=== PATIENT | female | born 1960 | race Caucasian/White ===

== ENCOUNTER → 2016-09-30 | Day surgery (SDC) | payer OTHER, BC ==
[2016-09-23 13:30] VITALS: Ht 156.2 cm; Wt 43.6 kg
[~2016-09-30] VITALS: Ht 156.2 cm; Wt 43.6 kg
[~2016-09-30] MED LIST: ALBU0.08 INH; AMLO-110 PO; AMLO-114 PO; APR/25 PO; APR25 PO; CALC600T37; CALC667C PO; CALC667C4 PO; DXY100 PO; ETOMIDATE 2 MG/ML 20 ML VIAL IV ONE; EpHEDrine SULFATE INJ 50 MG/ML AMP IV PRN; FERR325T5 PO; FERR325T51 PO; INSUINJ20 SC; IPRASOL4 INH; LATA0.009 OP; LEVO75TA5 PO; LIDOCAINE HCL 2% 2 ML VIAL (20MG/ML) ONE; LPR25 PO; MULT-650 PO; NEBUMIS38 INH; NYSS5 PO; ONDA4TAB46 PO; ONDANSETRON INJ 2 MG/ML 2 ML VIAL IV PRN; OXGN; OXYC1TAB3 PO; PRED-301 PO; PROPOFOL IV EMULSION 10 MG/ML 20 ML VIAL IV ONE; PRT/20 PO; PRVIN525 INH; PRVIN525 NEB; RRALBUT2.5 NEB; SIMV20TA2 PO
--- NOTE | 2016-09-30 13:40 | Endo History and Physical ---
History & Physical Date of Service: Sep 30, 2016. Chief Complaint: History of PUD for f/u EGD today Referring Physician: Osterling History of Present Illness Patient with a history of PUD s/p EGD about 3 months ago for a surveillance examination today. Past Medical History Fractures, Anxiety, Reflux, Cancer, High Cholesterol, Heart Disease, Hypertension, COPD, Thyroid Disease, Kidney Disease Past Surgical History Hx Cardiac Surgery: No Hx Internal Defibrillator: No Hx Pacemaker: No Hx Abdominal Surgery: No Hx of Implantable Prosthesis: No Hx Post-Op Nausea and Vomiting: No Hx Cancer Surgery: Yes (LT BREAST LUMPECTOMY) Hx Thoracic Surgery: No Hx Orthopedic: No Hx Urinary Tract Surgery: No Family History None Social History Smoking Status: Never Smoker Hx Substance Use: No Hx Alcohol Use: No Allergies Coded Allergies: Vancomycin (Verified Allergy, Intermediate, RASH-ELISA SYNDROME, 09/23/16) Atropine (Verified Allergy, Unknown, "BREATHING PROBLEMS", 09/23/16) Dipyridamole (Verified Allergy, Unknown, "BAD RXN", 09/30/16) PT STATES SHE BECOME ILL, AND HAD LOST THE NEXT TWO DAYS FAR MEMORY, HALLUCINATIONS, COMBATIVE Naproxen (Verified Allergy, Unknown, facial edema, 09/23/16) Linezolid (Verified Adverse Reaction, Severe, Thrombocytopenia, 09/23/16) Previous chart review from 11/2013 to 12/2015 shows thrombocytopenia associated with administration of Zyvox Aspirin (Verified Adverse Reaction, Mild, STOMACH CRAMPS, 09/23/16) Current Medications Reported Home Medications Medications Dose Route/Sig Max Daily Dose Days Date Category Novolin N U-100 (Insulin Isophane (Human)) 100 Unit/Ml Inj 12 Units SC QAM 09/23/16 Reported Oxygen Gas 2 Liters NA CONTINOUS 09/23/16 Reported Prednisone 5 Mg Tab 5 Mg PO QAM 09/23/16 Reported Albuterol Sulfate (Albuterol Sulf) 2.5 Mg/0.5 Ml Nebu 0.5 Ml NEB Q6 PRN 07/21/16 Reported Xalatan 0.005% Oph Nasreen (Latanoprost) 0.005 % Nasreen 1 Drops OP HS 07/21/16 Reported Norvasc (Amlodipine Besylate) 5 Mg Tab 5 Mg PO QAM 07/21/16 Reported Proventil 0.083% 2.5MG/3ML (Albuterol Sulfate) Nebu 2.5 Mg INH QID PRN 04/28/16 Reported Phoslo 667 Mg (Calcium Acetate (Phosphate Bin) 667 Mg Cap 667 Mg PO TIDM 04/28/16 Reported Iron Supplement (Ferrous Sulfate) 325 Mg Tab 1 Tab PO BID 02/11/16 Reported Apresoline (Hydralazine Hcl) 25 Mg Tab 25 Mg PO TID 12/19/13 Reported Levothyroxine Sodium 75 Mcg Tab 75 Mcg PO QAM 08/31/13 Reported Zocor (Simvastatin) 20 Mg Tab 20 Mg PO QAM 01/14/10 Reported Vital Signs Weight (Kilograms): 43.64 Height (Feet): 5 Height (Inches): 1.5 Date Time Temp Pulse Resp B/P Pulse Ox O2 Delivery O2 Flow Rate FiO2 09/30/16 12:46 36.5 93 16 139/68 92 Room Air Physical Exam General Appearance: no apparent distress Respiratory/Chest: Auscultation: deminished air movement Cardiovascular: Heart Auscultation: RRR, II/ RJ Assessment and Plan EGD for surveillance of PUD
--- NOTE | 2016-09-30 14:16 | GI REPORT ---
Procedure Date: 09/30/2016 2:04 PM Procedure: Upper GI endoscopy Indications: Follow-up of peptic ulcer Medicines: Monitored Anesthesia Care Complications: No immediate complications. Estimated blood loss: Minimal. Estimated Blood Loss: Estimated blood loss was minimal. Procedure: Pre-Anesthesia Assessment: - Prior to the procedure, a History and Physical was performed, and patient medications, allergies and sensitivities were reviewed. The patient's tolerance of previous anesthesia was reviewed. - The risks and benefits of the procedure and the sedation options and risks were discussed with the patient. All questions were answered and informed consent was obtained. - Patient identification and proposed procedure were verified prior to the procedure by the physician, the nurse and the cost clerk. The procedure was verified in the procedure room. - Pre-procedure physical examination revealed no contraindications to sedation. - ASA Grade Assessment: IV - A patient with severe systemic disease that is a constant threat to life. - After reviewing the risks and benefits, the patient was deemed in satisfactory condition to undergo the procedure. - The anesthesia plan was to use monitored anesthesia care (MAC). - Immediately prior to administration of medications, the patient was re-assessed for adequacy to receive sedatives. - The heart rate, respiratory rate, oxygen saturations, blood pressure, adequacy of pulmonary ventilation, and response to care were monitored throughout the procedure. - The physical status of the patient was re-assessed after the procedure. After obtaining informed consent, the endoscope was passed under direct vision. Throughout the procedure, the patient's blood pressure, pulse, and oxygen saturations were monitored continuously. The scope was introduced through the mouth, and advanced to the second part of duodenum. The upper GI endoscopy was accomplished without difficulty. The patient tolerated the procedure well. Findings: The examined esophagus was normal. A small hiatus hernia was found. The proximal extent of the gastric folds (end of tubular esophagus) was 36 cm from the incisors. The hiatal narrowing was 38 cm from the incisors. The Z-line was 36 cm from the incisors. The gastric fundus, gastric body and incisura were normal. Two 10 mm mucosal papules (nodules) with no bleeding and no stigmata of recent bleeding were found in the gastric antrum (most likely prior gastric ulcers). Biopsies were taken with a cold forceps for histology. Estimated blood loss was minimal. The examined duodenum was normal. Impression: - Small hiatus hernia. - Normal gastric fundus, gastric body and incisura. - Two mucosal papules (nodules) found in the stomach. Biopsied. These most likely repesent healing gastric ulcers. If biopsies are negative then no further follow-up will be needed. - Normal examined duodenum. Recommendation: - Discharge patient to home (ambulatory). - Advance diet as tolerated today. - Await pathology results. - Use Protonix (pantoprazole) 40 mg PO daily indefinitely. - Return to my office PRN. Gisell Paulson D.O. Gisell Paulson, 09/30/2016 2:14:31 PM This report has been signed electronically. Note Initiated On: 09/30/2016 2:04 PM
--- NOTE | 2016-09-30 14:19 | Discharge Instructions ---
Endoscopy Patient Instructions Date / Procedure(s) Performed Sep 30, 2016. EGD Allergy Information Coded Allergies: Vancomycin (Verified Allergy, Intermediate, RASH-ELISA SYNDROME, 09/23/16) Atropine (Verified Allergy, Unknown, "BREATHING PROBLEMS", 09/23/16) Dipyridamole (Verified Allergy, Unknown, "BAD RXN", 09/30/16) PT STATES SHE BECOME ILL, AND HAD LOST THE NEXT TWO DAYS FAR MEMORY, HALLUCINATIONS, COMBATIVE Naproxen (Verified Allergy, Unknown, facial edema, 09/23/16) Linezolid (Verified Adverse Reaction, Severe, Thrombocytopenia, 09/23/16) Previous chart review from 11/2013 to 12/2015 shows thrombocytopenia associated with administration of Zyvox Aspirin (Verified Adverse Reaction, Mild, STOMACH CRAMPS, 09/23/16) Discharge Date / Findings Sep 30, 2016. 2 gastric nodules, likely related to prior gastric ulcers Medication Instructions Stopped Medication(s): insulin, ferrous sulfate and zocor Reported Home Medications Medications Dose Route/Sig Max Daily Dose Days Date Category Novolin N U-100 (Insulin Isophane (Human)) 100 Unit/Ml Inj 12 Units SC QAM 09/23/16 Reported Oxygen Gas 2 Liters NA CONTINOUS 09/23/16 Reported Prednisone 5 Mg Tab 5 Mg PO QAM 09/23/16 Reported Albuterol Sulfate (Albuterol Sulf) 2.5 Mg/0.5 Ml Nebu 0.5 Ml NEB Q6 PRN 07/21/16 Reported Xalatan 0.005% Oph Nasreen (Latanoprost) 0.005 % Nasreen 1 Drops OP HS 07/21/16 Reported Norvasc (Amlodipine Besylate) 5 Mg Tab 5 Mg PO QAM 07/21/16 Reported Proventil 0.083% 2.5MG/3ML (Albuterol Sulfate) Nebu 2.5 Mg INH QID PRN 04/28/16 Reported Phoslo 667 Mg (Calcium Acetate (Phosphate Bin) 667 Mg Cap 667 Mg PO TIDM 04/28/16 Reported Iron Supplement (Ferrous Sulfate) 325 Mg Tab 1 Tab PO BID 02/11/16 Reported Apresoline (Hydralazine Hcl) 25 Mg Tab 25 Mg PO TID 12/19/13 Reported Levothyroxine Sodium 75 Mcg Tab 75 Mcg PO QAM 08/31/13 Reported Zocor (Simvastatin) 20 Mg Tab 20 Mg PO QAM 01/14/10 Reported Provider Instructions Activity Restrictions - No exercising or heavy lifting for 24 hours. - Do not drink alcohol the day of the procedure. - Do not drive a car or operate machinery until the day after the procedure. - Do not make any important decisions or sign important papers in 24 hours after the procedure. Following Day: - Return to full activity which may include returning to work/school. Diet Start your diet with liquids and light foods (jello, soup, juice, toast). Then eat your usual diet if not nauseated. Treatment For Common After Affects For mild abdominal pain, bloating, or excessive gas: - Rest - Eat lightly - Lie on right side Follow-Up Information Follow-up with Dr. Taylor as scheduled Continue Protonix 40 mg per day Follow-up with my office as needed. Anesthesia Information What You Should Know You have had a procedure that required some medicine to reduce anxiety and discomfort. This treatment is called moderate sedation. After receiving the treatment, you may be sleepy, but you will be able to breathe on your own. The effects of the treatment may last for several hours. Follow these instructions along with Activity/Diet recommendations noted above: * Do NOT do anything where dizziness or clumsiness would be dangerous. * Rest quietly at home today, then you can be up and about tomorrow. * Have a responsible person stay with you the rest of today. * You may have had an I.V. today. If so, you may take the dressing off later today. Recommendations Call your doctor if: * Trouble breathing * Continuous vomiting for more than 24 hours * Temperature above 101 degrees * Severe abdominal pain or bloating * Pain not relieved by pain medicine ordered * There is increased drainage or redness from any incision * A large amount of rectal bleeding greater than 2-3 tablespoons. (If you had a polyp/s removed or have hemorrhoids, a small amount of blood - from the rectum is to be expected.) * You have any unanswered questions or concerns. IN THE EVENT OF A SERIOUS EMERGENCY, GO TO THE NEAREST EMERGENCY ROOM Your discharge instructions were prepared by provider Gisell Paulson. Patient Instructions Signature Page Mary Lou Grant Patient (or Guardian) Signature/Date: I have read and understand the instructions given to me by my caregivers. Caregiver/RN/Doctor Signature/Date: The above-named patient and/or guardian has received patient instructions on this date. + Original Patient Signature Page (only) stays with chart. Please make copy for patient.
--- NOTE | 2016-09-30 14:31 | Anesthesiology Progress Note ---
Anesthesia Post Op Note Date & Time Sep 30, 2016 at 14:30 Vital Signs Pain Intensity: 0 Vital Signs Past 12 Hours Date Time Temp Pulse Resp B/P Pulse Ox O2 Delivery O2 Flow Rate FiO2 09/30/16 12:46 36.5 93 16 139/68 92 Room Air Notes Mental Status: alert / awake / arousable, participated in evaluation Pt Amnestic to Procedure: Yes Nausea / Vomiting: adequately controlled Pain: adequately controlled Airway Patency, RR, SpO2: stable & adequate BP & HR: stable & adequate Hydration State: stable & adequate Anesthetic Complications: no major complications apparent
[2016-09-30 14:48] VITALS: BP 162/74; PULSE 88; O2SAT 99
== END | disposition home or self-care (01) ==
LOC: C.GI 12:15
PROVIDERS: ATTEND Internal Medicine Gastroenterology
DX: Z09 Encounter for follow-up examination after completed treatment for conditions other than malignant neoplasm (principal); K27.9 Peptic ulcer, site unspecified, unspecified as acute or chronic, without hemorrhage or perforation; K44.9 Diaphragmatic hernia without obstruction or gangrene; K31.89 Other diseases of stomach and duodenum; E11.9 Type 2 diabetes mellitus without complications; Z99.2 Dependence on renal dialysis; J44.9 Chronic obstructive pulmonary disease, unspecified; E78.5 Hyperlipidemia, unspecified; Z87.891 Personal history of nicotine dependence; Z85.3 Personal history of malignant neoplasm of breast; Z88.1 Allergy status to other antibiotic agents; Z79.4 Long term (current) use of insulin

== ENCOUNTER 2016-10-11 09:12 | Emergency (ER) | payer OTHER, BC ==
[~2016-10-11] VITALS: Ht 154.9 cm; Wt 48.3 kg
[~2016-10-11 09:12] MED LIST changes: -AMLO-114 PO; -APR/25 PO; -CALC600T37; -CALC667C4 PO; -DXY100 PO; -ETOMIDATE 2 MG/ML 20 ML VIAL IV ONE; -EpHEDrine SULFATE INJ 50 MG/ML AMP IV PRN; -FERR325T5 PO; -IPRASOL4 INH; -LIDOCAINE HCL 2% 2 ML VIAL (20MG/ML) ONE; -LPR25 PO; -MULT-650 PO; -NEBUMIS38 INH; -NYSS5 PO; -ONDA4TAB46 PO; -ONDANSETRON INJ 2 MG/ML 2 ML VIAL IV PRN; -OXYC1TAB3 PO; -PROPOFOL IV EMULSION 10 MG/ML 20 ML VIAL IV ONE; -PRT/20 PO; -PRVIN525 INH; -PRVIN525 NEB
[2016-10-11 09:23] VITALS: TEMP 36.3; Ht 154.9 cm; Wt 48.3 kg
--- NOTE | 2016-10-11 10:08 | EMERGENCY ROOM VISIT NOTE ---
History Report prepared by Conner: Nati Luna Under the Supervision of: Dr. Deric Gusman M.D. First contact with patient: 09:46 Chief Complaint: SWELLING TO EXTREMITY Stated Complaint: FISTULA/SWELLING TO LEFT ARM History of Present Illness The patient is a 56 year old female who presents to the Emergency Room with complaints of persistent left arm swelling. She is accompanied by her . The patient is a dialysis patient with a fistula in her left arm that was placed at [facility]. There was some leakage noticed this morning at her dialysis appointment, so her doctor, Dr. Rojas, [facility], referred her here to the ED for further evaluation. She was able to be completely dialyzed this morning. The patient complains of numbness and tingling in her left arm and hand and rates her discomfort as a 10/10. She denies any recent fevers or cough or cold symptoms. Source of History: patient, spouse/significant other Onset: BOX [employer] Position: arm (left) Symptom Intensity: 10/10 Quality: numbness (numbness and tingling) Timing: other (persistent) Associated Symptoms: No cough (cough or cold symptoms), No fevers Review of Systems See HPI for pertinent positives & negatives. A total of 10 systems reviewed and were otherwise negative. Past Medical & Surgical Medical Problems: (1) Anemia of chronic renal failure (2) Aortitis (3) C. 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 I have discussed the case with the physician statistical assistant and agree with the plan. Please refer to the PA note Family History CVA FH: breast cancer MOTHER Social History Smoking Status: Former Smoker Alcohol Use: none Drug Use: none Marital Status: Housing Status: lives with family Occupation Status: retired Current/Historical Medications Scheduled Albuterol Sulf (Albuterol Sulfate), 0.5 ML INH Q6 Amlodipine (Norvasc), 5 MG PO QAM Ferrous Sulfate (Ferrous Sulfate), 1 TAB PO BID Insulin Isophane (Human) (Novolin N U-100), 12 UNITS SC QAM Latanoprost (Xalatan 0.005% Oph Nasreen), 1 DROPS OP HS Levothyroxine Sodium (Levothyroxine Sodium), 75 MCG PO QAM Oxygen (Oxygen), 2 LITERS NA CONTINOUS Pantoprazole (Protonix), 20 MG PO DAILY Simvastatin (Zocor), 20 MG PO QAM Scheduled PRN Ondansetron Hcl (Zofran), 4 MG PO Q6 PRN for Nausea Oxycodone Immediate Rel Tab (Roxicodone Ir), 1-2 TAB PO Q4H PRN for Severe Pain Allergies Coded Allergies: Vancomycin (Verified Allergy, Intermediate, RASH-ELISA SYNDROME, 10/11/16) Atropine (Verified Allergy, Unknown, "BREATHING PROBLEMS", 10/11/16) Dipyridamole (Verified Allergy, Unknown, "BAD RXN", 10/11/16) PT STATES SHE BECOME ILL, AND HAD LOST THE NEXT TWO DAYS FAR MEMORY, HALLUCINATIONS, COMBATIVE Naproxen (Verified Allergy, Unknown, facial edema, 10/11/16) Linezolid (Verified Adverse Reaction, Severe, Thrombocytopenia, 10/11/16) Previous chart review from 11/2013 to 12/2015 shows thrombocytopenia associated with administration of Zyvox Aspirin (Verified Adverse Reaction, Mild, STOMACH CRAMPS, 10/11/16) Physical Exam Vital Signs Date Time Temp Pulse Resp B/P Pulse Ox O2 Delivery O2 Flow Rate FiO2 10/11/16 12:36 84 18 152/84 93 10/11/16 11:05 83 18 148/48 92 Room Air 10/11/16 09:23 36.3 103 16 145/67 96 Room Air Physical Exam General: Chronically ill-appearing older female, well developed, well nourished in no acute distress, breathing comfortably on room air. Normal speech. HEENT: Normal cephalic atraumatic. Pupils are equal round and reactive to light. Extraocular movements are intact. Oropharynx is pink with moist mucous membranes. No swelling of the mouth lips or tongue. Neck: Supple with a midline trachea. No meningeal signs or stiffness, no JVD or bruits. No Stridor. Chest: Clear to auscultation bilaterally. No wheezes or rhonchi. No increased work of breathing. Heart: regular rate and rhythm. Abdomen: Soft nontender, nondistended without rebound guarding or rigidity. Extremities: Fistula in left proximal arm, palpable thrill, distally left hand is pink and well perfused appearing, normal motor sensation and pulse exam, good capillary refill. Proximal arm tenderness with mild to moderate sized hematoma extending to left axilla and chest. No calf tenderness or assymetry Spine/Back. Non tender to palpation. No CVA tenderness Skin: Good turgor without rashes. Neurologic exam: Cranial nerves two through 12 are intact. Motor and sensation are intact and symmetrical throughout. Medical Decision & Procedures Laboratory Results 10/11/16 10:15 Red Blood Count 3.54, Mean Corpuscular Volume 89.8, Mean Corpuscular Hemoglobin 27.4, Mean Corpuscular Hemoglobin Concent 30.5, Mean Platelet Volume 9.9, Neutrophils (%) (Auto) 78.5, Lymphocytes (%) (Auto) 9.4, Monocytes (%) (Auto) 9.2, Eosinophils (%) (Auto) 1.4, Basophils (%) (Auto) 0.3, Neutrophils # (Auto) 7.69, Lymphocytes # (Auto) 0.92, Monocytes # (Auto) 0.90, Eosinophils # (Auto) 0.14, Basophils # (Auto) 0.03 10/11/16 10:15 Test 10/11/16 10:15 White Blood Count 9.80 K/uL (4.8-10.8) Red Blood Count 3.54 M/uL (4.2-5.4) Hemoglobin 9.7 g/dL (12.0-16.0) Hematocrit 31.8 % (37-47) Mean Corpuscular Volume 89.8 fL (80-100) Mean Corpuscular Hemoglobin 27.4 pg (25-34) Mean Corpuscular Hemoglobin Concent 30.5 g/dl (32-36) Platelet Count 160 K/uL (130-400) Mean Platelet Volume 9.9 fL (7.4-10.4) Neutrophils (%) (Auto) 78.5 % Lymphocytes (%) (Auto) 9.4 % Monocytes (%) (Auto) 9.2 % Eosinophils (%) (Auto) 1.4 % Basophils (%) (Auto) 0.3 % Neutrophils # (Auto) 7.69 K/uL (1.4-6.5) Lymphocytes # (Auto) 0.92 K/uL (1.2-3.4) Monocytes # (Auto) 0.90 K/uL (0.11-0.59) Eosinophils # (Auto) 0.14 K/uL (0-0.5) Basophils # (Auto) 0.03 K/uL (0-0.2) RDW Standard Deviation 55.3 fL (36.4-46.3) RDW Coefficient of Variation 17.3 % (11.5-14.5) Immature Granulocyte % (Auto) 1.2 % Immature Granulocyte # (Auto) 0.12 K/uL (0.00-0.02) Nucleated RBC Absolute Count (auto) 0.10 K/uL (0-0) Nucleated Red Blood Cells % 1.1 % Prothrombin Time 10.8 SECONDS (9.0-12.0) Prothromb Time International Ratio 1.0 (0.9-1.1) Activated Partial Thromboplast Time 25.8 SECONDS (21.0-31.0) Partial Thromboplastin Ratio 1.0 Anion Gap 8.0 mmol/L (3-11) Est Creatinine Clear Calc Drug Dose 15.6 ml/min Estimated GFR () 19.2 Estimated GFR (Non- 16.6 BUN/Creatinine Ratio 5.4 (10-20) Calcium Level 8.1 mg/dl (8.5-10.1) Laboratory studies as stated above per my review. Medications Administered Medications (Trade) Dose Ordered Sig/Jcaob Route Start Time Stop Time Status Last Admin Dose Admin Oxycodone HCl (Roxicodone Immediate Rel Tab) 5 mg NOW STAT PO 10/11/16 10:15 10/11/16 10:17 DC 10/11/16 11:03 5 MG ED Course 1002: Past medical records reviewed. The patient was evaluated in room B10, and a complete history and physical examination were performed. 1015: Oxycodone HCl 5 mg PO. 1020: I reevaluated the patient. Dr. Haddad, [facility] , is currently at the bedside. The patient will be further evaluated. 1200: I reevaluated the patient. She is feeling well and resting comfortably. I discussed her results and discharge instructions and she verbalized complete understanding and agreement. Medical Decision Differential Diagnoses: Fistula malfunction, hematoma, compartment syndrome, anemia and vascular compromise. This patient comes in as described above. She's here for treatment and evaluation of swelling in her left arm proximal to her dialysis fistula. She had dialysis this morning which was completed however she did have some bruising proximal to this in her arm and chest. Dr. Traore the patient saw her in the ER as well as discussed the case with us. He wanted us to get blood work and talk to Dr. Haddad. We also order ultrasound. The patient's blood work is unremarkable and is unchanged from previous. She's not significantly anemic beyond baseline. She has no white count or fever. she has no electrode or metabolic abnormalities acutely. She is neurologically and neurovascularly intact, she nothing to suggest compartment syndrome or vascular compromise. Dr. Haddad actually came and saw the patient ER felt that she would be okay and do not feel we need to the ultrasound. He recommended pain medicine and cool compresses. The patient did receive OxyIR while she was in the ER as well as a cool compress. I told her she can use his home but nothing restrictive as that is where the dialysis fistula is. She should rest and drink plenty of fluids. she can use OxyIR 5 mg, one or 2 pills every 4-6 hours as needed for pain and return if: Increasing pain, worsening of symptoms, fever or chills, any new problems or concerns. She is happy with plan and discharged to home. Consults Time Called: 1021 Consulting Physician: Dr. Haddad, [facility] Returned Call: 1022 I reevaluated the patient. Dr. Haddad, [facility], is currently at the bedside. The patient will be further evaluated. Impression Primary Impression: Hematoma of arm Additional Impression: ESRD (end stage renal disease) on dialysis Scribe Attestation The scribe's documentation has been prepared under my direction and personally reviewed by me in its entirety. I confirm that the note above accurately reflects all work, treatment, procedures, and medical decision making performed by me. Departure Information Dispostion Home / Self-Care Prescriptions Oxycodone Immediate Rel Tab (ROXICODONE IR) 5 Mg Tab 1-2 TAB PO Q4H Y for Severe Pain, #24 TAB Prov: Deric Gusman M.D. 10/11/16 Referrals César Barnes M.D. (PCP) Patient Instructions My [facility] Additional Instructions Rest Use cool compresses For pain, may use OxyIR 5 mg, 1-2 pills every 4-6 hours as needed OxyIR may make you drowsy and do not take before drinking, driving, working Return if: Increasing pain, numbness or weakness, worsening of symptoms, pain or tingling or discoloration in her hand, increasing swelling or pain. Follow-up with your doctor in 1-2 days for recheck. Problem Qualifiers
[2016-10-11] MEDS ORDERED: OXYCODONE HCL IR 5 MG TAB (IMMEDIATE RELEASE) PO STA (10:15)
[2016-10-11 10:35] LABS: BASO % 0.3 %; BASO ABS # 0.03 K/uL (0-0.2); COMPLETE YES; EOS % 1.4 %; HEMATOCRIT 31.8 % (37-47); IG% 1.2 %; LYMPH % 9.4 %; LYMPH ABS # 0.92 K/uL (1.2-3.4); MEAN CELL VOLUME 89.8 fL (80-100); MEAN CORPUSCULAR HEMOGLOBIN 27.4 pg (25-34); MEAN CORPUSCULAR HGB CONC 30.5 g/dl (32-36); MEAN PLATELET VOLUME 9.9 fL (7.4-10.4); MONO % 9.2 %; NEUT % 78.5 %; PLATELET COUNT 160 K/uL (130-400); RED BLOOD COUNT 3.54 M/uL (4.2-5.4)
[2016-10-11] MEDS ORDERED: FERR325T5 PO (10:36)
[2016-10-11] MEDS ORDERED: PRVIN525 INH (10:36)
[2016-10-11] MEDS ORDERED: ONDA4TAB46 PO (10:41)
[2016-10-11] MEDS ORDERED: PRT/20 PO (10:43)
[2016-10-11 10:48] LABS: PROTHROMBIN TIME (PATIENT) 10.8 SECONDS (9.0-12.0)
[2016-10-11 10:54] LABS: BUN/CREATININE RATIO 5.4 (10-20); CALCIUM 8.1 mg/dl (8.5-10.1); POTASSIUM 3.5 mmol/L (3.5-5.1)
[2016-10-11] MEDS ORDERED: OXYC1TAB3 PO (12:04)
[2016-10-11 12:36] VITALS: BP 152/84; PULSE 84; O2SAT 93
[2017-02-25] MEDS ORDERED: CALC667C4 PO (11:16)
[2017-02-25] MEDS ORDERED: APR/25 PO (11:16)
[2017-02-25] MEDS ORDERED: CALC600T37 (11:16)
[2017-02-25] MEDS ORDERED: MULT-650 PO (11:17)
[2017-02-25] MEDS ORDERED: NEBUMIS38 INH (11:17)
[2017-03-26] MEDS ORDERED: IPRASOL4 INH (16:00)
[2017-03-26] MEDS ORDERED: LPR25 PO (16:00)
[2017-03-26] MEDS ORDERED: NYSS5 PO (16:00)
[2017-03-26] MEDS ORDERED: DXY100 PO (16:00)
== END 2016-10-11 12:37 | disposition home or self-care (01) ==
LOC: C.EDB 09:14
DX: S40.022A Contusion of left upper arm, initial encounter (principal); X58.XXXA Exposure to other specified factors, initial encounter; N18.6 End stage renal disease; Z99.2 Dependence on renal dialysis; D63.1 Anemia in chronic kidney disease; I25.10 Atherosclerotic heart disease of native coronary artery without angina pectoris; Z85.3 Personal history of malignant neoplasm of breast; J44.9 Chronic obstructive pulmonary disease, unspecified; E78.5 Hyperlipidemia, unspecified; K21.9 Gastro-esophageal reflux disease without esophagitis; I12.0 Hypertensive chronic kidney disease with stage 5 chronic kidney disease or end stage renal disease; E03.9 Hypothyroidism, unspecified; I73.9 Peripheral vascular disease, unspecified; D69.6 Thrombocytopenia, unspecified; Z87.891 Personal history of nicotine dependence; Z80.9 Family history of malignant neoplasm, unspecified; Z79.899 Other long term (current) drug therapy; Z99.81 Dependence on supplemental oxygen

== ENCOUNTER → 2016-12-26 | Outpatient (CLI) | payer OTHER, BC ==
[~2016-12-26] MED LIST changes: -ALBU0.08 INH; -APR25 PO; +CALC600T37; -CALC667C PO; +CALC667C4 PO; +DXY100 PO; +FERR325T5 PO; -FERR325T51 PO; +HYDR-4716 PO; +IPRASOL4 INH; +LPR25 PO; +MULT-650 PO; +NEBUMIS38 INH; +NYSS5 PO; +ONDA4TAB46 PO; +OXYC1TAB3 PO; -PRED-301 PO; +PRT/20 PO; +PRVIN525 INH; +PRVIN525 NEB; -RRALBUT2.5 NEB
--- NOTE | 2016-12-26 16:33 | MAMMOGRAPHY REPORT ---
BILATERAL DIGITAL SCREENING MAMMOGRAM TOMOSYNTHESIS WITH CAD: 12/26/2016 CLINICAL HISTORY: Asymptomatic. Personal history of breast cancer. TECHNIQUE: Breast tomosynthesis in addition to standard 2D mammography was performed. Current study was also evaluated with a Computer Aided Detection (CAD) system. COMPARISON: Comparison is made to exams dated: 04/16/2015 mammogram, 04/14/2014 mammogram, 04/11/2013 ma mmogram, 04/06/2012 mammogram, 04/04/2011 mammogram, and 03/21/2010 mammogram - [facility] enter. BREAST COMPOSITION: There are scattered areas of fibroglandular density in both breasts. FINDINGS: No suspicious masses, calcifications, or areas of architectural distortion are noted in e ither breast. There has been no significant interval change compared to prior exams. There are stab le post surgical changes in the left upper outer quadrant from prior lumpectomy, including stable de nsity, architectural distortion, surgical clips, and coarse benign dystrophic calcifications at the lumpectomy bed. Linear scar markers denote scars on the left superior breast. IMPRESSION: ACR BI-RADS CATEGORY 2: BENIGN There is no mammographic evidence of malignancy. A 1 year screening mammogram is recommended. The p atient will receive written notification of the results. Approximately 10% of breast cancers are not detected with mammography. A negative mammographic repor t should not delay biopsy if a clinically suggestive mass is present. Lashonda Chilel M.D. /:12/26/2016 13:42:59 Joint Finisher: Bandar JACKSON(Jake)(Waldo), [facility] letter sent: Normal 1/2 BI-RADS Code: ACR BI-RADS Category 2: Benign
== END | disposition home or self-care (01) ==
LOC: C.MAMM 10:36
PROVIDERS: ATTEND Family Medicine
DX: Z12.31 Encounter for screening mammogram for malignant neoplasm of breast (principal); Z08 Encounter for follow-up examination after completed treatment for malignant neoplasm; Z85.3 Personal history of malignant neoplasm of breast

== ENCOUNTER → 2017-02-25 | Outpatient (CLI) | payer OTHER, BC ==
[~2017-02-25] MED LIST changes: +APR/25 PO; -HYDR-4716 PO
--- NOTE | 2017-02-25 10:13 | DIAGNOSTIC IMAGING REPORT ---
CT SCAN OF THE CHEST WITHOUT IV CONTRAST CLINICAL HISTORY: Right lung mass. History of previous left-sided pulmonary resection. COMPARISON STUDY: Chest CT scans dated 07/22/2016 and 12/20/2013. TECHNIQUE: CT scan of the thorax was performed from the thoracic inlet to the upper abdomen. Images are reviewed in the axial, sagittal, and coronal planes. IV contrast was not administered for this examination as per the referring clinician. CT DOSE: 165.98 mGy.cm FINDINGS: Thyroid: The left thyroid lobe is atrophic. The right lobe is diminutive versus surgically absent. Thoracic aorta: There is advanced atherosclerotic calcification of the thoracic aorta, which is normal in caliber and demonstrates 4-vessel variant arch anatomy. Heart: The heart is enlarged and there is a small pericardial effusion. The coronary arteries are densely calcified. The main pulmonary arteries are dilated suggesting pulmonary artery hypertension. Lungs and pleural spaces: Emphysema is observed. The trachea and central airways are patent. An irregular focus of masslike consolidation with central cavitation is again seen in the right lower lobe on image #169. This measures 2.1 x 2.9 x 3.0 cm. An irregular nodular density in the right middle lobe along the major fissure is seen on image #156 and measures 11 mm. Postoperative change is identified in the left lower lobe and lingula. There is dense masslike consolidation seen dependently in the left lower lobe. There is diffuse centrilobular nodularity and groundglass change identified throughout both lungs. More focal patchy airspace consolidation is seen at the right lung base on image #210. A trace left pleural effusion is identified. Mild diffuse intralobular septal thickening is observed. Scattered calcified granulomas are identified. Mediastinum: There are numerous mildly enlarged and hyperdense mediastinal lymph nodes. These are unchanged dating back to 12/20/2013. A employee's representative pretracheal node on image #71 measures 9 mm short axis. A precarinal node on image #100 measures 12 mm short axis. A subcarinal node measures 13 mm in short axis. Alyce: Not well assessed without IV contrast. Slightly hyperdense hilar nodes are noted. Axillae: There is no axillary lymphadenopathy. A stent is noted in the left axilla. Upper abdomen: The spleen appears enlarged and there are numerous low-attenuation splenic lesions. These were also seen on prior studies. A tiny hiatal hernia is identified. The partially imaged left kidney is markedly atrophic. Skeletal structures: The skeletal structures are osteopenic. No lytic or blastic bony lesions are seen. There are healed left-sided rib fractures. IMPRESSION: 1. Again seen is a 3.0 cm focus of masslike consolidation in the right lower lobe. This demonstrates central cavitation and has decreased in size from the 07/22/2016 examination. Given the decrease in size an infectious/inflammatory process is favored. Neoplasm would be impossible to exclude. 2. There is now a large focus of dense masslike consolidation seen dependently at the left lung base. Again, an infectious/inflammatory process is favored. 3. Patchy airspace consolidation is seen at the right lung base. 4. There is a new 11 mm irregular density in the right middle lobe. The previously identified 13 mm right middle lobe density seen on 07/22/2016 has resolved. 5. Emphysema. 6. Diffuse groundglass change and centrilobular nodularity is similar to 07/22/2016. This likely represents an infectious/inflammatory process. This could also be seen in the setting of pulmonary hemorrhage or edema. 7. Cardiomegaly with evidence of pulmonary artery hypertension and a small pericardial effusion. Diffuse intralobular septal thickening is likely related to congestive change, possibly chronic. 8. Hyperdense and mildly enlarged mediastinal and hilar lymph nodes are unchanged dating back to 2013. This caries a broad differential and is nonspecific. Differential considerations include (but are not limited to) Castleman's disease, a pneumoconiosis, treated neoplasm, or sarcoidosis. 9. The spleen appears enlarged. Numerous low-attenuation splenic lesions are again seen. 10. Additional findings as above. Electronically signed by: Fortunato Morris M.D. 02/25/2017 10:12 AM Dictated Date/Time: 02/25/2017 9:52 AM
== END | disposition home or self-care (01) ==
LOC: C.CTS 09:41
PROVIDERS: ATTEND Surgery
DX: R91.8 Other nonspecific abnormal finding of lung field (principal); J43.9 Emphysema, unspecified; I51.7 Cardiomegaly; D73.89 Other diseases of spleen

== ENCOUNTER 2017-03-06 07:47 | Day surgery (SDC) | payer OTHER, BC ==
[2017-02-25 11:22] VITALS: BMI 18.0
[~2017-03-06] VITALS: Ht 154.9 cm; Wt 43.9 kg
[~2017-03-06 07:47] MED LIST changes: -CALC600T37; -DXY100 PO; -INSUINJ20 SC; -IPRASOL4 INH; -LATA0.009 OP; -LPR25 PO; -NYSS5 PO; -OXYC1TAB3 PO; -PRVIN525 INH; -PRVIN525 NEB; +SODIUM CHLORIDE 0.9% 1000ML IV SCH
[2017-03-06] MEDS ORDERED: PROPOFOL IV EMULSION 10 MG/ML 20 ML VIAL IV ONE (07:57)
[2017-03-06] MEDS ORDERED: ROCURONIUM BROMIDE 10 MG/ML 5 ML VIAL ONE (07:57)
[2017-03-06] MEDS ORDERED: GLYCOPYRROLATE INJ 0.2 MG/ML VIAL ONE (07:57)
[2017-03-06] MEDS ORDERED: ONDANSETRON INJ 2 MG/ML 2 ML VIAL ONE (07:57)
[2017-03-06] MEDS ORDERED: LARYING-O-JET KIT (LTA) ONE ×2 (07:57)
[2017-03-06] MEDS ORDERED: LIDOCAINE HCL 2% 2 ML VIAL (20MG/ML) ONE (07:57)
[2017-03-06] MEDS ORDERED: FENTANYL CITRATE INJ 50 MCG/1 ML 2 ML VIAL ONE (07:57)
[2017-03-06] MEDS ORDERED: MIDAZOLAM HCL 1 MG/ML 2ML VIAL ONE (07:57)
[2017-03-06] MEDS ORDERED: NEOSTIGMINE METHYLSULFATE 5 MG/5 ML SYR ONE (07:57)
[2017-03-06 08:21] VITALS: BP 164/73; PULSE 87; TEMP 36.7; O2SAT 100; Ht 154.9 cm; Wt 43.9 kg
[2017-03-06 09:20] LABS: CALCIUM 10.5 mg/dl (8.5-10.1); CREATININE 5.6 mg/dl (0.60-1.20); POTASSIUM 4.6 mmol/L (3.5-5.1)
--- NOTE | 2017-03-06 09:41 | History & Physical Bridge Note ---
H&P Re-Evaluation Bridge Note: I have examined the patient, reviewed the History & Physical and in the interval since the performance of the History & Physical I have noted the following changes of clinical significance: No changes noted
[2017-03-06] MEDS ORDERED: CISATRACURIUM BESYLATE IV SOLN 2 MG/ML 10 ML VIAL ONE (10:21)
[2017-03-06] MEDS ORDERED: DEXAMETHASONE SOD INJ 4 MG/ML VIAL ONE (10:21)
[2017-03-06] MEDS ORDERED: CLINDAMYCIN PHOS 150 MG/ML 2 ML VIAL ONE (10:23)
[2017-03-06] MEDS ORDERED: EpHEDrine SULFATE 50MG/5ML SYR ONE (10:36)
[2017-03-06] MEDS ORDERED: ONDANSETRON 4 MG TAB PO PRN (11:30)
--- NOTE | 2017-03-06 11:43 | [facility] Operative Report ---
Operative Report Operative Date Mar 06, 2017. Pre-Operative Diagnosis Persistent solid mass right lower lobe, bilateral lower lobe infiltrates Post-Operative Diagnosis same Procedure(s) Performed Navigational bronchoscopy with biopsy and brushings of bilateral lower lobe abnormalities Surgeon Dr. Darell Nguyen Burrer Marker Axle Surgeon(s) None Estimated Blood Loss 5 mL Findings No endobronchial lesions noted. No pus noted. Specimens Pathology specimens to be labeled and handled by respiratory and cytology staff members. Anesthesia Gen. anesthesia and endotracheal intubation Complication(s) None Disposition Recovery Room / PACU Indications This 57-year-old female who has a history of end-stage renal disease is being considered for kidney transplant. She has a history of pulmonary hemorrhage and an open lung biopsy on her last year. She treated for this however supra and inspected there is a cavitary lesion now in her right lower lobe infiltrative pattern left lower lobe. We discussed this in detail and I proceed with an electromagnetic navigational bronchoscopy with biopsies and cultures of both. She and her wished to proceed. Description of Procedure The patient was brought to the operating room and general anesthesia was induced and endotracheal tube placed. After appropriate timeout had been called a prophylactic antibiotic given fiberoptic bronchoscope was inserted through the endotracheal tube. There was very little in the way of mucus and no evidence of bleeding. There were no masses noted. Super dimension navigational probe was placed through the working channel the fiberoptic bronchoscope and the airways were registered. It was inserted towards the left lower lobe and I was easily able to get down into the lesion. Brushes were done as well as needle biopsies and then forceps biopsy for touch preps and bronchial washings. There was a mild amount of bleeding which stopped on its own with lavage. Discharge was inserted towards the right side and again the right lower lobe bronchus was able to be cannulated and the navigation probe right into the middle of the mass. Both of these lesions were confirmed with the use of the radial ultrasound probe. The was then, placed into this right lower lobe cavitary lesion. We were right in the middle of this. Brushings needle biopsies, forceps biopsies as well as bronchial washings were done. Then I came out and when it into this from a different angle as I had mapped two different pathways. I then repeated the brushes, needles, and forceps were repeated as well as washings. Scant amount of bleeding was noted and I irrigated out the right side for a while before it stopped. We then slowly removed the bronchoscope and saw no evidence of bleeding in the right or left. She tolerated well with negligible blood loss. His extubated and moved to securing. She tolerated well. I attest to the content of the Intraoperative Record and any orders documented therein. Any exceptions are noted below.
[2017-03-06] MEDS ORDERED: FENTANYL CITRATE INJ 50 MCG/1 ML 2 ML VIAL IV PRN (12:00)
[2017-03-06] MEDS ORDERED: MEPERIDINE HCL 25 MG/ML CARP IV PRN (12:00)
[2017-03-06] MEDS ORDERED: LABETALOL HCL IV 5 MG/ML 20ML IV PRN (12:00)
[2017-03-06] MEDS ORDERED: EpHEDrine SULFATE INJ 50 MG/ML AMP IV PRN (12:00)
[2017-03-06] MEDS ORDERED: HYDROmorphone INJ 1 MG/ML SYR IV PRN (12:00)
[2017-03-06] MEDS ORDERED: ONDANSETRON INJ 2 MG/ML 2 ML VIAL IV PRN (12:00)
--- NOTE | 2017-03-06 12:01 | DIAGNOSTIC IMAGING REPORT ---
CHEST 1 VIEW FRONTAL CLINICAL HISTORY: NAVIGATIONAL BRONCH bronchoscopy TECHNIQUE: Image intensifier COMPARISON STUDY: None FINDINGS: Image intensifier was used for a intraoperative navigational bronchoscopy IMPRESSION: Navigational bronchoscopy Electronically signed by: Donato Stark M.D. 03/06/2017 12:00 PM Dictated Date/Time: 03/06/2017 11:59 AM
[2017-03-06 12:15] VITALS: BP 157/71; PULSE 80; TEMP 36.7; O2SAT 96
--- NOTE | 2017-03-06 12:26 | Anesthesiology Progress Note ---
Anesthesia Post Op Note Date & Time Mar 06, 2017 at 12:26 Vital Signs Pain Intensity: 0 Vital Signs Past 12 Hours Date Time Temp Pulse Resp B/P (MAP) Pulse Ox O2 Delivery O2 Flow Rate FiO2 03/06/17 12:05 36.4 87 28 152/88 93 Nasal Cannula 2 03/06/17 11:55 90 26 137/70 96 Nasal Cannula 2 03/06/17 11:45 89 20 139/66 100 Mask 10 03/06/17 11:35 89 24 139/58 100 Mask 10 03/06/17 11:26 36.6 100 18 147/70 100 Mask 10 03/06/17 08:21 36.7 87 20 164/73 (103) 100 Room Air Notes Mental Status: alert / awake / arousable, participated in evaluation Pt Amnestic to Procedure: Yes Nausea / Vomiting: adequately controlled Pain: adequately controlled Airway Patency, RR, SpO2: stable & adequate BP & HR: stable & adequate Hydration State: stable & adequate Anesthetic Complications: no major complications apparent
--- NOTE | 2017-03-06 12:27 | DIAGNOSTIC IMAGING REPORT ---
CHEST ONE VIEW PORTABLE HISTORY: Status post bronchoscopy. COMPARISON: Chest 07/21/2016. FINDINGS: No pneumothorax. Left axillary vascular stent is again noted. The heart remains mildly enlarged. Mild diffuse interstitial thickening, unchanged. There may be trace bilateral pleural effusions. 6 cm right lower lobe masslike opacity has increased in size. This is likely due to the post bronchoscopy changes. IMPRESSION: No pneumothorax. 6 cm masslike opacity within the right lung base. Increase in size is likely due to the post bronchoscopy changes. Electronically signed by: Chucho Umana M.D. 03/06/2017 12:26 PM Dictated Date/Time: 03/06/2017 12:24 PM
--- NOTE | 2017-03-06 12:30 | Discharge Instructions ---
Discharge Instructions Date of Service Mar 06, 2017. Visit Reason for Visit: Right Lung Mass/Infiltrates, End Stage Renal Disea Discharge Discharge Diagnosis / Problem: same Discharge Goals Goal(s): Learn about illness (will discuss findings next week) Activity Recommendations Activity Limitations: resume your previous activity Anesthesia . Post Anesthesia Instructions: If you have had General Anesthesia or IV Sedation: * Do not drive today. * Resume driving when surgeon permits. * Do not make important decisions or sign legal documents today. * Call surgeon for: 1. Temperature elevations greater than 101 degrees F. 2. Uncontrollable pain. 3. Excessive bleeding. 4. Persistent nausea and vomiting. 5. Medication intolerance (nausea, vomiting or rash). * For nausea and vomiting use only clear liquids such as: tea, soda, bouillon until nausea subsides, then gradually increase diet as tolerated. * If you have any concerns or questions, call your surgeon's office. If physician is unavailable and it is an emergency, call 911 or go to the nearest emergency room. . Diet Recommendations Recommended Home Diet: resume previous diet Procedures Procedures Performed: Navigational Bronchoscopy with Cultures, Washings and Biopsies Pending Studies Studies pending at discharge: yes List of pending studies: cytology Medical Emergencies . Who to Call and When: Medical Emergencies: If at any time you feel your situation is an emergency, please call 911 immediately. . Non-Emergent Contact Non-Emergency issues call your: Primary Care Provider . . "Provider Documentation" section prepared by Darell Nguyen. .
[2017-03-06 12:45] VITALS: BP 166/71; PULSE 86; TEMP 36.7; O2SAT 96
[2017-03-06 13:15] VITALS: BP 144/65; PULSE 85; TEMP 36.7; O2SAT 95
[2017-03-06] MEDS ORDERED: FERROUS SULFATE 325 MG TAB PO SCH (21:00)
[2017-03-07] MEDS ORDERED: LEVOTHYROXINE 75 MCG TAB PO SCH (09:00)
[2017-03-07] MEDS ORDERED: CEROVITE ADV FORMULA TAB PO SCH (09:00)
[2017-03-07] MEDS ORDERED: CALCIUM ACETATE 667MG GELCAP PO SCH (09:00)
[2017-03-07] MEDS ORDERED: AMLODIPINE BESYLATE 5 MG TAB PO SCH (09:00)
[2017-03-07] MEDS ORDERED: PANTOprazole SOD 40 MG TAB PO SCH (09:00)
[2017-03-07] MEDS ORDERED: SIMVASTATIN 20 MG TAB PO SCH (09:00)
[2017-03-26] MEDS ORDERED: IPRASOL4 INH (16:00)
[2017-03-26] MEDS ORDERED: NYSS5 PO (16:00)
[2017-03-26] MEDS ORDERED: LPR25 PO (16:00)
[2017-03-26] MEDS ORDERED: DXY100 PO (16:00)
== END 2017-03-06 13:20 | disposition home or self-care (01) ==
LOC: C.ACU 07:47
PROVIDERS: ATTEND Surgery
DX: R91.8 Other nonspecific abnormal finding of lung field (principal); N18.6 End stage renal disease; I12.0 Hypertensive chronic kidney disease with stage 5 chronic kidney disease or end stage renal disease; E11.22 Type 2 diabetes mellitus with diabetic chronic kidney disease; J44.9 Chronic obstructive pulmonary disease, unspecified; I25.10 Atherosclerotic heart disease of native coronary artery without angina pectoris; E03.9 Hypothyroidism, unspecified; G47.33 Obstructive sleep apnea (adult) (pediatric); Z68.1 Body mass index [BMI] 19.9 or less, adult; Z79.899 Other long term (current) drug therapy; Z98.890 Other specified postprocedural states; Z90.12 Acquired absence of left breast and nipple; Z88.1 Allergy status to other antibiotic agents; Z87.891 Personal history of nicotine dependence; Z80.3 Family history of malignant neoplasm of breast

== ENCOUNTER 2017-03-24 04:17 | Inpatient (IN) | payer OTHER, BC ==
[2017-03-24] VITALS (25 sets, daily range): BP systolic 92–188; BP diastolic 48–98; PULSE 62–88; TEMP 36.4–36.7; O2SAT 92–98; Ht 154.9 cm; Wt 45.3 kg
[~2017-03-24] VITALS: Ht 154.9 cm; Wt 45.3 kg
[~2017-03-24 04:17] MED LIST changes: +IV FLUIDS COMPLETED SCH; -SODIUM CHLORIDE 0.9% 1000ML IV SCH
[2017-03-24 05:52] LABS: BASO % 0.4 %; BASO ABS # 0.03 K/uL (0-0.2); EOS % 1.1 %; IG% 0.1 %; LYMPH % 5.2 %; LYMPH ABS # 0.39 K/uL (1.2-3.4); MEAN CELL VOLUME 83.8 fL (80-100); MEAN CORPUSCULAR HEMOGLOBIN 25.7 pg (25-34); MEAN CORPUSCULAR HGB CONC 30.7 g/dl (32-36); MEAN PLATELET VOLUME 9.2 fL (7.4-10.4); MONO % 7.8 %; NEUT % 85.4 %; PLATELET COUNT 105 K/uL (130-400); RED BLOOD COUNT 3.46 M/uL (4.2-5.4); WHITE BLOOD COUNT 7.56 K/uL (4.8-10.8)
[2017-03-24] MEDS ORDERED: METOPROLOL TARTRATE 1 MG/ML VIAL IV STA (06:18)
[2017-03-24] MEDS ORDERED: PRVIN525 NEB (06:20)
[2017-03-24 06:23] LABS: ALKALINE PHOSPHATASE 136 U/L (45-117); ALT/SGPT 11 U/L (12-78); AST/SGOT 15 U/L (15-37); BLOOD UREA NITROGEN 61 mg/dl (7-18); BUN/CREATININE RATIO 6.9 (10-20); CALCIUM 8.6 mg/dl (8.5-10.1); CARBON DIOXIDE 23 mmol/L (21-32); CHLORIDE 107 mmol/L (98-107); GLUCOSE 114 mg/dl (70-99); MAGNESIUM 2.2 mg/dl (1.8-2.4); POTASSIUM 4.9 mmol/L (3.5-5.1); SODIUM 140 mmol/L (136-145)
--- NOTE | 2017-03-24 06:31 | DIAGNOSTIC IMAGING REPORT ---
CHEST ONE VIEW PORTABLE HISTORY: 57 years Female CHEST PAIN COMPARISON: 03/06/2017 chest radiograph, chest CT 01/28/2017 TECHNIQUE: Portable upright AP view of the chest FINDINGS: Cardiac silhouette is again enlarged. There is atherosclerosis of the aorta. There is pulmonary vascular congestion with background reticulation and right greater than left bibasilar alveolar opacities with blunting of the costophrenic angles. The bibasilar opacities have slightly progressed from comparison and become more confluent. The masslike opacity seen on the prior study is not as apparent however is again seen, 1.9 x 3.5 cm likely correlating with focal groundglass opacity on comparison chest CT which measured 2.7 x 2.4 cm. Stent graft of the left axillary region is seen. The bones appear grossly intact. IMPRESSION: 1. Cardiomegaly with mild pulmonary edema pattern and small bilateral pleural effusions. 2. Bibasilar alveolar opacities may reflect atelectasis or pneumonia. 3. Focal masslike opacity of the right lung base likely correlates with 2.7 cm groundglass opacity seen on comparison chest CT dated 01/28/2017. This appears slightly smaller than comparison chest radiograph. Close follow-up is needed. The above report was generated using voice recognition software. It may contain grammatical, syntax or spelling errors. Electronically signed by: Case Plunkett M.D. 03/24/2017 6:30 AM Dictated Date/Time: 03/24/2017 6:26 AM
[2017-03-24] MEDS ORDERED: NITROGLYCERIN 0.4 MG SL PER TAB CHARGE SL STA (06:35)
--- NOTE | 2017-03-24 06:37 | EMERGENCY ROOM VISIT NOTE ---
History First contact with patient: 04:29 Chief Complaint: ARM PAIN Stated Complaint: FISTULA IN LEFT ARM,FEELS FUNNY History of Present Illness The patient is a 57 year old female who presents to the Emergency Room with complaints of chest discomfort that radiates to her left arm since last night greater than 10 hours. She describes the discomfort as discomfort, 4-10. Nothing makes it better or worse. Patient is on dialysis and does not make urine. She gets dialysis Thursday and . She follows at Dr. Vaca. Patient chronically wears oxygen. Patient denies dyspnea, leg pain or swelling, numbness, tingling, diaphoresis, nausea, vomiting, diarrhea, abdominal pain. No prior heart disease. No recent stress test or echo. Review of Systems See HPI for pertinent positives & negatives. A total of 10 systems reviewed and were otherwise negative. Past Medical/Surgical History Medical Problems: (1) Anemia of chronic renal failure (2) Aortitis (3) C. 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 (15) History of interstitial lung disease (16) Hypothyroidism (17) Nodular goiter (18) Non-ischemic cardiomyopathy (19) Nonobstructive coronary artery disease (20) Peripheral vascular disease (21) Recurrent epistaxis (22) s/p AV fistula (23) Salmonella bacteremia (24) Subconjunctival hemorrhage of both eyes (25) Thrombocytopenia Surgical Problems: (1) H/O mastectomy (2) H/O partial thyroidectomy Family History CVA FH: breast cancer MOTHER Social History Smoking Status: Former Smoker Alcohol Use: none Drug Use: none Marital Status: Housing Status: lives with family Occupation Status: retired Current/Historical Medications Scheduled Amlodipine (Norvasc), 5 MG PO QAM Calcium Acetate (Phoslo 667 Mg), 1 CAP PO DAILY WITH MEALS Ferrous Sulfate (Ferrous Sulfate), 1 TAB PO BID Hydralazine HCl (Hydralazine HCl), 1 TAB PO QAM Levothyroxine Sodium (Levothyroxine Sodium), 75 MCG PO QAM Multiple Vitamins W/ Minerals (Prorenal Qd), 1 TAB PO QAM Pantoprazole (Protonix), 20 MG PO QAM Simvastatin (Zocor), 20 MG PO QAM Scheduled PRN Albuterol Sulf (Albuterol Sulfate), 1 VIAL NEB Q6 PRN for Shortness of Breath Home O2 Therapy (Oxygen), 2 LITERS NA UD PRN for COPD Ondansetron Hcl (Zofran), 4 MG PO Q6 PRN for Nausea Allergies Coded Allergies: Vancomycin (Verified Allergy, Intermediate, RASH-ELISA SYNDROME, 03/24/17) Atropine (Verified Allergy, Unknown, "BREATHING PROBLEMS", 03/24/17) Dipyridamole (Verified Allergy, Unknown, "BAD RXN", 03/24/17) PT STATES SHE BECOME ILL, AND HAD LOST THE NEXT TWO DAYS FAR MEMORY, HALLUCINATIONS, COMBATIVE Naproxen (Verified Allergy, Unknown, facial edema, 03/24/17) Linezolid (Verified Adverse Reaction, Severe, Thrombocytopenia, 03/24/17) Previous chart review from 11/2013 to 12/2015 shows thrombocytopenia associated with administration of Zyvox Aspirin (Verified Adverse Reaction, Mild, STOMACH CRAMPS, 03/24/17) Physical Exam Vital Signs Date Time Temp Pulse Resp B/P (MAP) Pulse Ox O2 Delivery O2 Flow Rate FiO2 03/24/17 06:38 96 20 191/89 96 Nasal Cannula 2.0 03/24/17 06:29 101 209/88 03/24/17 05:56 124 24 209/88 98 Nasal Cannula 2.0 03/24/17 05:14 96 Nasal Cannula 2.0 03/24/17 05:14 96 Nasal Cannula 2.0 03/24/17 04:39 107 03/24/17 04:20 36.4 112 20 186/76 93 Nasal Cannula 2.0 Physical Exam VITALS: Vitals are noted on the nurse's note and reviewed by myself. Vital signs tachycardic GENERAL: Anxious appearing female wearing oxygen as normal, in no acute distress , nondiaphoretic, well-developed well-nourished. SKIN: The skin was without rashes, erythema, edema, or bruising. There is no tenting of the skin. Capillary reflex less than 2 seconds. HEAD: Normocephalic atraumatic. EARS: External auditory canals clear, tympanic membranes pearly aguilar without erythema or effusion bilaterally. EYES: Pupils equal round and reactive to light and accommodation. Conjunctivae without injection, sclerae without icterus. Extraocular movements intact. NOSE: Patent, turbinates without inflammation or discharge. MOUTH: Mucous membranes mildly dry. Pharynx without erythema or exudate. Uvula midline. Airway patent. Tongue does not deviate. NECK: Supple without nuchal rigidity. No lymphadenopathy. No thyromegaly. Cervical spine is nontender. No JVD. HEART: Regular rate and rhythm LUNGS: Mild diffuse and expiratory wheezes, without rales or rhonchi. No dullness to percussion. No retractions or accessory muscle use. ABDOMEN: Positive bowel sounds x 4. Normal tympanic percussion. Soft, nontender, without masses or organomegaly. Vera sign negative. No guarding or rebound tenderness. MUSCULOSKELETAL: No muscle atrophy, erythema, or edema noted. Left bicep fistula patent NEURO: Patient was alert and oriented to person place and time. Normal sensation to light and sharp touch. No focal neurological deficits. Medical Decision & Procedures Laboratory Results 03/24/17 05:44 Red Blood Count 3.46, Mean Corpuscular Volume 83.8, Mean Corpuscular Hemoglobin 25.7, Mean Corpuscular Hemoglobin Concent 30.7, Mean Platelet Volume 9.2, Neutrophils (%) (Auto) 85.4, Lymphocytes (%) (Auto) 5.2, Monocytes (%) (Auto) 7.8, Eosinophils (%) (Auto) 1.1, Basophils (%) (Auto) 0.4, Neutrophils # (Auto) 6.46, Lymphocytes # (Auto) 0.39, Monocytes # (Auto) 0.59, Eosinophils # (Auto) 0.08, Basophils # (Auto) 0.03 03/24/17 05:44 Test 03/24/17 05:44 03/24/17 05:48 White Blood Count 7.56 K/uL (4.8-10.8) Red Blood Count 3.46 M/uL (4.2-5.4) Hemoglobin 8.9 g/dL (12.0-16.0) Hematocrit 29.0 % (37-47) Mean Corpuscular Volume 83.8 fL (80-100) Mean Corpuscular Hemoglobin 25.7 pg (25-34) Mean Corpuscular Hemoglobin Concent 30.7 g/dl (32-36) Platelet Count 105 K/uL (130-400) Mean Platelet Volume 9.2 fL (7.4-10.4) Neutrophils (%) (Auto) 85.4 % Lymphocytes (%) (Auto) 5.2 % Monocytes (%) (Auto) 7.8 % Eosinophils (%) (Auto) 1.1 % Basophils (%) (Auto) 0.4 % Neutrophils # (Auto) 6.46 K/uL (1.4-6.5) Lymphocytes # (Auto) 0.39 K/uL (1.2-3.4) Monocytes # (Auto) 0.59 K/uL (0.11-0.59) Eosinophils # (Auto) 0.08 K/uL (0-0.5) Basophils # (Auto) 0.03 K/uL (0-0.2) RDW Standard Deviation 57.9 fL (36.4-46.3) RDW Coefficient of Variation 18.9 % (11.5-14.5) Immature Granulocyte % (Auto) 0.1 % Immature Granulocyte # (Auto) 0.01 K/uL (0.00-0.02) Anion Gap 10.0 mmol/L (3-11) Est Creatinine Clear Calc Drug Dose 4.7 ml/min Estimated GFR () 5.1 Estimated GFR (Non- 4.4 BUN/Creatinine Ratio 6.9 (10-20) Calcium Level 8.6 mg/dl (8.5-10.1) Magnesium Level 2.2 mg/dl (1.8-2.4) Total Bilirubin 1.4 mg/dl (0.2-1) Direct Bilirubin 0.4 mg/dl (0-0.2) Aspartate Amino Transf (AST/SGOT) 15 U/L (15-37) Alanine Aminotransferase (ALT/SGPT) 11 U/L (12-78) Alkaline Phosphatase 136 U/L (45-117) Troponin I < 0.015 ng/ml (0-0.045) Total Protein 6.1 gm/dl (6.4-8.2) Albumin 2.8 gm/dl (3.4-5.0) Lipase 185 U/L (73-393) Bedside Troponin I < 0.030 ng/ml (0-0.045) Medications Administered Medications (Trade) Dose Ordered Sig/Jacob Route Start Time Stop Time Status Last Admin Dose Admin Metoprolol Tartrate (Lopressor Iv) 5 mg NOW STAT IV 03/24/17 06:18 03/24/17 06:19 DC 03/24/17 06:29 5 MG ED Course Prior records/ancillary studies reviewed. Triage Nursing notes reviewed. Additional history obtained from family The patient's history was concerning for chest pain. Differential diagnosis: Etiologies such as cardiac ischemia, aortic dissection, pulmonary embolism, pneumonia, pneumothorax, musculoskeletal, infections, pericarditis, myocarditis , esophageal rupture, gastrointestinal, as well as others were entertained. Physical examination: As above. ER treatment provided: lopressor, nitro Patient has an aspirin allergy of GI upset On reassessment the patient felt better. Diagnostic interpretation by me: The electrocardiogram was normal sinus, normal axis, minimal ST elevation in the anteroseptal leads unchanged from prior, rate of 113. Impression sinus tachycardia with minimal ST elevation in the anteroseptal leads unchanged from prior per chart review and interpret by myself The labs revealed troponin, stable anemia per chart review. Elevated creatinine. Patient is due for dialysis today Imaging studies: Chest x-ray mild pulmonary congestion per my interpretation Consultation: A consultation was placed with the hospitalist, Dr Zapata. The case was discussed and diagnostics were reviewed. The patient was evaluated in the ER for further treatment. Exam and history seem consistent with chest pain with concerns for cardiac in etiology. Patient will be evaluated by medicine for possible admission. Unchanged EKG. By the evaluation outlined above emergent etiologies such as cardiac ischemia, aortic dissection, pulmonary embolism, pneumonia, pneumothorax, infections, pericarditis, myocarditis, gastrointestinal, as well as others were deemed relatively unlikely. The pt informed about the findings as listed above. All questions were answered and pleased with the treatment. Case reviewed with my attending. Medical Decision as above Impression Primary Impression: Precordial chest pain Additional Impression: Anemia Departure Information Dispostion Being Evaluated By Hospitalist Condition [facility]IR Referrals César Barnes M.D. (PCP) Patient Instructions My [facility] Problem Qualifiers
[2017-03-24 06:49] LABS: COMPLETE YES
--- NOTE | 2017-03-24 06:52 | EMERGENCY ROOM VISIT NOTE ---
ED Visit Note First contact with patient: 04:29 I have personally evaluated and examined this patient. I agree with assessment and plan of Yin Morrissey PA-C.
[2017-03-24] MEDS ORDERED: ONDANSETRON INJ 2 MG/ML 2 ML VIAL IV PRN (07:15)
[2017-03-24] MEDS ORDERED: NITROGLYCERIN 0.4 MG SL PER TAB CHARGE SL PRN (07:15)
[2017-03-24] MEDS ORDERED: ACETAMINOPHEN 325 MG TAB PO PRN (07:15)
[2017-03-24] MEDS ORDERED: MoRPHine SULFATE 2 MG/ML CARP IV PRN (07:15)
--- NOTE | 2017-03-24 08:35 | History and Physical ---
History & Physical Date & Time of Service: Mar 24, 2017 at 08:03 Chief Complaint: Fistula In Left Arm,Feels Funny Primary Care Physician: César Barnes M.D. History of Present Illness Source: patient, spouse, clinic records, hospital records 57 yo F presents today with chest and L arm discomfort since last night. She reports sleeping (not on this arm) and felt this pain come on. The pain is described as strong. She reports numbness in her fingers and states that her chest feels funny with ?palpitations. She reports a productive cough more over the last 2 days, but has been coughing since prior to her brochoscopy recently performed as an outpatient. She states she has mucous and blood coming up on occasion. She denies any fevers or chills but has chronic hot flashes. ROS also reveals some nausea without vomiting, no blood per rectum, +ALEXANDER in her R eye that is intermittent. She denies dysuria or UTI symptoms. She denies weight gain or swelling but does have a h/o cardiomyopathy with orthopnea and PND. She has a h/o LHC with nonobstructive CAD. Past Medical/Surgical History Medical Problems: (1) Anemia of chronic renal failure Status: Chronic (2) C. difficile colitis Status: Resolved (3) CAD (coronary artery disease) Permanent Comment: cath 12/2013 - non obstructive disease Status: Chronic (4) Carcinoma of breast Status: Chronic (5) Chronic respiratory failure Status: Chronic (6) COPD (chronic obstructive pulmonary disease) Status: Chronic (7) Diffuse pulmonary alveolar hemorrhage Status: Resolved (8) Dyslipidemia Status: Chronic (9) ESRD (end stage renal disease) on dialysis Status: Chronic (10) Essential hypertension Status: Chronic (11) Gastroesophageal reflux disease Status: Chronic (12) Gastroparesis Status: Chronic (13) History of aspergillosis Status: Chronic (14) History of interstitial lung disease Status: Chronic (15) Hypothyroidism Status: Chronic (16) Nodular goiter Status: Chronic (17) Non-ischemic cardiomyopathy Permanent Comment: echo 06/14/16- Ejection Fraction = 50-55%. No regional wall motion abnormalities noted. There is moderate mitral regurgitation. Grade I diastolic dysfunction, (abnormal relaxation pattern). Status: Chronic (18) Nonobstructive coronary artery disease Permanent Comment: nonobstructive CAD by cardiac catheterization 12/2013 Status: Chronic (19) Peripheral vascular disease Status: Chronic (20) s/p AV fistula Status: Chronic (21) Salmonella bacteremia Status: Resolved (22) Thrombocytopenia Status: Chronic Surgical Problems: (1) H/O mastectomy Status: Chronic (2) H/O partial thyroidectomy Status: Chronic Family History CVA FH: breast cancer MOTHER Social History Smoking Status: Former Smoker Smokeless Tobacco Use: No Alcohol Use: none Drug Use: none Marital Status: Housing status: lives with significant other Occupational Status: retired Immunizations History of Influenza Vaccine: Yes Influenza Vaccine Date: Jun 26, 2016 History of Tetanus Vaccine?: Yes Tetanus Immunization Date: Feb 05, 2007 History of Pneumococcal: Yes Pneumococcal Date: Oct 23, 2008 History of Hepatitis B Vaccine: Yes Multi-Drug Resistant Organisms History of MDRO: No Allergies Coded Allergies: Vancomycin (Verified Allergy, Intermediate, RASH-ELISA SYNDROME, 03/24/17) Atropine (Verified Allergy, Unknown, "BREATHING PROBLEMS", 03/24/17) Dipyridamole (Verified Allergy, Unknown, "BAD RXN", 03/24/17) PT STATES SHE BECOME ILL, AND HAD LOST THE NEXT TWO DAYS FAR MEMORY, HALLUCINATIONS, COMBATIVE Naproxen (Verified Allergy, Unknown, facial edema, 03/24/17) Linezolid (Verified Adverse Reaction, Severe, Thrombocytopenia, 03/24/17) Previous chart review from 11/2013 to 12/2015 shows thrombocytopenia associated with administration of Zyvox Aspirin (Verified Adverse Reaction, Mild, STOMACH CRAMPS, 03/24/17) Home Medications Scheduled Amlodipine (Norvasc), 5 MG PO QAM Calcium Acetate (Phoslo 667 Mg), 1 CAP PO DAILY WITH MEALS Ferrous Sulfate (Ferrous Sulfate), 1 TAB PO BID Hydralazine HCl (Hydralazine HCl), 1 TAB PO TID Levothyroxine Sodium (Levothyroxine Sodium), 75 MCG PO QAM Multiple Vitamins W/ Minerals (Prorenal Qd), 1 TAB PO QAM Pantoprazole (Protonix), 20 MG PO QAM Simvastatin (Zocor), 20 MG PO QAM Scheduled PRN Albuterol Sulf (Albuterol Sulfate), 1 VIAL NEB Q6 PRN for Shortness of Breath Home O2 Therapy (Oxygen), 2 LITERS NA UD PRN for COPD Ondansetron Hcl (Zofran), 4 MG PO Q6 PRN for Nausea Review of Systems At least ten systems reviewed and negative except as indicated in HPI. Physical Exam Vital Signs Date Time Temp Pulse Resp B/P (MAP) Pulse Ox O2 Delivery O2 Flow Rate FiO2 03/24/17 07:23 73 20 173/91 96 Nasal Cannula 2.0 03/24/17 07:15 96 Nasal Cannula 2.0 03/24/17 06:38 96 20 191/89 96 Nasal Cannula 2.0 03/24/17 06:29 101 209/88 03/24/17 05:56 124 24 209/88 98 Nasal Cannula 2.0 03/24/17 05:14 96 Nasal Cannula 2.0 03/24/17 05:14 96 Nasal Cannula 2.0 03/24/17 04:39 107 03/24/17 04:20 36.4 112 20 186/76 93 Nasal Cannula 2.0 GEN: thin, frail, in no acute distress, alert and appropriate HEENT: NC/AT, PERRL, normal sclerae, MMM, tongue covered in a whitish substance CARDIO: tachy rate, 3/6 RJ heard at LUSB LUNGS: coarse rhonchi throughout ABD: soft, non-tender, non-distended, no rebound or guarding, +BS EXTREMITY: RP and DP palpable 2+ bilat, no LE swelling or edema, extremities are warm and well-perfused, fistula in LUE NEURO: CN 2-12 grossly intact, sensation intact throughout MUSC: 5/5 strength throughout, moves all extremities equally SKIN: warm and dry Diagnostics Laboratory Results 03/24/17 05:44 Red Blood Count 3.46, Mean Corpuscular Volume 83.8, Mean Corpuscular Hemoglobin 25.7, Mean Corpuscular Hemoglobin Concent 30.7, Mean Platelet Volume 9.2, Neutrophils (%) (Auto) 85.4, Lymphocytes (%) (Auto) 5.2, Monocytes (%) (Auto) 7.8, Eosinophils (%) (Auto) 1.1, Basophils (%) (Auto) 0.4, Neutrophils # (Auto) 6.46, Lymphocytes # (Auto) 0.39, Monocytes # (Auto) 0.59, Eosinophils # (Auto) 0.08, Basophils # (Auto) 0.03 03/24/17 05:44 Test 03/24/17 05:44 03/24/17 05:48 White Blood Count 7.56 K/uL (4.8-10.8) Red Blood Count 3.46 M/uL (4.2-5.4) Hemoglobin 8.9 g/dL (12.0-16.0) Hematocrit 29.0 % (37-47) Mean Corpuscular Volume 83.8 fL (80-100) Mean Corpuscular Hemoglobin 25.7 pg (25-34) Mean Corpuscular Hemoglobin Concent 30.7 g/dl (32-36) Platelet Count 105 K/uL (130-400) Mean Platelet Volume 9.2 fL (7.4-10.4) Neutrophils (%) (Auto) 85.4 % Lymphocytes (%) (Auto) 5.2 % Monocytes (%) (Auto) 7.8 % Eosinophils (%) (Auto) 1.1 % Basophils (%) (Auto) 0.4 % Neutrophils # (Auto) 6.46 K/uL (1.4-6.5) Lymphocytes # (Auto) 0.39 K/uL (1.2-3.4) Monocytes # (Auto) 0.59 K/uL (0.11-0.59) Eosinophils # (Auto) 0.08 K/uL (0-0.5) Basophils # (Auto) 0.03 K/uL (0-0.2) RDW Standard Deviation 57.9 fL (36.4-46.3) RDW Coefficient of Variation 18.9 % (11.5-14.5) Immature Granulocyte % (Auto) 0.1 % Immature Granulocyte # (Auto) 0.01 K/uL (0.00-0.02) Red Blood Cell Morphology Unremarkable Anion Gap 10.0 mmol/L (3-11) Est Creatinine Clear Calc Drug Dose 4.7 ml/min Estimated GFR () 5.1 Estimated GFR (Non- 4.4 BUN/Creatinine Ratio 6.9 (10-20) Calcium Level 8.6 mg/dl (8.5-10.1) Magnesium Level 2.2 mg/dl (1.8-2.4) Total Bilirubin 1.4 mg/dl (0.2-1) Direct Bilirubin 0.4 mg/dl (0-0.2) Aspartate Amino Transf (AST/SGOT) 15 U/L (15-37) Alanine Aminotransferase (ALT/SGPT) 11 U/L (12-78) Alkaline Phosphatase 136 U/L (45-117) Troponin I < 0.015 ng/ml (0-0.045) Total Protein 6.1 gm/dl (6.4-8.2) Albumin 2.8 gm/dl (3.4-5.0) Lipase 185 U/L (73-393) Bedside Troponin I < 0.030 ng/ml (0-0.045) Date/Time Source Procedure Growth Status 03/24/17 08:19 Blood Blood Culture Pending Porfirio Batch Results Past 24 Hours Test 03/24/17 05:44 03/24/17 05:48 Range/Units White Blood Count 7.56 4.8-10.8 K/uL Red Blood Count 3.46 4.2-5.4 M/uL Hemoglobin 8.9 12.0-16.0 g/dL Hematocrit 29.0 37-47 % Mean Corpuscular Volume 83.8 80-100 fL Mean Corpuscular Hemoglobin 25.7 25-34 pg Mean Corpuscular Hemoglobin Concent 30.7 32-36 g/dl Platelet Count 105 130-400 K/uL Mean Platelet Volume 9.2 7.4-10.4 fL Neutrophils (%) (Auto) 85.4 % Lymphocytes (%) (Auto) 5.2 % Monocytes (%) (Auto) 7.8 % Eosinophils (%) (Auto) 1.1 % Basophils (%) (Auto) 0.4 % Neutrophils # (Auto) 6.46 1.4-6.5 K/uL Lymphocytes # (Auto) 0.39 1.2-3.4 K/uL Monocytes # (Auto) 0.59 0.11-0.59 K/uL Eosinophils # (Auto) 0.08 0-0.5 K/uL Basophils # (Auto) 0.03 0-0.2 K/uL RDW Standard Deviation 57.9 36.4-46.3 fL RDW Coefficient of Variation 18.9 11.5-14.5 % Immature Granulocyte % (Auto) 0.1 % Immature Granulocyte # (Auto) 0.01 0.00-0.02 K/uL Red Blood Cell Morphology Unremarkable Sodium Level 140 136-145 mmol/L Potassium Level 4.9 3.5-5.1 mmol/L Chloride Level 107 98-107 mmol/L Carbon Dioxide Level 23 21-32 mmol/L Anion Gap 10.0 3-11 mmol/L Blood Urea Nitrogen 61 7-18 mg/dl Creatinine 8.90 0.60-1.20 mg/dl Est Creatinine Clear Calc Drug Dose 4.7 ml/min Estimated GFR () 5.1 Estimated GFR (Non- 4.4 BUN/Creatinine Ratio 6.9 10-20 Random Glucose 114 70-99 mg/dl Calcium Level 8.6 8.5-10.1 mg/dl Magnesium Level 2.2 1.8-2.4 mg/dl Total Bilirubin 1.4 0.2-1 mg/dl Direct Bilirubin 0.4 0-0.2 mg/dl Aspartate Amino Transf (AST/SGOT) 15 15-37 U/L Alanine Aminotransferase (ALT/SGPT) 11 12-78 U/L Alkaline Phosphatase 136 45-117 U/L Troponin I < 0.015 0-0.045 ng/ml Total Protein 6.1 6.4-8.2 gm/dl Albumin 2.8 3.4-5.0 gm/dl Lipase 185 73-393 U/L Bedside Troponin I < 0.030 0-0.045 ng/ml Diagnostic Radiology CHEST ONE VIEW PORTABLE HISTORY: 57 years Female CHEST PAIN COMPARISON: 03/06/2017 chest radiograph, chest CT 01/28/2017 TECHNIQUE: Portable upright AP view of the chest FINDINGS: Cardiac silhouette is again enlarged. There is atherosclerosis of the aorta. There is pulmonary vascular congestion with background reticulation and right greater than left bibasilar alveolar opacities with blunting of the costophrenic angles. The bibasilar opacities have slightly progressed from comparison and become more confluent. The masslike opacity seen on the prior study is not as apparent however is again seen, 1.9 x 3.5 cm likely correlating with focal groundglass opacity on comparison chest CT which measured 2.7 x 2.4 cm. Stent graft of the left axillary region is seen. The bones appear grossly intact. IMPRESSION: 1. Cardiomegaly with mild pulmonary edema pattern and small bilateral pleural effusions. 2. Bibasilar alveolar opacities may reflect atelectasis or pneumonia. 3. Focal masslike opacity of the right lung base likely correlates with 2.7 cm groundglass opacity seen on comparison chest CT dated 01/28/2017. This appears slightly smaller than comparison chest radiograph. Close follow-up is needed. EKG SR 115 Impression Assessment and Plan 57 yoF with left chest and arm pain x 1 day 1. Atypical chest pain-h/o nonobstructive CAD with increased risk of CAD 2/2 ESRD. Initial trop and EKG are negative. Will trend serial cardiac enzymes. Consider cardiac consult for risk stratification as h/o CAD changes pretest probability of stress test. Allergic to ASA so this was not given. With tachycardia will start some metoprolol PO and will give one dose of statin for plaque stabilization. 2. [id number] R lung mass and is s/p bronchoscopy a couple of weeks ago. Now with productive cough for two days and bilateral infiltrates on CXR and requiring constant oxygen, more than usual. At higher risk for pseudomonas/ MRSA with recent instrumentation and known structural lung disease. Pt is allergic to Vanco and Linezolid--started Zosyn and Levaquin empirically. Consulted pulm. Blood and sputum cultures pending 3. Hypertension-SBP>200 improved somewhat with Lopressor IV and Nitro given in the ER. Pt is very anxious-appearing which may be contributing. Cont home regimen for now consisting of hydralazine 25mg TID. 4. Thrush-on tongue, long-standing. May need fluconazole but will start with Nystatin 5. Diarrhea-unable to tell if acute vs chronic-patient is a poor historian. She does have a h/o C-diff and reports 2 "or more" BMs daily. Stool studies ordered. 6. ESRD-on HD , , Thu routine. Nephro consulted for inpatient HD while admitted. 7. Anemia of ESRD-per Nephro DVT proph-heparin Full Code Dispo-to telemetry Yanet Zapata DO [facility] Level of Care Telemetry Advanced Directives Existing Living Will: No Existing Power of Pillar Worker: No Resuscitation Status FULL RESUSCITATION VTE Prophylaxis VTE Risk Assessment Done? Y/N: Yes Risk Level: Moderate Given or contraindicated: Unfractionated heparin SQ
[2017-03-24] MEDS ORDERED: SIMVASTATIN 20 MG TAB PO SCH (09:00)
[2017-03-24] MEDS ORDERED: ATORVASTATIN 40 MG TAB PO ONE (09:30)
[2017-03-24] MEDS ORDERED: PIPERACILL/TAZOBAC IV 3.375 GM in DEXTROSE 5% 100ML IV ONE (09:30)
[2017-03-24] MEDS: PANTOprazole SOD 40 MG TAB PO SCH (09:41)
[2017-03-24] MEDS: CEROVITE ADV FORMULA TAB PO SCH (09:41)
[2017-03-24] MEDS: AMLODIPINE BESYLATE 5 MG TAB PO SCH (09:42)
[2017-03-24] MEDS: FERROUS SULFATE 325 MG TAB PO SCH ×2 (09:42→21:11)
[2017-03-24] MEDS: METOPROLOL TARTRATE 25 MG TAB PO SCH ×2 (09:42→21:11)
[2017-03-24] MEDS: LEVOTHYROXINE 75 MCG TAB PO SCH (09:43)
[2017-03-24] MEDS ORDERED: PIPERACILL/TAZOBAC CONSULT ACTIVE PRN (09:45)
[2017-03-24] MEDS ORDERED: LEVOFLOXACIN CONSULT ACTIVE PRN (09:45)
[2017-03-24] MEDS: NYSTATIN SUSP 500,000 U/5 ML UDC PO SCH ×4 (09:48→21:10)
[2017-03-24] MEDS ORDERED: EPOETIN ALFA 10,000 UNITS/ML VIAL IV. SCH (10:00)
[2017-03-24] MEDS ORDERED: LEVOFLOXACIN 750MG / D5W IV SCH (10:30)
[2017-03-24] MEDS: CALCIUM ACETATE 667MG GELCAP PO SCH ×2 (11:30→17:09)
[2017-03-24] MEDS: ALBUT/IPRATROP 3MG/0.5MG NEB 3 ML VIAL INH SCH ×3 (11:35→19:00)
[2017-03-24] MEDS: HEPARIN SOD 5000 UNIT/0.5 ML CARP SQ SCH ×2 (14:00→21:10)
--- NOTE | 2017-03-24 15:05 | Nephrology Consultation ---
Nephrology Consultation Date of Consultation: Mar 24, 2017. Attending Physician: amita elaine Reason for Consultation: ESRD History of Present Illness Patient is a 57 year old female with ESRD on t/h/s at [facility] with last dialysis treatment as outpt on thursday. last night, pt started having pain in her hand radiating to her chest. troponins negative. has some sob. had a nebulizer treatment and currently placed on levaquin. underwent dialysis today as inpt and was able to take off 1400cc. continues to have some pain in her left hand but overall pain is much better compared to last night. still with some difficulty with breathing. productive cough for past two days. no fevers or chills. Past Medical/Surgical History Medical Problems: (1) Anemia Status: Acute (2) CHF (congestive heart failure) Status: Acute (3) CHF exacerbation Status: Acute (4) COPD exacerbation Status: Acute (5) COPD exacerbation Status: Acute (6) End stage renal disease Status: Acute (7) End stage renal disease on dialysis Status: Acute (8) Hematoma of arm Status: Acute (9) Hemoptysis Status: Acute (10) History of interstitial lung disease Status: Chronic (11) Hyperkalemia Status: Acute (12) Hypoxia Status: Acute (13) Hypoxia Status: Acute (14) Leukocytosis Status: Acute (15) Non-ST elevation UT (NSTEMI) Status: Acute (16) Precordial chest pain Status: Acute (17) Pulmonary edema Status: Acute (18) Renal failure Status: Acute (19) Respiratory distress Status: Acute (20) Sepsis Status: Acute (21) SOB (shortness of breath) Status: Acute (22) SOB (shortness of breath) Status: Acute (23) Tachycardia Status: Acute ESRD CAD COPD Diffuse pulmonary alveolar hemorrhage Hyperlipidemia GERD Hypothyroidism HTN Thrombocytopenia hx of aspergilossis Fistula placement Family History CVA FH: breast cancer MOTHER Social History Smoking Status: Former Smoker Alcohol Use: none Drug Use: none Marital Status: Housing Status: lives with family Occupation Status: retired Allergies Coded Allergies: Vancomycin (Verified Allergy, Intermediate, RASH-ELISA SYNDROME, 03/24/17) Atropine (Verified Allergy, Unknown, "BREATHING PROBLEMS", 03/24/17) Dipyridamole (Verified Allergy, Unknown, "BAD RXN", 03/24/17) PT STATES SHE BECOME ILL, AND HAD LOST THE NEXT TWO DAYS FAR MEMORY, HALLUCINATIONS, COMBATIVE Naproxen (Verified Allergy, Unknown, facial edema, 03/24/17) Linezolid (Verified Adverse Reaction, Severe, Thrombocytopenia, 03/24/17) Previous chart review from 11/2013 to 12/2015 shows thrombocytopenia associated with administration of Zyvox Aspirin (Verified Adverse Reaction, Mild, STOMACH CRAMPS, 03/24/17) Medications Current Inpatient Medications Medications (Trade) Dose Ordered Sig/Jacob Route Start Time Stop Time Status Last Admin Dose Admin Heparin Sodium (Porcine) (Heparin Sq 5000 Unit/0.5ml) 5,000 unit Q8 SQ 03/24/17 14:00 04/23/17 13:59 Acetaminophen (Tylenol Tab) 650 mg Q4H PRN PO 03/24/17 07:15 04/23/17 07:14 Ondansetron HCl (Zofran Inj) 4 mg Q6H PRN IV 03/24/17 07:15 04/23/17 07:14 Nitroglycerin (Nitrostat Tab) 0.4 mg UD PRN SL 03/24/17 07:15 04/23/17 07:14 Morphine Sulfate (MoRPHine SULFATE INJ) 2 mg Q30M PRN IV 03/24/17 07:15 04/07/17 07:14 Piperacillin Sod/ Tazobactam Sod (Consult) 1 ea UD PRN N/A 03/24/17 09:45 04/23/17 09:44 Amlodipine Besylate (Norvasc Tab) 5 mg QAM PO 03/24/17 09:00 04/23/17 08:59 03/24/17 09:42 5 MG Calcium Acetate (Phoslo Cap) 667 mg TIDM PO 03/24/17 11:30 04/23/17 11:59 Ferrous Sulfate (Feosol Tab) 325 mg BID PO 03/24/17 09:00 04/23/17 08:59 03/24/17 09:42 325 MG Hydralazine HCl (Apresoline Tab) 25 mg TID PO 03/24/17 09:00 04/23/17 08:59 03/24/17 14:31 25 MG Levothyroxine Sodium (Synthroid Tab) 75 mcg DAILYBB PO 03/24/17 09:30 04/23/17 09:29 7/18/17 09:43 75 MCG Multivitamins/ Minerals (Multivitamin W/ Minerals Tab) 1 tab QAM PO 03/24/17 09:00 04/23/17 08:59 03/24/17 09:41 1 TAB Pantoprazole Sodium (Protonix Tab) 40 mg QAM PO 03/24/17 09:00 04/23/17 08:59 03/24/17 09:41 40 MG Albuterol/ Ipratropium (Duoneb) 3 ml QIDR INH 03/24/17 12:00 04/23/17 11:59 03/24/17 11:35 3 ML Nystatin (Mycostatin Susp) 5 ml QID PO 03/24/17 09:00 04/03/17 08:59 03/24/17 14:31 5 ML Metoprolol Tartrate (Lopressor Tab) 12.5 mg BID PO 03/24/17 09:00 04/23/17 08:59 03/24/17 09:42 12.5 MG Simvastatin (Zocor Tab) 20 mg QAM PO 03/25/17 09:00 04/23/17 08:59 Epoetin Rc (Procrit Inj) 10,000 units TODAY@1000 IV. 03/24/17 10:00 03/24/17 23:59 03/24/17 13:05 10,000 UNITS Levofloxacin (Consult) 1 ea UD PRN N/A 03/24/17 09:45 04/23/17 09:44 Levofloxacin 750 mg/Prmx 150 ml @ 100 mls/hr TODAY@1030 IV 03/24/17 10:30 03/24/17 16:00 03/24/17 14:31 100 MLS/HR Levofloxacin 500 mg/Prmx 100 ml @ 100 mls/hr Q48H IV 03/26/17 10:00 04/02/17 09:59 Home Meds and Scripts Medications Dose Route/Sig Max Daily Dose Days Date Category Albuterol Sulfate (Albuterol Sulf) 2.5 Mg/0.5 Ml Nebu 1 Vial NEB Q6 PRN 03/24/17 Reported Prorenal Qd (Multiple Vitamins W/ Minerals) 1 Cap Cap 1 Tab PO QAM 02/25/17 Reported Phoslo 667 Mg (Calcium Acetate) 667 Mg Cap 1 Cap PO DAILY WITH MEALS 02/25/17 Reported Hydralazine HCl 25 Mg Tab 1 Tab PO TID 02/25/17 Reported Protonix (Pantoprazole Sodium) 20 Mg Tab 20 Mg PO QAM 10/11/16 Reported Zofran (Ondansetron HCl) 4 Mg Tab 4 Mg PO Q6 PRN 10/11/16 Reported Ferrous Sulfate 325 Mg Tab 1 Tab PO BID 10/11/16 Reported Oxygen Gas 2 Liters NA UD PRN 09/23/16 Reported Norvasc (Amlodipine Besylate) 5 Mg Tab 5 Mg PO QAM 07/21/16 Reported Levothyroxine Sodium 75 Mcg Tab 75 Mcg PO QAM 08/31/13 Reported Zocor (Simvastatin) 20 Mg Tab 20 Mg PO QAM 01/14/10 Reported Review of Systems Constitutional: + fatigue, No fever, No chills Eyes: No worsening of vision ENT: No trouble swallowing Respiratory: + cough, + shortness of breath Cardiac: No edema Abdomen: + nausea, No vomiting Female : No dysuria Endo: + fatigue Skin: No rash all other review of systems otherwise negative Physical Exam Date Time Temp Pulse Resp B/P (MAP) Pulse Ox O2 Delivery O2 Flow Rate FiO2 03/24/17 13:45 67 107/48 03/24/17 13:30 68 107/54 03/24/17 13:15 69 111/53 03/24/17 13:06 68 117/59 03/24/17 13:00 68 96/51 03/24/17 12:56 67 92/48 03/24/17 12:45 68 118/57 03/24/17 12:37 68 96/52 03/24/17 12:30 70 117/57 03/24/17 12:15 69 112/49 03/24/17 12:00 71 121/56 03/24/17 11:45 71 132/66 03/24/17 11:36 62 14 96 Nasal Cannula 2.0 03/24/17 11:30 74 132/66 03/24/17 11:24 Nasal Cannula 2.0 03/24/17 11:15 73 159/71 03/24/17 11:00 78 162/67 03/24/17 10:44 36.5 77 169/68 (101) 03/24/17 09:50 188/98 (128) 03/24/17 08:20 36.6 88 20 177/72 (107) 98 Nasal Cannula 2.0 03/24/17 07:59 80 20 178/80 98 Nasal Cannula 2.0 03/24/17 07:23 73 20 173/91 96 Nasal Cannula 2.0 03/24/17 07:15 96 Nasal Cannula 2.0 03/24/17 06:38 96 20 191/89 96 Nasal Cannula 2.0 03/24/17 06:29 101 209/88 03/24/17 05:56 124 24 209/88 98 Nasal Cannula 2.0 03/24/17 05:14 96 Nasal Cannula 2.0 03/24/17 05:14 96 Nasal Cannula 2.0 03/24/17 04:39 107 03/24/17 04:20 36.4 112 20 186/76 93 Nasal Cannula 2.0 24-Hour Column 03/25/17 08:00 Intake Total 270 ml Balance 270 ml General Appearance: no apparent distress Eyes: normal inspection ENT: hearing grossly normal Neck: supple Respiratory/Chest: + decreased breath sounds, + crackles Cardiovascular: regular rate, rhythm Abdomen: normal bowel sounds, non tender, soft Extremities: no pedal edema Neurologic/Psych: alert, normal mood/affect, oriented x 3 Skin: normal color Diagnostics Last 24 Hours Test 03/24/17 05:44 03/24/17 05:48 03/24/17 12:00 White Blood Count 7.56 K/uL Red Blood Count 3.46 M/uL Hemoglobin 8.9 g/dL Hematocrit 29.0 % Mean Corpuscular Volume 83.8 fL Mean Corpuscular Hemoglobin 25.7 pg Mean Corpuscular Hemoglobin Concent 30.7 g/dl Platelet Count 105 K/uL Mean Platelet Volume 9.2 fL Neutrophils (%) (Auto) 85.4 % Lymphocytes (%) (Auto) 5.2 % Monocytes (%) (Auto) 7.8 % Eosinophils (%) (Auto) 1.1 % Basophils (%) (Auto) 0.4 % Neutrophils # (Auto) 6.46 K/uL Lymphocytes # (Auto) 0.39 K/uL Monocytes # (Auto) 0.59 K/uL Eosinophils # (Auto) 0.08 K/uL Basophils # (Auto) 0.03 K/uL RDW Standard Deviation 57.9 fL RDW Coefficient of Variation 18.9 % Immature Granulocyte % (Auto) 0.1 % Immature Granulocyte # (Auto) 0.01 K/uL Red Blood Cell Morphology Unremarkable Sodium Level 140 mmol/L Potassium Level 4.9 mmol/L Chloride Level 107 mmol/L Carbon Dioxide Level 23 mmol/L Anion Gap 10.0 mmol/L Blood Urea Nitrogen 61 mg/dl Creatinine 8.90 mg/dl Est Creatinine Clear Calc Drug Dose 4.7 ml/min Estimated GFR () 5.1 Estimated GFR (Non- 4.4 BUN/Creatinine Ratio 6.9 Random Glucose 114 mg/dl Calcium Level 8.6 mg/dl Magnesium Level 2.2 mg/dl Total Bilirubin 1.4 mg/dl Direct Bilirubin 0.4 mg/dl Aspartate Amino Transf (AST/SGOT) 15 U/L Alanine Aminotransferase (ALT/SGPT) 11 U/L Alkaline Phosphatase 136 U/L Troponin I < 0.015 ng/ml Total Protein 6.1 gm/dl Albumin 2.8 gm/dl Lipase 185 U/L Bedside Troponin I < 0.030 ng/ml Creatine Kinase MB Ratio Assessment & Plan ESRD-pt had dialysis today and took off 1.4 liters of fluid today. had issues with low blood pressures on dialysis. pt with crackles at bases and sounds fluid overloaded. would like to attempt dialysis again tomorrow with albumin to help improve fluid removal rate. chest xray shows more of a pneumonia as suppose to chf but will continue to diurese to help optimize lungs. Anemia of renal failure-hg of 8.9 and on procrit. goal hg of 10 to 11. Albumin 2.8-continue to encourage protein. may be dilutionally low since appears to be fluid overloaded.
[2017-03-24] MEDS: PIPERACILL/TAZOBAC IV 3.375 GM in DEXTROSE 5% 100ML IV SCH (17:09)
[2017-03-24 17:42] LABS: CKMB/CK RATIO 5.2 (0-3.0)
--- NOTE | 2017-03-24 18:19 | Pulmonary Consultation ---
History General Date of Service: Mar 24, 2017. Stated Complaint: Atypical Chest Pain HPI The patient is a 57 year old female who presents to [facility] with complaints of Atypical Chest Pain. The patient's primary care provider is César Barnes M.D.. Mrs. Grant is a 57-year-old female who presents with complaints of left-sided chest pain as well as left arm discomfort that started 1 day prior to admission. She describes pain as a funny feeling. She denies any chest pressure or constant chest pain, she is unsure if she was having palpitations. She also complained of left hand numbness and tingling that started in her fistula site. She states that feeling was precipitated by sleeping on arm. She denies any fevers, chills, but reports worsening dyspnea on exertion, productive cough with whitish sputum and intermittent hemoptysis. She states the blood is not enough to quantify but occasionally has blood streaked sputum. Her pulmonary history is significant for COPD on home oxygen, secondary to pulmonary vasculitis, and interstitial lung disease. She has had aggressive workup with surgical lung biopsies, multiple bronchoscopies for diffuse alveolar hemorrhage however no etiology has been confirmed. Immunological assay sent on 03/27/2006 was positive for lupus anticoagulant, Juanjose viper venom, anticardiolipin IgM antibody, and phosphatidylserine IgG antibodies. ANCA, GELA, DS DNA were negative. She has been empirically treated with high- dose steroids in the past however became bacteremic with salmonella and admitted to ICU for hypoxic respiratory failure in June 2016. 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 She is currently being followed by Dr. Nguyen, CT surgery and Dr. Hurt pulmonary as outpatient.Currently uses Anoro Ellipta 620-25 inhaled aerosol powder. Respiratory cultures Bronchial washings from 06/09/2014 showed saprophyticus fungus Bronchial washings from 06/08/2015 showed no growth Mediastinal lymph node biopsy on 02/22/2016 showed Peptostreptococcus Bronchial wash from 06/17/2016 showed no significant growth sputum culture from 07/05/2016 showed Aspergillus fumigatus In the ED, her initial vital signs were pulse of 73, respiratory rate of 20, blood pressure 173/91, and saturating 96% on 2 L nasal cannula. She was admitted to rule out ACS and pneumonia. She was empirically started on linezolid, Zosyn and Levaquin. At the time of my evaluation, she was complaining of dyspnea and requesting nebulizer this morning. At the time of this note she is status post removal around 1.4 L via hemodialysis. Review of Systems Constitutional: reports: as stated in HPI, malaise, denies: no symptoms Eyes: reports: no symptoms ENT: reports: no symptoms Cardiovascular: reports: chest pain Respiratory: reports: as stated in HPI, cough, orthopnea, shortness of breath, sputum production, PND, hemoptysis, denies: cyanosis, NIEVES Gastrointestinal: reports: nausea Genitourinary - Female: reports: no symptoms Musculoskeletal: reports: no symptoms Integumentary: reports: no symptoms Neurologic: reports: no symptoms Psychiatric: reports: no symptoms Endocrine: no symptoms Hematologic / Lymphatic: no symptoms, as stated in HPI, anemia Allergic / Immunologic: no symptoms Past Medical History Past Medical History: Pulmonary nodules Pulmonary vasculitis Diffuse alveolar hemorrhage Interstitial lung disease Mediastinal lymphadenopathy Coronary artery disease Hemoptysis End stage kidney disease and hemodialysis Anemia of chronic disease Essential hypertension GERD Hypothyroidism Peripheral vascular disease History of C. difficile colitis splenomegaly Adenocarcinoma of the breast History of pneumonia Past Surgical History: AV fistula creation Navigational bronchoscopy Left breast partial mastectomy Thyroid hemithyroidectomy, right lobe cardiac catheterization Family History CVA FH: breast cancer MOTHER Parent: Cancer, Vascular Disease Social History Former smokerone pack per day for 30 years. No occupational exposures Denies alcohol use or illicit drug use Currently and lives with . Hx Tobacco Use In Past Year?: No (QUIT 2011, 1.5 PPD, SMOKED FOR 20 +YRS ) Smoking Status: Former Smoker Alcohol: no current use Drug Use: none Marital status: Housing status: lives with significant other Occupational Status: retired Immunizations History of Influenza Vaccine: Yes Influenza Vaccine Date: Jun 26, 2016 History of Tetanus Vaccine?: Yes Tetanus Immunization Date: Feb 05, 2007 History of Pneumococcal: Yes Pneumococcal Date: Oct 23, 2008 History of Hepatitis B Vaccine: Yes History of MDRO History of MDRO: No Allergies Coded Allergies: Vancomycin (Verified Allergy, Intermediate, RASH-ELISA SYNDROME, 03/24/17) Atropine (Verified Allergy, Unknown, "BREATHING PROBLEMS", 03/24/17) Dipyridamole (Verified Allergy, Unknown, "BAD RXN", 03/24/17) PT STATES SHE BECOME ILL, AND HAD LOST THE NEXT TWO DAYS FAR MEMORY, HALLUCINATIONS, COMBATIVE Naproxen (Verified Allergy, Unknown, facial edema, 03/24/17) Linezolid (Verified Adverse Reaction, Severe, Thrombocytopenia, 03/24/17) Previous chart review from 11/2013 to 12/2015 shows thrombocytopenia associated with administration of Zyvox Aspirin (Verified Adverse Reaction, Mild, STOMACH CRAMPS, 03/24/17) Current Medications Reported Home Medications Medications Dose Route/Sig Max Daily Dose Days Date Category Albuterol Sulfate (Albuterol Sulf) 2.5 Mg/0.5 Ml Nebu 1 Vial NEB Q6 PRN 03/24/17 Reported Prorenal Qd (Multiple Vitamins W/ Minerals) 1 Cap Cap 1 Tab PO QAM 02/25/17 Reported Phoslo 667 Mg (Calcium Acetate) 667 Mg Cap 1 Cap PO DAILY WITH MEALS 02/25/17 Reported Hydralazine HCl 25 Mg Tab 1 Tab PO TID 02/25/17 Reported Protonix (Pantoprazole Sodium) 20 Mg Tab 20 Mg PO QAM 10/11/16 Reported Zofran (Ondansetron HCl) 4 Mg Tab 4 Mg PO Q6 PRN 10/11/16 Reported Ferrous Sulfate 325 Mg Tab 1 Tab PO BID 10/11/16 Reported Oxygen Gas 2 Liters NA UD PRN 09/23/16 Reported Norvasc (Amlodipine Besylate) 5 Mg Tab 5 Mg PO QAM 07/21/16 Reported Levothyroxine Sodium 75 Mcg Tab 75 Mcg PO QAM 08/31/13 Reported Zocor (Simvastatin) 20 Mg Tab 20 Mg PO QAM 01/14/10 Reported Physical Physical Exam Vital Signs: Date Time Temp Pulse Resp B/P (MAP) Pulse Ox O2 Delivery O2 Flow Rate FiO2 03/24/17 16:32 36.4 77 22 146/61 (89) 97 Nasal Cannula 2.0 03/24/17 16:00 Nasal Cannula 2.0 03/24/17 15:16 75 14 93 Nasal Cannula 2.0 03/24/17 14:00 36.6 67 128/57 (80) 03/24/17 14:00 67 128/57 03/24/17 13:45 67 107/48 03/24/17 13:30 68 107/54 03/24/17 13:15 69 111/53 7/18/17 13:06 68 117/59 03/24/17 13:00 68 96/51 03/24/17 12:56 67 92/48 03/24/17 12:45 68 118/57 03/24/17 12:37 68 96/52 03/24/17 12:30 70 117/57 03/24/17 12:15 69 112/49 03/24/17 12:00 71 121/56 03/24/17 11:45 71 132/66 03/24/17 11:36 62 14 96 Nasal Cannula 2.0 03/24/17 11:30 74 132/66 03/24/17 11:24 Nasal Cannula 2.0 03/24/17 11:15 73 159/71 03/24/17 11:00 78 162/67 03/24/17 10:44 36.5 77 169/68 (101) 03/24/17 09:50 188/98 (128) 03/24/17 08:20 36.6 88 20 177/72 (107) 98 Nasal Cannula 2.0 03/24/17 07:59 80 20 178/80 98 Nasal Cannula 2.0 03/24/17 07:23 73 20 173/91 96 Nasal Cannula 2.0 03/24/17 07:15 96 Nasal Cannula 2.0 03/24/17 06:38 96 20 191/89 96 Nasal Cannula 2.0 03/24/17 06:29 101 209/88 03/24/17 05:56 124 24 209/88 98 Nasal Cannula 2.0 03/24/17 05:14 96 Nasal Cannula 2.0 03/24/17 05:14 96 Nasal Cannula 2.0 03/24/17 04:39 107 03/24/17 04:20 36.4 112 20 186/76 93 Nasal Cannula 2.0 General Appearance: thin Head: NORMOCEPHALIC, ATRAUMATIC Eyes: PERRLA, NO DISCHARGE, EOMI, SCLERAE NORMAL ENT: other (white plaques on tongue) Neck: NORMAL RANGE OF MOTION, NO TENDERNESS, TRACHEA MIDLINE, SUPPLE Respiratory: NO RESPIRATORY DISTRESS, rales Cardiovasular: REGULAR RATE/RHYTHM, NORMAL S1S2 Abdomen: NON TENDER, NORMAL BOWEL SOUNDS, NO REBOUND, NO MASSES, NO GUARDING Upper Extremities: NO EDEMA, other (left upper extremity fistula has a palpable thrill) Lower Extremities: NO EDEMA, other (no cyanosis, no clubbing) Neuro: ALERT, ORIENTED x 3 Psychiatric: NORMAL AFFECT, NO SUICIDAL IDEATION Diagnostics Labs Results Past 24 Hours Test 03/24/17 05:44 03/24/17 05:48 03/24/17 16:51 Range/Units White Blood Count 7.56 4.8-10.8 K/uL Red Blood Count 3.46 4.2-5.4 M/uL Hemoglobin 8.9 12.0-16.0 g/dL Hematocrit 29.0 37-47 % Mean Corpuscular Volume 83.8 80-100 fL Mean Corpuscular Hemoglobin 25.7 25-34 pg Mean Corpuscular Hemoglobin Concent 30.7 32-36 g/dl Platelet Count 105 130-400 K/uL Mean Platelet Volume 9.2 7.4-10.4 fL Neutrophils (%) (Auto) 85.4 % Lymphocytes (%) (Auto) 5.2 % Monocytes (%) (Auto) 7.8 % Eosinophils (%) (Auto) 1.1 % Basophils (%) (Auto) 0.4 % Neutrophils # (Auto) 6.46 1.4-6.5 K/uL Lymphocytes # (Auto) 0.39 1.2-3.4 K/uL Monocytes # (Auto) 0.59 0.11-0.59 K/uL Eosinophils # (Auto) 0.08 0-0.5 K/uL Basophils # (Auto) 0.03 0-0.2 K/uL RDW Standard Deviation 57.9 36.4-46.3 fL RDW Coefficient of Variation 18.9 11.5-14.5 % Immature Granulocyte % (Auto) 0.1 % Immature Granulocyte # (Auto) 0.01 0.00-0.02 K/uL Red Blood Cell Morphology Unremarkable Sodium Level 140 136-145 mmol/L Potassium Level 4.9 3.5-5.1 mmol/L Chloride Level 107 98-107 mmol/L Carbon Dioxide Level 23 21-32 mmol/L Anion Gap 10.0 3-11 mmol/L Blood Urea Nitrogen 61 7-18 mg/dl Creatinine 8.90 0.60-1.20 mg/dl Est Creatinine Clear Calc Drug Dose 4.7 ml/min Estimated GFR () 5.1 Estimated GFR (Non- 4.4 BUN/Creatinine Ratio 6.9 10-20 Random Glucose 114 70-99 mg/dl Calcium Level 8.6 8.5-10.1 mg/dl Magnesium Level 2.2 1.8-2.4 mg/dl Total Bilirubin 1.4 0.2-1 mg/dl Direct Bilirubin 0.4 0-0.2 mg/dl Aspartate Amino Transf (AST/SGOT) 15 15-37 U/L Alanine Aminotransferase (ALT/SGPT) 11 12-78 U/L Alkaline Phosphatase 136 45-117 U/L Troponin I < 0.015 0.021 0-0.045 ng/ml Total Protein 6.1 6.4-8.2 gm/dl Albumin 2.8 3.4-5.0 gm/dl Lipase 185 73-393 U/L Bedside Troponin I < 0.030 0-0.045 ng/ml Total Creatine Kinase 27 26-192 U/L Creatine Kinase MB 1.4 0.5-3.6 ng/ml Creatine Kinase MB Ratio 5.2 0-3.0 Microbiology Results 03/24/17 Blood Culture, Received Pending 03/24/17 Blood Culture, Received Pending Diagnostic Radiology Chest x-ray 03/24/2017 FINDINGS: Cardiac silhouette is again enlarged. There is atherosclerosis of the aorta. There is pulmonary vascular congestion with background reticulation and right greater than left bibasilar alveolar opacities with blunting of the costophrenic angles. The bibasilar opacities have slightly progressed from comparison and become more confluent. The masslike opacity seen on the prior study is not as apparent however is again seen, 1.9 x 3.5 cm likely correlating with focal groundglass opacity on comparison chest CT which measured 2.7 x 2.4 cm. Stent graft of the left axillary region is seen. The bones appear grossly intact. IMPRESSION: 1. Cardiomegaly with mild pulmonary edema pattern and small bilateral pleural effusions. 2. Bibasilar alveolar opacities may reflect atelectasis or pneumonia. 3. Focal masslike opacity of the right lung base likely correlates with 2.7 cm groundglass opacity seen on comparison chest CT dated 01/28/2017. This appears slightly smaller than comparison chest radiograph. Close follow-up is needed. 06/22/2017-Ejection Fraction = 50-55%. No regional wall motion abnormalities noted. There is moderate mitral regurgitation. Grade I diastolic dysfunction, ( abnormal relaxation pattern). EKG Sinus tachycardia Possible Left atrial enlargement Left ventricular hypertrophy Anteroseptal infarct (cited on or before 24-MAR-2017) Abnormal ECG Impression Assessment and Plan Right lung cavitary mass Pneumonia COPD Interstitial lung disease Will treat empirically for pneumonia. I agree that due to patient's complicated respiratory history we should treat empirically to cover for pseudomonas and as well as MRSA. 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 The lesion appears to be decreasing in size in comparison to previous images. Continue with Levaquin as well as Zosyn. Follow-up sputum as well as blood cultures. Continue with supplemental oxygen to maintain an O2 saturation between 88-92% Continue with nebulizer. Will order flutter valve for pulmonary toilet. Optimize cardiac as well as hypertensive medication as episodes of elevated hypertension can lead to worsening pulmonary edema. Try to maintain patient in negative fluid balance with diuresis as tolerated. Please consult Dr. Nguyen, who has been following patient in the community.
--- NOTE | 2017-03-24 20:17 | Progress Note ---
Medicine Progress Note Date & Time of Visit: Mar 24, 2017 at 20:17. Subjective Pt was seen and examined Sitting in bed with no distress Pt said that her left side chest and arm pain slightly improved he said that she is still having SOB with exertion denies any palpitation, fever and chills Objective Last 8 Hrs Date Time Temp Pulse Resp B/P (MAP) Pulse Ox O2 Delivery O2 Flow Rate FiO2 03/24/17 19:00 82 14 94 Nasal Cannula 2.0 03/24/17 16:32 36.4 77 22 146/61 (89) 97 Nasal Cannula 2.0 03/24/17 16:00 Nasal Cannula 2.0 03/24/17 15:16 75 14 93 Nasal Cannula 2.0 03/24/17 14:00 36.6 67 128/57 (80) 03/24/17 14:00 67 128/57 03/24/17 13:45 67 107/48 03/24/17 13:30 68 107/54 03/24/17 13:15 69 111/53 03/24/17 13:06 68 117/59 03/24/17 13:00 68 96/51 03/24/17 12:56 67 92/48 03/24/17 12:45 68 118/57 03/24/17 12:37 68 96/52 03/24/17 12:30 70 117/57 Physical Exam: General- No acute distress Head- atraumatic Eyes- PERRL, EOMI ENT- oropharynx clear Neck- supple, no JVD Lungs- decrease breath sound Heart- regular rhythm Abdomen- normal bowel sounds, soft Extremities- no calf tenderness Neuro- alert, oriented x 3; PERRL, EOMI Skin- warm & dry Laboratory Results: Last 24 Hours Test 03/24/17 05:44 03/24/17 05:48 03/24/17 16:51 White Blood Count 7.56 K/uL Red Blood Count 3.46 M/uL Hemoglobin 8.9 g/dL Hematocrit 29.0 % Mean Corpuscular Volume 83.8 fL Mean Corpuscular Hemoglobin 25.7 pg Mean Corpuscular Hemoglobin Concent 30.7 g/dl Platelet Count 105 K/uL Mean Platelet Volume 9.2 fL Neutrophils (%) (Auto) 85.4 % Lymphocytes (%) (Auto) 5.2 % Monocytes (%) (Auto) 7.8 % Eosinophils (%) (Auto) 1.1 % Basophils (%) (Auto) 0.4 % Neutrophils # (Auto) 6.46 K/uL Lymphocytes # (Auto) 0.39 K/uL Monocytes # (Auto) 0.59 K/uL Eosinophils # (Auto) 0.08 K/uL Basophils # (Auto) 0.03 K/uL RDW Standard Deviation 57.9 fL RDW Coefficient of Variation 18.9 % Immature Granulocyte % (Auto) 0.1 % Immature Granulocyte # (Auto) 0.01 K/uL Red Blood Cell Morphology Unremarkable Sodium Level 140 mmol/L Potassium Level 4.9 mmol/L Chloride Level 107 mmol/L Carbon Dioxide Level 23 mmol/L Anion Gap 10.0 mmol/L Blood Urea Nitrogen 61 mg/dl Creatinine 8.90 mg/dl Est Creatinine Clear Calc Drug Dose 4.7 ml/min Estimated GFR () 5.1 Estimated GFR (Non- 4.4 BUN/Creatinine Ratio 6.9 Random Glucose 114 mg/dl Calcium Level 8.6 mg/dl Magnesium Level 2.2 mg/dl Total Bilirubin 1.4 mg/dl Direct Bilirubin 0.4 mg/dl Aspartate Amino Transf (AST/SGOT) 15 U/L Alanine Aminotransferase (ALT/SGPT) 11 U/L Alkaline Phosphatase 136 U/L Troponin I < 0.015 ng/ml 0.021 ng/ml Total Protein 6.1 gm/dl Albumin 2.8 gm/dl Lipase 185 U/L Bedside Troponin I < 0.030 ng/ml Total Creatine Kinase 27 U/L Creatine Kinase MB 1.4 ng/ml Creatine Kinase MB Ratio 5.2 Date/Time Source Procedure Growth Status 03/24/17 09:35 Blood Blood Culture Pending Received 03/24/17 09:18 Blood Blood Culture Pending Received Assessment & Plan Chest pain Mostly atypical Need to r/o ACS due to risks factor CM are negative EKG showed no CT ischemic changes No asa was given due to allergic reaction noted on chart Continue metoprolol and statin continue monitor in telemetry HCAP S/p bronchoscopy for right lung mass a couple of weeks ago. CXR showed b/l infiltrates Starting on levaquin and zosyn to cover pseudomonas and MRSA, allergic with vanco and linezolid Blood cx and sputum cx pending Continue oxygen supplement pulmonary on board Hypertension SBP>200 improved somewhat with Lopressor IV and Nitro given in the ER. Continue home med Monitor BP Oral radha Continue Nystatin Diarrhea If diarrhea worsening, will send stool fo C-diff ESRD on HD Ryan Prince, Sat had HD today, nephro plan to HD tomorrow Nephro on board Anemia Due to ESRD Hgb stable DVT px On heparin subq CODE STATUS Full Code Consultants: Nephrology Current Inpatient Medications: Current Inpatient Medications Medications (Trade) Dose Ordered Sig/Jacob Route Start Time Stop Time Status Last Admin Dose Admin Heparin Sodium (Porcine) (Heparin Sq 5000 Unit/0.5ml) 5,000 unit Q8 SQ 03/24/17 14:00 04/23/17 13:59 Acetaminophen (Tylenol Tab) 650 mg Q4H PRN PO 03/24/17 07:15 04/23/17 07:14 Ondansetron HCl (Zofran Inj) 4 mg Q6H PRN IV 03/24/17 07:15 04/23/17 07:14 Nitroglycerin (Nitrostat Tab) 0.4 mg UD PRN SL 03/24/17 07:15 04/23/17 07:14 Morphine Sulfate (MoRPHine SULFATE INJ) 2 mg Q30M PRN IV 03/24/17 07:15 04/07/17 07:14 Piperacillin Sod/ Tazobactam Sod (Consult) 1 ea UD PRN N/A 03/24/17 09:45 04/23/17 09:44 Amlodipine Besylate (Norvasc Tab) 5 mg QAM PO 03/24/17 09:00 04/23/17 08:59 03/24/17 09:42 5 MG Calcium Acetate (Phoslo Cap) 667 mg TIDM PO 03/24/17 11:30 04/23/17 11:59 03/24/17 17:09 667 MG Ferrous Sulfate (Feosol Tab) 325 mg BID PO 03/24/17 09:00 04/23/17 08:59 03/24/17 09:42 325 MG Hydralazine HCl (Apresoline Tab) 25 mg TID PO 03/24/17 09:00 04/23/17 08:59 03/24/17 14:31 25 MG Levothyroxine Sodium (Synthroid Tab) 75 mcg DAILYBB PO 03/24/17 09:30 04/23/17 09:29 03/24/17 09:43 75 MCG Multivitamins/ Minerals (Multivitamin W/ Minerals Tab) 1 tab QAM PO 03/24/17 09:00 04/23/17 08:59 03/24/17 09:41 1 TAB Pantoprazole Sodium (Protonix Tab) 40 mg QAM PO 03/24/17 09:00 04/23/17 08:59 03/24/17 09:41 40 MG Albuterol/ Ipratropium (Duoneb) 3 ml QIDR INH 03/24/17 12:00 04/23/17 11:59 03/24/17 19:00 3 ML Nystatin (Mycostatin Susp) 5 ml QID PO 03/24/17 09:00 04/03/17 08:59 03/24/17 17:09 5 ML Metoprolol Tartrate (Lopressor Tab) 12.5 mg BID PO 03/24/17 09:00 04/23/17 08:59 03/24/17 09:42 12.5 MG Simvastatin (Zocor Tab) 20 mg QAM PO 03/25/17 09:00 04/23/17 08:59 Epoetin Rc (Procrit Inj) 10,000 units TODAY@1000 IV. 03/24/17 10:00 03/24/17 23:59 03/24/17 13:05 10,000 UNITS Levofloxacin (Consult) 1 ea UD PRN N/A 03/24/17 09:45 04/23/17 09:44 Levofloxacin 500 mg/Prmx 100 ml @ 100 mls/hr Q48H IV 03/26/17 10:00 04/02/17 09:59 Piperacillin Sod/ Tazobactam Sod 3.375 gm/Dextrose 115 ml @ 28.75 mls/ hr Q12@0600,1800 IV 03/24/17 18:00 03/31/17 17:59 03/24/17 17:09 28.75 MLS/HR
[2017-03-25] VITALS (21 sets, daily range): BP systolic 140–170; BP diastolic 49–82; PULSE 67–83; TEMP 36.5–37.1; O2SAT 92–97
[2017-03-25] MEDS: LEVOTHYROXINE 75 MCG TAB PO SCH (05:36)
[2017-03-25] MEDS: PIPERACILL/TAZOBAC IV 3.375 GM in DEXTROSE 5% 100ML IV SCH ×2 (05:36→19:30)
[2017-03-25] MEDS: HEPARIN SOD 5000 UNIT/0.5 ML CARP SQ SCH ×3 (05:36→20:26)
[2017-03-25 06:04] LABS: INR 1.1 (0.9-1.1); PARTIAL THROMBOPLASTIN RATIO 1.2; PROTHROMBIN TIME (PATIENT) 11.4 SECONDS (9.0-12.0)
[2017-03-25] MEDS: ALBUT/IPRATROP 3MG/0.5MG NEB 3 ML VIAL INH SCH ×4 (07:13→19:21)
[2017-03-25] MEDS ORDERED: ALBUMIN HUMAN 25% 12.5 GM/50 ML VIAL IV SCH (07:45)
[2017-03-25] MEDS ORDERED: EPOETIN ALFA 10,000 UNITS/ML VIAL IV. SCH (07:45)
[2017-03-25] MEDS: SIMVASTATIN 20 MG TAB PO SCH (07:48)
[2017-03-25] MEDS: CEROVITE ADV FORMULA TAB PO SCH (07:48)
[2017-03-25] MEDS: METOPROLOL TARTRATE 25 MG TAB PO SCH ×2 (07:48→20:29)
[2017-03-25] MEDS: AMLODIPINE BESYLATE 5 MG TAB PO SCH (07:48)
[2017-03-25] MEDS: FERROUS SULFATE 325 MG TAB PO SCH ×2 (07:48→20:28)
[2017-03-25] MEDS: PANTOprazole SOD 40 MG TAB PO SCH (07:48)
[2017-03-25] MEDS: CALCIUM ACETATE 667MG GELCAP PO SCH ×3 (07:49→18:54)
[2017-03-25] MEDS: NYSTATIN SUSP 500,000 U/5 ML UDC PO SCH ×4 (07:49→20:26)
--- NOTE | 2017-03-25 08:10 | Nephrology Progress Note ---
Nephrology Progress Note Date of Service: Mar 25, 2017. Subjective 57 yo female with ESRD who was found to have a pneumonia. still with a dry cough. breathing better. had 1400cc off yesterday. has basilar rales. pain in arm is better. Objective Date Time Temp Pulse Resp B/P (MAP) Pulse Ox O2 Delivery O2 Flow Rate FiO2 03/25/17 07:30 36.5 71 20 167/74 (105) 97 2.0 03/25/17 07:14 71 28 97 Nasal Cannula 2.0 03/25/17 04:22 36.6 73 18 165/79 (107) 96 Nasal Cannula 03/25/17 04:00 Nasal Cannula 2.0 03/25/17 00:08 36.8 69 20 165/76 (105) 96 Nasal Cannula 03/24/17 23:59 Nasal Cannula 2.0 03/24/17 20:17 36.7 82 22 158/76 (103) 92 Nasal Cannula 2.0 03/24/17 20:00 Nasal Cannula 2.0 03/24/17 19:00 82 14 94 Nasal Cannula 2.0 03/24/17 16:32 36.4 77 22 146/61 (89) 97 Nasal Cannula 2.0 03/24/17 16:00 Nasal Cannula 2.0 03/24/17 15:16 75 14 93 Nasal Cannula 2.0 03/24/17 14:00 36.6 67 128/57 (80) 03/24/17 14:00 67 128/57 03/24/17 13:45 67 107/48 03/24/17 13:30 68 107/54 03/24/17 13:15 69 111/53 03/24/17 13:06 68 117/59 18 13:00 68 96/51 03/24/17 12:56 67 92/48 03/24/17 12:45 68 118/57 03/24/17 12:37 68 96/52 03/24/17 12:30 70 117/57 18 12:15 69 112/49 18/17 12:00 71 121/56 18 11:45 71 132/66 18/17 11:36 62 14 96 Nasal Cannula 2.0 03/24/17 11:30 74 132/66 18 11:24 Nasal Cannula 2.0 03/24/17 11:15 73 159/71 03/24/17 11:00 78 162/67 03/24/17 10:44 36.5 77 169/68 (101) 03/24/17 09:50 188/98 (128) 03/24/17 08:20 36.6 88 20 177/72 (107) 98 Nasal Cannula 2.0 Physical Exam: General-[id number] Eyes-no scleral icterus ENT-mmm Neck-supple Lungs-basilar rales Heart-rrr Abdomen-bs+ s/nt/nd Extremities-no c/c/e Neuro-nonfocal Current Inpatient Medications Medications (Trade) Dose Ordered Sig/Jacob Route Start Time Stop Time Status Last Admin Dose Admin Heparin Sodium (Porcine) (Heparin Sq 5000 Unit/0.5ml) 5,000 unit Q8 SQ 03/24/17 14:00 04/23/17 13:59 Acetaminophen (Tylenol Tab) 650 mg Q4H PRN PO 03/24/17 07:15 04/23/17 07:14 Ondansetron HCl (Zofran Inj) 4 mg Q6H PRN IV 03/24/17 07:15 04/23/17 07:14 Nitroglycerin (Nitrostat Tab) 0.4 mg UD PRN SL 03/24/17 07:15 04/23/17 07:14 Morphine Sulfate (MoRPHine SULFATE INJ) 2 mg Q30M PRN IV 03/24/17 07:15 04/07/17 07:14 Piperacillin Sod/ Tazobactam Sod (Consult) 1 ea UD PRN N/A 03/24/17 09:45 04/23/17 09:44 Amlodipine Besylate (Norvasc Tab) 5 mg QAM PO 03/24/17 09:00 04/23/17 08:59 03/25/17 07:48 5 MG Calcium Acetate (Phoslo Cap) 667 mg TIDM PO 03/24/17 11:30 04/23/17 11:59 03/25/17 07:49 667 MG Ferrous Sulfate (Feosol Tab) 325 mg BID PO 03/24/17 09:00 04/23/17 08:59 03/25/17 07:48 325 MG Hydralazine HCl (Apresoline Tab) 25 mg TID PO 03/24/17 09:00 04/23/17 08:59 03/25/17 07:48 25 MG Levothyroxine Sodium (Synthroid Tab) 75 mcg DAILYBB PO 03/24/17 09:30 04/23/17 09:29 03/25/17 05:36 75 MCG Multivitamins/ Minerals (Multivitamin W/ Minerals Tab) 1 tab QAM PO 03/24/17 09:00 04/23/17 08:59 03/25/17 07:48 1 TAB Pantoprazole Sodium (Protonix Tab) 40 mg QAM PO 03/24/17 09:00 04/23/17 08:59 03/25/17 07:48 40 MG Albuterol/ Ipratropium (Duoneb) 3 ml QIDR INH 03/24/17 12:00 04/23/17 11:59 03/25/17 07:13 3 ML Nystatin (Mycostatin Susp) 5 ml QID PO 03/24/17 09:00 04/03/17 08:59 03/25/17 07:49 5 ML Metoprolol Tartrate (Lopressor Tab) 12.5 mg BID PO 03/24/17 09:00 04/23/17 08:59 03/25/17 07:48 12.5 MG Simvastatin (Zocor Tab) 20 mg QAM PO 03/25/17 09:00 04/23/17 08:59 03/25/17 07:48 20 MG Levofloxacin (Consult) 1 ea UD PRN N/A 03/24/17 09:45 04/23/17 09:44 Levofloxacin 500 mg/Prmx 100 ml @ 100 mls/hr Q48H IV 03/26/17 10:00 04/02/17 09:59 Piperacillin Sod/ Tazobactam Sod 3.375 gm/Dextrose 115 ml @ 28.75 mls/ hr Q12@0600,1800 IV 03/24/17 18:00 03/31/17 17:59 03/25/17 05:36 28.75 MLS/HR Epoetin Rc (Procrit Inj) 10,000 units 0745 IV. 03/25/17 07:45 03/25/17 12:00 Albumin Human (Albumin 25%) 25 gm 0745 IV 03/25/17 07:45 03/25/17 12:00 Last 24 Hours Test 03/24/17 16:51 03/25/17 05:32 03/25/17 07:31 Total Creatine Kinase 27 U/L Creatine Kinase MB 1.4 ng/ml Creatine Kinase MB Ratio 5.2 Troponin I 0.021 ng/ml Prothrombin Time 11.4 SECONDS Prothromb Time International Ratio 1.1 Activated Partial Thromboplast Time 30.6 SECONDS Partial Thromboplastin Ratio 1.2 Date/Time Source Procedure Growth Status 03/24/17 09:35 Blood Blood Culture Pending Received 03/24/17 09:18 Blood Blood Culture Pending Received Assessment & Plan ESRD-pt had dialysis yesterday. has basilar rales and was difficult to remove fluid yesterday. may be more infection than fluid, however want to optimize lung status as much as possible. will attempt dialysis again with albumin. pt though clinically improving. .
[2017-03-25 08:33] LABS: HEMATOCRIT 29.7 % (37-47); MEAN CELL VOLUME 83.7 fL (80-100); MEAN CORPUSCULAR HEMOGLOBIN 25.6 pg (25-34); MEAN CORPUSCULAR HGB CONC 30.6 g/dl (32-36); MEAN PLATELET VOLUME 9.6 fL (7.4-10.4); PLATELET COUNT 132 K/uL (130-400); RED BLOOD COUNT 3.55 M/uL (4.2-5.4); WHITE BLOOD COUNT 6.79 K/uL (4.8-10.8)
[2017-03-25 08:58] LABS: BUN/CREATININE RATIO 6.1 (10-20); CALCIUM 8.4 mg/dl (8.5-10.1); CREATININE 5.4 mg/dl (0.60-1.20)
--- NOTE | 2017-03-25 10:52 | Pulmonology Progress Note ---
Pulmonary Progress Note Date of Service Mar 25, 2017. Attending Dr. Alvarez Subjective Patient seen and examined this morning. She states that she is having some productive cough this morning is associated with increased dyspnea on exertion. She denies any hemoptysis.She denies any further pain in fistula, but says she still has some left chest discomfort at the surgical site. Objective Vital signs reviewed. Afebrile, pulse 71, respiratory rate of 20, blood pressure 167/74 pulse oximetry of 97% on 2 L nasal cannula. General Appearance: thin, sitting in bed Head: NORMOCEPHALIC, ATRAUMATIC Eyes: PERRLA, NO DISCHARGE, EOMI, SCLERAE NORMAL ENT: other (white plaques on tongue) Neck: NORMAL RANGE OF MOTION, NO TENDERNESS, TRACHEA MIDLINE, SUPPLE Respiratory: NO RESPIRATORY DISTRESS, wheezing throughout all lung gillis. Cardiovasular: REGULAR RATE/RHYTHM, NORMAL S1S2 Abdomen: NON TENDER, NORMAL BOWEL SOUNDS, NO REBOUND, NO MASSES, NO GUARDING Upper Extremities: NO EDEMA, other (left upper extremity fistula has a palpable thrill) Lower Extremities: NO EDEMA, other (no cyanosis, no clubbing) Neuro: ALERT, ORIENTED x 3 Psychiatric: NORMAL AFFECT, NO SUICIDAL IDEATION Chest x-ray 03/24/2017 FINDINGS: Cardiac silhouette is again enlarged. There is atherosclerosis of the aorta. There is pulmonary vascular congestion with background reticulation and right greater than left bibasilar alveolar opacities with blunting of the costophrenic angles. The bibasilar opacities have slightly progressed from comparison and become more confluent. The masslike opacity seen on the prior study is not as apparent however is again seen, 1.9 x 3.5 cm likely correlating with focal groundglass opacity on comparison chest CT which measured 2.7 x 2.4 cm. Stent graft of the left axillary region is seen. The bones appear grossly intact. IMPRESSION: 1. Cardiomegaly with mild pulmonary edema pattern and small bilateral pleural effusions. 2. Bibasilar alveolar opacities may reflect atelectasis or pneumonia. 3. Focal masslike opacity of the right lung base likely correlates with 2.7 cm groundglass opacity seen on comparison chest CT dated 01/28/2017. This appears slightly smaller than comparison chest radiograph. Close follow-up is needed. 06/22/2017-Ejection Fraction = 50-55%. No regional wall motion abnormalities noted. There is moderate mitral regurgitation. Grade I diastolic dysfunction, ( abnormal relaxation pattern). Assessment & Plan Right lung cavitary mass Pneumonia COPD Interstitial lung disease Chronic hypoxemic respiratory failure I agree that due to patient's complicated respiratory history we should treat empirically to cover for pseudomonas and as well as MRSA. 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 The lesion appears to be decreasing in size in comparison to previous images. Continue with Levaquin as well as Zosyn. Follow-up sputum as well as blood cultures. Continue with supplemental oxygen to maintain an O2 saturation between 88-92% Continue with nebulizer. Will order albuterol when necessary Continue with flutter valve for pulmonary toilet. Optimize cardiac as well as hypertensive medication as episodes of elevated hypertension can lead to worsening pulmonary edema. Data Medications: Current Inpatient Medications Medications (Trade) Dose Ordered Sig/Jacob Route Start Time Stop Time Status Last Admin Dose Admin Heparin Sodium (Porcine) (Heparin Sq 5000 Unit/0.5ml) 5,000 unit Q8 SQ 03/24/17 14:00 04/23/17 13:59 Acetaminophen (Tylenol Tab) 650 mg Q4H PRN PO 03/24/17 07:15 04/23/17 07:14 Ondansetron HCl (Zofran Inj) 4 mg Q6H PRN IV 03/24/17 07:15 04/23/17 07:14 Nitroglycerin (Nitrostat Tab) 0.4 mg UD PRN SL 03/24/17 07:15 04/23/17 07:14 Morphine Sulfate (MoRPHine SULFATE INJ) 2 mg Q30M PRN IV 03/24/17 07:15 04/07/17 07:14 Piperacillin Sod/ Tazobactam Sod (Consult) 1 ea UD PRN N/A 03/24/17 09:45 04/23/17 09:44 Amlodipine Besylate (Norvasc Tab) 5 mg QAM PO 03/24/17 09:00 04/23/17 08:59 03/25/17 07:48 5 MG Calcium Acetate (Phoslo Cap) 667 mg TIDM PO 03/24/17 11:30 04/23/17 11:59 03/25/17 07:49 667 MG Ferrous Sulfate (Feosol Tab) 325 mg BID PO 03/24/17 09:00 04/23/17 08:59 03/25/17 07:48 325 MG Hydralazine HCl (Apresoline Tab) 25 mg TID PO 03/24/17 09:00 04/23/17 08:59 03/25/17 07:48 25 MG Levothyroxine Sodium (Synthroid Tab) 75 mcg DAILYBB PO 03/24/17 09:30 04/23/17 09:29 03/25/17 05:36 75 MCG Multivitamins/ Minerals (Multivitamin W/ Minerals Tab) 1 tab QAM PO 03/24/17 09:00 04/23/17 08:59 03/25/17 07:48 1 TAB Pantoprazole Sodium (Protonix Tab) 40 mg QAM PO 03/24/17 09:00 04/23/17 08:59 03/25/17 07:48 40 MG Albuterol/ Ipratropium (Duoneb) 3 ml QIDR INH 03/24/17 12:00 04/23/17 11:59 03/25/17 07:13 3 ML Nystatin (Mycostatin Susp) 5 ml QID PO 03/24/17 09:00 04/03/17 08:59 03/25/17 07:49 5 ML Metoprolol Tartrate (Lopressor Tab) 12.5 mg BID PO 03/24/17 09:00 04/23/17 08:59 03/25/17 07:48 12.5 MG Simvastatin (Zocor Tab) 20 mg QAM PO 03/25/17 09:00 04/23/17 08:59 03/25/17 07:48 20 MG Levofloxacin (Consult) 1 ea UD PRN N/A 03/24/17 09:45 04/23/17 09:44 Levofloxacin 500 mg/Prmx 100 ml @ 100 mls/hr Q48H IV 03/26/17 10:00 04/02/17 09:59 Piperacillin Sod/ Tazobactam Sod 3.375 gm/Dextrose 115 ml @ 28.75 mls/ hr Q12@0600,1800 IV 03/24/17 18:00 03/31/17 17:59 03/25/17 05:36 28.75 MLS/HR Epoetin Rc (Procrit Inj) 10,000 units 0745 IV. 03/25/17 07:45 03/25/17 12:00 Albumin Human (Albumin 25%) 25 gm 0745 IV 03/25/17 07:45 03/25/17 12:00 Vital Signs: Date Time Temp Pulse Resp B/P (MAP) Pulse Ox O2 Delivery O2 Flow Rate FiO2 03/25/17 08:00 Nasal Cannula 2.0 03/25/17 07:30 36.5 71 20 167/74 (105) 97 2.0 03/25/17 07:14 71 28 97 Nasal Cannula 2.0 03/25/17 04:22 36.6 73 18 165/79 (107) 96 Nasal Cannula 03/25/17 04:00 Nasal Cannula 2.0 03/25/17 00:08 36.8 69 20 165/76 (105) 96 Nasal Cannula 03/24/17 23:59 Nasal Cannula 2.0 03/24/17 20:17 36.7 82 22 158/76 (103) 92 Nasal Cannula 2.0 03/24/17 20:00 Nasal Cannula 2.0 03/24/17 19:00 82 14 94 Nasal Cannula 2.0 03/24/17 16:32 36.4 77 22 146/61 (89) 97 Nasal Cannula 2.0 03/24/17 16:00 Nasal Cannula 2.0 03/24/17 15:16 75 14 93 Nasal Cannula 2.0 03/24/17 14:00 36.6 67 128/57 (80) 03/24/17 14:00 67 128/57 03/24/17 13:45 67 107/48 03/24/17 13:30 68 107/54 03/24/17 13:15 69 111/53 03/24/17 13:06 68 117/59 03/24/17 13:00 68 96/51 03/24/17 12:56 67 92/48 03/24/17 12:45 68 118/57 03/24/17 12:37 68 96/52 03/24/17 12:30 70 117/57 03/24/17 12:15 69 112/49 03/24/17 12:00 71 121/56 03/24/17 11:45 71 132/66 03/24/17 11:36 62 14 96 Nasal Cannula 2.0 03/24/17 11:30 74 132/66 03/24/17 11:24 Nasal Cannula 2.0 03/24/17 11:15 73 159/71 03/24/17 11:00 78 162/67 03/24/17 10:44 36.5 77 169/68 (101) Laboratory Results: Last 24 Hours Test 03/24/17 16:51 03/25/17 05:32 03/25/17 06:10 Total Creatine Kinase 27 U/L Creatine Kinase MB 1.4 ng/ml Creatine Kinase MB Ratio 5.2 Troponin I 0.021 ng/ml Prothrombin Time 11.4 SECONDS Prothromb Time International Ratio 1.1 Activated Partial Thromboplast Time 30.6 SECONDS Partial Thromboplastin Ratio 1.2 White Blood Count 6.79 K/uL Red Blood Count 3.55 M/uL Hemoglobin 9.1 g/dL Hematocrit 29.7 % Mean Corpuscular Volume 83.7 fL Mean Corpuscular Hemoglobin 25.6 pg Mean Corpuscular Hemoglobin Concent 30.6 g/dl RDW Standard Deviation 57.6 fL RDW Coefficient of Variation 18.7 % Platelet Count 132 K/uL Mean Platelet Volume 9.6 fL Sodium Level 136 mmol/L Potassium Level 5.0 mmol/L Chloride Level 100 mmol/L Carbon Dioxide Level 30 mmol/L Anion Gap 6.0 mmol/L Blood Urea Nitrogen 33 mg/dl Creatinine 5.40 mg/dl Est Creatinine Clear Calc Drug Dose 7.9 ml/min Estimated GFR () 9.4 Estimated GFR (Non- 8.1 BUN/Creatinine Ratio 6.1 Random Glucose 92 mg/dl Calcium Level 8.4 mg/dl
[2017-03-25] MEDS ORDERED: ALBUTEROL 0.083% NEBU SOLN 3 ML VIAL INH STA (10:53)
[2017-03-25] MEDS ORDERED: ALBUTEROL 0.083% NEBU SOLN 3 ML VIAL INH PRN (11:00)
--- NOTE | 2017-03-25 11:39 | Progress Note ---
Medicine Progress Note Date & Time of Visit: Mar 25, 2017 at 11:33. Subjective Pt was seen and examined sitting in bed with no distress Pt said that her breathing feels the same she said that the left arm pain improved denies any chest pain, palpitation, dizziness, fever Objective Last 8 Hrs Date Time Temp Pulse Resp B/P (MAP) Pulse Ox O2 Delivery O2 Flow Rate FiO2 03/25/17 11:09 67 28 97 Nasal Cannula 2.0 03/25/17 10:56 36.9 71 18 149/82 (104) 97 Nasal Cannula 2.0 03/25/17 08:00 Nasal Cannula 2.0 03/25/17 07:30 36.5 71 20 167/74 (105) 97 2.0 03/25/17 07:14 71 28 97 Nasal Cannula 2.0 03/25/17 04:22 36.6 73 18 165/79 (107) 96 Nasal Cannula 03/25/17 04:00 Nasal Cannula 2.0 Physical Exam: General- No acute distress Head- atraumatic Eyes- PERRL, EOMI ENT- oropharynx clear Neck- supple, no JVD Lungs- decrease breath sound, +Mild wheezing Heart- regular rhythm Abdomen- normal bowel sounds, soft Extremities- no calf tenderness Neuro- alert, oriented x 3; PERRL, EOMI Skin- warm & dry Laboratory Results: Last 24 Hours Test 03/24/17 16:51 03/25/17 05:32 03/25/17 06:10 Total Creatine Kinase 27 U/L Creatine Kinase MB 1.4 ng/ml Creatine Kinase MB Ratio 5.2 Troponin I 0.021 ng/ml Prothrombin Time 11.4 SECONDS Prothromb Time International Ratio 1.1 Activated Partial Thromboplast Time 30.6 SECONDS Partial Thromboplastin Ratio 1.2 White Blood Count 6.79 K/uL Red Blood Count 3.55 M/uL Hemoglobin 9.1 g/dL Hematocrit 29.7 % Mean Corpuscular Volume 83.7 fL Mean Corpuscular Hemoglobin 25.6 pg Mean Corpuscular Hemoglobin Concent 30.6 g/dl RDW Standard Deviation 57.6 fL RDW Coefficient of Variation 18.7 % Platelet Count 132 K/uL Mean Platelet Volume 9.6 fL Sodium Level 136 mmol/L Potassium Level 5.0 mmol/L Chloride Level 100 mmol/L Carbon Dioxide Level 30 mmol/L Anion Gap 6.0 mmol/L Blood Urea Nitrogen 33 mg/dl Creatinine 5.40 mg/dl Est Creatinine Clear Calc Drug Dose 7.9 ml/min Estimated GFR () 9.4 Estimated GFR (Non- 8.1 BUN/Creatinine Ratio 6.1 Random Glucose 92 mg/dl Calcium Level 8.4 mg/dl Assessment & Plan Chest pain Mostly atypical Need to r/o ACS due to risks factor CM are negative EKG showed no CT ischemic changes No asa was given due to allergic reaction noted on chart Continue metoprolol and statin continue monitor in telemetry Stable HCAP S/p bronchoscopy for right lung mass a couple of weeks ago. CXR showed b/l infiltrates Starting on levaquin and zosyn to cover pseudomonas and MRSA, allergic with vanco and linezolid Blood cx and sputum cx pending Continue oxygen supplement Might consider low dose of prednisone if wheezing continue after HD pulmonary on board Hypertension SBP>200 improved somewhat with Lopressor IV and Nitro given in the ER. Continue home med Monitor BP Oral radha Continue Nystatin Diarrhea Check stool for c-diff will monitor electrolytes ESRD on HD , , Sat had HD yesterday, nephro plan to HD today again Nephro on board Anemia Due to ESRD Hgb stable DVT px On heparin subq CODE STATUS Full Code Consultants: Nephrology Current Inpatient Medications: Current Inpatient Medications Medications (Trade) Dose Ordered Sig/Jacob Route Start Time Stop Time Status Last Admin Dose Admin Heparin Sodium (Porcine) (Heparin Sq 5000 Unit/0.5ml) 5,000 unit Q8 SQ 03/24/17 14:00 04/23/17 13:59 Acetaminophen (Tylenol Tab) 650 mg Q4H PRN PO 03/24/17 07:15 04/23/17 07:14 Ondansetron HCl (Zofran Inj) 4 mg Q6H PRN IV 03/24/17 07:15 04/23/17 07:14 Nitroglycerin (Nitrostat Tab) 0.4 mg UD PRN SL 03/24/17 07:15 04/23/17 07:14 Morphine Sulfate (MoRPHine SULFATE INJ) 2 mg Q30M PRN IV 03/24/17 07:15 04/07/17 07:14 Piperacillin Sod/ Tazobactam Sod (Consult) 1 ea UD PRN N/A 03/24/17 09:45 04/23/17 09:44 Amlodipine Besylate (Norvasc Tab) 5 mg QAM PO 03/24/17 09:00 04/23/17 08:59 03/25/17 07:48 5 MG Calcium Acetate (Phoslo Cap) 667 mg TIDM PO 03/24/17 11:30 04/23/17 11:59 03/25/17 07:49 667 MG Ferrous Sulfate (Feosol Tab) 325 mg BID PO 03/24/17 09:00 04/23/17 08:59 03/25/17 07:48 325 MG Hydralazine HCl (Apresoline Tab) 25 mg TID PO 03/24/17 09:00 04/23/17 08:59 03/25/17 07:48 25 MG Levothyroxine Sodium (Synthroid Tab) 75 mcg DAILYBB PO 03/24/17 09:30 04/23/17 09:29 03/25/17 05:36 75 MCG Multivitamins/ Minerals (Multivitamin W/ Minerals Tab) 1 tab QAM PO 03/24/17 09:00 04/23/17 08:59 03/25/17 07:48 1 TAB Pantoprazole Sodium (Protonix Tab) 40 mg QAM PO 03/24/17 09:00 04/23/17 08:59 03/25/17 07:48 40 MG Albuterol/ Ipratropium (Duoneb) 3 ml QIDR INH 03/24/17 12:00 04/23/17 11:59 03/25/17 11:09 3 ML Nystatin (Mycostatin Susp) 5 ml QID PO 03/24/17 09:00 04/03/17 08:59 03/25/17 07:49 5 ML Metoprolol Tartrate (Lopressor Tab) 12.5 mg BID PO 03/24/17 09:00 04/23/17 08:59 03/25/17 07:48 12.5 MG Simvastatin (Zocor Tab) 20 mg QAM PO 03/25/17 09:00 04/23/17 08:59 03/25/17 07:48 20 MG Levofloxacin (Consult) 1 ea UD PRN N/A 03/24/17 09:45 04/23/17 09:44 Levofloxacin 500 mg/Prmx 100 ml @ 100 mls/hr Q48H IV 03/26/17 10:00 04/02/17 09:59 Piperacillin Sod/ Tazobactam Sod 3.375 gm/Dextrose 115 ml @ 28.75 mls/ hr Q12@0600,1800 IV 03/24/17 18:00 03/31/17 17:59 03/25/17 05:36 28.75 MLS/HR Epoetin Rc (Procrit Inj) 10,000 units 0745 IV. 03/25/17 07:45 03/25/17 12:00 Albumin Human (Albumin 25%) 25 gm 0745 IV 03/25/17 07:45 03/25/17 12:00 Albuterol Sulfate (Ventolin 0.083% 2.5MG/3ML Neb) 2.5 mg Q6R PRN INH 03/25/17 11:00 04/24/17 10:59
[2017-03-26] VITALS (22 sets, daily range): BP systolic 82–172; BP diastolic 52–85; PULSE 61–80; TEMP 36.5–37; O2SAT 95–98
[2017-03-26] MEDS: LEVOTHYROXINE 75 MCG TAB PO SCH (05:21)
[2017-03-26] MEDS: PIPERACILL/TAZOBAC IV 3.375 GM in DEXTROSE 5% 100ML IV SCH (05:21)
[2017-03-26] MEDS: HEPARIN SOD 5000 UNIT/0.5 ML CARP SQ SCH (05:23)
[2017-03-26 05:39] LABS: HEMATOCRIT 29.2 % (37-47); MEAN CELL VOLUME 84.6 fL (80-100); MEAN CORPUSCULAR HEMOGLOBIN 25.8 pg (25-34); MEAN CORPUSCULAR HGB CONC 30.5 g/dl (32-36); MEAN PLATELET VOLUME 9.2 fL (7.4-10.4); PLATELET COUNT 119 K/uL (130-400); RED BLOOD COUNT 3.45 M/uL (4.2-5.4); WHITE BLOOD COUNT 6.75 K/uL (4.8-10.8)
[2017-03-26 06:12] LABS: BUN/CREATININE RATIO 4.4 (10-20); CALCIUM 8.4 mg/dl (8.5-10.1); CREATININE 3.5 mg/dl (0.60-1.20); MAGNESIUM 2.2 mg/dl (1.8-2.4); PHOSPHORUS 4.1 mg/dl (2.5-4.9); POTASSIUM 4.6 mmol/L (3.5-5.1)
[2017-03-26] MEDS ORDERED: ALBUMIN HUMAN 25% 12.5 GM/50 ML VIAL IV SCH (07:00)
[2017-03-26] MEDS ORDERED: EPOETIN ALFA 10,000 UNITS/ML VIAL IV. SCH (07:00)
[2017-03-26] MEDS: ALBUT/IPRATROP 3MG/0.5MG NEB 3 ML VIAL INH SCH ×3 (07:07→15:00)
[2017-03-26] MEDS: CALCIUM ACETATE 667MG GELCAP PO SCH ×2 (07:30→13:26)
[2017-03-26] MEDS ORDERED: LEVOFLOXACIN 500MG / D5W IV SCH (10:00)
--- NOTE | 2017-03-26 12:05 | Pulmonology Progress Note ---
Pulmonary Progress Note Date of Service Mar 26, 2017. Attending Subjective Patient seen and examined. Currently undergoing dialysis. States she's feeling much better. Denies any chest pain or fistula seen. No further episodes of wheezing or hemoptysis. She is s/p removal of 1.5 L of fluid via HD yesterday. Objective Vitals reviewed and listed below. Total output since admission 2.9 L Appearance: thin, sitting in bed Head: NORMOCEPHALIC, ATRAUMATIC Eyes: PERRLA, NO DISCHARGE, EOMI, SCLERAE NORMAL ENT: other (white plaques on tongue)-improving Neck: NORMAL RANGE OF MOTION, NO TENDERNESS, TRACHEA MIDLINE, SUPPLE Respiratory: NO RESPIRATORY DISTRESS, wheezing throughout all lung gillis. Cardiovasular: REGULAR RATE/RHYTHM, NORMAL S1S2 Abdomen: NON TENDER, NORMAL BOWEL SOUNDS, NO REBOUND, NO MASSES, NO GUARDING Upper Extremities: NO EDEMA, other (left upper extremity fistula has a palpable thrill) Lower Extremities: NO EDEMA, other (no cyanosis, no clubbing) Neuro: ALERT, ORIENTED x 3 Psychiatric: NORMAL AFFECT, NO SUICIDAL IDEATION Chest x-ray 03/24/2017 FINDINGS: Cardiac silhouette is again enlarged. There is atherosclerosis of the aorta. There is pulmonary vascular congestion with background reticulation and right greater than left bibasilar alveolar opacities with blunting of the costophrenic angles. The bibasilar opacities have slightly progressed from comparison and become more confluent. The masslike opacity seen on the prior study is not as apparent however is again seen, 1.9 x 3.5 cm likely correlating with focal groundglass opacity on comparison chest CT which measured 2.7 x 2.4 cm. Stent graft of the left axillary region is seen. The bones appear grossly intact. IMPRESSION: 1. Cardiomegaly with mild pulmonary edema pattern and small bilateral pleural effusions. 2. Bibasilar alveolar opacities may reflect atelectasis or pneumonia. 3. Focal masslike opacity of the right lung base likely correlates with 2.7 cm groundglass opacity seen on comparison chest CT dated 01/28/2017. This appears slightly smaller than comparison chest radiograph. Close follow-up is needed. 06/22/2017-Ejection Fraction = 50-55%. No regional wall motion abnormalities noted. There is moderate mitral regurgitation. Grade I diastolic dysfunction, ( abnormal relaxation pattern). Assessment & Plan Right lung cavitary mass Pneumonia COPD Interstitial lung disease Chronic hypoxemic respiratory failure Patient appears to be clinically improving with fluid removal and empiric antibiotics. She should complete a total of one week course. Blood cultures are negative to date. I agree that due to patient's complicated respiratory history we should treat empirically to cover for pseudomonas and as well as MRSA. 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 The lesion appears to be decreasing in size in comparison to previous images. Continue with supplemental oxygen to maintain an O2 saturation between 88-92%. Continue with nebulizer. Continue with flutter valve for pulmonary toilet. She should follow up with Drs. Hurt and Patrick as an outpatient. Will sign of case for now. Feel free to contact me if you have any further questions. Data Medications: Current Inpatient Medications Medications (Trade) Dose Ordered Sig/Jacob Route Start Time Stop Time Status Last Admin Dose Admin Heparin Sodium (Porcine) (Heparin Sq 5000 Unit/0.5ml) 5,000 unit Q8 SQ 03/24/17 14:00 04/23/17 13:59 Acetaminophen (Tylenol Tab) 650 mg Q4H PRN PO 03/24/17 07:15 04/23/17 07:14 Ondansetron HCl (Zofran Inj) 4 mg Q6H PRN IV 03/24/17 07:15 04/23/17 07:14 Nitroglycerin (Nitrostat Tab) 0.4 mg UD PRN SL 03/24/17 07:15 04/23/17 07:14 Morphine Sulfate (MoRPHine SULFATE INJ) 2 mg Q30M PRN IV 03/24/17 07:15 04/07/17 07:14 Piperacillin Sod/ Tazobactam Sod (Consult) 1 ea UD PRN N/A 03/24/17 09:45 04/23/17 09:44 Amlodipine Besylate (Norvasc Tab) 5 mg QAM PO 03/24/17 09:00 04/23/17 08:59 03/25/17 07:48 5 MG Calcium Acetate (Phoslo Cap) 667 mg TIDM PO 03/24/17 11:30 04/23/17 11:59 03/25/17 18:54 667 MG Ferrous Sulfate (Feosol Tab) 325 mg BID PO 03/24/17 09:00 04/23/17 08:59 03/25/17 20:28 325 MG Hydralazine HCl (Apresoline Tab) 25 mg TID PO 03/24/17 09:00 04/23/17 08:59 03/25/17 20:27 25 MG Levothyroxine Sodium (Synthroid Tab) 75 mcg DAILYBB PO 03/24/17 09:30 04/23/17 09:29 03/26/17 05:21 75 MCG Multivitamins/ Minerals (Multivitamin W/ Minerals Tab) 1 tab QAM PO 03/24/17 09:00 04/23/17 08:59 03/25/17 07:48 1 TAB Pantoprazole Sodium (Protonix Tab) 40 mg QAM PO 03/24/17 09:00 04/23/17 08:59 03/25/17 07:48 40 MG Albuterol/ Ipratropium (Duoneb) 3 ml QIDR INH 03/24/17 12:00 04/23/17 11:59 03/26/17 10:47 3 ML Nystatin (Mycostatin Susp) 5 ml QID PO 03/24/17 09:00 04/03/17 08:59 03/25/17 19:30 5 ML Metoprolol Tartrate (Lopressor Tab) 12.5 mg BID PO 03/24/17 09:00 04/23/17 08:59 03/25/17 20:29 12.5 MG Simvastatin (Zocor Tab) 20 mg QAM PO 03/25/17 09:00 04/23/17 08:59 03/25/17 07:48 20 MG Levofloxacin (Consult) 1 ea UD PRN N/A 03/24/17 09:45 04/23/17 09:44 Levofloxacin 500 mg/Prmx 100 ml @ 100 mls/hr Q48H IV 03/26/17 10:00 04/02/17 09:59 Piperacillin Sod/ Tazobactam Sod 3.375 gm/Dextrose 115 ml @ 28.75 mls/ hr Q12@0600,1800 IV 03/24/17 18:00 03/31/17 17:59 03/26/17 05:21 28.75 MLS/HR Albuterol Sulfate (Ventolin 0.083% 2.5MG/3ML Neb) 2.5 mg Q6R PRN INH 03/25/17 11:00 04/24/17 10:59 Epoetin Rc (Procrit Inj) 10,000 units TODAY@0700 IV. 03/26/17 07:00 03/26/17 18:00 Albumin Human (Albumin 25%) 25 gm TODAY@0700 IV 03/26/17 07:00 03/26/17 18:00 03/26/17 09:35 25 GM Vital Signs: Date Time Temp Pulse Resp B/P (MAP) Pulse Ox O2 Delivery O2 Flow Rate FiO2 03/26/17 11:15 80 130/82 03/26/17 11:00 69 154/69 03/26/17 10:45 70 141/79 03/26/17 10:30 65 148/52 03/26/17 10:15 65 145/60 03/26/17 10:00 68 146/60 03/26/17 09:53 67 147/54 03/26/17 09:45 61 82/54 03/26/17 09:40 72 129/85 03/26/17 09:29 66 102/72 03/26/17 09:18 36.8 69 149/58 (88) 03/26/17 07:30 36.5 73 20 158/84 (108) 97 2.0 03/26/17 07:30 Nasal Cannula 2.0 03/26/17 07:07 65 24 95 Nasal Cannula 2.0 03/26/17 04:00 Nasal Cannula 2.0 03/26/17 03:38 36.9 73 16 148/71 (96) 98 Nasal Cannula 03/25/17 23:59 Nasal Cannula 2.0 03/25/17 23:47 36.8 75 16 141/79 (99) 96 Nasal Cannula 03/25/17 20:00 Nasal Cannula 2.0 03/25/17 19:57 36.7 83 20 166/65 (98) 97 Nasal Cannula 2.0 03/25/17 19:22 80 28 92 Nasal Cannula 2.0 03/25/17 18:28 37.0 82 156/61 (92) 03/25/17 18:00 68 158/49 03/25/17 17:40 75 170/61 03/25/17 17:20 73 154/66 03/25/17 17:00 79 140/64 03/25/17 16:40 71 149/59 03/25/17 16:20 76 148/64 03/25/17 16:00 73 142/55 03/25/17 15:35 72 154/70 03/25/17 15:29 37.1 73 153/68 (96) 03/25/17 15:15 70 163/79 03/25/17 15:05 69 145/67 03/25/17 12:00 Nasal Cannula 2.0 Laboratory Results: Last 24 Hours Test 03/26/17 05:20 White Blood Count 6.75 K/uL Red Blood Count 3.45 M/uL Hemoglobin 8.9 g/dL Hematocrit 29.2 % Mean Corpuscular Volume 84.6 fL Mean Corpuscular Hemoglobin 25.8 pg Mean Corpuscular Hemoglobin Concent 30.5 g/dl RDW Standard Deviation 57.8 fL RDW Coefficient of Variation 18.6 % Platelet Count 119 K/uL Mean Platelet Volume 9.2 fL Sodium Level 142 mmol/L Potassium Level 4.6 mmol/L Chloride Level 104 mmol/L Carbon Dioxide Level 32 mmol/L Anion Gap 6.0 mmol/L Blood Urea Nitrogen 15 mg/dl Creatinine 3.50 mg/dl Est Creatinine Clear Calc Drug Dose 12.0 ml/min Estimated GFR () 15.8 Estimated GFR (Non- 13.6 BUN/Creatinine Ratio 4.4 Random Glucose 92 mg/dl Calcium Level 8.4 mg/dl Phosphorus Level 4.1 mg/dl Magnesium Level 2.2 mg/dl Hepatitis B Surface Antigen NEG
[2017-03-26] MEDS: PANTOprazole SOD 40 MG TAB PO SCH (13:26)
[2017-03-26] MEDS: SIMVASTATIN 20 MG TAB PO SCH (13:26)
[2017-03-26] MEDS: AMLODIPINE BESYLATE 5 MG TAB PO SCH (13:27)
[2017-03-26] MEDS: METOPROLOL TARTRATE 25 MG TAB PO SCH (13:27)
[2017-03-26] MEDS: CEROVITE ADV FORMULA TAB PO SCH (13:27)
[2017-03-26] MEDS: NYSTATIN SUSP 500,000 U/5 ML UDC PO SCH ×2 (13:28→16:46)
[2017-03-26] MEDS: FERROUS SULFATE 325 MG TAB PO SCH (13:28)
--- NOTE | 2017-03-26 14:57 | Nephrology Progress Note ---
Nephrology Progress Note Date of Service: Mar 26, 2017. Subjective 57 yo female with ESRD who was found to have a pneumonia and clinically improving with antibiotics and daily dialysis. took off one liter today. pts energy levels are imrpoving. no more arm pain. feels much better. inquiring about when to go home. had chronic diarrhea prior to coming to hospital and screened for cdiff. Objective Date Time Temp Pulse Resp B/P (MAP) Pulse Ox O2 Delivery O2 Flow Rate FiO2 03/26/17 12:35 37.0 73 171/71 (104) 03/26/17 12:15 70 172/60 03/26/17 12:00 69 154/58 03/26/17 11:45 69 159/63 03/26/17 11:30 67 161/52 03/26/17 11:15 80 130/82 03/26/17 11:00 69 154/69 03/26/17 10:45 70 141/79 03/26/17 10:30 65 148/52 03/26/17 10:15 65 145/60 03/26/17 10:00 68 146/60 03/26/17 09:53 67 147/54 03/26/17 09:45 61 82/54 03/26/17 09:40 72 129/85 03/26/17 09:29 66 102/72 03/26/17 09:18 36.8 69 149/58 (88) 03/26/17 07:30 36.5 73 20 158/84 (108) 97 2.0 03/26/17 07:30 Nasal Cannula 2.0 03/26/17 07:07 65 24 95 Nasal Cannula 2.0 03/26/17 04:00 Nasal Cannula 2.0 03/26/17 03:38 36.9 73 16 148/71 (96) 98 Nasal Cannula 03/25/17 23:59 Nasal Cannula 2.0 03/25/17 23:47 36.8 75 16 141/79 (99) 96 Nasal Cannula 03/25/17 20:00 Nasal Cannula 2.0 03/25/17 19:57 36.7 83 20 166/65 (98) 97 Nasal Cannula 2.0 03/25/17 19:22 80 28 92 Nasal Cannula 2.0 03/25/17 18:28 37.0 82 156/61 (92) 03/25/17 18:00 68 158/49 03/25/17 17:40 75 170/61 03/25/17 17:20 73 154/66 03/25/17 17:00 79 140/64 03/25/17 16:40 71 149/59 03/25/17 16:20 76 148/64 03/25/17 16:00 73 142/55 03/25/17 15:35 72 154/70 03/25/17 15:29 37.1 73 153/68 (96) 03/25/17 15:15 70 163/79 03/25/17 15:05 69 145/67 Physical Exam: General-aaox3 Eyes-no scleral icterus ENT-mmm Neck-supple Lungs-basilar maotv-mnmrhokmu-i>r Heart-regular Abdomen-bs+ s/nt/nd Extremities-no c/c/e Neuro-nonfocal Current Inpatient Medications Medications (Trade) Dose Ordered Sig/Jacob Route Start Time Stop Time Status Last Admin Dose Admin Heparin Sodium (Porcine) (Heparin Sq 5000 Unit/0.5ml) 5,000 unit Q8 SQ 03/24/17 14:00 04/23/17 13:59 Acetaminophen (Tylenol Tab) 650 mg Q4H PRN PO 03/24/17 07:15 04/23/17 07:14 Ondansetron HCl (Zofran Inj) 4 mg Q6H PRN IV 03/24/17 07:15 04/23/17 07:14 Nitroglycerin (Nitrostat Tab) 0.4 mg UD PRN SL 03/24/17 07:15 04/23/17 07:14 Morphine Sulfate (MoRPHine SULFATE INJ) 2 mg Q30M PRN IV 03/24/17 07:15 04/07/17 07:14 Piperacillin Sod/ Tazobactam Sod (Consult) 1 ea UD PRN N/A 03/24/17 09:45 04/23/17 09:44 Amlodipine Besylate (Norvasc Tab) 5 mg QAM PO 03/24/17 09:00 04/23/17 08:59 03/26/17 13:27 5 MG Calcium Acetate (Phoslo Cap) 667 mg TIDM PO 03/24/17 11:30 04/23/17 11:59 03/26/17 13:26 667 MG Ferrous Sulfate (Feosol Tab) 325 mg BID PO 03/24/17 09:00 04/23/17 08:59 03/26/17 13:28 325 MG Hydralazine HCl (Apresoline Tab) 25 mg TID PO 03/24/17 09:00 04/23/17 08:59 03/26/17 13:28 25 MG Levothyroxine Sodium (Synthroid Tab) 75 mcg DAILYBB PO 03/24/17 09:30 04/23/17 09:29 03/26/17 05:21 75 MCG Multivitamins/ Minerals (Multivitamin W/ Minerals Tab) 1 tab QAM PO 03/24/17 09:00 04/23/17 08:59 03/26/17 13:27 1 TAB Pantoprazole Sodium (Protonix Tab) 40 mg QAM PO 03/24/17 09:00 04/23/17 08:59 03/26/17 13:26 40 MG Albuterol/ Ipratropium (Duoneb) 3 ml QIDR INH 03/24/17 12:00 04/23/17 11:59 03/26/17 10:47 3 ML Nystatin (Mycostatin Susp) 5 ml QID PO 03/24/17 09:00 04/03/17 08:59 03/26/17 13:28 5 ML Metoprolol Tartrate (Lopressor Tab) 12.5 mg BID PO 03/24/17 09:00 04/23/17 08:59 03/26/17 13:27 12.5 MG Simvastatin (Zocor Tab) 20 mg QAM PO 03/25/17 09:00 04/23/17 08:59 03/26/17 13:26 20 MG Piperacillin Sod/ Tazobactam Sod 3.375 gm/Dextrose 115 ml @ 28.75 mls/ hr Q12@0600,1800 IV 03/24/17 18:00 03/31/17 17:59 03/26/17 05:21 28.75 MLS/HR Albuterol Sulfate (Ventolin 0.083% 2.5MG/3ML Neb) 2.5 mg Q6R PRN INH 03/25/17 11:00 04/24/17 10:59 Epoetin Rc (Procrit Inj) 10,000 units TODAY@0700 IV. 03/26/17 07:00 03/26/17 18:00 03/26/17 11:30 10,000 UNITS Albumin Human (Albumin 25%) 25 gm TODAY@0700 IV 03/26/17 07:00 03/26/17 18:00 03/26/17 09:35 25 GM Doxycycline Hyclate (Vibramycin Cap) 100 mg BID PO 03/26/17 21:00 04/02/17 20:59 Last 24 Hours Test 03/26/17 05:20 White Blood Count 6.75 K/uL Red Blood Count 3.45 M/uL Hemoglobin 8.9 g/dL Hematocrit 29.2 % Mean Corpuscular Volume 84.6 fL Mean Corpuscular Hemoglobin 25.8 pg Mean Corpuscular Hemoglobin Concent 30.5 g/dl RDW Standard Deviation 57.8 fL RDW Coefficient of Variation 18.6 % Platelet Count 119 K/uL Mean Platelet Volume 9.2 fL Sodium Level 142 mmol/L Potassium Level 4.6 mmol/L Chloride Level 104 mmol/L Carbon Dioxide Level 32 mmol/L Anion Gap 6.0 mmol/L Blood Urea Nitrogen 15 mg/dl Creatinine 3.50 mg/dl Est Creatinine Clear Calc Drug Dose 12.0 ml/min Estimated GFR () 15.8 Estimated GFR (Non- 13.6 BUN/Creatinine Ratio 4.4 Random Glucose 92 mg/dl Calcium Level 8.4 mg/dl Phosphorus Level 4.1 mg/dl Magnesium Level 2.2 mg/dl Hepatitis B Surface Antigen NEG Date/Time Source Procedure Growth Status 03/26/17 13:50 Stool WBC Smear Pending Received 03/26/17 13:50 Stool Shiga Toxin Test Pending Received 03/26/17 13:50 Stool Stool Culture Pending Received 03/26/17 13:50 Stool C.difficile Toxin B Gene (PCR) Pending Received Assessment & Plan ESRD-pt had dialysis for the past three days. volume status much improved. still with rales at bases but clinically improved. plan on resting the fistula tomorrow and giving her a day off dialysis. if still here on thursday, will plan on dialysis again. ok from renal perspective to go home once medically cleared. GI-chronic diarrhea-screening for cdiff. Anemia of renal failure-hg of 8.9 on procrit. tends to get procrit resistance in setting of infection. follow hg levels. not at goal of 10 to 11. no indication for transfusion at this time. .
--- NOTE | 2017-03-26 15:49 | Progress Note ---
Medicine Progress Note Date & Time of Visit: Mar 26, 2017 at 15:36. Subjective Pt was seen and examined Sitting in bed with no distress with at bedside Pt said she feels much better she said that she does not have any left arm pain anymore Her energy feels better She would like to go home today denies any chest pain, palpitation, dizziness and palpitation Objective Last 8 Hrs Date Time Temp Pulse Resp B/P (MAP) Pulse Ox O2 Delivery O2 Flow Rate FiO2 03/26/17 15:00 70 24 96 Nasal Cannula 2.0 03/26/17 12:35 37.0 73 171/71 (104) 03/26/17 12:15 70 172/60 03/26/17 12:00 69 154/58 03/26/17 11:45 69 159/63 03/26/17 11:30 67 161/52 03/26/17 11:15 80 130/82 03/26/17 11:00 69 154/69 03/26/17 10:45 70 141/79 03/26/17 10:30 65 148/52 03/26/17 10:15 65 145/60 03/26/17 10:00 68 146/60 03/26/17 09:53 67 147/54 03/26/17 09:45 61 82/54 03/26/17 09:40 72 129/85 03/26/17 09:29 66 102/72 03/26/17 09:18 36.8 69 149/58 (88) Physical Exam: General- No acute distress Head- atraumatic Eyes- PERRL, EOMI ENT- oropharynx clear Neck- supple, no JVD Lungs- decrease breath sound, no wheezing Heart- regular rhythm Abdomen- normal bowel sounds, soft Extremities- no calf tenderness Neuro- alert, oriented x 3; PERRL, EOMI Skin- warm & dry Laboratory Results: Last 24 Hours Test 03/26/17 05:20 White Blood Count 6.75 K/uL Red Blood Count 3.45 M/uL Hemoglobin 8.9 g/dL Hematocrit 29.2 % Mean Corpuscular Volume 84.6 fL Mean Corpuscular Hemoglobin 25.8 pg Mean Corpuscular Hemoglobin Concent 30.5 g/dl RDW Standard Deviation 57.8 fL RDW Coefficient of Variation 18.6 % Platelet Count 119 K/uL Mean Platelet Volume 9.2 fL Sodium Level 142 mmol/L Potassium Level 4.6 mmol/L Chloride Level 104 mmol/L Carbon Dioxide Level 32 mmol/L Anion Gap 6.0 mmol/L Blood Urea Nitrogen 15 mg/dl Creatinine 3.50 mg/dl Est Creatinine Clear Calc Drug Dose 12.0 ml/min Estimated GFR () 15.8 Estimated GFR (Non- 13.6 BUN/Creatinine Ratio 4.4 Random Glucose 92 mg/dl Calcium Level 8.4 mg/dl Phosphorus Level 4.1 mg/dl Magnesium Level 2.2 mg/dl Hepatitis B Surface Antigen NEG Date/Time Source Procedure Growth Status 03/26/17 13:50 Stool WBC Smear Pending Received 03/26/17 13:50 Stool Shiga Toxin Test Pending Received 03/26/17 13:50 Stool Stool Culture Pending Received 03/26/17 13:50 Stool C.difficile Toxin B Gene (PCR) - Final No C. difficile toxin B gene detected Complete Assessment & Plan Chest pain Mostly atypical Need to r/o ACS due to risks factor CM are negative EKG showed no CT ischemic changes No asa was given due to allergic reaction noted on chart Continue metoprolol and statin continue monitor in telemetry Resolved HCAP S/p bronchoscopy for right lung mass a couple of weeks ago. CXR showed b/l infiltrates Starting on levaquin and zosyn to cover pseudomonas and MRSA, allergic with vanco and linezolid Blood cx no growth Continue oxygen supplement Denies any cough Might consider low dose of prednisone if wheezing continue after HD pulmonary on board Will discharge on doxycycline PO to complete abx course Hypertension SBP>200 on admission that improved with Lopressor IV and Nitro given in the ER. Continue home med BP improved Monitor BP Oral radha Continue Nystatin Diarrhea Stool for C-diff negative Continue monitor electrolytes ESRD on HD , , Sat Had HD for daily for the last 3 days Resume her regular HD on Thursday Nephro on board Anemia Due to ESRD Hgb stable DVT px On heparin subq CODE STATUS Full Code Consultants: Nephrology Pulmonary Current Inpatient Medications: Current Inpatient Medications Medications (Trade) Dose Ordered Sig/Jacob Route Start Time Stop Time Status Last Admin Dose Admin Heparin Sodium (Porcine) (Heparin Sq 5000 Unit/0.5ml) 5,000 unit Q8 SQ 03/24/17 14:00 04/23/17 13:59 Acetaminophen (Tylenol Tab) 650 mg Q4H PRN PO 03/24/17 07:15 04/23/17 07:14 Ondansetron HCl (Zofran Inj) 4 mg Q6H PRN IV 03/24/17 07:15 04/23/17 07:14 Nitroglycerin (Nitrostat Tab) 0.4 mg UD PRN SL 03/24/17 07:15 04/23/17 07:14 Morphine Sulfate (MoRPHine SULFATE INJ) 2 mg Q30M PRN IV 03/24/17 07:15 04/07/17 07:14 Piperacillin Sod/ Tazobactam Sod (Consult) 1 ea UD PRN N/A 03/24/17 09:45 04/23/17 09:44 Amlodipine Besylate (Norvasc Tab) 5 mg QAM PO 03/24/17 09:00 04/23/17 08:59 03/26/17 13:27 5 MG Calcium Acetate (Phoslo Cap) 667 mg TIDM PO 03/24/17 11:30 04/23/17 11:59 03/26/17 13:26 667 MG Ferrous Sulfate (Feosol Tab) 325 mg BID PO 03/24/17 09:00 04/23/17 08:59 03/26/17 13:28 325 MG Hydralazine HCl (Apresoline Tab) 25 mg TID PO 03/24/17 09:00 04/23/17 08:59 03/26/17 13:28 25 MG Levothyroxine Sodium (Synthroid Tab) 75 mcg DAILYBB PO 03/24/17 09:30 04/23/17 09:29 03/26/17 05:21 75 MCG Multivitamins/ Minerals (Multivitamin W/ Minerals Tab) 1 tab QAM PO 03/24/17 09:00 04/23/17 08:59 03/26/17 13:27 1 TAB Pantoprazole Sodium (Protonix Tab) 40 mg QAM PO 03/24/17 09:00 04/23/17 08:59 03/26/17 13:26 40 MG Albuterol/ Ipratropium (Duoneb) 3 ml QIDR INH 03/24/17 12:00 04/23/17 11:59 03/26/17 15:00 3 ML Nystatin (Mycostatin Susp) 5 ml QID PO 03/24/17 09:00 04/03/17 08:59 03/26/17 13:28 5 ML Metoprolol Tartrate (Lopressor Tab) 12.5 mg BID PO 03/24/17 09:00 04/23/17 08:59 03/26/17 13:27 12.5 MG Simvastatin (Zocor Tab) 20 mg QAM PO 03/25/17 09:00 04/23/17 08:59 03/26/17 13:26 20 MG Piperacillin Sod/ Tazobactam Sod 3.375 gm/Dextrose 115 ml @ 28.75 mls/ hr Q12@0600,1800 IV 03/24/17 18:00 03/31/17 17:59 03/26/17 05:21 28.75 MLS/HR Albuterol Sulfate (Ventolin 0.083% 2.5MG/3ML Neb) 2.5 mg Q6R PRN INH 03/25/17 11:00 04/24/17 10:59 Epoetin Rc (Procrit Inj) 10,000 units TODAY@0700 IV. 03/26/17 07:00 03/26/17 18:00 03/26/17 11:30 10,000 UNITS Albumin Human (Albumin 25%) 25 gm TODAY@0700 IV 03/26/17 07:00 03/26/17 18:00 03/26/17 09:35 25 GM Doxycycline Hyclate (Vibramycin Cap) 100 mg BID PO 03/26/17 21:00 04/02/17 20:59
[2017-03-26] MEDS ORDERED: DXY100 PO (16:00)
[2017-03-26] MEDS ORDERED: NYSS5 PO (16:00)
[2017-03-26] MEDS ORDERED: LPR25 PO (16:00)
[2017-03-26] MEDS ORDERED: IPRASOL4 INH (16:00)
--- NOTE | 2017-03-26 16:13 | Discharge Instructions ---
Discharge Instructions Date of Service Mar 26, 2017. Admission Reason for Admission: Atypical Chest Pain Discharge Discharge Diagnosis / Problem: Pneumonia, Hypertension, ESRD, Diarrhea Discharge Goals Goal(s): Decrease discomfort, Improve function, Improve disease control Activity Recommendations Activity Limitations: resume your previous activity (as tolerated) . Instructions / Follow-Up Instructions / Follow-Up Follow up appointment with your primary care provider Dr. Barnes on 03/30 @ 9 :25 am Your Next dialysis day will be this Thursday Complete antibiotic course with doxycycline Fall precaution Continue oxygen supplement daily Monitor Blood Pressure Current Hospital Diet Patient's current hospital diet: AHA Diet (Heart Healthy), Renal Diet Discharge Diet Recommended Diet: AHA Diet (Heart Healthy), Renal Diet Pending Studies Studies pending at discharge: yes List of pending studies: stools for shiga toxin and wbc Medical Emergencies . Who to Call and When: Medical Emergencies: If at any time you feel your situation is an emergency, please call 911 immediately. . Non-Emergent Contact Non-Emergency issues call your: Primary Care Provider Call Non-Emergent contact if: you have a fever, you have any medication questions . . "Provider Documentation" section prepared by Ronaldo Borjas. . VTE Core Measure Inpt VTE Proph given/why not?: Unfractionated heparin SQ
[2017-03-26] MEDS ORDERED: DOXYCYCLINE HYCLATE 100 MG CAP PO SCH (21:00)
--- NOTE | 2017-03-28 23:58 | Discharge Summary ---
Discharge Summary Date of Service Mar 28, 2017. Discharge Summary Admission Date: Mar 25, 2017 at 11:44 Discharge Date: Mar 26, 2017 Discharge Disposition: Home Principal Diagnosis: Chest Pain Secondary Diagnoses/Problems: Pneumonia Hypertension ESRD Diarrhea Oral radha Anemia Procedures: CHEST ONE VIEW PORTABLE HISTORY: 57 years Female CHEST PAIN COMPARISON: 03/06/2017 chest radiograph, chest CT 01/28/2017 TECHNIQUE: Portable upright AP view of the chest FINDINGS: Cardiac silhouette is again enlarged. There is atherosclerosis of the aorta. There is pulmonary vascular congestion with background reticulation and right greater than left bibasilar alveolar opacities with blunting of the costophrenic angles. The bibasilar opacities have slightly progressed from comparison and become more confluent. The masslike opacity seen on the prior study is not as apparent however is again seen, 1.9 x 3.5 cm likely correlating with focal groundglass opacity on comparison chest CT which measured 2.7 x 2.4 cm. Stent graft of the left axillary region is seen. The bones appear grossly intact. IMPRESSION: 1. Cardiomegaly with mild pulmonary edema pattern and small bilateral pleural effusions. 2. Bibasilar alveolar opacities may reflect atelectasis or pneumonia. 3. Focal masslike opacity of the right lung base likely correlates with 2.7 cm groundglass opacity seen on comparison chest CT dated 01/28/2017. This appears slightly smaller than comparison chest radiograph. Close follow-up is needed. The above report was generated using voice recognition software. It may contain grammatical, syntax or spelling errors. Electronically signed by: Case Plunkett M.D. 03/24/2017 6:30 AM Dictated Date/Time: 03/24/2017 6:26 AM Consultations: Nephrology Pulmonary Medication Reconciliation New Medications: Doxycycline Hyclate (Doxycycline Hyclate) 100 Mg Cap 100 MG PO BID for 5 Days, #10 CAP Ipratropium-Albuterol (Duoneb) 3 Ml Nebu 3 ML INH QIDR PRN for SOB/Wheezing for 7 Days Metoprolol Tartrate (Lopressor) 25 Mg Tab 12.5 MG PO BID for 30 Days, #30 TAB Nystatin (Nystatin) 5 Ml Susp 5 ML PO QID for 5 Days Continued Medications: Albuterol Sulf (Albuterol Sulfate) 2.5 Mg/0.5 Ml Nebu 1 VIAL NEB Q6 PRN for Shortness of Breath Amlodipine (Norvasc) 5 Mg Tab 5 MG PO QAM Calcium Acetate (Phoslo 667 Mg) 667 Mg Cap 1 CAP PO DAILY WITH MEALS, CAP Ferrous Sulfate (Ferrous Sulfate) 325 Mg Tab 1 TAB PO BID, #120 Home O2 Therapy (Oxygen) Gas 2 LITERS NA UD PRN for COPD Hydralazine HCl (Hydralazine HCl) 25 Mg Tab 1 TAB PO TID Levothyroxine Sodium (Levothyroxine Sodium) 75 Mcg Tab 75 MCG PO QAM Multiple Vitamins W/ Minerals (Prorenal Qd) 1 Cap Cap 1 TAB PO QAM Ondansetron Hcl (Zofran) 4 Mg Tab 4 MG PO Q6 PRN for Nausea, TAB Pantoprazole (Protonix) 20 Mg Tab 20 MG PO QAM, #30 TAB Simvastatin (Zocor) 20 Mg Tab 20 MG PO QAM Admission Information HPI (per Admitting provider): 57 yo F presents today with chest and L arm discomfort since last night. She reports sleeping (not on this arm) and felt this pain come on. The pain is described as strong. She reports numbness in her fingers and states that her chest feels funny with ?palpitations. She reports a productive cough more over the last 2 days, but has been coughing since prior to her brochoscopy recently performed as an outpatient. She states she has mucous and blood coming up on occasion. She denies any fevers or chills but has chronic hot flashes. ROS also reveals some nausea without vomiting, no blood per rectum, +ALEXANDER in her R eye that is intermittent. She denies dysuria or UTI symptoms. She denies weight gain or swelling but does have a h/o cardiomyopathy with orthopnea and PND. She has a h/o LHC with nonobstructive CAD. Physical Exam (per Admitting): GEN: thin, frail, in no acute distress, alert and appropriate HEENT: NC/AT, PERRL, normal sclerae, MMM, tongue covered in a whitish substance CARDIO: tachy rate, 3/6 RJ heard at LUSB LUNGS: coarse rhonchi throughout ABD: soft, non-tender, non-distended, no rebound or guarding, +BS EXTREMITY: RP and DP palpable 2+ bilat, no LE swelling or edema, extremities are warm and well-perfused, fistula in LUE NEURO: CN 2-12 grossly intact, sensation intact throughout MUSC: 5/5 strength throughout, moves all extremities equally SKIN: warm and dry Hospital Course Chest pain Mostly atypical Need to r/o ACS due to risks factor CM are negative EKG showed no CT ischemic changes No asa was given due to allergic reaction noted on chart Continue metoprolol and statin continue monitor in telemetry Resolved HCAP S/p bronchoscopy for right lung mass a couple of weeks ago. CXR showed b/l infiltrates Starting on levaquin and zosyn to cover pseudomonas and MRSA, allergic with vanco and linezolid Blood cx no growth Continue oxygen supplement Denies any cough Might consider low dose of prednisone if wheezing continue after HD pulmonary on board Will discharge on doxycycline PO to complete abx course Hypertension SBP>200 on admission that improved with Lopressor IV and Nitro given in the ER. Continue home med BP improved Monitor BP Oral radha Continue Nystatin Diarrhea Stool for C-diff negative Continue monitor electrolytes ESRD on HD , , Sat Had HD for daily for the last 3 days Resume her regular HD on Thursday Nephro on board Anemia Due to ESRD Hgb stable DVT px On heparin subq CODE STATUS Full Code Total time spent on discharge = 35 minutes This includes examination of the patient, discharge planning, medication reconciliation, and communication with other providers. Discharge Instructions Discharge Instructions Date of Service Mar 26, 2017. Admission Reason for Admission: Atypical Chest Pain Discharge Discharge Diagnosis / Problem: Pneumonia, Hypertension, ESRD, Diarrhea Discharge Goals Goal(s): Decrease discomfort, Improve function, Improve disease control Activity Recommendations Activity Limitations: resume your previous activity (as tolerated) . Instructions / Follow-Up Instructions / Follow-Up Follow up appointment with your primary care provider Dr. Barnes on 03/30 @ 9 :25 am Your Next dialysis day will be this Thursday Complete antibiotic course with doxycycline Fall precaution Continue oxygen supplement daily Monitor Blood Pressure Current Hospital Diet Patient's current hospital diet: AHA Diet (Heart Healthy), Renal Diet Discharge Diet Recommended Diet: AHA Diet (Heart Healthy), Renal Diet Pending Studies Studies pending at discharge: yes List of pending studies: stools for shiga toxin and wbc Medical Emergencies . Who to Call and When: Medical Emergencies: If at any time you feel your situation is an emergency, please call 911 immediately. . Non-Emergent Contact Non-Emergency issues call your: Primary Care Provider Call Non-Emergent contact if: you have a fever, you have any medication questions . . "Provider Documentation" section prepared by Ronaldo Borjas. . VTE Core Measure Inpt VTE Proph given/why not?: Unfractionated heparin SQ Additional Copies To César Barnes M.D.
== END 2017-03-26 17:00 | disposition home or self-care (01) | DRG 190 ==
LOC: C.EDB 04:18 → C.2E 07:13 → ENRESERV 07:35 → OBSVTOIN 03-25 11:44
PROVIDERS: ADMIT Hospitalist; ATTEND Internal Medicine
DX: J44.0 Chronic obstructive pulmonary disease with (acute) lower respiratory infection (principal); J15.1 Pneumonia due to Pseudomonas; N18.6 End stage renal disease; I13.2 Hypertensive heart and chronic kidney disease with heart failure and with stage 5 chronic kidney disease, or end stage renal disease; I50.32 Chronic diastolic (congestive) heart failure; J96.11 Chronic respiratory failure with hypoxia; I42.9 Cardiomyopathy, unspecified; J84.9 Interstitial pulmonary disease, unspecified; B37.0 Candidal stomatitis; Y95 Nosocomial condition; D63.1 Anemia in chronic kidney disease; I25.10 Atherosclerotic heart disease of native coronary artery without angina pectoris; E78.5 Hyperlipidemia, unspecified; J44.9 Chronic obstructive pulmonary disease, unspecified; K21.9 Gastro-esophageal reflux disease without esophagitis; E04.9 Nontoxic goiter, unspecified; E89.0 Postprocedural hypothyroidism; I73.9 Peripheral vascular disease, unspecified; K31.84 Gastroparesis; D69.6 Thrombocytopenia, unspecified; R19.7 Diarrhea, unspecified; Z90.12 Acquired absence of left breast and nipple; Z85.3 Personal history of malignant neoplasm of breast; Z82.3 Family history of stroke; Z80.3 Family history of malignant neoplasm of breast; Z87.891 Personal history of nicotine dependence; Z88.6 Allergy status to analgesic agent; Z88.8 Allergy status to other drugs, medicaments and biological substances; Z79.899 Other long term (current) drug therapy; Z99.81 Dependence on supplemental oxygen

== ENCOUNTER 2020-06-28 08:37 | Inpatient (IN) ==
[2020-06-28] MEDS ORDERED: ONDANSETRON INJ 2 MG/ML 2 ML VIAL IV STA (08:58)
[2020-06-28] MEDS ORDERED: HYDROmorphone INJ 0.5 MG/0.5 ML SYR IV STA (08:58)
--- NOTE | 2020-06-28 08:59 | Emergency Department Note ---
History of Present Illness General Chief complaint: Abdominal Pain Stated complaint: SEVERE PAIN ABD Time Seen by Provider: 06/28/20 08:43 History of Present Illness Maximum Pain Intensity: 10 This is a 60-year-old female that presents to the emergency department via private vehicle accompanied by with complaints of "severe abdominal pain". The patient states that she had surgery earlier this month on the she had a polypectomy and then cholecystectomy on the of this month. She notes that since that time she has been experiencing right lower abdominal discomfort that has been worsening since that time. She notes that she went to dialysis today and states that the discomfort is worse therefore prompting arrival here today. Over the past few days now she notes that she has been vomiting of liquids and medication and cannot keep anything down. She notes she did not sleep last night. She denies any fevers or chills. She does feel hot/cold at times. No reported trauma or injury. Home Medications Home Medications Medication Instructions Recorded Confirmed Type albuterol sulfate 2.5 mg INHALATION DIRECTED PRN 11/02/18 06/28/20 History calcium acetate(phosphat bind) 667 mg PO TIDM 11/02/18 06/28/20 History hydralazine 25 mg PO TID 11/02/18 06/28/20 History levothyroxine 75 mcg PO QAM 11/02/18 06/28/20 History simvastatin 20 mg PO HS 11/02/18 06/28/20 History amlodipine 10 mg PO QAM 07/14/19 06/28/20 History pantoprazole 40 mg PO QAM 07/14/19 06/28/20 History metoprolol succinate 25 mg PO BID 11/19/19 06/28/20 History Allergies Allergy/AdvReac Type Severity Reaction Status Date / Time atropine Allergy Severe Dyspnea Verified 06/28/20 10:13 linezolid Allergy Severe Thrombocyto Verified 06/28/20 10:13 penia naproxen Allergy Severe Facial Verified 06/28/20 10:13 edema dipyridamole Allergy Intermediate "Bad Verified 06/28/20 10:13 reaction" per records vancomycin Allergy Intermediate Rash/tommy Verified 06/28/20 10:13 syndrome aspirin AdvReac Intermediate Abdominal Verified 06/28/20 10:13 cramping Past Med/Surg History Medical History Anemia of chronic renal failure AV fistula LUE Breast cancer s/p chemo/xrt CAD (coronary artery disease) widely patent coronary anatomy with only minor luminal irregularities suggesting mild CAD per 2014 cardiac cath Cirrhosis per records COPD (chronic obstructive pulmonary disease) ESRD (end stage renal disease) dialysis Thursday//Thursday ([place]) GERD (gastroesophageal reflux disease) Hyperlipidemia Hypertension Hypothyroidism Lung cancer dx 06/2019 s/p xrt Non-ischemic cardiomyopathy On home oxygen therapy 2L O2 HS Thrombocytopenia chronic Surgical History H/O partial thyroidectomy GOITER History of bronchoscopy History of cardiac cath 2013- NO STENTS History of colonoscopy History of esophagogastroduodenoscopy (EGD) History of tooth extraction Hx of lumpectomy LEFT S/P arteriovenous (AV) fistula creation Family History Other Family history non-contributory No family history of adverse response to anesthesia Social History Smoking Status: Former smoker Tobacco Type: Cigarettes Second Hand Exposure: Yes (parents smoked); Hx Alcohol Use: No Hx Substance Use: No Preferred Language: Azeri Communication Ability: Effective 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 Beliefs That Will Affect Care: None marital status: Current Living Situation: Spouse current occupational status: disabled Other Information That Helps Us Care for You: No Feels Safe at Home: Yes Safety Concerns: Feels Safe At This Time Assistive Devices: Oxygen - at Night Review of Systems A total of 10 systems reviewed and were otherwise negative Physical Exam Vital Signs Vital Signs - 24 hr 06/28/20 08:42 06/28/20 10:35 Temperature 36.5 C Temperature Source Oral Pulse Rate 87 Pulse Rate [Right Finger] 78 Pulse Rhythm Regular Pulse Strength Normal Respiratory Rate 20 18 Respiratory Effort / Characteristics Non-Labored Non-Labored Spontaneous Respiratory Depth Normal Normal Respiratory Pattern Regular Regular Blood Pressure 146/68 H Blood Pressure [Right Arm] 138/71 Blood Pressure Mean 94 Blood Pressure Mean [Right Arm] 93 Blood Pressure Position Sitting Blood Pressure Position [Right Arm] Lying Pulse Oximetry 97 96 Oxygen Delivery Method Room Air Room Air Sepsis Recent Fever Within 48 Hours No Sepsis New/Unexplained Change in Mental Status No Sepsis Action Taken by Nursing No Action Required VITAL SIGNS - Vital signs and nursing notes were reviewed. Stable and afebrile. GENERAL -60-year-old female appearing her stated age who is in no acute distress. Communicates well with provider and answers questions appropriately. SKIN - Without rashes. No meningeal or petechial rash. HEAD - NC/AT. EYES - PERRL with EOMI bilaterally. Sclera anicteric. NECK - Neck with FROM.No nuchal rigidity. LUNGS - Chest wall symmetric without accessory muscle use, intercostals retractions, or central cyanosis. Normal vesicular breath sounds CTA B/L. No wheezes, rales, or rhonchi appreciated. CARDIAC - RRR with S1/S2. No murmur, rubs, or gallops appreciated. ABDOMEN - Abdominal contour normal without pulsations or visible masses. The incisions appear to be well-healed with some residual Dermabond/Steri-Strips in place. No dehiscence. No drainage. No erythema. BS normoactive all four quadrants. Right lower quadrant abdominal tenderness to palpation. The abdomen is nonrigid. EXTREMITIES - No clubbing or peripheral cyanosis. Fistula in place for dialysis. No drainage. +5/5 strength noted in UE/LE bilaterally. NEUROLOGIC - Cranial nerves II through XII grossly intact. Sensory intact to light touch throughout. PSYCH - A&O, and cooperates fully with examiner. Pt is very pleasant and interacts well with examiner. Course Administered Medications Acetaminophen (Acetaminophen 500 Mg Tab) 500 mg PO Q6H PRN PRN Reason: pain Stop: 07/28/20 16:13 Last Admin: 06/29/20 09:32 Dose: 500 mg Documented by: [id number] Amlodipine Besylate (Amlodipine Besylate 5 Mg Tab) 10 mg PO QAM [facility] Stop: 07/29/20 08:59 Last Admin: 06/29/20 08:50 Dose: 10 mg Documented by: [id number] Calcium Acetate (Calcium Acetate 667 Mg Cap/Tab) 667 mg PO TIDM [facility] Stop: 07/28/20 16:59 Last Admin: 06/29/20 13:38 Dose: 667 mg Documented by: [id number] Admin: 06/29/20 08:20 Dose: 667 mg Documented by: [id number] Admin: 06/28/20 20:57 Dose: 667 mg Documented by: [id number] Hydralazine HCl (Hydralazine Hcl 25 Mg Tab) 25 mg PO TID [facility] Stop: 07/28/20 16:13 Last Admin: 06/29/20 13:38 Dose: 25 mg Documented by: [id number] Admin: 06/29/20 08:21 Dose: 25 mg Documented by: [id number] Admin: 06/28/20 21:12 Dose: Not Given Documented by: [id number] Admin: 06/28/20 20:57 Dose: 25 mg Documented by: [id number] Promethazine HCl 12.5 mg/ (Sodium Chloride) 50.5 mls @ 202 mls/hr IV Q6H PRN PRN Reason: Nausea And Vomiting Stop: 07/28/20 16:13 Last Infusion: 06/29/20 09:20 Dose: 0 mls/hr Documented by: [id number] Admin: 06/29/20 08:20 Dose: 202 mls/hr Documented by: [id number] Infusion: 06/29/20 00:40 Dose: 0 mls/hr Documented by: [id number] Admin: 06/29/20 00:22 Dose: 202 mls/hr Documented by: [id number] Levothyroxine Sodium (Levothyroxine Sodium 75 Mcg Tablet) 75 mcg PO DAILYBB [facility] Stop: 07/29/20 06:29 Last Admin: 06/29/20 06:09 Dose: 75 mcg Documented by: [id number] Metoprolol Succinate (Metoprolol Succ 25mg Ext Rel Tab) 25 mg PO BID [facility] Stop: 07/29/20 01:59 Last Admin: 06/29/20 02:40 Dose: 25 mg Documented by: [id number] Pantoprazole Sodium (Pantoprazole 40 Mg Tab) 40 mg PO QAM [facility] Stop: 07/29/20 08:59 Last Admin: 06/29/20 08:20 Dose: 40 mg Documented by: [id number] Simvastatin (Simvastatin 20 Mg Tab) 20 mg PO HS [facility] Stop: 07/28/20 20:59 Last Admin: 06/28/20 20:58 Dose: 20 mg Documented by: [id number] Discontinued Medications Hydromorphone HCl (Hydromorphone Inj 0.5 Mg/0.5 Ml Syr) 0.25 mg IV NOW STA Stop: 06/28/20 08:59 Last Admin: 06/28/20 09:22 Dose: 0.25 mg Documented by: [id number] Metoprolol Succinate (Metoprolol Succ 25mg Ext Rel Tab) 25 mg PO BID [facility] Stop: 07/28/20 20:59 Last Admin: 06/28/20 20:58 Dose: 25 mg Documented by: [id number] Ondansetron HCl (Ondansetron Inj 2 Mg/Ml 2 Ml Vial) 4 mg IV NOW STA Stop: 06/28/20 08:59 Last Admin: 06/28/20 09:22 Dose: 4 mg Documented by: [id number] Oxycodone HCl (Oxycodone Hcl Ir 5 Mg Tab (Immediate Release)) 5 mg PO NOW STA Stop: 06/28/20 12:03 Last Admin: 06/28/20 13:01 Dose: 5 mg Documented by: [id number] Potassium Chloride (Potassium Chloride 10 Meq Tabcr) 50 meq PO NOW STA Stop: 06/29/20 03:15 Last Admin: 06/29/20 04:07 Dose: 50 meq Documented by: [id number] Medical Decision Making Laboratory Data Result diagrams: 06/29/20 02:12 06/29/20 02:12 Lab Results 06/28/20 06/28/20 Range/Units 09:08 09:18 WBC 5.12 (4.8-10.8) K/uL RBC 4.32 (4.2-5.4) M/uL Hgb 11.0 L (12.0-16.0) g/dL Hct 36.6 L (37-47) % MCV 84.7 (80-100) fL MCH 25.5 (25-34) pg MCHC 30.1 L (32-36) g/dL RDW Std Deviation 55.1 H (36.4-46.3) fL RDW Coeff of Dave 17.9 H (11.5-14.5) % Plt Count 90 L (130-400) K/uL MPV 9.5 (7.4-10.4) fL Immature Gran % (Auto) 0.6 % Neut % (Auto) 82.0 % Lymph % (Auto) 7.4 % Mitchell % (Auto) 9.8 % Eos % (Auto) 0.0 % Baso % (Auto) 0.2 % Neut # (Auto) 4.20 (1.4-6.5) K/uL Lymph # (Auto) 0.38 L (1.2-3.4) K/uL Mitchell # (Auto) 0.50 (0.11-0.59) K/uL Eos # (Auto) 0.00 (0-0.5) K/uL Baso # (Auto) 0.01 (0-0.2) K/uL Immature Gran # (Auto) 0.03 H (0.00-0.02) K/uL Polychromasia 1+ Sodium 140 (136-145) mmol/L Potassium 2.5 L* (3.5-5.1) mmol/L Chloride 102 (98-107) mmol/L Carbon Dioxide 33 H (21-32) mmol/L Anion Gap 5.0 (3-11) BUN 5 L (7-18) mg/dl Creatinine 2.66 H (0.6-1.2) mg/dl Est Cr Clr Drug Dosing 15.3 ml/min Est GFR ( Amer) 21.6 Est GFR (Non-Af Amer) 18.6 BUN/Creatinine Ratio 1.7 L (10-20) Glucose 95 (70-99) mg/dl Calcium 7.9 L (8.5-10.1) mg/dl Total Bilirubin 1.2 H (0.2-1) mg/dl AST 18 (15-37) U/L ALT 7 L (12-78) U/L Alkaline Phosphatase 147 H (45-117) U/L Total Protein 6.6 (6.4-8.2) gm/dl Albumin 2.8 L (3.4-5.0) gm/dl Globulin 3.8 (2.5-4.0) gm/dl Albumin/Globulin Ratio 0.7 L (0.9-2) Imaging Data Radiologist's Impression: CT SCAN OF THE ABDOMEN AND PELVIS WITHOUT IV CONTRAST CLINICAL HISTORY: Right lower quadrant abdominal pain. COMPARISON STUDY: Abdominal CT dated 06/21/2016. TECHNIQUE: CT scan of the abdomen and pelvis is performed from the lung bases to the proximal femora. Images are reviewed in the axial, sagittal, and coronal planes. IV contrast was not administered for this examination. Note that the examination was performed in suboptimal fashion without oral and IV contrast. A dose lowering technique was utilized adhering to the principles of ALARA. FINDINGS: Lung bases: The heart is enlarged noting a small pericardial effusion. The coronary arteries are densely calcified. There is a small hiatal hernia. There is hyperdense atelectasis/consolidation in the right middle lobe. Dependent hyperdense subpleural consolidation is seen in the left lower lobe. Postoperative change is seen at the anterior left lung base. Intralobular septal thickening with groundglass change is present at both lung bases. Trace pleural effusion is noted on the left. Liver: The unenhanced liver is cirrhotic in morphology and heterogeneous in attenuation. There is nodularity of the hepatic surface contour and hypertrophy of the left lobe. There is no intrahepatic biliary ductal dilatation. Gallbladder: Surgically absent noting clips in the gallbladder fossa. Spleen: The spleen is enlarged, measuring 15.2 cm in length. Numerous low- attenuation lesions are again seen throughout the spleen. Pancreas: The unenhanced pancreas is grossly unremarkable. Adrenal glands: Unremarkable. Kidneys: The unenhanced kidneys are markedly atrophic and without hydronephrosis. There are no renal calculi identified. Simple and complex cysts in both kidneys measure up to 10 mm.. Abdominal vasculature: There is advanced atherosclerotic calcification and ectasia of the abdominal aorta. Patency cannot be assessed on this unenhanced examination. Bowel: There is no bowel obstruction. Submucosal fat deposition is seen throughout the colon. Metallic foreign body or surgical clip is noted in the cecum. The appendix is well-visualized and normal. Peritoneum: No intraperitoneal free air is seen. There is a small volume of abdominopelvic ascites. There is a small fat-containing umbilical hernia with periumbilical infiltration. Lymphadenopathy: None. Pelvic viscera: The bladder is decompressed and cannot be evaluated. The uterus and adnexa are normal as visualized. A right inguinal hernia contains ascitic fluid. Skeletal structures: The skeletal structures are osteopenic. There is mild lumbosacral spondylosis. No lytic or blastic lesions are seen. IMPRESSION: 1. No acute infectious or inflammatory findings are identified in the abdomen or pelvis. 2. Chronic and postoperative parenchymal changes are again seen at both lung bases with foci of hyperdense consolidation, groundglass change, and trace left pleural effusion. Clinical correlation will be required. 3. Cardiomegaly. 4. Cirrhotic liver morphology. 5. The spleen is enlarged and there are numerous low-attenuation splenic lesio ns. This is similar to prior studies. 6. The kidneys are markedly atrophic. 7. Small volume of abdominopelvic ascites. 8. Additional findings as above. ACT 112: Negative or not required by law. Electronically signed by: Fortunato Morris M.D. 06/28/2020 10:49 AM MDM Narrative Patient was seen and evaluated as above in room C2. Review was performed of nursing notes and vital signs. The patient has an extensive and quite complex past medical history upon review. I did review pertinent previous visits and patient history. After obtaining a thorough history and physical examination the above work up was performed. She presents to us today with right lower quadrant abdominal pain since earlier this month when she underwent polypectomy/c holecystectomy now with nausea/vomiting over the past few days. She is unable to tolerate p.o. fluids/liquid/meds at home. She is concerned about this therefore prompting arrival here. She just finished dialysis of which she participates in Thursday, and Thursday and then came here. IV access was established. Labs were drawn. Vital signs are stable. There is anemia noted without any significant leukocytosis. There is hypokalemia noted but certainly this could be secondary to very recent dialysis. Creatinine also consistent with dialysis. I discussed the presentation with the attending physician as well as the patient's research quality assurance specialist, Dr. Marr. We discussed how the patient's potassium is expected to be that low post recent dialysis noting that it was about 2 hours ago. This is expected to return towards baseline as time progresses. I obtained a CT scan of the abdomen and pelvis. No acute infectious or inflammatory findings are identified. I will note that there was a delay in receiving the images for this as reportedly the text box within the order for the CT had too many words and therefore caused the [employer] system to malfunction. Upon receiving the report I discussed this with the patient. She was medicated here with antiemetics. She was also given analgesics. Options of care were discussed with patient and although at this time there is no emergent abdominal finding on examination or by CT given her inability to tolerate p.o. at home and patient's concern is being able tolerate her meds I do believe that it be reasonable to discuss this with the hospitalist for further evaluation and management. I discussed this with the hospitalist and she will be admitted for further evaluation and management. Please refer to further documentation re garding her stay. Case was discussed with the attending physician. GCS: 15 In the evaluation and treatment of this patient the following differential diagnoses were entertained: Acute abdomen, postoperative infection, bile leak, sepsis, pneumonia, DE, PE, obstruction, among others. Impression & Plan Nausea & vomiting, Abdominal pain, acute, right lower quadrant Discharge Plan Visit Data Chief Complaint: Abdominal Pain Stated Complaint: SEVERE PAIN ABD ED Provider: Kem Alcantara ED Midlevel Provider: Donny Ross Discharge Problem: Nausea & vomiting, Abdominal pain, acute, right lower quadrant Patient Disposition: Admitted As Inpatient Discharge Instructions Interventions: ED Discharge Assessment Last Done: 06/28/20 15:47
[2020-06-28 09:46] LABS: Basophils # (auto) 0.01 K/uL (0-0.2); Basophils % (auto) 0.2 %; Hematocrit (blood only) 36.6 % (37-47); Immature Granulocytes # (auto) 0.03 K/uL (0.00-0.02); Immature Granulocytes % (auto) 0.6 %; Lymphocytes # (auto) 0.38 K/uL (1.2-3.4); Lymphocytes % (auto) 7.4 %; Mean Corpuscular Hemoglobin 25.5 pg (25-34); Mean Corpuscular Hgb Conc 30.1 g/dL (32-36); Mean Corpuscular Volume 84.7 fL (80-100); Mean Platelet Volume 9.5 fL (7.4-10.4); Monocytes % (auto) 9.8 %; Platelet Count 90 K/uL (130-400); Polychromasia 1+; RDW Coefficient of Variation 17.9 % (11.5-14.5); RDW Standard Deviation 55.1 fL (36.4-46.3); Red Blood Count 4.32 M/uL (4.2-5.4); White Blood Count 5.12 K/uL (4.8-10.8)
[2020-06-28 09:50] LABS: Albumin Globulin Ratio 0.7 (0.9-2); Albumin Level 2.8 gm/dl (3.4-5.0); BUN Creatinine Ratio 1.7 (10-20); Bilirubin,Total 1.2 mg/dl (0.2-1); Calcium 7.9 mg/dl (8.5-10.1); Creatinine Clr Calc Pharmacy 15.3 ml/min; Est GFR (African American) 21.6; Est GFR (Non-African American) 18.6; Globulin 3.8 gm/dl (2.5-4.0); Potassium 2.5 mmol/L (3.5-5.1); Total Protein 6.6 gm/dl (6.4-8.2)
--- NOTE | 2020-06-28 10:51 | CT Scan Report ---
CT SCAN OF THE ABDOMEN AND PELVIS WITHOUT IV CONTRAST CLINICAL HISTORY: Right lower quadrant abdominal pain. COMPARISON STUDY: Abdominal CT dated 06/21/2016. TECHNIQUE: CT scan of the abdomen and pelvis is performed from the lung bases to the proximal femora. Images are reviewed in the axial, sagittal, and coronal planes. IV contrast was not administered for this examination. Note that the examination was performed in suboptimal fashion without oral and IV contrast. A dose lowering technique was utilized adhering to the principles of ALARA. FINDINGS: Lung bases: The heart is enlarged noting a small pericardial effusion. The coronary arteries are dens arin calcified. There is a small hiatal hernia. There is hyperdense atelectasis/consolidation in the r ight middle lobe. Dependent hyperdense subpleural consolidation is seen in the left lower lobe. Posto perative change is seen at the anterior left lung base. Intralobular septal thickening with groundgla ss change is present at both lung bases. Trace pleural effusion is noted on the left. Liver: The unenhanced liver is cirrhotic in morphology and heterogeneous in attenuation. There is nod ularity of the hepatic surface contour and hypertrophy of the left lobe. There is no intrahepatic will iary ductal dilatation. Gallbladder: Surgically absent noting clips in the gallbladder fossa. Spleen: The spleen is enlarged, measuring 15.2 cm in length. Numerous low-attenuation lesions are aga in seen throughout the spleen. Pancreas: The unenhanced pancreas is grossly unremarkable. Adrenal glands: Unremarkable. Kidneys: The unenhanced kidneys are markedly atrophic and without hydronephrosis. There are no renal calculi identified. Simple and complex cysts in both kidneys measure up to 10 mm.. Abdominal vasculature: There is advanced atherosclerotic calcification and ectasia of the abdominal a nicole. Patency cannot be assessed on this unenhanced examination. Bowel: There is no bowel obstruction. Submucosal fat deposition is seen throughout the colon. Metalli c foreign body or surgical clip is noted in the cecum. The appendix is well-visualized and normal. Peritoneum: No intraperitoneal free air is seen. There is a small volume of abdominopelvic ascites. T here is a small fat-containing umbilical hernia with periumbilical infiltration. Lymphadenopathy: None. Pelvic viscera: The bladder is decompressed and cannot be evaluated. The uterus and adnexa are normal as visualized. A right inguinal hernia contains ascitic fluid. Skeletal structures: The skeletal structures are osteopenic. There is mild lumbosacral spondylosis. N o lytic or blastic lesions are seen. IMPRESSION: 1. No acute infectious or inflammatory findings are identified in the abdomen or pelvis. 2. Chronic and postoperative parenchymal changes are again seen at both lung bases with foci of hyper dense consolidation, groundglass change, and trace left pleural effusion. Clinical correlation will b e required. 3. Cardiomegaly. 4. Cirrhotic liver morphology. 5. The spleen is enlarged and there are numerous low-attenuation splenic lesions. This is similar to prior studies. 6. The kidneys are markedly atrophic. 7. Small volume of abdominopelvic ascites. 8. Additional findings as above. ACT 112: Negative or not required by law. Electronically signed by: Fortunato Morris M.D. 06/28/2020 10:49 AM
[2020-06-28] MEDS ORDERED: oxyCODONE HCL IR 5 MG TAB (IMMEDIATE RELEASE) PO STA (12:02)
--- NOTE | 2020-06-28 13:24 | History & Physical Report ---
Date of Service June 28, 2020 Assessment & Plan (1) Nausea & vomiting: Admission and Anticipated Discharge Date Admission Date: 60-year-old female with history of ESRD, liver cirrhosis, gastroparesis, irritable bowel syndrome, GERD, COPD, CAD, nonischemic car diomyopathy, hypertension, Problems noted below presenting with persistent nausea and vomiting with right lower quadrant pain times few days. Persistent nausea and vomiting, recent laparoscopically cystectomy 06/18/2020 Recent EGD, ERCP revealing gastric polyps status post resection 06/15/2020 --Possible gastroparesis flareup? --CT abdomen pelvis: No acute process, no obstruction --Phenergan every 6 hours as needed, tramadol 12 hours as needed N.p.o. except medications and ice chips, sips of water --GI and general surgery consult --Continue usual Protonix and sucralfate for history of GERD Diarrhea --Patient reports 2-3 loose bowel movements per day --Check stool cultures and C. difficile ESRD --Consult nephrology for HD management Liver cirrhosis --Compensated History of CAD, nonischemic cardiomyopathy --Cardiac symptoms, euvolemic --Continue metoprolol, simvastatin Hypertension --Stable, continue hydralazine 3 times daily COPD, interstitial lung disease --Respiratory status stable DVT prophylaxis --SCDs CODE STATUS --Full code per patient Disposition --lives with family at home Anticipate discharge to home medically stable History of Present Illness 60-year-old female with history of end-stage renal disease, liver cirrhosis, gastroparesis, irritable bowel syndrome, GERD, COPD, CAD, ischemic cardiomyopathy, hypertension, other problems noted below presenting with persistent nausea and vomiting associated with right lower quadrant pain times a few days. This month, patient had an EGD and ERCP performed for epigastric pain by Dr. Vignesh Paulson, which revealed gastric polyps status post resection and biliary sludge. She subsequently underwent laparoscopic cholecystectomy by Dr. Donato Molina last June 18, 2020. As per patient, she stayed on a soft/liquid diet at least 1 week after the surgery and was doing well at that time. When she started to advance her diet to solid foods, the patient started to have nausea and was vomiting her food after she eats. Occasionally, patient would also vomit her pills. This is associated with persistent right lower quadrant pain and at least 2 loose stools per day. She denies fevers or chills, pain, shortness of breath, palpitations, dizziness. Last night, the patient had nausea and vomited her pills. At the ER, patient was received with stable vital signs. CT abdomen pelvis did not reveal any acute process, no obstruction, no fluid collection noted. Patient was given Zofran with relief of symptoms. Exam, the patient was seen resting in bed, not in distress, comfortable. Reports mild to moderate right lower quadrant pain, but no active nausea during my exam. No other symptoms Primary Care Provider: César Barnes MD Allergies Allergy/AdvReac Type Severity Reaction Status Date / Time atropine Allergy Severe Dyspnea Verified 06/28/20 10:13 linezolid Allergy Severe Thrombocyto Verified 06/28/20 10:13 penia naproxen Allergy Severe Facial Verified 06/28/20 10:13 edema dipyridamole Allergy Intermediate "Bad Verified 06/28/20 10:13 reaction" per records vancomycin Allergy Intermediate Rash/tommy Verified 06/28/20 10:13 syndrome aspirin AdvReac Intermediate Abdominal Verified 06/28/20 10:13 cramping Home Medications Home Medications Medication Instructions Recorded Confirmed Type albuterol sulfate 2.5 mg INHALATION DIRECTED PRN 11/02/18 06/28/20 History calcium acetate(phosphat bind) 667 mg PO TIDM 11/02/18 06/28/20 History hydralazine 25 mg PO TID 11/02/18 06/28/20 History levothyroxine 75 mcg PO QAM 11/02/18 06/28/20 History simvastatin 20 mg PO HS 11/02/18 06/28/20 History amlodipine 10 mg PO QAM 07/14/19 06/28/20 History pantoprazole 40 mg PO QAM 07/14/19 06/28/20 History metoprolol succinate 25 mg PO BID 11/19/19 06/28/20 History Past Med/Surg History Medical History Anemia of chronic renal failure AV fistula LUE Breast cancer s/p chemo/xrt CAD (coronary artery disease) widely patent coronary anatomy with only minor luminal irregularities suggesting mild CAD per 2013 cardiac cath Cirrhosis per records COPD (chronic obstructive pulmonary disease) ESRD (end stage renal disease) dialysis Thursday//Thursday ([place]) GERD (gastroesophageal reflux disease) Hyperlipidemia Hypertension Hypothyroidism Lung cancer dx 06/2019 s/p xrt Non-ischemic cardiomyopathy On home oxygen therapy 2L O2 HS Thrombocytopenia chronic Surgical History H/O partial thyroidectomy GOITER History of bronchoscopy History of cardiac cath 2013- NO STENTS History of colonoscopy History of esophagogastroduodenoscopy (EGD) History of tooth extraction Hx of lumpectomy LEFT S/P arteriovenous (AV) fistula creation Family History Other Family history non-contributory No family history of adverse response to anesthesia Social History Smoking Status: Former smoker Tobacco Type: Cigarettes Second Hand Exposure: Yes (parents smoked); Hx Alcohol Use: No Hx Substance Use: No Preferred Language: Kenyan Communication Ability: Effective Die Mounter Required: No Beliefs That Will Affect Care: None marital status: Current Living Situation: Spouse current occupational status: disabled Other Information That Helps Us Care for You: No Feels Safe at Home: Yes Safety Concerns: Feels Safe At This Time Assistive Devices: Oxygen - at Night Review of Systems Review of Systems: All systems reviewed & are unremarkable except as noted in Subjective Physical Exam Physical Exam: General- oriented x 3, not in distress, speaks in sentences with no effort or accessory muscle use Head- atraumatic Eyes- PERRL, EOMI, anicteric ENT- oropharynx clear Neck- supple, no JVD, no adenopathy, no thyromegaly; carotids +2/2, no bruits appreciated Lungs- clear to auscultation bilaterally, no rales/wheezes Heart- normal rate, regular rhythm; no murmur, no gallop, no rub appreciated Abdomen- normal bowel sounds, nondistended, soft, mild tenderness epigastric area, no masses or hepatosplenomegaly Extremities- no pretibial edema, no calf tenderness; peripheral pulses intact Neuro- alert, oriented x 3; CN 2-12 grossly intact; motor 5/5 bilaterally;sensation 100% on all extremities; no other gross focal neurologic deficits Skin- warm & dry Results & Data Results & Data ([facility]) Vital Signs (Past 12 Hours) Vital Signs Temp Pulse Pulse Resp BP BP Pulse Ox 06/28/20 12:00 80 25 H 154/64 H 95 06/28/20 11:30 78 28 H 94 06/28/20 11:28 78 30 H 91 06/28/20 11:17 79 23 153/65 H 91 06/28/20 10:35 78 18 138/71 96 06/28/20 08:42 36.5 C 87 20 146/68 H 97 Laboratory Results Laboratory Results - last 24 hr 06/28/20 06/28/20 09:08 09:18 WBC 5.12 RBC 4.32 Hgb 11.0 L Hct 36.6 L MCV 84.7 MCH 25.5 MCHC 30.1 L RDW Std Deviation 55.1 H RDW Coeff of Dave 17.9 H Plt Count 90 L MPV 9.5 Immature Gran % (Auto) 0.6 Neut % (Auto) 82.0 Lymph % (Auto) 7.4 [place] % (Auto) 9.8 Eos % (Auto) 0.0 Baso % (Auto) 0.2 Neut # (Auto) 4.20 Lymph # (Auto) 0.38 L [place] # (Auto) 0.50 Eos # (Auto) 0.00 Baso # (Auto) 0.01 Immature Gran # (Auto) 0.03 H Polychromasia 1+ Sodium 140 Potassium 2.5 L* Chloride 102 Carbon Dioxide 33 H Anion Gap 5.0 BUN 5 L Creatinine 2.66 H Est Cr Clr Drug Dosing 15.3 Est GFR ( Amer) 21.6 Est GFR (Non-Af Amer) 18.6 BUN/Creatinine Ratio 1.7 L Glucose 95 Calcium 7.9 L Total Bilirubin 1.2 H AST 18 ALT 7 L Alkaline Phosphatase 147 H Total Protein 6.6 Albumin 2.8 L Globulin 3.8 Albumin/Globulin Ratio 0.[address] abdomen and pelvis reviewed Code Status & VTE Plan Code Status Full code as per patient VTE Prophylaxis Plan VTE Prophylaxis will be ordered: Yes
[2020-06-28] MEDS ORDERED: traMADol HCL 50 MG TABLET PO PRN (16:14)
[2020-06-28] MEDS ORDERED: ALBUTEROL 0.083% NEBU SOLN 3 ML VIAL INH PRN (16:14)
[2020-06-28] MEDS: CALCIUM ACETATE 667 MG CAP/TAB PO SCH (20:57)
[2020-06-28] MEDS: hydrALAZINE HCL 25 MG TAB PO SCH ×2 (20:57→21:12)
[2020-06-28] MEDS: SIMVASTATIN 20 MG TAB PO SCH (20:58)
[2020-06-28] MEDS ORDERED: METOPROLOL SUCC 25MG EXT REL TAB PO SCH (21:00)
[2020-06-29] MEDS: PROMETHAZINE HCL 12.5 MG in SODIUM CHLORIDE 0.9% 50 ML IV PRN ×2 (00:22→08:20)
[2020-06-29 02:30] LABS: Hemoglobin 9.5 g/dL (12.0-16.0); Mean Corpuscular Hemoglobin 25.7 pg (25-34); Mean Corpuscular Hgb Conc 29.7 g/dL (32-36); Mean Corpuscular Volume 86.7 fL (80-100); RDW Coefficient of Variation 17.8 % (11.5-14.5); RDW Standard Deviation 56.6 fL (36.4-46.3); Red Blood Count 3.69 M/uL (4.2-5.4); White Blood Count 3.55 K/uL (4.8-10.8)
[2020-06-29 02:34] LABS: Mean Platelet Volume 10.5 fL (7.4-10.4); Platelet Count 73 K/uL (130-400)
[2020-06-29] MEDS: METOPROLOL SUCC 25MG EXT REL TAB PO SCH ×2 (02:40→19:27)
[2020-06-29 02:51] LABS: Basophils # (auto) 0.01 K/uL (0-0.2); Basophils % (auto) 0.3 %; Eosinophils # (auto) 0.03 K/uL (0-0.5); Eosinophils % (auto) 0.8 %; Immature Granulocytes # (auto) 0.01 K/uL (0.00-0.02); Immature Granulocytes % (auto) 0.3 %; Lymphocytes # (auto) 0.36 K/uL (1.2-3.4); Lymphocytes % (auto) 10.1 %; Monocytes # (auto) 0.44 K/uL (0.11-0.59); Monocytes % (auto) 12.4 %; Neutrophils % (auto) 76.1 %
[2020-06-29 02:53] LABS: BUN Creatinine Ratio 2.6 (10-20); Calcium 7.6 mg/dl (8.5-10.1); Creatinine Clr Calc Pharmacy 9.2 ml/min; Est GFR (African American) 11.7; Est GFR (Non-African American) 10.1; Magnesium 2.1 mg/dl (1.8-2.4)
[2020-06-29] MEDS ORDERED: POTASSIUM CHLORIDE 10 MEQ TABCR PO STA (03:14)
[2020-06-29] MEDS: LEVOTHYROXINE SODIUM 75 MCG TABLET PO SCH (06:09)
[2020-06-29] MEDS: CALCIUM ACETATE 667 MG CAP/TAB PO SCH ×3 (08:20→18:09)
[2020-06-29] MEDS: PANTOprazole 40 MG TAB PO SCH (08:20)
[2020-06-29] MEDS: hydrALAZINE HCL 25 MG TAB PO SCH ×3 (08:21→19:26)
[2020-06-29] MEDS: amLODIPine BESYLATE 5 MG TAB PO SCH (08:50)
[2020-06-29] MEDS: ACETAMINOPHEN 500 MG TAB PO PRN (09:32)
--- NOTE | 2020-06-29 09:38 | Gastrointestinal Consultation ---
Date of Consultation June 29, 2020 Assessment & Plan (1) Nausea: Likely multifactorial including azotemia. She has had chronic nausea. Recent EGD w/o cause. Recent EUS with gallstones and underwent cholecystectomy. Ct w/o cause of nausea or mild RLQ pain or diarrhea. Rec: 1. Will try zofran prn nausea. 2. Enc to try a regular consistency diet. Present on Admission?: Yes (2) Chronic diarrhea: Will check for results of stool for C-diff. Reasonable to arrange colonoscopy for chronic diarrhea but not urgent and would allow to fully recover from cholecystectomy prior. OK to use Imodium prn if is C-diff (-). Present on Admission?: Yes Supervising Physician Co-Signing Physician Notes I saw and evaluated the patient. We are consulted for evaluation of nausea and right-sided abdominal discomfort. The patient notes that her abdominal pain is localized to her right inguinal region. This is been ongoing since her recent cholecystectomy. Patient notes that her nausea has improved with use of Zofran. Physical examination No obvious distress No right upper quadrant tenderness noted No scleral icterus noted Impression: Patient with a history of nausea, perhaps this is related to her underlying uremia. Would recommend continued use of Zofran every 6-8 hours as needed for symptom control. With regard to the inguinal discomfort perhaps would be worthwhile to have the patient seen by general surgery should this his symptoms persist. At the present time her liver enzymes are within normal limits and her blood count has remained stable. Recommendations Zofran as needed for nausea Continue with daily PPI due to recent endoscopic mucosal resection History of Present Illness Reason for Consultation: persistent nausea Requesting Physician: Dr. Shabazz Attending Physician: Ronaldo Borjas MD History of Present Illness Ms. Mary Lou Grant is a 60 yr old female pt of Dr. Barnes with a hx of ESRD on dialysis, prior C-diff, COPD, PVD, CAD, non ischemic cardiomyopathy. She underwent cholecystectomy on 06/18 for cholelithiasis, chronic cholecystitis. She was admitted yesterday from dialysis for nausea, RLQ pain and diarrhea. Pt was also seen in GI for nausea and diarrhea in March and again in May and underwent EGD/EUS on 06/15/[address] Paulson with findings of multiple gastric polyps (some endoscopically resected - path hyperplastic), and was discharged on Protonix 40mg daily and Sucralfate QID. She has not had a recent colonoscopy but did undergo one in 2014 for chronic diarrhea with internal hemorrhoids, endoscopically normal colon mucosa. On arrival, non contrast CT w/o acute or inflammatory or infectious changes and no intrahepatic biliary ductal dilation. She tells me that she is currently nauseated, that she does not want to eat lunch, though she does not have vomiting. Promethazine has not been effective. T bili and alk phos are minimally elevated at T Bili 1.2, Alk Phos 147 and transaminases are normal. She did not mention any abdominal pain to me, but when I asked her about pain, she stated that she has had some RLQ pain. She is mildly distended but no significant tenderness on exam. She is afebrile and no leukocytosis. C-diff is pending. Allergies Allergy/AdvReac Type Severity Reaction Status Date / Time atropine Allergy Severe Dyspnea Verified 06/28/20 10:13 linezolid Allergy Severe Thrombocyto Verified 06/28/20 10:13 penia naproxen Allergy Severe Facial Verified 06/28/20 10:13 edema dipyridamole Allergy Intermediate "Bad Verified 06/28/20 10:13 reaction" per records vancomycin Allergy Intermediate Rash/tommy Verified 06/28/20 10:13 syndrome aspirin AdvReac Intermediate Abdominal Verified 06/28/20 10:13 cramping Home Medications Home Medications Medication Instructions Recorded Confirmed Type albuterol sulfate 2.5 mg INHALATION DIRECTED PRN 11/02/18 06/28/20 History calcium acetate(phosphat bind) 667 mg PO TIDM 11/02/18 06/28/20 History hydralazine 25 mg PO TID 11/02/18 06/28/20 History levothyroxine 75 mcg PO QAM 11/02/18 06/28/20 History simvastatin 20 mg PO HS 11/02/18 06/28/20 History amlodipine 10 mg PO QAM 07/14/19 06/28/20 History pantoprazole 40 mg PO QAM 07/14/19 06/28/20 History metoprolol succinate 25 mg PO BID 11/19/19 06/28/20 History Patient History Medical History (Updated 06/29/20 @ 12:25 by GERONIMO Hart) Anemia of chronic renal failure AV fistula LUE Breast cancer s/p chemo/xrt CAD (coronary artery disease) widely patent coronary anatomy with only minor luminal irregularities suggesting mild CAD per 2014 cardiac cath Cirrhosis per records COPD (chronic obstructive pulmonary disease) ESRD (end stage renal disease) dialysis Thursday//Thursday ([place]) GERD (gastroesophageal reflux disease) Hyperlipidemia Hypertension Hypothyroidism Lung cancer dx 06/2019 s/p xrt Non-ischemic cardiomyopathy On home oxygen therapy 2L O2 HS Thrombocytopenia chronic Surgical History H/O partial thyroidectomy GOITER History of bronchoscopy History of cardiac cath 2013- NO STENTS History of colonoscopy History of esophagogastroduodenoscopy (EGD) History of tooth extraction Hx of lumpectomy LEFT S/P arteriovenous (AV) fistula creation Family History Other Family history non-contributory No family history of adverse response to anesthesia Social History Smoking Status: Former smoker Tobacco Type: Cigarettes Second Hand Exposure: Yes (parents smoked); Hx Alcohol Use: No Hx Substance Use: No Preferred Language: Belarusian Communication Ability: Effective Platinum Smith Required: No Beliefs That Will Affect Care: None marital status: Current Living Situation: Spouse current occupational status: disabled Other Information That Helps Us Care for You: No Feels Safe at Home: Yes Safety Concerns: Feels Safe At This Time Assistive Devices: Oxygen - at Night Review of Systems Review of Systems: ROS: Gen: Denies weakness, fevers, weight loss Eyes: No eye redness, or pain, no recent vision changes Resp: Chronic SOB, pt states sl worse than usual as evidence by needing daytime O2; no cough Cardio: No palpitations/irregular beats, no chest pain GI: Mild RLq abd pain, + nausea, no vomiting : Denies pain on urination Skin: No jaundice, itching or new rashes Physical Exam Constitutional: WD/WN, vitals as above + ill appearing and + thin Eyes: PERRL, conjunctivae normal, anicteric sclerae ENMT: external ear and nose normal, oropharynx normal Neck: trachea midline, no thyromegaly Respiratory: Auscultation: + diminished lung sounds, + crackles (at each of the bases), + rales and + wheezes (mild, scattered) Cardiovascular: RRR, no murmur, no edema Gastrointestinal (Abdomen): Inspection/Auscultation: + abdomen distended (moderately) Percussion/Palpation: abdomen soft; abdomen nontender steri- strips intact, dry, no excessive incisional redness no drainage, there is mild ecchymosis Skin: no rashes, warm and dry Neurologic: PERRL, EOMI, accommodation nl, no face palsy, no dysarthria Psychiatric: A+Ox3, euthymic affect Lymphatic: no cervical or axillary lymphadenopathy Results & Data ([facility]) Vital Signs (Past 12 Hours) Vital Signs Temp Pulse Pulse Resp BP Pulse Ox 06/29/20 07:30 76 06/29/20 07:13 38.3 C H 77 20 132/60 98 06/29/20 03:55 37.2 C 72 22 133/54 L 96 06/28/20 23:59 36.9 C 74 22 132/58 L 97 Diagnostic Findings EUS 06/15/20: - There was no sign of significant pathology in the ampulla. - There was no sign of significant pathology in the common bile duct. - Hyperechoic material consistent with sludge was visualized endosonographically in the gallbladder. - There was no evidence of significant pathology in the visualized portion of the liver. - Pancreatic parenchymal abnormalities consisting of diffuse echogenicity were noted in the entire pancreas. - Endosonographic images of the left adrenal gland were unremarkable. - Multiple large gastric polyps. - No specimens collected. EGD 06/15/20: - Normal esophagus. - Z-line regular, 35 cm from the incisors. - Normal gastric fundus and gastric body. - A single large antral polyp (lesser curvature). Resected and retrieved. 4 Clips (MR conditional) were placed. - Multiple gastric polyps. 3 weer Resected and retrieved. Clips (MR conditional) were placed. - Normal duodenal bulb. - Mucosal variant in the duodenum. Duodenal path benign (pheomelanin duodenitis). Non contrast CT abd/pelvis on 06/28/20: 1. No acute infectious or inflammatory findings are identified in the abdomen or pelvis. 2. Chronic and postoperative parenchymal changes are again seen at both lung bases with foci of hyperdense consolidation, groundglass change, and trace left pleural effusion. Clinical correlation will be required. 3. Cardiomegaly. 4. Cirrhotic liver morphology. 5. The spleen is enlarged and there are numerous low-attenuation splenic lesions. This is similar to prior studies. 6. The kidneys are markedly atrophic. 7. Small volume of abdominopelvic ascites. 8. Additional findings as above.
--- NOTE | 2020-06-29 11:53 | Consultation Report ---
DATE OF CONSULTATION: 06/29/2020 NEPHROLOGY CONSULTATION NOTE REASON FOR CONSULT: Dialysis, patient is admitted with nausea, vomiting and abdominal pain for the last few days. HISTORY OF PRESENT ILLNESS: The patient is a 60-year-old female with ESRD, on chronic hemodialysis [id number]-[id number]. She has extensive comorbidities and has been admitted multiple times in the hospital, presented to the hospital yesterday after dialysis complaining of nausea, vomiting and abdominal pain. This is an acute on chronic problem. She has had multiple GI procedures done in the recent past including gastric polyp resection as well as laparoscopic cholecystectomy. She is currently n.p.o. GI and general surgery consult is pending at this time. She had dialysis yesterday without issue pertaining to dialysis and had a full prescription of dialysis. Potassium was noted to be low at 3. Creatinine is 4, BUN is 12. Blood pressure and hemodynamic status is fairly stable. PAST MEDICAL AND SURGICAL HISTORY: Extensive and was reviewed from H and P and includes cirrhosis, ischemic cardiomyopathy, ESRD, on hemodialysis [id number]-Mtulcuaf, oxygen at home, chronic thrombocytopenia, partial thyroidectomy, bronchoscopy, cardiac cath, EGD, lumpectomy, AV fistula. FAMILY HISTORY: Negative for renal disease or dialysis. SOCIAL HISTORY: Former smoker, no alcohol. She is and lives with her . REVIEW OF SYSTEMS: As detailed in HPI. Unless listed above, 12 systems reviewed are negative. PHYSICAL EXAMINATION: GENERAL: Middle-aged white female who looks a lot older and chronically ill. She is in mild respiratory distress even on speaking. HEENT: Mucous membranes moist. NECK: Supple. No jugular venous distention. CHEST: Bilateral decreased breath sounds with wheezing. HEART: Regular rate and rhythm. No murmurs or gallop appreciated. ABDOMEN: Soft, somewhat tender in the right upper quadrant. EXTREMITIES: Show no edema. NEUROLOGIC: Awake, alert, oriented x3. VITAL SIGNS: Blood pressure is 132/60, pulse rate 76, temperature 38.3 degrees Celsius, 98% on 2 liters OxyMask. LABORATORY TEST: From this morning was reviewed and shows potassium, which is still low. ASSESSMENT AND PLAN: A 60-year-old female with extensive medical problem with end-stage renal disease, on chronic hemodialysis, admitted with unspecified nausea, vomiting or abdominal pain. 1. End-stage renal disease: She will have dialysis tomorrow. Her potassium is still low, probably because of the nausea, vomiting and poor appetite. Already got k supplement. She does not appear to be in fluid overload. 2. Abdominal pain, nausea, vomiting, complicated history and is being addressed by gastroenterology and general surgery. Defer to them. MTDD
--- NOTE | 2020-06-29 15:42 | Surgery Consultation ---
Date of Consultation June 29, 2020 Assessment & Plan (1) Chronic diarrhea: (2) Nausea: no surgical issues post-op CT scan normal post-op no abdominal pain begin diet per medical team follow-up with Dr Molina as outpatient will sign off History of Present Illness Attending Physician: Ronaldo Borjas MD History of Present Illness Ms. Mary Lou Grant is a 60 yr old female with ESRD on dialysis, prior C-diff, COPD, PVD, CAD, non ischemic cardiomyopathy who underwent lap yehuda on 06/18/2020 for cholelithiasis. She was admitted yesterday from dialysis for jenna sea, RLQ pain and diarrhea. She has chronic nausea and diarrhea. A non contrast CT w/o acute or inflammatory or infectious changes and no intrahepatic biliary ductal dilation. Her nausea has improved. Allergies Allergies Allergy/AdvReac Type Severity Reaction Status Date / Time atropine Allergy Severe Dyspnea Verified 06/28/20 10:13 linezolid Allergy Severe Thrombocyto Verified 06/28/20 10:13 penia naproxen Allergy Severe Facial Verified 06/28/20 10:13 edema dipyridamole Allergy Intermediate "Bad Verified 06/28/20 10:13 reaction" per records vancomycin Allergy Intermediate Rash/tommy Verified 06/28/20 10:13 syndrome aspirin AdvReac Intermediate Abdominal Verified 06/28/20 10:13 cramping Home Medications Home Medications Medication Instructions Recorded Confirmed Type albuterol sulfate 2.5 mg INHALATION DIRECTED PRN 11/02/18 06/28/20 History calcium acetate(phosphat bind) 667 mg PO TIDM 11/02/18 06/28/20 History hydralazine 25 mg PO TID 11/02/18 06/28/20 History levothyroxine 75 mcg PO QAM 11/02/18 06/28/20 History simvastatin 20 mg PO HS 11/02/18 06/28/20 History amlodipine 10 mg PO QAM 07/14/19 06/28/20 History pantoprazole 40 mg PO QAM 07/14/19 06/28/20 History metoprolol succinate 25 mg PO BID 11/19/19 06/28/20 History Patient History Medical History (Updated 06/29/20 @ 12:25 by GERONIMO Hart) Anemia of chronic renal failure AV fistula LUE Breast cancer s/p chemo/xrt CAD (coronary artery disease) widely patent coronary anatomy with only minor luminal irregularities suggesting mild CAD per 2014 cardiac cath Cirrhosis per records COPD (chronic obstructive pulmonary disease) ESRD (end stage renal disease) dialysis Thursday//Thursday ([place]) GERD (gastroesophageal reflux disease) Hyperlipidemia Hypertension Hypothyroidism Lung cancer dx 06/2019 s/p xrt Non-ischemic cardiomyopathy On home oxygen therapy 2L O2 HS Thrombocytopenia chronic Surgical History H/O partial thyroidectomy GOITER History of bronchoscopy History of cardiac cath 2013- NO STENTS History of colonoscopy History of esophagogastroduodenoscopy (EGD) History of tooth extraction Hx of lumpectomy LEFT S/P arteriovenous (AV) fistula creation Family History Other Family history non-contributory No family history of adverse response to anesthesia Social History Smoking Status: Former smoker Tobacco Type: Cigarettes Second Hand Exposure: Yes (parents smoked); Hx Alcohol Use: No Hx Substance Use: No Preferred Language: Greenlandic Communication Ability: Effective Mercury [employer]her Required: No Beliefs That Will Affect Care: None marital status: Current Living Situation: Spouse current occupational status: disabled Other Information That Helps Us Care for You: No Feels Safe at Home: Yes Safety Concerns: Feels Safe At This Time Assistive Devices: Oxygen - at Night Review of Systems Constitutional: no fever, no chills and no anorexia Eyes: no problem reported Respiratory: no cough and no dyspnea Cardiovascular: no chest pain Gastrointestinal: + nausea (improved) and + diarrhea/loose stools; no abdominal pain and no vomiting Genitourinary: no dysuria Musculoskeletal: no back pain Integumentary: no problem reported Neurologic: + generalized weakness; no localized weakness Psychiatric: no depression and no anhedonia Physical Exam 2 Constitutional: well developed and well nourished; no acute distress Neck: trachea midline Respiratory: no respiratory distress and no labored breathing Auscultation: + diminished lung sounds Cardiovascular: RRR, no murmur, no edema Gastrointestinal (Abdomen): Inspection/Auscultation: abdomen normal to inspection, + abdomen distended and normal bowel sounds Percussion/Palpation: + ascites; abdomen nontender and no guarding Musculoskeletal: Head/Neck/Chest: normocephalic Skin: no rashes, warm and dry Neurologic: moves all extremities Psychiatric: Orientation: alert and oriented x 3 Results & Data ([facility]) Vital Signs (Past 12 Hours) Vital Signs Temp Pulse Pulse Resp BP BP Pulse Ox 06/29/20 14:30 62 17 97 06/29/20 14:00 63 22 95 06/29/20 13:37 36.8 C 64 21 114/62 99 06/29/20 13:30 62 18 95 06/29/20 13:00 64 21 95 06/29/20 12:30 71 26 H 06/29/20 12:00 68 19 96 06/29/20 11:30 71 20 97 06/29/20 11:00 73 26 H 98 06/29/20 10:30 76 24 96 06/29/20 10:00 78 23 98 06/29/20 09:30 86 25 H 06/29/20 09:00 80 22 94 06/29/20 08:30 80 29 H 99 06/29/20 08:00 78 27 H 99 06/29/20 07:30 96 H 37 H 95 06/29/20 07:13 38.3 C H 77 20 132/60 98 06/29/20 07:08 78 24 132/60 100 06/29/20 07:00 77 21 95 06/29/20 03:55 37.2 C 72 22 133/[address] SCAN OF THE ABDOMEN AND PELVIS WITHOUT IV CONTRAST CLINICAL HISTORY: Right lower quadrant abdominal pain. COMPARISON STUDY: Abdominal CT dated 06/21/2016. TECHNIQUE: CT scan of the abdomen and pelvis is performed from the lung bases to the proximal femora. Images are reviewed in the axial, sagittal, and coronal planes. IV contrast was not administered for this examination. Note that the examination was performed in suboptimal fashion without oral and IV contrast. A dose lowering technique was utilized adhering to the principles of ALARA. FINDINGS: Lung bases: The heart is enlarged noting a small pericardial effusion. The coronary arteries are densely calcified. There is a small hiatal hernia. There is hyperdense atelectasis/consolidation in the right middle lobe. Dependent hyperdense subpleural consolidation is seen in the left lower lobe. Postoperative change is seen at the anterior left lung base. Intralobular septal thickening with groundglass change is present at both lung bases. Trace pleural effusion is noted on the left. Liver: The unenhanced liver is cirrhotic in morphology and heterogeneous in attenuation. There is nodularity of the hepatic surface contour and hypertrophy of the left lobe. There is no intrahepatic biliary ductal dilatation. Gallbladder: Surgically absent noting clips in the gallbladder fossa. Spleen: The spleen is enlarged, measuring 15.2 cm in length. Numerous low- attenuation lesions are again seen throughout the spleen. Pancreas: The unenhanced pancreas is grossly unremarkable. Adrenal glands: Unremarkable. Kidneys: The unenhanced kidneys are markedly atrophic and without hydronephrosis. There are no renal calculi identified. Simple and complex cysts in both kidneys measure up to 10 mm.. Abdominal vasculature: There is advanced atherosclerotic calcification and ectasia of the abdominal aorta. Patency cannot be assessed on this unenhanced examination. Bowel: There is no bowel obstruction. Submucosal fat deposition is seen throughout the colon. Metallic foreign body or surgical clip is noted in the cecum. The appendix is well-visualized and normal. Peritoneum: No intraperitoneal free air is seen. There is a small volume of abdominopelvic ascites. There is a small fat-containing umbilical hernia with periumbilical infiltration. Lymphadenopathy: None. Pelvic viscera: The bladder is decompressed and cannot be evaluated. The uterus and adnexa are normal as visualized. A right inguinal hernia contains ascitic fluid. Skeletal structures: The skeletal structures are osteopenic. There is mild lumbosacral spondylosis. No lytic or blastic lesions are seen. IMPRESSION: 1. No acute infectious or inflammatory findings are identified in the abdomen or pelvis. 2. Chronic and postoperative parenchymal changes are again seen at both lung bases with foci of hyperdense consolidation, groundglass change, and trace left pleural effusion. Clinical correlation will be required. 3. Cardiomegaly. 4. Cirrhotic liver morphology. 5. The spleen is enlarged and there are numerous low-attenuation splenic lesions. This is similar to prior studies. 6. The kidneys are markedly atrophic. 7. Small volume of abdominopelvic ascites. 8. Additional findings as above.
--- NOTE | 2020-06-29 18:21 | Hospitalist Progress Note ---
Date of Service June 29, 2020 Assessment & Plan (1) Nausea & vomitin-year-old female with history of ESRD, liver cirrhosis, gastroparesis, irritable bowel syndrome, GERD, COPD, CAD, nonischemic cardiomyopathy, hypertension, Presented to the ER with persistent nausea and vomiting with right lower quadrant pain times few days. S/P laparoscopically cholecystectomy 06/18/2020 S/P EGD, ERCP revealing gastric polyps status post resection 06/15/2020 CT abdomen pelvis showed no acute process or no obstruction Gastro on board Plan to arrange colonoscopy for chronic diarrhea but not urgent and would allow to fully recover from cholecystectomy as an outptatient Starting on diet and advanced as tolerated Continue Phenergan and zofran prn and tramadol Surgery on board No surgical intervention as per surgery Clinically improved Hypokalemia K 3 today K replaced Monitor BMP closely due to hx ESRD Diarrhea As per gastro diarrhea is chronic She had a colonoscopy done few years ago due to diarrhea stools for C-diff negative Continue monitor electrolytes ESRD Nephrology on board next HD schedule for tomorrow Stable Liver cirrhosis Compensated No sign of fluid overload History of CAD, nonischemic cardiomyopathy Denies any chest pain Continue metoprolol, simvastatin Hypertension BP stable continue hydralazine 3 times daily and metoprolol COPD, interstitial lung disease Respiratory status stable DVT prophylaxis SCDs CODE STATUS Full code Disposition Possible discharge tomorrow Admission and Anticipated Discharge Date Admission Date: June 28, 2020 Subjective Pt was seen and examined Lying in bed with no distress Pt said that her abdomen is tender around the incision from the lap chol Pt said that she continues to have dry hives, but no vomiting Pt said that she is hungry and asking to get crackers to eat Denies any chest pain, palpitation, dizziness and SOB Physical Exam Physical Exam: General- No acute distress Head- atraumatic Eyes- PERRL, EOMI, ENT- oropharynx clear Neck- supple, no JVD Lungs- clear to auscultation Heart- regular rhythm; no murmur Abdomen- normal bowel sounds, soft, +tenderness with palpation around the incision area Extremities- no calf tenderness Neuro- alert, oriented x 3; PERRL, EOMI; no facial palsy; no dysarthria Skin- warm & dry Results & Data Results & Data ([facility]) Vital Signs (Past 12 Hours) Vital Signs Temp Pulse Pulse Resp BP BP Pulse Ox 06/29/20 14:30 62 17 97 06/29/20 14:00 63 22 95 06/29/20 13:37 36.8 C 64 21 114/62 99 06/29/20 13:30 62 18 95 06/29/20 13:00 64 21 95 06/29/20 12:30 71 26 H 06/29/20 12:00 68 19 96 06/29/20 11:30 71 20 97 06/29/20 11:00 73 26 H 98 06/29/20 10:30 76 24 96 06/29/20 10:00 78 23 98 06/29/20 09:30 86 25 H 06/29/20 09:00 80 22 94 06/29/20 08:30 80 29 H 99 06/29/20 08:00 78 27 H 99 06/29/20 07:30 96 H 37 H 95 06/29/20 07:13 38.3 C H 77 20 132/60 98 06/29/20 07:08 78 24 132/60 100 06/29/20 07:00 77 21 95
[2020-06-29] MEDS: SIMVASTATIN 20 MG TAB PO SCH (19:27)
[2020-06-30] MEDS: ONDANSETRON INJ 2 MG/ML 2 ML VIAL IV PRN (00:57)
[2020-06-30] MEDS: PROMETHAZINE HCL 12.5 MG in SODIUM CHLORIDE 0.9% 50 ML IV PRN (03:46)
[2020-06-30] MEDS: ACETAMINOPHEN 500 MG TAB PO PRN ×2 (05:07→15:15)
[2020-06-30] MEDS: LEVOTHYROXINE SODIUM 75 MCG TABLET PO SCH (05:07)
[2020-06-30] MEDS: CALCIUM ACETATE 667 MG CAP/TAB PO SCH ×3 (07:48→17:36)
[2020-06-30] MEDS: METOPROLOL SUCC 25MG EXT REL TAB PO SCH ×2 (07:49→22:05)
[2020-06-30] MEDS: amLODIPine BESYLATE 5 MG TAB PO SCH (07:49)
[2020-06-30] MEDS: hydrALAZINE HCL 25 MG TAB PO SCH ×3 (07:49→22:04)
[2020-06-30] MEDS: PANTOprazole 40 MG TAB PO SCH (07:49)
[2020-06-30 13:15] LABS: Hematocrit (blood only) 36.3 % (37-47); Hemoglobin 10.7 g/dL (12.0-16.0); Mean Corpuscular Hemoglobin 25.3 pg (25-34); Mean Corpuscular Hgb Conc 29.5 g/dL (32-36); Mean Corpuscular Volume 85.8 fL (80-100); RDW Coefficient of Variation 17.6 % (11.5-14.5); Red Blood Count 4.23 M/uL (4.2-5.4); White Blood Count 3.91 K/uL (4.8-10.8)
[2020-06-30 13:46] LABS: BUN Creatinine Ratio 2.5 (10-20); Calcium 8.5 mg/dl (8.5-10.1); Est GFR (African American) 19.3; Est GFR (Non-African American) 16.6; Potassium 3.4 mmol/L (3.5-5.1)
[2020-06-30 13:49] LABS: Mean Platelet Volume 9.9 fL (7.4-10.4); Platelet Count 84 K/uL (130-400)
--- NOTE | 2020-06-30 16:33 | Hospitalist Progress Note ---
Date of Service June 30, 2020 Assessment & Plan (1) Nausea & vomitin-year-old female with history of ESRD, liver cirrhosis, gastroparesis, irritable bowel syndrome, GERD, COPD, CAD, nonischemic cardiomyopathy, hypertension, Presented to the ER with persistent nausea and vomiting with right lower quadrant pain times few days. S/P laparoscopically cholecystectomy 06/18/2020 S/P EGD, ERCP revealing gastric polyps status post resection 06/15/2020 CT abdomen pelvis showed no acute process or no obstruction Gastro on board Plan to arrange colonoscopy for chronic diarrhea but not urgent and would allow to fully recover from cholecystectomy as an outptatient Starting on diet and advanced as tolerated Continue Phenergan and zofran prn and tramadol Surgery on board No surgical intervention as per surgery Clinically improved Hypokalemia K 3.4 today K replaced Monitor BMP closely due to hx ESRD Diarrhea As per gastro diarrhea is chronic She had a colonoscopy done few years ago due to diarrhea stools for C-diff negative Continue monitor electrolytes ESRD Nephrology on board HD done today Stable Liver cirrhosis Compensated No sign of fluid overload History of CAD, nonischemic cardiomyopathy Denies any chest pain Continue metoprolol, simvastatin Hypertension BP stable continue hydralazine 3 times daily and metoprolol COPD, interstitial lung disease Respiratory status stable DVT prophylaxis SCDs CODE STATUS Full code Disposition Possible discharge tomorrow Admission and Anticipated Discharge Date Admission Date: June 28, 2020 Subjective Pt was seen and examined Lying in bed with no distress Pt said that she feels ok She said that last night she felt nauseated after eating a sandwich She had HD done this morning Denies any chest pain, palpitation, dizziness and SOB Physical Exam Physical Exam: General- No acute distress Head- atraumatic Eyes- PERRL, EOMI, ENT- oropharynx clear Neck- supple, no JVD Lungs- clear to auscultation Heart- regular rhythm; no murmur Abdomen- normal bowel sounds, soft, +tenderness with palpation around the incision area Extremities- no calf tenderness Neuro- alert, oriented x 3; PERRL, EOMI; no facial palsy; no dysarthria Skin- warm & dry Results & Data Results & Data ([facility]) Vital Signs (Past 12 Hours) Vital Signs Temp Pulse Pulse Resp BP BP Pulse Ox 06/30/20 15:12 39.5 C H 82 18 121/56 L 96 06/30/20 12:20 36.3 C L 79 156/65 H 06/30/20 11:40 67 143/62 H 06/30/20 11:20 67 143/62 H 06/30/20 11:00 64 144/58 H 06/30/20 10:40 65 151/64 H 06/30/20 10:20 64 137/60 06/30/20 10:00 64 126/52 L 06/30/20 09:40 63 122/55 L 06/30/20 09:20 64 118/50 L 06/30/20 09:00 63 110/54 L 06/30/20 08:40 36.7 C 69 06/30/20 07:00 37.1 C 72 18 119/58 L 95
--- NOTE | 2020-06-30 16:41 | Nephrology Progress Note ---
Date of Service June 30, 2020 Assessment & Plan (1) Nausea & vomitin-year-old female with history of ESRD, liver cirrhosis, gastroparesis, irritable bowel syndrome, GERD, COPD, CAD, nonischemic cardiomyopathy, hypertension, Presented to the ER with persistent nausea and vomiting with right lower quadrant pain times few days. ESRD on HD, For HD today. UF as tolerated. Potassium improved. Diarrhea As per gastro diarrhea is chronic She had a colonoscopy done few years ago due to diarrhea stools for C-diff negative As per GI and primary team. Hypertension BP stable Admission and Anticipated Discharge Date Admission Date: June 28, 2020 Subjective Pt was seen and examined Lying in bed with no distress Review of Systems Review of Systems: All systems reviewed & are unremarkable except as noted in HPI & below ROS: Gen: Denies weakness, fevers, weight loss Eyes: No eye redness, or pain, no recent vision changes Resp: Chronic SOB, pt states sl worse than usual as evidence by needing daytime O2; no cough Cardio: No palpitations/irregular beats, no chest pain GI: Mild RLq abd pain, + nausea, no vomiting : Denies pain on urination Skin: No jaundice, itching or new rashes Physical Exam Physical Exam: General- No acute distress Head- atraumatic Eyes- PERRL, EOMI, ENT- oropharynx clear Neck- supple, no JVD Lungs- clear to auscultation Heart- regular rhythm; no murmur Abdomen- normal bowel sounds, soft, +tenderness with palpation around the incision area Extremities- no calf tenderness Neuro- alert, oriented x 3; PERRL, EOMI; no facial palsy; no dysarthria Skin- warm & dry Results & Data ([facility]) Vital Signs (Past 12 Hours) Vital Signs Temp Pulse Pulse Resp BP BP Pulse Ox 06/30/20 15:12 39.5 C H 82 18 121/56 L 96 06/30/20 12:20 36.3 C L 79 156/65 H 06/30/20 11:40 67 143/62 H 06/30/20 11:20 67 143/62 H 06/30/20 11:00 64 144/58 H 06/30/20 10:40 65 151/64 H 06/30/20 10:20 64 137/60 06/30/20 10:00 64 126/52 L 06/30/20 09:40 63 122/55 L 06/30/20 09:20 64 118/50 L 06/30/20 09:00 63 110/54 L 06/30/20 08:40 36.7 C 69 06/30/20 07:00 37.1 C 72 18 119/58 L 95
[2020-06-30] MEDS: SIMVASTATIN 20 MG TAB PO SCH (22:05)
[2020-07-01] MEDS: ONDANSETRON INJ 2 MG/ML 2 ML VIAL IV PRN (02:54)
[2020-07-01 07:04] LABS: BUN Creatinine Ratio 3.5 (10-20); Creatinine Clr Calc Pharmacy 8.8 ml/min; Est GFR (African American) 10.7; Est GFR (Non-African American) 9.3; Potassium 3.6 mmol/L (3.5-5.1)
--- NOTE | 2020-07-01 07:37 | Nephrology Progress Note ---
Date of Service July 01, 2020 Assessment & Plan (1) Nausea & vomitin-year-old female with history of ESRD, liver cirrhosis, gastroparesis, irritable bowel syndrome, GERD, COPD, CAD, nonischemic cardiomyopathy, hypertension, Presented to the ER with persistent nausea and vomiting with right lower quadrant pain times few days. ESRD on HD, Had HD yesterday, no issues. To be dialysed on Thursday if still in house, Diarrhea As per gastro diarrhea is chronic She had a colonoscopy done few years ago due to diarrhea stools for C-diff negative As per GI and primary team. Admission and Anticipated Discharge Date Admission Date: June 28, 2020 Subjective Resting comfortable, N& vomiting almost resolved, Review of Systems Review of Systems: All systems reviewed & are unremarkable except as noted in HPI & below Physical Exam Physical Exam: General- No acute distress Head- atraumatic Eyes- PERRL, EOMI, ENT- oropharynx clear Neck- supple, no JVD Lungs- clear to auscultation Heart- regular rhythm; no murmur Abdomen- normal bowel sounds, soft, +tenderness with palpation around the incision area Extremities- no calf tenderness Neuro- alert, oriented x 3; PERRL, EOMI; no facial palsy; no dysarthria Skin- warm & dry Results & Data ([facility]) Vital Signs (Past 12 Hours) Vital Signs Temp Pulse Resp BP BP Pulse Ox 07/01/20 02:52 37.4 C 82 18 148/54 H 95 06/30/20 23:34 37.3 C 76 20 142/50 H 94 Laboratory Results 06/30/20 13:05 07/01/20 05:48
[2020-07-01] MEDS: LEVOTHYROXINE SODIUM 75 MCG TABLET PO SCH (09:11)
[2020-07-01] MEDS: hydrALAZINE HCL 25 MG TAB PO SCH ×2 (09:12→14:01)
[2020-07-01] MEDS: CALCIUM ACETATE 667 MG CAP/TAB PO SCH ×2 (09:12→11:57)
[2020-07-01] MEDS: amLODIPine BESYLATE 5 MG TAB PO SCH (09:12)
[2020-07-01] MEDS: PANTOprazole 40 MG TAB PO SCH (09:13)
[2020-07-01] MEDS: METOPROLOL SUCC 25MG EXT REL TAB PO SCH (10:01)
--- NOTE | 2020-07-01 13:26 | Hospitalist Progress Note ---
Date of Service July 01, 2020 Assessment & Plan (1) Nausea & vomitin-year-old female with history of ESRD, liver cirrhosis, gastroparesis, irritable bowel syndrome, GERD, COPD, CAD, nonischemic cardiomyopathy, hypertension, Presented to the ER with persistent nausea and vomiting with right lower quadrant pain times few days. S/P laparoscopically cholecystectomy 06/18/2020 S/P EGD, ERCP revealing gastric polyps status post resection 06/15/2020 CT abdomen pelvis showed no acute process or no obstruction Gastro on board Plan to arrange colonoscopy for chronic diarrhea but not urgent and would allow to fully recover from cholecystectomy as an outptatient Starting on diet and advanced as tolerated Continue Phenergan and zofran prn and tramadol Surgery on board No surgical intervention as per surgery Clinically improved Hypokalemia K 3.6 today Stable Diarrhea As per gastro diarrhea is chronic She had a colonoscopy done few years ago due to diarrhea stools for C-diff negative Continue monitor electrolytes ESRD Nephrology on board Next HD on Thursday Stable Liver cirrhosis Compensated No sign of fluid overload History of CAD, nonischemic cardiomyopathy Denies any chest pain Continue metoprolol, simvastatin Hypertension BP stable continue hydralazine 3 times daily and metoprolol COPD, interstitial lung disease Respiratory status stable DVT prophylaxis SCDs CODE STATUS Full code Disposition Possible discharge today Admission and Anticipated Discharge Date Admission Date: June 28, 2020 Subjective Pt was seen and examined Lying in bed with no distress Pt said that she was nauseated last night her last bowel movement was last night Denies any chest pain, palpitation, dizziness and SOB Physical Exam Physical Exam: General- No acute distress Head- atraumatic Eyes- PERRL, EOMI, ENT- oropharynx clear Neck- supple, no JVD Lungs- clear to auscultation Heart- regular rhythm; no murmur Abdomen- normal bowel sounds, soft, +tenderness with palpation around the incision area Extremities- no calf tenderness Neuro- alert, oriented x 3; PERRL, EOMI; no facial palsy; no dysarthria Skin- warm & dry Results & Data Results & Data ([facility]) Vital Signs (Past 12 Hours) Vital Signs Temp Pulse Resp BP Pulse Ox 07/01/20 08:00 36.5 C 88 16 122/60 98 07/01/20 02:52 37.4 C 82 18 148/54 H 95
--- NOTE | 2020-07-02 09:38 | Discharge Summary ---
Date of Service July 01, 2020 Admission HPI Per Admitting Provider 60-year-old female with history of end-stage renal disease, liver cirrhosis, gastroparesis, irritable bowel syndrome, GERD, COPD, CAD, ischemic cardiomyopathy, hypertension, other problems noted below presenting with persistent nausea and vomiting associated with right lower quadrant pain times a few days. This month, patient had an EGD and ERCP performed for epigastric pain by Dr. Vignesh Paulson, which revealed gastric polyps status post resection and biliary sludge. She subsequently underwent laparoscopic cholecystectomy by Dr. Donato Molina last June 18, 2020. As per patient, she stayed on a soft/liquid diet at least 1 week after the surgery and was doing well at that time. When she started to advance her diet to solid foods, the patient started to have nausea and was vomiting her food after she eats. Occasionally, patient would also vomit her pills. This is associated with persistent right lower quadrant pain and at least 2 loose stools per day. She denies fevers or chills, pain, shortness of breath, palpitations, dizziness. Last night, the patient had nausea and vomited her pills. At the ER, patient was received with stable vital signs. CT abdomen pelvis did not reveal any acute process, no obstruction, no fluid collection noted. Patient was given Zofran with relief of symptoms. Exam, the patient was seen resting in bed, not in distress, comfortable. Reports mild to moderate right lower quadrant pain, but no active nausea during my exam. No other symptoms Primary Care Provider: César Barnes MD Admission Exam Per Admitting Provider General- oriented x 3, not in distress, speaks in sentences with no effort or accessory muscle use Head- atraumatic Eyes- PERRL, EOMI, anicteric ENT- oropharynx clear Neck- supple, no JVD, no adenopathy, no thyromegaly; carotids +2/2, no bruits appreciated Lungs- clear to auscultation bilaterally, no rales/wheezes Heart- normal rate, regular rhythm; no murmur, no gallop, no rub appreciated Abdomen- normal bowel sounds, nondistended, soft, mild tenderness epigastric area, no masses or hepatosplenomegaly Extremities- no pretibial edema, no calf tenderness; peripheral pulses intact Neuro- alert, oriented x 3; CN 2-12 grossly intact; motor 5/5 bilaterally;sensation 100% on all extremities; no other gross focal neurologic deficits Skin- warm & dry Principal Diagnosis Nausea & vomiting& Diarrhea Hypokalemia Diarrhea ESRD Liver cirrhosis History of CAD, nonischemic cardiomyopathy Hypertension COPD, interstitial lung disease Discharge Exam General- No acute distress Head- atraumatic Eyes- PERRL, EOMI, ENT- oropharynx clear Neck- supple, no JVD Lungs- clear to auscultation Heart- regular rhythm; no murmur Abdomen- normal bowel sounds, soft, +tenderness with palpation around the incision area Extremities- no calf tenderness Neuro- alert, oriented x 3; PERRL, EOMI; no facial palsy; no dysarthria Skin- warm & dry Discharge Data Allergies Allergy/AdvReac Type Severity Reaction Status Date / Time atropine Allergy Severe Dyspnea Verified 06/28/20 10:13 linezolid Allergy Severe Thrombocyto Verified 06/28/20 10:13 penia naproxen Allergy Severe Facial Verified 06/28/20 10:13 edema dipyridamole Allergy Intermediate "Bad Verified 06/28/20 10:13 reaction" per records vancomycin Allergy Intermediate Rash/tommy Verified 06/28/20 10:13 syndrome aspirin AdvReac Intermediate Abdominal Verified 06/28/20 10:13 cramping Consultations 06/28/20 12:11 ED Decision to Admit Stat 06/28/20 16:14 Consult Gastroenterology Routine Consult General Surgery Routine Consult Nephrology Stat Ordered Studies 06/28/20 10:18 CT abd pelvis wo con Stat CT SCAN OF THE ABDOMEN AND PELVIS WITHOUT IV CONTRAST CLINICAL HISTORY: Right lower quadrant abdominal pain. COMPARISON STUDY: Abdominal CT dated 06/21/2016. TECHNIQUE: CT scan of the abdomen and pelvis is performed from the lung bases to the proximal femora. Images are reviewed in the axial, sagittal, and coronal planes. IV contrast was not administered for this examination. Note that the examination was performed in suboptimal fashion without oral and IV contrast. A dose lowering technique was utilized adhering to the principles of ALARA. FINDINGS: Lung bases: The heart is enlarged noting a small pericardial effusion. The coronary arteries are densely calcified. There is a small hiatal hernia. There is hyperdense atelectasis/consolidation in the right middle lobe. Dependent hyperdense subpleural consolidation is seen in the left lower lobe. Postoperative change is seen at the anterior left lung base. Intralobular septal thickening with groundglass change is present at both lung bases. Trace pleural effusion is noted on the left. Liver: The unenhanced liver is cirrhotic in morphology and heterogeneous in attenuation. There is nodularity of the hepatic surface contour and hypertrophy of the left lobe. There is no intrahepatic biliary ductal dilatation. Gallbladder: Surgically absent noting clips in the gallbladder fossa. Spleen: The spleen is enlarged, measuring 15.2 cm in length. Numerous low- attenuation lesions are again seen throughout the spleen. Pancreas: The unenhanced pancreas is grossly unremarkable. Adrenal glands: Unremarkable. Kidneys: The unenhanced kidneys are markedly atrophic and without hydronephrosis. There are no renal calculi identified. Simple and complex cysts in both kidneys measure up to 10 mm.. Abdominal vasculature: There is advanced atherosclerotic calcification and ectasia of the abdominal aorta. Patency cannot be assessed on this unenhanced examination. Bowel: There is no bowel obstruction. Submucosal fat deposition is seen throughout the colon. Metallic foreign body or surgical clip is noted in the cecum. The appendix is well-visualized and normal. Peritoneum: No intraperitoneal free air is seen. There is a small volume of abdominopelvic ascites. There is a small fat-containing umbilical hernia with periumbilical infiltration. Lymphadenopathy: None. Pelvic viscera: The bladder is decompressed and cannot be evaluated. The uterus and adnexa are normal as visualized. A right inguinal hernia contains ascitic fluid. Skeletal structures: The skeletal structures are osteopenic. There is mild lumbosacral spondylosis. No lytic or blastic lesions are seen. IMPRESSION: 1. No acute infectious or inflammatory findings are identified in the abdomen or pelvis. 2. Chronic and postoperative parenchymal changes are again seen at both lung bases with foci of hyperdense consolidation, groundglass change, and trace left pleural effusion. Clinical correlation will be required. 3. Cardiomegaly. 4. Cirrhotic liver morphology. 5. The spleen is enlarged and there are numerous low-attenuation splenic lesions. This is similar to prior studies. 6. The kidneys are markedly atrophic. 7. Small volume of abdominopelvic ascites. 8. Additional findings as above. ACT 112: Negative or not required by law. Electronically signed by: Fortunato Morris M.D. 06/28/2020 10:49 AM Dictated: 06/28/20 1038 Transcribed: 06/28/20 1038 Hospital Course (1) Nausea & vomitin-year-old female with history of ESRD, liver cirrhosis, gastroparesis, irritable bowel syndrome, GERD, COPD, CAD, nonischemic cardiomyopathy, hypertension, Presented to the ER with persistent nausea and vomiting with right lower quadrant pain times few days. S/P laparoscopically cholecystectomy 06/18/2020 S/P EGD, ERCP revealing gastric polyps status post resection 06/15/2020 CT abdomen pelvis showed no acute process or no obstruction Gastro on board Plan to arrange colonoscopy for chronic diarrhea but not urgent and would allow to fully recover from cholecystectomy as an outptatient Starting on diet and advanced as tolerated Continue Phenergan and zofran prn and tramadol Surgery on board No surgical intervention as per surgery Clinically improved Hypokalemia K 3.6 today Stable Diarrhea As per gastro diarrhea is chronic She had a colonoscopy done few years ago due to diarrhea stools for C-diff negative Continue monitor electrolytes ESRD Nephrology on board Next HD on Thursday Stable Liver cirrhosis Compensated No sign of fluid overload History of CAD, nonischemic cardiomyopathy Denies any chest pain Continue metoprolol, simvastatin Hypertension BP stable continue hydralazine 3 times daily and metoprolol COPD, interstitial lung disease Respiratory status stable DVT prophylaxis SCDs CODE STATUS Full code Disposition Possible discharge today Total Time Total Time Spent Total Time Spent (In Minutes): 35 minutes Total Time Includes: Examination of the Patient, Discharge Planning, Medication Reconciliation, Communication With Other Providers and Other Discharge Plan Discharge Items Patient Disposition: Home - Self-Care Reason For Visit: PERSISTENT NAUSEA, ABDOMINAL PAIN Discharge Diagnosis: Nausea & vomiting& Diarrhea Hypokalemia Diarrhea ESRD Liver cirrhosis History of CAD, nonischemic cardiomyopathy Hypertension COPD, interstitial lung disease Activity: Resume your previous activity Non-emergency contact: Primary Care Provider Call non-emergency contact if: you have any medication questions and your symptoms worsen Follow-up/Referrals: César Barnes MD [Primary Care Provider] - Diet: Dialysis Renal Addtl Attending Provider Instructions: Follow up with your primary care provider Dr. Barnes on 07/02 @ 12:00 PM Follow up with gastroenterology to arrange for the outpatient colonoscopy (Please call to schedule for the appointment) Follow up with surgery Dr. Molina next week (Please call to schedule for the appointment) Next dialysis is on Thursday Ok to take Tylenol as needed if you develop any abdominal discomfort Pending Studies at Discharge: No Stand-Alone Forms: My [facility], Smoking Cessation Medications and DC Order Prescriptions: New ondansetron HCl [Zofran] 4 mg tablet 4 mg PO Q8H PRN (Reason: nausea and vomiting) Qty: 30 RF: 0 Continued metoprolol succinate 25 mg Tablet Extended Release 24 Hr 25 mg PO BID RF: 0 albuterol sulfate 2.5 mg /3 mL (0.083 %) Solution For Nebulization 2.5 mg INHALATION DIRECTED PRN (Reason: Shortness Of Breath Or Wheezing) RF: 0 hydralazine 25 mg Tablet 25 mg PO TID RF: 0 calcium acetate(phosphat bind) 667 mg Tablet 667 mg PO TIDM RF: 0 levothyroxine 75 mcg Tablet 75 mcg PO QAM RF: 0 simvastatin 20 mg Tablet 20 mg PO HS RF: 0 amlodipine 10 mg Tablet 10 mg PO QAM RF: 0 pantoprazole 40 mg Tablet,Delayed Release (Dr/Ec) 40 mg PO QAM RF: 0 Discharge Orders: Discharge Order (Routine); Ordered 07/01/20 Ordered By: Ronaldo Borjas Admission Data Admit Date/Time: 06/28/20 13:12 Attending Provider: Ronaldo Borjas Admit Provider: Caden Shabazz Primary Care Provider: César Barnes Other Providers: Sascha Marr ; Gisell Paulson ; Bhanu Alexis ; Caden Shabazz Other Interventions: Discharge Summary Assessment (RN) Last Done: 07/01/20 14:23
== END 2020-07-01 15:35 | disposition home or self-care (01) | DRG 391 ==
LOC: ED 08:37 → 1E 13:12 → SUATTDRO 13:12 → 1E 15:47 → 2S 06-30 18:59

== ENCOUNTER 2020-07-30 04:21 | Inpatient (IN) ==
[2020-07-30] MEDS ORDERED: DROPERIDOL 5 MG/2 ML VIAL IV STA (04:33)
--- NOTE | 2020-07-30 04:44 | Emergency Department Note ---
History of Present Illness General Chief complaint: Abdominal Pain Stated complaint: VOMITING, ABD. PAIN- SINCE GALLBLADDER REMOVAL Time Seen by Provider: 07/30/20 04:33 History of Present Illness Maximum Pain Intensity: 10 This 60-year-old presents to the ER complaining of nausea vomiting and abdominal pain Location: Abdomen Quality: Nauseated Severity: Moderate Duration: Past few days Timing: Started few days ago Context: Symptoms got worse and patient came in Modifying factors: better with nothing; worse with drinking Patient states this is recurrent since her gallbladder was removed. She has been seen here couple times and seen the surgeon. No clear etiology. Her home nausea medicines are not helping. Patient was supposed to go to dialysis this morning but came here instead. She does not make urine. Patient has chest pain, dyspnea, flu symptoms. Home Medications Medication Instructions Recorded Confirmed Type albuterol sulfate 2.5 mg INHALATION DIRECTED PRN 11/02/18 07/30/20 History calcium acetate(phosphat bind) 667 mg PO TIDM 11/02/18 07/30/20 History hydralazine 25 mg PO TID 11/02/18 07/30/20 History levothyroxine 75 mcg PO QAM 11/02/18 07/30/20 History simvastatin 20 mg PO HS 11/02/18 07/30/20 History amlodipine 10 mg PO QAM 07/14/19 07/30/20 History pantoprazole 40 mg PO QAM 07/14/19 07/30/20 History metoprolol succinate 25 mg PO DAILY 11/19/19 07/30/20 History trimethobenzamide 300 mg PO Q6H PRN 07/19/20 07/30/20 History ondansetron HCl [Zofran] 4 mg PO Q6H PRN #6 tab 07/23/20 07/30/20 Rx sennosides [Senokot] 8.6 mg PO HS #30 tab 07/23/20 07/30/20 Rx docusate sodium [Colace] 200 mg PO BID 07/30/20 07/30/20 History metoclopramide HCl 10 mg PO TID 07/30/20 07/30/20 History oxycodone 5 mg PO Q4 PRN 07/30/20 07/30/20 History Allergies Allergy/AdvReac Type Severity Reaction Status Date / Time atropine Allergy Severe Dyspnea Verified 07/30/20 04:44 linezolid Allergy Severe Thrombocyto Verified 07/30/20 04:44 penia naproxen Allergy Severe Facial Verified 07/30/20 04:44 edema dipyridamole Allergy Intermediate "Bad Verified 07/30/20 04:44 reaction" per records vancomycin Allergy Intermediate Rash/tommy Verified 07/30/20 04:44 syndrome aspirin AdvReac Intermediate Abdominal Verified 07/30/20 04:44 cramping Past Med/Surg History Medical History (Updated 07/30/20 @ 05:38 by Ceci Morrissey PA-C) Abdominal pain, acute, right lower quadrant Anemia of chronic renal failure AV fistula LUE Breast cancer s/p chemo/xrt CAD (coronary artery disease) widely patent coronary anatomy with only minor luminal irregularities suggesting mild CAD per 2013 cardiac cath Cirrhosis per records COPD (chronic obstructive pulmonary disease) ESRD (end stage renal disease) dialysis Thursday//Thursday ([place]) GERD (gastroesophageal reflux disease) Hyperlipidemia Hypertension Hypothyroidism Lung cancer dx 06/2019 s/p xrt Non-ischemic cardiomyopathy On home oxygen therapy 2L O2 HS Thrombocytopenia chronic Surgical History H/O partial thyroidectomy GOITER History of bronchoscopy History of cardiac cath 2013- NO STENTS History of colonoscopy History of esophagogastroduodenoscopy (EGD) History of tooth extraction Hx of lumpectomy LEFT S/P arteriovenous (AV) fistula creation Family History Other Family history non-contributory No family history of adverse response to anesthesia Social History Smoking Status: Former smoker Tobacco Type: Cigarettes Second Hand Exposure: Yes (parents smoked); Hx Alcohol Use: No Hx Substance Use: No Preferred Language: Dutch Communication Ability: Effective Supervisor Hardboard Required: No Beliefs That Will Affect Care: None marital status: Current Living Situation: Spouse current occupational status: disabled Feels Safe at Home: Yes Assistive Devices: Oxygen - Continuous Review of Systems A total of 10 systems reviewed and were otherwise negative Physical Exam Vital Signs Vital Signs - 24 hr 07/30/20 04:30 07/30/20 04:45 Temperature 36.4 C L Temperature Source Oral Pulse Rate 67 Respiratory Rate 18 Respiratory Effort / Characteristics Non-Labored Spontaneous Respiratory Depth Normal Blood Pressure 164/68 H Blood Pressure Mean 100 Blood Pressure Position Sitting Pulse Oximetry 98 98 Oxygen Delivery Method Room Air Room Air Sepsis Recent Fever Within 48 Hours No Sepsis New/Unexplained Change in Mental Status No Sepsis Action Taken by Nursing No Action Required VITALS: Vitals are noted on the nurse's note and reviewed by myself. Vital signs stable. GENERAL: White female who appears upset for her recurrent visits, in no acute distress, nondiaphoretic, well-developed well-nourished. SKIN: Capillary reflex less than 2 seconds. HEENT: Normocephalic. PERRLA. EOMI. Nares patent. Mucous membranes moist. Neck is supple without nuchal rigidity. HEART: Regular rate and rhythm LUNGS: Clear to auscultation bilaterally without wheezes, rales or rhonchi. No retractions or accessory muscle use. ABDOMEN: Positive bowel sounds x 4. Normal tympanic percussion. Soft, mild diffuse tenderness without localized pain, without masses or organomegaly. Vera sign negative. No guarding or rebound tenderness. No CVA tenderness MUSCULOSKELETAL: No gross musculoskeletal defects. NEURO: Patient was alert and oriented to person place and time. No focal neurological deficits. Course Administered Medications Discontinued Medications Droperidol (Droperidol 5 Mg/2 Ml Vial) 1.25 mg IV ONE STA Stop: 07/30/20 04:34 Last Admin: 07/30/20 05:00 Dose: 1.25 mg Documented by: [id number] Medical Decision Making Medical Records Attestation: I reviewed the patient's medical records. Home Medications Current Medication List: was personally reviewed by me Laboratory Data Attestation: I reviewed the patient's lab results. Result diagrams: 07/30/20 04:46 07/30/20 04:46 Lab Results 07/30/20 07/30/20 Range/Units 04:46 04:46 MCHC 30.8 L (32-36) g/dL Sodium 137 (136-145) mmol/L Potassium 4.7 (3.5-5.1) mmol/L Chloride 100 (98-107) mmol/L Carbon Dioxide 29 (21-32) mmol/L Anion Gap 8.0 (3-11) BUN 37 H (7-18) mg/dl Creatinine 8.97 H* (0.6-1.2) mg/dl Est Cr Clr Drug Dosing Not Reportable Est GFR ( Amer) 5.0 Est GFR (Non-Af Amer) 4.3 BUN/Creatinine Ratio 4.1 L (10-20) Glucose 139 H (70-99) mg/dl Calcium 7.9 L (8.5-10.1) mg/dl Total Bilirubin 1.8 H (0.2-1) mg/dl AST 28 (15-37) U/L ALT 10 L (12-78) U/L Alkaline Phosphatase 217 H (45-117) U/L Troponin I < 0.015 (0-0.045) ng/ml Total Protein 7.2 (6.4-8.2) gm/dl Albumin 3.0 L (3.4-5.0) gm/dl Globulin 4.2 H (2.5-4.0) gm/dl Albumin/Globulin Ratio 0.7 L (0.9-2) Lipase 127 (73-393) U/L Specimen Hemolysis Imaging Data Attestation: I personally reviewed and interpreted this imaging study as follows: MDM Narrative Prior records/ancillary studies reviewed. Triage Nursing notes reviewed. Additional history obtained from nursing. The patient's history was concerning for abdominal pain. Differential diagnosis: Etiologies such as appendicitis, diverticulitis, PUD, biliary pathology, UTI, pancreatitis, obstruction, mesenteric ischemia, aortic pathology, infections, inflammatory bowel disease, renal colic, as well as others were entertained. Physical examination findings: As above. ER treatment provided: An order was placed for continuous cardiac monitoring. The monitor shows a rate of 60-100 with a sinus rhythm. Droperidol On reassessment the patient felt better. Diagnostics interpreted by me: ECG: Normal sinus, normal levels, anterior septal infarct, no acute ST-T wave changes, rate of 66. Impression normal sinus rhythm with persistent Q waves in the anteroseptal leads interpreted by myself unchanged from prior EKG ordered for vomiting I think arrhythmia is unlikely. EKG shows normal sinus rhythm with no interval abnormalities such as QT prolongation or WPW. There are no findings to suggest Brugada syndrome. Cardiac monitoring in the emergency department reveals no tachycardic or bradycardic dysrhythmia. Hypertrophic cardiomyopathy was considered but there are no clear historical elements pointing toward this. EKG is not suggestive. The labs revealed elevated creatinine, stable per chart review Patient does not make urine Imaging studies: CT ABDOMEN & PELVIS Without Contrast: Comparison 05/03/2014. Incompletely imaged right middle lobe consolidation with high density material which may be calcifications, aspirated barium or other high density material. Bibasilar ground-glass infiltrates or interstitial edema. Several scattered bibasilar lung nodules. Mild pericardial effusion. Mildly nodular liver, suggesting cirrhosis. Splenomegaly, as before with mild melissa-splenic varices, suggesting portal hypertension. Numerous chronic vague hypodense splenic masses, as before measuring up to 11 mm. Several accessory spleens measuring up to 2.4 cm is, as before. Markedly atrophic kidneys, as before, consistent with end-stage renal disease. Extensive diffuse aortic atherosclerosis. No aneurysm. Cholecystectomy. No bowel obstruction. Circumferential thickening of the duodenum with adjacent stranding which may indicate nonspecific duodenitis. Additional thickened small bowel loops in the left abdomen which may reflect nonspecific enteritis. Unremarkable appendix. Thickening versus incomplete distention of the colon. Unable to exclude nons pecific colitis. Mild ascites. No loculated fluid collection. Atrophic uterus. 2 cm fluid containing right inguinal hernia. Radiologist: Cameron Billings M.D. Consultation: A consultation was placed with Dr Cuello. The case was discussed and diagnostics were reviewed. The patient was evaluated in the ER for further treatment. Exam and history seem consistent with intractable nausea and vomiting. Patient is requesting admission and refusing to go home. Medicine was consulted. Stable CAT scan from chart review. Patient will be evaluated for admission. By the evaluation outlined above emergent etiologies such as appendicitis, diverticulitis, PUD, biliary pathology, pancreatitis, obstruction, mesenteric ischemia, aortic pathology, infections, inflammatory bowel disease, renal colic, as well as others were deemed relatively unlikely. The pt informed about the findings as listed above. All questions were answered and pleased with the treatment. The chart was completed utilizing [employer] voice recognition software. Grammatical errors, random word insertions, pronoun errors, and incomplete sentences are an occassional consequence of this system due to software limi tations, ambient noise, and hardware issues. Any formal questions or concerns about the content, text, or information contained within the body of this dictation should be directly addressed to the physician gallery assistant for clarification. Impression & Plan Nausea & vomiting Discharge Plan Visit Data Chief Complaint: Abdominal Pain Stated Complaint: VOMITING, ABD. PAIN- SINCE GALLBLADDER REMOVAL ED Provider: Fe [facility] ED Midlevel Provider: Ceci Morrissey Discharge Problem: Nausea & vomiting Patient Disposition: Being Evaluated by Hospitalist Condition: Fair Forms Stand Alone Forms: My [facility] Prescriptions Prescriptions: No Action metoprolol succinate 25 mg Tablet Extended Release 24 Hr 25 mg PO DAILY RF: 0 trimethobenzamide 300 mg Capsule 300 mg PO Q6H PRN (Reason: Nausea) RF: 0 sennosides [Senokot] 8.6 mg tablet 8.6 mg PO HS Qty: 30 RF: 0 ondansetron HCl [Zofran] 4 mg tablet 4 mg PO Q6H PRN (Reason: nausea and vomiting) Qty: 6 RF: 0 docusate sodium [Colace] 100 mg capsule 200 mg PO BID RF: 0 metoclopramide HCl 10 mg tablet 10 mg PO TID RF: 0 oxycodone 5 mg tablet 5 mg PO Q4 PRN (Reason: pain) RF: 0 albuterol sulfate 2.5 mg /3 mL (0.083 %) Solution For Nebulization 2.5 mg INHALATION DIRECTED PRN (Reason: Shortness Of Breath Or Wheezing) RF: 0 hydralazine 25 mg Tablet 25 mg PO TID RF: 0 calcium acetate(phosphat bind) 667 mg Tablet 667 mg PO TIDM RF: 0 levothyroxine 75 mcg Tablet 75 mcg PO QAM RF: 0 simvastatin 20 mg Tablet 20 mg PO HS RF: 0 amlodipine 10 mg Tablet 10 mg PO QAM RF: 0 pantoprazole 40 mg Tablet,Delayed Release (Dr/Ec) 40 mg PO QAM RF: 0 Referrals Referrals: César Barnes MD [Primary Care Provider] -
[2020-07-30 05:00] LABS: Mean Corpuscular Hgb Conc 30.8 g/dL (32-36)
[2020-07-30 05:40] LABS: Alanine Aminotransferase 10 U/L (12-78); Albumin Globulin Ratio 0.7 (0.9-2); Alkaline Phosphatase 217 U/L (45-117); Aspartate Aminotransferase 28 U/L (15-37); BUN Creatinine Ratio 4.1 (10-20); Bilirubin,Total 1.8 mg/dl (0.2-1); Blood Urea Nitrogen 37 mg/dl (7-18); Calcium 7.9 mg/dl (8.5-10.1); Carbon Dioxide 29 mmol/L (21-32); Chloride 100 mmol/L (98-107); Est GFR (Non-African American) 4.3; Globulin 4.2 gm/dl (2.5-4.0); Glucose 139 mg/dl (70-99); Lipase 127 U/L (73-393); Potassium 4.7 mmol/L (3.5-5.1); Sodium 137 mmol/L (136-145); Total Protein 7.2 gm/dl (6.4-8.2); Troponin I < 0.015 ng/ml (0-0.045)
[2020-07-30] MEDS ORDERED: amLODIPine BESYLATE 5 MG TAB PO STA (05:59)
[2020-07-30 06:21] LABS: Hematocrit (blood only) 46.7 % (37-47); Hemoglobin 14.4 g/dL (12.0-16.0); Mean Corpuscular Hemoglobin 27.3 pg (25-34); Mean Corpuscular Volume 88.4 fL (80-100); RDW Coefficient of Variation 21.7 % (11.5-14.5); RDW Standard Deviation 70.1 fL (36.4-46.3); Red Blood Count 5.28 M/uL (4.2-5.4); White Blood Count 7.59 K/uL (4.8-10.8)
[2020-07-30] MEDS ORDERED: ALBUT/IPRATROP 3MG/0.5MG NEB 3 ML VIAL NEB STA (06:25)
[2020-07-30] MEDS ORDERED: AMPICILLIN/SULBACTAM SOD 3,000 MG in 0.9 % SODIUM CHLORIDE 100 ML IV STA (06:25)
[2020-07-30 06:26] LABS: Platelet Count 62 K/uL (130-400)
--- NOTE | 2020-07-30 06:26 | History & Physical Report ---
Date of Service July 30, 2020 Assessment & Plan (1) COPD exacerbation: Possibly secondary to aspiration pneumonia from intractable nausea, vomiting diarrhea symptoms Protracted gastroparesis since cholecystectomy from last month. No sepsis for now hypertensive urgency secondary to illness chronic diastolic HF 2 to non-ischemic cardiomyopathy (TTE EF 55-60%, 2019), euvolemic to dry CAD/PVD as per records ESRD on hemodialysis breast cancer sp surgery non-small cell lung cancer status post radiation past tobacco abuse, cirrhosis, no overt decompensation chronic thrombocytopenia secondary to cirrhosis, hx pulmonary vasculitis as per records Hyperglycemia rule out DM Malnutrition (low BMI) Medical telemetry Chest x-ray now Unasyn, nebs, steroid course Facilitate home BP meds Analgesia, antiemetics as needed GI consult Re: Intractable and protracted nausea vomiting diarrhea symptoms causing significant weight loss, hx gastroparesis Nephrology consult Re: Dialysis management Nutrition consult Re: Low BMI DVT prophylaxis. SCDs RE thrombocytopenia Full code Text document was generated using [employer] voice recognition software. It may contain grammatical or spelling errors. Kindly contact undersigned for clarification of any documentation item in question. History of Present Illness Chief Complaint: Persistent abdominal pain nausea vomiting symptoms since Primary Care Provider: César Barnes MD History obtained from patient and records. Medical history significant for chronic respiratory failure secondary to COPD/ILD on home O2, hypertension, chronic diastolic HF 2 to non-ischemic cardiomyopathy (TTE EF 55-60%, 2019), CAD/PVD as per records, ESRD on hemodialysis, breast cancer sp surgery, non-small cell lung cancer status post radiation, past tobacco abuse, GERD, gastroparesis as per records, hypothyroidism, cirrhosis, chronic thrombocytopenia, hx pulmonary vasculitis as per records. Recent confinement from June 28-2019 for persistent nausea, vomiting, diarrhea symptoms post cholecystectomy (06/18/20). Stool work-up unremarkable. GI recommended antiemetics and outpati ent colonoscopy. Persistent symptoms associated with epigastric discomfort following discharge from the hospital. No unusual headache symptoms. About 15 pound weight loss. 2 ER visits for intractable symptoms so far this month. Patient seen by GI outpatient last week. Repeat EGD contemplated as per documentation. Symptoms unresponsive to Reglan and Phenergan suppository prescriptions from GI in the last week. Patient noted junky cough symptoms more than usual the last 2 days. No fever, no chills, some shortness of breath and noisy breathing noted at home. Patient brought to the ER for evaluation. MEDICAL HISTORY: As above. 06/26/2020 EGD showed normal gastric fundus and gastric body. Multiple gastric polyps. 2013 colonoscopy showed internal hemorrhoids Hemodialysis Thursday SURGERIES: Mastectomy, thyroidectomy, vascular procedures, back surgery. FAMILY HISTORY: Breast cancer, stroke. PERSONAL AND SOCIAL HISTORY: Past tobacco abuse. No chronic intake of alcohol. Disabled. Allergies Allergy/AdvReac Type Severity Reaction Status Date / Time atropine Allergy Severe Dyspnea Verified 07/30/20 04:44 linezolid Allergy Severe Thrombocyto Verified 07/30/20 04:44 penia naproxen Allergy Severe Facial Verified 07/30/20 04:44 edema dipyridamole Allergy Intermediate "Bad Verified 07/30/20 04:44 reaction" per records vancomycin Allergy Intermediate Rash/tommy Verified 07/30/20 04:44 syndrome aspirin AdvReac Intermediate Abdominal Verified 07/30/20 04:44 cramping Home Medications Medication Instructions Recorded Confirmed Type albuterol sulfate 2.5 mg INHALATION DIRECTED PRN 11/02/18 07/30/20 History calcium acetate(phosphat bind) 667 mg PO TIDM 11/02/18 07/30/20 History hydralazine 25 mg PO TID 11/02/18 07/30/20 History levothyroxine 75 mcg PO QAM 11/02/18 07/30/20 History simvastatin 20 mg PO HS 11/02/18 07/30/20 History amlodipine 10 mg PO QAM 07/14/19 07/30/20 History pantoprazole 40 mg PO QAM 07/14/19 07/30/20 History metoprolol succinate 25 mg PO DAILY 11/19/19 07/30/20 History trimethobenzamide 300 mg PO Q6H PRN 07/19/20 07/30/20 History ondansetron HCl [Zofran] 4 mg PO Q6H PRN #6 tab 07/23/20 07/30/20 Rx sennosides [Senokot] 8.6 mg PO HS #30 tab 07/23/20 07/30/20 Rx docusate sodium [Colace] 200 mg PO BID 07/30/20 07/30/20 History metoclopramide HCl 10 mg PO TID 07/30/20 07/30/20 History oxycodone 5 mg PO Q4 PRN 07/30/20 07/30/20 History Past Med/Surg History Medical History (Updated 07/30/20 @ 08:20 by Darell Cuello MD) Abdominal pain, acute, right lower quadrant Anemia of chronic renal failure AV fistula LUE Breast cancer s/p chemo/xrt CAD (coronary artery disease) widely patent coronary anatomy with only minor luminal irregularities suggesting mild CAD per 2014 cardiac cath Cirrhosis per records COPD (chronic obstructive pulmonary disease) ESRD (end stage renal disease) dialysis Thursday//Thursday ([place]) GERD (gastroesophageal reflux disease) Hyperlipidemia Hypertension Hypothyroidism Lung cancer dx 06/2019 s/p xrt Non-ischemic cardiomyopathy On home oxygen therapy 2L O2 HS Thrombocytopenia chronic Surgical History H/O partial thyroidectomy GOITER History of bronchoscopy History of cardiac cath 2013- NO STENTS History of colonoscopy History of esophagogastroduodenoscopy (EGD) History of tooth extraction Hx of lumpectomy LEFT S/P arteriovenous (AV) fistula creation Family History Other Family history non-contributory No family history of adverse response to anesthesia Social History Smoking Status: Former smoker Tobacco Type: Cigarettes Second Hand Exposure: Yes (parents smoked); Hx Alcohol Use: No Hx Substance Use: No Preferred Language: Irish Communication Ability: Effective Manager Event Required: No Beliefs That Will Affect Care: None marital status: Current Living Situation: Spouse current occupational status: disabled Feels Safe at Home: Yes Assistive Devices: Oxygen - Continuous Review of Systems Review of Systems: As per HPI, all 10 systems reviewed, all other ROS negative Physical Exam Physical Exam: GENERAL: uncomfortable, chronically ill, underweight, no respiratory distress SKIN: Normal color, warm HEENT: [place] palpebral conjunctivae, no ptosis, dry buccal mucosa NECK : Supple, no tenderness CHEST : Bilateral rhonchi with expiratory wheezes, no tenderness HEART : RRR, no obvious murmurs ABDOMEN: Some distention, minimal epigastric tenderness r EXTREMITIES : No LE swelling/tenderness, no other conspicuous deformities noted NEUROLOGIC : Coherent, no facial asymmetry, no other gross focality Results & Data Results & Data ([facility]) Vital Signs (Past 12 Hours) Vital Signs Temp Pulse Pulse Resp BP BP Pulse Ox 07/30/20 06:00 74 20 192/78 H 100 07/30/20 04:45 98 07/30/20 04:30 36.4 C L 67 18 164/68 H 98 Laboratory Results Laboratory Results WBC 7.59 K/uL (4.8-10.8) 07/30/20 04:46 RBC 5.28 M/uL (4.2-5.4) 07/30/20 04:46 Hgb 14.4 g/dL (12.0-16.0) 07/30/20 04:46 Hct 46.7 % (37-47) 07/30/20 04:46 MCV 88.4 fL (80-100) 07/30/20 04:46 MCH 27.3 pg (25-34) 07/30/20 04:46 MCHC 30.8 g/dL (32-36) L 07/30/20 04:46 RDW Std Deviation 70.1 fL (36.4-46.3) H 07/30/20 04:46 RDW Coeff of Dave 21.7 % (11.5-14.5) H 07/30/20 04:46 Sodium 137 mmol/L (136-145) 07/30/20 04:46 Potassium 4.7 mmol/L (3.5-5.1) 07/30/20 04:46 Chloride 100 mmol/L (98-107) 07/30/20 04:46 Carbon Dioxide 29 mmol/L (21-32) 07/30/20 04:46 Anion Gap 8.0 (3-11) 07/30/20 04:46 BUN 37 mg/dl (7-18) H 07/30/20 04:46 Creatinine 8.97 mg/dl (0.6-1.2) H* 07/30/20 04:46 Est Cr Clr Drug Dosing Not Reportable 07/30/20 04:46 Est GFR ( Amer) 5.0 07/30/20 04:46 Est GFR (Non-Af Amer) 4.3 07/30/20 04:46 BUN/Creatinine Ratio 4.1 (10-20) L 07/30/20 04:46 Glucose 139 mg/dl (70-99) H 07/30/20 04:46 Calcium 7.9 mg/dl (8.5-10.1) L 07/30/20 04:46 Total Bilirubin 1.8 mg/dl (0.2-1) H 07/30/20 04:46 AST 28 U/L (15-37) 07/30/20 04:46 ALT 10 U/L (12-78) L 07/30/20 04:46 Alkaline Phosphatase 217 U/L (45-117) H 07/30/20 04:46 Troponin I < 0.015 ng/ml (0-0.045) 07/30/20 04:46 Total Protein 7.2 gm/dl (6.4-8.2) 07/30/20 04:46 Albumin 3.0 gm/dl (3.4-5.0) L 07/30/20 04:46 Globulin 4.2 gm/dl (2.5-4.0) H 07/30/20 04:46 Albumin/Globulin Ratio 0.7 (0.9-2) L 07/30/20 04:46 Lipase 127 U/L (73-393) 07/30/20 04:46 Specimen Hemolysis 07/30/20 04:46 SARS-CoV-2 Ag (Rapid) Negative (Negative) 07/30/[address] abdomen pelvis initial read: Right middle lobe consolidation with high density material which may be calcification, aspirated volume of high density material. Bibasilar groundglass infiltrates or interstitial edema. Several scattered bibasilar lung nodules. Mild pericardial effusion. Nodular liver. Splenomegaly. Numerous hypodense splenic masses. Atrophic kidneys. Accessory spleens. Extensive diffuse aortic atherosclerosis. Cholecystectomy. No bowel obstruction. Nonspecific duodenitis. Unremarkable appendix. Thickening versus incomplete distention of the colon. Unable to exclude nonspecific colitis. Mild ascites. Atrophic uterus. 2 cm fluid containing right inguinal hernia. EKG as per my interpretation: Rate 65, NSR, normal axis, LVH, no ischemia
[2020-07-30 06:27] LABS: Anisocytosis Present; Basophils # (auto) 0.01 K/uL (0-0.2); Basophils % (auto) 0.1 %; Eosinophils # (auto) 0.03 K/uL (0-0.5); Eosinophils % (auto) 0.4 %; Immature Granulocytes # (auto) 0.13 K/uL (0.00-0.02); Immature Granulocytes % (auto) 1.7 %; Lymphocytes # (auto) 0.44 K/uL (1.2-3.4); Lymphocytes % (auto) 5.8 %; Monocytes # (auto) 0.48 K/uL (0.11-0.59); Monocytes % (auto) 6.3 %; Neutrophils % (auto) 85.7 %; Platelet Estimate Decreased (Normal); Polychromasia 1+
[2020-07-30] MEDS ORDERED: DEXAMETHASONE SOD INJ 10 MG/ML VIAL IV STA (06:35)
[2020-07-30 06:42] LABS: Magnesium 2.1 mg/dl (1.8-2.4)
--- NOTE | 2020-07-30 06:56 | CT Scan Report ---
CT OF THE ABDOMEN AND PELVIS WITHOUT CONTRAST CLINICAL HISTORY: Abdominal pain and distention. COMPARISON STUDY: CT of the abdomen and pelvis July 23, 2020. TECHNIQUE: Axial images of the abdomen and pelvis were obtained without IV contrast. Images were revi ewed in the axial, sagittal, and coronal planes. Automated exposure control was utilized for the patrice dy. A dose lowering technique was utilized adhering to the principles of ALARA. FINDINGS: Imaged portions of the chest partially visualize extensive hyperdense right middle lobe [place]. There are bilateral lower lobe airspace opacities which are hyperdense, greater on the right. T hese include a 3 cm right lower lobe hyperdensity. Interlobular septal thickening is noted with groun dglass opacities and small pulmonary nodules. Evaluation of the abdomen and pelvis is suboptimal as u nenhanced examination. The liver is cirrhotic. Innumerable hypodensities within the spleen are chroni c. Slight dilatation of the common bile duct is unchanged. This is likely related to cholecystectomy. Unenhanced images of the pancreas are unremarkable. There is marked atrophy of both kidneys. Note is made of mild wall thickening and infiltration adjacent to the duodenum and several jejunal loops. Th ere is mild mesenteric infiltration associated with several jejunal loops. This has developed since p rior examination. Extensive atherosclerotic plaque of the abdominal aorta is noted. There is no evide nce for acute appendicitis. Submucosal fat deposition within the colon is noted. There is mild coloni c wall thickening. A small amount of ascites is increased since prior examination. There is no eviden ce for a bowel obstruction. No suspicious lesions are identified within visualized skeletal structure s. There is no lymphadenopathy. Small right inguinal hernia contains a small amount of ascites. IMPRESSION: 1. Interval development of duodenal wall thickening and wall thickening and associated mesenteric inf iltration associated with multiple jejunal loops. This favors a nonspecific enteritis. 2. Mild colonic wall thickening with submucosal fat deposition. This is likely chronic however a nons pecific colitis cannot be excluded. 3. Interval increase in ascites. 4. Cirrhosis with evidence for portal hypertension. Stable splenomegaly and innumerable hypodense spl enic lesions. 5. Redemonstration of numerous irregular hyperdense foci within the lower lungs, the largest of which is within the right middle lobe. This favors aspirated material. Interlobular septal thickening and groundglass opacities are similar to prior exam. Short-term follow-up chest CT is recommended in 2 mo nt. ACT 112: Negative or not required by law. Electronically signed by: Hemal Rushing M.D. 07/30/2020 6:55 AM
--- NOTE | 2020-07-30 08:42 | XRay Report ---
XR chest 1V portable CLINICAL HISTORY: cough, sob COMPARISON STUDY: 06/05/2020 FINDINGS: The cardiac and mediastinal contours remain stable. There is persistent diffuse interstitia l thickening. There is a persistent right middle lobe opacity, possibly representing chronic right mi ddle lobe syndrome. There are subsegmental atelectatic changes at the lung bases. There are surgical clips projected over the left axillary region. There is a vascular stent projected over the left axil [place] region.[ IMPRESSION: 1. Persistent masslike opacity within the right middle lobe, possibly representing chronic right midd le lobe syndrome. 2. Diffuse interstitial thickening. Diagnostic considerations include chronic interstitial lung disea se, interstitial cardiogenic edema, or a bilateral interstitial infectious/inflammatory process. 3. Clinical and radiographic follow-up is recommended. ACT 112: Negative or not required by law. Electronically signed by: Rip Prince M.D. 07/30/2020 8:40 AM
[2020-07-30] MEDS ORDERED: XOPENEX/ATROVENT 1.25mg/0.5MG NEB COMBO NEB SCH (11:43)
[2020-07-30] MEDS ORDERED: ACETAMINOPHEN 325 MG TAB PO PRN (11:43)
[2020-07-30] MEDS ORDERED: METOCLOPRAMIDE HCL INJ 5 MG/ML 2 ML VIAL IV PRN (11:43)
[2020-07-30] MEDS ORDERED: oxyCODONE HCL IR 5 MG TAB (IMMEDIATE RELEASE) PO PRN (11:54)
[2020-07-30] MEDS ORDERED: AMPICILLIN/SULBACTAM CONSULT ACTIVE PRN (12:34)
[2020-07-30] MEDS ORDERED: HEPARIN SOD (PORCINE) 1000 UNIT/ML 10 ML VIAL IV ONE (12:38)
[2020-07-30] MEDS ORDERED: SODIUM CHLORIDE 0.9% 1000ML 1,000 ML IV PRN (12:38)
[2020-07-30] MEDS: METOPROLOL SUCC 25MG EXT REL TAB PO SCH (12:47)
[2020-07-30] MEDS: CALCIUM ACETATE 667 MG CAP/TAB PO SCH ×2 (12:48→17:16)
[2020-07-30] MEDS: LEVOTHYROXINE SODIUM 75 MCG TABLET PO SCH (12:48)
[2020-07-30] MEDS: PANTOprazole 40 MG TAB PO SCH (12:48)
[2020-07-30] MEDS: LEVALBUTEROL 1.25MG/0.5ML NEB INH SCH ×2 (13:00→19:21)
[2020-07-30] MEDS: IPRATROPIUM BROMIDE NEB SOLN 0.02% 2.5 ML VIAL INH SCH ×2 (13:00→19:21)
[2020-07-30] MEDS: hydrALAZINE HCL 25 MG TAB PO SCH ×2 (13:41→20:41)
[2020-07-30 13:45] LABS: Estimated Average Glucose 68 mg/dl; Hemoglobin A1C < 4.0 % (4.5-5.6)
--- NOTE | 2020-07-30 17:12 | Hospitalist Progress Note ---
Date of Service July 30, 2020 Assessment & Plan (1) COPD exacerbation: Possibly secondary to aspiration pneumonia from intractable nausea, vomiting CXR showed persistent masslike opacity within the right middle lobe, possibly representing chronic right middle lobe syndrome. Diffuse interstitial thickening. COVID 19 negative Continue Unasyn and dexamethasone for now Will add guaifenesin for the cough Continue neb treatment Continue monitor closely Nausea/Vomiting/Diarrhea Hx Gastroparesis CT abd/pelvis showed interval development of duodenal wall thickening and wall thickening and associated mesenteric infiltration associated with multiple jejunal loops. Mild colonic wall thickening with submucosal fat deposition. Interval increase in ascites S/P laparoscopically cholecystectomy 06/18/2020 S/P EGD, ERCP revealing gastric polyps status post resection 06/15/2020 Gastro consult During last admission GI was planing to arrange colonoscopy for chronic diarrhea but but wanted to wait until fully recover from cholecystectomy Continue clear liquid diet Continue Phenergan, Reglan and PPI Continue monitor electrolytes ESRD Nephrology on board Continue HD on Thursday//Thu Stable Liver cirrhosis Compensated No sign of fluid overload Thrombocytopenia Due to Cirrhosis Platelet 60's on admission No sign of bleeding Continue monitor CBC History of CAD, nonischemic cardiomyopathy Denies any chest pain Continue metoprolol, simvastatin Hypertension BP stable continue hydralazine 3 times daily and metoprolol DVT prophylaxis SCDs due to Thrombocytopenia CODE STATUS Full code Admission and Anticipated Discharge Date Admission Date: July 30, 2020 Subjective Pt was seen and examined Lying in bed with no distress Pt said that she has been having nausea and vomiting She said that anything she put in her mouth she vomits She said that she has been having a productive cough with greenish sputum she said that she feels weak Denies any chest pain, palpitation, dizziness and fever Physical Exam Physical Exam: General- No acute distress, frail Head- atraumatic Eyes- PERRL, EOMI, ENT- oropharynx clear Neck- supple, no JVD Lungs- +coarse BS Heart- regular rhythm; no murmur Abdomen- normal bowel sounds, soft, nontender Extremities- no calf tenderness Neuro- alert, oriented x 3; PERRL, EOMI; no facial palsy; no dysarthria Skin- warm & dry Results & Data Results & Data ([facility]) Vital Signs (Past 12 Hours) Vital Signs Temp Pulse Pulse Pulse Resp BP BP 07/30/20 16:40 70 125/65 07/30/20 16:20 71 128/64 07/30/20 16:00 68 130/59 L 07/30/20 15:40 69 135/67 07/30/20 15:20 74 136/63 07/30/20 15:00 73 131/66 07/30/20 14:40 69 131/62 07/30/20 14:20 73 125/65 07/30/20 14:00 81 131/68 07/30/20 13:40 73 135/67 07/30/20 13:20 74 148/66 H 07/30/20 13:12 36.9 C 73 07/30/20 13:00 69 18 07/30/20 11:51 36.5 C 64 70 18 168/54 H 07/30/20 10:56 70 16 169/72 H 07/30/20 08:05 70 16 07/30/20 06:00 74 20 192/78 H Pulse Ox 07/30/20 16:40 07/30/20 16:20 07/30/20 16:00 07/30/20 15:40 07/30/20 15:20 07/30/20 15:00 07/30/20 14:40 07/30/20 14:20 07/30/20 14:00 07/30/20 13:40 07/30/20 13:20 07/30/20 13:12 07/30/20 13:00 99 07/30/20 11:51 98 07/30/20 10:56 100 07/30/20 08:05 100 07/30/20 06:00 100
[2020-07-30] MEDS: AMPICILLIN/SULBACTAM SOD 3,000 MG in 0.9 % SODIUM CHLORIDE 100 ML IV SCH (17:52)
[2020-07-30] MEDS: HEPARIN SOD (PORCINE) 1000 UNIT/ML 10 ML VIAL IV SCH ×2 (17:59→18:00)
--- NOTE | 2020-07-30 20:02 | Nephrology Consultation ---
Date of Consultation July 30, 2020 Assessment & Plan (1) ESRD (end stage renal disease) on dialysis: on TRSat HD >> dialyzed today to keep her on TRSat schedule during and w/ aggressive UF relatively since is new for her relatively -next HD on 08/01 or as clinical needs dictate -no GRACIE indicated today Present on Admission?: Yes (2) Nausea vomiting and diarrhea: per admitting service and GI; hx of recurrent GI polyps; ? if small bowel enteritis on CT has a role too Present on Admission?: Yes (3) Non-small cell lung cancer (NSCLC): s/p XRT; saw rad onc earlier this month; ? if any acute lung process here -had discussed in past w/ pulm, rad onc and opted to continue GRACIE at dialysis as indicated Present on Admission?: Yes (4) Thrombocytopenia: 60-90K on [facility] labs since spring 2019 > at lower end of this range today; ? d/t liver dz >mini heparin w/ HD today and OP orders other days -monitor CBC at least q48 hrs Present on Admission?: Yes History of Present Illness Reason for Consultation: esrd on HD Requesting Physician: Dr Nichols Attending Physician: Ronaldo Borjas MD History of Present Illness 60 y/o F whom I'm asked to see for ESRD care was admitted early this am for evaluation of uncontrolled n/v with generalized weakness after multiple ER visits and admissino here 06/29-07/01 for same. Pt has been under my care for several years until recently; she struggles w/ chronic n/v. however these sx worsened dramatically she states after 06/18/20 cholecystectomy. Complex PMH includes ESRD on TRSat HD, gastroparesis, recurrent gastric polyps, non small cell lung adenoCA dx'd 04/2019 s/p XRT, chronic respiratory failure on 2L 30/03, nonischemic [employer] w/ subsequent normalization LV function, liver cirrhosis and chronic thrombocytopenia, remote BRCA and partial thyroidectomy. Allergies Allergy/AdvReac Type Severity Reaction Status Date / Time atropine Allergy Severe Dyspnea Verified 07/30/20 04:44 linezolid Allergy Severe Thrombocyto Verified 07/30/20 04:44 penia naproxen Allergy Severe Facial Verified 07/30/20 04:44 edema dipyridamole Allergy Intermediate "Bad Verified 07/30/20 04:44 reaction" per records vancomycin Allergy Intermediate Rash/tommy Verified 07/30/20 04:44 syndrome aspirin AdvReac Intermediate Abdominal Verified 07/30/20 04:44 cramping Home Medications Medication Instructions Recorded Confirmed Type albuterol sulfate 2.5 mg INHALATION DIRECTED PRN 11/02/18 07/30/20 History calcium acetate(phosphat bind) 667 mg PO TIDM 11/02/18 07/30/20 History hydralazine 25 mg PO TID 11/02/18 07/30/20 History levothyroxine 75 mcg PO QAM 11/02/18 07/30/20 History simvastatin 20 mg PO HS 11/02/18 07/30/20 History amlodipine 10 mg PO QAM 07/14/19 07/30/20 History pantoprazole 40 mg PO QAM 07/14/19 07/30/20 History metoprolol succinate 25 mg PO DAILY 11/19/19 07/30/20 History trimethobenzamide 300 mg PO Q6H PRN 07/19/20 07/30/20 History ondansetron HCl [Zofran] 4 mg PO Q6H PRN #6 tab 07/23/20 07/30/20 Rx sennosides [Senokot] 8.6 mg PO HS #30 tab 07/23/20 07/30/20 Rx docusate sodium [Colace] 200 mg PO BID 07/30/20 07/30/20 History metoclopramide HCl 10 mg PO TID 07/30/20 07/30/20 History oxycodone 5 mg PO Q4 PRN 07/30/20 07/30/20 History Patient History Medical History Abdominal pain, acute, right lower quadrant Anemia of chronic renal failure AV fistula LUE Breast cancer s/p chemo/xrt CAD (coronary artery disease) widely patent coronary anatomy with only minor luminal irregularities suggesting mild CAD per 2013 cardiac cath Cirrhosis per records COPD (chronic obstructive pulmonary disease) ESRD (end stage renal disease) dialysis Thursday//Thursday ([place]) GERD (gastroesophageal reflux disease) Hyperlipidemia Hypertension Hypothyroidism Non-ischemic cardiomyopathy Non-small cell lung cancer (NSCLC) dx 04/2019; s/p XRT; RML On home oxygen therapy 2L O2 HS Splenomegaly, not elsewhere classified w/ multiple hypodense masses stable on fall 2019 imaging and present since at least 2005 Thrombocytopenia chronic Surgical History H/O partial thyroidectomy GOITER History of bronchoscopy History of cardiac cath 2013- NO STENTS History of colonoscopy History of esophagogastroduodenoscopy (EGD) History of tooth extraction Hx of lumpectomy LEFT S/P arteriovenous (AV) fistula creation Family History Other Family history non-contributory No family history of adverse response to anesthesia Social History Smoking Status: Former smoker Tobacco Type: Cigarettes Second Hand Exposure: Yes (parents smoked); Hx Alcohol Use: No Hx Substance Use: No Preferred Language: Kyrgyz Communication Ability: Effective Physiology Teacher Required: No Beliefs That Will Affect Care: None marital status: Current Living Situation: Spouse current occupational status: disabled Feels Safe at Home: Yes Safety Concerns: Feels Safe At This Time Assistive Devices: Oxygen - Continuous Review of Systems Review of Systems: All systems reviewed & are unremarkable except as noted in HPI & below Constitutional: + fatigue, + weakness and + anorexia; no fever and no body ac hes Respiratory: + cough; no dyspnea Gastrointestinal: + nausea, + vomiting and + diarrhea/loose stools Musculoskeletal: + muscle weakness Physical Exam Constitutional: well developed, + thin, + frail appearing and cooperative; no acute distress Eyes: EOM intact bilaterally ENMT: Ears: no external ear abnormality Nose: no external nose abnormality Mouth: + dry oral mucous membranes Neck: no nuchal rigidity Respiratory: normal respiratory effort ([id number]); no respiratory distress Auscultation: lungs clear to auscultation bilaterally and + diminished lung sounds Cardiovascular: Rate/Rhythm: regular rate and regular rhythm Extremities: + edema (trace) and + AV fistula (LUE + t/b) Gastrointestinal (Abdomen): Inspection/Auscultation: normal bowel sounds Percussion/Palpation: abdomen soft; abdomen nontender Musculoskeletal: Extremities: + abnormal strength and + muscle atrophy Skin: no rashes, warm and dry Neurologic: yao, fluent speech, no tremor; marked generalized weakness Psychiatric: Orientation: alert and oriented x 3 Eye Contact: good eye contact Speech: normal rate/rhythm/volume of speech Affect: + flat affect Results & Data ([facility]) Vital Signs (Past 12 Hours) Vital Signs Temp Pulse Pulse Pulse Pulse Resp BP 07/30/20 19:21 69 18 07/30/20 19:02 36.4 C L 71 16 07/30/20 17:15 36.5 C 67 07/30/20 16:40 70 125/65 07/30/20 16:20 71 128/64 07/30/20 16:00 68 130/59 L 07/30/20 15:40 69 135/67 07/30/20 15:20 74 136/63 07/30/20 15:00 73 131/66 07/30/20 14:40 69 131/62 07/30/20 14:20 73 125/65 07/30/20 14:00 81 131/68 07/30/20 13:40 73 135/67 07/30/20 13:20 74 148/66 H 07/30/20 13:12 36.9 C 73 07/30/20 13:00 69 18 07/30/20 11:51 36.5 C 64 70 18 07/30/20 10:56 70 16 169/72 H 07/30/20 08:05 70 16 BP Pulse Ox 07/30/20 19:21 99 07/30/20 19:02 154/63 H 100 07/30/20 17:15 135/59 L 07/30/20 16:40 07/30/20 16:20 07/30/20 16:00 07/30/20 15:40 07/30/20 15:20 07/30/20 15:00 07/30/20 14:40 07/30/20 14:20 07/30/20 14:00 07/30/20 13:40 07/30/20 13:20 07/30/20 13:12 07/30/20 13:00 99 07/30/20 11:51 168/54 H 98 07/30/20 10:56 100 07/30/20 08:05 100 Laboratory Results 07/30/20 04:46 07/30/20 04:46 Diagnostic Findings abd/pelvis ct today 1. Interval development of duodenal wall thickening and wall thickening and associated mesenteric infiltration associated with multiple jejunal loops. This favors a nonspecific enteritis. 2. Mild colonic wall thickening with submucosal fat deposition. This is likely chronic however a nonspecific colitis cannot be excluded. 3. Interval increase in ascites. 4. Cirrhosis with evidence for portal hypertension. Stable splenomegaly and innumerable hypodense splenic lesions. 5. Redemonstration of numerous irregular hyperdense foci within the lower lungs, the largest of which is within the right middle lobe. This favors aspirated material. Interlobular septal thickening and groundglass opacities are similar to prior exam. Short-term follow-up chest CT is recommended in 2 months. cxr 1. Persistent masslike opacity within the right middle lobe, possibly representing chronic right middle lobe syndrome. 2. Diffuse interstitial thickening. Diagnostic considerations include chronic interstitial lung disease, interstitial cardiogenic edema, or a bilateral interstitial infectious/inflammatory process. 3. Clinical and radiographic follow-up is recommended. (1) Non-small cell lung cancer (NSCLC) Laterality: right Qualified Code(s): C34.91 - Malignant neoplasm of unspecified part of right bronchus or lung
[2020-07-30] MEDS: SIMVASTATIN 20 MG TAB PO SCH (20:41)
--- NOTE | 2020-07-30 20:42 | Dialysis Progress Note ---
Date of Service July 30, 2020 Assessment & Plan (1) ESRD (end stage renal disease) on dialysis: on TRSat HD >> dialyzed today to keep her on TRSat schedule during and w/ aggressive UF relatively since is new for her relatively >> got 1.8L off -next HD on 08/01 or as clinical needs dictate -no GRACIE indicated today (2) Nausea vomiting and diarrhea: per admitting service and GI; hx of recurrent GI polyps; ? if small bowel enteritis on CT has a role too (3) Non-small cell lung cancer (NSCLC): s/p XRT; saw rad onc earlier this month; ? if any acute lung process here -had discussed in past w/ pulm, rad onc and opted to continue GRACIE at dialysis as indicated (4) Thrombocytopenia: 60-90K on [facility] labs since spring 2019 > at lower end of this range today; ? d/t liver dz >mini heparin w/ HD today and OP orders other days -monitor CBC at least q48 hrs Admission and Anticipated Discharge Date Admission Date: July 30, 2020 Subjective seen on dialysis; tolerating tx well but had to dial UF back; seen approx 16 20 Review of Systems Review of Systems: All systems reviewed & are unremarkable except as noted in HPI & below Respiratory: + cough (chronic stable); no chest congestion and no dyspnea Gastrointestinal: + nausea, + vomiting and + diarrhea/loose stools anorexia Physical Exam Constitutional: well developed, + thin, + frail appearing and cooperative Eyes: EOM intact bilaterally ENMT: Ears: no external ear abnormality Nose: no external nose abnormality Mouth: + dry oral mucous membranes Neck: no nuchal rigidity Respiratory: normal respiratory effort Auscultation: lungs clear to auscultation bilaterally (anter exam on ) and + diminished lung sounds Cardiovascular: Rate/Rhythm: regular rate and regular rhythm Extremities: + edema (trace) and + AV fistula (+ t/b lue) Gastrointestinal (Abdomen): Inspection/Auscultation: normal bowel sounds Percussion/Palpation: abdomen soft; abdomen nontender Musculoskeletal: Extremities: + abnormal strength Skin: no rashes, warm and dry Neurologic: yao but marked generalized weakness, fluent speech, no tremor Psychiatric: Eye Contact: good eye contact Speech: normal rate/rhythm/volume of speech Affect: + flat affect Results & Data ([facility]) Vital Signs (Past 12 Hours) Vital Signs Temp Pulse Pulse Pulse Pulse Resp BP 07/30/20 19:21 69 18 07/30/20 19:02 36.4 C L 71 16 07/30/20 17:15 36.5 C 67 07/30/20 16:40 70 125/65 07/30/20 16:20 71 128/64 07/30/20 16:00 68 130/59 L 07/30/20 15:40 69 135/67 07/30/20 15:20 74 136/63 07/30/20 15:00 73 131/66 07/30/20 14:40 69 131/62 07/30/20 14:20 73 125/65 07/30/20 14:00 81 131/68 07/30/20 13:40 73 135/67 07/30/20 13:20 74 148/66 H 07/30/20 13:12 36.9 C 73 07/30/20 13:00 69 18 07/30/20 11:51 36.5 C 64 70 18 07/30/20 10:56 70 16 169/72 H BP Pulse Ox 07/30/20 19:21 99 07/30/20 19:02 154/63 H 100 07/30/20 17:15 135/59 L 07/30/20 16:40 07/30/20 16:20 07/30/20 16:00 07/30/20 15:40 07/30/20 15:20 07/30/20 15:00 07/30/20 14:40 07/30/20 14:20 07/30/20 14:00 07/30/20 13:40 07/30/20 13:20 07/30/20 13:12 07/30/20 13:00 99 07/30/20 11:51 168/54 H 98 07/30/20 10:56 100 Laboratory Results labs and imaging reviewed (1) Non-small cell lung cancer (NSCLC) Laterality: right Qualified Code(s): C34.91 - Malignant neoplasm of unspecified part of right bronchus or lung
[2020-07-31] MEDS: LEVALBUTEROL 1.25MG/0.5ML NEB INH SCH ×4 (00:06→19:52)
[2020-07-31] MEDS: IPRATROPIUM BROMIDE NEB SOLN 0.02% 2.5 ML VIAL INH SCH ×4 (00:06→19:52)
--- NOTE | 2020-07-31 05:43 | Electrocardiogram Report ---
Test Reason : Blood Pressure : / mmHG Vent. Rate : 066 BPM Atrial Rate : 066 BPM P-R Int : 144 ms QRS Dur : 084 ms QT Int : 478 ms P-R-T Axes : 043 011 095 degrees QTc Int : 501 ms Normal sinus rhythm Minimal voltage criteria for LVH, may be normal variant Anteroseptal infarct (cited on or before 26-MAR-2017) Prolonged QT Abnormal ECG When compared with ECG of 19-JUL-2020 06:59, No significant change was found Confirmed by Сергей Wilkerson ([id number]) on 07/31/2020 5:43:18 AM Referred By: REFERRED SELF Confirmed By:Сергей Wilkerson
[2020-07-31] MEDS: LEVOTHYROXINE SODIUM 75 MCG TABLET PO SCH (06:06)
[2020-07-31 06:07] LABS: Hematocrit (blood only) 35.9 % (37-47); Hemoglobin 10.8 g/dL (12.0-16.0); Mean Corpuscular Hemoglobin 26.8 pg (25-34); Mean Corpuscular Hgb Conc 30.1 g/dL (32-36); Mean Corpuscular Volume 89.1 fL (80-100); Mean Platelet Volume 10.2 fL (7.4-10.4); Platelet Count 47 K/uL (130-400); RDW Coefficient of Variation 21.3 % (11.5-14.5); RDW Standard Deviation 69.6 fL (36.4-46.3); Red Blood Count 4.03 M/uL (4.2-5.4); White Blood Count 4.36 K/uL (4.8-10.8)
[2020-07-31 06:30] LABS: Anisocytosis Present; Hypochromasia Present; Immature Granulocytes # (auto) 0.04 K/uL (0.00-0.02); Immature Granulocytes % (auto) 0.9 %; Lymphocytes # (auto) 0.39 K/uL (1.2-3.4); Lymphocytes % (auto) 8.9 %; Monocytes % (auto) 4.6 %; Neutrophils # (auto) 3.73 K/uL (1.4-6.5); Neutrophils % (auto) 85.6 %; Polychromasia 1+
[2020-07-31 06:45] LABS: Calcium 7.5 mg/dl (8.5-10.1); Est GFR (African American) 10.9; Est GFR (Non-African American) 9.4; Potassium 3.8 mmol/L (3.5-5.1)
[2020-07-31] MEDS: CALCIUM ACETATE 667 MG CAP/TAB PO SCH ×3 (09:15→16:21)
[2020-07-31] MEDS: hydrALAZINE HCL 25 MG TAB PO SCH ×3 (09:15→20:19)
[2020-07-31] MEDS ORDERED: FOSAPREPITANT DIMEGLUMINE 115 MG in 0.9 % SODIUM CHLORIDE 111.2 ML IV ONE (09:15)
[2020-07-31] MEDS: PANTOprazole 40 MG TAB PO SCH (09:16)
[2020-07-31] MEDS: amLODIPine BESYLATE 5 MG TAB PO SCH (09:16)
[2020-07-31] MEDS: predniSONE 20 MG TAB PO SCH (09:16)
[2020-07-31] MEDS: METOPROLOL SUCC 25MG EXT REL TAB PO SCH (09:16)
--- NOTE | 2020-07-31 10:47 | Gastrointestinal Consultation ---
Date of Consultation July 31, 2020 Assessment & Plan (1) Nausea vomiting and diarrhea: Pt is a 60 y/o female readmitted for n/v, diarrhea symptoms. Hx of GERD, gastroparesis, multiple gastric polyp s/p EMR. She is also s/p cholecystectomy. CT abd/pelvis w signs of possible enteritis, non specific colitis, cirrhosis w portal HTN, and ascites. - Check stool cx and Cdiff to r/o infection - Colestipol 1g BID for possible bile acid diarrhea - U/S paracentesis for ascites removal and fluid analysis to r/o SBP - Trial Emend 115mg IV for n/v - UGI to r/o GOO - Eventually need GI f/u for cirrhosis workup and management Supervising Physician Co-Signing Physician Notes Late entry: Patient was seen and examined on 07/31 with GERONIMO Kyle whose note reflects our findings and plan. Stool studies for the diarrhea are pending. Has h/o yehuda. Colestipol if stool is negative. Will need outpatient f/u for the cirrhosis. Conservative supportive care. History of Present Illness Reason for Consultation: N/V Requesting Physician: Dr. Ronaldo Borjas Attending Physician: Dr. Savannah Klein History of Present Illness Pt is a 60 y/o female w PMHx of COPD, HTN, CHF, non ischemic cardiomyopathy, ESRD on HD, breast ca s/p sx, NSCL ca s/p radiation, GERD, gastroparesis, hypothyroidism and cirrhosis who is readmitted for persistent n/v symptoms. She currently has associated epigastric discomfort, weight loss, and new productive cough. COVID -. She denies fever, chill. + diarrhea s/p cholecystectomy. She had been admitted 2 x and had several ED visits for persistent n/v. Tried on Reglan and Phenergan suppository as outpt but not responding to this. Admission CT abd/pelvis w signs of duodenal wall thickening and ? non specific colitis, + ascites and cirrhosis w evidence of portal HTN, splenomegaly w innumerable hypodense splenic lesions. Pt does have hx of multiple gastric polyps s/p EMR by Dr. Gisell Paulson last done 06/15/2020. Repeat in 6 months recommended Last colonoscopy 2013 - unremarkable. Prior hx of ETOH uses, denies IVDU, tattoos, body piercing, family hx of autoimmune dz Allergies Allergy/AdvReac Type Severity Reaction Status Date / Time atropine Allergy Severe Dyspnea Verified 07/30/20 04:44 linezolid Allergy Severe Thrombocyto Verified 07/30/20 04:44 penia naproxen Allergy Severe Facial Verified 07/30/20 04:44 edema dipyridamole Allergy Intermediate "Bad Verified 07/30/20 04:44 reaction" per records vancomycin Allergy Intermediate Rash/tommy Verified 07/30/20 04:44 syndrome aspirin AdvReac Intermediate Abdominal Verified 07/30/20 04:44 cramping Home Medications Medication Instructions Recorded Confirmed Type albuterol sulfate 2.5 mg INHALATION DIRECTED PRN 11/02/18 07/30/20 History calcium acetate(phosphat bind) 667 mg PO TIDM 11/02/18 07/30/20 History hydralazine 25 mg PO TID 11/02/18 07/30/20 History levothyroxine 75 mcg PO QAM 11/02/18 07/30/20 History simvastatin 20 mg PO HS 11/02/18 07/30/20 History amlodipine 10 mg PO QAM 07/14/19 07/30/20 History pantoprazole 40 mg PO QAM 07/14/19 07/30/20 History metoprolol succinate 25 mg PO DAILY 11/19/19 07/30/20 History trimethobenzamide 300 mg PO Q6H PRN 07/19/20 07/30/20 History ondansetron HCl [Zofran] 4 mg PO Q6H PRN #6 tab 07/23/20 07/30/20 Rx sennosides [Senokot] 8.6 mg PO HS #30 tab 07/23/20 07/30/20 Rx docusate sodium [Colace] 200 mg PO BID 07/30/20 07/30/20 History metoclopramide HCl 10 mg PO TID 07/30/20 07/30/20 History oxycodone 5 mg PO Q4 PRN 07/30/20 07/30/20 History Patient History Medical History Abdominal pain, acute, right lower quadrant Anemia of chronic renal failure AV fistula LUE Breast cancer s/p chemo/xrt CAD (coronary artery disease) widely patent coronary anatomy with only minor luminal irregularities suggesting mild CAD per 2014 cardiac cath Cirrhosis per records COPD (chronic obstructive pulmonary disease) ESRD (end stage renal disease) dialysis Thursday//Thursday ([place]) GERD (gastroesophageal reflux disease) Hyperlipidemia Hypertension Hypothyroidism Non-ischemic cardiomyopathy Non-small cell lung cancer (NSCLC) dx 04/2019; s/p XRT; RML On home oxygen therapy 2L O2 HS Splenomegaly, not elsewhere classified w/ multiple hypodense masses stable on fall 2019 imaging and present since at least 2005 Thrombocytopenia chronic Surgical History H/O partial thyroidectomy GOITER History of bronchoscopy History of cardiac cath 2013- NO STENTS History of colonoscopy History of esophagogastroduodenoscopy (EGD) History of tooth extraction Hx of lumpectomy LEFT S/P arteriovenous (AV) fistula creation Family History Other Family history non-contributory No family history of adverse response to anesthesia Social History Smoking Status: Former smoker Tobacco Type: Cigarettes Second Hand Exposure: Yes (parents smoked); Hx Alcohol Use: No Hx Substance Use: No Preferred Language: Vietnamese Communication Ability: Effective Tornado Chaser Required: No Beliefs That Will Affect Care: None marital status: Current Living Situation: Spouse current occupational status: disabled Feels Safe at Home: Yes Safety Concerns: Feels Safe At This Time Assistive Devices: Oxygen - Continuous Review of Systems Review of Systems: All systems reviewed & are unremarkable except as noted in HPI & below Physical Exam Constitutional: + thin, well groomed, cooperative and comfortable Eyes: PERRL, conjunctivae normal, anicteric sclerae ENMT: external ear and nose normal, oropharynx normal Respiratory: no respiratory distress and does not use accessory muscles Auscultation: + diminished lung sounds Cardiovascular: RRR, no murmur, no edema Gastrointestinal (Abdomen): Inspection/Auscultation: + abdomen distended and + hypoactive bowel sounds Percussion/Palpation: abdomen nontender Skin: no rashes, warm and dry no jaundice Neurologic: Motor/Sensory: no asterixis Psychiatric: A+Ox3, euthymic affect Lymphatic: no lymphedema Results & Data ([place]) Vital Signs (Past 12 Hours) Vital Signs Temp Pulse Pulse Resp BP Pulse Ox 07/31/20 07:37 36.8 C 67 18 158/56 H 100 07/31/20 07:32 68 07/31/20 07:03 69 18 100 07/31/20 04:08 36.8 C 73 18 152/58 H 100 07/31/20 02:00 73 07/30/20 23:41 37.0 C 76 18 147/61 H 100
[2020-07-31] MEDS: COLESTIPOL HCL 1 GM TAB PO SCH ×2 (11:14→20:55)
--- NOTE | 2020-07-31 11:32 | Ultrasound Report ---
ULTRASOUND ASCITES CHECK CLINICAL HISTORY: Abdominal ascites. Assess for paracentesis. COMPARISON STUDY: Abdominal CT dated 07/30/2020. FINDINGS: Real-time grayscale sonography of all 4 quadrants of the abdomen is performed to assess for abdominal ascites. There is trace abdominopelvic ascites. This was insufficient for paracentesis att empt. The liver is cirrhotic in morphology. The spleen is enlarged measuring 15.2 cm in length. IMPRESSION: Trace abdominal ascites which was insufficient for paracentesis attempt. Electronically signed by: Fortunato Morris M.D. 07/31/2020 11:31 AM
--- NOTE | 2020-07-31 14:12 | Fluoroscopy Report ---
DOUBLE CONTRAST UPPER GI SERIES CLINICAL HISTORY: Vomiting. Diarrhea. Weight loss. COMPARISON STUDY: Abdominal CT dated 07/30/2020. TECHNIQUE: A standard air contrast upper GI series was performed. Spot images of the esophagus and s tomach were obtained in multiple obliquities both upright and prone. Silent aspiration was observed a nd the examination was discontinued at that time. FINDINGS: The patient swallowed barium without difficulty. The esophagus is structurally normal without evidenc e of intrinsic or extrinsic mass. The esophageal mucosal pattern is normal. Gastroesophageal reflux w as observed during the examination. There was silent aspiration. The gastroesophageal junction disten ds normally. The stomach is normal in configuration and demonstrates normal distensibility. No mass or ulceration is identified. Gastric fold thickening suggests gastritis. The duodenal bulb and sweep are unremarkab le. Cholecystectomy clips are seen in the right upper quadrant. Fluoroscopy time: 1.2 minutes Fluoroscopic images: 19 IMPRESSION: 1. Silent aspiration was noted. 2. Gastroesophageal reflux was observed in the examination. 3. Gastric fold thickening suggests gastritis. Clinical correlation will be required. ACT 112: Negative or not required by law. Electronically signed by: Fortunato Morris M.D. 07/31/2020 2:11 PM
--- NOTE | 2020-07-31 14:34 | Nephrology Progress Note ---
Date of Service July 31, 2020 Assessment & Plan (1) ESRD (end stage renal disease) on dialysis: on TRSat HD >> dialyzed 07/30 to keep her on TRSat schedule during >> got 1.8L off yesterday; did miss 07/29 HD d/t weakness/vomiting -next HD on 08/01 > orders in -no GRACIE indicated currently but large hgb drop noted (2) Nausea vomiting and diarrhea: per admitting service and GI; hx of recurrent GI polyps;has nonspecific colitis, possible enteritis on imaging from admisison; f/u GI recs; upper GI study planned; no ascitic fluid for specimen to eval for SBP (3) Non-small cell lung cancer (NSCLC): s/p XRT; saw rad onc earlier this month; ? if any acute lung process here -had discussed in past w/ pulm, rad onc and opted to continue GRACIE at dialysis as indicated -- however none currently indicated (4) Thrombocytopenia: 60-90K on [facility] labs since spring 2019 > at lower end of this range on admisison and worse yet today; ? d/t liver dz >as OP takes heparin 1000 unit bolus and 400 hourly; w/ plts in current range running her though w/ no heparin and monitor for clot issues -monitor CBC daily Admission and Anticipated Discharge Date Admission Date: July 30, 2020 Subjective eager for results of GI studies today; still very N; minimal po; needed larger emesis basein; ongoing wheeze; less weak than yesterday Review of Systems Review of Systems: All systems reviewed & are unremarkable except as noted in HPI & below Physical Exam Constitutional: well developed, + thin, + frail appearing and cooperative; no acute distress Eyes: EOM intact bilaterally ENMT: Ears: no external ear abnormality Nose: no external nose abnormality Mouth: + dry oral mucous membranes Neck: no nuchal rigidity Respiratory: normal respiratory effort and + prolonged expiratory phase; no respiratory distress Auscultation: + diminished lung sounds, + crackles and + wheezes Cardiovascular: Rate/Rhythm: regular rate and regular rhythm Extremities: + edema (trace) and + AV fistula (+ t/b lue) Gastrointestinal (Abdomen): Inspection/Auscultation: normal bowel sounds Percussion/Palpation: abdomen soft; abdomen nontender Musculoskeletal: Extremities: + abnormal strength and + muscle atrophy Skin: no rashes, warm and dry Neurologic: yao, fluent speech, no tremor Psychiatric: Orientation: alert and oriented x 3 Eye Contact: good eye contact Speech: normal rate/rhythm/volume of speech Affect: + flat affect Results & Data ([facility]) Vital Signs (Past 12 Hours) Vital Signs Temp Pulse Pulse Pulse Resp BP Pulse Ox 07/31/20 13:03 71 18 99 07/31/20 11:33 36.7 C 82 18 114/69 93 07/31/20 07:37 36.8 C 67 18 158/56 H 100 07/31/20 07:32 68 07/31/20 07:03 69 18 100 07/31/20 04:08 36.8 C 73 18 152/58 H 100 Laboratory Results 07/31/20 05:29 07/31/20 05:29 (1) Non-small cell lung cancer (NSCLC) Laterality: right Qualified Code(s): C34.91 - Malignant neoplasm of unspecified part of right bronchus or lung
[2020-07-31] MEDS: AMPICILLIN/SULBACTAM SOD 3,000 MG in 0.9 % SODIUM CHLORIDE 100 ML IV SCH (17:48)
--- NOTE | 2020-07-31 19:32 | Hospitalist Progress Note ---
Date of Service July 31, 2020 Assessment & Plan (1) COPD exacerbation: Possibly secondary to aspiration pneumonia from intractable nausea, vomiting CXR showed persistent masslike opacity within the right middle lobe, possibly representing chronic right middle lobe syndrome. Diffuse interstitial thickening. COVID 19 negative Continue Unasyn and dexamethasone for now Will add guaifenesin for the cough Continue neb treatment Continue monitor closely Nausea/Vomiting/Diarrhea Hx Gastroparesis CT abd/pelvis showed interval development of duodenal wall thickening and wall thickening and associated mesenteric infiltration associated with multiple jejunal loops. Mild colonic wall thickening with submucosal fat deposition. Interval increase in ascites S/P laparoscopically cholecystectomy 06/18/2020 S/P EGD, ERCP revealing gastric polyps status post resection 06/15/2020 Gastro consult During last admission GI was planing to arrange colonoscopy for chronic diarrhea but but wanted to wait until fully recover from cholecystectomy Upper GI series showed silent aspiration was noted. fold thickening suggests gastritis. Continue clear liquid diet Colestipol 1g BID for possible bile acid diarrhea Continue Phenergan, Reglan and PPI Trial of Emend by GI Continue monitor electrolytes ESRD Nephrology on board Continue HD on Thursday//Thu Next HD schedule for Wed Stable Non-small cell lung cancer (NSCLC): Follow with Radiation Oncology Severe protein-calorie malnutrition Increase protein intake Liver cirrhosis Paracentesis ordered but, No fluid was able to collect No sign of fluid overload Thrombocytopenia Due to Cirrhosis Platelet 60's on admission No sign of bleeding Continue monitor CBC History of CAD, nonischemic cardiomyopathy Denies any chest pain Continue metoprolol, simvastatin Hypertension BP stable continue hydralazine 3 times daily and metoprolol DVT prophylaxis SCDs due to Thrombocytopenia CODE STATUS Full code Admission and Anticipated Discharge Date Admission Date: July 30, 2020 Subjective Pt was seen and examined Lying in bed with no distress Pt said that she continued to have nausea She said that she feels bloating Denies any chest pain, palpitation, dizziness and SOB Physical Exam Physical Exam: General- No acute distress, frail Head- atraumatic Eyes- PERRL, EOMI, ENT- oropharynx clear Neck- supple, no JVD Lungs- +coarse BS Heart- regular rhythm; no murmur Abdomen- normal bowel sounds, soft, nontender Extremities- no calf tenderness Neuro- alert, oriented x 3; PERRL, EOMI; no facial palsy; no dysarthria Skin- warm & dry Results & Data Results & Data ([facility]) Vital Signs (Past 12 Hours) Vital Signs Temp Pulse Pulse Pulse Resp BP Pulse Ox 07/31/20 16:00 75 07/31/20 15:50 36.4 C L 68 18 137/55 L 100 07/31/20 13:03 71 18 99 07/31/20 11:33 36.7 C 82 18 114/69 93 07/31/20 07:37 36.8 C 67 18 158/56 H 100 07/31/20 07:32 68
[2020-07-31] MEDS: SIMVASTATIN 20 MG TAB PO SCH (20:55)
[2020-08-01] MEDS: IPRATROPIUM BROMIDE NEB SOLN 0.02% 2.5 ML VIAL INH SCH ×4 (00:11→19:08)
[2020-08-01] MEDS: LEVALBUTEROL 1.25MG/0.5ML NEB INH SCH ×4 (00:12→19:08)
[2020-08-01] MEDS: PROMETHAZINE HCL 6.25 MG in SODIUM CHLORIDE 0.9% 50 ML IV PRN ×2 (04:06→14:03)
[2020-08-01] MEDS ORDERED: SODIUM CHLORIDE 0.9% 1000ML 1,000 ML IV PRN (07:00)
[2020-08-01 07:13] LABS: Hematocrit (blood only) 42.5 % (37-47); Hemoglobin 12.6 g/dL (12.0-16.0); Mean Corpuscular Hemoglobin 26.7 pg (25-34); Mean Corpuscular Hgb Conc 29.6 g/dL (32-36); RDW Coefficient of Variation 20.9 % (11.5-14.5); RDW Standard Deviation 69.6 fL (36.4-46.3); Red Blood Count 4.72 M/uL (4.2-5.4)
[2020-08-01 07:25] LABS: Mean Platelet Volume 10.7 fL (7.4-10.4); Platelet Count 68 K/uL (130-400)
[2020-08-01 07:49] LABS: BUN Creatinine Ratio 3.5 (10-20); Calcium 7.8 mg/dl (8.5-10.1); Creatinine Clr Calc Pharmacy 6.4 ml/min; Est GFR (African American) 7.9; Est GFR (Non-African American) 6.8; Potassium 4.2 mmol/L (3.5-5.1)
[2020-08-01] MEDS: CALCIUM ACETATE 667 MG CAP/TAB PO SCH ×3 (09:28→16:25)
[2020-08-01] MEDS: hydrALAZINE HCL 25 MG TAB PO SCH ×3 (09:29→20:09)
--- NOTE | 2020-08-01 10:04 | Nephrology Progress Note ---
Date of Service August 01, 2020 Assessment & Plan (1) ESRD (end stage renal disease) on dialysis: on TRSat HD >> dialyzed 07/30 to keep her on TRSat schedule during >> got 1.8L off yesterday; did miss 07/29 HD d/t weakness/vomiting. Patient tolerating dialysis well today. Will reduce UF goal to 2 L as patient has been vomiting for 2 days at least. -no GRACIE indicated currently but large hgb drop noted (2) Nausea vomiting and diarrhea: per admitting service and GI; hx of recurrent GI polyps;has nonspecific colitis, possible enteritis on imaging from admisison; f/u GI recs; upper GI study planned; no ascitic fluid for specimen to eval for SBP (3) Non-small cell lung cancer (NSCLC): s/p XRT; saw rad onc earlier this month; ? if any acute lung process here -had discussed in past w/ pulm, rad onc and opted to continue GRACIE at dialysis as indicated -- however none currently indicated (4) Thrombocytopenia: 60-90K on [facility] labs since spring 2019 > at lower end of this range on admisison and worse yet today; ? d/t liver dz >as OP takes heparin 1000 unit bolus and 400 hourly; w/ plts in current range running her though w/ no heparin and monitor for clot issues -monitor CBC daily Admission and Anticipated Discharge Date Admission Date: July 30, 2020 Subjective Patient was seen and examined while on dialysis. She feels nauseated. She was vomiting last night and this morning. No shortness of breath. Review of Systems Review of Systems: All systems reviewed & are unremarkable except as noted in HPI & below Physical Exam Physical Exam: General exam: Appears comfortable, no acute distress HEENT: Pupils are equal and reactive to light Neck: No JVD, neck is supple trachea is midline Respiratory system: Clear breath sounds bilaterally. Gastrointestinal: Abdomen is soft, non distended, non tender, bowel sounds are present CVS: Regular rate and rhythm. No murmurs, rubs or gallops Musculoskeletal: No joint or muscle tenderness Extremities: Non tender, no edema, peripheral pulses are present Neuro: Oriented, no tremors, no focal neurological deficits Skin: No rashes Access: Left upper arm AV fistula Results & Data ([facility]) Vital Signs (Past 12 Hours) Vital Signs Temp Pulse Pulse Pulse Resp BP BP 08/01/20 09:40 71 125/63 08/01/20 09:16 36.6 C 78 78 158/71 H 08/01/20 07:37 36.6 C 77 20 158/60 H 08/01/20 07:18 64 08/01/20 07:12 77 18 08/01/20 03:25 80 18 163/78 H 08/01/20 00:01 70 07/31/20 23:38 36.3 C L 69 18 139/57 L 07/31/20 22:20 72 Pulse Ox 08/01/20 09:40 08/01/20 09:16 08/01/20 07:37 99 08/01/20 07:18 08/01/20 07:12 98 08/01/20 03:25 100 08/01/20 00:01 07/31/20 23:38 100 07/31/20 22:20 Laboratory Results 08/01/20 06:41 08/01/20 06:41 WBC 8.20 RBC 4.72 MCV 90.0 MCH 26.7 MCHC 29.6 L RDW Std Deviation 69.6 H RDW Coeff of Dave 20.9 H Plt Count 68 L MPV 10.7 H (1) Non-small cell lung cancer (NSCLC) Laterality: right Qualified Code(s): C34.91 - Malignant neoplasm of unspecified part of right bronchus or lung
--- NOTE | 2020-08-01 10:25 | Gastroenterology Progress Note ---
Date of Service August 01, 2020 Assessment & Plan (1) Nausea vomiting and diarrhea: Pt is a 60 y/o female readmitted for n/v, diarrhea symptoms. Hx of GERD, gastroparesis, multiple gastric polyp s/p EMR. She is also s/p cholecystectomy. CT abd/pelvis w signs of possible enteritis, non specific colitis, cirrhosis w portal HTN, and ascites. - F/U stool cx and Cdiff to r/o infection - Colestipol 1g BID for possible bile acid diarrhea - KUB to eval for stool burden - U/S paracentesis for ascites removal and fluid analysis to r/o SBP -> inadequate to tap - Trial Emend 115mg IV for n/v on 07/31, consider repeat tomorrow - Scheduled Reglan 5mg IV qAC - UGI to r/o GOO -> silent aspiration, GERD and gastritis noted. Will increase Protonix to 40mg BID. Speech Therapy consult placed for swallow eval - Eventually need GI f/u for cirrhosis workup and management Admission and Anticipated Discharge Date Admission Date: July 30, 2020 Supervising Physician Co-Signing Physician Notes I have seen and examined the patient with GERONIMO Kyle whose note reflects our findings and plan. Still with nausea this AM. Tells me she just doesn't feel good. Less diarrhea. Remainder of studies still pending. Can repeat the Emend tomorrow. Agree with increase in PPI to BID. Outpatient Gi follow up. Subjective Pt reports persistent nausea but able to keep CL diet down this AM w/o vomiting Denies abd pain Having liquid stools Review of Systems Review of Systems: All systems reviewed & are unremarkable except as noted in HPI & below Physical Exam Constitutional: + thin, well groomed, cooperative and comfortable Eyes: PERRL, conjunctivae normal, anicteric sclerae ENMT: external ear and nose normal, oropharynx normal Respiratory: no respiratory distress and does not use accessory muscles Auscultation: + diminished lung sounds Cardiovascular: RRR, no murmur, no edema Gastrointestinal (Abdomen): Inspection/Auscultation: + abdomen distended and + hypoactive bowel sounds Percussion/Palpation: abdomen nontender Skin: no rashes, warm and dry no jaundice Neurologic: Motor/Sensory: no asterixis Psychiatric: A+Ox3, euthymic affect Lymphatic: no lymphedema Results & Data ([facility]) Vital Signs (Past 12 Hours) Vital Signs Temp Pulse Pulse Pulse Resp BP BP 08/01/20 10:20 71 123/62 08/01/20 10:00 70 124/57 L 08/01/20 09:40 71 125/63 08/01/20 09:16 36.6 C 78 78 158/71 H 08/01/20 07:37 36.6 C 77 20 158/60 H 08/01/20 07:18 64 08/01/20 07:12 77 18 08/01/20 03:25 80 18 163/78 H 08/01/20 00:01 70 07/31/20 23:38 36.3 C L 69 18 139/57 L Pulse Ox 08/01/20 10:20 08/01/20 10:00 08/01/20 09:40 08/01/20 09:16 08/01/20 07:37 99 08/01/20 07:18 08/01/20 07:12 98 08/01/20 03:25 100 08/01/20 00:01 07/31/20 23:38 100
[2020-08-01] MEDS: COLESTIPOL HCL 1 GM TAB PO SCH ×2 (11:42→21:53)
[2020-08-01] MEDS: METOCLOPRAMIDE HCL INJ 5 MG/ML 2 ML VIAL IV SCH ×2 (13:14→16:22)
[2020-08-01] MEDS: amLODIPine BESYLATE 5 MG TAB PO SCH (13:18)
[2020-08-01] MEDS: LEVOTHYROXINE SODIUM 75 MCG TABLET PO SCH (13:18)
[2020-08-01] MEDS: METOPROLOL SUCC 25MG EXT REL TAB PO SCH (13:18)
[2020-08-01] MEDS: predniSONE 20 MG TAB PO SCH (13:18)
[2020-08-01] MEDS: PANTOprazole 40 MG TAB PO SCH ×2 (14:50→20:09)
--- NOTE | 2020-08-01 15:16 | XRay Report ---
KUB CLINICAL HISTORY: Abdominal distention. FINDINGS: 2 AP supine abdominal radiographs are correlated with abdominal CT dated 07/30/2020. There is a nonobstructed abdominal bowel gas pattern. Residual enteric contrast is present in the colon, gr eatest in the rectosigmoid. There is no significant fecal retention. No evidence of intraperitoneal f ree air is seen on these supine views. Cholecystectomy clips are noted in the right upper quadrant. T he spleen is enlarged. The skeletal structures are osteopenic and appear intact. Parenchyma calcifica tions are noted at both lung bases. IMPRESSION: Nonobstructed abdominal bowel gas pattern. Electronically signed by: Fortunato Morris M.D. 08/01/2020 3:15 PM
[2020-08-01] MEDS: AMPICILLIN/SULBACTAM SOD 3,000 MG in 0.9 % SODIUM CHLORIDE 100 ML IV SCH (17:27)
--- NOTE | 2020-08-01 18:10 | Hospitalist Progress Note ---
Date of Service August 01, 2020 Assessment & Plan (1) COPD exacerbation: continues to have non productive cough Possibly secondary to aspiration pneumonia from intractable nausea, vomiting CXR showed persistent masslike opacity within the right middle lobe, possibly representing chronic right middle lobe syndrome. Diffuse interstitial thickening. COVID 19 negative Continue Unasyn and dexamethasone for now Will add guaifenesin for the cough Continue neb treatment Continue monitor closely Nausea/Vomiting/Diarrhea chronic issue due to Gastroparesis ? CT abd/pelvis showed interval development of duodenal wall thickening and wall thickening and associated mesenteric infiltration associated with multiple jejunal loops. Mild colonic wall thickening with submucosal fat deposition. Interval increase in ascites S/P laparoscopically cholecystectomy 06/18/2020 S/P EGD, ERCP revealing gastric polyps status post resection 06/15/2020 Gastro consult appreciated Colestipol 1g BID for possible bile acid diarrhea Continue Phenergan, Reglan and PPI Trial of Emend ordered by GI Continue monitor electrolytes ESRD Nephrology on board Continue HD on Thursday//Sat had HD today , Stable Non-small cell lung cancer (NSCLC): s/p Radiation tx Severe protein-calorie malnutrition due to poor PO intake intractable N/V Liver cirrhosis No sign of fluid overload Thrombocytopenia Due to Cirrhosis Platelet 60's on admission No sign of bleeding Continue monitor CBC History of CAD, nonischemic cardiomyopathy Denies any chest pain Continue metoprolol, simvastatin Hypertension BP stable continue hydralazine 3 times daily and metoprolol DVT prophylaxis SCDs due to Thrombocytopenia CODE STATUS Full code Admission and Anticipated Discharge Date Admission Date: July 30, 2020 Subjective Pt reports persistent nausea Denies abd pain continues to have liquid stools had dialysis today no fever or chills no report of chest pain or SOB Review of Systems Review of Systems: All systems reviewed & are unremarkable except as noted in HPI & below Gastrointestinal: + nausea Physical Exam Constitutional: + ill appearing Eyes: + anicteric sclerae ENMT: external ear and nose normal, oropharynx normal Neck: trachea midline, no thyromegaly Respiratory: Auscultation: + diminished lung sounds Cardiovascular: RRR, no murmur, no edema Gastrointestinal (Abdomen): Percussion/Palpation: abdomen soft Neurologic: PERRL, EOMI, accommodation nl, no face palsy, no dysarthria Psychiatric: Orientation: alert Affect: + flat affect Results & Data Results & Data ([facility]) Vital Signs (Past 12 Hours) Vital Signs Temp Pulse Pulse Pulse Resp BP BP 08/01/20 16:00 77 08/01/20 14:51 36.3 C L 75 20 148/54 H 08/01/20 13:31 68 18 08/01/20 12:48 36.4 C L 63 63 139/62 139/62 08/01/20 12:40 72 117/60 08/01/20 12:20 70 116/60 08/01/20 12:00 71 124/59 L 08/01/20 11:40 66 122/61 08/01/20 11:20 68 117/56 L 08/01/20 11:00 65 127/59 L 08/01/20 10:40 76 120/66 08/01/20 10:20 71 123/62 08/01/20 10:00 70 124/57 L 08/01/20 09:40 71 125/63 08/01/20 09:16 36.6 C 78 78 158/71 H 08/01/20 07:37 36.6 C 77 20 158/60 H 08/01/20 07:18 64 08/01/20 07:12 77 18 Pulse Ox 08/01/20 16:00 08/01/20 14:51 99 08/01/20 13:31 98 08/01/20 12:48 08/01/20 12:40 08/01/20 12:20 08/01/20 12:00 08/01/20 11:40 08/01/20 11:20 08/01/20 11:00 08/01/20 10:40 08/01/20 10:20 08/01/20 10:00 08/01/20 09:40 08/01/20 09:16 08/01/20 07:37 99 08/01/20 07:18 08/01/20 07:12 98
[2020-08-01] MEDS: SIMVASTATIN 20 MG TAB PO SCH (20:09)
[2020-08-02] MEDS: LEVALBUTEROL 1.25MG/0.5ML NEB INH SCH ×4 (00:03→19:26)
[2020-08-02] MEDS: IPRATROPIUM BROMIDE NEB SOLN 0.02% 2.5 ML VIAL INH SCH ×4 (00:03→19:28)
[2020-08-02] MEDS: LEVOTHYROXINE SODIUM 75 MCG TABLET PO SCH (06:12)
[2020-08-02] MEDS: CALCIUM ACETATE 667 MG CAP/TAB PO SCH ×3 (08:50→17:51)
[2020-08-02] MEDS: hydrALAZINE HCL 25 MG TAB PO SCH ×3 (08:50→21:46)
[2020-08-02] MEDS: PANTOprazole 40 MG TAB PO SCH ×2 (08:51→21:46)
[2020-08-02] MEDS: amLODIPine BESYLATE 5 MG TAB PO SCH (08:51)
[2020-08-02] MEDS: METOPROLOL SUCC 25MG EXT REL TAB PO SCH (08:51)
[2020-08-02] MEDS: predniSONE 20 MG TAB PO SCH (08:51)
[2020-08-02] MEDS: METOCLOPRAMIDE HCL INJ 5 MG/ML 2 ML VIAL IV SCH ×3 (08:54→17:49)
--- NOTE | 2020-08-02 09:33 | Gastroenterology Progress Note ---
Date of Service August 02, 2020 Assessment & Plan Admission and Anticipated Discharge Date Admission Date: July 30, 2020 Supervising Physician Co-Signing Physician Notes 60 yo fm with cirrhosis, gi following for nausea/vomiting. Appears to have responded to emend - additional dose today and continue with scheduled anti- nausea medication. Consider checking INR to calculate her meld score. Ascites tap recently attempted. Assess response to emend today. Subjective No acute complaints Feeling a bit better today in terms of her nausea/vomiting Has not gone to the bathroom yet today Review of Systems Review of Systems: All systems reviewed & are unremarkable except as noted in HPI & below Physical Exam Physical Exam: Thin female in nad Eyes: PERRL, conjunctivae normal, anicteric sclerae Gastrointestinal (Abdomen): normal bowel sounds, soft, nontender, no hepatosplenomegaly Distended abdomen with mild ascites Results & Data ([facility]) Vital Signs (Past 12 Hours) Vital Signs Temp Pulse Pulse Resp BP Pulse Ox 08/02/20 07:25 36.3 C L 74 18 166/64 H 100 08/02/20 07:22 75 19 99 08/02/20 03:13 36.4 C L 68 18 153/57 H 100 08/01/20 23:42 72
--- NOTE | 2020-08-02 10:16 | Nephrology Progress Note ---
Date of Service August 02, 2020 Assessment & Plan (1) ESRD (end stage renal disease) on dialysis: on TRSat HD >> dialyzed 07/30 to keep her on TRSat schedule during >> got 1.8L off yesterday; did miss 07/29 HD d/t weakness/vomiting. Patient tolerated dialysis well yesterday although she had episode of vomiting during dialysis. -Next dialysis will be Thursday -no GRACIE indicated currently (2) Nausea vomiting and diarrhea: per admitting service and GI; hx of recurrent GI polyps;has nonspecific colitis, possible enteritis on imaging from admisison; f/u GI recs; upper GI study planned; no ascitic fluid for specimen to eval for SBP (3) Non-small cell lung cancer (NSCLC): s/p XRT; saw rad onc earlier this month; ? if any acute lung process here -had discussed in past w/ pulm, rad onc and opted to continue GRACIE at dialysis as indicated -- however none currently indicated (4) Thrombocytopenia: 60-90K on [facility] labs since spring 2019 > at lower end of this range on admisison and worse yet today; ? d/t liver dz >as OP takes heparin 1000 unit bolus and 400 hourly; w/ plts in current range running her though w/ no heparin and monitor for clot issues -monitor CBC daily Admission and Anticipated Discharge Date Admission Date: July 30, 2020 Subjective Seen in follow-up for ESRD. She had dialysis yesterday with net UF of 2 L. She had episode of vomiting during dialysis. Still complains of episodes of nausea and vomiting. No shortness of breath today. She is on stable 2 L nasal cannula Review of Systems Review of Systems: All systems reviewed & are unremarkable except as noted in HPI & below Physical Exam Physical Exam: General exam: Appears comfortable, no acute distress, on oxygen nasal cannula 2 L HEENT: Pupils are equal and reactive to light Neck: No JVD, neck is supple trachea is midline Respiratory system: Clear breath sounds bilaterally. Gastrointestinal: Abdomen is soft, non distended, non tender, bowel sounds are present CVS: Regular rate and rhythm. No murmurs, rubs or gallops Musculoskeletal: No joint or muscle tenderness Extremities: Non tender, no edema, peripheral pulses are present Neuro: Oriented, no tremors, no focal neurological deficits Skin: No rashes Results & Data ([facility]) Vital Signs (Past 12 Hours) Vital Signs Temp Pulse Pulse Resp BP Pulse Ox 08/02/20 07:25 36.3 C L 74 18 166/64 H 100 08/02/20 07:22 75 19 99 08/02/20 03:13 36.4 C L 68 18 153/57 H 100 08/01/20 23:42 72 Laboratory Results 08/01/20 06:41 (1) Non-small cell lung cancer (NSCLC) Laterality: right Qualified Code(s): C34.91 - Malignant neoplasm of unspecified part of right bronchus or lung
[2020-08-02] MEDS: COLESTIPOL HCL 1 GM TAB PO SCH ×2 (11:31→23:02)
[2020-08-02] MEDS ORDERED: COUGH DROP (SUGAR FREE) LOZ 24 LOZ/1 BOX BUCCAL ONE (11:37)
--- NOTE | 2020-08-02 13:16 | Hospitalist Progress Note ---
Date of Service August 02, 2020 Assessment & Plan (1) COPD exacerbation: continues to have non productive cough Possibly secondary to aspiration pneumonia from intractable nausea, vomiting CXR showed persistent masslike opacity within the right middle lobe, possibly representing chronic right middle lobe syndrome. Diffuse interstitial thickening. COVID 19 negative Continue Unasyn and dexamethasone for now Will add guaifenesin for the cough Continue neb treatment Continue monitor closely Nausea/Vomiting/Diarrhea chronic issue /symptoms improved after iv Amend and Colestipol possible due to Gastroparesis CT abd/pelvis showed interval development of duodenal wall thickening and wall thickening and associated mesenteric infiltration associated with multiple jejunal loops. Mild colonic wall thickening with submucosal fat deposition. Interval increase in ascites S/P laparoscopically cholecystectomy 06/18/2020 S/P EGD, ERCP revealing gastric polyps status post resection 06/15/2020 Gastro consult appreciated cont Colestipol 1g BID for possible bile acid diarrhea Continue Phenergan, Reglan and PPI diet advanced to full liquid ESRD Nephrology on board Continue HD on Thursday//Sat had extra HD tx yesterday , vol stable Non-small cell lung cancer (NSCLC): s/p Radiation tx Severe protein-calorie malnutrition due to poor PO intake intractable N/V -tolerating diet now will consult dietary for supplement Liver cirrhosis No sign of fluid overload USG of abdomen showed minimum ascities , unable to do paracenthesis Thrombocytopenia Due to Cirrhosis Platelet 60's on admission No sign of bleeding Continue monitor CBC History of CAD, nonischemic cardiomyopathy Denies any chest pain Continue metoprolol, simvastatin Hypertension BP stable continue hydralazine 3 times daily and metoprolol DVT prophylaxis SCDs due to Thrombocytopenia CODE STATUS Full code Admission and Anticipated Discharge Date Admission Date: July 30, 2020 Subjective no complain of nausea vomiting today able to eat clear liquid breakfast today did not had a bowel movement since am feels much better , she usually feels wiped out -with persistent nausea /not able to eat and ongoing diarrhea . no fever or chills , no SOB or cough Review of Systems Review of Systems: All systems reviewed & are unremarkable except as noted in HPI & below Physical Exam Constitutional: + ill appearing Eyes: + anicteric sclerae ENMT: external ear and nose normal, oropharynx normal Neck: trachea midline, no thyromegaly Respiratory: Auscultation: + diminished lung sounds Cardiovascular: RRR, no murmur, no edema Gastrointestinal (Abdomen): Percussion/Palpation: abdomen soft Neurologic: PERRL, EOMI, accommodation nl, no face palsy, no dysarthria Psychiatric: A+Ox3, euthymic affect Orientation: alert Affect: + flat affect Results & Data Results & Data ([facility]) Vital Signs (Past 12 Hours) Vital Signs Temp Pulse Resp BP Pulse Ox 08/02/20 11:25 36.5 C 77 19 139/54 L 100 08/02/20 07:25 36.3 C L 74 18 166/64 H 100 08/02/20 07:22 75 19 99 08/02/20 03:13 36.4 C L 68 18 153/57 H 100
[2020-08-02] MEDS: AMPICILLIN/SULBACTAM SOD 3,000 MG in 0.9 % SODIUM CHLORIDE 100 ML IV SCH (17:52)
[2020-08-02] MEDS: SIMVASTATIN 20 MG TAB PO SCH (21:46)
[2020-08-02] MEDS: PROMETHAZINE HCL 6.25 MG in SODIUM CHLORIDE 0.9% 50 ML IV PRN (23:49)
[2020-08-03] MEDS: IPRATROPIUM BROMIDE NEB SOLN 0.02% 2.5 ML VIAL INH SCH ×4 (00:24→19:32)
[2020-08-03] MEDS: LEVALBUTEROL 1.25MG/0.5ML NEB INH SCH ×4 (00:24→19:32)
[2020-08-03] MEDS: LEVOTHYROXINE SODIUM 75 MCG TABLET PO SCH (06:10)
[2020-08-03] MEDS: PANTOprazole 40 MG TAB PO SCH ×2 (08:39→20:44)
[2020-08-03] MEDS: METOCLOPRAMIDE HCL INJ 5 MG/ML 2 ML VIAL IV SCH ×3 (08:39→16:37)
[2020-08-03] MEDS: CALCIUM ACETATE 667 MG CAP/TAB PO SCH ×3 (08:39→16:38)
[2020-08-03] MEDS: METOPROLOL SUCC 25MG EXT REL TAB PO SCH (08:40)
[2020-08-03] MEDS: predniSONE 20 MG TAB PO SCH (08:40)
[2020-08-03] MEDS: amLODIPine BESYLATE 5 MG TAB PO SCH (08:40)
[2020-08-03] MEDS: hydrALAZINE HCL 25 MG TAB PO SCH ×3 (08:43→20:43)
[2020-08-03] MEDS: COLESTIPOL HCL 1 GM TAB PO SCH ×2 (08:43→20:43)
--- NOTE | 2020-08-03 09:45 | Nephrology Progress Note ---
Date of Service August 03, 2020 Assessment & Plan (1) ESRD (end stage renal disease) on dialysis: on TRSat HD >> dialyzed 07/30 to keep her on TRSat schedule during >> got 1.8L off yesterday; did miss 07/29 HD d/t weakness/vomiting. Patient tolerated dialysis well 08/01/2020 although she had episode of vomiting during dialysis. -Next dialysis will be Thursday -no GRACIE indicated currently (2) Nausea vomiting and diarrhea: per admitting service and GI; hx of recurrent GI polyps;has nonspecific colitis, possible enteritis on imaging from admission; f/u GI recs -Continue supportive management -We will minimize UF during dialysis (3) Non-small cell lung cancer (NSCLC): s/p XRT; saw rad onc earlier this month; ? if any acute lung process here -had discussed in past w/ pulm, rad onc and opted to continue GRACIE at dialysis as indicated -- however none currently indicated (4) Thrombocytopenia: 60-90K on [facility] labs since spring 2019 > at lower end of this range on admisison and worse yet today; ? d/t liver dz >as OP takes heparin 1000 unit bolus and 400 hourly; w/ plts in current range running her though w/ no heparin and monitor for clot issues -monitor CBC daily Admission and Anticipated Discharge Date Admission Date: July 30, 2020 Subjective Seen in follow-up for ESRD. Main complaint is nausea and vomiting. No shortness of breath. Review of Systems Review of Systems: All systems reviewed & are unremarkable except as noted in HPI & below Physical Exam Physical Exam: General exam: Appears comfortable, no acute distress HEENT: Pupils are equal and reactive to light Neck: No JVD, neck is supple trachea is midline Respiratory system: Clear breath sounds bilaterally. Gastrointestinal: Abdomen is soft, slightly distended, non tender, bowel sounds are present CVS: Regular rate and rhythm. No murmurs, rubs or gallops Musculoskeletal: No joint or muscle tenderness Extremities: Non tender, no edema, peripheral pulses are present Neuro: Oriented, no tremors, no focal neurological deficits Skin: No rashes Results & Data ([facility]) Vital Signs (Past 12 Hours) Vital Signs Temp Pulse Resp BP Pulse Ox 08/03/20 07:35 80 20 100 08/03/20 07:15 36.6 C 78 20 161/71 H 100 08/02/20 23:44 36.5 C 75 17 148/61 H 99 Laboratory Results 08/01/20 06:41 (1) Non-small cell lung cancer (NSCLC) Laterality: right Qualified Code(s): C34.91 - Malignant neoplasm of unspecified part of right bronchus or lung
[2020-08-03] MEDS: PROMETHAZINE HCL 6.25 MG in SODIUM CHLORIDE 0.9% 50 ML IV PRN ×2 (09:47→17:33)
--- NOTE | 2020-08-03 10:52 | Gastroenterology Progress Note ---
Date of Service August 03, 2020 Assessment & Plan Admission and Anticipated Discharge Date Admission Date: July 30, 2020 Supervising Physician Co-Signing Physician Notes I have seen and examined the patient with GERONIMO Valenzuela whose note reflects our findings and plan. Nausea persists. Monitor response to Emend. ? if metabolic in origin. Subjective Pt reports n/v again this AM ; no abd pain Review of Systems Review of Systems: All systems reviewed & are unremarkable except as noted in HPI & below Physical Exam Constitutional: + thin, well groomed, cooperative and comfortable Eyes: PERRL, conjunctivae normal, anicteric sclerae ENMT: external ear and nose normal, oropharynx normal Respiratory: no respiratory distress and does not use accessory muscles coarse lung sound bilaterally Cardiovascular: RRR, no murmur, no edema Gastrointestinal (Abdomen): Inspection/Auscultation: + abdomen distended and + hypoactive bowel sounds Percussion/Palpation: abdomen nontender Skin: no rashes, warm and dry no jaundice Neurologic: Motor/Sensory: no asterixis Psychiatric: A+Ox3, euthymic affect Lymphatic: no lymphedema Results & Data ([facility]) Vital Signs (Past 12 Hours) Vital Signs Temp Pulse Resp BP Pulse Ox 08/03/20 07:35 80 20 100 08/03/20 07:15 36.6 C 78 20 161/71 H 100 08/02/20 23:44 36.5 C 75 17 148/61 H 99
[2020-08-03] MEDS ORDERED: FOSAPREPITANT DIMEGLUMINE 115 MG in 0.9 % SODIUM CHLORIDE 111.2 ML IV ONE (11:15)
--- NOTE | 2020-08-03 11:28 | XRay Report ---
XR chest 2V PA/lateral HISTORY: cough; coarse lung sounds COMPARISON: Chest 07/30/2020. FINDINGS: Diffuse interstitial thickening, unchanged. Left axillary vascular stent is noted. No pneum othorax. Prior cholecystectomy. The heart remains mildly enlarged. Bibasilar airspace opacities persi st. Focal density within the right middle lobe may represent chronic atelectasis/collapse. This remai ns unchanged. There are suture material within the left lung base and surgical clips within the left breast. Old, healed right-sided rib fractures. IMPRESSION: 1. No significant change. 2. Bibasilar interstitial thickening and focal right middle lobe masslike airspace opacity persist. ACT 112: Negative or not required by law. Electronically signed by: Chucho Umana M.D. 08/03/2020 11:27 AM
--- NOTE | 2020-08-03 17:30 | Hospitalist Progress Note ---
Date of Service August 03, 2020 Assessment & Plan (1) COPD exacerbation: cough has improved , no complain of SOB , no fever or chills Possibly secondary to aspiration pneumonia from intractable nausea, vomiting CXR showed persistent masslike opacity within the right middle lobe, possibly representing chronic right middle lobe syndrome. Diffuse interstitial thickening. COVID 19 negative will change Abx to PO augmentin Nausea/Vomiting/Diarrhea possible due to Gastroparesis CT abd/pelvis showed interval development of duodenal wall thickening and wall thickening and associated mesenteric infiltration associated with multiple jejunal loops. Mild colonic wall thickening with submucosal fat deposition. Interval increase in ascites S/P laparoscopically cholecystectomy 06/18/2020 S/P EGD, ERCP revealing gastric polyps status post resection 06/15/2020 Gastro consult appreciated cont Colestipol 1g BID for possible bile acid diarrhea-symptoms improved ordered Iv Emend by GI , pt reports of temporary relief of symptoms Continue Phenergan, Reglan and PPI diet advanced to solid ESRD Nephrology on board Continue HD on Thursday//Thu d vol stable Non-small cell lung cancer (NSCLC): s/p Radiation tx Severe protein-calorie malnutrition due to poor PO intake intractable N/V -tolerating diet now will consult dietary for supplement Liver cirrhosis No sign of fluid overload USG of abdomen showed minimum ascities , unable to do paracenthesis Thrombocytopenia Due to Cirrhosis Platelet 60's on admission No sign of bleeding Continue monitor CBC History of CAD, nonischemic cardiomyopathy Denies any chest pain Continue metoprolol, simvastatin Hypertension BP stable continue hydralazine 3 times daily and metoprolol DVT prophylaxis SCDs due to Thrombocytopenia CODE STATUS Full code Admission and Anticipated Discharge Date Admission Date: July 30, 2020 Subjective follow up visit for Nausea/vomiting : pt reports her nausea was better this Am received Iv Emend ordered by GI managed to have breakfast later in the day , started to feel nauseous again , very poor appetite , not able to tolerate lunch very frustrated with ongoing GI symptoms cough has improved no fever or chills Review of Systems Gastrointestinal: + early satiety, + nausea and + vomiting Physical Exam Constitutional: + ill appearing Eyes: + anicteric sclerae ENMT: external ear and nose normal, oropharynx normal Neck: trachea midline, no thyromegaly Respiratory: Auscultation: + diminished lung sounds Cardiovascular: RRR, no murmur, no edema Gastrointestinal (Abdomen): Percussion/Palpation: abdomen soft Neurologic: PERRL, EOMI, accommodation nl, no face palsy, no dysarthria Psychiatric: A+Ox3, euthymic affect Orientation: alert Affect: + flat affect Results & Data Results & Data ([facility]) Vital Signs (Past 12 Hours) Vital Signs Temp Pulse Resp BP BP Pulse Ox 08/03/20 15:27 36.8 C 81 18 157/66 H 100 08/03/20 13:46 81 16 100 08/03/20 07:35 80 20 100 08/03/20 07:15 36.6 C 78 20 161/71 H 100
[2020-08-03] MEDS: AMOXICILLIN/CLAVULANATE 500 MG TAB PO SCH (17:35)
[2020-08-03] MEDS: SIMVASTATIN 20 MG TAB PO SCH (20:43)
[2020-08-04] MEDS: IPRATROPIUM BROMIDE NEB SOLN 0.02% 2.5 ML VIAL INH SCH ×4 (02:05→19:25)
[2020-08-04] MEDS: LEVALBUTEROL 1.25MG/0.5ML NEB INH SCH ×4 (02:05→19:25)
[2020-08-04] MEDS: LEVOTHYROXINE SODIUM 75 MCG TABLET PO SCH (05:47)
[2020-08-04] MEDS ORDERED: SODIUM CHLORIDE 0.9% 1000ML 1,000 ML IV PRN (07:00)
[2020-08-04] MEDS ORDERED: HEPARIN SOD (PORCINE) 1000 UNIT/ML 10 ML VIAL IV ONE (07:00)
[2020-08-04] MEDS: CALCIUM ACETATE 667 MG CAP/TAB PO SCH ×3 (08:07→17:19)
[2020-08-04] MEDS: PANTOprazole 40 MG TAB PO SCH ×2 (08:07→20:46)
[2020-08-04] MEDS: METOCLOPRAMIDE HCL INJ 5 MG/ML 2 ML VIAL IV SCH ×3 (08:10→17:19)
[2020-08-04] MEDS: HEPARIN SOD (PORCINE) 1000 UNIT/ML 10 ML VIAL IV SCH (09:02)
[2020-08-04] MEDS: hydrALAZINE HCL 25 MG TAB PO SCH ×3 (09:35→20:46)
[2020-08-04 10:11] LABS: Hematocrit (blood only) 36.5 % (37-47); Hemoglobin 11.1 g/dL (12.0-16.0); Mean Corpuscular Hemoglobin 27.3 pg (25-34); Mean Corpuscular Hgb Conc 30.4 g/dL (32-36); Mean Corpuscular Volume 89.9 fL (80-100); RDW Coefficient of Variation 20.2 % (11.5-14.5); RDW Standard Deviation 66.7 fL (36.4-46.3); Red Blood Count 4.06 M/uL (4.2-5.4); White Blood Count 6.62 K/uL (4.8-10.8)
[2020-08-04 10:45] LABS: Mean Platelet Volume 10.9 fL (7.4-10.4); Platelet Count 52 K/uL (130-400)
[2020-08-04 10:52] LABS: Anisocytosis Present; Basophils # (auto) 0.01 K/uL (0-0.2); Basophils % (auto) 0.2 %; Immature Granulocytes # (auto) 0.07 K/uL (0.00-0.02); Immature Granulocytes % (auto) 1.1 %; Lymphocytes # (auto) 0.56 K/uL (1.2-3.4); Lymphocytes % (auto) 8.5 %; Monocytes # (auto) 0.08 K/uL (0.11-0.59); Monocytes % (auto) 1.2 %
[2020-08-04] MEDS ORDERED: FOSAPREPITANT DIMEGLUMINE 150 MG in SODIUM CHLORIDE 0.9% 145 ML IV ONE (12:00)
[2020-08-04] MEDS: COLESTIPOL HCL 1 GM TAB PO SCH ×2 (14:27→20:46)
[2020-08-04] MEDS: METOPROLOL SUCC 25MG EXT REL TAB PO SCH (14:41)
[2020-08-04] MEDS: amLODIPine BESYLATE 5 MG TAB PO SCH (14:43)
[2020-08-04 15:09] LABS: BUN Creatinine Ratio 3.5 (10-20); Calcium 7.5 mg/dl (8.5-10.1); Est GFR (African American) 20.1; Est GFR (Non-African American) 17.3
--- NOTE | 2020-08-04 15:37 | Dialysis Progress Note ---
Date of Service August 04, 2020 Assessment & Plan (1) ESRD (end stage renal disease) on dialysis: on TRSat HD >> dialyzed today on TRSat schedule; got 2L off; did dislodge art needle about 10 min before end of tx and lost per RN about 50 mL blood; no sx; hemostasis achieved; did miss 07/29 HD d/t weakness/vomiting. -Next dialysis will be 08/07 -no GRACIE indicated currently (2) Nausea vomiting and diarrhea: per admitting service and GI; hx of recurrent GI polyps;has nonspecific colitis, possible enteritis on imaging from admission; f/u GI recs -Continue supportive management -trial of emend underway; for OP GI scopes next month (3) Non-small cell lung cancer (NSCLC): s/p XRT; saw rad onc earlier this month; ? if any acute lung process here -had discussed in past w/ pulm, rad onc and opted to continue GRACIE at dialysis as indicated -- however none currently indicated (4) Thrombocytopenia: 60-90K on [facility] labs since spring 2019 > at lower end of this range on admisison and currently; ? d/t liver dz >and with some blood loss today > recheck bmp in am -monitor CBC daily Admission and Anticipated Discharge Date Admission Date: July 30, 2020 Subjective seen on dialysis this am at about 0945; started on solids first time today > tolerated breakfast > she has less N; has ongoing diarrhea however; no sob; no uncontrollled musculoskeletal or chest pain; frustrated not to understand causes of N viri Review of Systems Review of Systems: All systems reviewed & are unremarkable except as noted in HPI & below Physical Exam Constitutional: well developed, + thin, + frail appearing and cooperative; no acute distress Eyes: EOM intact bilaterally ENMT: Ears: no external ear abnormality Nose: no external nose abnormality Mouth: + dry oral mucous membranes Neck: no nuchal rigidity Respiratory: normal respiratory effort; no respiratory distress Auscultation: + diminished lung sounds Cardiovascular: Rate/Rhythm: regular rate and regular rhythm Extremities: + edema (trace) and + AV fistula (+ t/b lue) Gastrointestinal (Abdomen): Inspection/Auscultation: + abdomen distended and normal bowel sounds Percussion/Palpation: abdomen soft; abdomen nontender Musculoskeletal: Extremities: + abnormal strength and + muscle atrophy Skin: no rashes, warm and dry Neurologic: no tremor, yao, fluent speech Psychiatric: Orientation: alert and oriented x 3 Eye Contact: good eye contact Speech: normal rate/rhythm/volume of speech Affect: + flat affect Results & Data ([facility]) Vital Signs (Past 12 Hours) Vital Signs Temp Pulse Pulse Pulse Resp BP BP 08/04/20 14:50 76 08/04/20 13:34 37.0 C 65 08/04/20 12:40 65 131/62 08/04/20 12:20 66 141/65 H 08/04/20 11:58 66 141/65 H 08/04/20 11:40 62 136/64 08/04/20 11:20 68 138/66 08/04/20 11:00 72 131/62 08/04/20 10:48 71 133/66 08/04/20 10:20 64 142/61 H 08/04/20 10:00 76 137/64 08/04/20 09:40 75 150/71 H 08/04/20 09:23 37.0 C 76 08/04/20 08:17 36.5 C 74 18 171/66 H 08/04/20 07:19 77 18 BP Pulse Ox 08/04/20 14:50 158/54 H 08/04/20 13:34 131/62 08/04/20 12:40 08/04/20 12:20 08/04/20 11:58 08/04/20 11:40 08/04/20 11:20 08/04/20 11:00 08/04/20 10:48 08/04/20 10:20 08/04/20 10:00 08/04/20 09:40 08/04/20 09:23 08/04/20 08:17 99 08/04/20 07:19 97 Laboratory Results 08/04/20 10:07 08/04/20 14:29 (1) Non-small cell lung cancer (NSCLC) Laterality: right Qualified Code(s): C34.91 - Malignant neoplasm of unspecified part of right bronchus or lung
--- NOTE | 2020-08-04 17:12 | Hospitalist Progress Note ---
Date of Service August 04, 2020 Assessment & Plan (1) COPD exacerbation: cough has improved , no complain of SOB , no fever or chills Possibly secondary to aspiration pneumonia from intractable nausea, vomiting CXR showed persistent masslike opacity within the right middle lobe, possibly representing chronic right middle lobe syndrome. Diffuse interstitial thickening. COVID 19 negative on PO Augmentin Nausea/Vomiting/Diarrhea symptom has improved with Emend possible due to Gastroparesis CT abd/pelvis showed interval development of duodenal wall thickening and wall thickening and associated mesenteric infiltration associated with multiple jejunal loops. Mild colonic wall thickening with submucosal fat deposition. Interval increase in ascites S/P laparoscopically cholecystectomy 06/18/2020 S/P EGD, ERCP revealing gastric polyps status post resection 06/15/2020 Gastro consult appreciated cont Colestipol 1g BID for possible bile acid diarrhea-symptoms improved Continue Phenergan, Reglan and PPI diet advanced to solid tolering well ESRD Nephrology on board Continue HD on Thursday//Thu d vol stable Non-small cell lung cancer (NSCLC): s/p Radiation tx Severe protein-calorie malnutrition due to poor PO intake intractable N/V -tolerating diet now will consult dietary for supplement Liver cirrhosis No sign of fluid overload USG of abdomen showed minimum ascities , unable to do paracenthesis Thrombocytopenia Due to Cirrhosis Platelet 60's on admission No sign of bleeding Continue monitor CBC History of CAD, nonischemic cardiomyopathy Denies any chest pain Continue metoprolol, simvastatin Hypertension BP stable continue hydralazine 3 times daily and metoprolol DVT prophylaxis SCDs due to Thrombocytopenia CODE STATUS Full code Disposition : expected to discharge home when medically stable Admission and Anticipated Discharge Date Admission Date: July 30, 2020 Subjective follow up visit for Nausea/vomiting : having a better day improvement of nausea /vomiting able to finish solid meals persistent cough , no SOB or hypoxia ,no fever or chills had dialysis today Review of Systems Review of Systems: All systems reviewed & are unremarkable except as noted in HPI & below Physical Exam Constitutional: + ill appearing Eyes: + anicteric sclerae ENMT: external ear and nose normal, oropharynx normal Neck: trachea midline, no thyromegaly Respiratory: Auscultation: + diminished lung sounds Cardiovascular: RRR, no murmur, no edema Gastrointestinal (Abdomen): Percussion/Palpation: abdomen soft Neurologic: PERRL, EOMI, accommodation nl, no face palsy, no dysarthria Psychiatric: A+Ox3, euthymic affect Orientation: alert Affect: + flat affect Results & Data Results & Data ([facility]) Vital Signs (Past 12 Hours) Vital Signs Temp Pulse Pulse Pulse Resp BP BP 08/04/20 16:04 36.4 C L 77 18 149/54 H 08/04/20 14:50 76 08/04/20 13:34 37.0 C 65 08/04/20 12:40 65 131/62 08/04/20 12:20 66 141/65 H 08/04/20 11:58 66 141/65 H 08/04/20 11:40 62 136/64 08/04/20 11:20 68 138/66 08/04/20 11:00 72 131/62 08/04/20 10:48 71 133/66 08/04/20 10:20 64 142/61 H 08/04/20 10:00 76 137/64 08/04/20 09:40 75 150/71 H 08/04/20 09:23 37.0 C 76 08/04/20 08:17 36.5 C 74 18 171/66 H 08/04/20 07:19 77 18 BP Pulse Ox 08/04/20 16:04 99 08/04/20 14:50 158/54 H 08/04/20 13:34 131/62 08/04/20 12:40 08/04/20 12:20 08/04/20 11:58 08/04/20 11:40 08/04/20 11:20 08/04/20 11:00 08/04/20 10:48 08/04/20 10:20 08/04/20 10:00 08/04/20 09:40 08/04/20 09:23 08/04/20 08:17 99 08/04/20 07:19 97
[2020-08-04] MEDS: AMOXICILLIN/CLAVULANATE 500 MG TAB PO SCH (17:18)
[2020-08-04] MEDS: SIMVASTATIN 20 MG TAB PO SCH (20:46)
[2020-08-05] MEDS: IPRATROPIUM BROMIDE NEB SOLN 0.02% 2.5 ML VIAL INH SCH ×4 (01:41→19:58)
[2020-08-05] MEDS: LEVALBUTEROL 1.25MG/0.5ML NEB INH SCH ×4 (01:41→19:58)
[2020-08-05] MEDS: LEVOTHYROXINE SODIUM 75 MCG TABLET PO SCH (05:19)
[2020-08-05] MEDS: hydrALAZINE HCL 25 MG TAB PO SCH ×3 (07:42→20:23)
[2020-08-05] MEDS: PANTOprazole 40 MG TAB PO SCH ×2 (07:42→20:23)
[2020-08-05] MEDS: METOPROLOL SUCC 25MG EXT REL TAB PO SCH (07:43)
[2020-08-05] MEDS: amLODIPine BESYLATE 5 MG TAB PO SCH (07:43)
[2020-08-05] MEDS: CALCIUM ACETATE 667 MG CAP/TAB PO SCH ×3 (07:44→17:45)
[2020-08-05] MEDS: METOCLOPRAMIDE HCL INJ 5 MG/ML 2 ML VIAL IV SCH ×3 (08:47→17:05)
[2020-08-05] MEDS: FOSAPREPITANT DIMEGLUMINE 150 MG in SODIUM CHLORIDE 0.9% 145 ML IV SCH (08:47)
[2020-08-05] MEDS: COLESTIPOL HCL 1 GM TAB PO SCH ×2 (08:48→20:23)
--- NOTE | 2020-08-05 17:15 | Hospitalist Progress Note ---
Date of Service August 05, 2020 Assessment & Plan (1) COPD exacerbation: symptoms has resolved cough has improved , no complain of SOB , no fever or chills Possibly secondary to aspiration pneumonia from intractable nausea, vomiting CXR showed persistent masslike opacity within the right middle lobe, possibly representing chronic right middle lobe syndrome. Diffuse interstitial thickening. COVID 19 negative on PO Augmentin complete 5 days course Nausea/Vomiting/Diarrhea symptom has improved with Emend possible due to Gastroparesis CT abd/pelvis showed interval development of duodenal wall thickening and wall thickening and associated mesenteric infiltration associated with multiple jejunal loops. Mild colonic wall thickening with submucosal fat deposition. Interval increase in ascites S/P laparoscopically cholecystectomy 06/18/2020 S/P EGD, ERCP revealing gastric polyps status post resection 06/15/2020 Gastro consult appreciated cont Colestipol 1g BID for possible bile acid diarrhea-symptoms improved will add Lactinex pt is worried about recurrent of her symptoms wants GI to do EGD during this admission to figure out what is wrong with her abdomen pt is schedled for repeat EGD in August ESRD Nephrology on board Continue HD on Thursday//Thu vol status stable Non-small cell lung cancer (NSCLC): s/p Radiation tx Severe protein-calorie malnutrition due to poor PO intake intractable N/V -tolerating diet now will consult dietary for supplement Liver cirrhosis Ascites : worsening of abdominal distention noted pt reports of feeling SOB while lying down due to swelling of abdomen ordered for repeat ABD USG and possible paracenthesis by Radiology in A< Thrombocytopenia Due to Cirrhosis Platelet 60's on admission No sign of bleeding Continue monitor CBC History of CAD, nonischemic cardiomyopathy Denies any chest pain Continue metoprolol, simvastatin Hypertension BP stable continue hydralazine 3 times daily and metoprolol DVT prophylaxis SCDs due to Thrombocytopenia CODE STATUS Full code Disposition : expected to discharge home when medically stable Admission and Anticipated Discharge Date Admission Date: July 30, 2020 Subjective follow up visit for Nausea/vomiting : nausea has improved , able to finish breakfast and lunch tray on solid diet now worried about her symptoms to come back after being discharged home , as it happened in past discharges no cough , no fever or chills no SOB Review of Systems Review of Systems: All systems reviewed & are unremarkable except as noted in HPI & below Respiratory: no cough, no dyspnea and no dyspnea on exertion Gastrointestinal: + abdominal pain (abdomen distended ) and + diarrhea/loose stools; no nausea and no vomiting Physical Exam Constitutional: + ill appearing Eyes: + anicteric sclerae ENMT: external ear and nose normal, oropharynx normal Neck: trachea midline, no thyromegaly Respiratory: Auscultation: + diminished lung sounds Cardiovascular: RRR, no murmur, no edema Gastrointestinal (Abdomen): Inspection/Auscultation: + abdomen distended Percussion/Palpation: abdomen soft and + ascites Neurologic: PERRL, EOMI, accommodation nl, no face palsy, no dysarthria Psychiatric: A+Ox3, euthymic affect Orientation: alert Affect: + flat affect Results & Data Results & Data ([facility]) Vital Signs (Past 12 Hours) Vital Signs Temp Pulse Resp BP Pulse Ox 08/05/20 15:59 36.7 C 74 18 148/72 H 96 08/05/20 13:18 75 16 100 08/05/20 07:49 71 16 100 08/05/20 07:20 36.5 C 73 18 153/67 H 97
[2020-08-05] MEDS ORDERED: LOPERAMIDE HCL 2 MG CAP PO PRN (17:18)
[2020-08-05] MEDS: AMOXICILLIN/CLAVULANATE 500 MG TAB PO SCH (17:45)
[2020-08-05] MEDS: SIMVASTATIN 20 MG TAB PO SCH (20:22)
[2020-08-05] MEDS: ADVANCED PROBIOTIC 1250 MG CAPSULE PO SCH (20:37)
[2020-08-06] MEDS: LEVALBUTEROL 1.25MG/0.5ML NEB INH SCH ×4 (00:25→20:04)
[2020-08-06] MEDS: IPRATROPIUM BROMIDE NEB SOLN 0.02% 2.5 ML VIAL INH SCH ×4 (00:25→20:04)
[2020-08-06] MEDS: LEVOTHYROXINE SODIUM 75 MCG TABLET PO SCH (05:44)
[2020-08-06] MEDS: CALCIUM ACETATE 667 MG CAP/TAB PO SCH ×3 (08:33→17:17)
[2020-08-06] MEDS: METOCLOPRAMIDE HCL INJ 5 MG/ML 2 ML VIAL IV SCH ×3 (08:45→16:37)
--- NOTE | 2020-08-06 10:07 | Ultrasound Report ---
PARACENTESIS UNDER ULTRASOUND GUIDANCE CLINICAL HISTORY: Abdominal ascites. COMPARISON STUDY: Abdominal CT dated 07/30/2020. PROCEDURE: The risks, benefits, and alternatives to the procedure were discussed with the patient who voiced understanding. Written informed consent was obtained. Following real-time ultrasound localiza tion of a suitable pocket of fluid in the right lower quadrant, the lower abdomen was prepped and brianda ped in the usual sterile fashion. The skin and soft tissues were anesthetized with 1% lidocaine. The sheathed paracentesis needle was inserted and approximately 1.4 liters of straw-colored ascitic fluid was removed by vacuum suction. A sample was sent for laboratory analysis. The procedure was well rebeca erated and without immediate complication. The patient left the department in satisfactory condition. IMPRESSION: Successful ultrasound-guided paracentesis with removal of approximately 1.4 liters of asc itic fluid. ACT 112: Negative or not required by law. Electronically signed by: Fortunato Morris M.D. 08/06/2020 10:06 AM
[2020-08-06] MEDS: ADVANCED PROBIOTIC 1250 MG CAPSULE PO SCH ×3 (10:17→20:41)
[2020-08-06] MEDS: PANTOprazole 40 MG TAB PO SCH ×2 (10:59→20:41)
[2020-08-06] MEDS: amLODIPine BESYLATE 5 MG TAB PO SCH (10:59)
[2020-08-06] MEDS: COLESTIPOL HCL 1 GM TAB PO SCH ×2 (11:00→22:22)
[2020-08-06] MEDS: FOSAPREPITANT DIMEGLUMINE 150 MG in SODIUM CHLORIDE 0.9% 145 ML IV SCH (11:00)
[2020-08-06] MEDS: METOPROLOL SUCC 25MG EXT REL TAB PO SCH (11:00)
[2020-08-06] MEDS: hydrALAZINE HCL 25 MG TAB PO SCH ×3 (11:01→20:41)
[2020-08-06 11:14] LABS: Appearance Peritoneal Fluid CLOUDY; Basophils, Fluid 0 %; Eosinophils, Fluid 0 %; Lymphocytes, Fluid 7 %; Mono,Macrophage,Mesothelial 54 %; Neutrophils, Fluid 39 %; RBC Peritoneal Fluid (A) < 3000 /uL; WBC Peritoneal Fluid (A) 303 /ul (0-300)
[2020-08-06] MEDS ORDERED: PROCHLORPERAZINE 10 MG in SYRINGE 8 ML IV PRN (12:30)
--- NOTE | 2020-08-06 12:58 | Communication Note ---
Date of Service: August 06, 2020 Pt underwent paracentesis today with removal of approx 1.4 L of ascietic fluid peritoneal fluid analysis shows WBC > 300 suggestive of SBP gram stain : shows gram positive bacilli /culture ordered pt started on IV Rocephin 2 gm IV Q24 hrs of SBP , D/C PO Augmentin will update GI -regarding role of Rifaximin in future to prevent SBP --given pt is on dialysis Karin Jewell MD
--- NOTE | 2020-08-06 13:13 | Nephrology Progress Note ---
Date of Service August 06, 2020 Assessment & Plan (1) ESRD (end stage renal disease) on dialysis: on TRSat HD >> dialyze tomorrow on TRSat schedule; got 2L off; did miss 07/29 HD d/t weakness/vomiting. -Next dialysis will be 08/07 -no GRACIE indicated currently (2) Nausea vomiting and diarrhea: per admitting service and GI; hx of recurrent GI polyps;has nonspecific colitis, possible enteritis on imaging from admission; also with SBP now. f/u GI recs -Continue supportive management -trial of emend underway; for OP GI scopes next month -viri cytology in addition to cxs will be important after tap (3) Non-small cell lung cancer (NSCLC): s/p XRT; saw rad onc earlier this month; ? if any acute lung process here -had discussed in past w/ pulm, rad onc and opted to continue GRACIE at dialysis as indicated -- however none currently indicated (4) Thrombocytopenia: 60-90K on [facility] labs since spring 2019 > just below lower end of this range currently; ? d/t liver dz -monitor CBC daily for now Admission and Anticipated Discharge Date Admission Date: July 30, 2020 Subjective seen on rounds this am 0740; no sob, ongoing N; NPO for procedure > had paracentesis and dx'd w/ SBP Review of Systems Review of Systems: All systems reviewed & are unremarkable except as noted in HPI & below Gastrointestinal: + bloating, + nausea and + diarrhea/loose stools (she attributes to venofer); no vomiting Physical Exam Constitutional: well developed, + thin, + frail appearing and cooperative; no acute distress Eyes: EOM intact bilaterally ENMT: Ears: no external ear abnormality Nose: no external nose abnormality Mouth: + dry oral mucous membranes Neck: no nuchal rigidity Respiratory: normal respiratory effort; no respiratory distress Auscultation: + diminished lung sounds Cardiovascular: Rate/Rhythm: regular rate and regular rhythm Extremities: + edema (trace) and + AV fistula (+ t/b lue) Gastrointestinal (Abdomen): Inspection/Auscultation: + abdomen distended (markedly) and normal bowel sounds Percussion/Palpation: abdomen soft; abdomen nontender Musculoskeletal: Extremities: + abnormal strength and + muscle atrophy Skin: no rashes, warm and dry Neurologic: yao, fluent speech, no tremor Psychiatric: Orientation: alert and oriented x 3 Eye Contact: good eye contact Speech: normal rate/rhythm/volume of speech Affect: + flat affect Results & Data ([facility]) Vital Signs (Past 12 Hours) Vital Signs Temp Pulse Resp BP Pulse Ox 08/06/20 07:53 36.8 C 77 18 150/63 H 95 08/06/20 07:09 74 16 100 Laboratory Results 08/04/20 10:07 08/04/20 14:29 (1) Non-small cell lung cancer (NSCLC) Laterality: right Qualified Code(s): C34.91 - Malignant neoplasm of unspecified part of right bronchus or lung
[2020-08-06] MEDS: cefTRIAXone SODIUM 2,000 MG in DEXTROSE 5% 50 ML IV SCH (13:41)
--- NOTE | 2020-08-06 14:16 | Gastroenterology Progress Note ---
Date of Service August 06, 2020 Assessment & Plan (1) Vomitin60 year old female COPD, HTN, CHF, non ischemic cardiomyopathy, ESRD on HD, breast ca s/p sx, NSCL ca s/p radiation, GERD, gastroparesis, hypothyroidism and cirrhosis w/ nausea/vomiting despite antiemetics, ?SBP - Continue Cefrtiaxone, 5 day course - Give albumin 1.5g/kg day one - Give albumin 1g/kg day 3 - Can continue antietmics as she notes her nausea/vomiting improved - Can keep OP GI follow up per last notes Will sign off Admission and Anticipated Discharge Date Admission Date: July 30, 2020 Supervising Physician Co-Signing Physician Notes I have seen and examined the patient and discussed the management with GERONIMO Long. No vomiting reported, slighty nausea. Paracentesis completed - started on abx though sbp tap is low in neutrophils - can complete a 7 day course of abx. She is feeling a bit better. It is possible she may have a component of underlying gastroparersis, mesenteric ischemia as her last ct a/p showed extensive atherosclerosis in her abdominal vessels. continue with low residue meals, trial of antiemetics phernegan and zofran alternating helped before and emend also has helped her during this admission. She has had an egd/eus in 06/26. Subjective Recall GI, nausea Notes she is feeling slightly better but is worried about symptoms at home No abd pain No vomiting Is passing bowels No black or bloody stools Had diagnostic paracentesis, ? SBP, PMN low but Rare Gram Positive Cocci Started on ceftriaxone Review of Systems Constitutional: no fever and no chills Respiratory: no cough and no dyspnea Cardiovascular: no chest pain Gastrointestinal: + nausea Physical Exam Constitutional: + ill appearing; + not well nourished and no acute distress Respiratory: normal respiratory effort, lungs clear to auscultation Cardiovascular: Rate/Rhythm: regular rate Gastrointestinal (Abdomen): Inspection/Auscultation: normal bowel sounds Percussion/Palpation: abdomen soft; abdomen nontender, no guarding and abdomen not rigid Skin: no rashes, warm and dry Results & Data ([facility]) Vital Signs (Past 12 Hours) Vital Signs Temp Pulse Resp BP Pulse Ox 08/06/20 13:34 74 18 96 08/06/20 07:53 36.8 C 77 18 150/63 H 95 08/06/20 07:09 74 16 100 Laboratory Results 08/06/20 08/06/20 08/06/20 Range/Units Unknown Unknown Unknown Fluid Neutrophils % % Fluid Lymphocytes % % Fluid Eosinophils % % Fluid Basophils % % Fluid Mes[place]/Macro/[place] % % Peritoneal Color Peritoneal Appearance Peritoneal WBC (0-300) /ul Peritoneal RBC /uL Peritoneal Tot Protein 0.8 g/dl Peritoneal Albumin g/dl Peritoneal LDH 37 U/L Peritoneal Glucose 96 mg/dl 08/06/20 08/06/20 Range/Units Unknown Unknown Fluid Neutrophils % 39 % Fluid Lymphocytes % 7 % Fluid Eosinophils % 0 % Fluid Basophils % 0 % Fluid [place]ro/[place] % 54 % Peritoneal Color WHITE Peritoneal Appearance CLOUDY Peritoneal WBC 303 H (0-300) /ul Peritoneal RBC < 3000 /uL Peritoneal Tot Protein g/dl Peritoneal Albumin < 0.6 g/dl Peritoneal LDH U/L Peritoneal Glucose mg/dl (1) Vomiting Nausea presence: unspecified Vomiting Intractability: unspecified Vomiting type: unspecified Qualified Code(s): R11.10 - Vomiting, unspecified
--- NOTE | 2020-08-06 15:18 | Communication Note ---
Date of Service: August 06, 2020 Attending Addendum : per GI : pt will benjamin IV Cefrtiaxone, 5 day course - ordered 25% IV albumin ( 1.5g/kg) -62.5 gm X 1 today - next dose of IV albumin 1g/kg day 3 ( 08/08/20 ) - Out pt GI follow up pt reports improvement of Nausea/vomiting after starting on IV Emend PO Emend 400 mg daily will be sent to Pharmacy today to check if pt needs insurance pre auth for this med reason for PO Emend : intractable Nausea /vomiting -no improvement with trial of other antiemetics : Zofran /Phenergan /Reglan or Compazine Karin Jewell MD
[2020-08-06] MEDS: ALBUMIN 25% 12.5 GM/50 ML VIAL IV SCH ×5 (15:34→19:36)
--- NOTE | 2020-08-06 17:18 | Hospitalist Progress Note ---
Date of Service August 06, 2020 Assessment & Plan (1) SBP (spontaneous bacterial peritonitis): s/p paracenthesis with ascitic fluid WBC 303 ( see prior documentations today ) started on IV Rocephin GI eval appreciated (2) COPD exacerbation: resolved respiratory status at baseline COVID 19 negative Nausea/Vomiting/Diarrhea symptom has improved with Emend possible due to Gastroparesis /SBP ?? CT abd/pelvis showed interval development of duodenal wall thickening and wall thickening and associated mesenteric infiltration associated with multiple jejunal loops. Mild colonic wall thickening with submucosal fat deposition. Interval increase in ascites S/P laparoscopically cholecystectomy 06/18/2020 S/P EGD, ERCP revealing gastric polyps status post resection 06/15/2020 Gastro consult appreciated mangement of SBP as outlined above pt is worried about recurrent of her symptoms after discharge counselling provided , per GI no other procedure needed , scheduled for clinic follow up in Aug ESRD Nephrology on board Continue HD on Thursday//Thu vol status stable Non-small cell lung cancer (NSCLC): s/p Radiation tx Severe protein-calorie malnutrition due to poor PO intake intractable N/V -tolerating diet now will consult dietary for supplement Liver cirrhosis Ascites : s/p Paracenthesis /SBP -plan as out lined before Thrombocytopenia Due to Cirrhosis No sign of bleeding Continue monitor CBC History of CAD, nonischemic cardiomyopathy Denies any chest pain Continue metoprolol, simvastatin Hypertension BP stable continue hydralazine 3 times daily and metoprolol DVT prophylaxis SCDs due to Thrombocytopenia CODE STATUS Full code Disposition : PT/OT eval will need continued hospital stay for IV Abx /SBP expected to discharge home when medically stable Admission and Anticipated Discharge Date Admission Date: July 30, 2020 Subjective FOLLOW UP VISIT FOR NAUSEA/VOMITING : s/p paracenthesis with evidence of SBP started in IV ABx Nausea /Vomiting has resolved-tolerating diet , appetitie still remains poor abdominal pain /distension has improved after the procedure no cough or SOB , no fever or chills complains of feeling very weak and fatigued Review of Systems Review of Systems: All systems reviewed & are unremarkable except as noted in HPI & below Eyes: eyes tearing / Respiratory: no cough and no dyspnea Gastrointestinal: + heartburn; no abdominal pain, no nausea and no vomiting Physical Exam Constitutional: + ill appearing Eyes: + anicteric sclerae ENMT: external ear and nose normal, oropharynx normal Neck: trachea midline, no thyromegaly Respiratory: Auscultation: + diminished lung sounds Cardiovascular: RRR, no murmur, no edema Gastrointestinal (Abdomen): Inspection/Auscultation: + abdomen distended Percussion/Palpation: abdomen soft and + ascites Neurologic: PERRL, EOMI, accommodation nl, no face palsy, no dysarthria Psychiatric: A+Ox3, euthymic affect Orientation: alert Affect: + flat affect Results & Data Results & Data ([facility]) Vital Signs (Past 12 Hours) Vital Signs Temp Pulse Resp BP BP Pulse Ox 08/06/20 16:23 36.7 C 78 16 163/69 H 98 08/06/20 15:41 36.6 C 83 20 166/62 H 94 08/06/20 15:38 36.6 C 77 16 155/68 H 96 08/06/20 13:34 74 18 96 08/06/20 07:53 36.8 C 77 18 150/63 H 95 08/06/20 07:09 74 16 100
[2020-08-06] MEDS ORDERED: CALCIUM CARBONATE 500 MG CHEWABLE TAB PO PRN (17:43)
[2020-08-06] MEDS ORDERED: ARTIFICIAL TEARS OP STA (18:04)
[2020-08-06] MEDS ORDERED: ARTIFICIAL TEARS OP PRN (18:04)
[2020-08-06] MEDS: SIMVASTATIN 20 MG TAB PO SCH (20:42)
[2020-08-07] MEDS: IPRATROPIUM BROMIDE NEB SOLN 0.02% 2.5 ML VIAL INH SCH ×4 (00:17→20:49)
[2020-08-07] MEDS: LEVALBUTEROL 1.25MG/0.5ML NEB INH SCH ×4 (00:17→20:49)
[2020-08-07] MEDS: PROMETHAZINE HCL 6.25 MG in SODIUM CHLORIDE 0.9% 50 ML IV PRN (05:35)
[2020-08-07] MEDS: LEVOTHYROXINE SODIUM 75 MCG TABLET PO SCH (05:35)
[2020-08-07] MEDS ORDERED: SODIUM CHLORIDE 0.9% 1000ML 1,000 ML IV PRN (07:12)
[2020-08-07] MEDS: METOCLOPRAMIDE HCL INJ 5 MG/ML 2 ML VIAL IV SCH ×3 (07:41→17:16)
[2020-08-07] MEDS: hydrALAZINE HCL 25 MG TAB PO SCH ×3 (07:44→20:16)
[2020-08-07] MEDS: COLESTIPOL HCL 1 GM TAB PO SCH ×2 (10:00→22:42)
[2020-08-07] MEDS: CALCIUM ACETATE 667 MG CAP/TAB PO SCH ×3 (10:03→17:16)
[2020-08-07] MEDS: ADVANCED PROBIOTIC 1250 MG CAPSULE PO SCH ×2 (10:04→20:16)
[2020-08-07] MEDS: FOSAPREPITANT DIMEGLUMINE 150 MG in SODIUM CHLORIDE 0.9% 145 ML IV SCH (13:00)
[2020-08-07] MEDS: amLODIPine BESYLATE 5 MG TAB PO SCH (13:01)
[2020-08-07] MEDS: PANTOprazole 40 MG TAB PO SCH ×2 (13:01→20:17)
[2020-08-07] MEDS: METOPROLOL SUCC 25MG EXT REL TAB PO SCH (13:02)
[2020-08-07] MEDS: cefTRIAXone SODIUM 2,000 MG in DEXTROSE 5% 50 ML IV SCH (14:00)
--- NOTE | 2020-08-07 16:16 | Dialysis Progress Note ---
Date of Service August 07, 2020 Assessment & Plan (1) ESRD (end stage renal disease) on dialysis: on TRSat HD >> dialyze today on TRSat schedule; got 2.5L off; did miss 07/29 HD d/t weakness/vomiting. -Next dialysis will be 08/09 -no GRACIE indicated currently (2) Nausea vomiting and diarrhea: per admitting service and GI; hx of recurrent GI polyps;has nonspecific colitis, possible enteritis on imaging from admission; also with SBP now; PF cx NGTD. f/u GI recs -Continue supportive management -trial of emend underway; for OP GI scopes next month -viri cytology in addition to cxs will be important after tap (3) Non-small cell lung cancer (NSCLC): s/p XRT; saw rad onc earlier this month; ? if any acute lung process here -had discussed in past w/ pulm, rad onc and opted to continue GRACIE at dialysis as indicated -- however none currently indicated (4) Thrombocytopenia: 60-90K on [facility] labs since spring 2019 > just below lower end of this range currently; ? d/t liver dz -monitor CBC q48h for now Admission and Anticipated Discharge Date Admission Date: July 30, 2020 Subjective ongoing N but no emesis; again unable to eat supper last evening; seen on rounds at about noon on hd; no sob; ongoing mild periumbilical abd discomfort Review of Systems Review of Systems: All systems reviewed & are unremarkable except as noted in HPI & below Physical Exam Constitutional: well developed, + thin, + frail appearing and cooperative; no acute distress Eyes: EOM intact bilaterally ENMT: Ears: no external ear abnormality Nose: no external nose abnormality Mouth: + dry oral mucous membranes Neck: no nuchal rigidity Respiratory: normal respiratory effort; no respiratory distress Auscultation: + diminished lung sounds Cardiovascular: RRR, no murmur, no edema Extremities: + AV fistula (+ t/b lue) Gastrointestinal (Abdomen): Inspection/Auscultation: + abdomen distended (markedly) and normal bowel sounds Percussion/Palpation: abdomen soft; abdomen nontender Musculoskeletal: Extremities: + abnormal strength and + muscle atrophy Skin: no rashes, warm and dry Neurologic: yao, fluent speech, no tremor Psychiatric: Orientation: alert and oriented x 3 Eye Contact: good eye contact Speech: normal rate/rhythm/volume of speech Affect: + flat affect Results & Data ([facility]) Vital Signs (Past 12 Hours) Vital Signs Temp Pulse Pulse Pulse Resp BP BP 08/07/20 15:47 36.8 C 91 H 20 131/55 L 08/07/20 13:13 91 H 18 08/07/20 12:35 36.7 C 83 83 150/62 H 150/62 H 08/07/20 12:20 82 117/52 L 08/07/20 12:00 83 121/58 L 08/07/20 11:40 81 124/57 L 08/07/20 11:20 84 127/62 08/07/20 11:00 84 139/61 08/07/20 10:40 83 134/61 08/07/20 10:20 79 132/66 08/07/20 10:00 93 H 148/67 H 08/07/20 09:40 93 H 142/63 H 08/07/20 09:20 84 137/65 08/07/20 09:03 36.9 C 86 86 159/71 H 08/07/20 08:00 36.6 C 83 18 162/71 H 08/07/20 07:14 82 18 Pulse Ox 08/07/20 15:47 98 08/07/20 13:13 98 08/07/20 12:35 08/07/20 12:20 08/07/20 12:00 08/07/20 11:40 08/07/20 11:20 08/07/20 11:00 08/07/20 10:40 08/07/20 10:20 08/07/20 10:00 08/07/20 09:40 08/07/20 09:20 08/07/20 09:03 08/07/20 08:00 97 08/07/20 07:14 97 Laboratory Results 08/04/20 10:07 08/04/20 14:29 (1) Non-small cell lung cancer (NSCLC) Laterality: right Qualified Code(s): C34.91 - Malignant neoplasm of unspecified part of right bronchus or lung
--- NOTE | 2020-08-07 17:24 | Hospitalist Progress Note ---
Date of Service August 07, 2020 Assessment & Plan (1) SBP (spontaneous bacterial peritonitis): s/p paracenthesis with ascitic fluid WBC 303 started on IV Rocephin peritoneal fluid :gram stain positive for few gram positive cocci culture: no growth to date GI eval appreciated : pt received Iv Albumin [facility] ID consulted - (2) COPD exacerbation: resolved respiratory status at baseline COVID 19 negative Nausea/Vomiting/Diarrhea symptom has resolved with Emend script for PO Emend sent to Pt' Pharmacy [facility] at [place] pre Auth pending admitted with intractable N/V : possible due to Gastroparesis /SBP ?? Diarrhea improved after addition of Colestid - CT abd/pelvis showed interval development of duodenal wall thickening and wall thickening and associated mesenteric infiltration associated with multiple jejunal loops. Mild colonic wall thickening with submucosal fat deposition. Interval increase in ascites S/P laparoscopically cholecystectomy 06/18/2020 S/P EGD, ERCP revealing gastric polyps status post resection 06/15/2020 Gastro consult appreciated -no plan for repeat EGD this admission ,GI clinic follow up scheduled in Dec ESRD Nephrology on board Continue HD on Thursday//Thu vol status stable Non-small cell lung cancer (NSCLC): s/p Radiation tx Severe protein-calorie malnutrition due to poor PO intake intractable N/V -tolerating diet now nutrition consulted Liver cirrhosis Ascites : s/p Paracenthesis almost 1.4 L ascitic fluid drainage , possible SBP , management as outlined above Thrombocytopenia Due to Cirrhosis No sign of bleeding Continue monitor CBC History of CAD, nonischemic cardiomyopathy Denies any chest pain Continue metoprolol, simvastatin Hypertension BP stable continue hydralazine 3 times daily and metoprolol DVT prophylaxis SCDs due to Thrombocytopenia CODE STATUS Full code Disposition : expected to discharge home when medically stable Admission and Anticipated Discharge Date Admission Date: July 30, 2020 Subjective FOLLOW UP VISIT FOR NAUSEA/VOMITING : pt reports of feeling better Nausea /Vomiting has resolved-appetite has improved more spirited today, walking independently no cough or SOB , no fever or chills Review of Systems Review of Systems: All systems reviewed & are unremarkable except as noted in HPI & below Physical Exam Constitutional: + ill appearing Eyes: + anicteric sclerae ENMT: external ear and nose normal, oropharynx normal Neck: trachea midline, no thyromegaly Respiratory: Auscultation: + diminished lung sounds Cardiovascular: RRR, no murmur, no edema Gastrointestinal (Abdomen): Percussion/Palpation: abdomen soft and + ascites Neurologic: PERRL, EOMI, accommodation nl, no face palsy, no dysarthria Psychiatric: A+Ox3, euthymic affect Results & Data Results & Data ([facility]) Vital Signs (Past 12 Hours) Vital Signs Temp Pulse Pulse Pulse Resp BP BP 08/07/20 15:47 36.8 C 91 H 20 131/55 L 08/07/20 13:13 91 H 18 08/07/20 12:35 36.7 C 83 83 150/62 H 150/62 H 08/07/20 12:20 82 117/52 L 08/07/20 12:00 83 121/58 L 08/07/20 11:40 81 124/57 L 08/07/20 11:20 84 127/62 08/07/20 11:00 84 139/61 08/07/20 10:40 83 134/61 08/07/20 10:20 79 132/66 08/07/20 10:00 93 H 148/67 H 08/07/20 09:40 93 H 142/63 H 08/07/20 09:20 84 137/65 08/07/20 09:03 36.9 C 86 86 159/71 H 08/07/20 08:00 36.6 C 83 18 162/71 H 08/07/20 07:14 82 18 Pulse Ox 08/07/20 15:47 98 08/07/20 13:13 98 08/07/20 12:35 08/07/20 12:20 08/07/20 12:00 08/07/20 11:40 08/07/20 11:20 08/07/20 11:00 08/07/20 10:40 08/07/20 10:20 08/07/20 10:00 08/07/20 09:40 08/07/20 09:20 08/07/20 09:03 08/07/20 08:00 97 08/07/20 07:14 97
[2020-08-07] MEDS: SIMVASTATIN 20 MG TAB PO SCH (20:17)
[2020-08-08] MEDS: LEVALBUTEROL 1.25MG/0.5ML NEB INH SCH ×4 (00:06→19:06)
[2020-08-08] MEDS: IPRATROPIUM BROMIDE NEB SOLN 0.02% 2.5 ML VIAL INH SCH ×4 (00:06→19:06)
[2020-08-08] MEDS: LEVOTHYROXINE SODIUM 75 MCG TABLET PO SCH (05:56)
[2020-08-08] MEDS: CALCIUM ACETATE 667 MG CAP/TAB PO SCH ×3 (08:54→17:30)
[2020-08-08] MEDS: METOCLOPRAMIDE HCL INJ 5 MG/ML 2 ML VIAL IV SCH ×3 (08:54→17:30)
[2020-08-08] MEDS: amLODIPine BESYLATE 5 MG TAB PO SCH (08:54)
[2020-08-08] MEDS: PANTOprazole 40 MG TAB PO SCH ×2 (08:55→20:19)
[2020-08-08] MEDS: ADVANCED PROBIOTIC 1250 MG CAPSULE PO SCH ×2 (08:55→20:19)
[2020-08-08] MEDS: hydrALAZINE HCL 25 MG TAB PO SCH ×3 (08:55→20:19)
[2020-08-08] MEDS: METOPROLOL SUCC 25MG EXT REL TAB PO SCH (08:55)
[2020-08-08] MEDS: COLESTIPOL HCL 1 GM TAB PO SCH ×2 (08:56→22:17)
[2020-08-08] MEDS ORDERED: Nursing to Pharmacy Communication SCH (10:30)
[2020-08-08] MEDS: FOSAPREPITANT DIMEGLUMINE 150 MG in SODIUM CHLORIDE 0.9% 145 ML IV SCH ×2 (10:47→10:52)
[2020-08-08] MEDS: cefTRIAXone SODIUM 2,000 MG in DEXTROSE 5% 50 ML IV SCH (13:15)
--- NOTE | 2020-08-08 19:14 | Hospitalist Progress Note ---
Date of Service August 08, 2020 Assessment & Plan (1) SBP (spontaneous bacterial peritonitis): s/p paracenthesis with ascitic fluid WBC 303 started on IV Rocephin peritoneal fluid :gram stain positive for few gram positive cocci culture: no growth to date GI eval appreciated : pt received Iv Albumin [facility] ID consulted - (2) COPD exacerbation: resolved respiratory status at baseline COVID 19 negative Nausea/Vomiting/Diarrhea symptom has resolved with Emend script for PO Emend sent to Pt' Pharmacy [facility] at [place] pre Auth pending admitted with intractable N/V : possible due to Gastroparesis /SBP ?? Diarrhea improved after addition of Colestid - CT abd/pelvis showed interval development of duodenal wall thickening and wall thickening and associated mesenteric infiltration associated with multiple jejunal loops. Mild colonic wall thickening with submucosal fat deposition. Interval increase in ascites S/P laparoscopically cholecystectomy 06/18/2020 S/P EGD, ERCP revealing gastric polyps status post resection 06/15/2020 Gastro consult appreciated -no plan for repeat EGD this admission ,GI clinic follow up scheduled in Aug ESRD Nephrology on board Continue HD on Thursday//Thu vol status stable Non-small cell lung cancer (NSCLC): s/p Radiation tx Severe protein-calorie malnutrition due to poor PO intake intractable N/V -tolerating diet now nutrition consulted Liver cirrhosis Ascites : s/p Paracenthesis almost 1.4 L ascitic fluid drainage , possible SBP , management as outlined above Thrombocytopenia Due to Cirrhosis No sign of bleeding Continue monitor CBC History of CAD, nonischemic cardiomyopathy Denies any chest pain Continue metoprolol, simvastatin Hypertension BP stable continue hydralazine 3 times daily and metoprolol DVT prophylaxis SCDs due to Thrombocytopenia CODE STATUS Full code Disposition : expected to discharge home when medically stable Admission and Anticipated Discharge Date Admission Date: July 30, 2020 Subjective Pt was seen and examined Lying in bed with no distress Pt aid that she continues to have nausea Denies any chest pain, palpitation, dizziness and SOB Physical Exam Physical Exam: General- No acute distress, frail Head- atraumatic Eyes- PERRL, EOMI, ENT- oropharynx clear Neck- supple, no JVD Lungs- +diminished BS Heart- regular rhythm; no murmur Abdomen- normal bowel sounds, soft, nontender Extremities- no calf tenderness Neuro- alert, oriented x 3; PERRL, EOMI; no facial palsy; no dysarthria Skin- warm & dry Results & Data Results & Data ([facility]) Vital Signs (Past 12 Hours) Vital Signs Temp Pulse Resp BP Pulse Ox 08/08/20 19:08 84 16 98 08/08/20 16:27 36.6 C 82 18 151/64 H 97 08/08/20 13:22 80 16 99 08/08/20 08:23 36.5 C 84 16 146/57 H 90 08/08/20 07:25 85 20 97
--- NOTE | 2020-08-08 19:33 | Nephrology Progress Note ---
Date of Service August 08, 2020 Assessment & Plan (1) ESRD (end stage renal disease) on dialysis: on TRSat HD >> dialyze today on TRSat schedule; got 2.5L off yesterday; did miss 07/29 HD d/t weakness/vomiting. -Next dialysis will be 08/09 and will be slightly more aggressive again with UF, though I do note her blood pressure was quite labile on treatment on August 07 -no GRACIE indicated currently (2) Nausea vomiting and diarrhea: per admitting service and GI; hx of recurrent GI polyps;has nonspecific colitis, possible enteritis on imaging from admission; also with SBP now; PF cx NGTD. f/u GI recs -Continue supportive management -trial of emend underway; for OP GI scopes next month -viri cytology in addition to cxs will be important after tap -Infectious diseases following no antimicrobials needed. Recommend stool for ova and parasite x3 and eval for histoplasma. Note patient is an uric (3) Non-small cell lung cancer (NSCLC): s/p XRT; saw rad onc earlier this month; ? if any acute lung process here -had discussed in past w/ pulm, rad onc and opted to continue GRACIE at dialysis as indicated -- however none currently indicated (4) Thrombocytopenia: 60-90K on [facility] labs since spring 2019 > just below lower end of this range currently; ? d/t liver dz -monitor CBC q48h for now Admission and Anticipated Discharge Date Admission Date: July 30, 2020 Subjective Seen on evening rounds. Ongoing nausea which continues to wake her up abruptly from sleep. Minimal oral intake. Note she needs more oxygen this afternoon. Thinks her abdomen is more distended. Mild periumbilical pain with nausea Review of Systems Review of Systems: All systems reviewed & are unremarkable except as noted in HPI & below Physical Exam Constitutional: well developed, + thin, + frail appearing and cooperative; no acute distress Eyes: EOM intact bilaterally ENMT: Ears: no external ear abnormality Nose: no external nose abnormality Mouth: + dry oral mucous membranes Neck: no nuchal rigidity Respiratory: normal respiratory effort; no respiratory distress Auscultation: + diminished lung sounds Cardiovascular: RRR, no murmur, no edema Rate/Rhythm: regular rate and regular rhythm Extremities: + AV fistula (+ t/b lue) Gastrointestinal (Abdomen): Inspection/Auscultation: + abdomen distended (inCreased) and normal bowel sounds Percussion/Palpation: abdomen soft; abdomen nontender Musculoskeletal: Extremities: + abnormal strength and + muscle atrophy Skin: no rashes, warm and dry Neurologic: Was all extremities, fluent speech, no tremor Psychiatric: Orientation: alert and oriented x 3 Eye Contact: good eye contact Speech: normal rate/rhythm/volume of speech Affect: + flat affect Results & Data ([facility]) Vital Signs (Past 12 Hours) Vital Signs Temp Pulse Resp BP Pulse Ox 08/08/20 19:08 84 16 98 08/08/20 16:27 36.6 C 82 18 151/64 H 97 08/08/20 13:22 80 16 99 08/08/20 08:23 36.5 C 84 16 146/57 H 90 (1) Non-small cell lung cancer (NSCLC) Laterality: right Qualified Code(s): C34.91 - Malignant neoplasm of unspecified part of right bronchus or lung
[2020-08-08] MEDS: SIMVASTATIN 20 MG TAB PO SCH (20:19)
[2020-08-09] MEDS: LEVALBUTEROL 1.25MG/0.5ML NEB INH SCH ×4 (00:05→19:46)
[2020-08-09] MEDS: IPRATROPIUM BROMIDE NEB SOLN 0.02% 2.5 ML VIAL INH SCH ×4 (00:05→19:46)
[2020-08-09] MEDS: LEVOTHYROXINE SODIUM 75 MCG TABLET PO SCH (06:02)
[2020-08-09] MEDS ORDERED: SODIUM CHLORIDE 0.9% 1000ML 1,000 ML IV PRN (08:08)
[2020-08-09] MEDS: hydrALAZINE HCL 25 MG TAB PO SCH ×3 (08:32→20:59)
[2020-08-09] MEDS: METOCLOPRAMIDE HCL INJ 5 MG/ML 2 ML VIAL IV SCH ×3 (08:34→17:56)
[2020-08-09] MEDS: CALCIUM ACETATE 667 MG CAP/TAB PO SCH ×3 (09:55→18:21)
[2020-08-09] MEDS: PANTOprazole 40 MG TAB PO SCH ×2 (09:55→21:00)
[2020-08-09] MEDS: ADVANCED PROBIOTIC 1250 MG CAPSULE PO SCH ×2 (09:55→21:00)
[2020-08-09] MEDS: COLESTIPOL HCL 1 GM TAB PO SCH ×2 (09:56→21:00)
[2020-08-09 12:03] LABS: BUN Creatinine Ratio 6.3 (10-20); Calcium 8.2 mg/dl (8.5-10.1); Creatinine Clr Calc Pharmacy 7.7 ml/min; Est GFR (African American) 9.9; Est GFR (Non-African American) 8.5; Potassium 3.9 mmol/L (3.5-5.1)
[2020-08-09 12:05] LABS: Hematocrit (blood only) 33.8 % (37-47); Hemoglobin 10.3 g/dL (12.0-16.0); Mean Corpuscular Hemoglobin 27.2 pg (25-34); Mean Corpuscular Hgb Conc 30.5 g/dL (32-36); Mean Corpuscular Volume 89.4 fL (80-100); Mean Platelet Volume 11.8 fL (7.4-10.4); Platelet Count 36 K/uL (130-400); RDW Coefficient of Variation 20.7 % (11.5-14.5); RDW Standard Deviation 68.1 fL (36.4-46.3); Red Blood Count 3.78 M/uL (4.2-5.4); White Blood Count 5.26 K/uL (4.8-10.8)
--- NOTE | 2020-08-09 13:48 | Dialysis Progress Note ---
Date of Service August 09, 2020 Assessment & Plan (1) ESRD (end stage renal disease) on dialysis: on TRSat HD >> dialyze today on TRSat schedule; got 2.5L off yesterday; did miss 07/29 HD d/t weakness/vomiting. -Next dialysis will be 08/09 and will be slightly more aggressive again with UF, though I do note her blood pressure was quite labile on treatment on August 07 -no GRACIE indicated currently (2) Nausea vomiting and diarrhea: per admitting service and GI; hx of recurrent GI polyps;has nonspecific colitis, possible enteritis on imaging from admission; also with SBP now; PF cx NGTD. f/u GI recs -Continue supportive management -trial of emend underway; for OP GI scopes next month -viri cytology in addition to cxs will be important after tap -Infectious diseases following no antimicrobials needed. Recommend stool for ova and parasite x3 and eval for histoplasma. Note patient is an uric (3) Non-small cell lung cancer (NSCLC): s/p XRT; saw rad onc earlier this month; ? if any acute lung process here -had discussed in past w/ pulm, rad onc and opted to continue GRACIE at dialysis as indicated -- however none currently indicated (4) Thrombocytopenia: 60-90K on [facility] labs since spring 2019 > just below lower end of this range currently; ? d/t liver dz >>thrombocytopenia lower than baseline; monitor -monitor CBC q48h for now Admission and Anticipated Discharge Date Admission Date: July 30, 2020 Subjective seen on dialysis; for repeat tap tomorrow per pt; less N but still present; still minimal po; no sob; bp higher today Review of Systems Review of Systems: All systems reviewed & are unremarkable except as noted in HPI & below Physical Exam Constitutional: well developed, + thin, + frail appearing and cooperative; no acute distress Eyes: EOM intact bilaterally ENMT: Ears: no external ear abnormality Nose: no external nose abnormality Mouth: + dry oral mucous membranes Neck: no nuchal rigidity Respiratory: normal respiratory effort; no respiratory distress Auscultation: + diminished lung sounds Cardiovascular: RRR, no murmur, no edema Rate/Rhythm: regular rate and regular rhythm Extremities: + AV fistula (+ t/b lue) Gastrointestinal (Abdomen): Inspection/Auscultation: + abdomen distended (inCreased) and normal bowel sounds Percussion/Palpation: abdomen soft; abdomen nontender Musculoskeletal: Extremities: + abnormal strength and + muscle atrophy Skin: no rashes, warm and dry Neurologic: yao, fluent speech, not remor Psychiatric: Orientation: alert and oriented x 3 Eye Contact: good eye contact Speech: normal rate/rhythm/volume of speech Affect: + flat affect Results & Data ([facility]) Vital Signs (Past 12 Hours) Vital Signs Temp Pulse Pulse Pulse Resp BP BP 08/09/20 12:35 37.0 C 81 81 140/57 L 140/57 L 08/09/20 12:20 87 127/57 L 08/09/20 12:00 85 123/53 L 08/09/20 11:40 87 149/58 H 08/09/20 11:20 84 141/58 H 08/09/20 11:00 83 140/55 L 08/09/20 10:40 85 139/65 08/09/20 10:20 87 160/62 H 08/09/20 10:00 85 148/58 H 08/09/20 09:40 83 143/55 H 08/09/20 09:20 88 93/65 L 08/09/20 09:03 36.6 C 89 89 175/79 H 08/09/20 08:35 36.5 C 86 18 176/69 H 08/09/20 07:18 92 H 16 Pulse Ox 08/09/20 12:35 08/09/20 12:20 08/09/20 12:00 08/09/20 11:40 08/09/20 11:20 08/09/20 11:00 08/09/20 10:40 08/09/20 10:20 08/09/20 10:00 08/09/20 09:40 08/09/20 09:20 08/09/20 09:03 08/09/20 08:35 97 08/09/20 07:18 99 Laboratory Results 08/09/20 09:09 08/09/20 09:09 (1) Non-small cell lung cancer (NSCLC) Laterality: right Qualified Code(s): C34.91 - Malignant neoplasm of unspecified part of right bronchus or lung
[2020-08-09] MEDS: amLODIPine BESYLATE 5 MG TAB PO SCH (13:58)
[2020-08-09] MEDS: METOPROLOL SUCC 25MG EXT REL TAB PO SCH (13:58)
[2020-08-09] MEDS: FOSAPREPITANT DIMEGLUMINE 150 MG in SODIUM CHLORIDE 0.9% 145 ML IV SCH (14:07)
[2020-08-09] MEDS: cefTRIAXone SODIUM 2,000 MG in DEXTROSE 5% 50 ML IV SCH (14:43)
--- NOTE | 2020-08-09 20:20 | Hospitalist Progress Note ---
Date of Service August 09, 2020 Assessment & Plan (1) SBP (spontaneous bacterial peritonitis): s/p paracenthesis with ascitic fluid WBC 303 started on IV Rocephin peritoneal fluid cx showed no growth GI eval appreciated : pt received Iv Albumin Received rocephin for 4 days [facility] ID consulted recommended to discontinue the abx with Rocephin Stable (2) COPD exacerbation: resolved respiratory status at baseline COVID 19 negative Nausea/Vomiting/Diarrhea Diarrhea improved after addition of Colestid - CT abd/pelvis showed interval development of duodenal wall thickening and wall thickening and associated mesenteric infiltration associated with multiple jejunal loops. Mild colonic wall thickening with submucosal fat deposition. Interval increase in ascites S/P laparoscopically cholecystectomy 06/18/2020 S/P EGD, ERCP revealing gastric polyps status post resection 06/15/2020 Gastro consult appreciated -no plan for repeat EGD this admission Nausea improved with Emend ID recommended to check stools for oval and parasites - pending script for PO Emend sent to [facility] [place], but too expensive since it will cost $1800 dollars Follow up with Gastro Dr. Paulson on 08/17 @ 8:30 AM for endoscopy ESRD Nephrology on board Continue HD on Thursday//Sat Next HD tomorrow Stable Non-small cell lung cancer (NSCLC): s/p Radiation tx Severe protein-calorie malnutrition due to poor PO intake intractable N/V -tolerating diet now nutrition consulted Liver cirrhosis Ascites : s/p Paracenthesis almost 1.4 L ascitic fluid drainage , s/p paracenthesis with ascitic fluid WBC 303 peritoneal fluid cx showed no growth GI eval appreciated : pt received Iv Albumin Received rocephin for 4 days [facility] ID consulted recommended to discontinue the abx with Rocephin since peritoneal fluid suggest no infection Stable Thrombocytopenia Due to Cirrhosis No sign of bleeding Continue monitor CBC History of CAD, nonischemic cardiomyopathy Denies any chest pain Continue metoprolol, simvastatin Hypertension BP stable continue hydralazine 3 times daily and metoprolol DVT prophylaxis SCDs due to Thrombocytopenia CODE STATUS Full code Disposition : Will discharge home today Follow up with your primary care Dr. Barnes on 08/15 @ 11:20 AM Admission and Anticipated Discharge Date Admission Date: July 30, 2020 Subjective Pt was seen and examined Lying in bed with no distress She said that the emend helps with the nausea She would not be able to afford it since the emend will cost her $1800 dollars for 1 month supply Denies any chest pain, palpitation, dizziness and fever Physical Exam Physical Exam: General- No acute distress, frail Head- atraumatic Eyes- PERRL, EOMI, ENT- oropharynx clear Neck- supple, no JVD Lungs- +diminished BS Heart- regular rhythm; no murmur Abdomen- normal bowel sounds, +ascites Extremities- no calf tenderness Neuro- alert, oriented x 3; PERRL, EOMI; no facial palsy; no dysarthria Skin- warm & dry Results & Data Results & Data ([facility]) Vital Signs (Past 12 Hours) Vital Signs Temp Pulse Pulse Pulse Resp BP BP 08/09/20 19:46 73 18 08/09/20 13:49 96 H 18 08/09/20 12:35 37.0 C 81 81 140/57 L 140/57 L 08/09/20 12:20 87 127/57 L 08/09/20 12:00 85 123/53 L 08/09/20 11:40 87 149/58 H 08/09/20 11:20 84 141/58 H 08/09/20 11:00 83 140/55 L 08/09/20 10:40 85 139/65 08/09/20 10:20 87 160/62 H 08/09/20 10:00 85 148/58 H 08/09/20 09:40 83 143/55 H 08/09/20 09:20 88 93/65 L 08/09/20 09:03 36.6 C 89 89 175/79 H 08/09/20 08:35 36.5 C 86 18 176/69 H Pulse Ox 08/09/20 19:46 95 08/09/20 13:49 08/09/20 12:35 08/09/20 12:20 08/09/20 12:00 08/09/20 11:40 08/09/20 11:20 08/09/20 11:00 08/09/20 10:40 08/09/20 10:20 08/09/20 10:00 08/09/20 09:40 08/09/20 09:20 08/09/20 09:03 08/09/20 08:35 97
[2020-08-09] MEDS: SIMVASTATIN 20 MG TAB PO SCH (20:59)
[2020-08-10] MEDS: IPRATROPIUM BROMIDE NEB SOLN 0.02% 2.5 ML VIAL INH SCH ×3 (00:42→13:40)
[2020-08-10] MEDS: LEVALBUTEROL 1.25MG/0.5ML NEB INH SCH ×3 (00:42→13:40)
[2020-08-10] MEDS: LEVOTHYROXINE SODIUM 75 MCG TABLET PO SCH (05:55)
[2020-08-10] MEDS: CALCIUM ACETATE 667 MG CAP/TAB PO SCH ×2 (08:24→12:56)
[2020-08-10] MEDS: METOPROLOL SUCC 25MG EXT REL TAB PO SCH (08:33)
[2020-08-10] MEDS: amLODIPine BESYLATE 5 MG TAB PO SCH (08:33)
[2020-08-10] MEDS: hydrALAZINE HCL 25 MG TAB PO SCH ×2 (08:33→13:03)
[2020-08-10] MEDS: METOCLOPRAMIDE HCL INJ 5 MG/ML 2 ML VIAL IV SCH ×2 (08:35→12:55)
--- NOTE | 2020-08-10 10:15 | Ultrasound Report ---
ULTRASOUND ASCITES CHECK CLINICAL HISTORY: Abdominal ascites. Assess for paracentesis. COMPARISON STUDY: Abdominal CT dated 07/30/2020. FINDINGS: Real-time grayscale sonography of all 4 quadrants of the abdomen is performed to assess for abdominal ascites. There is trace abdominopelvic ascites. This was insufficient for paracentesis. Ci rrhotic liver morphology is incidentally noted. IMPRESSION: Trace abdominopelvic ascites was insufficient for paracentesis. Electronically signed by: Fortunato Morris M.D. 08/10/2020 10:13 AM
[2020-08-10] MEDS: PANTOprazole 40 MG TAB PO SCH (10:45)
[2020-08-10] MEDS: ADVANCED PROBIOTIC 1250 MG CAPSULE PO SCH ×2 (10:45→12:56)
[2020-08-10] MEDS: FOSAPREPITANT DIMEGLUMINE 150 MG in SODIUM CHLORIDE 0.9% 145 ML IV SCH (12:54)
[2020-08-10] MEDS: COLESTIPOL HCL 1 GM TAB PO SCH (14:02)
--- NOTE | 2020-08-10 15:08 | Discharge Summary ---
Date of Service August 10, 2020 Admission HPI Per Admitting Provider History obtained from patient and records. Medical history significant for chronic respiratory failure secondary to COPD/ILD on home O2, hypertension, chronic diastolic HF 2 to non-ischemic cardiomyopathy (TTE EF 55-60%, 2019), CAD/PVD as per records, ESRD on hemodialysis, breast cancer sp surgery, non-small cell lung cancer status post radiation, past tobacco abuse, GERD, gastroparesis as per records, hypothyroidism, cirrhosis, chronic thrombocytopenia, hx pulmonary vasculitis as per records. Recent confinement from June 28-2019 for persistent nausea, vomiting, diarrhea symptoms post cholecystectomy (06/18/20). Stool work-up unremarkable. GI recommended antiemetics and outpatient colonoscopy. Persistent symptoms associated with epigastric discomfort following discharge from the hospital. No unusual headache symptoms. About 15 pound weight loss. 2 ER visits for intractable symptoms so far this month. Patient seen by GI outpatient last week. Repeat EGD contemplated as per documentation. Symptoms unresponsive to Reglan and Phenergan suppository prescriptions from GI in the last week. Patient noted junky cough symptoms more than usual the last 2 days. No fever, no chills, some shortness of breath and noisy breathing noted at home. Patient brought to the ER for evaluation. MEDICAL HISTORY: As above. 06/26/2020 EGD showed normal gastric fundus and gastric body. Multiple gastric polyps. 2013 colonoscopy showed internal hemorrhoids Hemodialysis Thursday SURGERIES: Mastectomy, thyroidectomy, vascular procedures, back surgery. FAMILY HISTORY: Breast cancer, stroke. PERSONAL AND SOCIAL HISTORY: Past tobacco abuse. No chronic intake of alcohol. Disabled. Admission Exam Per Admitting Provider GENERAL: uncomfortable, chronically ill, underweight, no respiratory distress SKIN: Normal color, warm HEENT: Auberry palpebral conjunctivae, no ptosis, dry buccal mucosa NECK : Supple, no tenderness CHEST : Bilateral rhonchi with expiratory wheezes, no tenderness HEART : RRR, no obvious murmurs ABDOMEN: Some distention, minimal epigastric tenderness r EXTREMITIES : No LE swelling/tenderness, no other conspicuous deformities noted NEUROLOGIC : Coherent, no facial asymmetry, no other gross focality Principal Diagnosis INTRACTABLE NAUSEA /VOMITING LIVER CIRRHOSIS SBP ( SPONTANEOUS BACTERIAL PERITONITIS ) END STAGE KIDNEY DISEASE ON DIALYSIS ACUTE ON CHRONIC RESPIRATORY FAILURE WITH HYPOXIA -COPD EXACERBATION /RESOLVED CHRONIC THROMBOCYTOPENIA Discharge Exam General- No acute distress, frail Head- atraumatic Eyes- PERRL, EOMI, ENT- oropharynx clear Neck- supple, no JVD Lungs- +diminished BS Heart- regular rhythm; no murmur Abdomen- normal bowel sounds, +ascites Extremities- no calf tenderness Neuro- alert, oriented x 3; PERRL, EOMI; no facial palsy; no dysarthria Skin- warm & dry Discharge Data Allergies Allergy/AdvReac Type Severity Reaction Status Date / Time atropine Allergy Severe Dyspnea Verified 08/14/20 11:43 linezolid Allergy Severe Thrombocyto Verified 08/14/20 11:43 penia naproxen Allergy Severe Facial Verified 08/14/20 11:43 edema dipyridamole Allergy Intermediate "Bad Verified 08/14/20 11:43 reaction" per records vancomycin Allergy Intermediate Rash/tommy Verified 08/14/20 11:43 syndrome aspirin AdvReac Intermediate Abdominal Verified 08/14/20 11:43 cramping Consultations 07/30/20 05:58 ED Decision to Admit Stat 07/30/20 11:43 Consult Gastroenterology Routine Consult Nephrology Routine 08/06/20 13:10 Consult Infectious Diseases Routine Ordered Studies 07/30/20 04:33 CT abd pelvis wo con Urgent 07/31/20 10:00 US abdomen ltd ascites Routine 07/31/20 10:47 FL GI series Routine 08/06/20 09:00 US paracentesis abd w/image Routine 08/10/20 07:00 US abdomen ltd ascites Routine CT OF THE ABDOMEN AND PELVIS WITHOUT CONTRAST CLINICAL HISTORY: Abdominal pain and distention. COMPARISON STUDY: CT of the abdomen and pelvis July 23, 2020. TECHNIQUE: Axial images of the abdomen and pelvis were obtained without IV contrast. Images were reviewed in the axial, sagittal, and coronal planes. Automated exposure control was utilized for the study. A dose lowering technique was utilized adhering to the principles of ALARA. FINDINGS: Imaged portions of the chest partially visualize extensive hyperdense right middle lobe opacity. There are bilateral lower lobe airspace opacities which are hyperdense, greater on the right. These include a 3 cm right lower lobe hyperdensity. Interlobular septal thickening is noted with groundglass opacities and small pulmonary nodules. Evaluation of the abdomen and pelvis is suboptimal as unenhanced examination. The liver is cirrhotic. Innumerable hypodensities within the spleen are chronic. Slight dilatation of the common bile duct is unchanged. This is likely related to cholecystectomy. Unenhanced images of the pancreas are unremarkable. There is marked atrophy of both kidneys. Note is made of mild wall thickening and infiltration adjacent to the duodenum and several jejunal loops. There is mild mesenteric infiltration associated with several jejunal loops. This has developed since prior examination. Extensive atherosclerotic plaque of the abdominal aorta is noted. There is no evidence for acute appendicitis. Submucosal fat deposition within the colon is noted. There is mild colonic wall thickening. A small amount of ascites is increased since prior examination. There is no evidence for a bowel obstruction. No suspicious lesions are identified within visualized skeletal structures. There is no lymphadenopathy. Small right inguinal hernia contains a small amount of ascites. IMPRESSION: 1. Interval development of duodenal wall thickening and wall thickening and associated mesenteric infiltration associated with multiple jejunal loops. This favors a nonspecific enteritis. 2. Mild colonic wall thickening with submucosal fat deposition. This is likely chronic however a nonspecific colitis cannot be excluded. 3. Interval increase in ascites. 4. Cirrhosis with evidence for portal hypertension. Stable splenomegaly and innumerable hypodense splenic lesions. 5. Redemonstration of numerous irregular hyperdense foci within the lower lungs, the largest of which is within the right middle lobe. This favors aspirated material. Interlobular septal thickening and groundglass opacities are similar to prior exam. Short-term follow-up chest CT is recommended in 2 months. ACT 112: Negative or not required by law. Electronically signed by: Hemal Rushing M.D. 07/30/2020 6:55 AM Dictated: 07/30/2042Transcribed: 07/30/20641 XR chest 1V portable CLINICAL HISTORY: cough, sob COMPARISON STUDY: 06/05/2020 FINDINGS: The cardiac and mediastinal contours remain stable. There is persistent diffuse interstitial thickening. There is a persistent right middle lobe opacity, possibly representing chronic right middle lobe syndrome. There are subsegmental atelectatic changes at the lung bases. There are surgical clips projected over the left axillary region. There is a vascular stent projected over the left axillary region.[ IMPRESSION: 1. Persistent masslike opacity within the right middle lobe, possibly representing chronic right middle lobe syndrome. 2. Diffuse interstitial thickening. Diagnostic considerations include chronic interstitial lung disease, interstitial cardiogenic edema, or a bilateral interstitial infectious/inflammatory process. 3. Clinical and radiographic follow-up is recommended. ACT 112: Negative or not required by law. Electronically signed by: Rip Prince M.D. 07/30/2020 8:40 AM Dictated: 07/30/20 0837Transcribed: 07/30/20 0837 ULTRASOUND ASCITES CHECK CLINICAL HISTORY: Abdominal ascites. Assess for paracentesis. COMPARISON STUDY: Abdominal CT dated 07/30/2020. FINDINGS: Real-time grayscale sonography of all 4 quadrants of the abdomen is performed to assess for abdominal ascites. There is trace abdominopelvic ascites. This was insufficient for paracentesis attempt. The liver is cirrhotic in morphology. The spleen is enlarged measuring 15.2 cm in length. IMPRESSION: Trace abdominal ascites which was insufficient for paracentesis attempt. Electronically signed by: Fortunato Morris M.D. 07/31/2020 11:31 AM Dictated: 07/31/20 1130Transcribed: 07/31/20 1130 ULTRASOUND ASCITES CHECK CLINICAL HISTORY: Abdominal ascites. Assess for paracentesis. COMPARISON STUDY: Abdominal CT dated 07/30/2020. FINDINGS: Real-time grayscale sonography of all 4 quadrants of the abdomen is performed to assess for abdominal ascites. There is trace abdominopelvic ascites. This was insufficient for paracentesis attempt. The liver is cirrhotic in morphology. The spleen is enlarged measuring 15.2 cm in length. IMPRESSION: Trace abdominal ascites which was insufficient for paracentesis attempt. Electronically signed by: Fortunato Morris M.D. 07/31/2020 11:31 AM Dictated: 07/31/20 1130Transcribed: 07/31/20 1130 KUB CLINICAL HISTORY: Abdominal distention. FINDINGS: 2 AP supine abdominal radiographs are correlated with abdominal CT dated 07/30/2020. There is a nonobstructed abdominal bowel gas pattern. Residual enteric contrast is present in the colon, greatest in the rectosigmoid. There is no significant fecal retention. No evidence of intraperitoneal free air is seen on these supine views. Cholecystectomy clips are noted in the right upper quadrant. The spleen is enlarged. The skeletal structures are osteopenic and appear intact. Parenchyma calcifications are noted at both lung bases. IMPRESSION: Nonobstructed abdominal bowel gas pattern. Electronically signed by: Fortunato Morris M.D. 08/01/2020 3:15 PM Dictated: 08/01/20 1513Transcribed: 08/01/20 1513 XR chest 2V PA/lateral HISTORY: cough; coarse lung sounds COMPARISON: Chest 07/30/2020. FINDINGS: Diffuse interstitial thickening, unchanged. Left axillary vascular stent is noted. No pneumothorax. Prior cholecystectomy. The heart remains mildly enlarged. Bibasilar airspace opacities persist. Focal density within the right middle lobe may represent chronic atelectasis/collapse. This remains unchanged. There are suture material within the left lung base and surgical clips within the left breast. Old, healed right-sided rib fractures. IMPRESSION: 1. No significant change. 2. Bibasilar interstitial thickening and focal right middle lobe masslike airspace opacity persist. ACT 112: Negative or not required by law. Electronically signed by: Chucho Umana M.D. 08/03/2020 11:27 AM Dictated: 08/03/204Transcribed: 08/03/204 PARACENTESIS UNDER ULTRASOUND GUIDANCE CLINICAL HISTORY: Abdominal ascites. COMPARISON STUDY: Abdominal CT dated 07/30/2020. PROCEDURE: The risks, benefits, and alternatives to the procedure were discussed with the patient who voiced understanding. Written informed consent was obtained. Following real-time ultrasound localization of a suitable pocket of fluid in the right lower quadrant, the lower abdomen was prepped and draped in the usual sterile fashion. The skin and soft tissues were anesthetized with 1% lidocaine. The sheathed paracentesis needle was inserted and approximately 1.4 liters of straw-colored ascitic fluid was removed by vacuum suction. A sample was sent for laboratory analysis. The procedure was well tolerated and without immediate complication. The patient left the department in satisfactory condition. IMPRESSION: Successful ultrasound-guided paracentesis with removal of approximately 1.4 liters of ascitic fluid. ACT 112: Negative or not required by law. Electronically signed by: Fortunato Morris M.D. 08/06/2020 10:06 AM Dictated: 08/06/20 1003Transcribed: 08/06/20 100 ULTRASOUND ASCITES CHECK CLINICAL HISTORY: Abdominal ascites. Assess for paracentesis. COMPARISON STUDY: Abdominal CT dated 07/30/2020. FINDINGS: Real-time grayscale sonography of all 4 quadrants of the abdomen is performed to assess for abdominal ascites. There is trace abdominopelvic ascites. This was insufficient for paracentesis. Cirrhotic liver morphology is incidentally noted. IMPRESSION: Trace abdominopelvic ascites was insufficient for paracentesis. Electronically signed by: Fortunato Morris M.D. 08/10/2020 10:13 AM Dictated: 08/10/20 1012Transcribed: 08/10/20 1012 Hospital Course (1) COPD exacerbation: resolved respiratory status at baseline COVID 19 negative Nausea/Vomiting/Diarrhea Diarrhea improved after addition of Colestid - CT abd/pelvis showed interval development of duodenal wall thickening and wall thickening and associated mesenteric infiltration associated with multiple jejunal loops. Mild colonic wall thickening with submucosal fat deposition. Interval increase in ascites S/P laparoscopically cholecystectomy 06/18/2020 S/P EGD, ERCP revealing gastric polyps status post resection 06/15/2020 Gastro consult appreciated -no plan for repeat EGD this admission Nausea improved with Emend ID recommended to check stools for oval and parasites - pending script for PO Emend sent to [facility] [place], but too expensive since it will cost $1800 dollars Follow up with Gastro Dr. Paulson on 08/17 @ 8:30 AM for endoscopy ESRD Nephrology on board Continue HD on Thursday//Sat Next HD tomorrow Stable Non-small cell lung cancer (NSCLC): s/p Radiation tx Severe protein-calorie malnutrition due to poor PO intake intractable N/V -tolerating diet now nutrition consulted Liver cirrhosis Ascites : s/p Paracenthesis almost 1.4 L ascitic fluid drainage , s/p paracenthesis with ascitic fluid WBC 303 peritoneal fluid cx showed no growth GI eval appreciated : pt received Iv Albumin Received rocephin for 4 days [facility] ID consulted recommended to discontinue the abx with Rocephin since peritoneal fluid suggest no infection Stable Thrombocytopenia Due to Cirrhosis No sign of bleeding Continue monitor CBC History of CAD, nonischemic cardiomyopathy Denies any chest pain Continue metoprolol, simvastatin Hypertension BP stable continue hydralazine 3 times daily and metoprolol DVT prophylaxis SCDs due to Thrombocytopenia CODE STATUS Full code Disposition : Will discharge home today Follow up with your primary care Dr. Barnes on 08/15 @ 11:20 AM Total Time Total Time Spent Total Time Spent (In Minutes): 35 minutes Total Time Includes: Examination of the Patient, Discharge Planning, Medication Reconciliation, Communication With Other Providers and Other Discharge Plan Discharge Items Patient Disposition: Home - Self-Care Reason For Visit: HTN URGENCY,ASP PNEUMONIA Discharge Diagnosis: INTRACTABLE NAUSEA /VOMITING LIVER CIRRHOSIS SBP ( SPONTANEOUS BACTERIAL PERITONITIS ) END STAGE KIDNEY DISEASE ON DIALYSIS ACUTE ON CHRONIC RESPIRATORY FAILURE WITH HYPOXIA -COPD EXACERBATION /RESOLVED CHRONIC THROMBOCYTOPENIA Condition on Discharge: Fair Activity: Resume your previous activity Non-emergency contact: Primary Care Provider Call non-emergency contact if: you have any medication questions Follow-up/Referrals: Yari Monsivais CRNP [Nurse Practitioner] - César Barnes MD [Primary Care Provider] - (Date & Time 08/15/2020 11:20 AM Provider César Barnes MD [facility] ) Diet: Dialysis Renal Addtl Attending Provider Instructions: Follow up with your primary care provider Dr. Barnes on 08/15 @ 11:20 AM Follow up with Gastroenterology Dr. Paulson on 08/17 @ 8:30 AM for endoscopy Next dialysis schedule for tomorrow Seek medical attention if your symptoms worsening Continue oxygen supplement Continue with low residue meal Follow up stool for ova and parasite Pending Studies at Discharge: Yes Studies:: Stool for ova and parasite Stand-Alone Forms: [facility] [place], Smoking Cessation Medications and DC Order Prescriptions: New colestipol [Colestid] 1 gram Tablet 1 g PO BID@1000,2200 Qty: 30 RF: 0 Continued metoprolol succinate 25 mg Tablet Extended Release 24 Hr 25 mg PO QAM RF: 0 trimethobenzamide 300 mg Capsule 300 mg PO Q6H PRN (Reason: Nausea) RF: 0 sennosides [Senokot] 8.6 mg tablet 8.6 mg PO HS Qty: 30 RF: 0 ondansetron HCl [Zofran] 4 mg tablet 4 mg PO Q6H PRN (Reason: nausea and vomiting) Qty: 6 RF: 0 docusate sodium [Colace] 100 mg capsule 200 mg PO BID RF: 0 metoclopramide HCl 10 mg tablet 10 mg PO TID PRN (Reason: Nausea) RF: 0 albuterol sulfate 2.5 mg /3 mL (0.083 %) Solution For Nebulization 2.5 mg INHALATION DIRECTED PRN (Reason: Shortness Of Breath Or Wheezing) RF: 0 hydralazine 25 mg Tablet 25 mg PO TID RF: 0 calcium acetate(phosphat bind) 667 mg Tablet 667 mg PO TIDM RF: 0 levothyroxine 75 mcg Tablet 75 mcg PO QAM RF: 0 simvastatin 20 mg Tablet 20 mg PO HS RF: 0 amlodipine 10 mg Tablet 10 mg PO QAM RF: 0 pantoprazole 40 mg Tablet,Delayed Release (Dr/Ec) 40 mg PO QAM RF: 0 No Action aprepitant [Emend] 80 mg capsule 80 mg PO DAILY PRN (Reason: n/v) RF: 0 Discharge Orders: Discharge Order (Routine); Ordered 08/10/20 Ordered By: Ronaldo Parker/Other Patient Handouts: Aprepitant capsules Admission Data Admit Date/Time: 07/30/20 06:29 Attending Provider: Ronaldo Borjas Admit Provider: Ronaldo Borjas Primary Care Provider: César Barnes Other Providers: Ronaldo Borjas ; Darell Cuello ; Yari Monsivais ; Kamryn Avila ; Kamilah Chew ; Mora Rm ; Simba Shoemaker ; Gisell Paulson ; Cornell Hayes ; Denny Santillan ; Felipe Landin ; Paulina Florez ; Savannah Klein ; Annita Joshua ; Agustina Davis ; Obie Hoyt ; Priscilla Blood ; Sascha Marr ; Ellyn Corrigan ; Savanna Eugene ; Juan C Contreras ; Lisa Collins ; Efrain Thomas ; Patricia Pastor ; Clem Medellin I. ; Emre Angulo II ; Brianna Ross ; Donato Tan ; Karin Jewell Other Interventions: Discharge Summary Assessment (RN) Last Done: 08/10/20 13:59
--- NOTE | 2020-08-27 06:49 | Coding Query ---
To promote full compliance with coding requirements relating to patient care, provider participation is requested in all cases of export packer uncertainty. Please assist us with the question(s) below: Coding Question(s): The diagnosis below was documented in the H/P, progress notes and then subsequently fell off all further documentation. Please indicate if it is still a possible diagnosis or ruled out. Physician's Response(s): ASPIRATION PNEUMONIA ( ) Diagnosed and POA ( ) Diagnosed and not POA ( ) Ruled out ( x ) Other (please specify) Possible aspiration Pneumonia on presentation MTDD
== END 2020-08-10 15:44 | disposition home or self-care (01) | DRG 371 ==
LOC: ED 04:21 → 2N 06:29 → SUATTDRO 06:29 → 2N 10:56 → 3W 08-07 17:32

== ENCOUNTER 2021-02-12 04:39 | Inpatient (IN) ==
--- NOTE | 2021-02-12 04:54 | Emergency Department Note ---
History of Present Illness General Chief complaint: Respiratory Distress Stated complaint: RESPIRATORY DISTRESS Time Seen by Provider: 02/12/21 04:44 History of Present Illness This 61-year-old with COPD who chronically wears oxygen presents to the ER complaining of severe shortness of breath Location: Chest Quality: Hard to breathe Severity: Severe Duration: Past few days Timing: Started few days ago Context: Symptoms got worse and patient came in Modifying factors: better with CPAP; worse with activity Patient gets dialysis Thursday. She is due this morning. Patient denies chest pain, fevers, abdominal pain, flulike illness. She has not received the Covid vaccine. Home Medications Medication Instructions Recorded Confirmed Type albuterol sulfate 2.5 mg INHALATION DIRECTED PRN 11/02/18 09/26/20 History calcium acetate(phosphat bind) 667 mg PO TIDM 11/02/18 09/26/20 History hydralazine 25 mg PO TID 11/02/18 09/26/20 History levothyroxine 75 mcg PO QAM 11/02/18 09/26/20 History simvastatin 20 mg PO HS 11/02/18 09/26/20 History amlodipine 10 mg PO QAM 07/14/19 09/26/20 History pantoprazole 40 mg PO QAM 07/14/19 09/26/20 History metoprolol succinate 25 mg PO QAM 11/19/19 09/26/20 History trimethobenzamide 300 mg PO Q6H PRN 07/19/20 09/26/20 History ondansetron HCl [Zofran] 4 mg PO Q6H PRN #6 tab 07/23/20 09/26/20 Rx sennosides [Senokot] 8.6 mg PO HS #30 tab 07/23/20 09/26/20 Rx metoclopramide HCl 10 mg PO TID PRN 07/30/20 09/26/20 History colestipol [Colestid] 1 g PO BID@1000,2200 #30 tab 08/10/20 09/26/20 Rx aprepitant [Emend] 80 mg PO DAILY PRN 08/14/20 09/26/20 History Allergies Allergy/AdvReac Type Severity Reaction Status Date / Time atropine Allergy Severe Dyspnea Verified 09/26/20 11:00 linezolid Allergy Severe Thrombocyto Verified 09/26/20 11:00 penia naproxen Allergy Severe Facial Verified 09/26/20 11:00 edema dipyridamole Allergy Intermediate "Bad Verified 09/26/20 11:00 reaction" per records vancomycin Allergy Intermediate Rash/tommy Verified 09/26/20 11:00 syndrome aspirin AdvReac Intermediate Abdominal Verified 09/26/20 11:00 cramping Past Med/Surg History Medical History Anemia of chronic renal failure AV fistula LUE Breast cancer s/p chemo/xrt CAD (coronary artery disease) widely patent coronary anatomy with only minor luminal irregularities suggesting mild CAD per 2013 cardiac cath Cirrhosis per records COPD (chronic obstructive pulmonary disease) Acute exacerbation during recent admission. Hospitalist progress note 08/08 notes "resolved respiratory status at baseline." ESRD (end stage renal disease) dialysis Thursday//Thursday ([place]) GERD (gastroesophageal reflux disease) History of abdominal paracentesis During admission -08/2020 History of recent hospitalization treated inpatient [facility] for peritoneal infection 07/30 - 08/10 Hyperlipidemia Hypertension Hypothyroidism Non-ischemic cardiomyopathy Hx. EF 55-60% on most recent echo 04/2019 Non-small cell lung cancer (NSCLC) dx 04/2019; s/p XRT; RML On home oxygen therapy 2L O2 HS Poor historian unable to recall specifics about her past medical history. alert and oriented x3. Splenomegaly, not elsewhere classified w/ multiple hypodense masses stable on fall 2019 imaging and present since at least 2005 Thrombocytopenia chronic, 2/2 cirrhosis. Surgical History H/O partial thyroidectomy GOITER History of bronchoscopy History of cardiac cath 2013- NO STENTS History of colonoscopy History of esophagogastroduodenoscopy (EGD) History of tooth extraction Hx of lumpectomy LEFT S/P arteriovenous (AV) fistula creation S/P laparoscopic cholecystectomy 06/2020 [facility] Family History Other Family history non-contributory No family history of adverse response to anesthesia Social History Smoking Status: Former smoker Tobacco Type: Cigarettes Second Hand Exposure: Yes (hx); Hx Alcohol Use: No Hx Substance Use: No Preferred Language: Kiswahili Communication Ability: Effective Electronic Tester Required: No Beliefs That Will Affect Care: None marital status: Current Living Situation: Spouse current occupational status: disabled Feels Safe at Home: Yes Assistive Devices: Oxygen - at Night Review of Systems A total of 10 systems reviewed and were otherwise negative Physical Exam Vital Signs Vital Signs - 24 hr 02/12/21 04:30 02/12/21 04:45 02/12/21 04:49 Temperature Temperature Source Pulse Rate 98 H 100 H 103 H Pulse Rate [Apical] Pulse Rate from SpO2 Sensor 102 H Respiratory Rate 33 H 38 H 36 H Respiratory Effort / Characteristics Spontaneous Short of Breath Spontaneous Accessory Muscle Use Grunting Labored Moaning Short of Breath Respiratory Depth Normal Deep Respiratory Pattern Tachypnea Blood Pressure 154/72 H 154/72 H Blood Pressure Mean 99 99 Blood Pressure Position Sitting Pulse Oximetry 100 100 100 Oxygen Delivery Method BiPAP BiPAP Fraction of Inspired Oxygen 30 Sepsis Recent Fever Within 48 Hours No Sepsis New/Unexplained Change in Mental Status No Sepsis Action Taken by Nursing No Action Required 02/12/21 04:51 02/12/21 04:53 02/12/21 04:56 Temperature 36.7 C Temperature Source Oral Pulse Rate Pulse Rate [Apical] Pulse Rate from SpO2 Sensor Respiratory Rate Respiratory Effort / Characteristics Spontaneous Accessory Muscle Use Grunting Labored Moaning Short of Breath Respiratory Depth Respiratory Pattern Blood Pressure Blood Pressure Mean Blood Pressure Position Pulse Oximetry 100 Oxygen Delivery Method BiPAP Fraction of Inspired Oxygen Sepsis Recent Fever Within 48 Hours Sepsis New/Unexplained Change in Mental Status Sepsis Action Taken by Nursing 02/12/21 05:01 02/12/21 05:19 02/12/21 05:59 Temperature Temperature Source Pulse Rate 99 H 96 H Pulse Rate [Apical] 97 H Pulse Rate from SpO2 Sensor 99 H 95 H Respiratory Rate 36 H 33 H 37 H Respiratory Effort / Characteristics Spontaneous Respiratory Depth Respiratory Pattern Blood Pressure 170/131 H 162/55 H Blood Pressure Mean 144 90 Blood Pressure Position Pulse Oximetry 100 100 100 Oxygen Delivery Method BiPAP BiPAP BiPAP Fraction of Inspired Oxygen Sepsis Recent Fever Within 48 Hours Sepsis New/Unexplained Change in Mental Status Sepsis Action Taken by Nursing 02/12/21 06:00 02/12/21 06:30 Temperature Temperature Source Pulse Rate 97 H 98 H Pulse Rate [Apical] Pulse Rate from SpO2 Sensor 97 H 98 H Respiratory Rate 36 H 22 Respiratory Effort / Characteristics Respiratory Depth Respiratory Pattern Blood Pressure 155/72 H 162/71 H Blood Pressure Mean 99 101 Blood Pressure Position Pulse Oximetry 100 100 Oxygen Delivery Method BiPAP BiPAP Fraction of Inspired Oxygen Sepsis Recent Fever Within 48 Hours Sepsis New/Unexplained Change in Mental Status Sepsis Action Taken by Nursing VITALS: Vitals are noted on the nurse's note and reviewed by myself. Vital signs reviewed. GENERAL: Elderly female struggling to breathe on CPAP since getting switched over to BiPAP in acute distress. SKIN: The skin was without rashes, erythema, edema, or bruising. There is no tenting of the skin. Capillary reflex less than 2 seconds. HEAD: Normocephalic atraumatic. EARS: External auditory canals clear, tympanic membranes pearly aguilar without erythema or effusion bilaterally. EYES: Pupils equal round and reactive to light and accommodation. Conjunctivae without injection, sclerae without icterus. Extraocular movements intact. NOSE: Patent, turbinates without inflammation or discharge. MOUTH: Mucous membranes mildly dry. Pharynx without erythema or exudate. Uvula midline. Airway patent. Tongue does not deviate. NECK: Supple without nuchal rigidity. No lymphadenopathy. No thyromegaly. Cervical spine is nontender. No JVD. HEART: Regular rate and rhythm LUNGS: Diffuse inspiratory and end expiratory bibasilar rales + retractions o+ accessory muscle use. ABDOMEN: Positive bowel sounds x 4. Normal tympanic percussion. Soft, nontender, without masses or organomegaly. Vera sign negative. No guarding or rebound tenderness. No CVA tenderness MUSCULOSKELETAL: No muscle atrophy, erythema, or edema noted. NEURO: Patient was alert and oriented to person place and time. Normal sensation to light and sharp touch. No focal neurological deficits. Course Administered Medications Doxycycline Hyclate 100 mg/ (Dextrose) 110 mls @ 50 mls/hr IV NOW STA Stop: 02/12/21 08:05 Last Admin: 02/12/21 06:20 Dose: 50 mls/hr Documented by: [id number] Discontinued Medications Dextrose (Dextrose 50% 50 Ml Syringe) 50 ml IV NOW STA Stop: 02/12/21 05:36 Last Admin: 02/12/21 05:50 Dose: 50 ml Documented by: [id number] Piperacillin Sod/Tazobactam Sod (Zosyn) 4.5 gm in 120 mls @ 240 mls/hr IV NOW ONE Stop: 02/12/21 05:25 Last Infusion: 02/12/21 06:23 Dose: 0 mls/hr Documented by: [id number] Admin: 02/12/21 05:16 Dose: 240 mls/hr Documented by: [id number] Dexamethasone 6 mg/ Syringe 1.5 mls @ 1 mls/min IV ONE ONE Stop: 02/12/21 05:16 Last Admin: 02/12/21 05:34 Dose: 1 mls/min Documented by: [id number] Calcium Gluconate 1,000 mg/ (Sodium Chloride) 60 mls @ 240 mls/hr IV NOW STA Stop: 02/12/21 05:49 Last Infusion: 02/12/21 06:45 Dose: 0 mls/hr Documented by: [id number] Admin: 02/12/21 06:20 Dose: 240 mls/hr Documented by: [id number] Insulin Human Regular 10 units (/ Syringe) 9.9 mls @ 3 mls/sec IV ONE STA Stop: 02/12/21 05:36 Last Admin: 02/12/21 05:49 Dose: 3 mls/sec Documented by: [id number] Cosigned by: [id number] Calcium Gluconate 1,000 mg/ (Sodium Chloride) 60 mls @ 240 mls/hr IV NOW STA Stop: 02/12/21 05:51 Last Admin: 02/12/21 06:13 Dose: Not Given Documented by: [id number] Insulin Human Regular (Novolin-R Insulin Per Unit Charge) Confirm Administered Dose 10 units .ROUTE .STK-MED ONE Stop: 02/12/21 05:45 Last Admin: 02/12/21 05:51 Dose: Not Given Documented by: [id number] Insulin Human Regular (Novolin-R Insulin Per Unit Charge) Confirm Administered Dose 1 units .ROUTE .STK-MED ONE Stop: 02/12/21 05:46 Last Admin: 02/12/21 05:51 Dose: Not Given Documented by: [id number] Insulin Human Regular (Novolin-R Insulin Per Unit Charge) Confirm Administered Dose 1 units .ROUTE .STK-MED ONE Stop: 02/12/21 05:48 Last Admin: 02/12/21 05:51 Dose: Not Given Documented by: [id number] Ipratropium [place] (Ipratropium [place] Neb Soln 0.02% 2.5 Ml Vial) 0.5 mg INH NOW STA Stop: 02/12/21 05:10 Last Admin: 02/12/21 05:26 Dose: 0.5 mg Documented by: [id number] Levalbuterol HCl (Levalbuterol 1.25mg/0.5ml Neb) 1.25 mg INH NOW STA Stop: 02/12/21 05:10 Last Admin: 02/12/21 05:26 Dose: 1.25 mg Documented by: [id number] Nitroglycerin (Nitroglycerin 2% Ointment 30gm Tube) 1 inch EXT NOW ONE Stop: 02/12/21 04:56 Last Admin: 02/12/21 05:15 Dose: 0.5 inch Documented by: [id number] Ondansetron HCl (Ondansetron Inj 2 Mg/Ml 2 Ml Vial) 4 mg IV NOW STA Stop: 02/12/21 05:37 Last Admin: 02/12/21 05:50 Dose: 4 mg Documented by: [id number] Medical Decision Making Medical Records Attestation: I reviewed the patient's medical records. Home Medications Current Medication List: was personally reviewed by me Laboratory Data Attestation: I reviewed the patient's lab results. Result diagrams: 02/12/21 04:44 02/12/21 04:44 Lab Results 02/12/21 02/12/21 02/12/21 Range/Units 04:44 04:44 04:44 WBC 14.18 H (4.8-10.8) K/uL RBC 3.63 L (4.2-5.4) M/uL Hgb 9.1 L (12.0-16.0) g/dL Hct 31.0 L (37-47) % MCV 85.4 (80-100) fL MCH 25.1 (25-34) pg MCHC 29.4 L (32-36) g/dL RDW Std Deviation 60.3 H (36.4-46.3) fL RDW Coeff of Dave 19.2 H (11.5-14.5) % Plt Count 165 (130-400) K/uL MPV 9.5 (7.4-10.4) fL Immature Gran % (Auto) 0.4 % Neut % (Auto) 91.0 % Lymph % (Auto) 2.5 % Harper % (Auto) 4.9 % Eos % (Auto) 1.1 % Baso % (Auto) 0.1 % Neut # (Auto) 12.91 H (1.4-6.5) K/uL Lymph # (Auto) 0.36 L (1.2-3.4) K/uL Harper # (Auto) 0.69 H (0.11-0.59) K/uL Eos # (Auto) 0.15 (0-0.5) K/uL Baso # (Auto) 0.02 (0-0.2) K/uL Immature Gran # (Auto) 0.05 H (0.00-0.02) K/uL APTT (21.0-31.0) Seconds PTT Ratio Sodium 136 (136-145) mmol/L Potassium 6.7 H* (3.5-5.1) mmol/L Chloride 102 (98-107) mmol/L Carbon Dioxide 26 (21-32) mmol/L Anion Gap 8.0 (3-11) BUN 48 H (7-18) mg/dl Creatinine 7.53 H* (0.6-1.2) mg/dl Est Cr Clr Drug Dosing 5.5 ml/min Est GFR ( Amer) 6.1 ml/min Est GFR (Non-Af Amer) 5.3 ml/min BUN/Creatinine Ratio 6.4 L (10-20) Glucose 102 H (70-99) mg/dl Lactate (0.4-2.0) mmol/L Calcium 8.7 (8.5-10.1) mg/dl Magnesium 2.4 (1.8-2.4) mg/dl Total Bilirubin 0.7 (0.2-1) mg/dl AST 17 (15-37) U/L ALT 8 L (12-78) U/L Alkaline Phosphatase 179 H (45-117) U/L Troponin I < 0.015 (0-0.045) ng/ml NT-Pro-B Natriuret Pep 40970 H (0-900) pg/ml Total Protein 6.9 (6.4-8.2) gm/dl Albumin 2.5 L (3.4-5.0) gm/dl Globulin 4.4 H (2.5-4.0) gm/dl Albumin/Globulin Ratio 0.6 L (0.9-2) Lipase 159 (73-393) U/L Procalcitonin (0-0.5) ng/ml COVID-19 Eval Order Covid19 at [facility] SARS-CoV-2 (PCR) (Negative) 02/12/21 02/12/21 02/12/21 Range/Units 04:44 04:44 04:44 WBC (4.8-10.8) K/uL RBC (4.2-5.4) M/uL Hgb (12.0-16.0) g/dL Hct (37-47) % MCV (80-100) fL MCH (25-34) pg MCHC (32-36) g/dL RDW Std Deviation (36.4-46.3) fL RDW Coeff of Dave (11.5-14.5) % Plt Count (130-400) K/uL MPV (7.4-10.4) fL Immature Gran % (Auto) % Neut % (Auto) % Lymph % (Auto) % Harper % (Auto) % Eos % (Auto) % Baso % (Auto) % Neut # (Auto) (1.4-6.5) K/uL Lymph # (Auto) (1.2-3.4) K/uL Harper # (Auto) (0.11-0.59) K/uL Eos # (Auto) (0-0.5) K/uL Baso # (Auto) (0-0.2) K/uL Immature Gran # (Auto) (0.00-0.02) K/uL APTT 27.8 (21.0-31.0) Seconds PTT Ratio 1.1 Sodium (136-145) mmol/L Potassium (3.5-5.1) mmol/L Chloride (98-107) mmol/L Carbon Dioxide (21-32) mmol/L Anion Gap (3-11) BUN (7-18) mg/dl Creatinine (0.6-1.2) mg/dl Est Cr Clr Drug Dosing ml/min Est GFR ( Amer) ml/min Est GFR (Non-Af Amer) ml/min BUN/Creatinine Ratio (10-20) Glucose (70-99) mg/dl Lactate (0.4-2.0) mmol/L Calcium (8.5-10.1) mg/dl Magnesium (1.8-2.4) mg/dl Total Bilirubin (0.2-1) mg/dl AST (15-37) U/L ALT (12-78) U/L Alkaline Phosphatase (45-117) U/L Troponin I (0-0.045) ng/ml NT-Pro-B Natriuret Pep (0-900) pg/ml Total Protein (6.4-8.2) gm/dl Albumin (3.4-5.0) gm/dl Globulin (2.5-4.0) gm/dl Albumin/Globulin Ratio (0.9-2) Lipase (73-393) U/L Procalcitonin 3.22 H (0-0.5) ng/ml COVID-19 Eval Order SARS-CoV-2 (PCR) NEGATIVE (Negative) 02/12/21 Range/Units 05:29 WBC (4.8-10.8) K/uL RBC (4.2-5.4) M/uL Hgb (12.0-16.0) g/dL Hct (37-47) % MCV (80-100) fL MCH (25-34) pg MCHC (32-36) g/dL RDW Std Deviation (36.4-46.3) fL RDW Coeff of Dave (11.5-14.5) % Plt Count (130-400) K/uL MPV (7.4-10.4) fL Immature Gran % (Auto) % Neut % (Auto) % Lymph % (Auto) % Harper % (Auto) % Eos % (Auto) % Baso % (Auto) % Neut # (Auto) (1.4-6.5) K/uL Lymph # (Auto) (1.2-3.4) K/uL Harper # (Auto) (0.11-0.59) K/uL Eos # (Auto) (0-0.5) K/uL Baso # (Auto) (0-0.2) K/uL Immature Gran # (Auto) (0.00-0.02) K/uL APTT (21.0-31.0) Seconds PTT Ratio Sodium (136-145) mmol/L Potassium (3.5-5.1) mmol/L Chloride (98-107) mmol/L Carbon Dioxide (21-32) mmol/L Anion Gap (3-11) BUN (7-18) mg/dl Creatinine (0.6-1.2) mg/dl Est Cr Clr Drug Dosing ml/min Est GFR ( Amer) ml/min Est GFR (Non-Af Amer) ml/min BUN/Creatinine Ratio (10-20) Glucose (70-99) mg/dl Lactate 1.3 (0.4-2.0) mmol/L Calcium (8.5-10.1) mg/dl Magnesium (1.8-2.4) mg/dl Total Bilirubin (0.2-1) mg/dl AST (15-37) U/L ALT (12-78) U/L Alkaline Phosphatase (45-117) U/L Troponin I (0-0.045) ng/ml NT-Pro-B Natriuret Pep (0-900) pg/ml Total Protein (6.4-8.2) gm/dl Albumin (3.4-5.0) gm/dl Globulin (2.5-4.0) gm/dl Albumin/Globulin Ratio (0.9-2) Lipase (73-393) U/L Procalcitonin (0-0.5) ng/ml COVID-19 Eval Order SARS-CoV-2 (PCR) (Negative) Imaging Data Attestation: I personally reviewed and interpreted this imaging study as follows: Radiologist's Impression: Chest X-Ray 02/12/21 04:45 XR chest 1V portable HISTORY: 61 years-old Female Dyspnea acute shortness of breath COMPARISON: Chest radiograph 6 08/03/2020, CT abdomen and pelvis 07/30/2020. TECHNIQUE: Portable AP view of the chest FINDINGS: Cardiac silhouette is enlarged. Extensive bilateral interstitial opacities are new/progressed from comparison. Blunting of the costophrenic angles suggestive of trace pleural effusions. Masslike consolidation of the right middle lobe redemonstrated. Pulmonary vascular congestion. No pneumothorax. Vascular stent grafts of the left upper extremity with left breast surgical clips. Calcified plaque the thoracic aorta. Degenerative changes of the shoulders and spine. IMPRESSION: 1. Cardiomegaly with bilateral interstitial opacities suggestive of pulmonary edema. Interstitial pneumonitis could appear similarly. 2. Chronic masslike consolidation of the right middle lobe redemonstrated, p reviously demonstrating imaging characteristics suggestive of chronic aspiration. 3. Probable trace pleural effusions. ACT 112: Negative or not required by law. The above report was generated using voice recognition software. It may contain grammatical, syntax or spelling errors. Electronically signed by: Jesse Plunkett M.D. 02/12/2021 6:47 AM [facility] Narrative Prior records/ancillary studies reviewed. Triage Nursing notes reviewed. Additional history obtained from EMS The patient's history was concerning for respiratory difficulties. Differential diagnosis: Etiologies such as infections, reactive airway disease, pneumonia, pneumothorax, COPD, CHF, cardiac ischemia, pulmonary embolism, musculoskeletal, gastrointestinal, as well as others were entertained. Physical examination: As above. ER treatment provided: An order was placed for continuous cardiac monitoring. The monitor shows a rate of 60-1 10 with a sinus rhythm. BiPAP, patient refuses Nitropaste. Patient was given dextrose with insulin calcium and was already given multiple nebs by EMS On reassessment the patient felt better. Diagnostic interpretation by me: The electrocardiogram was ordered for dyspnea EKG: Poor baseline, normal sinus, no acute ST-T wave changes, rate of 1-3. Impression sinus tachycardia interpreted by self I think arrhythmia is unlikely. EKG shows normal sinus rhythm with no interval abnormalities such as QT prolongation or WPW. There are no findings to suggest Brugada syndrome. Cardiac monitoring in the emergency department reveals no tachycardic or bradycardic dysrhythmia. Hypertrophic cardiomyopathy was considered but there are no clear historical elements pointing toward this. EKG is not suggestive. The QRS voltage is not extremely large and there are no suggestive Q waves. The labs revealed elevated creatinine and potassium. Patient is due for dialysis this morning ABG reviewed dialyzed. Imaging studies: Chest x-ray pulmonary congestion and increase consolidation to the right mid lobe CT pending at change of shift and patient is admitted to medicine Consultation: A consultation was placed with the hospitalist. The case was discussed and diagnostics were reviewed. The patient was evaluated in the ER for further johann tment. I spoke with [facility] nephrology and recommends treating the hyperkalemia and placed in consult and he states they will dialyze this morning. I made Dr. Hill aware of this. This appears to be consistent with acute respiratory failure with fluid overload who needs dialyzed with hyperkalemia. I spoke to nephrology who will dialyze in the morning. Patient was started on calcium and insulin and dextrose. Patient was given multiple nebs by EMS. Patient was placed on BiPAP. She sta rted on antibiotics for possible pneumonia. Medicine was consulted. She will be evaluated for admission. By the evaluation outlined above emergent etiologies such as cardiac ischemia, pulmonary embolism, reactive airway disease, pneumothorax, musculoskeletal, as well as others were deemed re latively unlikely. The pt informed about the findings as listed above. All questions were answered and pleased with the treatment. The chart was completed utilizing [employer] Speech voice recognition software. Grammatical errors, random word insertions, pronoun errors, and incomplete sentences are an occassional consequence of this system due to software limitations, ambient noise, and hardware issues. Any formal questions or concerns about the content, text, or information contained within the body of this dictation should be directly addressed to the physician autopsy assistant for clarification. Impression & Plan Acute exacerbation of chronic obstructive airways disease, CHF (congestive heart failure), Acute respiratory failure, ESRD (end stage renal disease) on dialysis, Hyperkalemia Discharge Plan Visit Data Chief Complaint: Respiratory Distress Stated Complaint: RESPIRATORY DISTRESS ED Provider: Kem Alcantara ED Midlevel Provider: Ceci Morrissey Discharge Problem: Acute exacerbation of chronic obstructive airways disease, CHF (congestive heart failure), Acute respiratory failure, ESRD (end stage renal disease) on dialysis, Hyperkalemia Patient Disposition: Admitted As Inpatient Condition: Fair Discharge Instructions Interventions: ED Discharge Assessment Last Done: 02/12/21 06:57 Forms Stand Alone Forms: Virtual Emergency Department, Important Visit Information Prescriptions Prescriptions: No Action metoprolol succinate 25 mg Tablet Extended Release 24 Hr 25 mg PO QAM RF: 0 trimethobenzamide 300 mg Capsule 300 mg PO Q6H PRN (Reason: Nausea) RF: 0 sennosides [Senokot] 8.6 mg tablet 8.6 mg PO HS Qty: 30 RF: 0 ondansetron HCl [Zofran] 4 mg tablet 4 mg PO Q6H PRN (Reason: nausea and vomiting) Qty: 6 RF: 0 metoclopramide HCl 10 mg tablet 10 mg PO TID PRN (Reason: Nausea) RF: 0 colestipol [Colestid] 1 gram Tablet 1 g PO BID@1000,2200 Qty: 30 RF: 0 albuterol sulfate 2.5 mg /3 mL (0.083 %) Solution For Nebulization 2.5 mg INHALATION DIRECTED PRN (Reason: Shortness Of Breath Or Wheezing) RF: 0 hydralazine 25 mg Tablet 25 mg PO TID RF: 0 calcium acetate(phosphat bind) 667 mg Tablet 667 mg PO TIDM RF: 0 levothyroxine 75 mcg Tablet 75 mcg PO QAM RF: 0 simvastatin 20 mg Tablet 20 mg PO HS RF: 0 amlodipine 10 mg Tablet 10 mg PO QAM RF: 0 pantoprazole 40 mg Tablet,Delayed Release (Dr/Ec) 40 mg PO QAM RF: 0 aprepitant [Emend] 80 mg capsule 80 mg PO DAILY PRN (Reason: n/v) RF: 0 Referrals Referrals: PCP,NO [Primary Care Provider] -
[2021-02-12] MEDS ORDERED: NITROGLYCERIN 2% OINTMENT 30GM TUBE EXT ONE (04:55)
[2021-02-12] MEDS ORDERED: PIPERACILL/TAZOBAC CONSULT ACTIVE PRN (04:56)
[2021-02-12] MEDS ORDERED: PIPERACILLIN/TAZOBACTAM 4.5 GM/120 ML BAG IV ONE (04:56)
[2021-02-12] MEDS ORDERED: XOPENEX/ATROVENT 1.25mg/0.5MG NEB COMBO NEB STA (05:02)
[2021-02-12 05:03] LABS: Basophils # (auto) 0.02 K/uL (0-0.2); Basophils % (auto) 0.1 %; Eosinophils # (auto) 0.15 K/uL (0-0.5); Eosinophils % (auto) 1.1 %; Hemoglobin 9.1 g/dL (12.0-16.0); Immature Granulocytes # (auto) 0.05 K/uL (0.00-0.02); Immature Granulocytes % (auto) 0.4 %; Lymphocytes # (auto) 0.36 K/uL (1.2-3.4); Lymphocytes % (auto) 2.5 %; Mean Corpuscular Hemoglobin 25.1 pg (25-34); Mean Corpuscular Hgb Conc 29.4 g/dL (32-36); Mean Corpuscular Volume 85.4 fL (80-100); Mean Platelet Volume 9.5 fL (7.4-10.4); Monocytes # (auto) 0.69 K/uL (0.11-0.59); Monocytes % (auto) 4.9 %; Neutrophils # (auto) 12.91 K/uL (1.4-6.5); Platelet Count 165 K/uL (130-400); RDW Coefficient of Variation 19.2 % (11.5-14.5); RDW Standard Deviation 60.3 fL (36.4-46.3); Red Blood Count 3.63 M/uL (4.2-5.4); White Blood Count 14.18 K/uL (4.8-10.8)
--- NOTE | 2021-02-12 05:03 | Emergency Department Note ---
ED Visit Note I have seen and examined this patient with Ceci Morrissey and generally agree with the treatment plan as discussed. .
[2021-02-12] MEDS ORDERED: IPRATROPIUM BROMIDE NEB SOLN 0.02% 2.5 ML VIAL INH STA (05:09)
[2021-02-12] MEDS ORDERED: LEVALBUTEROL 1.25MG/0.5ML NEB INH STA (05:09)
[2021-02-12] MEDS ORDERED: dexAMETHasone 6 MG in SYRINGE 0 ML IV ONE (05:15)
[2021-02-12 05:32] LABS: Alanine Aminotransferase 8 U/L (12-78); Albumin Globulin Ratio 0.6 (0.9-2); Albumin Level 2.5 gm/dl (3.4-5.0); Alkaline Phosphatase 179 U/L (45-117); Aspartate Aminotransferase 17 U/L (15-37); BUN Creatinine Ratio 6.4 (10-20); Bilirubin,Total 0.7 mg/dl (0.2-1); Blood Urea Nitrogen 48 mg/dl (7-18); Calcium 8.7 mg/dl (8.5-10.1); Carbon Dioxide 26 mmol/L (21-32); Chloride 102 mmol/L (98-107); Creatinine Clr Calc Pharmacy 5.5 ml/min; Est GFR (African American) 6.1 ml/min; Est GFR (Non-African American) 5.3 ml/min; Globulin 4.4 gm/dl (2.5-4.0); Glucose 102 mg/dl (70-99); Magnesium 2.4 mg/dl (1.8-2.4); NT Pro B Type Natriuretic Pept 19712 pg/ml (0-900); Potassium 6.7 mmol/L (3.5-5.1); Sodium 136 mmol/L (136-145); Total Protein 6.9 gm/dl (6.4-8.2); Troponin I < 0.015 ng/ml (0-0.045)
[2021-02-12] MEDS ORDERED: CALCIUM GLUCONATE 10% 1,000 MG in SODIUM CHLORIDE 0.9% 50 ML IV STA ×2 (05:35→05:37)
[2021-02-12] MEDS ORDERED: INSULIN HUMAN REGULAR PER UNIT 10 UNITS in SYRINGE 9.9 ML IV STA (05:35)
[2021-02-12] MEDS ORDERED: DEXTROSE 50% 50 ML SYRINGE IV STA (05:35)
[2021-02-12] MEDS ORDERED: ONDANSETRON INJ 2 MG/ML 2 ML VIAL IV STA (05:36)
[2021-02-12] MEDS ORDERED: NovoLIN-R INSULIN PER UNIT CHARGE ONE ×3 (05:44→05:47)
[2021-02-12 05:49] LABS: Partial Thromboplastin Ratio 1.1; Partial Thromboplastin Time 27.8 Seconds (21.0-31.0)
--- NOTE | 2021-02-12 05:53 | History & Physical Report ---
Date of Service February 12, 2021 Assessment & Plan (1) Acute hypoxemic respiratory failure: Multifactorial : Cardiorenal syndrome, history diastolic dysfunction, ESRD on HD COPD/ILD exacerbation secondary to HCAP, possible aspiration pneumonia (possible sepsis given elevated procalcitonin) Hyperkalemia secondary to ESRD hypertension, elevated secondary to illness Left-sided abdominal pain, etiology to be determined CAD/PVD as per records breast cancer sp surgery NSCLC status post radiation, stable as per recent outpatient [facility] [place] oncology follow-up January 2021 chronic thrombocytopenia secondary to cirrhosis hx gastroparesis hx pulmonary vasculitis as per records Chronic anemia, hemoglobin at baseline Past tobacco abuse ICU BiPAP Nephrology consultation Re: Emergent dialysis (ER provider already in touch with Dr. Marr.) CS, Doxycycline, Zosyn Swallow eval, aspiration precautions Steroid course, nebs RTC CT abdomen pelvis RE left-sided abdominal pain DVT prophylaxis. SCDs RE thrombocytopenia Full code Total critical time was 45 minutes. Text document was generated using [employer] voice recognition software. It may contain grammatical or spelling errors. Kindly contact undersigned for clarification of any documentation item in question. History of Present Illness Chief Complaint: Worsening cough, shortness of breath Primary Care Provider: Dr. Barnes History obtained from patient, family, and records. Medical history significant for chronic respiratory failure secondary to COPD/ ILD on home O2, hypertension, chronic diastolic HF 2 to non-ischemic cardiomyopathy (TTE EF 55-60%, 2019), CAD/PVD as per records, ESRD on hemodialysis, breast cancer sp surgery, non-small cell lung cancer status post radiation, past tobacco abuse, GERD, gastroparesis as per records, hypothyroidism, cirrhosis, chronic anemia (baseline globin 9-10), chronic thrombocytopenia, hx pulmonary vasculitis as per records. Last confinement August 2020 for respiratory failure secondary to COPD exacerbation and SBP. Patient not feeling the last 4 days. Junky cough symptoms, shortness of breath even during Thursday dialysis session. No fluid retention as per patient. Coughing with meals/water intake as per patient. No fever, some chills as per patient. Achy left-sided pain as per patient. Patient did not want to go to the ER right away as per . At the ER, BiPAP initiated for respiratory distress. Zosyn given for pneumonia. Calcium gluconate and IV insulin for hyperkalemia. MEDICAL HISTORY: As above. Hemodialysis Thursday SURGERIES: Mastectomy, thyroidectomy, vascular procedures, back surgery. FAMILY HISTORY: Breast cancer, stroke. PERSONAL AND SOCIAL HISTORY: Past tobacco abuse. No chronic intake of alcohol. Disabled. Allergies Allergy/AdvReac Type Severity Reaction Status Date / Time atropine Allergy Severe Dyspnea Verified 02/12/21 07:07 linezolid Allergy Severe Thrombocyto Verified 02/12/21 07:07 penia naproxen Allergy Severe Facial Verified 02/12/21 07:07 edema dipyridamole Allergy Intermediate "Bad Verified 02/12/21 07:07 reaction" per records vancomycin Allergy Intermediate Rash/tommy Verified 02/12/21 07:07 syndrome maprotiline Allergy Unknown Unknown Unverified 02/12/21 07:07 valacyclovir [From Valtrex] Allergy Unknown Unknown Unverified 02/12/21 07:07 aspirin AdvReac Intermediate Abdominal Verified 02/12/21 07:07 cramping salicylates AdvReac Unknown Unknown Unverified 02/12/21 07:07 Home Medications Medication Instructions Recorded Confirmed Type albuterol sulfate 2.5 mg INHALATION DIRECTED PRN 11/02/18 02/12/21 History calcium acetate(phosphat bind) 667 mg PO TIDM 11/02/18 02/12/21 History hydralazine 25 mg PO TID 11/02/18 02/12/21 History levothyroxine 75 mcg PO DAILYBB 11/02/18 02/12/21 History simvastatin 20 mg PO HS 11/02/18 02/12/21 History amlodipine 10 mg PO QAM 07/14/19 02/12/21 History pantoprazole 40 mg PO QAM 07/14/19 02/12/21 History metoprolol succinate 25 mg PO QAM 11/19/19 02/12/21 History ondansetron HCl [Zofran] 4 mg PO Q6H PRN #6 tab 07/23/20 02/12/21 Rx aprepitant [Emend] 80 mg PO DAILY 08/14/20 02/12/21 History Past Med/Surg History Medical History Anemia of chronic renal failure AV fistula LUE Breast cancer s/p chemo/xrt CAD (coronary artery disease) widely patent coronary anatomy with only minor luminal irregularities suggesting mild CAD per 2014 cardiac cath Cirrhosis per records COPD (chronic obstructive pulmonary disease) Acute exacerbation during recent admission. Hospitalist progress note 08/08 notes "resolved respiratory status at baseline." ESRD (end stage renal disease) dialysis Thursday//Thursday ([place]) GERD (gastroesophageal reflux disease) History of abdominal paracentesis During admission -08/2020 History of recent hospitalization treated inpatient [facility] for peritoneal infection 07/30 - 08/10 Hyperlipidemia Hypertension Hypothyroidism Non-ischemic cardiomyopathy Hx. EF 55-60% on most recent echo 04/2019 Non-small cell lung cancer (NSCLC) dx 04/2019; s/p XRT; RML On home oxygen therapy 2L O2 HS Poor historian unable to recall specifics about her past medical history. alert and oriented x3. Splenomegaly, not elsewhere classified w/ multiple hypodense masses stable on fall 2019 imaging and present since at least 2005 Thrombocytopenia chronic, 2/2 cirrhosis. Surgical History H/O partial thyroidectomy GOITER History of bronchoscopy History of cardiac cath 2013- NO STENTS History of colonoscopy History of esophagogastroduodenoscopy (EGD) History of tooth extraction Hx of lumpectomy LEFT S/P arteriovenous (AV) fistula creation S/P laparoscopic cholecystectomy 06/2020 [facility] Family History Other Family history non-contributory No family history of adverse response to anesthesia Social History Smoking Status: Former smoker Tobacco Type: Cigarettes Smoking End Date: 2009; Second Hand Exposure: No; Tobacco Cessation Education Requested by Patient: No Hx Alcohol Use: No Hx Substance Use: No Preferred Language: Venezuelan Communication Ability: Effective 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 Beliefs That Will Affect Care: None marital status: Current Living Situation: Spouse current occupational status: disabled Other Information That Helps Us Care for You: No Feels Safe at Home: Yes Safety Concerns: Feels Safe At This Time Assistive Devices: Nebulizer and Oxygen - Continuous Review of Systems Review of Systems: As per HPI, all 10 systems reviewed, all other ROS negative Physical Exam Physical Exam: GENERAL: uncomfortable, chronically ill, underweight, respiratory distress SKIN: Pallor , warm HEENT: Pale palpebral conjunctivae, ptosis, dry buccal mucosa, BiPAP in place NECK : Supple, no tenderness CHEST : Bilateral rhonchi, expiratory wheezes , no tenderness HEART : RRR, systolic murmur ABDOMEN: Some distention, nontender EXTREMITIES : No LE swelling/tenderness, no other conspicuous deformities noted NEUROLOGIC : Coherent, no facial asymmetry, no other gross focality Results & Data Results & Data ([facility]) Vital Signs (Past 12 Hours) Vital Signs Temp Pulse Pulse Resp BP Pulse Ox 02/12/21 05:19 97 H 33 H 100 02/12/21 04:56 36.7 C 02/12/21 04:53 100 02/12/21 04:45 100 H 38 H 154/72 H 100 02/12/21 04:30 98 H 33 H 100 Laboratory Results Laboratory Results WBC 14.18 K/uL (4.8-10.8) H 02/12/21 04:44 RBC 3.63 M/uL (4.2-5.4) L 02/12/21 04:44 Hgb 9.1 g/dL (12.0-16.0) L 02/12/21 04:44 Hct 31.0 % (37-47) L 02/12/21 04:44 MCV 85.4 fL (80-100) 02/12/21 04:44 MCH 25.1 pg (25-34) 02/12/21 04:44 MCHC 29.4 g/dL (32-36) L 02/12/21 04:44 RDW Std Deviation 60.3 fL (36.4-46.3) H 02/12/21 04:44 RDW Coeff of Dave 19.2 % (11.5-14.5) H 02/12/21 04:44 Plt Count 165 K/uL (130-400) 02/12/21 04:44 MPV 9.5 fL (7.4-10.4) 02/12/21 04:44 Immature Gran % (Auto) 0.4 % 02/12/21 04:44 Neut % (Auto) 91.0 % 02/12/21 04:44 Lymph % (Auto) 2.5 % 02/12/21 04:44 R[place] % (Auto) 4.9 % 02/12/21 04:44 Eos % (Auto) 1.1 % 02/12/21 04:44 Baso % (Auto) 0.1 % 02/12/21 04:44 Neut # (Auto) 12.91 K/uL (1.4-6.5) H 02/12/21 04:44 Lymph # (Auto) 0.36 K/uL (1.2-3.4) L 02/12/21 04:44 Rusk # (Auto) 0.69 K/uL (0.11-0.59) H 02/12/21 04:44 Eos # (Auto) 0.15 K/uL (0-0.5) 02/12/21 04:44 Baso # (Auto) 0.02 K/uL (0-0.2) 02/12/21 04:44 Immature Gran # (Auto) 0.05 K/uL (0.00-0.02) H 02/12/21 04:44 APTT 27.8 Seconds (21.0-31.0) 02/12/21 04:44 PTT Ratio 1.1 02/12/21 04:44 Sodium 136 mmol/L (136-145) 02/12/21 04:44 Potassium 6.7 mmol/L (3.5-5.1) H* 02/12/21 04:44 Chloride 102 mmol/L (98-107) 02/12/21 04:44 Carbon Dioxide 26 mmol/L (21-32) 02/12/21 04:44 Anion Gap 8.0 (3-11) 02/12/21 04:44 BUN 48 mg/dl (7-18) H 02/12/21 04:44 Creatinine 7.53 mg/dl (0.6-1.2) H* 02/12/21 04:44 Est Cr Clr Drug Dosing 5.5 ml/min 02/12/21 04:44 Est GFR ( Amer) 6.1 ml/min 02/12/21 04:44 Est GFR (Non-Af Amer) 5.3 ml/min 02/12/21 04:44 BUN/Creatinine Ratio 6.4 (10-20) L 02/12/21 04:44 Glucose 102 mg/dl (70-99) H 02/12/21 04:44 Calcium 8.7 mg/dl (8.5-10.1) 02/12/21 04:44 Magnesium 2.4 mg/dl (1.8-2.4) 02/12/21 04:44 Total Bilirubin 0.7 mg/dl (0.2-1) 02/12/21 04:44 AST 17 U/L (15-37) 02/12/21 04:44 ALT 8 U/L (12-78) L 02/12/21 04:44 Alkaline Phosphatase 179 U/L (45-117) H 02/12/21 04:44 Troponin I < 0.015 ng/ml (0-0.045) 02/12/21 04:44 NT-Pro-B Natriuret Pep 34312 pg/ml (0-900) H 02/12/21 04:44 Total Protein 6.9 gm/dl (6.4-8.2) 02/12/21 04:44 Albumin 2.5 gm/dl (3.4-5.0) L 02/12/21 04:44 Globulin 4.4 gm/dl (2.5-4.0) H 02/12/21 04:44 Albumin/Globulin Ratio 0.6 (0.9-2) L 02/12/21 04:44 COVID-19 Eval Order Covid19 at [facility] 02/12/21 04:44 Diagnostic Findings Chest x-ray as per my interpretation cardiomegaly, congestion EKG as per my interpretation : Rate 105, sinus tachycardia, normal axis, LVH, peaked T waves
[2021-02-12] MEDS ORDERED: DOXYCYCLINE HYCLATE 100 MG in DEXTROSE 5% 100 ML IV STA (05:54)
[2021-02-12] MEDS ORDERED: APREPITANT 80 MG CAP PO PRN (06:11)
[2021-02-12 06:24] LABS: Lipase 159 U/L (73-393)
--- NOTE | 2021-02-12 06:48 | XRay Report ---
XR chest 1V portable HISTORY: 61 years-old Female Dyspnea acute shortness of breath COMPARISON: Chest radiograph 6 08/03/2020, CT abdomen and pelvis 07/30/2020. TECHNIQUE: Portable AP view of the chest FINDINGS: Cardiac silhouette is enlarged. Extensive bilateral interstitial opacities are new/progressed from co mparison. Blunting of the costophrenic angles suggestive of trace pleural effusions. Masslike consoli dation of the right middle lobe redemonstrated. Pulmonary vascular congestion. No pneumothorax. Vascu lar stent grafts of the left upper extremity with left breast surgical clips. Calcified plaque the th oracic aorta. Degenerative changes of the shoulders and spine. IMPRESSION: 1. Cardiomegaly with bilateral interstitial opacities suggestive of pulmonary edema. Interstitial pne umonitis could appear similarly. 2. Chronic masslike consolidation of the right middle lobe redemonstrated, previously demonstrating i maging characteristics suggestive of chronic aspiration. 3. Probable trace pleural effusions. ACT 112: Negative or not required by law. The above report was generated using voice recognition software. It may contain grammatical, syntax o r spelling errors. Electronically signed by: Jesse Plunkett M.D. 02/12/2021 6:47 AM
--- NOTE | 2021-02-12 07:32 | CT Scan Report ---
CT SCAN OF THE ABDOMEN AND PELVIS WITHOUT CONTRAST CLINICAL HISTORY: Left-sided abdominal pain COMPARISON STUDY: 07/30/2020 TECHNIQUE: CT scan of the abdomen and pelvis was performed from the lung bases to the proximal femurs . Images are reviewed in the axial, sagittal, and coronal planes. IV contrast was not administered fo r this examination. A dose lowering technique was utilized adhering to the principles of ALARA. CT DOSE: FINDINGS: Lower chest: There is a persistent consolidated hyperdense right middle lobe. There is equivocal slig ht interval increase in the size of a spiculated 34 mm right lower lobe lesion. There are small bilat eral pleural effusions. There is interlobular septal edema. There are left-sided pleural calcificatio ns. There is dependent hyperdense atelectasis. Liver: The liver has a cirrhotic morphology. No masses are visualized on this noncontrast study. Gallbladder: Surgically absent Spleen: The spleen is enlarged. There are persistent innumerable splenic hypodense lesions. The splee n measures 16 cm in length. Pancreas: Unremarkable. Adrenal glands: Unremarkable. Kidneys: There is marked bilateral renal atrophy. Bowel: There are no transition zones to indicate bowel obstruction. There is no evidence of acute div erticulitis. There is colonic submucosal fat hypertrophy. The appendix appears normal. Peritoneum: There is no intraperitoneal free air or abdominal ascites. There is a tiny fat-containing umbilical hernia Vasculature: There is no evidence of abdominal aortic aneurysm. There are aortoiliac atheromatous jonathon nges. Adenopathy: None. Pelvic viscera: The bladder, and pelvic viscera are unremarkable. Skeletal structures: No destructive lesions are visualized. Sclerotic iliac bone lesions likely repre sent bone islands. IMPRESSION: 1. No evidence of bowel obstruction. No evidence of free air 2. Severe bilateral renal atrophy 3. Progressive moderate splenomegaly. Subtle hypodense splenic lesions persist 4. Suspected hepatic cirrhosis 5. Normal appendix. No evidence of acute diverticulitis 6. No evidence of bowel obstruction. No evidence of free air 7. Mild submucosal fat hypertrophy within the colon. This is nonspecific finding which could represen t the sequela of chronic inflammatory bowel disease. 8. Small bilateral pleural effusions with hyperdense lower lobe atelectatic change. Left-sided pleura l calcification. Chronic hyperdense consolidated right middle lobe. Equivocal slight increased densit y with 34 mm right lower lobe spiculated lesion. Interlobular septal edema. Please see CT report of t he chest performed the same day. ACT 112: Negative or not required by law. Electronically signed by: Rip Prince M.D. 02/12/2021 7:30 AM
[2021-02-12] MEDS ORDERED: HYDROmorphone INJ 0.5 MG/0.5 ML SYR IV PRN (07:35)
[2021-02-12] MEDS ORDERED: IPRATROPIUM BROMIDE NEB SOLN 0.02% 2.5 ML VIAL INH SCH (07:35)
[2021-02-12] MEDS ORDERED: ACETAMINOPHEN 325 MG TAB PO PRN (07:35)
[2021-02-12] MEDS ORDERED: traMADol HCL 50 MG TABLET PO PRN ×2 (07:35→11:00)
[2021-02-12] MEDS ORDERED: LEVALBUTEROL 1.25MG/0.5ML NEB INH SCH (07:35)
[2021-02-12] MEDS ORDERED: ICU PROTOCOL FOR HYPERGLYCEMIA PRN (07:35)
[2021-02-12] MEDS ORDERED: PROMETHAZINE HCL 6.25 MG in SODIUM CHLORIDE 0.9% 50 ML IV PRN (07:35)
[2021-02-12] MEDS ORDERED: SODIUM CHLORIDE 0.9% 1000ML 1,000 ML IV PRN (07:44)
[2021-02-12] MEDS ORDERED: HEPARIN SOD (PORCINE) 1000 UNIT/ML IV ONE (07:44)
--- NOTE | 2021-02-12 07:49 | CT Scan Report ---
CT chest diagnostic wo con CT DOSE: 430.32 mGy.cm CLINICAL HISTORY: 61 years-old Female with sob, mass on CXR. Acute shortness of breath TECHNIQUE: Multiaxial CT images of the chest were performed without contrast. A dose lowering techni que was utilized adhering to the principles of ALARA. COMPARISON: CT abdomen and pelvis of same day and also 07/30/2020, chest CT 02/25/2017, 07/22/2016. FINDINGS: The right lobe of the thyroid is either atrophic or surgically absent. Diminutive left thyroid lobe. Vascular stent graft of the left subclavian vein. Moderate cardiomegaly with trace pericardial effusi on. Moderate coronary artery calcifications. Extensive calcified plaque of the thoracic aorta. Dilate d pulmonary artery suggestive of pulmonary artery hypertension. Prominent and enlarged hyperdense med iastinal and hilar lymph nodes are redemonstrated. Subcarinal lymph nodes measure up to 1.2 cm, uncha nged. 1.3 cm precarinal lymph node has mildly increased in size from comparison. Small layering pleural effusions. Dependent bibasilar hyperdense consolidation, left greater than rig ht has progressed from 07/30/2020 exam. 3.2 cm irregular hyperdense consolidation with central air br onchograms within the basal right lower lobe on image 182 appears stable from comparison. Hyperdense volume loss/collapse of the right middle lobe appears similar to comparison with opacified right midd le lobe bronchi seen on image 161 series 4. Extensive intralobular septal thickening with associated groundglass opacities. Mild associated bronchial wall thickening. Irregular nodular hyperdense foci o f the lung bases redemonstrated. Splenomegaly. Ill-defined hypodense splenic lesions are better characterized on the comparison CT abd omen and pelvis study of same day. Unremarkable soft tissues. No acute fracture. Avascular necrosis o f the left humeral head. No suspicious bone lesion. IMPRESSION: 1. Cardiomegaly with extensive intralobular septal thickening with intermixed groundglass opacities. A similar pattern of disease has been present on studies dating back to at least 2015. Chronic pulmon daysi edema, pulmonary hemorrhage or a nonspecific infectious or inflammatory pneumonitis remain the di fferential considerations. 2. Small pleural effusions with dependent bibasilar atelectasis. 4. Redemonstration of numerous irregular hyperdense foci within the lung bases which is nonspecific h owever favors aspirated material. 5. Chronic hyperdense consolidation with volume loss of the right middle lobe. The right middle lobe bronchi are opacified. Correlation with follow-up bronchoscopy recommended. 6. Hyperdense mediastinal and hilar adenopathy redemonstrated. 7. Additional findings as above. ACT 112: Negative or not required by law. Electronically signed by: Jesse Plunkett M.D. 02/12/2021 7:47 AM
[2021-02-12] MEDS ORDERED: LEVALBUTEROL 1.25MG/0.5ML NEB INH PRN (08:01)
[2021-02-12] MEDS ORDERED: IPRATROPIUM BROMIDE NEB SOLN 0.02% 2.5 ML VIAL INH PRN (08:03)
[2021-02-12] MEDS: LEVOTHYROXINE SODIUM 75 MCG TABLET PO SCH (08:23)
[2021-02-12] MEDS: PANTOprazole 40 MG TAB PO SCH (08:24)
[2021-02-12] MEDS: CALCIUM ACETATE 667 MG CAP/TAB PO SCH ×3 (08:24→17:56)
[2021-02-12] MEDS ORDERED: EPOETIN ALFA 10,000 UNITS/ML VIAL IV SCH (08:30)
--- NOTE | 2021-02-12 08:57 | Progress Notes ---
DATE: 02/12/2021 NEPHROLOGY CONSULTATION NOTE REASON FOR CONSULTATION: Dialysis patient admitted with hypoxic respiratory failure with significant shortness of breath. HISTORY OF PRESENT ILLNESS: The patient is a 61-year-old female with end-stage renal disease on hemodialysis Thursday, , Thursday; essentially end-stage lung disease secondary to severe COPD with interstitial lung disease on chronic home oxygen; as well as diastolic congestive heart failure. She presented to the hospital Emergency Department instead of going to her Dialysis Unit. She was complaining of increased shortness of breath much more than her baseline, which in itself is very poor. She was briefly on BiPAP and now she is on high-flow nasal cannula. The patient had high potassium of 6.7 as well as evidence of congestive heart failure with fluid overload. Unfortunately, the patient does not follow with fluid restriction. Her interdialytic weight gain is almost 10% of her body weight, which is extraordinarily massive. She has not followed our advice despite repeated warnings and unfortunately this is what we are seeing today. Arrangements are being made for emergent dialysis both for fluid as well as potassium. She is currently in the intensive care unit. Blood pressure is reasonable, if anything slightly high. PAST MEDICAL AND SURGICAL HISTORY: Includes end-stage renal disease on hemodialysis with history of vasculitis, interstitial lung disease with COPD with chronic oxygen, history of multiple pneumonia, history of congestive heart failure, history of gastroparesis, history of liver cirrhosis, chronic thrombocytopenia, hypothyroidism, hypertension, mastectomy, thyroidectomy, vascular procedure, back surgery. FAMILY HISTORY: Negative for renal disease or dialysis. PERSONAL AND SOCIAL HISTORY: Past tobacco abuse. No alcohol. She is disabled. , lives with her . ALLERGIES: List was reviewed in detail and is as per the reconciliation list. HOME MEDICATIONS: List was also reviewed in detail and is as per the reconciliation list. REVIEW OF SYSTEMS: Positive for sudden increase of shortness of breath much more than her baseline with some productive cough. It is worth noting the patient has chronic baseline shortness of breath from her severe underlying lung disease. Denies any fever or sick contact. She did not get the COVID vaccine. PHYSICAL EXAMINATION: GENERAL: Middle-aged white female who appears chronically ill. She is extremely cachectic with a weight of only 39 kilo. She appears to be in respiratory distress, on high-flow nasal cannula. She is awake, alert, oriented x3, able to give me detailed account of her medical problems. CHEST: Bilateral decreased breath sounds with basal crackles bilaterally, significantly worse than her baseline. CARDIOVASCULAR: S1 and S2 regular. Systolic murmur heard. ABDOMEN: Soft, nontender. EXTREMITIES: Shows no edema. SKIN: Shows no rashes. LABORATORY TESTS: Reviewed. Potassium was 6.7, hemoglobin was 9.1, otherwise as expected for ESRD patient. IMAGING DATA: CT scan and CT abdomen was reviewed and shows evidence of congestive heart failure, pulmonary edema with underlying lung disease. ASSESSMENT AND PLAN: A 61-year-old female with end-stage renal disease as well as end-stage lung disease, admitted with hypoxic respiratory failure with extreme shortness of breath. She was also found to have hyperkalemia. 1. End-stage renal disease. 2. Fluid overload: She needs emergent dialysis and is being arranged as I speak. We will try to do 4 hours and try to take 3-4 kilo off. Despite repeated warning, the patient is not following with salt and fluid restriction. She routinely gains about 10% of her body weight between the two dialysis sessions which is extraordinarily massive. No further workup is needed. Expect to see some improvement with her breathing status after the dialysis.
--- NOTE | 2021-02-12 09:07 | Critical Care Consultation ---
Date of Consultation February 12, 2021 Assessment & Plan (1) Acute hypoxemic respiratory failure: Reason Critically Ill: 61-year-old female in end-stage renal disease on hemodialysis who presents with acute hypoxic respiratory failure PLAN: Resp: Acute COPD exacerbation: Improved with bronchodilators and pulmonary toileting Acute on chronic hypoxic respiratory failure -2 L home O2 -Zosyn and doxycycline -We will continue doxycycline and de-escalate Zosyn to ceftriaxone -40 mg prednisone daily x5 days Fluids/Renal: End-stage renal disease on dialysis -Dialysis planned for later today ID: Doxycycline and ceftriaxone GI/Nutrition: Severe protein calorie malnutrition GERD -Can progress diet to renal diet after her speech evaluation Heme: Leukocytosis Anemia of kidney disease DVT prophylaxis: Heparin 5000 twice daily Endocrine: ICU hyperglycemia protocol Hypothyroidism -Continue home Synthroid Vascular access: Peripheral IVs Code Status: Full code Disposition: Stable for transfer after hemodialysis today (2) Acute exacerbation of chronic obstructive airways disease: (3) Hyperkalemia: (4) ESRD (end stage renal disease) on dialysis: Supervising Physician Co-Signing Physician Notes Patient was discussed on multidisciplinary rounds History of Present Illness Reason for Consultation: Acute hypoxic respiratory failure Requesting Physician: Yadi Attending Physician: Janes Sal MD History of Present Illness Patient is a 61-year-old female who has a past medical history of end-stage renal disease and severe COPD on 2 L oxygen at home who presented to the emergency department for increased work of breathing and shortness of breath. I was concerned she may have been volume overloaded she does not admit to dietary indiscretion she has not missed any of her dialysis appointments. She states that she has had a cough and exertional dyspnea which is worsened from her normal baseline for the last several weeks and she is just been unable to shake this. Currently she denies chest pain abdominal pain. Allergies Allergy/AdvReac Type Severity Reaction Status Date / Time atropine Allergy Severe Dyspnea Verified 02/12/21 07:07 linezolid Allergy Severe Thrombocyto Verified 02/12/21 07:07 penia naproxen Allergy Severe Facial Verified 02/12/21 07:07 edema dipyridamole Allergy Intermediate "Bad Verified 02/12/21 07:07 reaction" per records vancomycin Allergy Intermediate Rash/tommy Verified 02/12/21 07:07 syndrome maprotiline Allergy Unknown Unknown Unverified 02/12/21 07:07 valacyclovir [From Valtrex] Allergy Unknown Unknown Unverified 02/12/21 07:07 aspirin AdvReac Intermediate Abdominal Verified 02/12/21 07:07 cramping salicylates AdvReac Unknown Unknown Unverified 02/12/21 07:07 Home Medications Medication Instructions Recorded Confirmed Type albuterol sulfate 2.5 mg INHALATION DIRECTED PRN 11/02/18 02/12/21 History calcium acetate(phosphat bind) 667 mg PO TIDM 11/02/18 02/12/21 History hydralazine 25 mg PO TID 11/02/18 02/12/21 History levothyroxine 75 mcg PO DAILYBB 11/02/18 02/12/21 History simvastatin 20 mg PO HS 11/02/18 02/12/21 History amlodipine 10 mg PO QAM 07/14/19 02/12/21 History pantoprazole 40 mg PO QAM 07/14/19 02/12/21 History metoprolol succinate 25 mg PO QAM 11/19/19 02/12/21 History ondansetron HCl [Zofran] 4 mg PO Q6H PRN #6 tab 07/23/20 02/12/21 Rx aprepitant [Emend] 80 mg PO DAILY 08/14/20 02/12/21 History Patient History Medical History Anemia of chronic renal failure AV fistula LUE Breast cancer s/p chemo/xrt CAD (coronary artery disease) widely patent coronary anatomy with only minor luminal irregularities suggesting mild CAD per 2013 cardiac cath Cirrhosis per records COPD (chronic obstructive pulmonary disease) Acute exacerbation during recent admission. Hospitalist progress note 08/08 notes "resolved respiratory status at baseline." ESRD (end stage renal disease) dialysis Thursday//Thursday ([place]) GERD (gastroesophageal reflux disease) History of abdominal paracentesis During admission -08/2020 History of recent hospitalization treated inpatient [facility] for peritoneal infection 07/30 - 08/10 Hyperlipidemia Hypertension Hypothyroidism Non-ischemic cardiomyopathy Hx. EF 55-60% on most recent echo 04/2019 Non-small cell lung cancer (NSCLC) dx 04/2019; s/p XRT; RML On home oxygen therapy 2L O2 HS Poor historian unable to recall specifics about her past medical history. alert and oriented x3. Splenomegaly, not elsewhere classified w/ multiple hypodense masses stable on fall 2019 imaging and present since at least 2005 Thrombocytopenia chronic, 2/2 cirrhosis. Surgical History H/O partial thyroidectomy GOITER History of bronchoscopy History of cardiac cath 2013- NO STENTS History of colonoscopy History of esophagogastroduodenoscopy (EGD) History of tooth extraction Hx of lumpectomy LEFT S/P arteriovenous (AV) fistula creation S/P laparoscopic cholecystectomy 06/2020 [facility] Family History Other Family history non-contributory No family history of adverse response to anesthesia Social History Smoking Status: Former smoker Tobacco Type: Cigarettes Smoking End Date: 2009; Second Hand Exposure: No; Tobacco Cessation Education Requested by Patient: No Hx Alcohol Use: No Hx Substance Use: No Preferred Language: Ug[place] Communication Ability: Effective Federal Aid Coordinator Required: No Beliefs That Will Affect Care: None marital status: Current Living Situation: Spouse current occupational status: disabled Other Information That Helps Us Care for You: No Feels Safe at Home: Yes Safety Concerns: Feels Safe At This Time Assistive Devices: Nebulizer and Oxygen - Continuous Review of Systems Review of Systems: All systems reviewed & are unremarkable except as noted in HPI & below Physical Exam Physical Exam: General: Alert. nontoxic. Skin: Warm, dry, Head: Atraumatic Ears, nose, mouth and throat: airway patent, pursed lip breathing Cardiovascular: Normal peripheral perfusion Respiratory: no respiratory distress, mild tachypnea Gastrointestinal: Non distended Musculoskeletal: No deformity Results & Data Results & Data ([facility]) Vital Signs (Past 12 Hours) Vital Signs Temp Pulse Pulse Resp BP BP BP 02/12/21 07:59 80 28 H 02/12/21 07:58 88 24 02/12/21 07:20 36.8 C 92 H 32 H 156/65 H 02/12/21 07:05 96 H 30 H 156/85 H 02/12/21 06:30 98 H 22 162/71 H 02/12/21 06:00 97 H 36 H 155/72 H 02/12/21 05:59 96 H 37 H 162/55 H 02/12/21 05:19 97 H 33 H 02/12/21 05:01 99 H 36 H 170/131 H 02/12/21 04:56 36.7 C 02/12/21 04:53 02/12/21 04:49 103 H 36 H 154/72 H 02/12/21 04:45 100 H 38 H 154/72 H 02/12/21 04:30 98 H 33 H Pulse Ox 02/12/21 07:59 97 02/12/21 07:58 97 02/12/21 07:20 100 02/12/21 07:05 100 02/12/21 06:30 100 02/12/21 06:00 100 02/12/21 05:59 100 02/12/21 05:19 100 02/12/21 05:01 100 02/12/21 04:56 02/12/21 04:53 100 02/12/21 04:49 100 02/12/21 04:45 100 02/12/21 04:30 100 Laboratory Results 02/12/21 02/12/21 02/12/21 Range/Units 07:15 05:29 04:44 WBC (4.8-10.8) K/uL RBC (4.2-5.4) M/uL Hgb (12.0-16.0) g/dL Hct (37-47) % MCV (80-100) fL MCH (25-34) pg MCHC (32-36) g/dL RDW Std Deviation (36.4-46.3) fL RDW Coeff of Dave (11.5-14.5) % Plt Count (130-400) K/uL MPV (7.4-10.4) fL Immature Gran % (Auto) % Neut % (Auto) % Lymph % (Auto) % [place] % (Auto) % Eos % (Auto) % Baso % (Auto) % Neut # (Auto) (1.4-6.5) K/uL Lymph # (Auto) (1.2-3.4) K/uL [place] # (Auto) (0.11-0.59) K/uL Eos # (Auto) (0-0.5) K/uL Baso # (Auto) (0-0.2) K/uL Immature Gran # (Auto) (0.00-0.02) K/uL APTT (21.0-31.0) Seconds PTT Ratio Sodium (136-145) mmol/L Potassium (3.5-5.1) mmol/L Chloride (98-107) mmol/L Carbon Dioxide (21-32) mmol/L Anion Gap (3-11) BUN (7-18) mg/dl Creatinine (0.6-1.2) mg/dl Est Cr Clr Drug Dosing ml/min Est GFR ( Amer) ml/min Est GFR (Non-Af Amer) ml/min BUN/Creatinine Ratio (10-20) Glucose (70-99) mg/dl Lactate 1.3 (0.4-2.0) mmol/L Calcium (8.5-10.1) mg/dl Magnesium (1.8-2.4) mg/dl Total Bilirubin (0.2-1) mg/dl AST (15-37) U/L ALT (12-78) U/L Alkaline Phosphatase (45-117) U/L Troponin I (0-0.045) ng/ml NT-Pro-B Natriuret Pep (0-900) pg/ml Total Protein (6.4-8.2) gm/dl Albumin (3.4-5.0) gm/dl Globulin (2.5-4.0) gm/dl Albumin/Globulin Ratio (0.9-2) Lipase (73-393) U/L Procalcitonin 3.22 H (0-0.5) ng/ml Nasal Screen MRSA (PCR) Pending COVID-19 Eval Order SARS-CoV-2 (PCR) (Negative) 02/12/21 02/12/21 02/12/21 Range/Units 04:44 04:44 04:44 WBC (4.8-10.8) K/uL RBC (4.2-5.4) M/uL Hgb (12.0-16.0) g/dL Hct (37-47) % MCV (80-100) fL MCH (25-34) pg MCHC (32-36) g/dL RDW Std Deviation (36.4-46.3) fL RDW Coeff of Dave (11.5-14.5) % Plt Count (130-400) K/uL MPV (7.4-10.4) fL Immature Gran % (Auto) % Neut % (Auto) % Lymph % (Auto) % [place] % (Auto) % Eos % (Auto) % Baso % (Auto) % Neut # (Auto) (1.4-6.5) K/uL Lymph # (Auto) (1.2-3.4) K/uL [place] # (Auto) (0.11-0.59) K/uL Eos # (Auto) (0-0.5) K/uL Baso # (Auto) (0-0.2) K/uL Immature Gran # (Auto) (0.00-0.02) K/uL APTT 27.8 (21.0-31.0) Seconds PTT Ratio 1.1 Sodium (136-145) mmol/L Potassium (3.5-5.1) mmol/L Chloride (98-107) mmol/L Carbon Dioxide (21-32) mmol/L Anion Gap (3-11) BUN (7-18) mg/dl Creatinine (0.6-1.2) mg/dl Est Cr Clr Drug Dosing ml/min Est GFR ( Amer) ml/min Est GFR (Non-Af Amer) ml/min BUN/Creatinine Ratio (10-20) Glucose (70-99) mg/dl Lactate (0.4-2.0) mmol/L Calcium (8.5-10.1) mg/dl Magnesium (1.8-2.4) mg/dl Total Bilirubin (0.2-1) mg/dl AST (15-37) U/L ALT (12-78) U/L Alkaline Phosphatase (45-117) U/L Troponin I (0-0.045) ng/ml NT-Pro-B Natriuret Pep (0-900) pg/ml Total Protein (6.4-8.2) gm/dl Albumin (3.4-5.0) gm/dl Globulin (2.5-4.0) gm/dl Albumin/Globulin Ratio (0.9-2) Lipase (73-393) U/L Procalcitonin (0-0.5) ng/ml Nasal Screen MRSA (PCR) COVID-19 Eval Order Covid19 at [facility] SARS-CoV-2 (PCR) NEGATIVE (Negative) 02/12/21 02/12/21 Range/Units 04:44 04:44 WBC 14.18 H (4.8-10.8) K/uL RBC 3.63 L (4.2-5.4) M/uL Hgb 9.1 L (12.0-16.0) g/dL Hct 31.0 L (37-47) % MCV 85.4 (80-100) fL MCH 25.1 (25-34) pg MCHC 29.4 L (32-36) g/dL RDW Std Deviation 60.3 H (36.4-46.3) fL RDW Coeff of Dave 19.2 H (11.5-14.5) % Plt Count 165 (130-400) K/uL MPV 9.5 (7.4-10.4) fL Immature Gran % (Auto) 0.4 % Neut % (Auto) 91.0 % Lymph % (Auto) 2.5 % [place] % (Auto) 4.9 % Eos % (Auto) 1.1 % Baso % (Auto) 0.1 % Neut # (Auto) 12.91 H (1.4-6.5) K/uL Lymph # (Auto) 0.36 L (1.2-3.4) K/uL [place] # (Auto) 0.69 H (0.11-0.59) K/uL Eos # (Auto) 0.15 (0-0.5) K/uL Baso # (Auto) 0.02 (0-0.2) K/uL Immature Gran # (Auto) 0.05 H (0.00-0.02) K/uL APTT (21.0-31.0) Seconds PTT Ratio Sodium 136 (136-145) mmol/L Potassium 6.7 H* (3.5-5.1) mmol/L Chloride 102 (98-107) mmol/L Carbon Dioxide 26 (21-32) mmol/L Anion Gap 8.0 (3-11) BUN 48 H (7-18) mg/dl Creatinine 7.53 H* (0.6-1.2) mg/dl Est Cr Clr Drug Dosing 5.5 ml/min Est GFR ( Amer) 6.1 ml/min Est GFR (Non-Af Amer) 5.3 ml/min BUN/Creatinine Ratio 6.4 L (10-20) Glucose 102 H (70-99) mg/dl Lactate (0.4-2.0) mmol/L Calcium 8.7 (8.5-10.1) mg/dl Magnesium 2.4 (1.8-2.4) mg/dl Total Bilirubin 0.7 (0.2-1) mg/dl AST 17 (15-37) U/L ALT 8 L (12-78) U/L Alkaline Phosphatase 179 H (45-117) U/L Troponin I < 0.015 (0-0.045) ng/ml NT-Pro-B Natriuret Pep 26642 H (0-900) pg/ml Total Protein 6.9 (6.4-8.2) gm/dl Albumin 2.5 L (3.4-5.0) gm/dl Globulin 4.4 H (2.5-4.0) gm/dl Albumin/Globulin Ratio 0.6 L (0.9-2) Lipase 159 (73-393) U/L Procalcitonin (0-0.5) ng/ml Nasal Screen MRSA (PCR) COVID-19 Eval Order SARS-CoV-2 (PCR) (Negative) Coding Level of Care Code 93453 Inpt Consult Level 5 Diagnoses Acute hypoxemic respiratory failure J96.01 Acute exacerbation of chronic obstructive airways disease J44.1 Hyperkalemia E87.5 ESRD (end stage renal disease) on dialysis N18.6; Z99.2
[2021-02-12] MEDS ORDERED: XOPENEX/ATROVENT 1.25mg/0.5MG NEB COMBO NEB SCH (10:00)
[2021-02-12] MEDS: COLESTIPOL HCL 1 GM TAB PO SCH ×2 (10:11→20:34)
[2021-02-12 10:15] LABS: iSTAT Arterial Blood Gas HCO3 30 meg/L (19-24); iSTAT Arterial Blood Gas pCO2 44 mmHg (35-46); iSTAT Arterial Blood Gas pH 7.45 (7.35-7.45); iSTAT Arterial Blood Gas pO2 245 mmHg (80-95); iSTAT Carbon Dioxide 32 mmol/L (24-31); iSTAT Hematocrit 28 % (37-47); iSTAT Hemoglobin 9.5 g/dl (12.0-16.0); iSTAT Potassium 6.7 mmol/L (3.3-5.0); iSTAT Sodium 134 mmol/L (135-144)
[2021-02-12 10:16] LABS: iSTAT Sample Type Arterial
[2021-02-12] MEDS ORDERED: PIPERACILLIN/TAZOBACTAM 3.375 GM in DEXTROSE 5% 100 ML IV SCH (13:00)
[2021-02-12] MEDS: cefTRIAXone SODIUM 1,000 MG in DEXTROSE 5% 50 ML IV SCH (13:58)
[2021-02-12] MEDS: METOCLOPRAMIDE HCL 10 MG TABLET PO PRN (13:59)
[2021-02-12] MEDS: hydrALAZINE HCL 25 MG TAB PO SCH ×3 (13:59→20:32)
[2021-02-12] MEDS: amLODIPine BESYLATE 5 MG TAB PO SCH (13:59)
[2021-02-12] MEDS: METOPROLOL SUCC 25MG EXT REL TAB PO SCH (13:59)
--- NOTE | 2021-02-12 14:34 | Hospitalist Progress Note ---
Date of Service February 12, 2021 Assessment & Plan (1) Acute hypoxemic respiratory failure: Acute on chronic respiratory failure with hypoxia Chronic oxygen dependency--on 2 L nasal cannula at baseline Acute COPD exacerbation Suspected pneumonitis likely due to Aspiration --CT Chest:Cardiomegaly with extensive intralobular septal thickening with intermixed groundglass opacities. A similar pattern of disease has been present on studies dating back to at least 2016. Chronic pulmonary edema, pulmonary hemorrhage or a nonspecific infectious or inflammatory pneumonitis remain the differential considerations. Small pleural effusions with dependent bibasilar atelectasis. Redemonstration of numerous irregular hyperdense foci within the lung bases which is nonspecific however favors aspirated material. Chronic hyperdense consolidation with volume loss of the right middle lobe. The right mi ddle lobe bronchi are opacified. Correlation with follow-up bronchoscopy recommended. Hyperdense mediastinal and hilar adenopathy redemonstrated. -Volume status managed through dialysis -Continue bronchodilators, empiric antibiotics, prednisone Appreciate critical care input Continue supplemental oxygen as needed Aspiration precautions Hyperkalemia Secondary to ESRD Fluid Overload HD as per Nephrology Appreciate Nephrology Input Monitor electrolytes Hypertension BP elevated likely due to fluid overload Continue amlodipine, hydralazine, metoprolol Monitor Chronic abdominal pain Likely Multifactorial -CT ABD:No evidence of bowel obstruction. No evidence of free air. Severe bilateral renal atrophy. Progressive moderate splenomegaly. Subtle hypodense splenic lesions persist. Suspected hepatic cirrhosis. Normal appendix. No evidence of acute diverticulitis. No evidence of bowel obstruction. No evidence of free air. Mild submucosal fat hypertrophy within the colon. This is nonspeci fic finding which could represent the sequela of chronic inflammatory bowel disease. Pain control Severe protein calorie malnutrition BMI 18 Dietitian consulted CAD/PVD As per records Continue on statin Breast cancer S/P surgery NSCLC S/P Radiation Follows with [facility] radiation oncology Chronic thrombocytopenia Monitor Platelets Hypothyroidism Continue levothyroxine Check TSH H/O Gastroparesis H/O Pulmonary vasculitis Chronic anemia Past tobacco abuse Continue home meds DVT Px: Heparin SQ Code Status Full code Admission and Anticipated Discharge Date Admission Date: February 12, 2021 Subjective Patient is seen and examined Currently getting hemodialysis Less short of breath today States having chronic intermittent abdominal pain, predominantly left upper quadrant Admits to having cough intermittently Denies chest pain, dizziness, nausea, vomiting Offers no other complaints Review of Systems Review of Systems: All systems reviewed & are unremarkable except as noted in HPI & below Physical Exam Physical Exam: Physical Exam: Vitals signs as noted above General Appearance:Thin, frail, Chronic ill appearing, no apparent distress Head: normocephalic, Atraumatic Eyes: normal inspection, EOMI Neck: supple, Trachea midline Respiratory/Chest: Decreased breath sounds, CTA Cardiovascular: S1, S2, No murmur Abdomen/GI:Soft, Non tender, Bowel sounds present Extremities/Musculoskeletal:normal inspection, no edema Neurologic/Psych:AAOX3, grossly no focal neurological deficits Skin: normal color, warm Results & Data Results & Data ([facility]) Vital Signs (Past 12 Hours) Vital Signs Temp Pulse Pulse Resp BP BP BP 02/12/21 13:00 89 116/59 L 02/12/21 12:45 90 118/54 L 02/12/21 12:30 93 H 121/60 02/12/21 12:15 90 139/64 02/12/21 12:00 92 H 151/64 H 02/12/21 11:45 91 H 131/64 02/12/21 11:30 95 H 140/76 02/12/21 11:14 90 144/63 H 02/12/21 11:00 90 149/65 H 02/12/21 10:45 89 142/68 H 02/12/21 10:23 90 150/72 H 02/12/21 10:20 36.4 C L 88 02/12/21 10:00 88 20 156/71 H 02/12/21 09:00 86 19 148/72 H 02/12/21 08:00 88 24 147/57 H 02/12/21 07:59 80 28 H 02/12/21 07:58 88 24 02/12/21 07:35 90 02/12/21 07:24 36.8 C 02/12/21 07:20 36.8 C 92 H 32 H 156/65 H 02/12/21 07:05 96 H 30 H 156/85 H 02/12/21 07:00 97 H 30 H 156/85 H 02/12/21 06:30 98 H 22 162/71 H 02/12/21 06:00 97 H 36 H 155/72 H 02/12/21 05:59 96 H 37 H 162/55 H 02/12/21 05:19 97 H 33 H 02/12/21 05:01 99 H 36 H 170/131 H 02/12/21 04:56 36.7 C 02/12/21 04:53 02/12/21 04:49 103 H 36 H 154/72 H 02/12/21 04:45 100 H 38 H 154/72 H 02/12/21 04:30 98 H 33 H Pulse Ox 02/12/21 13:00 02/12/21 12:45 02/12/21 12:30 02/12/21 12:15 02/12/21 12:00 02/12/21 11:45 02/12/21 11:30 02/12/21 11:14 02/12/21 11:00 02/12/21 10:45 02/12/21 10:23 02/12/21 10:20 02/12/21 10:00 98 02/12/21 09:00 100 02/12/21 08:00 97 02/12/21 07:59 97 02/12/21 07:58 97 02/12/21 07:35 02/12/21 07:24 02/12/21 07:20 100 02/12/21 07:05 100 02/12/21 07:00 100 02/12/21 06:30 100 02/12/21 06:00 100 02/12/21 05:59 100 02/12/21 05:19 100 02/12/21 05:01 100 02/12/21 04:56 02/12/21 04:53 100 02/12/21 04:49 100 02/12/21 04:45 100 02/12/21 04:30 100 Laboratory Results Short CBC 02/12/21 Range/Units 04:44 WBC 14.18 H (4.8-10.8) K/uL Hgb 9.1 L (12.0-16.0) g/dL Hct 31.0 L (37-47) % Plt Count 165 (130-400) K/uL BMP 02/12/21 04:44 Sodium 136 Potassium 6.7 H* Chloride 102 Carbon Dioxide 26 BUN 48 H Creatinine 7.53 H* Glucose 102 H Calcium 8.7 Cardiac Enzymes 02/12/21 Range/Units 04:44 Troponin I < 0.015 (0-0.045) ng/ml Liver Function 02/12/21 Range/Units 04:44 Total Bilirubin 0.7 (0.2-1) mg/dl AST 17 (15-37) U/L ALT 8 L (12-78) U/L Alkaline Phosphatase 179 H (45-117) U/L Albumin 2.5 L (3.4-5.0) gm/dl
[2021-02-12] MEDS ORDERED: TPN/PPN CONSULT PHARMACY STA (15:14)
[2021-02-12] MEDS: HEPARIN SOD (PORCINE) 1000 UNIT/ML IV SCH (17:17)
[2021-02-12] MEDS: DOXYCYCLINE HYCLATE 100 MG CAP PO SCH (17:55)
[2021-02-12] MEDS: SIMVASTATIN 20 MG TAB PO SCH (20:33)
[2021-02-12] MEDS: HEPARIN SOD 5,000 UNIT/0.5 ML VIAL SQ SCH (20:34)
[2021-02-12] MEDS: SENNA 8.6 MG TAB PO SCH (20:34)
[2021-02-13] MEDS: LEVOTHYROXINE SODIUM 75 MCG TABLET PO SCH (04:58)
--- NOTE | 2021-02-13 05:51 | Electrocardiogram Report ---
Test Reason : Blood Pressure : / mmHG Vent. Rate : 103 BPM Atrial Rate : 103 BPM P-R Int : 156 ms QRS Dur : 088 ms QT Int : 340 ms P-R-T Axes : 029 017 063 degrees QTc Int : 445 ms Poor data quality, interpretation may be adversely affected Sinus tachycardia Minimal voltage criteria for LVH, may be normal variant Anteroseptal infarct (cited on or before 26-MAR-2017) Abnormal ECG When compared with ECG of 30-JUL-2020 04:42, Vent. rate has increased BY 37 BPM T wave inversion less evident in Lateral leads Confirmed by Сергей Wilkerson ([id number]) on 02/13/2021 5:51:26 AM Referred By: REFERRED SELF Confirmed By:Сергей Wilkerson
[2021-02-13 06:49] LABS: Hematocrit (blood only) 26.1 % (37-47); Hemoglobin 7.6 g/dL (12.0-16.0); Immature Granulocytes # (auto) 0.03 K/uL (0.00-0.02); Immature Granulocytes % (auto) 0.4 %; Lymphocytes # (auto) 0.39 K/uL (1.2-3.4); Lymphocytes % (auto) 4.9 %; Mean Corpuscular Hemoglobin 24.9 pg (25-34); Mean Corpuscular Hgb Conc 29.1 g/dL (32-36); Mean Corpuscular Volume 85.6 fL (80-100); Mean Platelet Volume 9.6 fL (7.4-10.4); Monocytes # (auto) 0.21 K/uL (0.11-0.59); Monocytes % (auto) 2.6 %; Neutrophils # (auto) 7.35 K/uL (1.4-6.5); Neutrophils % (auto) 92.1 %; Platelet Count 125 K/uL (130-400); RDW Standard Deviation 59.7 fL (36.4-46.3); Red Blood Count 3.05 M/uL (4.2-5.4); White Blood Count 7.98 K/uL (4.8-10.8)
[2021-02-13 07:12] LABS: Anisocytosis Present
[2021-02-13 07:41] LABS: BUN Creatinine Ratio 9.3 (10-20); Calcium 7.7 mg/dl (8.5-10.1); Creatinine Clr Calc Pharmacy 8.1 ml/min; Est GFR (African American) 10.7 ml/min; Est GFR (Non-African American) 9.2 ml/min; Potassium 4.9 mmol/L (3.5-5.1); Thyroid Stimulating Hormone 0.501 uIu/ml (0.300-4.500)
[2021-02-13] MEDS: predniSONE 20 MG TAB PO SCH (08:04)
[2021-02-13] MEDS: METOCLOPRAMIDE HCL 10 MG TABLET PO PRN (08:04)
[2021-02-13] MEDS: DOXYCYCLINE HYCLATE 100 MG CAP PO SCH ×2 (08:04→19:41)
[2021-02-13] MEDS: CALCIUM ACETATE 667 MG CAP/TAB PO SCH ×3 (08:04→17:35)
[2021-02-13] MEDS: METOPROLOL SUCC 25MG EXT REL TAB PO SCH (08:04)
[2021-02-13] MEDS: amLODIPine BESYLATE 5 MG TAB PO SCH (08:05)
[2021-02-13] MEDS: hydrALAZINE HCL 25 MG TAB PO SCH ×3 (08:05→19:41)
[2021-02-13] MEDS: PANTOprazole 40 MG TAB PO SCH (08:05)
[2021-02-13] MEDS: HEPARIN SOD 5,000 UNIT/0.5 ML VIAL SQ SCH (08:06)
[2021-02-13] MEDS: COLESTIPOL HCL 1 GM TAB PO SCH ×2 (09:05→21:18)
--- NOTE | 2021-02-13 10:54 | Fluoroscopy Report ---
FL video swallow HISTORY: assess for aspiration TECHNIQUE: Video fluoroscopic evaluation of swallowing was performed in the AP and lateral projection s by the speech pathology staff. The patient is fed nectar-thick and thin liquid barium, a barium coa evelio wafer, and barium pudding. FLUOROSCOPY TIME: 1.8 minutes. A cine loop submitted. COMPARISON STUDY: Upper GI series 07/31/2020. FINDINGS: There is normal hyoid excursion and epiglottic deflection. Multiple episodes of premature s pillover to the level of the pyriform sinuses. No significant penetration or aspiration identified. IMPRESSION: 1. No aspiration identified. Multiple episodes of premature spillover to the level of the pyriform si nuses. 2. Please see the speech pathologist report for detailed findings and recommendations. ACT 112: Negative or not required by law. Electronically signed by: Chucho Umana M.D. 02/13/2021 10:53 AM
--- NOTE | 2021-02-13 11:01 | Progress Notes ---
DATE: 02/13/2021 NEPHROLOGY PROGRESS NOTE SUBJECTIVE: Overnight, the patient had dialysis and after that she actually feels better from breathing standpoint. Although even her best of the days, she still has significant shortness of breath. Currently on 2 liter nasal cannula, which is her baseline. OBJECTIVE: VITAL SIGNS: Blood pressure is 126/51, pulse rate 81, temperature 36.6, 99% on 2 liter nasal cannula. HEENT: Mucous membrane is moist. NECK: Supple. No jugular venous distention. CHEST: Bilateral basal crackles and prolonged expiration. CARDIOVASCULAR: S1 and S2 regular. ABDOMEN: Soft, nontender. EXTREMITIES: Show no edema. LABORATORY TESTS: Blood work from today shows normal potassium and other labs consistent with ESRD. ASSESSMENT AND PLAN: A 61-year-old female who is end-stage renal disease dialysis patient [id number], admitted with hypoxic respiratory failure with significant shortness of breath. 1. End-stage renal disease: Electrolytes are normal today. She will have a regular dialysis again tomorrow for 3 hours 30 minutes and we will try to take about 2.5 to 3 kilo off. There is no question there was some component of fluid overload making her symptoms worse yesterday as today she feels significantly better. Again, reminded her to follow with strict fluid and salt restriction, which she does not do as an outpatient. 2. Hypoxic respiratory failure: She has chronic underlying severe lung disease as well as end-stage renal disease. Defer to pulmonary.
--- NOTE | 2021-02-13 11:22 | XRay Report ---
XR chest 1V portable CLINICAL HISTORY: COPD. COMPARISON STUDY: Chest radiograph and chest CT February 12, 2021. FINDINGS: Vascular stent within left axilla is noted. There is no pneumothorax. Cardiomegaly is uncha nged. There are trace bilateral pleural effusions. Extensive right middle lobe opacity is better depi cted on chest CT. Interstitial thickening has improved since exam of February 12, 2021. IMPRESSION: Interval improvement in pulmonary edema. Otherwise, unchanged appearance of the chest wi th persistent right middle lobe opacity which is better depicted on chest CT of February 12, 2021. ACT 112: Negative or not required by law. Electronically signed by: Hemal Rushing M.D. 02/13/2021 11:20 AM
[2021-02-13] MEDS: cefTRIAXone SODIUM 1,000 MG in DEXTROSE 5% 50 ML IV SCH (12:48)
[2021-02-13 13:52] LABS: Hematocrit (blood only) 26.2 % (37-47); Hemoglobin 7.7 g/dL (12.0-16.0)
--- NOTE | 2021-02-13 17:21 | Hospitalist Progress Note ---
Date of Service February 13, 2021 Assessment & Plan (1) Acute hypoxemic respiratory failure: Acute on chronic respiratory failure with hypoxia Chronic oxygen dependency--on 2 L nasal cannula at baseline Acute COPD exacerbation Suspected pneumonitis likely due to Aspiration --CT Chest:Cardiomegaly with extensive intralobular septal thickening with intermixed groundglass opacities. A similar pattern of disease has been present on studies dating back to at least 2016. Chronic pulmonary edema, pulmonary hemorrhage or a nonspecific infectious or inflammatory pneumonitis remain the differential considerations. Small pleural effusions with dependent bibasilar atelectasis. Redemonstration of numerous irregular hyperdense foci within the lung bases which is nonspecific however favors aspirated material. Chronic hyperdense consolidation with volume loss of the right middle lobe. The right mi ddle lobe bronchi are opacified. Correlation with follow-up bronchoscopy recommended. Hyperdense mediastinal and hilar adenopathy redemonstrated. -Volume status managed through dialysis -Continue bronchodilators, empiric antibiotics, prednisone Appreciate critical care input Continue supplemental oxygen as needed Aspiration precautions Continue current medications Esophageal Dysmotility Video Swallow: No aspiration identified. Multiple episodes of premature spillover to the level of the pyriform sinuses. Appreciate speech therapy recommendations Continue Ciprodex Needs GI follow-up as outpatient Acute on chronic anemia Unclear etiology Hold heparin Check fecal occult Monitor CBC Hyperkalemia Secondary to ESRD Fluid Overload HD as per Nephrology Appreciate Nephrology Input Monitor electrolytes Plan for hemodialysis tomorrow Hypertension BP elevated likely due to fluid overload on presentation Continue amlodipine, hydralazine, metoprolol Monitor Chronic abdominal pain Likely Multifactorial -CT ABD:No evidence of bowel obstruction. No evidence of free air. Severe bilateral renal atrophy. Progressive moderate splenomegaly. Subtle hypodense splenic lesions persist. Suspected hepatic cirrhosis. Normal appendix. No evidence of acute diverticulitis. No evidence of bowel obstruction. No evidence of free air. Mild submucosal fat hypertrophy within the colon. This is no nspecific finding which could represent the sequela of chronic inflammatory bowel disease. Pain control Severe protein calorie malnutrition BMI 18 Dietitian consulted CAD/PVD As per records Continue on statin Breast cancer S/P surgery NSCLC S/P Radiation Follows with [facility] [place] radiation oncology Chronic thrombocytopenia Monitor Platelets Hypothyroidism Continue levothyroxine Check TSH H/O Gastroparesis H/O Pulmonary vasculitis Chronic anemia Past tobacco abuse Continue home meds DVT Px: Heparin SQ Code Status Full code Admission and Anticipated Discharge Date Admission Date: February 12, 2021 Subjective Patient is seen and examined As short of breath today Had 1 loose bowel movement Cough about the same as yesterday Plan for hemodialysis tomorrow Video swallow suggestive of esophageal dysmotility Denies chest pain, dizziness, nausea, vomiting Review of Systems Review of Systems: All systems reviewed & are unremarkable except as noted in HPI & below Physical Exam Physical Exam: Physical Exam: Vitals signs as noted above General Appearance:Thin, frail, Chronic ill appearing, no apparent distress Head: normocephalic, Atraumatic Eyes: normal inspection, EOMI Neck: supple, Trachea midline Respiratory/Chest: Decreased breath sounds, CTA Cardiovascular: S1, S2, No murmur Abdomen/GI:Soft, Non tender, Bowel sounds present Extremities/Musculoskeletal:normal inspection, no edema Neurologic/Psych:AAOX3, grossly no focal neurological deficits Skin: normal color, warm Results & Data Results & Data ([facility]) Vital Signs (Past 12 Hours) Vital Signs Temp Pulse Pulse Resp BP Pulse Ox 02/13/21 15:34 36.6 C 78 20 113/46 L 98 02/13/21 15:03 88 02/13/21 12:00 36.6 C 79 19 127/54 L 97 02/13/21 07:40 36.6 C 81 20 126/51 L 99 02/13/21 07:12 84 Laboratory Results Short CBC 02/13/21 02/13/21 Range/Units 06:14 13:18 WBC 7.98 (4.8-10.8) K/uL Hgb 7.6 L 7.7 L (12.0-16.0) g/dL Hct 26.1 L 26.2 L (37-47) % Plt Count 125 L (130-400) K/uL BMP 02/13/21 06:14 Sodium 137 Potassium 4.9 D Chloride 102 Carbon Dioxide 26 BUN 44 H Creatinine 4.74 H* D Glucose 130 H Calcium 7.7 L
[2021-02-13] MEDS: SENNA 8.6 MG TAB PO SCH (19:41)
[2021-02-13] MEDS: SIMVASTATIN 20 MG TAB PO SCH (19:42)
[2021-02-14] MEDS: LEVOTHYROXINE SODIUM 75 MCG TABLET PO SCH (05:43)
[2021-02-14 06:59] LABS: Hematocrit (blood only) 26.5 % (37-47); Hemoglobin 7.8 g/dL (12.0-16.0)
[2021-02-14] MEDS ORDERED: EPOETIN ALFA 10,000 UNITS/ML VIAL IV ONE (07:00)
[2021-02-14] MEDS ORDERED: SODIUM CHLORIDE 0.9% 1000ML 1,000 ML IV PRN (07:00)
[2021-02-14 07:46] LABS: BUN Creatinine Ratio 12.5 (10-20); Calcium 7.1 mg/dl (8.5-10.1); Est GFR (African American) 7.4 ml/min; Est GFR (Non-African American) 6.4 ml/min; Potassium 5.4 mmol/L (3.5-5.1)
[2021-02-14] MEDS: METOPROLOL SUCC 25MG EXT REL TAB PO SCH (08:10)
[2021-02-14] MEDS: predniSONE 20 MG TAB PO SCH (08:11)
[2021-02-14] MEDS: DOXYCYCLINE HYCLATE 100 MG CAP PO SCH ×2 (08:11→20:38)
[2021-02-14] MEDS: CALCIUM ACETATE 667 MG CAP/TAB PO SCH ×3 (08:11→17:28)
[2021-02-14] MEDS: PANTOprazole 40 MG TAB PO SCH (08:11)
[2021-02-14] MEDS: hydrALAZINE HCL 25 MG TAB PO SCH ×3 (08:30→20:37)
[2021-02-14] MEDS: amLODIPine BESYLATE 5 MG TAB PO SCH (08:30)
--- NOTE | 2021-02-14 11:48 | Dialysis Progress Note ---
Date of Service February 14, 2021 Assessment & Plan (1) ESRD (end stage renal disease) on dialysis: Admission and Anticipated Discharge Date Admission Date: February 12, 2021 Subjective Seen in dialysis. BP, AVF fine. QB and QD fine. NO cramping.Less SOB now. Physical Exam Physical Exam: Physical Exam: Vitals signs as noted above General Appearance:Thin, frail, Chronic ill appearing, no apparent distress Head: normocephalic, Atraumatic Eyes: normal inspection, EOMI Neck: supple, Trachea midline Respiratory/Chest: Decreased breath sounds, CTA Cardiovascular: S1, S2, No murmur Abdomen/GI:Soft, Non tender, Bowel sounds present Extremities/Musculoskeletal:normal inspection, no edema Neurologic/Psych:AAOX3, grossly no focal neurological deficits Skin: normal color, warm Results & Data ([facility]) Vital Signs (Past 12 Hours) Vital Signs Temp Pulse Pulse Pulse Resp BP BP 02/14/21 11:20 64 119/53 L 02/14/21 11:00 67 117/56 L 02/14/21 10:40 61 133/55 L 02/14/21 10:20 64 115/51 L 02/14/21 10:00 65 113/57 L 02/14/21 09:47 74 20 02/14/21 09:40 72 95/50 L 02/14/21 09:14 70 115/56 L 02/14/21 09:10 36.4 C L 75 02/14/21 08:00 66 02/14/21 07:37 36.4 C L 66 17 120/50 L 02/14/21 07:21 69 02/14/21 03:48 36.5 C 70 18 123/52 L 02/14/21 00:00 36.4 C L 69 72 18 128/57 L Pulse Ox 02/14/21 11:20 02/14/21 11:00 02/14/21 10:40 02/14/21 10:20 02/14/21 10:00 02/14/21 09:47 98 02/14/21 09:40 02/14/21 09:14 02/14/21 09:10 02/14/21 08:00 02/14/21 07:37 99 02/14/21 07:21 02/14/21 03:48 99 02/14/21 00:00 99
[2021-02-14] MEDS: COLESTIPOL HCL 1 GM TAB PO SCH ×2 (13:21→22:13)
[2021-02-14] MEDS: cefTRIAXone SODIUM 1,000 MG in DEXTROSE 5% 50 ML IV SCH (13:21)
--- NOTE | 2021-02-14 15:37 | Hospitalist Progress Note ---
Date of Service February 14, 2021 Assessment & Plan (1) Acute hypoxemic respiratory failure: Acute on chronic respiratory failure with hypoxia Chronic oxygen dependency--on 2 L nasal cannula at baseline Acute COPD exacerbation Suspected pneumonitis likely due to Aspiration --CT Chest:Cardiomegaly with extensive intralobular septal thickening with intermixed groundglass opacities. A similar pattern of disease has been present on studies dating back to at least 2016. Chronic pulmonary edema, pulmonary hemorrhage or a nonspecific infectious or inflammatory pneumonitis remain the differential considerations. Small pleural effusions with dependent bibasilar atelectasis. Redemonstration of numerous irregular hyperdense foci within the lung bases which is nonspecific however favors aspirated material. Chronic hyperdense consolidation with volume loss of the right middle lobe. The right m iddle lobe bronchi are opacified. Correlation with follow-up bronchoscopy recommended. Hyperdense mediastinal and hilar adenopathy redemonstrated. -Volume status managed through dialysis -Continue bronchodilators, empiric antibiotics, prednisone to complete 5 day course Appreciate critical care input Continue Aspiration precautions Saturating well on 2 L of supplemental Esophageal Dysmotility Video Swallow: No aspiration identified. Multiple episodes of premature spillover to the level of the pyriform sinuses. Appreciate speech therapy recommendations Continue Ciprodex Needs GI follow-up as outpatient Acute on chronic anemia Unclear etiology Hold heparin Check fecal occult--pending Monitor CBC Hyperkalemia Secondary to ESRD Fluid Overload HD as per Nephrology Appreciate Nephrology Input Monitor electrolytes Had hemodialysis today Hypertension Continue amlodipine, hydralazine, metoprolol Monitor Chronic abdominal pain Likely Multifactorial -CT ABD:No evidence of bowel obstruction. No evidence of free air. Severe bilateral renal atrophy. Progressive moderate splenomegaly. Subtle hypodense splenic lesions persist. Suspected hepatic cirrhosis. Normal appendix. No evidence of acute diverticulitis. No evidence of bowel obstruction. No evidence of free air. Mild submucosal fat hypertrophy within the colon. This is nonspecific finding which could represent the sequela of chronic inflammatory bowel disease. Pain control Severe protein calorie malnutrition BMI 18 Dietitian consulted CAD/PVD As per records Continue on statin Breast cancer S/P surgery NSCLC S/P Radiation Follows with [facility] [place] radiation oncology Chronic thrombocytopenia Monitor Platelets Hypothyroidism Normal TSH Continue levothyroxine H/O Gastroparesis H/O Pulmonary vasculitis Chronic anemia Past tobacco abuse Continue home meds DVT Px: Heparin SQ Code Status Full code Disposition PT/OT prior to discharge Admission and Anticipated Discharge Date Admission Date: February 12, 2021 Subjective Patient is seen and examined Having Hemodialysis during my encounter No new complaints States having a dyspneic episode prior to HD Less cough today Denies chest pain, dizziness, nausea, vomiting Review of Systems Review of Systems: All systems reviewed & are unremarkable except as noted in HPI & below Physical Exam Physical Exam: Physical Exam: Vitals signs as noted above General Appearance:Thin, frail, Chronic ill appearing, no apparent distress Head: normocephalic, Atraumatic Eyes: normal inspection, EOMI Neck: supple, Trachea midline Respiratory/Chest: Decreased breath sounds, CTA Cardiovascular: S1, S2, No murmur Abdomen/GI:Soft, Non tender, Bowel sounds present Extremities/Musculoskeletal:normal inspection, no edema Neurologic/Psych:AAOX3, grossly no focal neurological deficits Skin: normal color, warm Results & Data Results & Data ([facility]) Vital Signs (Past 12 Hours) Vital Signs Temp Pulse Pulse Pulse Resp BP BP 02/14/21 15:17 37.0 C 74 16 114/52 L 02/14/21 14:57 76 02/14/21 13:27 36.5 C 73 18 130/57 L 02/14/21 12:55 36.4 C L 63 124/55 L 02/14/21 12:45 70 109/52 L 02/14/21 12:20 71 112/50 L 02/14/21 12:00 67 106/51 L 02/14/21 11:40 62 115/52 L 02/14/21 11:20 64 119/53 L 02/14/21 11:00 67 117/56 L 02/14/21 10:40 61 133/55 L 02/14/21 10:20 64 115/51 L 02/14/21 10:00 65 113/57 L 02/14/21 09:47 74 20 02/14/21 09:40 72 95/50 L 02/14/21 09:14 70 115/56 L 02/14/21 09:10 36.4 C L 75 02/14/21 08:00 66 02/14/21 07:37 36.4 C L 66 17 120/50 L 02/14/21 07:21 69 02/14/21 03:48 36.5 C 70 18 123/52 L Pulse Ox 02/14/21 15:17 98 02/14/21 14:57 02/14/21 13:27 99 02/14/21 12:55 02/14/21 12:45 02/14/21 12:20 02/14/21 12:00 02/14/21 11:40 02/14/21 11:20 02/14/21 11:00 02/14/21 10:40 02/14/21 10:20 02/14/21 10:00 02/14/21 09:47 98 02/14/21 09:40 02/14/21 09:14 02/14/21 09:10 02/14/21 08:00 02/14/21 07:37 99 02/14/21 07:21 02/14/21 03:48 99 Laboratory Results Short CBC 02/14/21 Range/Units 06:30 Hgb 7.8 L (12.0-16.0) g/dL Hct 26.5 L (37-47) % BMP 02/14/21 06:30 Sodium 133 L Potassium 5.4 H Chloride 100 Carbon Dioxide 23 BUN 78 H D Creatinine 6.43 H* D Glucose 100 H Calcium 7.1 L
[2021-02-14] MEDS: SENNA 8.6 MG TAB PO SCH (20:38)
[2021-02-14] MEDS: SIMVASTATIN 20 MG TAB PO SCH (20:38)
[2021-02-15] MEDS: LEVOTHYROXINE SODIUM 75 MCG TABLET PO SCH (05:45)
[2021-02-15 07:58] LABS: BUN Creatinine Ratio 9.7 (10-20); Calcium 6.8 mg/dl (8.5-10.1); Creatinine Clr Calc Pharmacy 9.1 ml/min; Est GFR (African American) 12.1 ml/min; Est GFR (Non-African American) 10.5 ml/min; Magnesium 1.8 mg/dl (1.8-2.4); Potassium 4.4 mmol/L (3.5-5.1)
[2021-02-15 08:04] LABS: Hematocrit (blood only) 28.5 % (37-47); Hemoglobin 8.7 g/dL (12.0-16.0); Mean Corpuscular Hemoglobin 25.5 pg (25-34); Mean Corpuscular Hgb Conc 30.5 g/dL (32-36); Mean Corpuscular Volume 83.6 fL (80-100); Mean Platelet Volume 10.5 fL (7.4-10.4); Nucleated RBC # (auto) 0.04 K/uL (0-0); Nucleated RBC % (auto) 0.4 %; Platelet Count 104 K/uL (130-400); RDW Coefficient of Variation 18.5 % (11.5-14.5); RDW Standard Deviation 57.1 fL (36.4-46.3); Red Blood Count 3.41 M/uL (4.2-5.4); White Blood Count 10.48 K/uL (4.8-10.8)
[2021-02-15] MEDS: DOXYCYCLINE HYCLATE 100 MG CAP PO SCH ×2 (08:40→21:27)
[2021-02-15] MEDS: CALCIUM ACETATE 667 MG CAP/TAB PO SCH ×3 (08:40→17:11)
[2021-02-15] MEDS: predniSONE 20 MG TAB PO SCH (08:40)
[2021-02-15] MEDS: METOPROLOL SUCC 25MG EXT REL TAB PO SCH (08:41)
[2021-02-15] MEDS: PANTOprazole 40 MG TAB PO SCH (08:41)
[2021-02-15] MEDS: amLODIPine BESYLATE 5 MG TAB PO SCH (08:41)
[2021-02-15] MEDS: hydrALAZINE HCL 25 MG TAB PO SCH ×3 (08:41→21:25)
--- NOTE | 2021-02-15 10:07 | Gastrointestinal Consultation ---
Date of Consultation February 15, 2021 Assessment & Plan (1) Acute hypoxemic respiratory failure: (2) Anemia: (3) Heme positive stool: Pt is a 61 yo female admitted for acute on chronic respiratory failure, pneumonitis suspected aspiration seen for anemia, hemoccult positive w/o cheryl GI bleeding signs. She has multiple chronic illnesses but notable ESRD on HD and cirrhosis. CT w signs of mild fat hypertrophy in colon ? chronic IBD. Last Colonoscopy in 2013 showed int hemorrhoids. She's been getting regular EGDs for gastric polyp surveillance. Next scheduled on 02/22/2021. - Monitor blood ct and transfuse prn - Anemia workup - Diet per ST recs, aspiration precaution - Will try to arrange EGD and colonoscopy to be done together for anemia eval in outpt setting once her respiratory issues are resolved. Supervising Physician Co-Signing Physician Notes I performed a history and physical examination of the patient today, including specifically on physical exam - soft abdomen. I have discussed the patient's management with the advanced practitioner. Please refer to the nurse practitioner's note for the documented findings and plan of care. EGD and colonoscopy as OP as there is no overt ongoing GI bleeding now. Recall GI if needed. History of Present Illness Reason for Consultation: Anemia, hemoccult positive Requesting Physician: Dr. Janes Sal Attending Physician: Dr. Obie Hoyt History of Present Illness Pt is a 60 y/o female w PMHx of COPD, HTN, CHF, non ischemic cardiomyopathy, ESRD on HD, breast ca s/p sx, NSCL ca s/p radiation, GERD, gastroparesis, hypot hyroidism, cirrhosis, multiple hyperplastic gastric polyps w hx of resections, who is currently admitted w acute on chronic respiratory failure, pneumonitis w suspected aspiration. She did pass her swallow eval. She is seen today as noted to be anemic - baseline Hgb 9-10, currently between 7-8. She did have a positive hemoccult. She reports some discomfort on RUQ area but no n/v. Bowels move regul steff - stools can be darker in color but she denies any cheryl rectal bleeding or bloody stools. Not on NSAIDs, or anticoagulants, antiplatelets. She is not on iron supplements. CT abd/pelvis w/o contrast: 1. No evidence of bowel obstruction. No evidence of free air 2. Severe bilateral renal atrophy 3. Progressive moderate splenomegaly. Subtle hypodense splenic lesions persist 4. Suspected hepatic cirrhosis 5. Normal appendix. No evidence of acute diverticulitis 6. No evidence of bowel obstruction. No evidence of free air 7. Mild submucosal fat hypertrophy within the colon. This is nonspecific finding which could represent the sequela of chronic inflammatory bowel disease. 8. Small bilateral pleural effusions with hyperdense lower lobe atelectatic change. Left-sided pleural calcification. Chronic hyperdense consolidated right middle lobe. Equivocal slight increased density with 34 mm right lower lobe spiculated lesion. Interlobular septal edema. She is currently scheduled for outpt EGD on 02/22/[address] Paulson for gastric polyp surveillance Allergies Allergy/AdvReac Type Severity Reaction Status Date / Time atropine Allergy Severe Dyspnea Verified 02/12/21 07:07 linezolid Allergy Severe Thrombocyto Verified 02/12/21 07:07 penia naproxen Allergy Severe Facial Verified 02/12/21 07:07 edema dipyridamole Allergy Intermediate "Bad Verified 02/12/21 07:07 reaction" per records vancomycin Allergy Intermediate Rash/tommy Verified 02/12/21 07:07 syndrome maprotiline Allergy Unknown Unknown Unverified 02/12/21 07:07 valacyclovir [From Valtrex] Allergy Unknown Unknown Unverified 02/12/21 07:07 aspirin AdvReac Intermediate Abdominal Verified 02/12/21 07:07 cramping salicylates AdvReac Unknown Unknown Unverified 02/12/21 07:07 Home Medications Medication Instructions Recorded Confirmed Type albuterol sulfate 2.5 mg INHALATION DIRECTED PRN 11/02/18 02/12/21 History calcium acetate(phosphat bind) 667 mg PO TIDM 11/02/18 02/12/21 History hydralazine 25 mg PO TID 11/02/18 02/12/21 History levothyroxine 75 mcg PO DAILYBB 11/02/18 02/12/21 History simvastatin 20 mg PO HS 11/02/18 02/12/21 History amlodipine 10 mg PO QAM 07/14/19 02/12/21 History pantoprazole 40 mg PO QAM 07/14/19 02/12/21 History metoprolol succinate 25 mg PO QAM 11/19/19 02/12/21 History ondansetron HCl [Zofran] 4 mg PO Q6H PRN #6 tab 07/23/20 02/12/21 Rx aprepitant [Emend] 80 mg PO DAILY 08/14/20 02/12/21 History Patient History Medical History Anemia of chronic renal failure AV fistula LUE Breast cancer s/p chemo/xrt CAD (coronary artery disease) widely patent coronary anatomy with only minor luminal irregularities suggesting mild CAD per 2014 cardiac cath Cirrhosis per records COPD (chronic obstructive pulmonary disease) Acute exacerbation during recent admission. Hospitalist progress note 08/08 notes "resolved respiratory status at baseline." ESRD (end stage renal disease) dialysis Thursday//Thursday ([place]) GERD (gastroesophageal reflux disease) History of abdominal paracentesis During admission -08/2020 History of recent hospitalization treated inpatient [facility] for peritoneal infection 07/30 - 08/10 Hyperlipidemia Hypertension Hypothyroidism Non-ischemic cardiomyopathy Hx. EF 55-60% on most recent echo 04/2019 Non-small cell lung cancer (NSCLC) dx 04/2019; s/p XRT; RML On home oxygen therapy 2L O2 HS Poor historian unable to recall specifics about her past medical history. alert and oriented x3. Splenomegaly, not elsewhere classified w/ multiple hypodense masses stable on fall 2019 imaging and present since at least 2005 Thrombocytopenia chronic, 2/2 cirrhosis. Surgical History H/O partial thyroidectomy GOITER History of bronchoscopy History of cardiac cath 2013- NO STENTS History of colonoscopy History of esophagogastroduodenoscopy (EGD) History of tooth extraction Hx of lumpectomy LEFT S/P arteriovenous (AV) fistula creation S/P laparoscopic cholecystectomy 06/2020 [facility] Family History Other Family history non-contributory No family history of adverse response to anesthesia Social History Smoking Status: Former smoker Tobacco Type: Cigarettes Smoking End Date: 2009; Second Hand Exposure: No; Tobacco Cessation Education Requested by Patient: No Hx Alcohol Use: No Hx Substance Use: No Preferred Language: Burmese Communication Ability: Effective Mitochondrial Disorders Counselor Required: No Beliefs That Will Affect Care: None marital status: Current Living Situation: Spouse current occupational status: disabled Other Information That Helps Us Care for You: No Feels Safe at Home: Yes Safety Concerns: Feels Safe At This Time Assistive Devices: None Review of Systems Review of Systems: All systems reviewed & are unremarkable except as noted in HPI & below Physical Exam Constitutional: + thin, well groomed, cooperative and comfortable Eyes: PERRL, conjunctivae normal, anicteric sclerae ENMT: external ear and nose normal, oropharynx normal Respiratory: no respiratory distress and does not use accessory muscles Auscultation: + diminished lung sounds Cardiovascular: RRR, no murmur, no edema Gastrointestinal (Abdomen): normal bowel sounds, soft, nontender, no hepatosplenomegaly Skin: no rashes, warm and dry no jaundice Psychiatric: A+Ox3, euthymic affect Lymphatic: no lymphedema Results & Data ([facility]) Vital Signs (Past 12 Hours) Vital Signs Temp Pulse Pulse Pulse Resp BP Pulse Ox 02/15/21 08:38 36.5 C 66 18 139/52 L 100 02/15/21 07:21 66 02/15/21 05:44 36.4 C L 76 18 166/61 H 99 02/15/21 03:49 36.6 C 83 18 97/61 L 91 02/14/21 22:16 36.6 C 69 18 138/54 L 100
[2021-02-15] MEDS: COLESTIPOL HCL 1 GM TAB PO SCH ×2 (10:16→21:26)
[2021-02-15] MEDS: cefTRIAXone SODIUM 1,000 MG in DEXTROSE 5% 50 ML IV SCH (13:06)
--- NOTE | 2021-02-15 17:35 | Hospitalist Progress Note ---
Date of Service February 15, 2021 Assessment & Plan (1) Acute hypoxemic respiratory failure: Acute on chronic respiratory failure with hypoxia Chronic oxygen dependency--on 2 L nasal cannula at baseline Acute COPD exacerbation Suspected pneumonitis likely due to Aspiration --CT Chest:Cardiomegaly with extensive intralobular septal thickening with intermixed groundglass opacities. A similar pattern of disease has been present on studies dating back to at least 2016. Chronic pulmonary edema, pulmonary hemorrhage or a nonspecific infectious or inflammatory pneumonitis remain the differential considerations. Small pleural effusions with dependent bibasilar atelectasis. Redemonstration of numerous irregular hyperdense foci within the lung bases which is nonspecific however favors aspirated material. Chronic hyperdense consolidation with volume loss of the right middle lobe. The right m iddle lobe bronchi are opacified. Correlation with follow-up bronchoscopy recommended. Hyperdense mediastinal and hilar adenopathy redemonstrated. -Volume status managed through dialysis -Continue bronchodilators, empiric antibiotics, prednisone to complete 5 day course Appreciate critical care input Continue Aspiration precautions Saturating well on 2 L of supplemental Slowly improving Esophageal Dysmotility Video Swallow: No aspiration identified. Multiple episodes of premature spillover to the level of the pyriform sinuses. Appreciate speech therapy recommendations Continue Ciprodex Needs GI follow-up as outpatient Acute on chronic anemia Positive FOBT Anemia work up pending Hold heparin Appreciate GI input Monitor CBC Needs EGD, colonoscopy as outpatient Hyperkalemia Secondary to ESRD Fluid Overload HD as per Nephrology Appreciate Nephrology Input Monitor electrolytes Had hemodialysis Resolved Hypertension Continue amlodipine, hydralazine, metoprolol Monitor Chronic abdominal pain Likely Multifactorial -CT ABD:No evidence of bowel obstruction. No evidence of free air. Severe bilateral renal atrophy. Progressive moderate splenomegaly. Subtle hypodense s plenic lesions persist. Suspected hepatic cirrhosis. Normal appendix. No evidence of acute diverticulitis. No evidence of bowel obstruction. No evidence of free air. Mild submucosal fat hypertrophy within the colon. This is nonspecific finding which could represent the sequela of chronic inflammatory bowel disease. Pain control Severe protein calorie malnutrition BMI 18 Dietitian consulted CAD/PVD As per records Continue on statin Breast cancer S/P surgery NSCLC S/P Radiation Follows with [facility] [place] radiation oncology Chronic thrombocytopenia Monitor Platelets Hypothyroidism Normal TSH Continue levothyroxine H/O Gastroparesis H/O Pulmonary vasculitis Chronic anemia Past tobacco abuse Continue home meds DVT Px: Heparin SQ Code Status Full code Disposition PT/OT prior to discharge Admission and Anticipated Discharge Date Admission Date: February 12, 2021 Subjective Patient is seen and examined Dyspnea much improved Mild cough present Denies chest pain, dizziness, nausea, vomiting Hb better today Review of Systems Review of Systems: All systems reviewed & are unremarkable except as noted in HPI & below Physical Exam Physical Exam: Physical Exam: Vitals signs as noted above General Appearance:Thin, frail, Chronic ill appearing, no apparent distress Head: normocephalic, Atraumatic Eyes: normal inspection, EOMI Neck: supple, Trachea midline Respiratory/Chest: Decreased breath sounds, CTA Cardiovascular: S1, S2, No murmur Abdomen/GI:Soft, Non tender, Bowel sounds present Extremities/Musculoskeletal:normal inspection, no edema Neurologic/Psych:AAOX3, grossly no focal neurological deficits Skin: normal color, warm Results & Data Results & Data ([facility]) Vital Signs (Past 12 Hours) Vital Signs Temp Pulse Pulse Pulse Resp BP Pulse Ox 02/15/21 15:55 36.8 C 78 18 148/69 H 98 02/15/21 15:07 69 02/15/21 11:59 36.5 C 66 18 125/50 L 98 02/15/21 08:38 36.5 C 66 18 139/52 L 100 02/15/21 07:21 66 02/15/21 05:44 36.4 C L 76 18 166/61 H 99 Laboratory Results Short CBC 02/15/21 Range/Units 07:02 WBC 10.48 (4.8-10.8) K/uL Hgb 8.7 L (12.0-16.0) g/dL Hct 28.5 L (37-47) % Plt Count 104 L (130-400) K/uL BMP 02/15/21 07:02 Sodium 138 Potassium 4.4 D Chloride 103 Carbon Dioxide 25 BUN 41 H Creatinine 4.26 H D Glucose 75 Calcium 6.8 L
[2021-02-15] MEDS: SIMVASTATIN 20 MG TAB PO SCH (21:26)
[2021-02-15] MEDS: SENNA 8.6 MG TAB PO SCH (21:26)
[2021-02-16] MEDS: LEVOTHYROXINE SODIUM 75 MCG TABLET PO SCH (05:48)
[2021-02-16 06:34] LABS: Hematocrit (blood only) 27.8 % (37-47); Hemoglobin 8.2 g/dL (12.0-16.0); Mean Corpuscular Hemoglobin 24.9 pg (25-34); Mean Corpuscular Hgb Conc 29.5 g/dL (32-36); Mean Corpuscular Volume 84.5 fL (80-100); Mean Platelet Volume 9.2 fL (7.4-10.4); Nucleated RBC # (auto) 0.02 K/uL (0-0); Nucleated RBC % (auto) 0.2 %; Platelet Count 143 K/uL (130-400); RDW Coefficient of Variation 18.6 % (11.5-14.5); RDW Standard Deviation 57.2 fL (36.4-46.3); Red Blood Count 3.29 M/uL (4.2-5.4); White Blood Count 7.41 K/uL (4.8-10.8)
[2021-02-16] MEDS ORDERED: SODIUM CHLORIDE 0.9% 1000ML 1,000 ML IV PRN (07:00)
[2021-02-16] MEDS ORDERED: EPOETIN ALFA 10,000 UNITS/ML VIAL IV ONE (07:00)
[2021-02-16 07:09] LABS: Folate (Folic Acid) 5.3 ng/ml (>5.38)
[2021-02-16 07:12] LABS: BUN Creatinine Ratio 10.3 (10-20); Calcium 7.1 mg/dl (8.5-10.1); Creatinine Clr Calc Pharmacy 6.7 ml/min; Est GFR (African American) 8.2 ml/min; Est GFR (Non-African American) 7.1 ml/min; Ferritin 1304.1 ng/ml (8-388); Magnesium 1.8 mg/dl (1.8-2.4); Potassium 4.2 mmol/L (3.5-5.1)
[2021-02-16] MEDS: PANTOprazole 40 MG TAB PO SCH (08:23)
[2021-02-16] MEDS: DOXYCYCLINE HYCLATE 100 MG CAP PO SCH ×2 (08:23→19:48)
[2021-02-16] MEDS: METOPROLOL SUCC 25MG EXT REL TAB PO SCH (08:23)
[2021-02-16] MEDS: predniSONE 20 MG TAB PO SCH (08:23)
[2021-02-16] MEDS: COLESTIPOL HCL 1 GM TAB PO SCH ×2 (08:23→21:55)
[2021-02-16] MEDS: CALCIUM ACETATE 667 MG CAP/TAB PO SCH ×3 (08:24→16:57)
[2021-02-16] MEDS: amLODIPine BESYLATE 5 MG TAB PO SCH (08:24)
[2021-02-16] MEDS: hydrALAZINE HCL 25 MG TAB PO SCH ×3 (08:24→19:48)
--- NOTE | 2021-02-16 14:02 | Dialysis Progress Note ---
Date of Service February 16, 2021 Assessment & Plan Admission and Anticipated Discharge Date Admission Date: February 12, 2021 Subjective Seen in dialysis. BP, AVF fine. QB and QD fine. high venous pressure. NO cramping.Less SOB now. Physical Exam Physical Exam: Physical Exam: Vitals signs as noted above General Appearance:Thin, frail, Chronic ill appearing, no apparent distress Head: normocephalic, Atraumatic Eyes: normal inspection, EOMI Neck: supple, Trachea midline Respiratory/Chest: Decreased breath sounds, CTA Cardiovascular: S1, S2, No murmur Abdomen/GI:Soft, Non tender, Bowel sounds present Extremities/Musculoskeletal:normal inspection, no edema Neurologic/Psych:AAOX3, grossly no focal neurological deficits Skin: normal color, warm A/p ESRD--HD today for 4 hrs and take 2.5 to 3 kilo off. High venous pressure and high bleeding so will schedule Angiogram as outpt. resp failure--better. Results [facility] Vital Signs (Past 12 Hours) Vital Signs Temp Pulse Pulse Pulse Resp BP BP 02/16/21 13:20 59 L 120/48 L 02/16/21 13:00 61 105/47 L 02/16/21 12:40 63 91/46 L 02/16/21 12:20 58 L 113/50 L 02/16/21 12:00 56 L 100/47 L 02/16/21 11:40 58 L 125/56 L 02/16/21 11:20 65 111/54 L 02/16/21 11:00 64 113/51 L 02/16/21 10:40 65 112/43 L 02/16/21 10:20 63 117/54 L 02/16/21 09:55 36.5 C 63 02/16/21 07:39 61 02/16/21 07:38 36.7 C 61 20 140/60 02/16/21 03:44 36.4 C L 71 16 161/66 H Pulse Ox 02/16/21 13:20 02/16/21 13:00 02/16/21 12:40 02/16/21 12:20 02/16/21 12:00 02/16/21 11:40 02/16/21 11:20 02/16/21 11:00 02/16/21 10:40 02/16/21 10:20 02/16/21 09:55 02/16/21 07:39 02/16/21 07:38 97 02/16/21 03:44 100
--- NOTE | 2021-02-16 14:16 | Hospitalist Progress Note ---
Date of Service February 16, 2021 Assessment & Plan (1) Acute hypoxemic respiratory failure: Acute on chronic respiratory failure with hypoxia resolved ,respiratory status improved to baseline Chronic oxygen dependency--on 2 L nasal cannula at baseline presented with Acute COPD exacerbation Suspected pneumonitis likely due to Aspiration --CT Chest:Cardiomegaly with extensive intralobular septal thickening with intermixed ground glass opacities. A similar pattern of disease has been present on studies dating back to at least 2016. Chronic pulmonary edema, pulmonary hemorrhage or a nonspecific infectious or inflammatory pneumonitis remain the differential considerations. Small pleural effusions with dependent bibasilar atelectasis. Redemonstration of numerous irregular hyperdense foci within the lung bases which is nonspecific however favors aspirated material. Chronic hyperdense consolidation with volume loss of the right middle lobe. The right middle lobe bronchi are opacified. Correlation with follow-up bronchoscopy recommended. Hyperdense mediastinal and hilar adenopathy redemonstrated. -Volume status managed through dialysis - Saturating well on 2 L of supplemental 02 Esophageal Dysmotility Video Swallow: No aspiration identified. Multiple episodes of premature spillover to the level of the pyriform sinuses. Appreciate speech therapy recommendations Continue Aspiration precautions Needs GI follow-up as outpatient Acute on chronic anemia( anemia of chronic disease ) Positive FOBT Appreciate GI input Needs EGD, colonoscopy as outpatient Hyperkalemia resolved after dialysis HD as per Nephrology Appreciate Nephrology Input Hypertension Continue amlodipine, hydralazine, metoprolol Chronic abdominal pain Likely Multifactorial -CT ABD:No evidence of bowel obstruction. No evidence of free air. Severe bilateral renal atrophy. Progressive moderate splenomegaly. Subtle hypodense splenic lesions persist. Suspected hepatic cirrhosis. Normal appendix. No evidence of acute diverticulitis. No evidence of bowel obstruction. No evidence of free air. Mild submucosal fat hypertrophy within the colon. This is nonspecific finding which could represent the sequela of chronic inflammatory bowel disease. Pain control Severe protein calorie malnutrition BMI 18 Dietitian consulted CAD/PVD As per records Continue on statin Breast cancer S/P surgery NSCLC S/P Radiation [place] [facility] [place] Chronic thrombocytopenia Monitor Platelets Hypothyroidism Normal TSH Continue levothyroxine H/O Gastroparesis H/O Pulmonary vasculitis Chronic anemia Past tobacco abuse Continue home meds DVT Px: Heparin SQ Code Status Full code Disposition plan to discharge home when medically stable Admission and Anticipated Discharge Date Admission Date: February 12, 2021 Subjective Patient is seen and examined doing much better today appetite, energy has improved able to be OOB to chair no complain of Shortness of breath or orthopnea minimum cough , no fever or chills Review of Systems Review of Systems: All systems reviewed & are unremarkable except as noted in Subjective Physical Exam Physical Exam: Physical exam: General: No acute distress, alert awake oriented x3 HEENT: PERRLA, EOMI, Heart: Regular S1-S2, no carotid bruit, no JVD, no lower extremity edema Lungs: Clear to auscultate, no wheeze or rales Abdomen: Soft nontender, no organomegaly Extremity: No cyanosis, no deformity, Neuro: No focal neurological deficit normal speech, Psych: Alert awake oriented x3, normal affect Results & Data Results & Data ([facility]) Vital Signs (Past 12 Hours) Vital Signs Temp Pulse Pulse Pulse Resp BP BP 02/16/21 13:40 36.5 C 68 155/72 H 02/16/21 13:20 59 L 120/48 L 02/16/21 13:00 61 105/47 L 02/16/21 12:40 63 91/46 L 02/16/21 12:20 58 L 113/50 L 02/16/21 12:00 56 L 100/47 L 02/16/21 11:40 58 L 125/56 L 02/16/21 11:20 65 111/54 L 02/16/21 11:00 64 113/51 L 02/16/21 10:40 65 112/43 L 02/16/21 10:20 63 117/54 L 02/16/21 09:55 36.5 C 63 02/16/21 07:39 61 02/16/21 07:38 36.7 C 61 20 140/60 02/16/21 03:44 36.4 C L 71 16 161/66 H Pulse Ox 02/16/21 13:40 02/16/21 13:20 02/16/21 13:00 02/16/21 12:40 02/16/21 12:20 02/16/21 12:00 02/16/21 11:40 02/16/21 11:20 02/16/21 11:00 02/16/21 10:40 02/16/21 10:20 02/16/21 09:55 02/16/21 07:39 02/16/21 07:38 97 02/16/21 03:44 100
[2021-02-16] MEDS: cefTRIAXone SODIUM 1,000 MG in DEXTROSE 5% 50 ML IV SCH (14:31)
[2021-02-16] MEDS: SIMVASTATIN 20 MG TAB PO SCH (19:48)
[2021-02-16] MEDS: SENNA 8.6 MG TAB PO SCH (19:49)
[2021-02-17] MEDS: LEVOTHYROXINE SODIUM 75 MCG TABLET PO SCH (05:45)
[2021-02-17] MEDS: DOXYCYCLINE HYCLATE 100 MG CAP PO SCH ×2 (07:46→21:16)
[2021-02-17] MEDS: amLODIPine BESYLATE 5 MG TAB PO SCH (07:46)
[2021-02-17] MEDS: PANTOprazole 40 MG TAB PO SCH (07:46)
[2021-02-17] MEDS: CALCIUM ACETATE 667 MG CAP/TAB PO SCH ×3 (07:46→16:39)
[2021-02-17] MEDS: METOPROLOL SUCC 25MG EXT REL TAB PO SCH (07:47)
[2021-02-17] MEDS: hydrALAZINE HCL 25 MG TAB PO SCH ×3 (07:47→20:26)
[2021-02-17] MEDS: COLESTIPOL HCL 1 GM TAB PO SCH ×2 (10:57→22:09)
[2021-02-17] MEDS: cefTRIAXone SODIUM 1,000 MG in DEXTROSE 5% 50 ML IV SCH (13:36)
--- NOTE | 2021-02-17 19:54 | Hospitalist Progress Note ---
Date of Service February 17, 2021 Assessment & Plan (1) Acute hypoxemic respiratory failure: Acute on chronic respiratory failure with hypoxia resolved ,respiratory status improved to baseline Chronic oxygen dependency--on 2 L nasal cannula at baseline presented with Acute COPD exacerbation Suspected pneumonitis likely due to Aspiration --CT Chest:Cardiomegaly with extensive intralobular septal thickening with intermixed ground glass opacities. A similar pattern of disease has been present on studies dating back to at least 2016. Chronic pulmonary edema, pulmonary hemorrhage or a nonspecific infectious or inflammatory pneumonitis remain the differential considerations. Small pleural effusions with dependent bibasilar atelectasis. Redemonstration of numerous irregular hyperdense foci within the lung bases which is nonspecific however favors aspirated material. Chronic hyperdense consolidation with volume loss of the right middle lobe. The right middle lobe bronchi are opacified. Correlation with follow-up bronchoscopy recommended. Hyperdense mediastinal and hilar adenopathy redemonstrated. -Volume status managed through dialysis - Saturating well on 2 L of supplemental 02 Esophageal Dysmotility Video Swallow: No aspiration identified. Multiple episodes of premature spillover to the level of the pyriform sinuses. Appreciate speech therapy recommendations Continue Aspiration precautions Needs GI follow-up as outpatient Acute on chronic anemia( anemia of chronic disease ) Positive FOBT Appreciate GI input Needs EGD, colonoscopy as outpatient Hyperkalemia resolved after dialysis HD as per Nephrology Appreciate Nephrology Input Hypertension Continue amlodipine, hydralazine, metoprolol Chronic abdominal pain Likely Multifactorial -CT ABD:No evidence of bowel obstruction. No evidence of free air. Severe bilateral renal atrophy. Progressive moderate splenomegaly. Subtle hypodense splenic lesions persist. Suspected hepatic cirrhosis. Normal appendix. No evidence of acute diverticulitis. No evidence of bowel obstruction. No evidence of free air. Mild submucosal fat hypertrophy within the colon. This is nonspecific finding which could represent the sequela of chronic inflammatory bowel disease. Pain control tolerating diet no active issue now Severe protein calorie malnutrition BMI 18 Dietitian consulted CAD/PVD As per records Continue on statin Breast cancer S/P surgery NSCLC S/P Radiation Follows with [facility] [place] Chronic thrombocytopenia Monitor Platelets Hypothyroidism Normal TSH Continue levothyroxine H/O Gastroparesis H/O Pulmonary vasculitis Chronic anemia Past tobacco abuse Continue home meds DVT Px: Heparin SQ Code Status Full code Disposition plan to discharge home tomorrow Admission and Anticipated Discharge Date Admission Date: February 12, 2021 Subjective Patient is seen and examined doing well complains of mid abdominal pain ( chronic ) -has been ongoing intermittently for years no nausea or vomiting appettite is fair no complain of Shortness of breath or orthopnea minimum cough , no fever or chills Review of Systems Review of Systems: All systems reviewed & are unremarkable except as noted in Subjective Physical Exam Physical Exam: Physical exam: General: No acute distress, alert awake oriented x3 HEENT: PERRLA, EOMI, Heart: Regular S1-S2, no carotid bruit, no JVD, no lower extremity edema Lungs: Clear to auscultate, no wheeze or rales Abdomen: soft /distended /mild tendernss on mid abdomen , no rebound Extremity: No cyanosis, no deformity, Neuro: No focal neurological deficit normal speech, Psych: Alert awake oriented x3, normal affect Results & Data Results & Data ([facility]) Vital Signs (Past 12 Hours) Vital Signs Temp Pulse Pulse Pulse Resp BP Pulse Ox 02/17/21 19:24 36.7 C 61 18 125/54 L 99 02/17/21 17:24 58 L 18 127/48 L 99 02/17/21 15:35 37.0 C 67 20 137/52 L 100 02/17/21 11:59 36.5 C 60 18 120/53 L 100 02/17/21 08:00 57 L
[2021-02-17] MEDS: SENNA 8.6 MG TAB PO SCH (20:52)
[2021-02-17] MEDS: HEPARIN SOD 5,000 UNIT/0.5 ML VIAL SQ SCH (20:54)
[2021-02-17] MEDS: SIMVASTATIN 20 MG TAB PO SCH (21:17)
[2021-02-18] MEDS: LEVOTHYROXINE SODIUM 75 MCG TABLET PO SCH (06:03)
[2021-02-18] MEDS: amLODIPine BESYLATE 5 MG TAB PO SCH (08:06)
[2021-02-18] MEDS: hydrALAZINE HCL 25 MG TAB PO SCH (08:06)
[2021-02-18] MEDS: CALCIUM ACETATE 667 MG CAP/TAB PO SCH ×2 (08:06→11:59)
[2021-02-18] MEDS: METOPROLOL SUCC 25MG EXT REL TAB PO SCH (08:06)
[2021-02-18] MEDS: DOXYCYCLINE HYCLATE 100 MG CAP PO SCH (08:06)
[2021-02-18] MEDS: HEPARIN SOD 5,000 UNIT/0.5 ML VIAL SQ SCH (08:07)
[2021-02-18] MEDS: PANTOprazole 40 MG TAB PO SCH (08:07)
[2021-02-18] MEDS: COLESTIPOL HCL 1 GM TAB PO SCH (09:57)
--- NOTE | 2021-02-18 13:46 | Discharge Summary ---
Date of Service February 18, 2021 Admission HPI Per Admitting Provider History obtained from patient, family, and records. Medical history significant for chronic respiratory failure secondary to COPD/ILD on home O2, hypertension, chronic diastolic HF 2 to non-ischemic cardiomyopathy (TTE EF 55-60%, 2019), CAD/PVD as per records, ESRD on hemodialysis, breast cancer sp surgery, non-small cell lung cancer status post radiation, past tobacco abuse, GERD, gastroparesis as per records, hypothyroidism, cirrhosis, chronic anemia (baseline globin 9-10), chronic thrombocytopenia, hx pulmonary vasculitis as per records. Last confinement August 2020 for respiratory failure secondary to COPD exacerbation and SBP. Patient not feeling the last 4 days. Junky cough symptoms, shortness of breath even during Thursday dialysis session. No fluid retention as per patient. Coughing with meals/water intake as per patient. No fever, some chills as per patient. Achy left-sided pain as per patient. Patient did not want to go to the ER right away as per . At the ER, BiPAP initiated for respiratory distress. Zosyn given for pneumonia. Calcium gluconate and IV insulin for hyperkalemia. MEDICAL HISTORY: As above. Hemodialysis Thursday SURGERIES: Mastectomy, thyroidectomy, vascular procedures, back surgery. FAMILY HISTORY: Breast cancer, stroke. PERSONAL AND SOCIAL HISTORY: Past tobacco abuse. No chronic intake of alcohol. Disabled. Principal Diagnosis Acute on chronic respiratory failure -resolved COPD exacerbation End stage renal disease on dialysis Hyperkalemia chronic abdominal pain /splenomegaly Anemia Dysphagia Discharge Data Allergies Allergy/AdvReac Type Severity Reaction Status Date / Time atropine Allergy Severe Dyspnea Verified 02/12/21 07:07 linezolid Allergy Severe Thrombocyto Verified 02/12/21 07:07 penia naproxen Allergy Severe Facial Verified 02/12/21 07:07 edema dipyridamole Allergy Intermediate "Bad Verified 02/12/21 07:07 reaction" per records vancomycin Allergy Intermediate Rash/tommy Verified 02/12/21 07:07 syndrome maprotiline Allergy Unknown Unknown Unverified 02/12/21 07:07 valacyclovir [From Valtrex] Allergy Unknown Unknown Unverified 02/12/21 07:07 aspirin AdvReac Intermediate Abdominal Verified 02/12/21 07:07 cramping salicylates AdvReac Unknown Unknown Unverified 02/12/21 07:07 Consultations 02/12/21 04:56 ED Decision to Admit Stat 02/12/21 06:00 Consult Nephrology ONCE 02/12/21 07:35 Consult Car Inspector Routine 02/12/21 14:28 Consult Nephrology Routine 02/15/21 03:49 Consult Gastroenterology Routine Ordered Studies 02/12/21 04:55 CT chest diagnostic wo con Stat 02/12/21 05:52 CT abd pelvis wo con Stat 02/13/21 09:30 FL video swallow Routine Hospital Course (1) Acute hypoxemic respiratory failure: Acute on chronic respiratory failure with hypoxia resolved ,respiratory status improved to baseline Chronic oxygen dependency--on 2 L nasal cannula at baseline presented with Acute COPD exacerbation Suspected pneumonitis likely due to Aspiration --CT Chest:Cardiomegaly with extensive intralobular septal thickening with intermixed ground glass opacities. A similar pattern of disease has been present on studies dating back to at least 2016. Chronic pulmonary edema, pulmonary hemorrhage or a nonspecific infectious or inflammatory pneumonitis remain the differential considerations. Small pleural effusions with dependent bibasilar atelectasis. Redemonstration of numerous irregular hyperdense foci within the lung bases which is nonspecific however favors aspirated material. Chronic hyperdense consolidation with volume loss of the right middle lobe. The right middle lobe bronchi are opacified. Correlation with follow-up bronchoscopy recommended. Hyperdense mediastinal and hilar adenopathy redemonstrated. -Volume status managed through dialysis - Saturating well on 2 L of supplemental 02 Esophageal Dysmotility Video Swallow: No aspiration identified. Multiple episodes of premature spillover to the level of the pyriform sinuses. Appreciate speech therapy recommendations Continue Aspiration precautions Needs GI follow-up as outpatient Acute on chronic anemia( anemia of chronic disease ) Positive FOBT Appreciate GI input Needs EGD, colonoscopy as outpatient Hyperkalemia resolved after dialysis HD as per Nephrology Appreciate Nephrology Input Hypertension Continue amlodipine, hydralazine, metoprolol Chronic abdominal pain Likely Multifactorial -CT ABD:No evidence of bowel obstruction. No evidence of free air. Severe bilateral renal atrophy. Progressive moderate splenomegaly. Subtle hypodense splenic lesions persist. Suspected hepatic cirrhosis. Normal appendix. No evidence of acute diverticulitis. No evidence of bowel obstruction. No evidence of free air. Mild submucosal fat hypertrophy within the colon. This is nonspecific finding which could represent the sequela of chronic inflammatory bowel disease. Pain control tolerating diet no active issue now Severe protein calorie malnutrition BMI 18 Dietitian consulted CAD/PVD As per records Continue on statin Breast cancer S/P surgery NSCLC S/P Radiation [place] [facility] [place] Chronic thrombocytopenia Monitor Platelets Hypothyroidism Normal TSH Continue levothyroxine H/O Gastroparesis H/O Pulmonary vasculitis Chronic anemia Past tobacco abuse Continue home meds DVT Px: Heparin SQ Code Status Full code Disposition Stable to be discharged home today Total Time Total Time Spent Total Time Spent (In Minutes): 35 mins Total Time Includes: Discharge Planning and Medication Reconciliation Discharge Plan Discharge Items Patient Disposition: Home - Home Health Services Reason For Visit: RESPIRATORY FAILURE Discharge Diagnosis: Acute on chronic respiratory failure -resolved COPD exacerbation End stage renal disease on dialysis Hyperkalemia chronic abdominal pain /splenomegaly Anemia Dysphagia Condition on Discharge: Fair Activity: Resume your previous activity Non-emergency contact: Primary Care Provider Call non-emergency contact if: you have any medication questions Follow-up/Referrals: Cornell Hayes MD [Physician] - (Follow up with Gastroenterology in clinic to schedule EGD and colonoscopy for anemia ) Sascha Marr MD [Surgeon] - César Barnes MD [Outside Practitioners] - (Date & Time 02/21/2021 9:40 AM Provider Carlos Luna MD [facility] ) Diet: Dialysis Renal Addtl Attending Provider Instructions: Please take all medications as instructed on discharge list below. It is recommended that you follow-up with your primary care physician within 1-2 weeks of hospital discharge to ensure you are still doing well. Please call if you have any questions or problems. You can reach a [facility] hospitalist on duty at [facility] 24 hours a day by calling [phone] Addtl Marketing Planning Manager Provider Instructions: Follow up with Gastroenterology in clinic to schedule EGD and colonoscopy for anemia Pending Studies at Discharge: No Stand-Alone Forms: [facility], Smoking Cessation Medications and DC Order Prescriptions: Continued metoprolol succinate 25 mg Tablet Extended Release 24 Hr 25 mg PO QAM RF: 0 ondansetron HCl [Zofran] 4 mg tablet 4 mg PO Q6H PRN (Reason: nausea and vomiting) Qty: 6 RF: 0 albuterol sulfate 2.5 mg /3 mL (0.083 %) Solution For Nebulization 2.5 mg INHALATION DIRECTED PRN (Reason: Shortness Of Breath Or Wheezing) RF: 0 hydralazine 25 mg Tablet 25 mg PO TID RF: 0 calcium acetate(phosphat bind) 667 mg Tablet 667 mg PO TIDM RF: 0 levothyroxine 75 mcg Tablet 75 mcg PO DAILYBB RF: 0 simvastatin 20 mg Tablet 20 mg PO HS RF: 0 amlodipine 10 mg Tablet 10 mg PO QAM RF: 0 pantoprazole 40 mg Tablet,Delayed Release (Dr/Ec) 40 mg PO QAM RF: 0 aprepitant [Emend] 80 mg capsule 80 mg PO DAILY RF: 0 Discharge Orders: Discharge Order (Routine); Ordered 02/18/21 Ordered By: Karin Jewell Admission Data Admit Date/Time: 02/12/21 06:06 Attending Provider: Karin Jewell Admit Provider: Darell Cuello Primary Care Provider: PCP,NO Other Providers: Sascha Marr ; Janes Sal ; Darell Cuello ; Deric Putnam ; Cornell Hayes Other Interventions: Discharge Summary Assessment (RN) Last Done: 02/18/21 11:12
== END 2021-02-18 12:42 | disposition home health service (06) | DRG 189 ==
LOC: ED 04:39 → 1E 06:06 → SUATTDRO 06:06 → 1E 06:57 → 2S 14:28 → 2N 02-17 12:41

== ENCOUNTER 2021-05-20 04:21 | Inpatient (IN) ==
[2021-05-20] MEDS ORDERED: methylPREDNISolone 125 MG/2 ML VIAL IV STA (04:24)
[2021-05-20] MEDS ORDERED: ALBUT/IPRATROP 3MG/0.5MG NEB 3 ML VIAL ONE (04:30)
--- NOTE | 2021-05-20 04:41 | Emergency Department Note ---
ED Visit Note I saw this patient in conjunction with Yin Morrissey PA-C. I agree with her decision making and treatment plan. .
--- NOTE | 2021-05-20 04:50 | Emergency Department Note ---
History of Present Illness General Chief complaint: Respiratory Distress Stated complaint: RESPIRATORY DISTRESS History of Present Illness This 61 yo presents to the ER complaining of shortness of breath Location: Chest Quality: Hard of breathing Severity: Moderate Duration: past few days Timing: Started few days ago Context: Patient was concerned and came in Modifying factors: better with CPAP; worse with activity Patient did to nebulizers. She has missed dialysis. Patient is unvaccinated. She is a full code. Patient complains of shortness of breath and cough. Patient denies fevers, chest pain, abdominal pain, vomiting, diarrhea. Home Medications Medication Instructions Recorded Confirmed Type albuterol sulfate 2.5 mg INHALATION DIRECTED PRN 11/02/18 03/28/21 History hydralazine 25 mg tablet 25 mg PO TID 11/02/18 03/28/21 History levothyroxine 75 mcg tablet 75 mcg PO DAILYBB 11/02/18 03/28/21 History simvastatin 20 mg tablet 20 mg PO HS 11/02/18 03/28/21 History amlodipine 10 mg tablet 10 mg PO QAM 07/14/19 03/28/21 History pantoprazole 40 mg tablet,delayed 40 mg PO QAM 07/14/19 03/28/21 History release metoprolol succinate 25 mg 25 mg PO QAM 11/19/19 03/28/21 History tablet,extended release 24 hr ondansetron HCl 4 mg tablet 4 mg PO Q6H PRN #6 tab 07/23/20 03/28/21 Rx (Zofran) Allergies Allergy/AdvReac Type Severity Reaction Status Date / Time atropine Allergy Severe Dyspnea Verified 03/28/21 09:00 linezolid Allergy Severe Thrombocyto Verified 03/28/21 09:00 penia naproxen Allergy Severe Facial Verified 03/28/21 09:00 edema dipyridamole Allergy Intermediate "Bad Verified 03/28/21 09:00 reaction" per records vancomycin Allergy Intermediate Rash/tommy Verified 03/28/21 09:00 syndrome maprotiline Allergy Unknown Unknown Unverified 03/28/21 09:00 valacyclovir [From Valtrex] Allergy Unknown Unknown Unverified 03/28/21 09:00 aspirin AdvReac Intermediate Abdominal Verified 03/28/21 09:00 cramping salicylates AdvReac Unknown Unknown Unverified 03/28/21 09:00 Past Med/Surg History Medical History Anemia of chronic renal failure AV fistula LUE Breast cancer s/p chemo/xrt CAD (coronary artery disease) Cirrhosis per records COPD (chronic obstructive pulmonary disease) ESRD (end stage renal disease) dialysis Thursday//Thursday ([place]) GERD (gastroesophageal reflux disease) History of abdominal paracentesis Hyperlipidemia Hypertension Hypothyroidism Non-ischemic cardiomyopathy Non-small cell lung cancer (NSCLC) dx 04/2019; s/p XRT; RML On home oxygen therapy 2L O2 HS Poor historian Splenomegaly, not elsewhere classified w/ multiple hypodense masses stable on fall 2019 imaging and present since at least 2005 Thrombocytopenia chronic, 2/2 cirrhosis. Surgical History H/O partial thyroidectomy GOITER History of bronchoscopy History of cardiac cath 2013- NO STENTS History of colonoscopy History of esophagogastroduodenoscopy (EGD) History of tooth extraction Hx of lumpectomy LEFT S/P arteriovenous (AV) fistula creation S/P laparoscopic cholecystectomy 06/2020 [facility] Family History Other Family history non-contributory No family history of adverse response to anesthesia Social History Smoking Status: Former smoker Tobacco Type: Cigarettes Second Hand Exposure: No; Hx Alcohol Use: No Preferred Language: Finnish Communication Ability: Effective 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 Beliefs That Will Affect Care: None marital status: Current Living Situation: Spouse current occupational status: disabled Feels Safe at Home: Yes Assistive Devices: Nebulizer and Oxygen - at Night Review of Systems A total of 10 systems reviewed and were otherwise negative Physical Exam Vital Signs Vital Signs - 24 hr 05/20/21 04:25 05/20/21 04:43 05/20/21 05:12 Temperature 36.7 C Temperature Source Oral Pulse Rate 98 H 97 H 94 H Pulse Rate [Right Apical] Pulse Rate from SpO2 Sensor 94 H Respiratory Rate 28 H 24 27 H Respiratory Effort / Characteristics Labored Spontaneous Respiratory Depth Shallow Normal Respiratory Pattern Tachypnea Rapid/Shallow Blood Pressure 146/94 H 156/63 H Blood Pressure Mean 111 94 Blood Pressure Position Sitting Pulse Oximetry 98 100 99 Oxygen Delivery Method CPAP Fraction of Inspired Oxygen 40 Sepsis Recent Fever Within 48 Hours No Sepsis New/Unexplained Change in Mental Status N/A Sepsis Action Taken by Nursing No Action Required 05/20/21 05:34 Temperature Temperature Source Pulse Rate Pulse Rate [Right Apical] 91 H Pulse Rate from SpO2 Sensor Respiratory Rate 22 Respiratory Effort / Characteristics Spontaneous Respiratory Depth Respiratory Pattern Blood Pressure Blood Pressure Mean Blood Pressure Position Pulse Oximetry 100 Oxygen Delivery Method BiPAP Fraction of Inspired Oxygen 30 Sepsis Recent Fever Within 48 Hours Sepsis New/Unexplained Change in Mental Status Sepsis Action Taken by Nursing VITALS: Vitals are noted on the nurse's note and reviewed by myself. Vital signs hypoxic on room air but improved on's BiPAP. GENERAL: Elderly female struggling to breathe who is improved on BiPAP, SKIN: The skin was without rashes, erythema, edema, or bruising. There is no tenting of the skin. Capillary reflex less than 2 seconds. HEAD: Normocephalic atraumatic. EARS: External auditory canals clear, tympanic membranes pearly aguilar without erythema or effusion bilaterally. EYES: Pupils equal round and reactive to light and accommodation. Conjunctivae without injection, sclerae without icterus. Extraocular movements intact. NOSE: Patent, turbinates without inflammation or discharge. MOUTH: Mucous membranes moist. Pharynx without erythema or exudate. Uvula midline. Airway patent. Tongue does not deviate. NECK: Supple without nuchal rigidity. No lymphadenopathy. No thyromegaly. Cervical spine is nontender. No JVD. HEART: Regular rate and rhythm LUNGS: Diffuse inspiratory and end expiratory wheezes with bibasilar Rales. ABDOMEN: Positive bowel sounds x 4. Normal tympanic percussion. Soft, nont jaimee, without masses or organomegaly. Vera sign negative. No guarding or rebound tenderness. No CVA tenderness MUSCULOSKELETAL: No muscle atrophy, erythema, or edema noted. NEURO: Patient was alert and oriented to person place and time. Normal sensation to light and sharp touch. No focal neurological deficits. Course Administered Medications Discontinued Medications Dextrose (Dextrose 50% 50 Ml Syringe) 50 ml IV NOW ONE Stop: 05/20/21 06:01 Last Admin: 05/20/21 06:10 Dose: 50 ml Documented by: [id number] Calcium Gluconate () 1,000 mg in 60 mls @ 240 mls/hr IV NOW STA Stop: 05/20/21 05:41 Last Admin: 05/20/21 06:00 Dose: 240 mls/hr Documented by: [id number] Pantoprazole Sodium 40 mg/ (Syringe) 10 mls @ 5 mls/min IV NOW ONE Stop: 05/20/21 06:01 Last Admin: 05/20/21 06:10 Dose: 5 mls/min Documented by: [id number] Insulin Human Regular 10 units (/ Syringe) 10 mls @ 0 mls/hr IV ONE STA Stop: 05/20/21 06:05 Last Admin: 05/20/21 06:09 Dose: 1 mls/hr Documented by: [id number] Cosigned by: [id number] Insulin Human Regular (Novolin-R Insulin Per Unit Charge) Confirm Administered Dose 10 units .ROUTE .STK-MED ONE Stop: 05/20/21 06:06 Last Admin: 05/20/21 06:10 Dose: Not Given Documented by: [id number] Ipratropium Sheridan (Ipratropium [place]idan Neb Soln 0.02% 2.5 Ml Vial) 0.5 mg INH NOW STA Stop: 05/20/21 05:24 Last Admin: 05/20/21 05:33 Dose: 0.5 mg Documented by: [id number] Levalbuterol HCl (Levalbuterol 1.25mg/0.5ml Neb) 1.25 mg INH NOW STA Stop: 05/20/21 05:29 Last Admin: 05/20/21 05:33 Dose: 1.25 mg Documented by: [id number] Methylprednisolone (Methylprednisolone 125 Mg/2 Ml Vial) 125 mg IV NOW STA Stop: 05/20/21 04:25 Last Admin: 05/20/21 05:11 Dose: 125 mg Documented by: [id number] Medical Decision Making Medical Records Attestation: I reviewed the patient's medical records. Home Medications Current Medication List: was personally reviewed by me Laboratory Data Attestation: I reviewed the patient's lab results. Result diagrams: 05/20/21 05:03 05/20/21 05:03 Lab Results 05/20/21 05/20/21 05/20/21 Range/Units 04:25 04:25 05:03 WBC 15.19 H (4.8-10.8) K/uL RBC 3.69 L (4.2-5.4) M/uL Hgb 10.1 L (12.0-16.0) g/dL POC Hgb (12.0-16.0) g/dl Hct 32.8 L (37-47) % POC Hct (37-47) % MCV 88.9 (80-100) fL MCH 27.4 (25-34) pg MCHC 30.8 L (32-36) g/dL RDW Std Deviation 57.1 H (36.4-46.3) fL RDW Coeff of Dave 17.4 H (11.5-14.5) % Plt Count 125 L (130-400) K/uL MPV 9.8 (7.4-10.4) fL Immature Gran % (Auto) 0.4 % Neut % (Auto) 89.5 % Lymph % (Auto) 3.0 % [place] % (Auto) 5.9 % Eos % (Auto) 1.0 % Baso % (Auto) 0.2 % Neut # (Auto) 13.60 H (1.4-6.5) K/uL Lymph # (Auto) 0.46 L (1.2-3.4) K/uL [place] # (Auto) 0.89 H (0.11-0.59) K/uL Eos # (Auto) 0.15 (0-0.5) K/uL Baso # (Auto) 0.03 (0-0.2) K/uL Immature Gran # (Auto) 0.06 H (0.00-0.02) K/uL POC Sodium (135-144) mmol/L Sodium (136-145) mmol/L POC Potassium (3.3-5.0) mmol/L Potassium (3.5-5.1) mmol/L POC Chloride (101-112) mmol/L Chloride (98-107) mmol/L Carbon Dioxide (21-32) mmol/L POC Total CO2 (24-31) mmol/L Anion Gap (3-11) POC Anion Gap (16-25) mmol/L POC BUN (7-18) mg/dl BUN (7-18) mg/dl Creatinine (0.6-1.2) mg/dl POC Creatinine (0.6-1.3) mg/dl Est Cr Clr Drug Dosing Est GFR ( Amer) ml/min Est GFR (Non-Af Amer) ml/min BUN/Creatinine Ratio (10-20) Glucose (70-99) mg/dl POC Glucose (other) (70-99) mg/dl Calcium (8.5-10.1) mg/dl POC Ioniz Calcium Gloria (1.12-1.32) mmol/l Magnesium (1.8-2.4) mg/dl Total Bilirubin (0.2-1) mg/dl AST (15-37) U/L ALT (12-78) U/L Alkaline Phosphatase (45-117) U/L Troponin I (0-0.045) ng/ml NT-Pro-B Natriuret Pep (0-900) pg/ml Total Protein (6.4-8.2) gm/dl Albumin (3.4-5.0) gm/dl Globulin (2.5-4.0) gm/dl Albumin/Globulin Ratio (0.9-2) COVID-19 Eval Order Covid19 at [facility] SARS-CoV-2 (PCR) NEGATIVE (Negative) 05/20/21 05/20/21 Range/Units 05:03 05:06 WBC (4.8-10.8) K/uL RBC (4.2-5.4) M/uL Hgb (12.0-16.0) g/dL POC Hgb 10.2 L (12.0-16.0) g/dl Hct (37-47) % POC Hct 30 L (37-47) % MCV (80-100) fL MCH (25-34) pg MCHC (32-36) g/dL RDW Std Deviation (36.4-46.3) fL RDW Coeff of Dave (11.5-14.5) % Plt Count (130-400) K/uL MPV (7.4-10.4) fL Immature Gran % (Auto) % Neut % (Auto) % Lymph % (Auto) % [place] % (Auto) % Eos % (Auto) % Baso % (Auto) % Neut # (Auto) (1.4-6.5) K/uL Lymph # (Auto) (1.2-3.4) K/uL [place] # (Auto) (0.11-0.59) K/uL Eos # (Auto) (0-0.5) K/uL Baso # (Auto) (0-0.2) K/uL Immature Gran # (Auto) (0.00-0.02) K/uL POC Sodium 135 (135-144) mmol/L Sodium 136 (136-145) mmol/L POC Potassium 6.7 H* (3.3-5.0) mmol/L Potassium 6.9 H* (3.5-5.1) mmol/L POC Chloride 103 (101-112) mmol/L Chloride 104 (98-107) mmol/L Carbon Dioxide 21 (21-32) mmol/L POC Total CO2 22 L (24-31) mmol/L Anion Gap 11.0 (3-11) POC Anion Gap 17.0 (16-25) mmol/L POC BUN 53 H (7-18) mg/dl BUN 56 H (7-18) mg/dl Creatinine 10.10 H* (0.6-1.2) mg/dl POC Creatinine 10.6 H* (0.6-1.3) mg/dl Est Cr Clr Drug Dosing Not Reportable Est GFR ( Amer) 4.3 ml/min Est GFR (Non-Af Amer) 3.7 ml/min BUN/Creatinine Ratio 5.6 L (10-20) Glucose 129 H (70-99) mg/dl POC Glucose (other) 131 H (70-99) mg/dl Calcium 7.2 L (8.5-10.1) mg/dl POC Ioniz Calcium Gloria 0.90 L (1.12-1.32) mmol/l Magnesium 2.0 (1.8-2.4) mg/dl Total Bilirubin 0.8 (0.2-1) mg/dl AST 18 (15-37) U/L ALT 9 L (12-78) U/L Alkaline Phosphatase 160 H (45-117) U/L Troponin I < 0.015 (0-0.045) ng/ml NT-Pro-B Natriuret Pep 59009 H (0-900) pg/ml Total Protein 6.2 L (6.4-8.2) gm/dl Albumin 2.5 L (3.4-5.0) gm/dl Globulin 3.7 (2.5-4.0) gm/dl Albumin/Globulin Ratio 0.7 L (0.9-2) COVID-19 Eval Order SARS-CoV-2 (PCR) (Negative) Imaging Data Attestation: I personally reviewed and interpreted this imaging study as follows: MDM Narrative Prior records/ancillary studies reviewed. Triage Nursing notes reviewed. Additional history obtained from EMS The patient's history was concerning for respiratory difficulties. Differential diagnosis: Etiologies such as infections, reactive airway disease, pneumonia, pneumothorax, COPD, CHF, cardiac ischemia, pulmonary embolism, musculoskeletal, gastrointestinal, as well as others were entertained. Physical examination: As above. ER treatment provided: An order was placed for continuous cardiac monitoring. The monitor shows a rate of 60-150 with a sinus rhythm. BiPAP, Solu-Medrol, nebulizer On reassessment the patient felt better. Diagnostic interpretation by me: The electrocardiogram was ordered for dyspnea EKG: Poor baseline, normal sinus, T wave inversions in the anterior leads, rate of 95, impression normal sinus rhythm with T wave inversions interpreted by myself I think arrhythmia is unlikely. EKG shows normal sinus rhythm with no interval abnormalities such as QT prolongation or WPW. There are no findings to suggest Brugada syndrome. Cardiac monitoring in the emergency department reveals no tachycardic or bradycardic dysrhythmia. Hypertrophic cardiomyopathy was considered but there are no clear historical elements pointing toward this. EKG is not suggestive. The QRS voltage is not extremely large and there are no suggestive Q waves. The labs revealed elevated creatinine. Elevated potassium. Leukocytosis ABG reviewed Imaging studies: Chest x-ray fluid overload per my interpretation. Consultation: A consultation was placed with the hospitalist. The case was discussed and diagnostics were reviewed. The patient was evaluated in the ER for further treatment. I spoke to Dr. Moseley per the request of the hospitalist and states they can do dialysis this morning at 7 AM. Labs and case was reviewed with her. This appears to be consistent with acute respiratory failure with COPD and fluid overload who is on dialysis from end-stage renal disease and noncompliant. Patient was immediate placed on BiPAP. She is medicated as above. Medicine and nephrology were consulted. She will be evaluated and admitted. By the evaluation outlined above emergent etiologies such as cardiac ischemia, pulmonary embolism, reactive airway disease pneumothorax, musculoskeletal, as well as others were deemed relatively unlikely. The pt informed about the findings as listed above. All questions were answered and pleased with the treatment. Patient is a full code. The chart was completed utilizing [employer] Speech voice recognition software. Grammatical errors, random word insertions, pronoun errors, and incomplete sentences are an occassional consequence of this system due to software limitations, ambient noise, and hardware issues. Any formal questions or concerns about the content, text, or information contained within the body of this dictation should be directly addressed to the physician respiratory therapy assistant for clarification. Impression & Plan Acute respiratory failure, SBP (spontaneous bacterial peritonitis), Hyperkalemia Discharge Plan Visit Data Chief Complaint: Respiratory Distress Stated Complaint: RESPIRATORY DISTRESS ED Provider: Mayra Benton ED Midlevel Provider: Ceci Morrissey Discharge Problem: Acute respiratory failure, SBP (spontaneous bacterial peritonitis), Hyperkalemia Patient Disposition: Admitted As Inpatient Condition: Fair Forms Stand Alone Forms: [facility] [employer] Prescriptions Prescriptions: No Action metoprolol succinate 25 mg Tablet Extended Release 24 Hr 25 mg PO QAM RF: 0 ondansetron HCl [Zofran] 4 mg tablet 4 mg PO Q6H PRN (Reason: nausea and vomiting) Qty: 6 RF: 0 albuterol sulfate 2.5 mg /3 mL (0.083 %) Solution For Nebulization 2.5 mg INHALATION DIRECTED PRN (Reason: Shortness Of Breath Or Wheezing) RF: 0 hydralazine 25 mg Tablet 25 mg PO TID RF: 0 levothyroxine 75 mcg Tablet 75 mcg PO DAILYBB RF: 0 simvastatin 20 mg Tablet 20 mg PO HS RF: 0 amlodipine 10 mg Tablet 10 mg PO QAM RF: 0 pantoprazole 40 mg Tablet,Delayed Release (Dr/Ec) 40 mg PO QAM RF: 0 Referrals Referrals: César Barnes MD [Primary Care Provider] - Discharge Problem: Acute respiratory failure Qualifiers: Respiratory failure complication: unspecified whether with hypoxia or hyp ercapnia Qualified Code(s): J96.00 - Acute respiratory failure, unspecified whether with hypoxia or hypercapnia
[2021-05-20 05:14] LABS: Basophils # (auto) 0.03 K/uL (0-0.2); Basophils % (auto) 0.2 %; Eosinophils # (auto) 0.15 K/uL (0-0.5); Hematocrit (blood only) 32.8 % (37-47); Hemoglobin 10.1 g/dL (12.0-16.0); Immature Granulocytes # (auto) 0.06 K/uL (0.00-0.02); Immature Granulocytes % (auto) 0.4 %; Lymphocytes # (auto) 0.46 K/uL (1.2-3.4); Mean Corpuscular Hemoglobin 27.4 pg (25-34); Mean Corpuscular Hgb Conc 30.8 g/dL (32-36); Mean Corpuscular Volume 88.9 fL (80-100); Mean Platelet Volume 9.8 fL (7.4-10.4); Monocytes # (auto) 0.89 K/uL (0.11-0.59); Monocytes % (auto) 5.9 %; Neutrophils % (auto) 89.5 %; Platelet Count 125 K/uL (130-400); RDW Coefficient of Variation 17.4 % (11.5-14.5); RDW Standard Deviation 57.1 fL (36.4-46.3); Red Blood Count 3.69 M/uL (4.2-5.4); White Blood Count 15.19 K/uL (4.8-10.8)
[2021-05-20 05:20] LABS: iSTAT Creatinine 10.6 mg/dl (0.6-1.3); iSTAT Hemoglobin 10.2 g/dl (12.0-16.0); iSTAT Ionized Calcium 0.9 mmol/l (1.12-1.32); iSTAT Potassium 6.7 mmol/L (3.3-5.0)
[2021-05-20] MEDS ORDERED: IPRATROPIUM BROMIDE NEB SOLN 0.02% 2.5 ML VIAL INH STA (05:23)
[2021-05-20] MEDS ORDERED: CALCIUM GLUCONATE 10% 1,000 MG in SODIUM CHLORIDE 0.9% 50 ML IV STA (05:23)
[2021-05-20] MEDS ORDERED: XOPENEX/ATROVENT 1.25mg/0.5MG NEB COMBO NEB STA (05:23)
[2021-05-20] MEDS ORDERED: CALCIUM GLUCONATE 1,000 MG/60 ML BAG IV STA (05:27)
[2021-05-20] MEDS ORDERED: LEVALBUTEROL 1.25MG/0.5ML NEB INH STA (05:28)
--- NOTE | 2021-05-20 05:48 | History & Physical Report ---
Date of Service May 20, 2021 Assessment & Plan (1) Acute hypoxemic respiratory failure: Plan: Acute hypoxemic respiratory failure: Acute on chronic Chronic respiratory failure secondary to COPD/ILD on home O2 Multifactorial : Cardiorenal syndrome, history diastolic dysfunction, ESRD on HD COPD/ILD exacerbation secondary to HCAP (possible sepsis given elevated procalcitonin) Hyperkalemia secondary to ESRD hypertension, slightly elevated secondary to illness/discomfort Abdominal pain hx gastroparesis Recurrent UGIB History gastric polyps on recent EGD Hemoglobin better than baseline hx CAD/PVD as per records breast cancer sp surgery, chemoradiation NSCLC status post radiation, hx pulmonary vasculitis as per records chronic thrombocytopenia secondary to cirrhosis Chronic anemia, hemoglobin better than baseline Past tobacco abuse Okay for PCU as per ICU provider (ICU provider earlier requested to evaluate patient for ICU eligibility given critical illness.) BiPAP Calcium gluconate, regular insulin for hyperkalemia Nephrology consultation Re: Emergent dialysis (ER provider already in touch with Dr. Moseley.) CS, Doxycycline, Zosyn for HCAP Steroid course, nebs RTC CT chest Re: Hemoptysis May need Pulmonary consultation pending CT chest results IV PPI for recurrent UGIB CT abdomen pelvis RE abdominal pain with GI bleed GI consult Re: UGI B Trend H&H, transfuse PRBC if hemoglobin less than 8 and or for symptomatic anemia DVT prophylaxis. SCDs RE thrombocytopenia Full code Patient requesting updates from providers. Mr. Peterson Macedo, contact #[phone]. Total critical time was 50 minutes. Text document was generated using [employer] voice recognition software. It may contain grammatical or spelling errors. Kindly contact undersigned for clarification of any documentation item in question. History of Present Illness Chief Complaint: Shortness of breath Primary Care Provider: César Barnes MD History obtained from patient, family, and records. Medical history significant for chronic respiratory failure secondary to COPD/I LD on home O2, hypertension, chronic diastolic HF 2 to non-ischemic cardiomyopathy (TTE EF 55-60%, 2019), CAD/PVD as per records, ESRD on hemodialysis, breast cancer sp surgery/chemoradiation, non-small cell lung cancer status post radiation, past tobacco abuse, GERD, gastroparesis as per records, hypothyroidism, cirrhosis, chronic anemia (baseline hemoglobin 9), chronic thrombocytopenia, hx pulmonary vasculitis as per records. Last confinement February 2021 for respiratory failure secondary to cardiorenal syndrome, COPD/ILD exacerbation. Patient missed dialysis last Thursday because dialysis machine at [place] was broken. Patient directed to [facility] for dialysis but failed to comply. 2 days ago, patient noted worsening of chronic abdominal discomfort followed by melena. No fever, no chills. No hematemesis. Patient later noted shortness of breath and hemoptysis symptoms. No fever, no chills. Denies aspiration. Not sure about recent sick COVID-19 contacts. At the ER, BiPAP initiated for respiratory distress. MEDICAL HISTORY: As above. Hemodialysis ThursdayMarch, EGD Gastric polyps, iron staining duodenum Colonoscopy internal hemorrhoids, polyps SURGERIES: Mastectomy, thyroidectomy, vascular procedures, back surgery. FAMILY HISTORY: Breast cancer, stroke. PERSONAL AND SOCIAL HISTORY: Past tobacco abuse. No chronic intake of alcohol. Lives with Allergies Allergy/AdvReac Type Severity Reaction Status Date / Time atropine Allergy Severe Dyspnea Verified 05/20/21 06:55 linezolid Allergy Severe Thrombocyto Verified 05/20/21 06:55 penia naproxen Allergy Severe Facial Verified 05/20/21 06:55 edema dipyridamole Allergy Intermediate "Bad Verified 05/20/21 06:55 reaction" per records vancomycin Allergy Intermediate Rash/tommy Verified 05/20/21 06:55 syndrome maprotiline Allergy Unknown Unknown Unverified 05/20/21 06:55 valacyclovir [From Valtrex] Allergy Unknown Unknown Unverified 05/20/21 06:55 aspirin AdvReac Intermediate Abdominal Verified 05/20/21 06:55 cramping salicylates AdvReac Unknown Unknown Unverified 05/20/21 06:55 Home Medications Medication Instructions Recorded Confirmed Type albuterol sulfate 2.5 mg INHALATION DIRECTED PRN 11/02/18 05/20/21 History hydralazine 25 mg tablet 25 mg PO TID 11/02/18 05/20/21 History levothyroxine 75 mcg tablet 75 mcg PO DAILYBB 11/02/18 05/20/21 History simvastatin 20 mg tablet 20 mg PO HS 11/02/18 05/20/21 History amlodipine 10 mg tablet 10 mg PO QAM 07/14/19 05/20/21 History pantoprazole 40 mg tablet,delayed 40 mg PO QAM 07/14/19 05/20/21 History release metoprolol succinate 25 mg 25 mg PO QAM 11/19/19 05/20/21 History tablet,extended release 24 hr ondansetron HCl 4 mg tablet 4 mg PO Q6H PRN #6 tab 07/23/20 05/20/21 Rx (Zofran) calcium acetate(phosphat bind) 667 667 mg PO ACHS 05/20/21 05/20/21 History mg capsule Past Med/Surg History Medical History Anemia of chronic renal failure AV fistula LUE Breast cancer s/p chemo/xrt CAD (coronary artery disease) Cirrhosis per records COPD (chronic obstructive pulmonary disease) ESRD (end stage renal disease) dialysis Thursday//Thursday ([place]) GERD (gastroesophageal reflux disease) History of abdominal paracentesis Hyperlipidemia Hypertension Hypothyroidism Non-ischemic cardiomyopathy Non-small cell lung cancer (NSCLC) dx 04/2019; s/p XRT; RML On home oxygen therapy 2L O2 HS Poor historian Splenomegaly, not elsewhere classified w/ multiple hypodense masses stable on fall 2019 imaging and present since at least 2005 Thrombocytopenia chronic, 2/2 cirrhosis. Surgical History H/O partial thyroidectomy GOITER History of bronchoscopy History of cardiac cath 2013- NO STENTS History of colonoscopy History of esophagogastroduodenoscopy (EGD) History of tooth extraction Hx of lumpectomy LEFT S/P arteriovenous (AV) fistula creation S/P laparoscopic cholecystectomy 06/2020 [facility] Family History Other Family history non-contributory No family history of adverse response to anesthesia Social History Smoking Status: Former smoker Tobacco Type: Cigarettes Smoking End Date: 2009; Second Hand Exposure: No; Tobacco Cessation Education Requested by Patient: No Hx Alcohol Use: No Hx Substance Use: No Preferred Language: Vincentian Communication Ability: Effective Paper Colorer Required: No Beliefs That Will Affect Care: None marital status: Current Living Situation: Spouse current occupational status: disabled Feels Safe at Home: Yes Safety Concerns: Feels Safe At This Time Assistive Devices: Nebulizer and Oxygen - at Night Review of Systems Review of Systems: As per HPI, all 10 systems reviewed, all other ROS negative Physical Exam Physical Exam: GENERAL: uncomfortable, chronically ill, underweight, minimal respiratory distress SKIN: Pallor , warm HEENT: Pale palpebral conjunctivae, ptosis, dry buccal mucosa, BiPAP in place NECK : Supple, no tenderness CHEST : Bilateral rhonchi, expiratory wheezes , no tenderness HEART : RRR, systolic murmur ABDOMEN: Some distention, epigastric tenderness EXTREMITIES : No LE swelling/tenderness, no other conspicuous deformities noted NEUROLOGIC : Coherent, no facial asymmetry, no other gross focality Results & Data Results & Data ([facility]) Vital Signs (Past 12 Hours) Vital Signs Temp Pulse Pulse Resp BP Pulse Ox 05/20/21 05:34 91 H 22 100 05/20/21 05:12 94 H 27 H 156/63 H 99 05/20/21 04:43 97 H 24 100 05/20/21 04:25 36.7 C 98 H 28 H 146/94 H 98 Laboratory Results Laboratory Results WBC 15.19 K/uL (4.8-10.8) H 05/20/21 05:03 RBC 3.69 M/uL (4.2-5.4) L 05/20/21 05:03 Hgb 10.1 g/dL (12.0-16.0) L 05/20/21 05:03 POC Hgb 10.2 g/dl (12.0-16.0) L 05/20/21 05:06 Hct 32.8 % (37-47) L 05/20/21 05:03 POC Hct 30 % (37-47) L 05/20/21 05:06 MCV 88.9 fL (80-100) 05/20/21 05:03 MCH 27.4 pg (25-34) 05/20/21 05:03 MCHC 30.8 g/dL (32-36) L 05/20/21 05:03 RDW Std Deviation 57.1 fL (36.4-46.3) H 05/20/21 05:03 RDW Coeff of Dave 17.4 % (11.5-14.5) H 05/20/21 05:03 Plt Count 125 K/uL (130-400) L 05/20/21 05:03 MPV 9.8 fL (7.4-10.4) 05/20/21 05:03 Immature Gran % (Auto) 0.4 % 05/20/21 05:03 Neut % (Auto) 89.5 % 05/20/21 05:03 Lymph % (Auto) 3.0 % 05/20/21 05:03 Smith % (Auto) 5.9 % 05/20/21 05:03 Eos % (Auto) 1.0 % 05/20/21 05:03 Baso % (Auto) 0.2 % 05/20/21 05:03 Neut # (Auto) 13.60 K/uL (1.4-6.5) H 05/20/21 05:03 Lymph # (Auto) 0.46 K/uL (1.2-3.4) L 05/20/21 05:03 Smith # (Auto) 0.89 K/uL (0.11-0.59) H 05/20/21 05:03 Eos # (Auto) 0.15 K/uL (0-0.5) 05/20/21 05:03 Baso # (Auto) 0.03 K/uL (0-0.2) 05/20/21 05:03 Immature Gran # (Auto) 0.06 K/uL (0.00-0.02) H 05/20/21 05:03 POC Sodium 135 mmol/L (135-144) 05/20/21 05:06 POC Potassium 6.7 mmol/L (3.3-5.0) H* 05/20/21 05:06 POC Chloride 103 mmol/L (101-112) 05/20/21 05:06 POC Total CO2 22 mmol/L (24-31) L 05/20/21 05:06 POC Anion Gap 17.0 mmol/L (16-25) 05/20/21 05:06 POC BUN 53 mg/dl (7-18) H 05/20/21 05:06 POC Creatinine 10.6 mg/dl (0.6-1.3) H* 05/20/21 05:06 POC Glucose (other) 131 mg/dl (70-99) H 05/20/21 05:06 POC Ioniz Calcium Gloria 0.90 mmol/l (1.12-1.32) L 05/20/21 05:06 COVID-19 Eval Order Covid19 at [facility] 05/20/21 04:25 SARS-CoV-2 (PCR) NEGATIVE (Negative) 05/20/21 04:25 Diagnostic Findings Chest x-ray as per my interpretation congestion, pleural effusions EKG as per my interpretation :Rate 95, normal axis, NSR, T wave inversion lateral leads, peaked T waves
[2021-05-20 05:51] LABS: Alanine Aminotransferase 9 U/L (12-78); Albumin Globulin Ratio 0.7 (0.9-2); Albumin Level 2.5 gm/dl (3.4-5.0); Alkaline Phosphatase 160 U/L (45-117); Aspartate Aminotransferase 18 U/L (15-37); BUN Creatinine Ratio 5.6 (10-20); Bilirubin,Total 0.8 mg/dl (0.2-1); Blood Urea Nitrogen 56 mg/dl (7-18); Calcium 7.2 mg/dl (8.5-10.1); Carbon Dioxide 21 mmol/L (21-32); Chloride 104 mmol/L (98-107); Est GFR (African American) 4.3 ml/min; Est GFR (Non-African American) 3.7 ml/min; Globulin 3.7 gm/dl (2.5-4.0); Glucose 129 mg/dl (70-99); NT Pro B Type Natriuretic Pept 18692 pg/ml (0-900); Potassium 6.9 mmol/L (3.5-5.1); Sodium 136 mmol/L (136-145); Total Protein 6.2 gm/dl (6.4-8.2); Troponin I < 0.015 ng/ml (0-0.045)
[2021-05-20] MEDS ORDERED: PANTOprazole 40 MG in SYRINGE 0 ML IV ONE (06:00)
[2021-05-20] MEDS ORDERED: DEXTROSE 50% 50 ML SYRINGE IV ONE (06:00)
[2021-05-20] MEDS ORDERED: INSULIN HUMAN REGULAR PER UNIT 10 UNITS in SYRINGE 9.9 ML IV STA (06:04)
[2021-05-20] MEDS ORDERED: NovoLIN-R INSULIN PER UNIT CHARGE ONE (06:05)
--- NOTE | 2021-05-20 07:17 | CT Scan Report ---
CT OF THE CHEST WITHOUT IV CONTRAST CLINICAL HISTORY: Hemoptysis. COMPARISON STUDY: Chest CT February 12, 2021. Chest radiograph May 20, 2021. CT DOSE: 415.02 mGy.cm TECHNIQUE: Axial images of the chest were obtained without IV contrast. Images were reviewed in the axial, sagittal, and coronal planes. IV contrast was not administered for this examination. Automat ed exposure control was utilized for the study. A dose lowering technique was utilized adhering to t he principles of ALARA. FINDINGS: Multiple mildly enlarged hyperdense mediastinal and bilateral hilar lymph nodes are simila r to CT of February 12, 2021. Index precarinal node measures 1.2 cm in short axis diameter. Note is made o f cardiomegaly. There is a trace pericardial effusion. There are trace bilateral pleural effusions, r ight larger left. There is no pneumothorax. A left axillary vascular stent is noted. Note is again ma de of dense masslike consolidation within the right middle lobe with occlusion of the right middle lo be bronchi. This is similar in appearance to study of February 12, 2021. Multiple irregular hyperdense rig ht lower lobe nodules and masslike abnormalities are noted, including a 3.4 x 2.4 cm right lower lobe lesion on image 174. This has slightly increased in size since prior exam it measured 3.1 x 2.3 cm. Numerous small left lower lobe nodules are new since prior exam. Interlobular septal thickening is pr esent. There are extensive groundglass opacities within the lungs. These have increased. The abdomen and pelvis will be reported separately. IMPRESSION: 1. Cardiomegaly. Interlobular septal thickening consistent with interstitial pulmonary edema. Ground glass opacities have increased since prior exam. The findings favor alveolar pulmonary edema. An infe ctious process or pulmonary hemorrhage could appear similar although are considered less likely. 2. Trace bilateral pleural effusions. 3. Redemonstration of numerous irregular hyperdense foci within the lower lobes, greatest within the right lower lobe and right middle lobe with occlusion of the right middle lobe bronchi. Slight increa se in size of a 3.4 x 2.4 cm right lower lobe hyperdense focus since prior CT. These are nonspecific although may reflect sequela of aspiration. Short-term follow-up CT in 3 months is recommended for re assessment. Consideration might also be given to bronchoscopy for evaluation of the right middle lobe abnormality if not already performed. 4. No change in mediastinal and hilar lymphadenopathy. ACT 112: Negative or not required by law. Electronically signed by: Hemal Rushing M.D. 05/20/2021 7:15 AM
--- NOTE | 2021-05-20 07:28 | XRay Report ---
XR chest 1V portable CLINICAL HISTORY: Dyspnea COMPARISON STUDY: Chest radiograph February 13, 2021. Chest CT February 12, 2021. FINDINGS: Left axillary vascular stent is again noted. Dense right middle lobe masslike opacity is ag ain noted. There are trace bilateral pleural effusions. There is no pneumothorax. Extensive interstit ial thickening and bilateral opacities have progressed. Cardiomegaly is unchanged. IMPRESSION: 1. Progression of interstitial thickening and bilateral opacities. The findings favor pulmonary edema . An infectious process could appear similar although is considered less likely. 2. Trace bilateral pleural effusions. 3. Redemonstration of the right middle lobe mass-like abnormality. ACT 112: Negative or not required by law. Electronically signed by: Hemal Rushing M.D. 05/20/2021 7:27 AM
--- NOTE | 2021-05-20 07:36 | CT Scan Report ---
CT OF THE ABDOMEN AND PELVIS WITHOUT CONTRAST CLINICAL HISTORY: Abdominal pain. COMPARISON STUDY: CT of the abdomen and pelvis February 12, 2021. TECHNIQUE: Axial images of the abdomen and pelvis were obtained without IV contrast. Images were revi ewed in the axial, sagittal, and coronal planes. Automated exposure control was utilized for the patrice dy. A dose lowering technique was utilized adhering to the principles of ALARA. FINDINGS: Please note that the chest CT will be reported separately. There are trace bilateral pleura l effusions. Hyperdense foci within the lower lungs are better depicted on the chest CT. There is int erlobular septal thickening and groundglass opacities within the lower lungs. Evaluation of the abdom en and pelvis is suboptimal as unenhanced exam. No pneumatosis, free air or portal venous gas is pres ent. Splenomegaly is unchanged. Numerous hypodense splenic lesions are similar to prior exams. These are probably benign. There is suspected cirrhosis. There is no biliary ductal dilatation status post cholecystectomy. There may be slight stranding within the goldie hepatis which is nonspecific but of q uestionable significance. There is no definite peripancreatic infiltration. There are no peripancreat ic fluid collections. There are several splenules. Extensive plaque of the abdominal aorta is noted. There is trace ascites within the pelvis. There is no evidence for a bowel obstruction. No pneumatosi s, free air or portal venous gas is present. Note is made of infiltration adjacent to the left femora l vessels with a few adjacent hyperdense foci that measure up to 1 cm. The findings are new since lanny or CT of February 12, 2021. Both [place] kidneys are markedly atrophic. Unenhanced images of the adrenal gl ands and pancreas are unremarkable. Multiple small hyperdense upper abdominal lymph nodes are unchang ed. These are benign. IMPRESSION: 1. No bowel obstruction. No bowel wall thickening on unenhanced exam. 2. Suspected cirrhosis. No change in splenomegaly. Trace pelvic ascites. 3. Stranding and suspected small amount of hemorrhage adjacent to the left femoral vessels. This is n ew since prior CT. The findings are nonspecific although could be related to recent procedure. Correl ation with recent procedural history is recommended. 4. Trace bilateral pleural effusions with findings suggestive of pulmonary edema within the lung base s. ACT 112: Negative or not required by law. Electronically signed by: Hemal Rushing M.D. 05/20/2021 7:35 AM
[2021-05-20] MEDS ORDERED: PIPERACILL/TAZOBAC CONSULT ACTIVE PRN (07:41)
[2021-05-20] MEDS ORDERED: PIPERACILLIN/TAZOBACTAM 4.5 GM/120 ML BAG IV ONE (07:41)
[2021-05-20] MEDS ORDERED: DOXYCYCLINE HYCLATE 100 MG in DEXTROSE 5% 100 ML IV ONE (08:30)
[2021-05-20] MEDS ORDERED: PIPERACILLIN/TAZOBACTAM 3.375 GM in DEXTROSE 5% 100 ML IV ONE (08:30)
[2021-05-20] MEDS ORDERED: PATIENT'S HEIGHT AND/OR WEIGHT NEEDED SCH (08:30)
[2021-05-20] MEDS ORDERED: traMADol HCL 50 MG TABLET PO PRN (08:32)
[2021-05-20] MEDS ORDERED: LEVALBUTEROL 1.25MG/0.5ML NEB INH PRN (08:32)
[2021-05-20] MEDS ORDERED: NITROGLYCERIN SL 0.4 MG/TAB TAB SL PRN (08:32)
[2021-05-20] MEDS ORDERED: XOPENEX/ATROVENT 1.25mg/0.5MG NEB COMBO NEB PRN (08:32)
[2021-05-20] MEDS ORDERED: PROMETHAZINE HCL 12.5 MG in SODIUM CHLORIDE 0.9% 50 ML IV PRN (08:32)
[2021-05-20] MEDS ORDERED: ACETAMINOPHEN 325 MG TAB PO PRN (08:32)
[2021-05-20] MEDS ORDERED: IPRATROPIUM BROMIDE NEB SOLN 0.02% 2.5 ML VIAL INH PRN (08:32)
[2021-05-20 09:40] LABS: Hematocrit (blood only) 29.6 % (37-47)
[2021-05-20 09:50] LABS: Prothrombin Time 10.5 Seconds (9.0-12.0)
--- NOTE | 2021-05-20 10:17 | Nephrology Consultation ---
Date of Consultation May 20, 2021 Assessment & Plan (1) ESRD (end stage renal disease) on dialysis: for urgent dialysis this morning 4h on 2 K bath to manage volume overload and potassium; no vascular access issues; eval tomorrow for next treatment as clinically needed (2) Hyperkalemia: medically managed pending dialysis (3) Anemia: 10K epo q tx, as per OP routine; despite hemoptysis, will give routine heparin on tx and monitor for bleeding concerns History of Present Illness Reason for Consultation: ESRD needs dialysis Requesting Physician: Dr Cuello Attending Physician: Raheem Hahn MD History of Present Illness 61 y/o F pt on TRSat HD presented to ER this AM w/ respiratory distress. She had missed Thursday treatment d/t machine malfunction at her home unit and inability to get to [facility] for backup. On presentation she was found to have K 6.9, respiratory failure needing bipap. She received IV insulin 10 units and calcium gluconate. Also endorsed worsening cough w/ hemoptysis and worse abdominal pain in the days before presentation. Her abdominal pain has been in a band across her upper abdomen; also w/ occasional emesis which she states she swallows again; some retrosternal pain at times w/ this. Other PMH includes chronic respiratory failure from ILD/COPD on at home, CAD/PVD, HFpEF, HTN, liver cirrhosis w/ chronic thrombocytopenia, NSCLC s/p XRT about 3 yrs back, remote BRCA, esophageal polyps. Chronic abdominal pain and nausea. Admitted here 02/2021 for acute on chronic respiratory failure/ volume overload from CRS, chronic lung disease exacerbation. Allergies Allergy/AdvReac Type Severity Reaction Status Date / Time atropine Allergy Severe Dyspnea Verified 05/20/21 06:55 linezolid Allergy Severe Thrombocyto Verified 05/20/21 06:55 penia naproxen Allergy Severe Facial Verified 05/20/21 06:55 edema dipyridamole Allergy Intermediate "Bad Verified 05/20/21 06:55 reaction" per records vancomycin Allergy Intermediate Rash/tommy Verified 05/20/21 06:55 syndrome maprotiline Allergy Unknown Unknown Unverified 05/20/21 06:55 valacyclovir [From Valtrex] Allergy Unknown Unknown Unverified 05/20/21 06:55 aspirin AdvReac Intermediate Abdominal Verified 05/20/21 06:55 cramping salicylates AdvReac Unknown Unknown Unverified 05/20/21 06:55 Home Medications Medication Instructions Recorded Confirmed Type albuterol sulfate 2.5 mg INHALATION DIRECTED PRN 11/02/18 05/20/21 History hydralazine 25 mg tablet 25 mg PO TID 11/02/18 05/20/21 History levothyroxine 75 mcg tablet 75 mcg PO DAILYBB 11/02/18 05/20/21 History simvastatin 20 mg tablet 20 mg PO HS 11/02/18 05/20/21 History amlodipine 10 mg tablet 10 mg PO QAM 07/14/19 05/20/21 History pantoprazole 40 mg tablet,delayed 40 mg PO QAM 07/14/19 05/20/21 History release metoprolol succinate 25 mg 25 mg PO QAM 11/19/19 05/20/21 History tablet,extended release 24 hr ondansetron HCl 4 mg tablet 4 mg PO Q6H PRN #6 tab 07/23/20 05/20/21 Rx (Zofran) calcium acetate(phosphat bind) 667 667 mg PO ACHS 05/20/21 05/20/21 History mg capsule Patient History Medical History Anemia of chronic renal failure AV fistula LUE Breast cancer s/p chemo/xrt CAD (coronary artery disease) Cirrhosis per records COPD (chronic obstructive pulmonary disease) ESRD (end stage renal disease) dialysis Thursday//Thursday ([place]) GERD (gastroesophageal reflux disease) History of abdominal paracentesis Hyperlipidemia Hypertension Hypothyroidism Non-ischemic cardiomyopathy Non-small cell lung cancer (NSCLC) dx 04/2019; s/p XRT; RML On home oxygen therapy 2L O2 HS Poor historian Splenomegaly, not elsewhere classified w/ multiple hypodense masses stable on fall 2019 imaging and present since at least 2005 Thrombocytopenia chronic, 2/2 cirrhosis. Surgical History H/O partial thyroidectomy GOITER History of bronchoscopy History of cardiac cath 2013- NO STENTS History of colonoscopy History of esophagogastroduodenoscopy (EGD) History of tooth extraction Hx of lumpectomy LEFT S/P arteriovenous (AV) fistula creation S/P laparoscopic cholecystectomy 06/2020 [facility] Family History Other Family history non-contributory No family history of adverse response to anesthesia Social History Smoking Status: Former smoker Tobacco Type: Cigarettes Smoking End Date: 2009; Second Hand Exposure: No; Tobacco Cessation Education Requested by Patient: No Hx Alcohol Use: No Hx Substance Use: No Preferred Language: Romanian Communication Ability: Effective Certification And Selection Specialist Required: No Beliefs That Will Affect Care: None marital status: Current Living Situation: Spouse current occupational status: disabled Feels Safe at Home: Yes Safety Concerns: Feels Safe At This Time Assistive Devices: Nebulizer and Oxygen - at Night Review of Systems Review of Systems: All systems reviewed & are unremarkable except as noted in HPI & below Physical Exam Constitutional: well developed, + cachectic, + frail appearing and cooperative; no acute distress Eyes: EOM intact bilaterally ENMT: Ears: no external ear abnormality Nose: no external nose abnormality Mouth: + dry oral mucous membranes Neck: no nuchal rigidity Respiratory: + respiratory distress (slight on bipap) Auscultation: + crackles, + rhonchi and + wheezes Cardiovascular: Rate/Rhythm: regular rhythm and + tachycardic Extremities: + AV fistula (+T/b L prox UE); no edema Gastrointestinal (Abdomen): Inspection/Auscultation: normal bowel sounds Percussion/Palpation: abdomen soft; abdomen nontender Musculoskeletal: Extremities: strength 5/5 throughout Skin: no rashes, warm and dry Neurologic: yao, fluent speech, no tremor Psychiatric: Orientation: oriented x 3 and cooperative Results & Data ([facility]) Vital Signs (Past 12 Hours) Vital Signs Temp Pulse Pulse Resp BP BP Pulse Ox 05/20/21 08:54 30 H 05/20/21 08:20 36.5 C 96 H 20 163/76 H 98 05/20/21 07:06 90 19 98 05/20/21 06:37 96 H 20 150/63 H 98 05/20/21 05:34 91 H 22 100 05/20/21 05:12 94 H 27 H 156/63 H 99 05/20/21 04:43 97 H 24 100 05/20/21 04:25 36.7 C 98 H 28 H 146/94 H 98 Laboratory Results 05/20/21 09:26 05/20/21 09:26
[2021-05-20 10:24] LABS: BUN Creatinine Ratio 5.8 (10-20); Creatinine Clr Calc Pharmacy 4.1 ml/min; Est GFR (Non-African American) 3.5 ml/min
[2021-05-20] MEDS ORDERED: SODIUM CHLORIDE 0.9% 1000ML 1,000 ML IV PRN (10:55)
[2021-05-20] MEDS ORDERED: CALCIUM CARBONATE 500 MG CHEWABLE TAB PO PRN (10:55)
[2021-05-20] MEDS ORDERED: HEPARIN SOD (PORCINE) 1000 UNIT/ML IV ONE (10:55)
--- NOTE | 2021-05-20 10:56 | Hospitalist Progress Note ---
Date of Service May 20, 2021 Assessment & Plan (1) Acute hypoxemic respiratory failure: Plan: She is 1-year-old female with PMH of chronic respiratory failure secondary to COPD/ILD on 2 L home oxygen mostly at night, HTN, chronic diastolic HF secondary to nonischemic CM [2020 TTE 55 to 60%], CAD/PVD, ESRD on HD, breast cancer status post surgery/chemoradiation, NSCLC status post radiation, tobacco abuse [started at age 13/15 up to 10 to 11 years ago, average of 1 PPD], GERD, gastroparesis, cirrhosis, hypothyroidism, chronic anemia [baseline hemoglobin 9], chronic thrombocytopenia and pulmonary vasculitis presented 05/20 to our ED with complaint of worsening chronic abdominal discomfort followed by melena. Also see complaint of shortness of breath for 2 days and had hemoptysis while in ED. Patient has baseline cough since couple of months with clear sputum which has slightly worsened since last few days. She has missed her dialysis last Thursday. She is being managed for the following: #. Acute on chronic hypoxemic respiratory failure [chronic rash secondary to COPD and ILD on 2 L home oxygen mostly at night] #. Diastolic heart failure #. ESRD on HD Admitting CXR: Trace B/L pleural effusion. Progression of interstitial thickening and bilateral opacitiesinfectious versus pulmonary edema. Redemonstration of the right middle lobe masslike abnormality. Admitted CT chest: Cardiomegaly, interstitial pulmonary edema, increased groundglass opacities compared to prior exam. Trace bilateral pleural effusion. Redemonstration of numerous irregular hyperdense foci within the lower lobes greatest within the right lower lobe and right middle lobe with occlusion of the right middle lobe bronchi. Slight increase in the size of 3.4 x 2.4 cm right lower lobe hyperdense focus since prior CT. Admitting WBC 15 point 9K, pro-Laith 2.32 Most likely secondary to pulmonary edema on the background of missed hemodialysis, small chance of pulm infection. Await pulm recommendation. Nephrology on board. Hypoxia expected to improve after hemodialysis. Continue with CPAP as needed. Continue with ATB. #. Hypokalemia #. ESRD on HD #. Hypocalcemia Admitting potassium 6.7 status post potassium cocktail x1 Undergoing hemodialysis, expect to improve, follow-up with potassium level in the evening. Calcium of 7.2 at presentation, repeat calcium improved. Follow-up as needed. #. Melena #. Gastric polyp and recent EGD #. Cirrhosis Admitting CTAP: No bowel obstruction, cirrhosis, trace pelvic ascites FOBT positive, admitting hemoglobin 10.1, history of chronic anemia, hemoglobin stable around 9 GI consulted, monitor hemoglobin daily. Continue n.p.o. unless mentioned otherwise by GI. Continue with PPI Monitor hemoglobin daily, transfuse for hemoglobin less than 8 or for symptomatic anemia. #. CAD/COPD/history of breast cancer status post treatments/NSCLC/past tobacco abuse: Stable, continue home meds #. DVT prophylaxis: SCDs, history of thrombocytopenia Family contact: Mr. Peterson Macedo - [phone] Admission and Anticipated Discharge Date Admission Date: May 20, 2021 Subjective Patient was in bed, on CPAP, NAD, AOx3, cooperative. Patient reports of epigastric pain and heartburn. Patient wants to get off of CPAP. She uses 2 L oxygen at home during nights. She reports of having streak of blood in her sputum today morning. Denies other review of symptoms. Physical Exam Physical Exam: GENERAL: Alert and oriented x3. NAD, on CPAP HEENT: No pallor, no icterus. Pupils equal, round and reactive to light. Oral mucosa moist. NECK: No JVD, no neck masses. HEART: S1 and S2 heard. Regular rate and rhythm. No murmur, no gallop. RESPIRATORY SYSTEM: Normal AP diameter. No accessory muscle use. No wheezing, crackles diffuse and bilateral ABDOMEN: Soft, bowel sounds present, mild epigastric tenderness, no distention. CENTRAL NERVOUS SYSTEM: Alert and oriented x3. No facial droop. Speech is clear. Obeys simple commands. Moves extremities. EXTREMITIES: No edema, no erythema seen. Results & Data Results & Data ([facility]) Vital Signs (Past 12 Hours) Vital Signs Temp Pulse Pulse Resp BP BP Pulse Ox 05/20/21 08:54 30 H 05/20/21 08:20 36.5 C 96 H 20 163/76 H 98 05/20/21 07:06 90 19 98 05/20/21 06:37 96 H 20 150/63 H 98 05/20/21 05:34 91 H 22 100 05/20/21 05:12 94 H 27 H 156/63 H 99 05/20/21 04:43 97 H 24 100 05/20/21 04:25 36.7 C 98 H 28 H 146/94 H 98
[2021-05-20] MEDS ORDERED: LEVALBUTEROL HCL 1.25 MG/3 ML NEB INH SCH (11:00)
[2021-05-20] MEDS: CALCIUM ACETATE 667 MG CAP/TAB PO SCH ×4 (11:03→21:09)
[2021-05-20] MEDS ORDERED: EPOETIN ALFA 10,000 UNITS/ML VIAL IV SCH (11:30)
--- NOTE | 2021-05-20 12:06 | Gastrointestinal Consultation ---
Date of Consultation May 20, 2021 Assessment & Plan (1) Heme positive stool: 62 year old female with history of chronic respiratory failure secondary to COPD/ILD on home O2, chronic diastolic heart failure secondary to non- ischemic cardiomyopathy (TTE EF 55-60%, 2019), HTN, lung cancer status post radiation, past tobacco abuse, GERD, gastroparesis as per records, hypothyroidism, cirrhosis, chronic anemia (baseline hemoglobin 9), chronic thrombocytopenia, hx pulmonary vasculitis admitted w/pain and dark stools, heme + stools Hemodynamically stable, stable HGB, EGD/Colon 03/2021 reviewed No acute indication for endoscopic evaluation Appreciate nephrology and pulmonary consultation Trend HGB Monitor BMs Transfuse PRN PPI Thank you for allowing us to participate in the care of this patient. Please call with any acute changes, questions or concerns. Please see addendum below w ith additional recommendation from my supervising physician. Supervising Physician Co-Signing Physician Notes I performed a history and physical examination of the patient today, including specifically on physical exam - soft abdomen. I have discussed the patient's management with the advanced practitioner. Please refer to the nurse practitioner's note for the documented findings and plan of care. No overt ongoing GI bleeding. Recent EGD/colonoscopy with no bleeding source. Plan for OP VCE. Recall GI if needed. History of Present Illness Reason for Consultation: + FOBT Requesting Physician: Jovani Attending Physician: Raheem Hahn MD History of Present Illness 62 year old female with history of chronic respiratory failure secondary to COPD/ILD on home O2, chronic diastolic heart failure secondary to non-ischemic cardiomyopathy (TTE EF 55-60%, 2019), HTN, lung cancer status post radiation, past tobacco abuse, GERD, gastroparesis as per records, hypothyroidism, cirrhosis, chronic anemia (baseline hemoglobin 9), chronic thrombocytopenia, hx pulmonary vasculitis admitted through the ED w/ abd pain and dark stools which were heme +. Pt was seen and evaluated, chart reviewed. Notes about 2/3 days ago she had generalized abd pain with some nausea. No vomiting. After onset of pain she noted dark stools x 2 episodes. No BRBPR. Today she is SOB. No fever, chills, CP. Missed last dialysis day BNP 26201 HGB at baseline CTAP 2020: No bowel obstruction. No bowel wall thickening on unenhanced exam. Suspected cirrhosis. No change in splenomegaly. Trace pelvic ascites. Stranding and suspected small amount of hemorrhage adjacent to the left femoral vessels. This is new since prior CT. The findings are nonspecific although could be related to recent procedure. Correlation with recent procedural history is recommended. Trace bilateral pleural effusions with findings suggestive of p ulmonary edema within the lung bases. EGD 2020: Normal esophagus. - Multiple gastric polyps. Biopsied. Pending results will consider repeat EMR. - Mucosal changes in the duodenum consistent with iron staining. Colonoscopy 2020: - The examined portion of the ileum was normal. - One 10 mm polyp in the transverse colon, removed with a hot snare. Resected and retrieved. Clip (MR conditional) was placed. - One 12 mm polyp in the transverse colon, removed with a hot snare. Resected and retrieved. Clip (MR conditional) was placed. - Internal hemorrhoids. - The examination was otherwise normal. Allergies Allergy/AdvReac Type Severity Reaction Status Date / Time atropine Allergy Severe Dyspnea Verified 05/20/21 06:55 linezolid Allergy Severe Thrombocyto Verified 05/20/21 06:55 penia naproxen Allergy Severe Facial Verified 05/20/21 06:55 edema dipyridamole Allergy Intermediate "Bad Verified 05/20/21 06:55 reaction" per records vancomycin Allergy Intermediate Rash/tommy Verified 05/20/21 06:55 syndrome maprotiline Allergy Unknown Unknown Unverified 05/20/21 06:55 valacyclovir [From Valtrex] Allergy Unknown Unknown Unverified 05/20/21 06:55 aspirin AdvReac Intermediate Abdominal Verified 05/20/21 06:55 cramping salicylates AdvReac Unknown Unknown Unverified 05/20/21 06:55 Home Medications Medication Instructions Recorded Confirmed Type albuterol sulfate 2.5 mg INHALATION DIRECTED PRN 11/02/18 05/20/21 History hydralazine 25 mg tablet 25 mg PO TID 11/02/18 05/20/21 History levothyroxine 75 mcg tablet 75 mcg PO DAILYBB 11/02/18 05/20/21 History simvastatin 20 mg tablet 20 mg PO HS 11/02/18 05/20/21 History amlodipine 10 mg tablet 10 mg PO QAM 07/14/19 05/20/21 History pantoprazole 40 mg tablet,delayed 40 mg PO QAM 07/14/19 05/20/21 History release metoprolol succinate 25 mg 25 mg PO QAM 11/19/19 05/20/21 History tablet,extended release 24 hr ondansetron HCl 4 mg tablet 4 mg PO Q6H PRN #6 tab 07/23/20 05/20/21 Rx (Zofran) calcium acetate(phosphat bind) 667 667 mg PO ACHS 05/20/21 05/20/21 History mg capsule Patient History Medical History (Updated 05/20/21 @ 15:52 by Toño Duron MD) Anemia of chronic renal failure AV fistula LUE Breast cancer s/p chemo/xrt CAD (coronary artery disease) Chronic hypoxemic respiratory failure Cirrhosis per records COPD (chronic obstructive pulmonary disease) ESRD (end stage renal disease) dialysis Thursday//Thursday ([place]) GERD (gastroesophageal reflux disease) History of abdominal paracentesis Hyperlipidemia Hypertension Hypothyroidism Interstitial lung disease Multiple pulmonary nodules determined by computed tomography of lung Non-ischemic cardiomyopathy Non-small cell lung cancer (NSCLC) dx 04/2019; s/p XRT; RML On home oxygen therapy 2L O2 HS Poor historian Splenomegaly, not elsewhere classified w/ multiple hypodense masses stable on fall 2019 imaging and present since at least 2005 Thrombocytopenia chronic, 2/2 cirrhosis. Surgical History H/O partial thyroidectomy GOITER History of bronchoscopy History of cardiac cath 2013- NO STENTS History of colonoscopy History of esophagogastroduodenoscopy (EGD) History of tooth extraction Hx of lumpectomy LEFT S/P arteriovenous (AV) fistula creation S/P laparoscopic cholecystectomy 06/2020 [facility] Family History Other Family history non-contributory No family history of adverse response to anesthesia Social History Smoking Status: Former smoker Tobacco Type: Cigarettes Smoking End Date: 2009; Second Hand Exposure: No; Tobacco Cessation Education Requested by Patient: No Hx Alcohol Use: No Hx Substance Use: No Preferred Language: Argentine Communication Ability: Effective Surveillance Inspector Required: No Beliefs That Will Affect Care: None marital status: Current Living Situation: Spouse current occupational status: disabled Feels Safe at Home: Yes Safety Concerns: Feels Safe At This Time Assistive Devices: Nebulizer and Oxygen - at Night Review of Systems Review of Systems: All systems reviewed & are unremarkable except as noted in HPI & below Physical Exam Constitutional: WD/WN, vitals as above Neck: trachea midline, no thyromegaly Respiratory: normal respiratory effort, lungs clear to auscultation Gastrointestinal (Abdomen): normal bowel sounds, soft, nontender, no hepatosplenomegaly Skin: no rashes, warm and dry Results & Data ([facility]) Vital Signs (Past 12 Hours) Vital Signs Temp Pulse Pulse Resp BP BP Pulse Ox 05/20/21 11:13 80 22 96 05/20/21 08:54 30 H 05/20/21 08:20 36.5 C 96 H 20 163/76 H 98 05/20/21 08:00 94 H 05/20/21 07:06 90 19 98 05/20/21 06:37 96 H 20 150/63 H 98 05/20/21 05:34 91 H 22 100 05/20/21 05:12 94 H 27 H 156/63 H 99 05/20/21 04:43 97 H 24 100 05/20/21 04:25 36.7 C 98 H 28 H 146/94 H 98 Laboratory Results 05/20/21 05/20/21 05/20/21 Range/Units 09:26 09:26 09:26 WBC (4.8-10.8) K/uL RBC (4.2-5.4) M/uL Hgb (12.0-16.0) g/dL POC Hgb (12.0-16.0) g/dl Hct (37-47) % POC Hct (37-47) % MCV (80-100) fL MCH (25-34) pg MCHC (32-36) g/dL RDW Std Deviation (36.4-46.3) fL RDW Coeff of Dave (11.5-14.5) % Plt Count (130-400) K/uL MPV (7.4-10.4) fL Immature Gran % (Auto) % Neut % (Auto) % Lymph % (Auto) % [place] % (Auto) % Eos % (Auto) % Baso % (Auto) % Neut # (Auto) (1.4-6.5) K/uL Lymph # (Auto) (1.2-3.4) K/uL [place] # (Auto) (0.11-0.59) K/uL Eos # (Auto) (0-0.5) K/uL Baso # (Auto) (0-0.2) K/uL Immature Gran # (Auto) (0.00-0.02) K/uL PT (9.0-12.0) Seconds INR (0.9-1.1) POC Sodium (135-144) mmol/L Sodium 138 (136-145) mmol/L POC Potassium (3.3-5.0) mmol/L Potassium 6.0 H (3.5-5.1) mmol/L POC Chloride (101-112) mmol/L Chloride 104 (98-107) mmol/L Carbon Dioxide 22 (21-32) mmol/L POC Total CO2 (24-31) mmol/L Anion Gap 12.0 H (3-11) POC Anion Gap (16-25) mmol/L POC BUN (7-18) mg/dl BUN 62 H (7-18) mg/dl Creatinine 10.60 H* D (0.6-1.2) mg/dl POC Creatinine (0.6-1.3) mg/dl Est Cr Clr Drug Dosing 4.1 Est GFR ( Amer) 4.0 ml/min Est GFR (Non-Af Amer) 3.5 ml/min BUN/Creatinine Ratio 5.8 L (10-20) Glucose 70 (70-99) mg/dl POC Glucose (70-99) mg/dl POC Glucose (other) (70-99) mg/dl Lactate (0.4-2.0) mmol/L Calcium Cancelled 8.0 L (8.5-10.1) mg/dl POC Ioniz Calcium Gloria (1.12-1.32) mmol/l Ionized Calcium 0.98 L (1.12-1.32) mmol/L Magnesium (1.8-2.4) mg/dl Total Bilirubin (0.2-1) mg/dl AST (15-37) U/L ALT (12-78) U/L Alkaline Phosphatase (45-117) U/L Troponin I (0-0.045) ng/ml NT-Pro-B Natriuret Pep (0-900) pg/ml Total Protein (6.4-8.2) gm/dl Albumin (3.4-5.0) gm/dl Globulin (2.5-4.0) gm/dl Albumin/Globulin Ratio (0.9-2) Lipase 151 (73-393) U/L Procalcitonin (0-0.5) ng/ml COVID-19 Eval Order SARS-CoV-2 (PCR) (Negative) Blood Type Antibody Screen 05/20/21 05/20/21 05/20/21 Range/Units 09:26 09:26 06:42 WBC (4.8-10.8) K/uL RBC (4.2-5.4) M/uL Hgb 9.0 L (12.0-16.0) g/dL POC Hgb (12.0-16.0) g/dl Hct 29.6 L (37-47) % POC Hct (37-47) % MCV (80-100) fL MCH (25-34) pg MCHC (32-36) g/dL RDW Std Deviation (36.4-46.3) fL RDW Coeff of Dave (11.5-14.5) % Plt Count (130-400) K/uL MPV (7.4-10.4) fL Immature Gran % (Auto) % Neut % (Auto) % Lymph % (Auto) % [place] % (Auto) % Eos % (Auto) % Baso % (Auto) % Neut # (Auto) (1.4-6.5) K/uL Lymph # (Auto) (1.2-3.4) K/uL [place] # (Auto) (0.11-0.59) K/uL Eos # (Auto) (0-0.5) K/uL Baso # (Auto) (0-0.2) K/uL Immature Gran # (Auto) (0.00-0.02) K/uL PT 10.5 (9.0-12.0) Seconds INR 1.0 (0.9-1.1) POC Sodium (135-144) mmol/L Sodium (136-145) mmol/L POC Potassium (3.3-5.0) mmol/L Potassium (3.5-5.1) mmol/L POC Chloride (101-112) mmol/L Chloride (98-107) mmol/L Carbon Dioxide (21-32) mmol/L POC Total CO2 (24-31) mmol/L Anion Gap (3-11) POC Anion Gap (16-25) mmol/L POC BUN (7-18) mg/dl BUN (7-18) mg/dl Creatinine (0.6-1.2) mg/dl POC Creatinine (0.6-1.3) mg/dl Est Cr Clr Drug Dosing Est GFR ( Amer) ml/min Est GFR (Non-Af Amer) ml/min BUN/Creatinine Ratio (10-20) Glucose (70-99) mg/dl POC Glucose 212 H (70-99) mg/dl POC Glucose (other) (70-99) mg/dl Lactate (0.4-2.0) mmol/L Calcium (8.5-10.1) mg/dl POC Ioniz Calcium Gloria (1.12-1.32) mmol/l Ionized Calcium (1.12-1.32) mmol/L Magnesium (1.8-2.4) mg/dl Total Bilirubin (0.2-1) mg/dl AST (15-37) U/L ALT (12-78) U/L Alkaline Phosphatase (45-117) U/L Troponin I (0-0.045) ng/ml NT-Pro-B Natriuret Pep (0-900) pg/ml Total Protein (6.4-8.2) gm/dl Albumin (3.4-5.0) gm/dl Globulin (2.5-4.0) gm/dl Albumin/Globulin Ratio (0.9-2) Lipase (73-393) U/L Procalcitonin (0-0.5) ng/ml COVID-19 Eval Order SARS-CoV-2 (PCR) (Negative) Blood Type Antibody Screen 05/20/21 05/20/21 05/20/21 Range/Units 06:08 06:04 05:06 WBC (4.8-10.8) K/uL RBC (4.2-5.4) M/uL Hgb (12.0-16.0) g/dL POC Hgb 10.2 L (12.0-16.0) g/dl Hct (37-47) % POC Hct 30 L (37-47) % MCV (80-100) fL MCH (25-34) pg MCHC (32-36) g/dL RDW Std Deviation (36.4-46.3) fL RDW Coeff of Dave (11.5-14.5) % Plt Count (130-400) K/uL MPV (7.4-10.4) fL Immature Gran % (Auto) % Neut % (Auto) % Lymph % (Auto) % [place] % (Auto) % Eos % (Auto) % Baso % (Auto) % Neut # (Auto) (1.4-6.5) K/uL Lymph # (Auto) (1.2-3.4) K/uL [place] # (Auto) (0.11-0.59) K/uL Eos # (Auto) (0-0.5) K/uL Baso # (Auto) (0-0.2) K/uL Immature Gran # (Auto) (0.00-0.02) K/uL PT (9.0-12.0) Seconds INR (0.9-1.1) POC Sodium 135 (135-144) mmol/L Sodium (136-145) mmol/L POC Potassium 6.7 H* (3.3-5.0) mmol/L Potassium (3.5-5.1) mmol/L POC Chloride 103 (101-112) mmol/L Chloride (98-107) mmol/L Carbon Dioxide (21-32) mmol/L POC Total CO2 22 L (24-31) mmol/L Anion Gap (3-11) POC Anion Gap 17.0 (16-25) mmol/L POC BUN 53 H (7-18) mg/dl BUN (7-18) mg/dl Creatinine (0.6-1.2) mg/dl POC Creatinine 10.6 H* (0.6-1.3) mg/dl Est Cr Clr Drug Dosing Est GFR ( Amer) ml/min Est GFR (Non-Af Amer) ml/min BUN/Creatinine Ratio (10-20) Glucose (70-99) mg/dl POC Glucose (70-99) mg/dl POC Glucose (other) 131 H (70-99) mg/dl Lactate 1.1 (0.4-2.0) mmol/L Calcium (8.5-10.1) mg/dl POC Ioniz Calcium Gloria 0.90 L (1.12-1.32) mmol/l Ionized Calcium (1.12-1.32) mmol/L Magnesium (1.8-2.4) mg/dl Total Bilirubin (0.2-1) mg/dl AST (15-37) U/L ALT (12-78) U/L Alkaline Phosphatase (45-117) U/L Troponin I (0-0.045) ng/ml NT-Pro-B Natriuret Pep (0-900) pg/ml Total Protein (6.4-8.2) gm/dl Albumin (3.4-5.0) gm/dl Globulin (2.5-4.0) gm/dl Albumin/Globulin Ratio (0.9-2) Lipase (73-393) U/L Procalcitonin (0-0.5) ng/ml COVID-19 Eval Order SARS-CoV-2 (PCR) (Negative) Blood Type O Positive Antibody Screen NEGATIVE 05/20/21 05/20/21 05/20/21 Range/Units 05:03 05:03 05:03 WBC (4.8-10.8) K/uL RBC (4.2-5.4) M/uL Hgb (12.0-16.0) g/dL POC Hgb (12.0-16.0) g/dl Hct (37-47) % POC Hct (37-47) % MCV (80-100) fL MCH (25-34) pg MCHC (32-36) g/dL RDW Std Deviation (36.4-46.3) fL RDW Coeff of Dave (11.5-14.5) % Plt Count (130-400) K/uL MPV (7.4-10.4) fL Immature Gran % (Auto) % Neut % (Auto) % Lymph % (Auto) % [place] % (Auto) % Eos % (Auto) % Baso % (Auto) % Neut # (Auto) (1.4-6.5) K/uL Lymph # (Auto) (1.2-3.4) K/uL [place] # (Auto) (0.11-0.59) K/uL Eos # (Auto) (0-0.5) K/uL Baso # (Auto) (0-0.2) K/uL Immature Gran # (Auto) (0.00-0.02) K/uL PT (9.0-12.0) Seconds INR (0.9-1.1) POC Sodium (135-144) mmol/L Sodium 136 (136-145) mmol/L POC Potassium (3.3-5.0) mmol/L Potassium 6.9 H* (3.5-5.1) mmol/L POC Chloride (101-112) mmol/L Chloride 104 (98-107) mmol/L Carbon Dioxide 21 (21-32) mmol/L POC Total CO2 (24-31) mmol/L Anion Gap 11.0 (3-11) POC Anion Gap (16-25) mmol/L POC BUN (7-18) mg/dl BUN 56 H (7-18) mg/dl Creatinine 10.10 H* (0.6-1.2) mg/dl POC Creatinine (0.6-1.3) mg/dl Est Cr Clr Drug Dosing Not Reportable Est GFR ( Amer) 4.3 ml/min Est GFR (Non-Af Amer) 3.7 ml/min BUN/Creatinine Ratio 5.6 L (10-20) Glucose 129 H (70-99) mg/dl POC Glucose (70-99) mg/dl POC Glucose (other) (70-99) mg/dl Lactate (0.4-2.0) mmol/L Calcium 7.2 L (8.5-10.1) mg/dl POC Ioniz Calcium [place] (1.12-1.32) mmol/l Ionized Calcium (1.12-1.32) mmol/L Magnesium 2.0 (1.8-2.4) mg/dl Total Bilirubin 0.8 (0.2-1) mg/dl AST 18 (15-37) U/L ALT 9 L (12-78) U/L Alkaline Phosphatase 160 H (45-117) U/L Troponin I < 0.015 (0-0.045) ng/ml NT-Pro-B Natriuret Pep 04800 H (0-900) pg/ml Total Protein 6.2 L (6.4-8.2) gm/dl Albumin 2.5 L (3.4-5.0) gm/dl Globulin 3.7 (2.5-4.0) gm/dl Albumin/Globulin Ratio 0.7 L (0.9-2) Lipase 192 (73-393) U/L Procalcitonin 2.32 H (0-0.5) ng/ml COVID-19 Eval Order SARS-CoV-2 (PCR) (Negative) Blood Type Antibody Screen 05/20/21 05/20/21 05/20/21 Range/Units 05:03 04:25 04:25 WBC 15.19 H (4.8-10.8) K/uL RBC 3.69 L (4.2-5.4) M/uL Hgb 10.1 L (12.0-16.0) g/dL POC Hgb (12.0-16.0) g/dl Hct 32.8 L (37-47) % POC Hct (37-47) % MCV 88.9 (80-100) fL MCH 27.4 (25-34) pg MCHC 30.8 L (32-36) g/dL RDW Std Deviation 57.1 H (36.4-46.3) fL RDW Coeff of Dave 17.4 H (11.5-14.5) % Plt Count 125 L (130-400) K/uL MPV 9.8 (7.4-10.4) fL Immature Gran % (Auto) 0.4 % Neut % (Auto) 89.5 % Lymph % (Auto) 3.0 % [place] % (Auto) 5.9 % Eos % (Auto) 1.0 % Baso % (Auto) 0.2 % Neut # (Auto) 13.60 H (1.4-6.5) K/uL Lymph # (Auto) 0.46 L (1.2-3.4) K/uL [place] # (Auto) 0.89 H (0.11-0.59) K/uL Eos # (Auto) 0.15 (0-0.5) K/uL Baso # (Auto) 0.03 (0-0.2) K/uL Immature Gran # (Auto) 0.06 H (0.00-0.02) K/uL PT (9.0-12.0) Seconds INR (0.9-1.1) POC Sodium (135-144) mmol/L Sodium (136-145) mmol/L POC Potassium (3.3-5.0) mmol/L Potassium (3.5-5.1) mmol/L POC Chloride (101-112) mmol/L Chloride (98-107) mmol/L Carbon Dioxide (21-32) mmol/L POC Total CO2 (24-31) mmol/L Anion Gap (3-11) POC Anion Gap (16-25) mmol/L POC BUN (7-18) mg/dl BUN (7-18) mg/dl Creatinine (0.6-1.2) mg/dl POC Creatinine (0.6-1.3) mg/dl Est Cr Clr Drug Dosing Est GFR ( Amer) ml/min Est GFR (Non-Af Amer) ml/min BUN/Creatinine Ratio (10-20) Glucose (70-99) mg/dl POC Glucose (70-99) mg/dl POC Glucose (other) (70-99) mg/dl Lactate (0.4-2.0) mmol/L Calcium (8.5-10.1) mg/dl POC Ioniz Calcium Gloria (1.12-1.32) mmol/l Ionized Calcium (1.12-1.32) mmol/L Magnesium (1.8-2.4) mg/dl Total Bilirubin (0.2-1) mg/dl AST (15-37) U/L ALT (12-78) U/L Alkaline Phosphatase (45-117) U/L Troponin I (0-0.045) ng/ml NT-Pro-B Natriuret Pep (0-900) pg/ml Total Protein (6.4-8.2) gm/dl Albumin (3.4-5.0) gm/dl Globulin (2.5-4.0) gm/dl Albumin/Globulin Ratio (0.9-2) Lipase (73-393) U/L Procalcitonin (0-0.5) ng/ml COVID-19 Eval Order Covid19 at [facility] SARS-CoV-2 (PCR) NEGATIVE (Negative) Blood Type Antibody Screen
[2021-05-20] MEDS ORDERED: XOPENEX/ATROVENT 1.25mg/0.5MG NEB COMBO NEB SCH (13:00)
[2021-05-20] MEDS: LEVALBUTEROL HCL 1.25 MG/3 ML NEB INH SCH ×2 (13:48→20:05)
[2021-05-20] MEDS: IPRATROPIUM BROMIDE NEB SOLN 0.02% 2.5 ML VIAL INH SCH ×3 (13:48→23:58)
[2021-05-20 14:09] LABS: iSTAT Hematocrit 30 % (37-47); iSTAT Hemoglobin 10.2 g/dl (12.0-16.0); iSTAT Potassium 6.4 mmol/L (3.3-5.0); iSTAT Sodium 135 mmol/L (135-144)
[2021-05-20 14:10] LABS: iSTAT Arterial Blood Gas HCO3 24 meg/L (19-24); iSTAT Arterial Blood Gas pCO2 40 mmHg (35-46); iSTAT Arterial Blood Gas pH 7.38 (7.35-7.45); iSTAT Arterial Blood Gas pO2 124 mmHg (80-95); iSTAT Carbon Dioxide 25 mmol/L (24-31)
[2021-05-20] MEDS: HEPARIN SOD (PORCINE) 1000 UNIT/ML IV SCH ×3 (14:30→18:25)
--- NOTE | 2021-05-20 15:39 | Pulmonary Consultation ---
Date of Consultation May 20, 2021 Assessment & Plan (1) Interstitial lung disease: (2) COPD (chronic obstructive pulmonary disease): (3) Chronic hypoxemic respiratory failure: (4) Multiple pulmonary nodules determined by computed tomography of [age]-year-old female with a past medical history of ESRD on hemodialysis, coronary artery disease, COPD, chronic hypoxemic respiratory failure and interstitial lung disease secondary to ill-defined vasculitis who presented to the hospital due to increasing shortness of breath and abdominal pain. I reviewed her PFTs, prior lung biopsies and numerous CT chest scans. She appears to have an ill-defined vasculitis/hypersensitivity pneumonitis. It is unclear if she has had a rheumatological evaluation in the past. I suspect that her issues are more chronic in nature. Her oxygen needs appear to be at baseline. I do not suspect exacerbation of her underlying ILD or COPD at this time. Her initial presentation most likely is related to volume overload from missed dialysis session. Recommend discontinuing steroid therapy at this time. She should have close follow-up with outpatient rheumatology and evaluation for vasculitis such as ANCA vasculitis. Interestingly, she notes very significant bird exposure history in her trailer. She may have underlying chronic hypersensitivity pneumonitis. Further outpatient follow-up with pulmonology will be beneficial including repeating PFTs. Will Breo Ellipta and Incruse Ellipta while inpatient. Recommend discharging her home on ICS/LABA/LAMA combination. No indication for antibiotics from a respiratory standpoint at this point. Procalcitonin was elevated, but difficult to interpret in the setting of ESRD. She is afebrile. Leukocytosis likely secondary to demargination from steroids. She received 125 mg IV methylprednisolone in the ER. Recommend repeat CT chest in 3 to 6 months given the slight increase in size of the right lower lobe lung nodule. Pulmonary will sign off. Thank you for the consultation. Please call with questions. History of Present Illness Reason for Consultation: Acute hypoxemic respiratory failure with abnormal CT chest Attending Physician: Raheem Hhan MD History of Present Illness 61-year-old female with a past medical history of chronic respiratory failure on 2 L of oxygen, hypertension, chronic diastolic heart failure, coronary artery disease, breast cancer status post chemo and radiation and ESRD on hemodialysis who presented to the hospital overnight due to worsening abdominal discomfort and melena. She also noted shortness of breath with cough. He was placed on BiPAP in the ER. Patient apparently missed her Saturday fer lysis treatment due to malfunction of the machine. She is found to be hyperkalemic on admission. It is notable that she has a history of chronic interstitial lung disease document in her chart. She was previously followed by GRACE Vivar and Dr. Bustos in the pulmonary clinic. Patient has a history of undergoing 3 different EBUS bronchoscopies and 2 different VATS lung biopsies. She improved he had diffuse alveolar hemorrhage, bronchoscopy performed by Dr. Nguyen. Lung biopsy March 2017 demonstrated recent and old alveolar hemorrhage. There was mention of focal vasculitis organization consistent with hemorrhagic syndrome. Patient relates that she smoked the age of 13 and quit smoking roughly 10 years ago. She is somewhat of a poor historian. She does not recall undergoing lung biopsies or bronchoscopies. She does relate that she lives in a trailer with her . She had at least 20 birds in her trailer up until 5 to 10 years ago. She was told to get rid of all her animals. She is not aware that she has fibrotic lung disease. She feels that her breathing is slowly improving, but is not back to baseline. She describes that she had a small amount hemoptysis earlier this morning, but this has since not recurred. She had a PFT completed on 07/07/2018. FEV1/FVC 68 FEV1 0.92 L, 41% FVC 1.35 L, 49% There was a 28% increased in FEV1 postbronchodilator TLC 81% RV/TLC 141% DLCO 41% Findings are consistent with severe obstructive lung disease and bronchial hyperresponsiveness. Allergies Allergy/AdvReac Type Severity Reaction Status Date / Time atropine Allergy Severe Dyspnea Verified 05/20/21 06:55 linezolid Allergy Severe Thrombocyto Verified 05/20/21 06:55 penia naproxen Allergy Severe Facial Verified 05/20/21 06:55 edema dipyridamole Allergy Intermediate "Bad Verified 05/20/21 06:55 reaction" per records vancomycin Allergy Intermediate Rash/tommy Verified 05/20/21 06:55 syndrome maprotiline Allergy Unknown Unknown Unverified 05/20/21 06:55 valacyclovir [From Valtrex] Allergy Unknown Unknown Unverified 05/20/21 06:55 aspirin AdvReac Intermediate Abdominal Verified 05/20/21 06:55 cramping salicylates AdvReac Unknown Unknown Unverified 05/20/21 06:55 Home Medications Medication Instructions Recorded Confirmed Type albuterol sulfate 2.5 mg INHALATION DIRECTED PRN 11/02/18 05/20/21 History hydralazine 25 mg tablet 25 mg PO TID 11/02/18 05/20/21 History levothyroxine 75 mcg tablet 75 mcg PO DAILYBB 11/02/18 05/20/21 History simvastatin 20 mg tablet 20 mg PO HS 11/02/18 05/20/21 History amlodipine 10 mg tablet 10 mg PO QAM 07/14/19 05/20/21 History pantoprazole 40 mg tablet,delayed 40 mg PO QAM 07/14/19 05/20/21 History release metoprolol succinate 25 mg 25 mg PO QAM 11/19/19 05/20/21 History tablet,extended release 24 hr ondansetron HCl 4 mg tablet 4 mg PO Q6H PRN #6 tab 07/23/20 05/20/21 Rx (Zofran) calcium acetate(phosphat bind) 667 667 mg PO ACHS 05/20/21 05/20/21 History mg capsule Patient History Medical History (Updated 05/20/21 @ 15:52 by Toño Duron MD) Anemia of chronic renal failure AV fistula LUE Breast cancer s/p chemo/xrt CAD (coronary artery disease) Chronic hypoxemic respiratory failure Cirrhosis per records COPD (chronic obstructive pulmonary disease) ESRD (end stage renal disease) dialysis Thursday//Thursday ([place]) GERD (gastroesophageal reflux disease) History of abdominal paracentesis Hyperlipidemia Hypertension Hypothyroidism Interstitial lung disease Multiple pulmonary nodules determined by computed tomography of lung Non-ischemic cardiomyopathy Non-small cell lung cancer (NSCLC) dx 04/2019; s/p XRT; RML On home oxygen therapy 2L O2 HS Poor historian Splenomegaly, not elsewhere classified w/ multiple hypodense masses stable on fall 2019 imaging and present since at least 2005 Thrombocytopenia chronic, 2/2 cirrhosis. Surgical History H/O partial thyroidectomy GOITER History of bronchoscopy History of cardiac cath 2013- NO STENTS History of colonoscopy History of esophagogastroduodenoscopy (EGD) History of tooth extraction Hx of lumpectomy LEFT S/P arteriovenous (AV) fistula creation S/P laparoscopic cholecystectomy 06/2020 [facility] Family History Other Family history non-contributory No family history of adverse response to anesthesia Social History Smoking Status: Former smoker Tobacco Type: Cigarettes Smoking End Date: 2009; Second Hand Exposure: No; Tobacco Cessation Education Requested by Patient: No Hx Alcohol Use: No Hx Substance Use: No Preferred Language: Montserratian Communication Ability: Effective Correction Worker Required: No Beliefs That Will Affect Care: None marital status: Current Living Situation: Spouse current occupational status: disabled Feels Safe at Home: Yes Safety Concerns: Feels Safe At This Time Assistive Devices: Nebulizer and Oxygen - at Night Review of Systems Review of Systems: All systems reviewed & are unremarkable except as noted in HPI & below Physical Exam Physical Exam: Constitutional: Frail appearing female no apparent distress. Resting in bed comfortably. Undergoing dialysis. Eyes: Pupils are equal round and reactive to light. Conjunctivae are normal. Anicteric sclera. Ears nose, mouth and throat: No obvious deformities. Neck: Trachea is midline. Visual inspection is normal. Respiratory: Prolonged phase of exhalation. Diminished lung sounds. Cardiovascular: Regular rate and rhythm. No murmurs. No edema. Gastrointestinal: Normal bowel sounds, soft, nontender and nondistended. No hepatosplenomegaly noted. Musculoskeletal: No cyanosis. Patient is able to move all extremities. Diminished strength throughout. Skin: No rashes, warm dry and intact. Neurologic: No obvious focal neurological deficits seen. Psychiatric: Alert and oriented x3 with a euthymic affect. Results & Data Results & Data ([facility]) Vital Signs (Past 12 Hours) Vital Signs Temp Pulse Pulse Pulse Resp BP BP 05/20/21 14:20 94 H 134/69 05/20/21 14:00 90 140/65 05/20/21 13:40 89 138/66 05/20/21 13:34 90 134/66 05/20/21 13:23 98.4 F 91 H 05/20/21 12:20 98.4 F 91 H 18 148/54 H 05/20/21 11:13 80 22 05/20/21 08:54 30 H 05/20/21 08:20 97.7 F 96 H 20 163/76 H 05/20/21 08:00 94 H 05/20/21 07:06 90 19 05/20/21 06:37 96 H 20 150/63 H 05/20/21 05:34 91 H 22 05/20/21 05:12 94 H 27 H 156/63 H 05/20/21 04:43 97 H 24 05/20/21 04:25 98.1 F 98 H 28 H 146/94 H Pulse Ox 05/20/21 14:20 05/20/21 14:00 05/20/21 13:40 05/20/21 13:34 05/20/21 13:23 05/20/21 12:20 97 05/20/21 11:13 96 05/20/21 08:54 05/20/21 08:20 98 05/20/21 08:00 05/20/21 07:06 98 05/20/21 06:37 98 05/20/21 05:34 100 05/20/21 05:12 99 05/20/21 04:43 100 05/20/21 04:25 98 Vital signs, labs and personally reviewed PG Care Time/CCT Total # of Minutes Spent Total Time Spent with Patient: Total time spent is greater than 50% in coordination of care (as documented) at patient's floor/unit and/or counseling patient: Coding Level of Care Code 90302 Inpt Consult Level 5 Diagnoses Interstitial lung disease J84.9 COPD (chronic obstructive pulmonary disease) J44.9 Chronic hypoxemic respiratory failure J96.11 Multiple pulmonary nodules determined by computed tomography of lung R91.8
--- NOTE | 2021-05-20 15:42 | Electrocardiogram Report ---
Test Reason : Blood Pressure : / mmHG Vent. Rate : 095 BPM Atrial Rate : 095 BPM P-R Int : 164 ms QRS Dur : 088 ms QT Int : 372 ms P-R-T Axes : 046 025 103 degrees QTc Int : 467 ms Poor data quality, interpretation may be adversely affected Normal sinus rhythm Possible Left atrial enlargement Anteroseptal infarct (cited on or before 26-MAR-2017) T wave abnormality, consider lateral ischemia Abnormal ECG When compared with ECG of 12-FEB-2021 04:59, T wave inversion more evident in Lateral leads Confirmed by Denny Chris ([id number]) on 05/20/2021 3:41:32 PM Referred By: REFERRED SELF Confirmed By:Denny Chris
[2021-05-20] MEDS ORDERED: PIPERACILLIN/TAZOBACTAM 3.375 GM in DEXTROSE 5% 100 ML IV SCH (17:00)
[2021-05-20] MEDS: hydrALAZINE HCL 25 MG TAB PO SCH ×3 (18:18→21:10)
[2021-05-20] MEDS: METOPROLOL SUCC 25MG EXT REL TAB PO SCH (18:18)
[2021-05-20] MEDS: amLODIPine BESYLATE 5 MG TAB PO SCH (18:19)
[2021-05-20 19:53] LABS: Hematocrit (blood only) 32.9 % (37-47); Hemoglobin 10.1 g/dL (12.0-16.0)
[2021-05-20 20:26] LABS: Calcium 8.6 mg/dl (8.5-10.1); Creatinine Clr Calc Pharmacy 12.7 ml/min; Est GFR (African American) 15.6 ml/min; Est GFR (Non-African American) 13.5 ml/min
[2021-05-20] MEDS ORDERED: DOXYCYCLINE HYCLATE 100 MG CAP PO SCH ×2 (21:00→23:00)
[2021-05-20] MEDS: PANTOprazole 40 MG in SYRINGE 0 ML IV SCH (21:10)
[2021-05-20] MEDS: SIMVASTATIN 20 MG TAB PO SCH (21:11)
[2021-05-20 21:33] LABS: BUN Creatinine Ratio 4.5 (10-20)
[2021-05-20 21:34] LABS: Potassium 3.8 mmol/L (3.5-5.1)
[2021-05-21] MEDS: LEVOTHYROXINE SODIUM 75 MCG TABLET PO SCH (05:43)
[2021-05-21 07:03] LABS: Hematocrit (blood only) 29.2 % (37-47); Hemoglobin 8.6 g/dL (12.0-16.0); Mean Corpuscular Hemoglobin 27.4 pg (25-34); Mean Corpuscular Hgb Conc 29.5 g/dL (32-36); RDW Coefficient of Variation 17.5 % (11.5-14.5); RDW Standard Deviation 59.6 fL (36.4-46.3); Red Blood Count 3.14 M/uL (4.2-5.4); White Blood Count 6.28 K/uL (4.8-10.8)
[2021-05-21] MEDS: IPRATROPIUM BROMIDE NEB SOLN 0.02% 2.5 ML VIAL INH SCH (07:25)
[2021-05-21] MEDS: LEVALBUTEROL HCL 1.25 MG/3 ML NEB INH SCH ×2 (07:25)
[2021-05-21 07:32] LABS: Mean Platelet Volume 10.7 fL (7.4-10.4); Platelet Count 92 K/uL (130-400)
[2021-05-21 07:33] LABS: Hypochromasia Present; Immature Granulocytes # (auto) 0.02 K/uL (0.00-0.02); Immature Granulocytes % (auto) 0.3 %; Lymphocytes # (auto) 0.51 K/uL (1.2-3.4); Lymphocytes % (auto) 8.1 %; Monocytes % (auto) 3.2 %; Neutrophils # (auto) 5.55 K/uL (1.4-6.5); Neutrophils % (auto) 88.4 %; Platelet Estimate Decreased (Normal)
[2021-05-21 07:49] LABS: BUN Creatinine Ratio 7.2 (10-20); Calcium 7.8 mg/dl (8.5-10.1); Creatinine Clr Calc Pharmacy 9.9 ml/min; Est GFR (African American) 11.7 ml/min; Est GFR (Non-African American) 10.1 ml/min; Potassium 5.4 mmol/L (3.5-5.1)
[2021-05-21] MEDS: CALCIUM ACETATE 667 MG CAP/TAB PO SCH ×5 (07:54→20:38)
[2021-05-21] MEDS ORDERED: HEPARIN SOD (PORCINE) 1000 UNIT/ML IV ONE (08:10)
[2021-05-21] MEDS ORDERED: SODIUM CHLORIDE 0.9% 1000ML 1,000 ML IV PRN ×2 (08:10→11:37)
[2021-05-21] MEDS: FLUTICASONE/VILANTEROL 200/25MCG 14 PUFFS/INHALER INH SCH (08:47)
[2021-05-21] MEDS: UMECLIDINIUM BROMIDE 62.5MCG/BLISTER 7 PUFFS/INHALER INH SCH (08:48)
[2021-05-21] MEDS: PANTOprazole 40 MG in SYRINGE 0 ML IV SCH ×2 (08:49→20:34)
[2021-05-21] MEDS: METOPROLOL SUCC 25MG EXT REL TAB PO SCH (09:00)
[2021-05-21] MEDS ORDERED: predniSONE 20 MG TAB PO SCH (09:00)
[2021-05-21] MEDS: hydrALAZINE HCL 25 MG TAB PO SCH ×3 (09:01→20:34)
[2021-05-21] MEDS: amLODIPine BESYLATE 5 MG TAB PO SCH (09:01)
[2021-05-21] MEDS ORDERED: EPOETIN ALFA 10,000 UNITS/ML VIAL IV SCH (12:00)
[2021-05-21] MEDS: HEPARIN SOD (PORCINE) 1000 UNIT/ML IV SCH ×3 (15:26→21:11)
--- NOTE | 2021-05-21 17:40 | Hospitalist Progress Note ---
Date of Service May 21, 2021 Assessment & Plan (1) Acute hypoxemic respiratory failure: Plan: She is 1-year-old female with PMH of chronic respiratory failure secondary to COPD/ILD on 2 L home oxygen mostly at night, HTN, chronic diastolic HF secondary to nonischemic CM [2020 TTE 55 to 60%], CAD/PVD, ESRD on HD, breast cancer status post surgery/chemoradiation, NSCLC status post radiation, tobacco abuse [started at age 13/15 up to 10 to 11 years ago, average of 1 PPD], GERD, gastroparesis, cirrhosis, hypothyroidism, chronic anemia [baseline hemoglobin 9], chronic thrombocytopenia and pulmonary vasculitis presented 05/20 to our ED with complaint of worsening chronic abdominal discomfort followed by melena. Also see complaint of shortness of breath for 2 days and had hemoptysis while in ED. Patient has baseline cough since couple of months with clear sputum which has slightly worsened since last few days. She has missed her dialysis last Thursday. She is being managed for the following: #. Acute on chronic hypoxemic respiratory failure [chronic rash secondary to COPD and ILD on 2 L home oxygen mostly at night] #. Diastolic heart failure #. ESRD on HD Admitting CXR: Trace B/L pleural effusion. Progression of interstitial thickening and bilateral opacitiesinfectious versus pulmonary edema. Redemonstration of the right middle lobe masslike abnormality. Admitted CT chest: Cardiomegaly, interstitial pulmonary edema, increased groundglass opacities compared to prior exam. Trace bilateral pleural effusion. Redemonstration of numerous irregular hyperdense foci within the lower lobes greatest within the right lower lobe and right middle lobe with occlusion of the right middle lobe bronchi. Slight increase in the size of 3.4 x 2.4 cm right lower lobe hyperdense focus since prior CT. Admitting WBC 15 point 9K, pro-Laith 2.32 Most likely secondary to pulmonary edema on the background of missed hemodialysis, small chance of pulm infection. Patient back to her baseline oxygen requirement 2 L after hemodialysis Pulmonology on board: Do not suspect exacerbation of her underlying ILD or COPD. No need for steroid therapy or antibiotics. Recommends close follow-up with outpatient rheumatology and pulmonology for further evaluation [possibility of chronic hypersensitivity pneumonitis secondary to significant bird exposure history]. DC recommendation ICS/LABA/LAMA combination. Recommends repeating CT chest in 3 to 6 months given the slight increase in size of the right lower lobe lung nodule. Nephrology on board: Patient undergoing hemodialysis. Patient is improved with her respiratory status. #. Hypokalemia #. ESRD on HD #. Hypocalcemia Admitting potassium 6.7 status post potassium cocktail x1 Improving after hemodialysis Follow-up as needed. #. Melena #. Gastric polyp and recent EGD #. Cirrhosis Admitting CTAP: No bowel obstruction, cirrhosis, trace pelvic ascites FOBT positive, admitting hemoglobin 10.1, history of chronic anemia, hemoglobin stable around 9 GI consulted, monitor hemoglobin daily. Patient had 2 small bowel movements on 05/20 and 05/21 with some blood in it, reached out to GI for recommendation on discharge. Continue with PPI Monitor hemoglobin daily, transfuse for hemoglobin less than 8 or for symptomatic anemia. #. CAD/COPD/history of breast cancer status post treatments/NSCLC/past tobacco abuse: Stable, continue home meds #. DVT prophylaxis: SCDs, history of thrombocytopenia Family contact: Mr. Peterson Macedo - [phone] Disposition: Possibly tomorrow to home if GI clears and no new issues arises. Admission and Anticipated Discharge Date Admission Date: May 20, 2021 Subjective Patient is lying in bed, semiupright, on 2 L nasal cannula oxygen, denies acute events overnight. Patient reports 2 bowel movement with small amount of blood in it since yesterday. We will trend hemoglobin. Also complains of baseline belly pain and heartburn. Denies other review of symptoms. Physical Exam Physical Exam: GENERAL: Alert and oriented x3. NAD, on 2 L HEENT: No pallor, no icterus. Pupils equal, round and reactive to light. Oral mucosa moist. NECK: No JVD, no neck masses. HEART: S1 and S2 heard. Regular rate and rhythm. No murmur, no gallop. RESPIRATORY SYSTEM: Normal AP diameter. No accessory muscle use. No wheezing, crackles bibasilar ABDOMEN: Soft, bowel sounds present, mild epigastric tenderness, no distention. CENTRAL NERVOUS SYSTEM: Alert and oriented x3. No facial droop. Speech is clear. Obeys simple commands. Moves extremities. EXTREMITIES: No edema, no erythema seen. Results & Data Results & Data ([facility]) Vital Signs (Past 12 Hours) Vital Signs Temp Pulse Pulse Resp BP BP Pulse Ox 05/21/21 17:00 78 132/45 L 05/21/21 16:40 81 156/60 H 05/21/21 16:20 70 132/54 L 05/21/21 16:00 73 135/53 L 05/21/21 15:40 77 118/44 L 05/21/21 15:20 79 121/47 L 05/21/21 15:00 85 121/51 L 05/21/21 14:42 85 101/53 L 05/21/21 14:39 85 88/49 L 05/21/21 14:20 84 78/40 L 05/21/21 14:05 37.2 C 85 05/21/21 11:50 36.5 C 84 20 136/50 L 97 05/21/21 11:13 94 05/21/21 07:46 36.5 C 82 18 125/57 L 99 05/21/21 07:25 81 20 98
--- NOTE | 2021-05-21 18:23 | Nephrology Progress Note ---
Date of Service May 21, 2021 Assessment & Plan (1) ESRD (end stage renal disease) on dialysis: Plan: for routine dialysis today; no vascular access issues; next HD on 05/23 as clinical needs dictate (2) Hyperkalemia: Plan: medically managed pending dialysis; improved adn safe now but K still above goal (3) Anemia: Plan: 10K epo q tx, as per OP routine; despite hemoptysis, will give routine heparin on tx and monitor for bleeding concerns Admission and Anticipated Discharge Date Admission Date: May 20, 2021 Subjective pt seen and evaluated at 1030 approximately; no overnight events; tolerated 2.5 L UF; denies sob; no overnight N or abd pain; no further hemoptysis; eager for d/c for family wedding Review of Systems Review of Systems: All systems reviewed & are unremarkable except as noted in Subjective Physical Exam Constitutional: well developed, + cachectic, + frail appearing and cooperative; no acute distress Eyes: EOM intact bilaterally ENMT: Ears: no external ear abnormality Nose: no external nose abnormality Mouth: + dry oral mucous membranes Neck: no nuchal rigidity Respiratory: + labored breathing and able to speak in complete sentences (but does stop to breathe often/noticeably); no respiratory distress and expiratory p hase not prolonged Auscultation: + crackles, + rhonchi and + wheezes Cardiovascular: Rate/Rhythm: regular rate and regular rhythm Extremities: + AV fistula (+T/b L prox UE); no edema Gastrointestinal (Abdomen): Inspection/Auscultation: normal bowel sounds Percussion/Palpation: abdomen soft; abdomen nontender Musculoskeletal: Extremities: strength 5/5 throughout Skin: no rashes, warm and dry Psychiatric: Orientation: oriented x 3 and cooperative Results & Data ([facility]) Vital Signs (Past 12 Hours) Vital Signs Temp Pulse Pulse Resp BP BP Pulse Ox 05/21/21 17:00 78 132/45 L 05/21/21 16:40 81 156/60 H 05/21/21 16:20 70 132/54 L 05/21/21 16:00 73 135/53 L 05/21/21 15:40 77 118/44 L 05/21/21 15:20 79 121/47 L 05/21/21 15:00 85 121/51 L 05/21/21 14:42 85 101/53 L 05/21/21 14:39 85 88/49 L 05/21/21 14:20 84 78/40 L 05/21/21 14:05 37.2 C 85 05/21/21 11:50 36.5 C 84 20 136/50 L 97 05/21/21 11:13 94 05/21/21 07:46 36.5 C 82 18 125/57 L 99 05/21/21 07:25 81 20 98 Laboratory Results 05/21/21 06:07 05/21/21 06:07
[2021-05-21 19:43] LABS: Hematocrit (blood only) 28.8 % (37-47); Hemoglobin 8.6 g/dL (12.0-16.0)
[2021-05-21] MEDS: SIMVASTATIN 20 MG TAB PO SCH (20:34)
[2021-05-22] MEDS: LEVOTHYROXINE SODIUM 75 MCG TABLET PO SCH (06:01)
[2021-05-22 06:36] LABS: Hematocrit (blood only) 31.5 % (37-47); Hemoglobin 9.1 g/dL (12.0-16.0); Mean Corpuscular Hemoglobin 27.4 pg (25-34); Mean Corpuscular Hgb Conc 28.9 g/dL (32-36); Mean Corpuscular Volume 94.9 fL (80-100); Mean Platelet Volume 10.4 fL (7.4-10.4); Platelet Count 97 K/uL (130-400); RDW Coefficient of Variation 17.3 % (11.5-14.5); RDW Standard Deviation 60.3 fL (36.4-46.3); Red Blood Count 3.32 M/uL (4.2-5.4); White Blood Count 5.96 K/uL (4.8-10.8)
[2021-05-22 07:16] LABS: Calcium 7.7 mg/dl (8.5-10.1); Creatinine Clr Calc Pharmacy 17.7 ml/min; Est GFR (African American) 20.3 ml/min; Est GFR (Non-African American) 17.5 ml/min; Magnesium 2.1 mg/dl (1.8-2.4); Potassium 3.5 mmol/L (3.5-5.1)
[2021-05-22] MEDS: UMECLIDINIUM BROMIDE 62.5MCG/BLISTER 7 PUFFS/INHALER INH SCH (07:32)
[2021-05-22] MEDS: FLUTICASONE/VILANTEROL 200/25MCG 14 PUFFS/INHALER INH SCH (07:32)
[2021-05-22] MEDS: hydrALAZINE HCL 25 MG TAB PO SCH (07:32)
[2021-05-22] MEDS: METOPROLOL SUCC 25MG EXT REL TAB PO SCH (07:33)
[2021-05-22] MEDS: PANTOprazole 40 MG in SYRINGE 0 ML IV SCH (07:33)
[2021-05-22] MEDS: amLODIPine BESYLATE 5 MG TAB PO SCH (07:33)
[2021-05-22] MEDS: CALCIUM ACETATE 667 MG CAP/TAB PO SCH ×2 (07:33→12:13)
--- NOTE | 2021-05-22 11:18 | Discharge Summary ---
Date of Service May 22, 2021 Admission HPI Per Admitting Provider Chief Complaint: Shortness of breath Primary Care Provider: César Barnes MD History obtained from patient, family, and records. Medical history significant for chronic respiratory failure secondary to [employer] D/ILD on home O2, hypertension, chronic diastolic HF 2 to non-ischemic cardiomyopathy (TTE EF 55-60%, 2019), CAD/PVD as per records, ESRD on hemodialysis, breast cancer sp surgery/chemoradiation, non-small cell lung cancer status post radiation, past tobacco abuse, GERD, gastroparesis as per records, hypothyroidism, cirrhosis, chronic anemia (baseline hemoglobin 9), chronic thrombocytopenia, hx pulmonary vasculitis as per records. Last confinement February 2021 for respiratory failure secondary to cardiorenal syndrome, COPD/ILD exacerbation. Patient missed dialysis last Thursday because dialysis machine at [facility] was broken. Patient directed to [facility] for dialysis but failed to comply. 2 days ago, patient noted worsening of chronic abdominal discomfort followed by melena. No fever, no chills. No hematemesis. Patient later noted shortness of breath and hemoptysis symptoms. No fever, no chills. Denies aspiration. Not sure about recent sick COVID-19 contacts. At the ER, BiPAP initiated for respiratory distress. MEDICAL HISTORY: As above. Hemodialysis ThursdayMarch, EGD Gastric polyps, iron staining duodenum Colonoscopy internal hemorrhoids, polyps SURGERIES: Mastectomy, thyroidectomy, vascular procedures, back surgery. FAMILY HISTORY: Breast cancer, stroke. PERSONAL AND SOCIAL HISTORY: Past tobacco abuse. No chronic intake of alcohol. Lives with Admission Exam Per Admitting Provider GENERAL: uncomfortable, chronically ill, underweight, minimal respiratory distress SKIN: Pallor , warm HEENT: Pale palpebral conjunctivae, ptosis, dry buccal mucosa, BiPAP in place NECK : Supple, no tenderness CHEST : Bilateral rhonchi, expiratory wheezes , no tenderness HEART : RRR, systolic murmur ABDOMEN: Some distention, epigastric tenderness EXTREMITIES : No LE swelling/tenderness, no other conspicuous deformities noted NEUROLOGIC : Coherent, no facial asymmetry, no other gross focality Principal Diagnosis Acute on chronic hypoxic respiratory failure secondary to missed dialysis ESRD on hemodialysis Hyperkalemiaresolved Cirrhosis, melena Discharge Exam GENERAL: Alert and oriented x3. NAD, on 2 L HEENT: No pallor, no icterus. Pupils equal, round and reactive to light. Oral mucosa moist. NECK: No JVD, no neck masses. HEART: S1 and S2 heard. Regular rate and rhythm. No murmur, no gallop. RESPIRATORY SYSTEM: Normal AP diameter. No accessory muscle use. No wheezing, no to minimal crackles appreciated ABDOMEN: Soft, bowel sounds present, mild epigastric tenderness, no distention. CENTRAL NERVOUS SYSTEM: Alert and oriented x3. No facial droop. Speech is clear. Obeys simple commands. Moves extremities. EXTREMITIES: No edema, no erythema seen. Discharge Data Allergies Allergy/AdvReac Type Severity Reaction Status Date / Time atropine Allergy Severe Dyspnea Verified 05/20/21 06:55 linezolid Allergy Severe Thrombocyto Verified 05/20/21 06:55 penia naproxen Allergy Severe Facial Verified 05/20/21 06:55 edema dipyridamole Allergy Intermediate "Bad Verified 05/20/21 06:55 reaction" per records vancomycin Allergy Intermediate Rash/tommy Verified 05/20/21 06:55 syndrome maprotiline Allergy Unknown Unknown Unverified 05/20/21 06:55 valacyclovir [From Valtrex] Allergy Unknown Unknown Unverified 05/20/21 06:55 aspirin AdvReac Intermediate Abdominal Verified 05/20/21 06:55 cramping salicylates AdvReac Unknown Unknown Unverified 05/20/21 06:55 Consultations 05/20/21 05:20 ED Decision to Admit Stat 05/20/21 06:10 Consult Nephrology Routine 05/20/21 10:59 Consult Pulmonology Routine 05/20/21 11:00 Consult Gastroenterology Routine Ordered Studies 05/20/21 05:49 CT abd pelvis wo con Urgent CT chest diagnostic wo con Urgent Hospital Course (1) Acute hypoxemic respiratory failure: She is 1-year-old female with PMH of chronic respiratory failure secondary to COPD/ILD on 2 L home oxygen mostly at night, HTN, chronic diastolic HF secondary to nonischemic CM [2020 TTE 55 to 60%], CAD/PVD, ESRD on HD, breast cancer status post surgery/chemoradiation, NSCLC status post radiation, tobacco abuse [started at age 14/15 up to 10 to 11 years ago, average of 1 PPD], GERD, gastroparesis, cirrhosis, hypothyroidism, chronic anemia [baseline hemoglobin 9], chronic thrombocytopenia and pulmonary vasculitis presented 05/20 to our ED with complaint of worsening chronic abdominal discomfort followed by melena. Also see complaint of shortness of breath for 2 days and had hemoptysis while in ED. Patient has baseline cough since couple of months with clear sputum which has slightly worsened since last few days. She has missed her dialysis last Thursday. She is being managed for the following: #. Acute on chronic hypoxemic respiratory failure [chronic rash secondary to COPD and ILD on 2 L home oxygen mostly at night] #. Diastolic heart failure #. ESRD on HD Admitting CXR: Trace B/L pleural effusion. Progression of interstitial thickening and bilateral opacitiesinfectious versus pulmonary edema. Redemonstration of the right middle lobe masslike abnormality. Admitted CT chest: Cardiomegaly, interstitial pulmonary edema, increased groundglass opacities compared to prior exam. Trace bilateral pleural effusion. Redemonstration of numerous irregular hyperdense foci within the lower lobes greatest within the right lower lobe and right middle lobe with occlusion of the right middle lobe bronchi. Slight increase in the size of 3.4 x 2.4 cm right lower lobe hyperdense focus since prior CT. Admitting WBC 15 point 9K, pro-Laith 2.32 Most likely secondary to pulmonary edema on the background of missed hemodialysis Patient back to her baseline oxygen requirement 2 L after hemodialysis Pulmonology on board: Do not suspect exacerbation of her underlying ILD or COPD. No need for steroid therapy or antibiotics. Recommends close follow-up with outpatient rheumatology and pulmonology for further evaluation [possibility of chronic hypersensitivity pneumonitis secondary to significant bird exposure history]. DC recommendation ICS/LABA/LAMA combination. Recommends repeating CT chest in 3 to 6 months given the slight increase in size of the right lower lobe lung nodule. Nephrology on board: Patient undergoing hemodialysis. Patient is improved with her respiratory status. #. Hyperkalemia #. ESRD on HD #. Hypocalcemia Admitting potassium 6.7 status post potassium cocktail x1 Hyperkalemia resolved. #. Melena #. Gastric polyp and recent EGD #. Cirrhosis Admitting CTAP: No bowel obstruction, cirrhosis, trace pelvic ascites FOBT positive, admitting hemoglobin 10.1, history of chronic anemia, hemoglobin stable around 9 Patient had 2 small bowel movements on 05/20 and 05/21 with some blood in it, for the bowel movements without blood per patient. GI aware and is okay with discharge with outpatient follow-up. Continue with PPI daily. Follow-up with GI as an outpatient. #. CAD/COPD/history of breast cancer status post treatments/NSCLC/past tobacco abuse: Stable, continue home meds #. DVT prophylaxis: SCDs, history of thrombocytopenia Family contact: Mr. Peterson Macedo - [phone] Patient discharged to home with following instruction at the time discharge: Take medications as prescribed. Follow-up with your primary care physician within a week time. Follow-up with lung doctor and rheumatology As an outpatient for further evaluation of your lung condition. Follow-up with GI doctor as an outpatient. You need repeat CT scan in 3 to 6 months given the slight increase in size of the right lower lobe lung nodule. Continue hemodialysis as scheduled. Take pantoprazole daily as described. Breo Ellipta and Incruse Ellipta has been added to her medication. Take as prescribed. Total Time Total Time Spent Total Time Spent (In Minutes): 45 Discharge Plan Discharge Items Patient Disposition: Home - Self-Care Reason For Visit: RESP FAILURE Discharge Diagnosis: Acute on chronic hypoxic respiratory failure secondary to missed dialysis ESRD on hemodialysis Hyperkalemiaresolved Cirrhosis, melena Condition on Discharge: Fair Activity: Resume your previous activity Non-emergency contact: Primary Care Provider Call non-emergency contact if: you have any medication questions, your symptoms worsen, your pain is not controlled and your rectal temperature is above 100.4 Follow-up/Referrals: Gisell Paulson DO [Physician] - (Date & Time 05/30/2021 10:20 AM Provider Gisell Paulson DO Department Gastroenterology, [facility] ) César Barnes MD [Primary Care Provider] - (Date & Time 05/28/2021 10:20 AM Provider Ileana Rainey MD Department [facility] ) Diet: Other - See Diet Comment Diet Comment: Renal diet Addtl Attending Provider Instructions: Take medications as prescribed. Follow-up with your primary care physician within a week time. Follow-up with lung doctor and rheumatology As an outpatient for further evaluation of your lung condition. Follow-up with GI doctor as an outpatient. You need repeat CT scan in 3 to 6 months given the slight increase in size of the right lower lobe lung nodule. Continue hemodialysis as scheduled. Take pantoprazole daily as described. [place] Ellipta and Incruse Ellipta has been added to her medication. Take as prescribed. Pending Studies at Discharge: Yes (Admitting blood culture.) Stand-Alone Forms: My [facility], Smoking Cessation Medications and DC Order Prescriptions: New Incruse Ellipta 62.5 mcg/actuation Blister With Device 1 puff inhalation DAILY 30 Days Qty: 30 RF: 0 Breo Ellipta 200-25 mcg/dose Blister With Device 1 puff inhalation DAILY 30 Days Qty: 30 RF: 0 Continued metoprolol succinate 25 mg Tablet Extended Release 24 Hr 25 mg PO QAM RF: 0 ondansetron HCl [Zofran] 4 mg tablet 4 mg PO Q6H PRN (Reason: nausea and vomiting) Qty: 6 RF: 0 albuterol sulfate 2.5 mg /3 mL (0.083 %) Solution For Nebulization 2.5 mg INHALATION DIRECTED PRN (Reason: Shortness Of Breath Or Wheezing) RF: 0 hydralazine 25 mg Tablet 25 mg PO TID RF: 0 levothyroxine 75 mcg Tablet 75 mcg PO DAILYBB RF: 0 simvastatin 20 mg Tablet 20 mg PO HS RF: 0 amlodipine 10 mg Tablet 10 mg PO QAM RF: 0 pantoprazole 40 mg Tablet,Delayed Release (Dr/Ec) 40 mg PO QAM RF: 0 calcium acetate(phosphat bind) 667 mg capsule 667 mg PO ACHS RF: 0 Discharge Orders: Discharge Order (Routine); Ordered 05/22/21 Ordered By: Raheem Parker/Other Patient Handouts: COPD Using Inhalers, What Is COPD? Admission Data Admit Date/Time: 05/20/21 06:03 Attending Provider: Raheem Hahn Admit Provider: Darell Cuello Primary Care Provider: César Barnes Other Providers: Darell Cuello ; Priscilla Blood ; Toño Duron ; Obie Hoyt Other Interventions: Discharge Summary Assessment (RN) Last Done: 05/22/21 12:59
== END 2021-05-22 14:20 | disposition home or self-care (01) | DRG 189 ==
LOC: ED 04:21 → 2S 06:03 → SUATTDRO 06:03 → 2S 07:14

== ENCOUNTER 2022-12-14 19:21 | Inpatient (IN) ==
[2022-12-14] MEDS ORDERED: LORazepam 2 MG/1 ML VIAL IV STA (20:04)
[2022-12-14] MEDS ORDERED: SODIUM CHLORIDE 0.9% 1000ML 1,000 ML IV ONE (20:05)
[2022-12-14] MEDS ORDERED: LORazepam 2 MG/1 ML VIAL ONE (20:06)
[2022-12-14] MEDS ORDERED: levETIRAcetam 1,000 MG in 0.9 % SODIUM CHLORIDE 100 ML IV STA (20:07)
[2022-12-14 20:51] LABS: Basophils # (auto) 0.03 K/uL (0-0.2); Basophils % (auto) 0.4 %; Eosinophils % (auto) 1.3 %; Hematocrit (blood only) 40.1 % (37.0-47.0); Hemoglobin 11.8 g/dl (12.0-16.0); Immature Granulocytes # (auto) 0.16 K/uL (0.01-0.20); Lymphocytes # (auto) 0.92 K/uL (1.2-3.4); Lymphocytes % (auto) 11.6 %; Mean Corpuscular Hemoglobin 25.4 pg (25.0-34.0); Mean Corpuscular Hgb Conc 29.4 g/dL (32.0-36.0); Mean Corpuscular Volume 86.2 fL (80.0-100.0); Monocytes # (auto) 0.54 K/uL (0.11-0.59); Monocytes % (auto) 6.8 %; Neutrophils # (auto) 6.21 K/uL (1.40-6.50); Neutrophils % (auto) 77.9 %; Platelet Count 160 K/uL (130-400); RDW Standard Deviation 62.7 fL (36.4-46.3); Red Blood Count 4.65 M/uL (4.20-5.40); White Blood Count 7.96 K/ul (4.8-10.8)
[2022-12-14 21:17] LABS: Albumin Level 3.6 gm/dl (3.4-5.0); Bilirubin,Total 1.3 mg/dl (0.2-1.0); Calcium 8.7 mg/dl (8.6-10.3); Potassium 5.8 mmol/L (3.5-5.1)
[2022-12-14] MEDS ORDERED: OPTIRAY 350 100ml IV ONE (21:21)
[2022-12-14 21:33] LABS: Albumin Globulin Ratio 1.2 (0.9-2); Est GFR (African American) 6.8 ml/min; Est GFR (Non-African American) 5.8 ml/min; Globulin 3.1 gm/dl (2.5-4.0); Total Protein 6.7 gm/dl (6.0-8.3)
--- NOTE | 2022-12-14 22:18 | CT Scan Report ---
Exam(s): CT HEAD Without Contrast History: Reason for exam: Seizure. Exam: CT HEAD Without Contrast Technique more: CTDI is 37.75 mGy and DLP is 614.27 mGy-cm. Technique more: Automated exposure control was utilized for the study. A dose lowering technique was utilized adhering to the principles of ALARA. Comparison: CT head 04/30/2015 Findings: Right superior frontal probable 1 cm mass with surrounding extensive vasogenic edema. Metastases is suspected. Recommend follow-up MRI with contrast. Mild effacement of the sulci. Negative for midline shift. Remaining aguilar-white matter differentiation is normal. Paranasal sinuses, mastoid air cells are clear. Trace fluid in the inferior left mastoid air cells. Mild cerumen in left greater than right external auditory canal. Impression: 1. Right superior frontal 1 cm slightly hyperdense mass with extensive surrounding vasogenic edema. Suspect metastases or tumor. Recommend follow-up MRI with contrast. Electronically signed by: Francisco Gallagher MD 12/14/22 22:17 PM
[2022-12-14] MEDS ORDERED: DEXAMETHASONE SOD INJ 4 MG/ML VIAL IV STA (22:22)
--- NOTE | 2022-12-14 22:36 | CT Scan Report ---
Exam(s): CT ABDOMEN + PELVIS With Contrast IV Amt: 86ml History: Reason for exam: Renal failure, abd pain, breast CA. Exam: CT ABDOMEN + PELVIS With Contrast Technique more: CTDI is 37.75 mGy and DLP is 614.27 mGy-cm. Patient received 86ml of IV contrast Technique more: Automated exposure control was utilized for the study. A dose lowering technique was utilized adhering to the principles of ALARA. Comparison: CT abdomen pelvis 05/03/2014 Findings: Lung bases: Partially seen large necrotic mass measuring approximately 7. 5 cm overlying the right hemidiaphragm. Additional masses partially included in the field of view. Basilar increased septal thickening is seen. Recommend correlation with CT chest and/or perhaps PET/CT. Distal heart and esophagus: Cardiomegaly. Left and right coronary calcification. Small hiatal hernia. Liver: Heterogeneous appearance to the liver faint hyperenhancing foci of the left and right lobe. Prominent splenic and portal vein. Gallbladder: Status post cholecystectomy. Negative for ductal dilation. Portal vein is patent. Spleen: Markedly enlarged with multiple splenic low-density foci. Nodular densities in the inferior perisplenic region potentially representing Pancreas: Slightly prominent without any focal finding. Adrenals: Normal Kidneys: Severe atrophy of the [place] kidneys. Retroperitoneum peripheral atherosclerotic calcification of abdominal aorta with moderate to severe stenosis near the aortic bifurcation and proximal left greater than right common iliac artery. Severe stenosis near iliac bifurcation. Bowel: Scattered gas and stool in colon. Nondistended transverse colon with small amount of fat within the mucosal wall suggesting chronic inflammation. Caliber of the small bowel loops is normal. Pelvis: Uterus is unremarkable. Partially distended urinary bladder. Pelvic sidewall, inguinal region are normal. Bones: Mild convex left curvature of the lumbar spine. Probable bone islands in anterior left iliac bone near the superior aspect of the SI joint. Impression: 1. Right lower lobe large necrotic mass partially included in the field of view overlying the right hemidiaphragm measuring at least 7.5 cm. Recommend correlation with CT chest and or perhaps PET/CT. Tomorrow metastases is suspected. 2. Heterogeneous foci in the liver and low density in spleen also suspicious for metastases. 3. Status post cholecystectomy. 4. Severe atrophy of bilateral [place] kidneys. 5. Atherosclerotic disease of abdominal aorta, aortic bifurcation and common iliac arteries. 6. Lumbar spine degenerative changes. Electronically signed by: Francisco Gallagher MD 12/14/22 22:35 PM
[2022-12-14] MEDS ORDERED: SODIUM BICARB 8.4% INJ 50 MEQ/50 ML SYR IV STA (23:27)
[2022-12-14] MEDS ORDERED: NovoLIN-R INSULIN PER UNIT CHARGE IV STA (23:27)
[2022-12-14] MEDS ORDERED: DEXTROSE 50% 50 ML SYRINGE IV ONE (23:30)
--- NOTE | 2022-12-15 00:55 | History & Physical Report ---
Date of Service December 15, 2022 Assessment & Plan (1) New onset seizure: Plan: Likely from increased intracranial pressure secondary to tumorigenic edema Likely brain mets secondary to probable recurrent lung malignancy with probable hepatic mets as well, past history radiation Chronic diastolic heart failure, some congestion on CXR Chronic respiratory failure secondary to COPD/ILD, lung status at baseline AGMA, hyperkalemia secondary to ESRD on HD hx CAD/PVD as per records Left breast cancer sp surgery/chemoradiation hypothyroidism, TSH slightly elevated chronic anemia, hemoglobin at baseline past tobacco abuse Medical telemetry Decadron for tumorigenic edema Seizure precautions, Ativan as needed for active seizures Keppra dosed for renal function EEG, Neurology consult Re: New onset seizures Radiation oncology and Oncology consultations Re: Metastatic lung cancer Family open to Palliative care consultation if recommended by above specialties as per discussion. Bicarb and IV insulin for hyperkalemia Nephrology consultation Re: Dialysis management DVT prophylaxis. SCDs RE brain tumor DNR as per patient's daughter. Patient family requesting updates from providers. Ms. Yareli Grant (daughter), contact #[phone]. Mr. Danilo Grant (), contact # [phone]. Text document was generated using [employer] voice recognition software. It may contain grammatical or spelling errors. Kindly contact undersigned for clarification of any documentation item in question. History of Present Illness Chief Complaint: New onset seizures Primary Care Provider: César Barnes MD History obtained from patient's family and records. Unable to obtain history from patient secondary to obtunded state. Medical history significant for chronic respiratory failure secondary to COPD/ILD on home O2, hypertension, chronic diastolic HF 2 to non-ischemic cardiomyopathy (TTE EF 55-60%, 2019), CAD/PVD as per records, ESRD on hemodialysis, left breast cancer sp surgery/chemoradiation , non-small cell lung cancer status post radiation, GERD, gastroparesis as per records, hypothyroidism, cirrhosis, chronic anemia (baseline hemoglobin 8-9), chronic thrombocytopenia, hx pulmonary vasculitis as per records, past tobacco abuse. Last confinement May 2021 for respiratory failure secondary to missed dialysis. Patient noted to have gradual slowing in cognition the last few weeks as per family. No complaints of headache. Patient never complaints as per family. Patient seen at the ER 2 weeks ago for abdominal pain complaints. CT chest showed 1. Interval expansion of the right middle lobe with a lobular low-density focus which measures 6.5 x 4.9 cm. This is surrounded by the hyperdense material within the right middle lobe seen on the prior study. A cystic/heterogeneous mass of the right middle lobe is the diagnosis of exclusion. This could also represent multiple dilated impacted right middle lobe bronchi. Therefore, follow-up bronchoscopy recommended. 2. The irregular mixed density focus within the base of the right lower lobe has also slightly increased in size and now measures 3.9 x 2.1 cm. 3. Diffuse interlobular septal thickening and near diffuse groundglass airspace opacities are again noted. 4. No change in the hyperdense mediastinal and bilateral hilar lymphadenopathy. 5. Stable cardiomegaly. Patient seen at [facility] pul[place]ology office the following day for abnormal CT chest. Provider contemplated referral to patient's as per note. [facility] oncologist and radiation oncologist Patient prescribed Levaquin for Serratia marcescens on sputum CS. Provider also got in touch with PCPs office due to concerns about patient mentation. PCP appointment scheduled for this week as per daughter. Increasing weakness at home over the last few days. Last night, patient turned her head to the left. Generalized tonic-clonic seizures witnessed at home. Patient noted to be disoriented. More seizures noted at the ER as per family. Lorazepam and Keppra administered at the ER. Decadron administered at the ER with note of frontal lobe mass on CT with vasogenic edema Patient family adamantly refused [facility] transfer recommendation from ER provider. MEDICAL HISTORY: As above. Hemodialysis MWF SURGERIES: Mastectomy, thyroidectomy, vascular procedures, back surgery. FAMILY HISTORY: Breast cancer, stroke. PERSONAL AND SOCIAL HISTORY: Past tobacco abuse. No chronic intake of alcohol. Disabled. Allergies Allergy/AdvReac Type Severity Reaction Status Date / Time aspirin Allergy Severe EDEMA Verified 12/14/22 22:48 FACE/LIPS/TONGUE dipyridamole Allergy Severe "Bad Verified 12/14/22 22:48 reaction" per records naproxen Allergy Severe EDEMA Verified 12/14/22 22:48 FACE/LIPS/TONGUE atropine Allergy Intermediate Dyspnea/WHE Verified 12/14/22 22:48 EZING vancomycin Allergy Intermediate Rash/tommy Verified 12/14/22 22:48 syndrome maprotiline Allergy Unknown Unknown Verified 12/14/22 22:48 latex Allergy Unknown Verified 12/14/22 22:49 valacyclovir [From Valtrex] AdvReac Severe "FREAKED Verified 12/14/22 22:48 OUT HAD TO BE HOSPITALIZED". linezolid AdvReac Intermediate Thrombocyto Verified 12/14/22 22:48 penia salicylates AdvReac Intermediate Gastrointestinal Verified 12/14/22 22:48 Upset Home Medications Medication Instructions Recorded Confirmed Type albuterol sulfate 2.5 mg/3 mL 2.5 mg inhalation DIRECTED PRN 11/02/18 12/14/22 History (0.083 %) solution for nebulization Shortness Of Breath Or Wheezing hydralazine 25 mg tablet 25 mg PO TID 11/02/18 12/14/22 History levothyroxine 75 mcg tablet 75 mcg PO QAM 11/02/18 12/14/22 History simvastatin 20 mg tablet 20 mg PO HS 11/02/18 12/14/22 History amlodipine 10 mg tablet 10 mg PO QAM 07/14/19 12/14/22 History pantoprazole 40 mg tablet,delayed 40 mg PO DAILYBB 07/14/19 12/14/22 History release metoprolol succinate 25 mg 25 mg PO QAM 11/19/19 12/14/22 History tablet,extended release 24 hr (Toprol XL) calcium acetate(phosphat bind) 667 667 mg PO TIDM 05/20/21 12/14/22 History mg capsule famotidine 20 mg tablet 20 mg PO HS 10/18/21 12/14/22 History aprepitant 80 mg capsule (Emend) 80 mg PO QAM 12/03/22 12/14/22 History benzonatate 200 mg capsule 200 mg PO TID PRN Cough 12/03/22 12/14/22 History fluticasone furoate 200 1 inh inhalation QAM 12/03/22 12/14/22 History mcg-vilanterol 25 mcg/dose inhalation powder (Breo Ellipta) sucralfate 100 mg/mL oral 10 ml PO QID #420 mL 12/03/22 12/14/22 Rx suspension (Carafate) Past Med/Surg History Medical History Anemia of chronic renal failure AV fistula LUE Breast cancer DX 2000 s/p chemo/xrt CAD (coronary artery disease) Chronic diarrhea Chronic hypoxemic respiratory failure Cirrhosis per records COPD (chronic obstructive pulmonary disease) Esophageal polyp ESRD (end stage renal disease) dialysis Thursday//Thursday ([place]) THIS WEEK D/T UPCOMING PROCEDURE ON 08/21/22 DIALYSIS , THU AND THU GERD (gastroesophageal reflux disease) History of abdominal paracentesis Hyperlipidemia Hypertension Hypothyroidism Interstitial lung disease Multiple pulmonary nodules determined by computed tomography of lung Nausea Non-ischemic cardiomyopathy Non-small cell lung cancer (NSCLC) dx 04/2019; s/p XRT; RML, RLL. Follows with [facility], R-Onc On home oxygen therapy 2L O2 HS Poor historian Splenomegaly, not elsewhere classified w/ multiple hypodense masses stable on fall 2019 imaging and present since at least 2005 Thrombocytopenia chronic, 2/2 cirrhosis. Surgical History H/O partial thyroidectomy GOITER History of bronchoscopy History of cardiac cath 2013- NO STENTS History of colonoscopy History of esophagogastroduodenoscopy (EGD) History of tooth extraction Hx of lumpectomy LEFT S/P arteriovenous (AV) fistula creation left arm > upper S/P laparoscopic cholecystectomy 06/2020 [facility] Family History Other Family history non-contributory No family history of adverse response to anesthesia Social History Smoking Status: Unknown if ever smoked Tobacco Type: Cigarettes Preferred Language: Mongolian Communication Ability: Effective Buffer Automatic Required: No Beliefs That Will Affect Care: None marital status: Current Living Situation: Spouse and Family current occupational status: disabled How many Children do You have: 2 Other Information That Helps Us Care for You: No Feels Safe at Home: Yes Assistive Devices: Oxygen - Continuous Review of Systems Review of Systems: Could not be reliably obtained secondary to obtunded state Physical Exam Physical Exam: GENERAL: Obtunded, chronically ill, underweight, no respiratory distress SKIN: Pallor, warm HEENT: Pale palpebral conjunctivae, ptosis, dry buccal mucosa NECK : Supple, no tenderness CHEST : Decreased breath sounds, no tenderness HEART : RRR, systolic murmur ABDOMEN: Some distention, nontender EXTREMITIES : No LE swelling/tenderness, no other conspicuous deformities noted NEUROLOGIC : Obtunded, no facial asymmetry, gait and stance not assessed Results & Data Results & Data Vital Signs (Past 12 Hours) Vital Signs Temp Pulse Pulse Resp BP BP Pulse Ox 12/14/22 23:30 67 19 100 12/14/22 23:30 93/41 L 12/14/22 23:20 67 20 100 12/14/22 23:10 69 18 96 12/14/22 23:00 68 19 96 12/14/22 23:00 109/49 L 12/14/22 22:50 68 20 96 12/14/22 22:40 69 19 94 12/14/22 22:30 69 19 94 12/14/22 22:30 92/45 L 12/14/22 22:20 71 20 96 12/14/22 22:10 70 18 95 12/14/22 22:00 72 25 H 100 12/14/22 21:50 72 21 99 12/14/22 21:45 72 19 99 12/14/22 21:45 119/53 L 12/14/22 21:40 72 19 100 12/14/22 21:37 123/58 L 12/14/22 21:37 73 18 99 12/14/22 21:34 73 21 99 12/14/22 21:10 98 12/14/22 21:00 73 21 99 12/14/22 21:00 113/55 L 12/14/22 20:50 73 21 100 12/14/22 20:45 72 22 99 12/14/22 20:45 114/54 L 12/14/22 20:40 73 21 99 12/14/22 20:30 73 22 99 12/14/22 20:30 107/51 L 12/14/22 20:20 76 26 H 99 12/14/22 20:15 122/62 12/14/22 20:15 151 H 30 H 100 12/14/22 20:10 164 H 33 H 98 12/14/22 20:00 169 H 55 H 12/14/22 20:00 140/101 H 12/14/22 19:52 152 H 20 95 12/14/22 19:52 135/52 L 12/14/22 20:28 74 22 122/62 99 12/14/22 20:05 170 H 31 H 99 12/14/22 19:34 37 C 83 28 H 131/50 L 100 O2 Del Method O2 Flow Rate 12/14/22 23:30 12/14/22 23:30 12/14/22 23:20 12/14/22 23:10 12/14/22 23:00 12/14/22 23:00 12/14/22 22:50 12/14/22 22:40 12/14/22 22:30 12/14/22 22:30 12/14/22 22:20 12/14/22 22:10 12/14/22 22:00 12/14/22 21:50 12/14/22 21:45 12/14/22 21:45 12/14/22 21:40 12/14/22 21:37 12/14/22 21:37 12/14/22 21:34 12/14/22 21:10 12/14/22 21:00 12/14/22 21:00 12/14/22 20:50 12/14/22 20:45 12/14/22 20:45 12/14/22 20:40 12/14/22 20:30 12/14/22 20:30 12/14/22 20:20 12/14/22 20:15 12/14/22 20:15 12/14/22 20:10 12/14/22 20:00 12/14/22 20:00 12/14/22 19:52 12/14/22 19:52 12/14/22 20:28 Room Air 12/14/22 20:05 12/14/22 19:34 Nasal Cannula 2 Laboratory Results Laboratory Results WBC 7.96 K/ul (4.8-10.8) 12/14/22 20:15 RBC 4.65 M/uL (4.20-5.40) 12/14/22 20:15 Hgb 11.8 g/dl (12.0-16.0) L 12/14/22 20:15 Hct 40.1 % (37.0-47.0) 12/14/22 20:15 MCV 86.2 fL (80.0-100.0) 12/14/22 20:15 MCH 25.4 pg (25.0-34.0) 12/14/22 20:15 MCHC 29.4 g/dL (32.0-36.0) L 12/14/22 20:15 RDW Std Deviation 62.7 fL (36.4-46.3) H 12/14/22 20:15 RDW Coeff of Dave 20.0 % (11.5-14.5) H 12/14/22 20:15 Plt Count 160 K/uL (130-400) 12/14/22 20:15 MPV 11.0 fL (9.4-12.4) 12/14/22 20:15 Immature Gran % (Auto) 2.0 % 12/14/22 20:15 Neut % (Auto) 77.9 % 12/14/22 20:15 Lymph % (Auto) 11.6 % 12/14/22 20:15 [place] % (Auto) 6.8 % 12/14/22 20:15 Eos % (Auto) 1.3 % 12/14/22 20:15 Baso % (Auto) 0.4 % 12/14/22 20:15 Neut # (Auto) 6.21 K/uL (1.40-6.50) 12/14/22 20:15 Lymph # (Auto) 0.92 K/uL (1.2-3.4) L 12/14/22 20:15 [place] # (Auto) 0.54 K/uL (0.11-0.59) 12/14/22 20:15 Eos # (Auto) 0.10 K/uL (0-0.50) 12/14/22 20:15 Baso # (Auto) 0.03 K/uL (0-0.2) 12/14/22 20:15 Immature Gran # (Auto) 0.16 K/uL (0.01-0.20) 12/14/22 20:15 Sodium 136 mmol/L (136-145) 12/14/22 20:15 Potassium 5.8 mmol/L (3.5-5.1) H 12/14/22 20:15 Chloride 99 mmol/L (98-107) 12/14/22 20:15 Carbon Dioxide 24 mmol/L (21-32) 12/14/22 20:15 Anion Gap 13 (3-11) H 12/14/22 20:15 BUN 55 mg/dl (6-23) H 12/14/22 20:15 Creatinine 6.86 mg/dl (0.6-1.2) H* 12/14/22 20:15 Est Cr Clr Drug Dosing 5.0 ml/min 12/14/22 20:15 Est GFR ( Amer) 6.8 ml/min 12/14/22 20:15 Est GFR (Non-Af Amer) 5.8 ml/min 12/14/22 20:15 BUN/Creatinine Ratio 8.0 (10-20) L 12/14/22 20:15 Glucose 92 mg/dl (70-99(Fasting)) 12/14/22 20:15 POC Glucose 113 mg/dl (70-99) H 12/15/22 00:15 Calcium 8.7 mg/dl (8.6-10.3) 12/14/22 20:15 Total Bilirubin 1.3 mg/dl (0.2-1.0) H 12/14/22 20:15 AST 15 U/L (13-39) 12/14/22 20:15 ALT 6 U/L (7-52) L 12/14/22 20:15 Alkaline Phosphatase 152 U/L (34-104) H 12/14/22 20:15 Total Protein 6.7 gm/dl (6.0-8.3) 12/14/22 20:15 Albumin 3.6 gm/dl (3.4-5.0) 12/14/22 20:15 Globulin 3.1 gm/dl (2.5-4.0) 12/14/22 20:15 Albumin/Globulin Ratio 1.2 (0.9-2) 12/14/22 20:15 SARS-CoV-2, RNA, NAAT NEGATIVE (NEGATIVE) 12/15/[address] 12/14/22 20:05 Exam(s): CT HEAD Without Contrast History: Reason for exam: Seizure. Exam: CT HEAD Without Contrast Technique more: CTDI is 37.75 mGy and DLP is 614.27 mGy-cm. Technique more: Automated exposure control was utilized for the study. A dose lowering technique was utilized adhering to the principles of ALARA. Comparison: CT head 04/30/2015 Findings: Right superior frontal probable 1 cm mass with surrounding extensive vasogenic edema. Metastases is suspected. Recommend follow-up MRI with contrast. Mild effacement of the sulci. Negative for midline shift. Remaining aguilar-white matter differentiation is normal. Paranasal sinuses, mastoid air cells are clear. Trace fluid in the inferior left mastoid air cells. Mild cerumen in left greater than right external auditory canal. Impression: 1. Right superior frontal 1 cm slightly hyperdense mass with extensive surrounding vasogenic edema. Suspect metastases or tumor. Recommend follow-up MRI with contrast. Electronically signed by: Francisco Gallagher MD 12/14/22 22:17 PM Abdomen/Pelvis CT 12/14/22 20:08 Exam(s): CT ABDOMEN + PELVIS With Contrast IV Amt: 86ml History: Reason for exam: Renal failure, abd pain, breast CA. Exam: CT ABDOMEN + PELVIS With Contrast Technique more: CTDI is 37.75 mGy and DLP is 614.27 mGy-cm. Patient received 86ml of IV contrast Technique more: Automated exposure control was utilized for the study. A dose lowering technique was utilized adhering to the principles of ALARA. Comparison: CT abdomen pelvis 05/03/2014 Findings: Lung bases: Partially seen large necrotic mass measuring approximately 7. 5 cm overlying the right hemidiaphragm. Additional masses partially included in the field of view. Basilar increased septal thickening is seen. Recommend correlation with CT chest and/or perhaps PET/CT. Distal heart and esophagus: Cardiomegaly. Left and right coronary calcification. Small hiatal hernia. Liver: Heterogeneous appearance to the liver faint hyperenhancing foci of the left and right lobe. Prominent splenic and portal vein. Gallbladder: Status post cholecystectomy. Negative for ductal dilation. Portal vein is patent. Spleen: Markedly enlarged with multiple splenic low-density foci. Nodular densities in the inferior perisplenic region potentially representing Pancreas: Slightly prominent without any focal finding. Adrenals: Normal Kidneys: Severe atrophy of the [place] kidneys. Retroperitoneum peripheral atherosclerotic calcification of abdominal aorta with moderate to severe stenosis near the aortic bifurcation and proximal left greater than right common iliac artery. Severe stenosis near iliac bifurcation. Bowel: Scattered gas and stool in colon. Nondistended transverse colon with small amount of fat within the mucosal wall suggesting chronic inflammation. Caliber of the small bowel loops is normal. Pelvis: Uterus is unremarkable. Partially distended urinary bladder. Pelvic sidewall, inguinal region are normal. Bones: Mild convex left curvature of the lumbar spine. Probable bone islands in anterior left iliac bone near the superior aspect of the SI joint. Impression: 1. Right lower lobe large necrotic mass partially included in the field of view overlying the right hemidiaphragm measuring at least 7.5 cm. Recommend correlation with CT chest and or perhaps PET/CT. Tomorrow metastases is suspected. 2. Heterogeneous foci in the liver and low density in spleen also suspicious for metastases. 3. Status post cholecystectomy. 4. Severe atrophy of bilateral [place] kidneys. 5. Atherosclerotic disease of abdominal aorta, aortic bifurcation and common iliac arteries. 6. Lumbar spine degenerative changes. Electronically signed by: Francisco Gallagher MD 12/14/22 22:35 PM Diagnostic Findings Chest x-ray as per my interpretation congestion, right lung opacity
[2022-12-15] MEDS ORDERED: ALBUMIN 25% 100 mL 25 GM/100 ML VIAL IV STA (01:01)
[2022-12-15 01:32] LABS: Magnesium 1.9 mg/dl (1.7-2.4)
--- NOTE | 2022-12-15 02:09 | Emergency Department Note ---
Impression & Plan Metastasis to brain, Seizure, Cerebral edema ED Provider Note CHIEF COMPLAINT: Seizure HISTORY OF PRESENT ILLNESS: This 62-year-old female patient with a history of lung cancer, COPD end-stage renal disease on dialysis, diffuse pulmonary alveolar hemorrhage, C. difficile colitis, remote history of breast cancer presents to the emergency department with seizure activity per family. The pat gosia was able to get up and get some food at dinnertime tonight but family noticed shortly thereafter that her head was turned to the left side and she was shaking, particularly in the right arm and right leg. She was not "herself" but was able to speak. Family member states that she has been increasingly weak and fatigued over the last several weeks. She has been complaining of abdominal pain and seems to be bloated. Patient is not currently being treated by oncology but has seen oncology at [facility] in the past. Patient has not had any recent fevers, head injuries or significant complaints of headaches. Patient has never had a seizure in the past REVIEW OF SYSTEMS: A review of systems was performed with positives and pertinent negatives listed in the history of present illness. 10 systems were reviewed and are otherwise negative. ALLERGIES: see below MEDICATIONS: see below PMH: see below SOCIAL HISTORY: see below DDx: Stroke, hemorrhage, intracranial mass, new onset seizure activity, metastasis among others PHYSICAL EXAM: Vital signs reviewed. General: Chronically ill-appearing, thin and frail 62-year-old female, in no significant distress. HEENT: No scleral icterus, PERRLA, neck supple. Moist mucous membranes Cardiovascular: Tachycardic, regular, no extra sounds. Pulmonary: Coarse breath sounds bilaterally, normal work of breathing Abdomen: Soft, bloated, no tympany to percussion, mild diffuse abdominal tenderness, nondistended, positive bowel sounds. Musculoskeletal: Atraumatic, no peripheral edema. Neurologic: Patient awake and able to answer some simple questions. Head turned to the left, left-sided gaze preference. Right upper and lower extremity are rhythmically convulsing. Skin: Warm, dry, no rash EMERGENCY DEPARTMENT COURSE/MDM: This patient was evaluated and appeared to be in no significant distress. External medical records were reviewed. IV access was obtained and laboratory work was drawn. The patient was medicated with 2 mg of IV Ativan, hydrated with normal saline solution. She was also loaded with 1 g of IV Keppra as she is small at 37.[address] imaging of the head was performed and reveals a 1 cm frontal lobe mass with significant vasogenic edema. Patient was medicated with 10 mg of IV dexamethasone. I did have a cheryl discussion with the family regarding the head CT findings as well as CT scan of the abdomen and pelvis which reveals metastatic disease throughout the liver and spleen. CT also finds a 7 cm necrotic mass in the right lung. Family member states this is known, between oncology services, they have been unable to determine if it was "cancer or not." Patient is not currently on chemotherapy. Given the advanced disease, new onset seizure and cerebral edema for metastatic focus, patient will be evaluated by the hospitalist service for admission and further management. Patient's family has expressed understanding and were advised of the metastatic findings. Case was discussed with Dr. Yoder of the hospitalist service to evaluate the patient for admission and further management. MONITORING: An order for cardiac monitoring was placed and the patient is noted to be in a normal sinus rhythm at 76 beats per minute. RADIOLOGY: Head CT to my interpretation reveals a large area of hypodensity to the right frontoparietal region. Per radiology there is a 1 cm frontal lobe mass with surrounding edema. Please see the read below for further details. CT imaging of the abdomen pelvis to my review reveals multiple hypodense focus in the liver and spleen. Otherwise defer to radiology's overread. EKG: To my interpretation reveals a normal sinus rhythm at 78 bpm, normal ST segments. No PVC, no PAC. DISPOSITION: Home I have personally spent 45 minutes of critical care time in the direct management of this patient. This was a life/limb threatening event. This 45 m inutes is in excess of all separately billable procedures. Past Med/Surg History Medical History Anemia of chronic renal failure AV fistula LUE Breast cancer DX 2000 s/p chemo/xrt CAD (coronary artery disease) Chronic diarrhea Chronic hypoxemic respiratory failure Cirrhosis per records COPD (chronic obstructive pulmonary disease) Esophageal polyp ESRD (end stage renal disease) dialysis Thursday//Thursday ([place]) THIS WEEK D/T UPCOMING PROCEDURE ON 08/21/22 DIALYSIS , THU AND THU GERD (gastroesophageal reflux disease) History of abdominal paracentesis Hyperlipidemia Hypertension Hypothyroidism Interstitial lung disease Multiple pulmonary nodules determined by computed tomography of lung Nausea Non-ischemic cardiomyopathy Non-small cell lung cancer (NSCLC) dx 04/2019; s/p XRT; RML, RLL. Follows with [facility] Hem[facility]/Onc, R-Onc On home oxygen therapy 2L O2 HS Poor historian Splenomegaly, not elsewhere classified w/ multiple hypodense masses stable on fall 2019 imaging and present since at least 2005 Thrombocytopenia chronic, 2/2 cirrhosis. Surgical History H/O partial thyroidectomy GOITER History of bronchoscopy History of cardiac cath 2013- NO STENTS History of colonoscopy History of esophagogastroduodenoscopy (EGD) History of tooth extraction Hx of lumpectomy LEFT S/P arteriovenous (AV) fistula creation left arm > upper S/P laparoscopic cholecystectomy 06/2020 [facility] Family History Other Family history non-contributory No family history of adverse response to anesthesia Social History Smoking Status: Former smoker Tobacco Type: Cigarettes Second Hand Exposure: No; Hx Alcohol Use: No Hx Substance Use: No Preferred Language: Syriac Communication Ability: Effective 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: No Beliefs That Will Affect Care: None marital status: Current Living Situation: Spouse current occupational status: disabled How many Children do You have: 2 Feels Safe at Home: Yes Assistive Devices: Oxygen - at Night Allergies Allergies Allergy/AdvReac Type Severity Reaction Status Date / Time aspirin Allergy Severe EDEMA Verified 12/14/22 22:48 FACE/LIPS/TONGUE dipyridamole Allergy Severe "Bad Verified 12/14/22 22:48 reaction" per records naproxen Allergy Severe EDEMA Verified 12/14/22 22:48 FACE/LIPS/TONGUE atropine Allergy Intermediate Dyspnea/WHE Verified 12/14/22 22:48 EZING vancomycin Allergy Intermediate Rash/tommy Verified 12/14/22 22:48 syndrome maprotiline Allergy Unknown Unknown Verified 12/14/22 22:48 latex Allergy Unknown Verified 12/14/22 22:49 valacyclovir [From Valtrex] AdvReac Severe "FREAKED Verified 12/14/22 22:48 OUT HAD TO BE HOSPITALIZED". linezolid AdvReac Intermediate Thrombocyto Verified 12/14/22 22:48 penia salicylates AdvReac Intermediate Gastrointestinal Verified 12/14/22 22:48 Upset Home Meds Home Medications Medication Instructions Recorded Confirmed albuterol sulfate 2.5 mg/3 mL 2.5 mg inhalation DIRECTED PRN 11/02/18 12/14/22 (0.083 %) solution for nebulization Shortness Of Breath Or Wheezing hydralazine 25 mg tablet 25 mg PO TID 11/02/18 12/14/22 levothyroxine 75 mcg tablet 75 mcg PO QAM 11/02/18 12/14/22 simvastatin 20 mg tablet 20 mg PO HS 11/02/18 12/14/22 amlodipine 10 mg tablet 10 mg PO QAM 07/14/19 12/14/22 pantoprazole 40 mg tablet,delayed 40 mg PO DAILYBB 07/14/19 12/14/22 release metoprolol succinate 25 mg 25 mg PO QAM 11/19/19 12/14/22 tablet,extended release 24 hr (Toprol XL) calcium acetate(phosphat bind) 667 667 mg PO TIDM 05/20/21 12/14/22 mg capsule famotidine 20 mg tablet 20 mg PO HS 10/18/21 12/14/22 aprepitant 80 mg capsule (Emend) 80 mg PO QAM 12/03/22 12/14/22 benzonatate 200 mg capsule 200 mg PO TID PRN Cough 12/03/22 12/14/22 fluticasone furoate 200 1 inh inhalation QAM 12/03/22 12/14/22 mcg-vilanterol 25 mcg/dose inhalation powder (Breo Ellipta) Previous Rx's Medication Instructions Recorded sucralfate 100 mg/mL oral 10 ml PO QID #420 mL 12/03/22 suspension (Carafate) Results & Data (ED) Vital Signs Vital Signs - 24 hr 12/14/22 19:34 12/14/22 20:05 12/14/22 20:28 Temperature 37 C Temperature Source Temporal Artery Scan Pulse Rate 83 170 H Pulse Rate [Right Finger] 74 Pulse Rate from SpO2 Sensor Pulse Rhythm Regular Irregular Pulse Rhythm [Right Finger] Regular Pulse Strength Normal Pulse Strength [Right Finger] Normal Respiratory Rate 28 H 31 H 22 Respiratory Effort / Characteristics Non-Labored Spontaneous Non-Labored Spontaneous Respiratory Depth Normal Normal Respiratory Pattern Regular Blood Pressure 131/50 L Blood Pressure [Right Arm] 122/62 Blood Pressure Mean 77 Blood Pressure Mean [Right Arm] 82 Blood Pressure Position Sitting Blood Pressure Position [Right Arm] Lying Pulse Oximetry 100 99 99 Oxygen Delivery Method Nasal Cannula Room Air Oxygen Flow Rate 2 Sepsis Recent Fever Within 48 Hours No Sepsis New/Unexplained Change in Mental Status N/A Sepsis Action Taken by Nursing No Action Required 12/14/22 19:52 12/14/22 19:52 12/14/22 20:00 Temperature Temperature Source Pulse Rate 152 H Pulse Rate [Right Finger] Pulse Rate from SpO2 Sensor 86 Pulse Rhythm Pulse Rhythm [Right Finger] Pulse Strength Pulse Strength [Right Finger] Respiratory Rate 20 Respiratory Effort / Characteristics Respiratory Depth Respiratory Pattern Blood Pressure 135/52 L 140/101 H Blood Pressure [Right Arm] Blood Pressure Mean 79 114 Blood Pressure Mean [Right Arm] Blood Pressure Position Blood Pressure Position [Right Arm] Pulse Oximetry 95 Oxygen Delivery Method Oxygen Flow Rate Sepsis Recent Fever Within 48 Hours Sepsis New/Unexplained Change in Mental Status Sepsis Action Taken by Nursing 12/14/22 20:00 12/14/22 20:10 12/14/22 20:15 Temperature Temperature Source Pulse Rate 169 H 164 H 151 H Pulse Rate [Right Finger] Pulse Rate from SpO2 Sensor 82 77 Pulse Rhythm Pulse Rhythm [Right Finger] Pulse Strength Pulse Strength [Right Finger] Respiratory Rate 55 H 33 H 30 H Respiratory Effort / Characteristics Respiratory Depth Respiratory Pattern Blood Pressure Blood Pressure [Right Arm] Blood Pressure Mean Blood Pressure Mean [Right Arm] Blood Pressure Position Blood Pressure Position [Right Arm] Pulse Oximetry 98 100 Oxygen Delivery Method Oxygen Flow Rate Sepsis Recent Fever Within 48 Hours Sepsis New/Unexplained Change in Mental Status Sepsis Action Taken by Nursing 12/14/22 20:15 12/14/22 20:20 12/14/22 20:30 Temperature Temperature Source Pulse Rate 76 Pulse Rate [Right Finger] Pulse Rate from SpO2 Sensor 76 Pulse Rhythm Pulse Rhythm [Right Finger] Pulse Strength Pulse Strength [Right Finger] Respiratory Rate 26 H Respiratory Effort / Characteristics Respiratory Depth Respiratory Pattern Blood Pressure 122/62 107/51 L Blood Pressure [Right Arm] Blood Pressure Mean 82 69 Blood Pressure Mean [Right Arm] Blood Pressure Position Blood Pressure Position [Right Arm] Pulse Oximetry 99 Oxygen Delivery Method Oxygen Flow Rate Sepsis Recent Fever Within 48 Hours Sepsis New/Unexplained Change in Mental Status Sepsis Action Taken by Nursing 12/14/22 20:30 04/09/23 20:40 12/14/22 20:45 Temperature Temperature Source Pulse Rate 73 73 Pulse Rate [Right Finger] Pulse Rate from SpO2 Sensor 73 73 Pulse Rhythm Pulse Rhythm [Right Finger] Pulse Strength Pulse Strength [Right Finger] Respiratory Rate 22 21 Respiratory Effort / Characteristics Respiratory Depth Respiratory Pattern Blood Pressure 114/54 L Blood Pressure [Right Arm] Blood Pressure Mean 74 Blood Pressure Mean [Right Arm] Blood Pressure Position Blood Pressure Position [Right Arm] Pulse Oximetry 99 99 Oxygen Delivery Method Oxygen Flow Rate Sepsis Recent Fever Within 48 Hours Sepsis New/Unexplained Change in Mental Status Sepsis Action Taken by Nursing 12/14/22 20:45 12/14/22 20:50 12/14/22 21:00 Temperature Temperature Source Pulse Rate 72 73 Pulse Rate [Right Finger] Pulse Rate from SpO2 Sensor 72 73 Pulse Rhythm Pulse Rhythm [Right Finger] Pulse Strength Pulse Strength [Right Finger] Respiratory Rate 22 21 Respiratory Effort / Characteristics Respiratory Depth Respiratory Pattern Blood Pressure 113/55 L Blood Pressure [Right Arm] Blood Pressure Mean 74 Blood Pressure Mean [Right Arm] Blood Pressure Position Blood Pressure Position [Right Arm] Pulse Oximetry 99 100 Oxygen Delivery Method Oxygen Flow Rate Sepsis Recent Fever Within 48 Hours Sepsis New/Unexplained Change in Mental Status Sepsis Action Taken by Nursing 12/14/22 21:00 12/14/22 21:10 12/14/22 21:34 Temperature Temperature Source Pulse Rate 73 73 Pulse Rate [Right Finger] Pulse Rate from SpO2 Sensor 72 72 73 Pulse Rhythm Pulse Rhythm [Right Finger] Pulse Strength Pulse Strength [Right Finger] Respiratory Rate 21 21 Respiratory Effort / Characteristics Respiratory Depth Respiratory Pattern Blood Pressure Blood Pressure [Right Arm] Blood Pressure Mean Blood Pressure Mean [Right Arm] Blood Pressure Position Blood Pressure Position [Right Arm] Pulse Oximetry 99 98 99 Oxygen Delivery Method Oxygen Flow Rate Sepsis Recent Fever Within 48 Hours Sepsis New/Unexplained Change in Mental Status Sepsis Action Taken by Nursing 12/14/22 21:37 12/14/22 21:37 12/14/22 21:40 Temperature Temperature Source Pulse Rate 73 72 Pulse Rate [Right Finger] Pulse Rate from SpO2 Sensor 73 71 Pulse Rhythm Pulse Rhythm [Right Finger] Pulse Strength Pulse Strength [Right Finger] Respiratory Rate 18 19 Respiratory Effort / Characteristics Respiratory Depth Respiratory Pattern Blood Pressure 123/58 L Blood Pressure [Right Arm] Blood Pressure Mean 79 Blood Pressure Mean [Right Arm] Blood Pressure Position Blood Pressure Position [Right Arm] Pulse Oximetry 99 100 Oxygen Delivery Method Oxygen Flow Rate Sepsis Recent Fever Within 48 Hours Sepsis New/Unexplained Change in Mental Status Sepsis Action Taken by Nursing 12/14/22 21:45 12/14/22 21:45 12/14/22 21:50 Temperature Temperature Source Pulse Rate 72 72 Pulse Rate [Right Finger] Pulse Rate from SpO2 Sensor 72 72 Pulse Rhythm Pulse Rhythm [Right Finger] Pulse Strength Pulse Strength [Right Finger] Respiratory Rate 19 21 Respiratory Effort / Characteristics Respiratory Depth Respiratory Pattern Blood Pressure 119/53 L Blood Pressure [Right Arm] Blood Pressure Mean 75 Blood Pressure Mean [Right Arm] Blood Pressure Position Blood Pressure Position [Right Arm] Pulse Oximetry 99 99 Oxygen Delivery Method Oxygen Flow Rate Sepsis Recent Fever Within 48 Hours Sepsis New/Unexplained Change in Mental Status Sepsis Action Taken by Nursing 12/14/22 22:00 12/14/22 22:10 12/14/22 22:20 Temperature Temperature Source Pulse Rate 72 70 71 Pulse Rate [Right Finger] Pulse Rate from SpO2 Sensor 72 70 70 Pulse Rhythm Pulse Rhythm [Right Finger] Pulse Strength Pulse Strength [Right Finger] Respiratory Rate 25 H 18 20 Respiratory Effort / Characteristics Respiratory Depth Respiratory Pattern Blood Pressure Blood Pressure [Right Arm] Blood Pressure Mean Blood Pressure Mean [Right Arm] Blood Pressure Position Blood Pressure Position [Right Arm] Pulse Oximetry 100 95 96 Oxygen Delivery Method Oxygen Flow Rate Sepsis Recent Fever Within 48 Hours Sepsis New/Unexplained Change in Mental Status Sepsis Action Taken by Nursing 12/14/22 22:30 12/14/22 22:30 12/14/22 22:40 Temperature Temperature Source Pulse Rate 69 69 Pulse Rate [Right Finger] Pulse Rate from SpO2 Sensor 69 69 Pulse Rhythm Pulse Rhythm [Right Finger] Pulse Strength Pulse Strength [Right Finger] Respiratory Rate 19 19 Respiratory Effort / Characteristics Respiratory Depth Respiratory Pattern Blood Pressure 92/45 L Blood Pressure [Right Arm] Blood Pressure Mean 60 Blood Pressure Mean [Right Arm] Blood Pressure Position Blood Pressure Position [Right Arm] Pulse Oximetry 94 94 Oxygen Delivery Method Oxygen Flow Rate Sepsis Recent Fever Within 48 Hours Sepsis New/Unexplained Change in Mental Status Sepsis Action Taken by Nursing 12/14/22 22:50 12/14/22 23:00 12/14/22 23:00 Temperature Temperature Source Pulse Rate 68 68 Pulse Rate [Right Finger] Pulse Rate from SpO2 Sensor 69 69 Pulse Rhythm Pulse Rhythm [Right Finger] Pulse Strength Pulse Strength [Right Finger] Respiratory Rate 20 19 Respiratory Effort / Characteristics Respiratory Depth Respiratory Pattern Blood Pressure 109/49 L Blood Pressure [Right Arm] Blood Pressure Mean 69 Blood Pressure Mean [Right Arm] Blood Pressure Position Blood Pressure Position [Right Arm] Pulse Oximetry 96 96 Oxygen Delivery Method Oxygen Flow Rate Sepsis Recent Fever Within 48 Hours Sepsis New/Unexplained Change in Mental Status Sepsis Action Taken by Nursing 12/14/22 23:10 12/14/22 23:20 12/14/22 23:30 Temperature Temperature Source Pulse Rate 69 67 Pulse Rate [Right Finger] Pulse Rate from SpO2 Sensor 69 67 Pulse Rhythm Pulse Rhythm [Right Finger] Pulse Strength Pulse Strength [Right Finger] Respiratory Rate 18 20 Respiratory Effort / Characteristics Respiratory Depth Respiratory Pattern Blood Pressure 93/41 L Blood Pressure [Right Arm] Blood Pressure Mean 58 Blood Pressure Mean [Right Arm] Blood Pressure Position Blood Pressure Position [Right Arm] Pulse Oximetry 96 100 Oxygen Delivery Method Oxygen Flow Rate Sepsis Recent Fever Within 48 Hours Sepsis New/Unexplained Change in Mental Status Sepsis Action Taken by Nursing 12/14/22 23:30 12/14/22 23:40 12/14/22 23:50 Temperature Temperature Source Pulse Rate 67 67 69 Pulse Rate [Right Finger] Pulse Rate from SpO2 Sensor 68 67 69 Pulse Rhythm Pulse Rhythm [Right Finger] Pulse Strength Pulse Strength [Right Finger] Respiratory Rate 19 19 26 H Respiratory Effort / Characteristics Respiratory Depth Respiratory Pattern Blood Pressure Blood Pressure [Right Arm] Blood Pressure Mean Blood Pressure Mean [Right Arm] Blood Pressure Position Blood Pressure Position [Right Arm] Pulse Oximetry 100 100 99 Oxygen Delivery Method Oxygen Flow Rate Sepsis Recent Fever Within 48 Hours Sepsis New/Unexplained Change in Mental Status Sepsis Action Taken by Nursing 12/15/22 00:00 12/15/22 00:00 12/15/22 00:10 Temperature Temperature Source Pulse Rate 67 69 Pulse Rate [Right Finger] Pulse Rate from SpO2 Sensor 68 69 Pulse Rhythm Pulse Rhythm [Right Finger] Pulse Strength Pulse Strength [Right Finger] Respiratory Rate 21 20 Respiratory Effort / Characteristics Respiratory Depth Respiratory Pattern Blood Pressure 120/51 L Blood Pressure [Right Arm] Blood Pressure Mean 74 Blood Pressure Mean [Right Arm] Blood Pressure Position Blood Pressure Position [Right Arm] Pulse Oximetry 100 99 Oxygen Delivery Method Oxygen Flow Rate Sepsis Recent Fever Within 48 Hours Sepsis New/Unexplained Change in Mental Status Sepsis Action Taken by Nursing 12/15/22 00:20 12/15/22 00:30 12/15/22 00:30 Temperature Temperature Source Pulse Rate 72 74 Pulse Rate [Right Finger] Pulse Rate from SpO2 Sensor 72 74 Pulse Rhythm Pulse Rhythm [Right Finger] Pulse Strength Pulse Strength [Right Finger] Respiratory Rate 19 18 Respiratory Effort / Characteristics Respiratory Depth Respiratory Pattern Blood Pressure 119/50 L Blood Pressure [Right Arm] Blood Pressure Mean 73 Blood Pressure Mean [Right Arm] Blood Pressure Position Blood Pressure Position [Right Arm] Pulse Oximetry 98 100 Oxygen Delivery Method Oxygen Flow Rate Sepsis Recent Fever Within 48 Hours Sepsis New/Unexplained Change in Mental Status Sepsis Action Taken by Nursing 12/15/22 00:40 12/15/22 00:50 12/15/22 01:00 Temperature Temperature Source Pulse Rate 75 76 Pulse Rate [Right Finger] Pulse Rate from SpO2 Sensor 76 76 Pulse Rhythm Pulse Rhythm [Right Finger] Pulse Strength Pulse Strength [Right Finger] Respiratory Rate 17 18 Respiratory Effort / Characteristics Respiratory Depth Respiratory Pattern Blood Pressure 120/52 L Blood Pressure [Right Arm] Blood Pressure Mean 74 Blood Pressure Mean [Right Arm] Blood Pressure Position Blood Pressure Position [Right Arm] Pulse Oximetry 99 99 Oxygen Delivery Method Oxygen Flow Rate Sepsis Recent Fever Within 48 Hours Sepsis New/Unexplained Change in Mental Status Sepsis Action Taken by Nursing 12/15/22 01:00 12/15/22 01:10 12/15/22 01:20 Temperature Temperature Source Pulse Rate 76 76 77 Pulse Rate [Right Finger] Pulse Rate from SpO2 Sensor 76 77 76 Pulse Rhythm Pulse Rhythm [Right Finger] Pulse Strength Pulse Strength [Right Finger] Respiratory Rate 20 26 H 20 Respiratory Effort / Characteristics Respiratory Depth Respiratory Pattern Blood Pressure Blood Pressure [Right Arm] Blood Pressure Mean Blood Pressure Mean [Right Arm] Blood Pressure Position Blood Pressure Position [Right Arm] Pulse Oximetry 99 99 100 Oxygen Delivery Method Oxygen Flow Rate Sepsis Recent Fever Within 48 Hours Sepsis New/Unexplained Change in Mental Status Sepsis Action Taken by Nursing Laboratory Data 12/14/22 20:15 12/14/22 20:15 Lab Results 12/14/22 12/14/22 12/15/22 Range/Units 20:15 20:15 00:15 WBC 7.96 (4.8-10.8) K/ul RBC 4.65 (4.20-5.40) M/uL Hgb 11.8 L (12.0-16.0) g/dl Hct 40.1 (37.0-47.0) % MCV 86.2 (80.0-100.0) fL MCH 25.4 (25.0-34.0) pg MCHC 29.4 L (32.0-36.0) g/dL RDW Std Deviation 62.7 H (36.4-46.3) fL RDW Coeff of Dave 20.0 H (11.5-14.5) % Plt Count 160 (130-400) K/uL MPV 11.0 (9.4-12.4) fL Immature Gran % (Auto) 2.0 % Neut % (Auto) 77.9 % Lymph % (Auto) 11.6 % [place] % (Auto) 6.8 % Eos % (Auto) 1.3 % Baso % (Auto) 0.4 % Neut # (Auto) 6.21 (1.40-6.50) K/uL Lymph # (Auto) 0.92 L (1.2-3.4) K/uL [place] # (Auto) 0.54 (0.11-0.59) K/uL Eos # (Auto) 0.10 (0-0.50) K/uL Baso # (Auto) 0.03 (0-0.2) K/uL Immature Gran # (Auto) 0.16 (0.01-0.20) K/uL Sodium 136 (136-145) mmol/L Potassium 5.8 H (3.5-5.1) mmol/L Chloride 99 (98-107) mmol/L Carbon Dioxide 24 (21-32) mmol/L Anion Gap 13 H (3-11) BUN 55 H (6-23) mg/dl Creatinine 6.86 H* (0.6-1.2) mg/dl Est Cr Clr Drug Dosing 5.0 ml/min Est GFR ( Amer) 6.8 ml/min Est GFR (Non-Af Amer) 5.8 ml/min BUN/Creatinine Ratio 8.0 L (10-20) Glucose 92 (70-99(Fasting)) mg/dl POC Glucose 113 H (70-99) mg/dl Calcium 8.7 (8.6-10.3) mg/dl Magnesium 1.9 (1.7-2.4) mg/dl Total Bilirubin 1.3 H (0.2-1.0) mg/dl AST 15 (13-39) U/L ALT 6 L (7-52) U/L Alkaline Phosphatase 152 H (34-104) U/L Total Protein 6.7 (6.0-8.3) gm/dl Albumin 3.6 (3.4-5.0) gm/dl Globulin 3.1 (2.5-4.0) gm/dl Albumin/Globulin Ratio 1.2 (0.9-2) SARS-CoV-2, RNA, NAAT (NEGATIVE) 12/15/22 Range/Units Unknown WBC (4.8-10.8) K/ul RBC (4.20-5.40) M/uL Hgb (12.0-16.0) g/dl Hct (37.0-47.0) % MCV (80.0-100.0) fL MCH (25.0-34.0) pg MCHC (32.0-36.0) g/dL RDW Std Deviation (36.4-46.3) fL RDW Coeff of Dave (11.5-14.5) % Plt Count (130-400) K/uL MPV (9.4-12.4) fL Immature Gran % (Auto) % Neut % (Auto) % Lymph % (Auto) % [place] % (Auto) % Eos % (Auto) % Baso % (Auto) % Neut # (Auto) (1.40-6.50) K/uL Lymph # (Auto) (1.2-3.4) K/uL [place] # (Auto) (0.11-0.59) K/uL Eos # (Auto) (0-0.50) K/uL Baso # (Auto) (0-0.2) K/uL Immature Gran # (Auto) (0.01-0.20) K/uL Sodium (136-145) mmol/L Potassium (3.5-5.1) mmol/L Chloride (98-107) mmol/L Carbon Dioxide (21-32) mmol/L Anion Gap (3-11) BUN (6-23) mg/dl Creatinine (0.6-1.2) mg/dl Est Cr Clr Drug Dosing ml/min Est GFR ( Amer) ml/min Est GFR (Non-Af Amer) ml/min BUN/Creatinine Ratio (10-20) Glucose (70-99(Fasting)) mg/dl POC Glucose (70-99) mg/dl Calcium (8.6-10.3) mg/dl Magnesium (1.7-2.4) mg/dl Total Bilirubin (0.2-1.0) mg/dl AST (13-39) U/L ALT (7-52) U/L Alkaline Phosphatase (34-104) U/L Total Protein (6.0-8.3) gm/dl Albumin (3.4-5.0) gm/dl Globulin (2.5-4.0) gm/dl Albumin/Globulin Ratio (0.9-2) SARS-CoV-2, RNA, NAAT NEGATIVE (NEGATIVE) Administered Medications Discontinued Medications Dexamethasone (Dexamethasone Sod Inj 4 Mg/Ml Vial) 10 mg IV NOW STA Stop: 12/14/22 22:23 Last Admin: 12/14/22 23:10 Dose: 10 mg Documented By: REG Dextrose (Dextrose 50% 50 Ml Syringe) 50 ml IV NOW ONE Stop: 12/14/22 23:31 Last Admin: 12/15/22 00:07 Dose: 50 ml Documented By: REG Sodium Chloride (Nss 1000ml) 1,000 mls @ 999 mls/hr IV .Q1H1M ONE Stop: 12/14/22 21:05 Last Infusion: 12/14/22 23:54 Dose: 0 mls/hr Documented By: Admin: 12/14/22 20:20 Dose: 999 mls/hr Documented By: REG Levetiracetam 1,000 mg/ Sodium (Chloride) 110 mls @ 440 mls/hr IV NOW STA Stop: 12/14/22 20:21 Last Infusion: 12/14/22 22:01 Dose: 0 mls/hr Documented By: WORD PROCESSING OPERATOR Admin: 12/14/22 21:34 Dose: 440 mls/hr Documented By: STEPHANIE Insulin Human Regular (Novolin-R Insulin Per Unit Charge) 5 units IV NOW STA Stop: 12/14/22 23:28 Last Admin: 12/15/22 00:17 Dose: 5 units Documented By: REG Co-signed By: CATALINO Ioversol (Optiray 350 100ml) 86 ml IV ONCE ONE Stop: 12/14/22 21:22 Last Admin: 12/14/22 21:21 Dose: 86 ml Documented By: BILL Lorazepam (Lorazepam 2 Mg/1 Ml Vial) 2 mg IV NOW STA Stop: 12/14/22 20:05 Last Admin: 12/14/22 20:06 Dose: 2 mg Documented By: REG Lorazepam (Lorazepam 2 Mg/1 Ml Vial) Confirm Administered Dose 2 mg .ROUTE .STK- MED ONE Stop: 12/14/22 20:07 Last Admin: 12/14/22 20:20 Dose: 2 mg Documented By: WORD PROCESSING OPERATOR Sodium Bicarbonate (Sodium Bicarb 8.4% Inj 50 Meq/50 Ml Syr) 50 meq IV NOW STA Stop: 12/14/22 23:28 Last Admin: 12/15/22 00:07 Dose: 50 meq Documented By: REG Imaging Data Radiologist's Impression: Head CT 12/14/22 20:05 Exam(s): CT HEAD Without Contrast History: Reason for exam: Seizure. Exam: CT HEAD Without Contrast Technique more: CTDI is 37.75 mGy and DLP is 614.27 mGy-cm. Technique more: Automated exposure control was utilized for the study. A dose lowering technique was utilized adhering to the principles of ALARA. Comparison: CT head 04/30/2015 Findings: Right superior frontal probable 1 cm mass with surrounding extensive vasogenic edema. Metastases is suspected. Recommend follow-up MRI with contrast. Mild effacement of the sulci. Negative for midline shift. Remaining aguilar-white matter differentiation is normal. Paranasal sinuses, mastoid air cells are clear. Trace fluid in the inferior left mastoid air cells. Mild cerumen in left greater than right external auditory canal. Impression: 1. Right superior frontal 1 cm slightly hyperdense mass with extensive surrounding vasogenic edema. Suspect metastases or tumor. Recommend follow-up MRI with contrast. Electronically signed by: Francisco Gallagher MD 12/14/22 22:17 PM Abdomen/Pelvis CT 12/14/22 20:08 Exam(s): CT ABDOMEN + PELVIS With Contrast IV Amt: 86ml History: Reason for exam: Renal failure, abd pain, breast CA. Exam: CT ABDOMEN + PELVIS With Contrast Technique more: CTDI is 37.75 mGy and DLP is 614.27 mGy-cm. Patient received 86ml of IV contrast Technique more: Automated exposure control was utilized for the study. A dose lowering technique was utilized adhering to the principles of ALARA. Comparison: CT abdomen pelvis 05/03/2014 Findings: Lung bases: Partially seen large necrotic mass measuring approximately 7. 5 cm overlying the right hemidiaphragm. Additional masses partially included in the field of view. Basilar increased septal thickening is seen. Recommend correlation with CT chest and/or perhaps PET/CT. Distal heart and esophagus: Cardiomegaly. Left and right coronary calcification. Small hiatal hernia. Liver: Heterogeneous appearance to the liver faint hyperenhancing foci of the left and right lobe. Prominent splenic and portal vein. Gallbladder: Status post cholecystectomy. Negative for ductal dilation. Portal vein is patent. Spleen: Markedly enlarged with multiple splenic low-density foci. Nodular densities in the inferior perisplenic region potentially representing Pancreas: Slightly prominent without any focal finding. Adrenals: Normal Kidneys: Severe atrophy of the [place] kidneys. Retroperitoneum peripheral atherosclerotic calcification of abdominal aorta with moderate to severe stenosis near the aortic bifurcation and proximal left greater than right common iliac artery. Severe stenosis near iliac bifurcation. Bowel: Scattered gas and stool in colon. Nondistended transverse colon with small amount of fat within the mucosal wall suggesting chronic inflammation. Caliber of the small bowel loops is normal. Pelvis: Uterus is unremarkable. Partially distended urinary bladder. Pelvic sidewall, inguinal region are normal. Bones: Mild convex left curvature of the lumbar spine. Probable bone islands in anterior left iliac bone near the superior aspect of the SI joint. Impression: 1. Right lower lobe large necrotic mass partially included in the field of view overlying the right hemidiaphragm measuring at least 7.5 cm. Recommend correlation with CT chest and or perhaps PET/CT. Tomorrow metastases is suspected. 2. Heterogeneous foci in the liver and low density in spleen also suspicious for metastases. 3. Status post cholecystectomy. 4. Severe atrophy of bilateral [place] kidneys. 5. Atherosclerotic disease of abdominal aorta, aortic bifurcation and common iliac arteries. 6. Lumbar spine degenerative changes. Electronically signed by: Francisco Gallagher MD 12/14/22 22:35 PM Discharge Plan Visit Data Chief Complaint: Seizure Stated Complaint: SEIZURE, NAUSEA ED Provider: Tootie Savage Discharge Problem: Metastasis to brain, Seizure, Cerebral edema Forms Stand Alone Forms: [facility] Prescriptions Prescriptions: No Action metoprolol succinate [Toprol XL] 25 mg Tablet Extended Release 24 Hr 25 mg PO QAM albuterol sulfate 2.5 mg /3 mL (0.083 %) Solution For Nebulization 2.5 mg INHALATION DIRECTED PRN (Reason: Shortness Of Breath Or Wheezing) Rx Instructions: Use 1 vial in nebulizer every 4 hours as needed. hydralazine 25 mg Tablet 25 mg PO TID levothyroxine 75 mcg Tablet 75 mcg PO QAM simvastatin 20 mg Tablet 20 mg PO HS amlodipine 10 mg Tablet 10 mg PO QAM pantoprazole 40 mg Tablet,Delayed Release (Dr/Ec) 40 mg PO DAILYBB calcium acetate(phosphat bind) 667 mg capsule 667 mg PO TIDM famotidine 20 mg Tablet 20 mg PO HS benzonatate 200 mg capsule 200 mg PO TID PRN (Reason: Cough) aprepitant [Emend] 80 mg Capsule 80 mg PO QAM fluticasone furoate-vilanterol [Breo Ellipta] 200-25 mcg/dose blister with device 1 inh INHALATION QAM sucralfate [Carafate] 100 mg/mL suspension 10 ml PO QID Qty: 420 0RF Rx Instructions: swish in mouth and swallow; use after food/drink: May substitute tablets as a slurry. Referrals Referrals: César Barnes MD [Primary Care Provider] -
[2022-12-15 02:28] LABS: Thyroid Stimulating Hormone 7.126 uIu/ml (0.300-4.500)
[2022-12-15 02:48] LABS: T4 Free Thyroxine 1.09 ng/dl (0.61-1.60)
[2022-12-15] MEDS ORDERED: LORazepam 2 MG/1 ML VIAL IV PRN (03:28)
[2022-12-15] MEDS ORDERED: PROMETHAZINE HCL 6.25 MG in SODIUM CHLORIDE 0.9% 50 ML IV PRN (03:28)
[2022-12-15] MEDS ORDERED: SODIUM BICARB 8.4% INJ 50 MEQ/50 ML SYR IV STA (04:21)
[2022-12-15] MEDS ORDERED: SODIUM BICARBONATE 8.4% INJ 50 MEQ/50 ML VIAL IV STA (04:27)
[2022-12-15 05:14] LABS: BUN Creatinine Ratio 7.8 (10-20); Calcium 7.8 mg/dl (8.6-10.3); Creatinine Clr Calc Pharmacy 4.9 ml/min; Est GFR (African American) 6.6 ml/min; Est GFR (Non-African American) 5.7 ml/min; Potassium 5.8 mmol/L (3.5-5.1)
[2022-12-15 05:49] LABS: Basophils # (auto) 0.02 K/uL (0-0.2); Basophils % (auto) 0.4 %; Eosinophils # (auto) 0.01 K/uL (0-0.50); Eosinophils % (auto) 0.2 %; Hematocrit (blood only) 25.5 % (37.0-47.0); Hemoglobin 7.7 g/dl (12.0-16.0); Immature Granulocytes # (auto) 0.13 K/uL (0.01-0.20); Immature Granulocytes % (auto) 2.6 %; Lymphocytes # (auto) 0.18 K/uL (1.2-3.4); Lymphocytes % (auto) 3.5 %; Mean Corpuscular Hgb Conc 30.2 g/dL (32.0-36.0); Mean Corpuscular Volume 86.1 fL (80.0-100.0); Mean Platelet Volume 11.7 fL (9.4-12.4); Monocytes # (auto) 0.19 K/uL (0.11-0.59); Monocytes % (auto) 3.7 %; Neutrophils # (auto) 4.55 K/uL (1.40-6.50); Neutrophils % (auto) 89.6 %; Platelet Count 92 K/uL (130-400); RDW Coefficient of Variation 19.4 % (11.5-14.5); RDW Standard Deviation 60.6 fL (36.4-46.3); Red Blood Count 2.96 M/uL (4.20-5.40); Tear Drop Cells 1+; White Blood Count 5.08 K/ul (4.8-10.8)
[2022-12-15] MEDS: LEVOTHYROXINE SODIUM 75 MCG TABLET PO SCH (05:53)
[2022-12-15] MEDS: PANTOprazole 40 MG TAB PO SCH (05:53)
[2022-12-15] MEDS: dexAMETHasone 4 MG in SYRINGE 0 ML IV SCH ×4 (06:02→23:08)
[2022-12-15] MEDS: SUCRALFATE 1 GM/10 ML UDC PO SCH ×4 (07:58→21:02)
[2022-12-15] MEDS: FLUTICASONE/VILANTEROL 200/25MCG 14 PUFFS/INHALER INH SCH (07:58)
--- NOTE | 2022-12-15 08:03 | XRay Report ---
XR chest 1V portable HISTORY: 62 years-old Female tachypnea acute shortness of breath COMPARISON: Chest CT 12/03/2022 TECHNIQUE: AP view of the chest FINDINGS: Cardiac silhouette is enlarged. Unchanged bilateral hilar enlargement. Masslike opacity of the medial right lung base/right infrahilar distribution is again noted measuring up to approximately 6.5 cm. E xtensive reticular interstitial opacities are again noted throughout the lungs, left greater than rig ht. Degenerative changes of the shoulders and spine. Surgical clips of the left lung base and left ax illa with left axillary stent graft. IMPRESSION: 1. No acute processes of the chest. 2. Masslike opacity of the medial right lung base/right infrahilar distribution redemonstrated measur ing up to approximately 6.5 cm, better characterized on the chest CT from 12/03/2022. 3. Left greater than right mixed interstitial and alveolar opacities appear unchanged. ACT 112: Negative or not required by law. The above report was generated using voice recognition software. It may contain grammatical, syntax o r spelling errors. Electronically signed by: Jesse Plunkett M.D. 12/15/2022 8:00 AM
--- NOTE | 2022-12-15 08:47 | Neurology Consultation ---
Date of Consultation December 15, 2022 Assessment & Plan (1) New onset seizure: (2) Metastasis to brain: (3) Cerebral edema: (4) Mass of right lung: (5) Acute encephalopathy: Plan this patient had new onset seizure December 14 at home and then again in the emergency room. The localization is difficult because the patient had head and eyes turning to the left with right arm and leg seizure activity. CT scan shows a right frontal lesion with mass effect which could be metastases. if the seizure origin was coming from the right frontal I would expect the head turned to the left and the left arm and leg have seizure activity. if the seizure activity was coming from the left hemisphere than the right arm and leg would have seizure activity but the head and eyes would turn to the right. A stroke could have the head and eyes turned towards the side of the stroke. She has an acute encephalopathy likely postictal effect plus Ativan affect. She could also be sleepy from cerebral edema creating pressure. Recommendations: 1. continue levetiracetam 250 mg IV q.6 hours. Do this for 24 hours and then I will likely decrease to 250 mg IV Q 8 hours (or switch to p.o. when able to take p.o. well ). 2. MRI of the brain with and without contrast. 3. EEG is pending. 4. consider Decadron 4 mg twice a day for now but I will leave this to the oncologist or radiation therapy is to recommend also. 5. Otherwise I will follow Overall, I spent a total of 90 minutes with this case including review of records, review of CT films, direct evaluation the patient at bedside, and discussing the case with the patient and RN at bedside as well as Dr. Washburn and Martha Amezcua of Radiation Oncology, including differential diagnosis and treatment options. History of Present Illness Reason for Consultation: Patient is a 62-year-old, was asked to see at the request of Dr. Cuello, for neurologic consultation regarding new onset seizures and probable brain metastases. Patient has a history of breast cancer years ago post surgery and radiation therapy. I have little to no details regarding this. In April of 2019 she had focused radiation to the chest for non-small cell lung cancer. As far as I can tell, no chemotherapy was given. In addition, she is a former smoker, has a history of COPD, and has end-stage renal disease on dialysis. 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 She also has diastolic congestive heart failure. The patient has no history of seizures. Over the last 3-4 weeks she has had increase fatigue and generalized weakness with lack of appetite and weight loss. She has had some cognitive issues as well. She was not been complaining of headaches as far as I can gather Yesterday evening the patient was at home, attempted to eat, had a witnessed seizure. According to the emergency room physician's note (as well as the admitting RN in the ER), her head turned to the left and she had shaking for about 10-15 minutes. One note mentioned that the shaking was in the right arm and leg but the other 1 did not mention that. She had no incontinence of urine or tongue biting. Following this episode she was sleepy. There was a nursing report in the ER that the patient had some seizure-like activity at 2027, but there is no mention of what the patient actually did during the seizure , or how long it lasted. Dr. gloria jay wrote that the patient's head turn to the left and had left-sided gaze preference. The right upper and right lower extremities were rhythmically convulsing. There is no mention of duration. She ended up getting 4 mg of IV Ativan and 1 g of levetiracetam IV. there has been no seizure activity reported since. She arrived at the emergency room at 193 with a temperature 37.0, pulse 83 and regular, respiratory rate 28, blood pressure 131/50, and O2 saturation 100%. She was apparently awake and alert at 1st but then went into the seizure as noted above. CBC was unremarkable and Chem profile showed hyperkalemia at 5.8, alk-phos was elevated 152 and total bili at 1.3. BUN and creatinine were elevated as typical. CT scan of the head showed a right sided mass with significant vasogenic edema. This was suspicious for tumor reviewed these films. CT scan of the abdomen and pelvis showed right lower lobe necrotic mass with heterogeneous foci in the liver and spleen The patient had some abdominal pain but no headache. She was sleepy. Repeat labs today reveal some anemia, low calcium at 7.8, elevated potassium at 5 8. Attending Physician: Иван Washburn MD Allergies Allergy/AdvReac Type Severity Reaction Status Date / Time aspirin Allergy Severe EDEMA Verified 12/14/22 22:48 FACE/LIPS/TONGUE dipyridamole Allergy Severe "Bad Verified 12/14/22 22:48 reaction" per records naproxen Allergy Severe EDEMA Verified 12/14/22 22:48 FACE/LIPS/TONGUE atropine Allergy Intermediate Dyspnea/WHE Verified 12/14/22 22:48 EZING vancomycin Allergy Intermediate Rash/tommy Verified 12/14/22 22:48 syndrome maprotiline Allergy Unknown Unknown Verified 12/14/22 22:48 latex Allergy Unknown Verified 12/14/22 22:49 valacyclovir [From Valtrex] AdvReac Severe "FREAKED Verified 12/14/22 22:48 OUT HAD TO BE HOSPITALIZED". linezolid AdvReac Intermediate Thrombocyto Verified 12/14/22 22:48 penia salicylates AdvReac Intermediate Gastrointestinal Verified 12/14/22 22:48 Upset Home Medications Medication Instructions Recorded Confirmed Type albuterol sulfate 2.5 mg/3 mL 2.5 mg inhalation DIRECTED PRN 11/02/18 12/14/22 History (0.083 %) solution for nebulization Shortness Of Breath Or Wheezing hydralazine 25 mg tablet 25 mg PO TID 11/02/18 12/14/22 History levothyroxine 75 mcg tablet 75 mcg PO QAM 11/02/18 12/14/22 History simvastatin 20 mg tablet 20 mg PO HS 11/02/18 12/14/22 History amlodipine 10 mg tablet 10 mg PO QAM 07/14/19 12/14/22 History pantoprazole 40 mg tablet,delayed 40 mg PO DAILYBB 07/14/19 12/14/22 History release metoprolol succinate 25 mg 25 mg PO QAM 11/19/19 12/14/22 History tablet,extended release 24 hr (Toprol XL) calcium acetate(phosphat bind) 667 667 mg PO TIDM 05/20/21 12/14/22 History mg capsule famotidine 20 mg tablet 20 mg PO HS 10/18/21 12/14/22 History aprepitant 80 mg capsule (Emend) 80 mg PO QAM 12/03/22 12/14/22 History benzonatate 200 mg capsule 200 mg PO TID PRN Cough 12/03/22 12/14/22 History fluticasone furoate 200 1 inh inhalation QAM 12/03/22 12/14/22 History mcg-vilanterol 25 mcg/dose inhalation powder (Breo Ellipta) sucralfate 100 mg/mL oral 10 ml PO QID #420 mL 12/03/22 12/14/22 Rx suspension (Carafate) Patient History Medical History Anemia of chronic renal failure AV fistula LUE Breast cancer DX 2000 s/p chemo/xrt CAD (coronary artery disease) Chronic diarrhea Chronic hypoxemic respiratory failure Cirrhosis per records COPD (chronic obstructive pulmonary disease) Esophageal polyp ESRD (end stage renal disease) dialysis Thursday//Thursday ([place]) THIS WEEK D/T UPCOMING PROCEDURE ON 08/21/22 DIALYSIS , THU AND THU GERD (gastroesophageal reflux disease) History of abdominal paracentesis Hyperlipidemia Hypertension Hypothyroidism Interstitial lung disease Multiple pulmonary nodules determined by computed tomography of lung Nausea Non-ischemic cardiomyopathy Non-small cell lung cancer (NSCLC) dx 04/2019; s/p XRT; RML, RLL. Follows with [facility], R-Onc On home oxygen therapy 2L O2 HS Poor historian Splenomegaly, not elsewhere classified w/ multiple hypodense masses stable on fall 2019 imaging and present since at least 2005 Thrombocytopenia chronic, 2/2 cirrhosis. Surgical History H/O partial thyroidectomy GOITER History of bronchoscopy History of cardiac cath 2013- NO STENTS History of colonoscopy History of esophagogastroduodenoscopy (EGD) History of tooth extraction Hx of lumpectomy LEFT S/P arteriovenous (AV) fistula creation left arm > upper S/P laparoscopic cholecystectomy 06/2020 [facility] [place] Family History Other Family history non-contributory No family history of adverse response to anesthesia Social History Smoking Status: Unknown if ever smoked Tobacco Type: Cigarettes Preferred Language: Spanish Communication Ability: Effective Agriculture Specialist Required: No Beliefs That Will Affect Care: None marital status: Current Living Situation: Spouse and Family current occupational status: disabled How many Children do You have: 2 Other Information That Helps Us Care for You: No Feels Safe at Home: Yes Assistive Devices: Oxygen - Continuous Review of Systems Review of Systems: review of systems is difficult due to being very sleepy (although she tries to answer questions ). She has some abdominal pain but no headache or other pain. Exam (Neuro) Physical Exam: The patient is right-handed. The patient is Sleepy but arousable with voice and gentle shake. She has no obvious a facial or dysarthria and will follow one-step commands and speak words. Pupils are 4 mm bilaterally and reactive to light. Extraocular eye muscles are intact without nystagmus. Visual acuity and visual gillis seem normal grossly to confrontation. There are no deficits to sensation in the face in all 3 distributions of the fifth cranial nerve bilaterally. Corneal reflexes are positive bilaterally. Facial strength and symmetry was normal bilaterally. Hearing seems normal bilaterally. Palate moves well without asymmetry. There is normal sternocleidomastoid and trapezius (shoulder shrug) strength bilaterally. Tongue is midline with good strength bilaterally. Neck has a full range of motion without discomfort. Cervical, thoracic, and lumbar spine are nontender to palpation. Gait Is not testable as she is bed-bound. With outstretched arms there is no drift. There are no resting, postural, or action tremors. There is no ataxia with finger to nose testing. There is Reasonable facility in the hands. No other abnormal involuntary movements are noted. Motor strength is 4/5 diffusely in the arms bilaterally including deltoids, biceps, triceps, brachioradialis, wrist flexors and extensors, wet machine tender, and intrinsic hand muscles. Motor strength is 5/5 diffusely in the legs bilaterally including hip flexors, quadriceps, hamstrings, gastrocnemius, tibialis anterior, tibialis posterior, and Peroneii muscles. The patient is quite thin / cachectic throughout. The limbs have good tone without rigidity or spasticity. there is no tenderness to palpation, no myotonia to percussion, and no fasciculations seen. Sensory examination is intact to touch and pin throughout all 4 limbs diffusely , although she is not alert enough for a full sensory exam Reflexes are 2/4 in the biceps, triceps, brachioradialis, quadriceps, and Achilles tendons bilaterally. There is no clonus bilaterally. Toes are upgoing with plantar stimulation bilaterally. Peripheral pulses are present and of normal quality distally in all 4 limbs. There is no peripheral edema noted in the limbs. Results & Data Vital Signs (Past 12 Hours) Vital Signs Temp Pulse Pulse Resp BP BP Pulse Ox 12/15/22 07:52 36.4 C L 77 18 102/55 L 100 12/15/22 07:31 75 12/15/22 05:19 12/15/22 05:19 36.6 C 79 16 124/53 L 98 12/15/22 03:59 76 12/15/22 04:01 12/15/22 04:00 76 23 134/60 97 12/15/22 03:02 71 20 124/62 99 12/15/22 01:20 77 20 100 12/15/22 01:10 76 26 H 99 12/15/22 01:00 76 20 99 12/15/22 01:00 120/52 L 12/15/22 00:50 76 18 99 12/15/22 00:40 75 17 99 12/15/22 00:30 74 18 100 12/15/22 00:30 119/50 L 12/15/22 00:20 72 19 98 12/15/22 00:10 69 20 99 12/15/22 00:00 67 21 100 12/15/22 00:00 120/51 L 12/14/22 23:50 69 26 H 99 12/14/22 23:40 67 19 100 12/14/22 23:30 67 19 100 12/14/22 23:30 93/41 L 12/14/22 23:20 67 20 100 12/14/22 23:10 69 18 96 12/14/22 23:00 68 19 96 12/14/22 23:00 109/49 L 12/14/22 22:50 68 20 96 12/14/22 22:40 69 19 94 12/14/22 22:30 69 19 94 12/14/22 22:30 92/45 L 12/14/22 22:20 71 20 96 12/14/22 22:10 70 18 95 12/14/22 22:00 72 25 H 100 12/14/22 21:50 72 21 99 12/14/22 21:45 72 19 99 12/14/22 21:45 119/53 L 12/14/22 21:40 72 19 100 12/14/22 21:37 123/58 L 12/14/22 21:37 73 18 99 12/14/22 21:34 73 21 99 04/09/23 21:10 98 12/14/22 21:00 73 21 99 12/14/22 21:00 113/55 L 12/14/22 20:50 73 21 100 12/14/22 20:45 72 22 99 12/14/22 20:45 114/54 L Pulse Ox O2 Del Method O2 Del Method O2 Flow Rate O2 Flow Rate 12/15/22 07:52 Nasal Cannula 1 12/15/22 07:31 12/15/22 05:19 Nasal Cannula 1 12/15/22 05:19 Nasal Cannula 1 12/15/22 03:59 12/15/22 04:01 98 Nasal Cannula 2 12/15/22 04:00 Nasal Cannula 2 12/15/22 03:02 Room Air 12/15/22 01:20 12/15/22 01:10 12/15/22 01:00 12/15/22 01:00 12/15/22 00:50 12/15/22 00:40 12/15/22 00:30 12/15/22 00:30 12/15/22 00:20 12/15/22 00:10 12/15/22 00:00 12/15/22 00:00 12/14/22 23:50 12/14/22 23:40 12/14/22 23:30 12/14/22 23:30 12/14/22 23:20 12/14/22 23:10 12/14/22 23:00 12/14/22 23:00 12/14/22 22:50 12/14/22 22:40 12/14/22 22:30 12/14/22 22:30 12/14/22 22:20 12/14/22 22:10 12/14/22 22:00 12/14/22 21:50 12/14/22 21:45 12/14/22 21:45 12/14/22 21:40 12/14/22 21:37 12/14/22 21:37 12/14/22 21:34 12/14/22 21:10 12/14/22 21:00 12/14/22 21:00 12/14/22 20:50 12/14/22 20:45 12/14/22 20:45 PG Care Time/CCT Total # of Minutes Spent Total Time Spent with Patient: Total time spent is greater than 50% in coordination of care (as documented) at patient's floor/unit and/or counseling patient: Coding Level of Care Code 53031 INT INP/OBS CARE MIN Diagnoses New onset seizure R56.9 Metastasis to brain C79.31 Cerebral edema G93.6 Mass of right lung R91.8 Acute encephalopathy G93.40 Time Spent (min) 90
--- NOTE | 2022-12-15 08:52 | Radiation OncologyConsultation ---
Date of Consultation December 15, 2022 Assessment & Plan (1) Metastasis to brain: This is a 62-year-old female with a remote history of breast cancer in 2000. This was stage I. She underwent breast conserving surgery followed by chemotherapy and then radiation. She then was diagnosed with an adenocarcinoma of the lung in 2019. This was stage I. She underwent SBRT at [facility] in [place]. Of late she has had steady decrease in appetite with weight loss. She had a seizure at home and was brought to the emergency room where she again had seizure activity. Studies have been done revealing a mass of the right frontal lobe probable brain metastasis. There is surrounding vasogenic edema. She is on dexamethasone. CT recommended MRI. We are in agreement that she needs to undergo the MRI for further evaluation. This will determine if there are other smaller lesions. She will have an EEG today. She continues on her antiseizure medication. We will continue to follow her to review the MRI. Plan ATTENDING ADDENDUM: Assessment: Ms. Grant is a 62-year-old female who presents with a history of breast cancer treated with surgery, chemotherapy and radiation therapy (2000) and more recently early stage lung cancer treatment lung SBRT (2019). The patient was admitted to the hospital due to a seizure at home. The patient did have a CT head without contrast which does suggest potential metastatic disease. The patient is scheduled to undergo an MRI of the brain which has not been completed. Plan: 1. MRI of brain. Review imaging results with midlevel provider. Likely p atient will need some form of radiation therapy. 2. Appreciate neurology input. 3. Comprehensive staging work-up could be beneficial if needed in the inpatient or outpatient setting. 4. Patient and family encouraged to call us with any further questions or concerns. History of Present Illness Reason for Consultation: Right frontal lobe mass with edema. Requesting Physician: Dr. Darell Cuello Attending Physician: Иван Washburn MD History of Present Illness 11/10/2000. Status post completion of radiation therapy to the left breast. She received 6120 cGy (Dr. Mariaelena Elizabeth). This was a poorly differentiated infiltrating ductal carcinoma in the upper outer quadrant. Stage [id number]. Stage I. She had breast conservative surgery followed by CMF chemotherapy for 6 cycles. Then radiation. Adenocarcinoma of the right middle lobe. Stage IA 3. 05/02/2019-05/13/2019. Definitive SBRT to right middle lobe lung lesion. She received 5000 cGy in 5 fractions. (Dr. Goldstein). Decreased appetite with weight loss and general malaise over the past few weeks. Abdominal pain. Evaluation by primary care physician (Dr. Barnes). 12/03/2022. CT of the chest. IMPRESSION: 1. Interval expansion of the right middle lobe with a lobular low-density focus which measures 6.5 x 4.9 cm. This is surrounded by the hyperdense material within the right middle lobe seen on the prior study. A cystic heterogeneous mass of the right middle lobe is the diagnosis of exclusion. This could also represent multiple dilated impacted r ight middle lobe bronchi. Therefore, follow-up bronchoscopy recommended. 2. The irregular mixed density focus within the base of the right lower lobe has also slightly increased in size and now measures 3.9 x 2.1 cm. 3. Diffuse interlobular septal thickening and near diffuse groundglass airspace opacities are again noted. 4. No change in the hyperdense mediastinal and bilateral hilar lymphadenopathy. 5. Stable cardiomegaly. 12/03/2022. CT of abdomen and pelvis. IMPRESSION: 1. No acute infectious or inflammatory findings are identified in the abdomen or pelvis. 2. The liver is cirrhotic in morphology and heterogeneous in attenuation. 3. Splenomegaly and a small amount of pelvic ascites indicate portal hypertension. 4. There is a 1.5 cm indeterminate lesion in the lower pole of left kidney. This is new from 05/20/2021 and does not represent a simple cyst. A renal neoplasm is not excluded. An ultrasound of the kidneys is recommended for further evaluation. 5. Cardiomegaly with evidence of anemia and fluid overload/congestive change. Bibasilar groundglass opacity likely represent pulmonary edema and clinical correlation will be required. 6. There is an approximately 6.5 x 4 cm lobulated hypodense septated lesion in the right middle lobe which is new from 05/20/2021. This is pathologically indeterminant and a neoplasm is not excluded. Pulmonology follow up isrecommended. 7. Additional hyperdense opacities at the right lung base are again noted. These have modestly increased in size from previous. See report of chest CT performed concurrently for detailed pulmonary findings. 12/14/2022. On sent of seizures. 12/14/2022. Head CT. Without contrast. Right superior frontal 1 cm slightly hyperdense mass with extensive surrounding vasogenic edema. Suspect metastasis or tumor. Recommend MRI. 12/14/2022. CT of abdomen and pelvis. Impression: 1. Right lower lobe large necrotic mass partially included in the field of view overlying the right hemidiaphragm measuring at least 7.5 cm. Recommend correlation with CT chest and or perhaps PET/CT. Tomorrow metastases is suspected. 2. Heterogeneous foci in the liver and low density in spleen also suspicious for metastases. 3. Sta tus post cholecystectomy. 4. Severe atrophy of bilateral [place] kidneys. 5. Atherosclerotic disease of abdominal aorta, aortic bifurcation and common iliac arteries. 6. Lumbar spine degenerative changes. Allergies Allergy/AdvReac Type Severity Reaction Status Date / Time aspirin Allergy Severe EDEMA Verified 12/14/22 22:48 FACE/LIPS/TONGUE dipyridamole Allergy Severe "Bad Verified 12/14/22 22:48 reaction" per records naproxen Allergy Severe EDEMA Verified 12/14/22 22:48 FACE/LIPS/TONGUE atropine Allergy Intermediate Dyspnea/WHE Verified 12/14/22 22:48 EZING vancomycin Allergy Intermediate Rash/tommy Verified 12/14/22 22:48 syndrome maprotiline Allergy Unknown Unknown Verified 12/14/22 22:48 latex Allergy Unknown Verified 12/14/22 22:49 valacyclovir [From Valtrex] AdvReac Severe "FREAKED Verified 12/14/22 22:48 OUT HAD TO BE HOSPITALIZED". linezolid AdvReac Intermediate Thrombocyto Verified 12/14/22 22:48 penia salicylates AdvReac Intermediate Gastrointestinal Verified 12/14/22 22:48 Upset Home Medications Medication Instructions Recorded Confirmed Type albuterol sulfate 2.5 mg/3 mL 2.5 mg inhalation DIRECTED PRN 11/02/18 12/14/22 History (0.083 %) solution for nebulization Shortness Of Breath Or Wheezing hydralazine 25 mg tablet 25 mg PO TID 11/02/18 12/14/22 History levothyroxine 75 mcg tablet 75 mcg PO QAM 11/02/18 12/14/22 History simvastatin 20 mg tablet 20 mg PO HS 11/02/18 12/14/22 History amlodipine 10 mg tablet 10 mg PO QAM 07/14/19 12/14/22 History pantoprazole 40 mg tablet,delayed 40 mg PO DAILYBB 07/14/19 12/14/22 History release metoprolol succinate 25 mg 25 mg PO QAM 11/19/19 12/14/22 History tablet,extended release 24 hr (Toprol XL) calcium acetate(phosphat bind) 667 667 mg PO TIDM 05/20/21 12/14/22 History mg capsule famotidine 20 mg tablet 20 mg PO HS 10/18/21 12/14/22 History aprepitant 80 mg capsule (Emend) 80 mg PO QAM 12/03/22 12/14/22 History benzonatate 200 mg capsule 200 mg PO TID PRN Cough 12/03/22 12/14/22 History fluticasone furoate 200 1 inh inhalation QAM 12/03/22 12/14/22 History mcg-vilanterol 25 mcg/dose inhalation powder (Breo Ellipta) sucralfate 100 mg/mL oral 10 ml PO QID #420 mL 12/03/22 12/14/22 Rx suspension (Carafate) Patient History Medical History Anemia of chronic renal failure AV fistula LUE Breast cancer DX 2000 s/p chemo/xrt CAD (coronary artery disease) Chronic diarrhea Chronic hypoxemic respiratory failure Cirrhosis per records COPD (chronic obstructive pulmonary disease) Esophageal polyp ESRD (end stage renal disease) dialysis Thursday//Thursday ([facility]) THIS WEEK D/T UPCOMING PROCEDURE ON 08/21/22 DIALYSIS , THU AND SAT GERD (gastroesophageal reflux disease) History of abdominal paracentesis Hyperlipidemia Hypertension Hypothyroidism Interstitial lung disease Multiple pulmonary nodules determined by computed tomography of lung Nausea Non-ischemic cardiomyopathy Non-small cell lung cancer (NSCLC) dx 04/2019; s/p XRT; RML, RLL. Follows with [facility], R-Onc On home oxygen therapy 2L O2 HS Poor historian Splenomegaly, not elsewhere classified w/ multiple hypodense masses stable on fall 2019 imaging and present since at least 2005 Thrombocytopenia chronic, 2/2 cirrhosis. Surgical History H/O partial thyroidectomy GOITER History of bronchoscopy History of cardiac cath 2014- NO STENTS History of colonoscopy History of esophagogastroduodenoscopy (EGD) History of tooth extraction Hx of lumpectomy LEFT S/P arteriovenous (AV) fistula creation left arm > upper S/P laparoscopic cholecystectomy 06/2020 [facility] Family History Other Family history non-contributory No family history of adverse response to anesthesia Social History Smoking Status: Unknown if ever smoked Tobacco Type: Cigarettes Preferred Language: German Communication Ability: Effective Csm Consultant Required: No Beliefs That Will Affect Care: None marital status: Current Living Situation: Spouse and Family current occupational status: disabled How many Children do You have: 2 Other Information That Helps Us Care for You: No Feels Safe at Home: Yes Assistive Devices: Oxygen - Continuous Radiation History 11/10/2000. Status post completion of radiation therapy to the left breast. She received 6120 cGy (Dr. Mariaelena Elizabeth). This was a poorly differentiated infiltrating ductal carcinoma in the upper outer quadrant. Stage [id number]. Stage I. She had breast conservative surgery followed by CMF chemotherapy for 6 cycles. Then radiation. Adenocarcinoma of the right middle lobe. Stage IA 3. 05/02/2019-05/13/2019. Definitive SBRT to right middle lobe lung lesion. She rece ived 5000 cGy in 5 fractions. (Dr. Goldstein). Review of Systems Review of Systems: 13 point review of systems completed. Patient is lethargic but does awaken to answer her questions. Patient is postictal. She is very lethargic. She received Ativan in the emergency room to help with her seizures. Neurology has been consulted. Medications have been started to prevent seizures. I was present with the neurologist type completed. Exam (Dr. Cheek). Recommendation is for an MRI. Physical Exam Constitutional: WD/WN, vitals as above + thin, + frail appearing and + lethargic Eyes: EOM intact bilaterally ENMT: Ears: no hearing impairment Neck: trachea midline, no thyromegaly Respiratory: normal respiratory effort, lungs clear to auscultation Auscultation: + diminished lung sounds Cardiovascular: RRR, no murmur, no edema Chest (Breasts): Additional Comments: No palpable breast masses bilaterally. No axillary lymphadenopathy is noted. Gastrointestinal (Abdomen): normal bowel sounds, soft, nontender, no hepatosplenomegaly Skin: no rashes, warm and dry Neurologic: PERRL, EOMI, accommodation nl, no face palsy, no dysarthria Equal strength and coordination. Psychiatric: A+Ox3, euthymic affect Lymphatic: no cervical or axillary lymphadenopathy Results (Rad Onc) Pathology Results: were reviewed and pertinent findings noted in HPI Imaging Studies: were reviewed and pertinent findings noted in HPI Time Spent Midlevel I spent [15] minutes in preparation for this follow up evaluation including reviewing all the clinical records, reviewing laboratory studies, pathology reports and imaging results. Review of imaging. I spent [20] minutes with direct face to face interaction with the patient and/or family including performing a physical exam and answering all questions. I spent [10] minutes documenting this patient's visit. PG Care Time/CCT Total # of Minutes Spent Total Time Spent with Patient: Total time spent is greater than 50% in coordination of care (as documented) at patient's floor/unit and/or counseling patient: Coding Level of Care Code 14530 IN/OBS CONSULT LVL 3,45M Diagnoses Metastasis to brain C79.31
--- NOTE | 2022-12-15 09:19 | Electroencephalogram ---
EEG Procedure Note Date of Service December 15, 2022 Start / End Times Start Time: 850 End Time: [address] Cuello History 62-year-old with history of new onset seizure December 14 with a focal lesion in her right frontal lobe. Home Medication List Medication Instructions Recorded Confirmed Type albuterol sulfate 2.5 mg/3 mL 2.5 mg inhalation DIRECTED PRN 11/02/18 12/14/22 History (0.083 %) solution for nebulization Shortness Of Breath Or Wheezing hydralazine 25 mg tablet 25 mg PO TID 11/02/18 12/14/22 History levothyroxine 75 mcg tablet 75 mcg PO QAM 11/02/18 12/14/22 History simvastatin 20 mg tablet 20 mg PO HS 11/02/18 12/14/22 History amlodipine 10 mg tablet 10 mg PO QAM 07/14/19 12/14/22 History pantoprazole 40 mg tablet,delayed 40 mg PO DAILYBB 07/14/19 12/14/22 History release metoprolol succinate 25 mg 25 mg PO QAM 11/19/19 12/14/22 History tablet,extended release 24 hr (Toprol XL) calcium acetate(phosphat bind) 667 667 mg PO TIDM 05/20/21 12/14/22 History mg capsule famotidine 20 mg tablet 20 mg PO HS 10/18/21 12/14/22 History aprepitant 80 mg capsule (Emend) 80 mg PO QAM 12/03/22 12/14/22 History benzonatate 200 mg capsule 200 mg PO TID PRN Cough 12/03/22 12/14/22 History fluticasone furoate 200 1 inh inhalation QAM 12/03/22 12/14/22 History mcg-vilanterol 25 mcg/dose inhalation powder (Breo Ellipta) sucralfate 100 mg/mL oral 10 ml PO QID #420 mL 12/03/22 12/14/22 Rx suspension (Carafate) Inpatient Medication List Fluticasone/Vilanterol (Fluticasone/Vilanterol 200/25mcg 14 Puffs/Inhaler) 1 puffs INH QAM [facility] Stop: 01/14/23 08:59 Last Admin: 12/15/22 07:58 Dose: Not Given Documented By: SML Dexamethasone 4 mg/ Syringe 1 mls @ 1 mls/min IV Q6H KAVON Stop: 01/14/23 05:59 Last Admin: 12/15/22 06:02 Dose: 1 mls/min Documented By: FELIX Levothyroxine Sodium (Levothyroxine Sodium 75 Mcg Tablet) 75 mcg PO DAILYBB [facility] Stop: 01/14/23 06:29 Last Admin: 12/15/22 05:53 Dose: Not Given Documented By: FELIX Pantoprazole Sodium (Pantoprazole 40 Mg Tab) 40 mg PO DAILYBB [facility] Stop: 01/14/23 06:29 Last Admin: 12/15/22 05:53 Dose: Not Given Documented By: FELIX Sucralfate (Sucralfate 1 Gm/10 Ml Udc) 1 gm PO ACHS KAVON Stop: 01/14/23 07:29 Last Admin: 12/15/22 07:58 Dose: Not Given Documented By: SML Discontinued Medications Dexamethasone (Dexamethasone Sod Inj 4 Mg/Ml Vial) 10 mg IV NOW STA Stop: 12/14/22 22:23 Last Admin: 12/14/22 23:10 Dose: 10 mg Documented By: REG Dextrose (Dextrose 50% 50 Ml Syringe) 50 ml IV NOW ONE Stop: 12/14/22 23:31 Last Admin: 12/15/22 00:07 Dose: 50 ml Documented By: REG Sodium Chloride (Nss 1000ml) 1,000 mls @ 999 mls/hr IV .Q1H1M ONE Stop: 12/14/22 21:05 Last Infusion: 12/14/22 23:54 Dose: 0 mls/hr Documented By: WARP SPINNER Admin: 12/14/22 20:20 Dose: 999 mls/hr Documented By: REG Levetiracetam 1,000 mg/ Sodium (Chloride) 110 mls @ 440 mls/hr IV NOW STA Stop: 12/14/22 20:21 Last Infusion: 12/14/22 22:01 Dose: 0 mls/hr Documented By: WARP SPINNER Admin: 12/14/22 21:34 Dose: 440 mls/hr Documented By: STEPHANIE Albumin Human (Albumin 25% 100 Ml) 25 gm in 100 mls @ 50 mls/hr IV ONE STA Stop: 12/15/22 03:00 Last Infusion: 12/15/22 04:28 Dose: 0 mls/hr Documented By: Admin: 12/15/22 02:25 Dose: 50 mls/hr Documented By: REG Insulin Human Regular (Novolin-R Insulin Per Unit Charge) 5 units IV NOW STA Stop: 12/14/22 23:28 Last Admin: 12/15/22 00:17 Dose: 5 units Documented By: REG Co-signed By: CATALINO Ioversol (Optiray 350 100ml) 86 ml IV ONCE ONE Stop: 12/14/22 21:22 Last Admin: 12/14/22 21:21 Dose: 86 ml Documented By: BILL Lorazepam (Lorazepam 2 Mg/1 Ml Vial) 2 mg IV NOW STA Stop: 12/14/22 20:05 Last Admin: 12/14/22 20:06 Dose: 2 mg Documented By: REG Lorazepam (Lorazepam 2 Mg/1 Ml Vial) Confirm Administered Dose 2 mg .ROUTE .STK- MED ONE Stop: 12/14/22 20:07 Last Admin: 12/14/22 20:20 Dose: 2 mg Documented By: REG Sodium Bicarbonate (Sodium Bicarb 8.4% Inj 50 Meq/50 Ml Syr) 50 meq IV NOW STA Stop: 12/14/22 23:28 Last Admin: 12/15/22 00:07 Dose: 50 meq Documented By: WARP SPINNER Sodium Bicarbonate (Sodium Bicarb 8.4% Inj 50 Meq/50 Ml Syr) 50 meq IV NOW STA Stop: 12/15/22 04:22 Last Admin: 12/15/22 05:53 Dose: 50 meq Documented By: FELIX Description This is a 21 electrode EEG with a single channel dedicated to limited EKG. The electrodes were placed in accordance with the International 10-20 system. Interpretation The predominant background activity consists of a fairly well modulated 10 Hz activity, of up to 40 mV in amplitude,seen symmetrically distributed over the posterior head regions bilaterally. This activity attenuates with eye-opening and other alerting procedures. Photic stimulation was performed and elicited no change in the background activity and no abnormal responses were seen. Hyperventilation was not performed. A minimal amount of muscle and movement artifact activity contaminated the recording and did not hinder interpretation to any significant degree. Throughout the waking portion of the recording, no focal abnormalities, abnormal slow activity, or potentially epileptogenic discharges are seen. The patient entered the drowsy state and brief periods of stage II sleep with no further activation. In summary, this EEG was normal during wakefulness and light sleep. Despite her CT scan showing a right frontal mass with edema, no focal abnormalities, potentially epileptogenic discharges, or abnormal slow activity was seen. Clinical Correlation The abscence of potentially epileptogenic activity does not exclude a seizure disorder, since interictally, EEGs can be normal. Clinical correlation is required. [facility] EEG Procedure Codes Indication for Procedure (1) New onset seizure: (2) Acute encephalopathy: (3) Metastasis to brain: Neurology Neurology: 39576 EEG include record awake & sleepy
--- NOTE | 2022-12-15 09:56 | Consultation ---
Date of Consultation December 15, 2022 Assessment & Plan (1) Mass of right lung: In the context of her smoking history and previous diagnosis of a right middle lobe adenocarcinoma, large mass in the right lower lobe certainly highly suspicious for yet another presentation perhaps of a metachronous primary as the current location seems distinct from that for which she was treated previously Immediate issue is the seizure with a small but perhaps strategically located CERTIFIED EXECUTIVE CHEF lesion on CT scan. Await MRI scan to see if there is more diffuse involvement. While current CT raises concerns over possible liver and/or splenic metastases, CTs just 2 weeks previously noted that the splenic lesions were longstanding and the liver pattern might simply be that of cirrhosis. Immediate management issues will need to focus on the further MRI definition of CERTIFIED EXECUTIVE CHEF disease and identification of any potential options for SRS especially if those studies do not reveal more widespread involvement. As her status is stabilized we will need to reassess her overall functionality and consider whether liver MRI and/or PET/CT may better define whether whether there are indeed suspicious lesions in the liver or elsewhere to suggest more than the only thus farf only firmly suggested oligometastatic disease to the brain. Diagnostically, liver biopsy might be the most useful if it can be performed with guided CT or US core needle to both definitively established the origin of metastatic disease and give ample material for NGS characterization. If augmented imaging does not clearly suggest liver metastases, would work with pulmonary medicine to define the best way to obtain tissue from the lung mass itself if that is the only clearly active side at this time. Differential diagnosis as above we will focus on recurrent/metachronous primary NSCLC but she does have a history of breast cancer as well, small cell lung cancer could be an alternative metachronous primary lung malignancy, some suggestions of GI issues though polyps there thus far have only shown hyperplastic change. If we are pursuing any further therapy, tissue diagnosis will obviously be critically important to best offer prognosis and treatment option review Even with relatively "oligometastatic" disease we will also need to take into account that she has significant comorbidities and performance status would probably not support major chest surgery. Can certainly discuss and explore radiation options to the lung and/or systemic options though even those may have significant potential morbidity/mortality risks. We will need to make sure that, to the extent we can, assure that the patient has a voice in determining the aggression with which we pursue her further diagnostic and therapeutic work- up or, if not, seek appropriate input from her family members who know her well (2) Metastasis to brain: Thus far has only a single lesion identified by CT scan. Await MRI to see if there is either more subtle lesions elsewhere or even meningeal changes which could fundamentally change the prognostication that CERTIFIED EXECUTIVE CHEF involvement portends. Given the presentation of seizures, she is appropriately aggressively being treated with anticonvulsants and steroids and there should be consideration for addressing that lesion. Overall comorbidities suggest against CERTIFIED EXECUTIVE CHEF resection, would instead consider SRS especially if this is an isolated area of involvement within the CERTIFIED EXECUTIVE CHEF (3) H/O mastectomy: Status post 2001 diagnosis of left breast cancer which had some aggressive features but the remote history and especially with what was apparently hormone receptor negative disease at presentation makes a late recurrence unlikely. Overall current pattern set against her smoking history and at least one other episode of NSCLC is much more strongly suggestive of a metachronous primary or late isolated metastatic recurrence of her NSCLC. Biopsy material, however, can more definitively assess for differential characteristics suggesting an alternative origin (4) Anemia: Rapid evolution of anemia in the context of admission with may be some degree of dilutional changes. I have initiated additional anemia work-up with reticulocyte count and nutritional studies. Has potential multifactorial contributions including anemia related to renal failure, possible chronic disease suppression. We note her simultaneous thrombocytopenia with some historic element of sequestration. We note that 2020 labs did show some mild folic acid deficiency but what appeared to be adequate B12 levels and actually elevated ferritin and percent iron saturations She has had apparent historic heme positive stools and ongoing work-up including previous identification of gastric polyps whose 2019 pathology was consistent with hyperplastic polyps. A series of [facility] the early part of [facility] with apparent similar findings and no acutely identified bleeding source. Iron studies may indicate the extent of concern regarding ongoing GI losses. (5) Thrombocytopenia: See anemia discussion. Thrombocytopenia may simply reflect sequestration but does have a history of folic acid deficiency and may benefit from empiric supplementation even as we await the results of pending lab Plan 1. Most urgent focus is identification of any further CERTIFIED EXECUTIVE CHEF lesions with MRI and continuation of dexamethasone/anticonvulsants while the MRI scan can set the stage for discussion for possible urgent SRS 2. Also should promptly address anemia with any interventions that can help to correct it particularly considering folic acid empiric supplementation while we await more formal laboratory review 3. As her situation hopefully stabilizes, would consider whether MRI of the liver and/or PET/CT scan can better assess for suspicious lesions in the liver and/or other more distant metastases who offer alternative sites for biopsy that may be dually productive in both confirming metastatic disease and giving good tissue for primary diagnosis and NGS studies. 4. If there are no other clearly definable/approachable distant lesions, do not think that resection of the CERTIFIED EXECUTIVE CHEF mass is a good option given her overall comorbidities. Would have to consider biopsy of the primary mass in the lung or diagnosis under those circumstances 5. Comorbidities and significant performance status issues probably preclude consideration of primary thoracic surgery even if this is oligometastatic disease though we can review the specifics further with pulmonary medicine. Much will depend on the patient's own indications of the urgency with which she wishes to pursue further diagnosis/intervention. If she does not regain adequate cognitive ability to make good medical decisions, will need to p otentially rely on those of her family members who know her well. History of Present Illness Reason for Consultation: History of lung adenocarcinoma with apparent localized recurrence and CERTIFIED EXECUTIVE CHEF metastasis presenting with seizure Attending Physician: Иван Washburn MD History of Present Illness Please note that this is a consultation constructed purely from review of the electronic database. I am working remotely and unable to speak directly with the patient or examine her. I reviewed [facility] records and the current admission records which seem to be an accurate source of relevant information but I am completely reliant on that for my conclusions and perspectives. If there are urgent concerns regarding the need for more direct [id number] review, you could consider transferring the patient to another institution. I will follow up with the patient in a [id number] meeting tomorrow to augment my assessment and recommendations. The evaluation is consultative in nature and all patient care and treatment decisions can either be accepted or rejected by the patient's primary hospital- based treating physician using their own independent medical judgment for their patient. Apparent [id number] smoking history, reportedly quit smoking 10 years ago Previous treatment for adenocarcinoma of the right middle lobe, Stage IA 3, 05/02/2019-05/13/2019 with definitive SBRT to right middle lobe lung lesion 5000 cGy in 5 fractions. (Dr. Goldstein). Most recent interim restaging prior to events of the last 4 weeks accomplished with 05/20/[address] 1. Cardiomegaly. Interlobular septal thickening consistent with interstitial pulmonary edema. Ground glass opacities have increased since prior exam. The findings favor alveolar pulmonary edema. An infectious process or pulmonary hemorrhage could appear similar although are considered less likely. 2. Trace bilateral pleural effusions. 3. Redemonstration of numerous irregular hyperdense foci within the lower lobes, greatest within the right lower lobe and right middle lobe with occlusion of the right middle lobe bronchi. Slight increase in size of a 3.4 x 2.4 cm right lower lobe hyperdense focus since prior CT. These are nonspecific although may reflect sequela of aspiration. Short-term follow-up CT in 3 months is recommended for reassessment. Consideration might also be given to bronchoscopy for evaluation of the right middle lobe abnormality if not already performed. 4. No change in mediastinal and hilar lymphadenopathy. Recently with decreased appetite with weight loss and general malaise over the past few weeks. 11/17/2022 primary care visit is initiated treatment for presumed COPD exacerbationsee office notes for details Postdialysis referral to ED 12/03/2022 for abdominal pain. 12/03/2022. CT of the chest. IMPRESSION: 1. Interval expansion of the right middle lobe with a lobular low-density focus which measures 6.5 x 4.9 cm. This is surrounded by the hyperdense material within the right middle lobe seen on the prior study. A cystic/heterogeneous mass of the right middle lobe is the diagnosis of exclusion. This could also represent multiple dilated impacted right middle lobe bronchi. Therefore, follow-up bronchoscopy recommended. 2. The irregular mixed density focus within the base of the right lower lobe has also slightly increased in size and now measures 3.9 x 2.1 cm. 3. Diffuse interlobular septal thickening and near diffuse groundglass airspace opacities are again noted. 4. No change in the hyperdense mediastinal and bilateral hilar lymphadenopathy. 5. Stable cardiomegaly. 12/03/2022. CT of abdomen and pelvis. IMPRESSION: 1. No acute infectious or inflammatory findings are identified in the abdomen or pelvis. 2. The liver is cirrhotic in morphology and heterogeneous in attenuation. 3. Splenomegaly and a small amount of pelvic ascites indicate portal hypertension. 4. There is a 1.5 cm indeterminate lesion in the lower pole of left kidney. This is new from 05/20/2021 and does not represent a simple cyst. A renal neoplasm is not excluded. An ultrasound of the kidneys is recommended for further evaluation. 5. Cardiomegaly with evidence of anemia and fluid overload/congestive change. Bibasilar groundglass opacity likely represent pulmonary edema and clinical correlation will be required. 6. There is an approximately 6.5 x 4 cm lobulated hypodense septated lesion in the right middle lobe which is new from 05/20/2021. This is pathologically indeterminant and a neoplasm is not excluded. Pulmonology follow up is recommended. 7. Additional hyperdense opacities at the right lung base are again noted. These have modestly increased in size from previous. See report of chest CT performed concurrently for detailed pulmonary findings. Patient was discharged for immediate outpatient follow-up including a 12/04/2022 pulmonary visit, see that for details. Patient was being referred back to her [facility] team for further evaluation but developed seizures prompting current admission. Both had a described seizure at home and then an apparent additional seizure witnessed in the emergency department. Has been started on Keppra and dexamethasone, radiation oncology is awaiting MRI results before making final comments on possible urgent treatment of the brain lesion(s) See also current neurology and radiation oncology consultations for additional details Note that she is also status post treatment for 2000 poorly differentiated infiltrating ductal left breast carcinoma stage [id number] / I. She had breast conservative surgery followed by [facility] chemotherapy for 6 cycles then status post 11/10/2020 completion of radiation therapy 6120 cGy (Dr. [facility]) Notes describe patient as still post ictal Comorbidities include chronic renal failure on dialysis, CAD with nonischemic cardiomyopathy, cirrhosis with ascites and, COPD on chronic oxygen therapy with interstitial lung change, GERD, hypertension, hypothyroidism status post partial thyroidectomy for goiter, splenomegaly presumed due to cirrhosis but with multiple hypodense masses noted and probable splenic sequestration related thrombocytopenia Allergies Allergy/AdvReac Type Severity Reaction Status Date / Time aspirin Allergy Severe EDEMA Verified 12/14/22 22:48 FACE/LIPS/TONGUE dipyridamole Allergy Severe "Bad Verified 12/14/22 22:48 reaction" per records naproxen Allergy Severe EDEMA Verified 12/14/22 22:48 FACE/LIPS/TONGUE atropine Allergy Intermediate Dyspnea/WHE Verified 12/14/22 22:48 EZING vancomycin Allergy Intermediate Rash/tommy Verified 12/14/22 22:48 syndrome maprotiline Allergy Unknown Unknown Verified 12/14/22 22:48 latex Allergy Unknown Verified 12/14/22 22:49 valacyclovir [From Valtrex] AdvReac Severe "FREAKED Verified 12/14/22 22:48 OUT HAD TO BE HOSPITALIZED". linezolid AdvReac Intermediate Thrombocyto Verified 12/14/22 22:48 penia salicylates AdvReac Intermediate Gastrointestinal Verified 12/14/22 22:48 Upset Home Medications Medication Instructions Recorded Confirmed Type albuterol sulfate 2.5 mg/3 mL 2.5 mg inhalation DIRECTED PRN 11/02/18 12/14/22 History (0.083 %) solution for nebulization Shortness Of Breath Or Wheezing hydralazine 25 mg tablet 25 mg PO TID 11/02/18 12/14/22 History levothyroxine 75 mcg tablet 75 mcg PO QAM 11/02/18 12/14/22 History simvastatin 20 mg tablet 20 mg PO HS 11/02/18 12/14/22 History amlodipine 10 mg tablet 10 mg PO QAM 07/14/19 12/14/22 History pantoprazole 40 mg tablet,delayed 40 mg PO DAILYBB 07/14/19 12/14/22 History release metoprolol succinate 25 mg 25 mg PO QAM 11/19/19 12/14/22 History tablet,extended release 24 hr (Toprol XL) calcium acetate(phosphat bind) 667 667 mg PO TIDM 05/20/21 12/14/22 History mg capsule famotidine 20 mg tablet 20 mg PO HS 10/18/21 12/14/22 History aprepitant 80 mg capsule (Emend) 80 mg PO QAM 12/03/22 12/14/22 History benzonatate 200 mg capsule 200 mg PO TID PRN Cough 12/03/22 12/14/22 History fluticasone furoate 200 1 inh inhalation QAM 12/03/22 12/14/22 History mcg-vilanterol 25 mcg/dose inhalation powder (Breo Ellipta) sucralfate 100 mg/mL oral 10 ml PO QID #420 mL 12/03/22 12/14/22 Rx suspension (Carafate) Patient History Medical History Anemia of chronic renal failure AV fistula LUE Breast cancer DX 2000 s/p chemo/xrt CAD (coronary artery disease) Chronic diarrhea Chronic hypoxemic respiratory failure Cirrhosis per records COPD (chronic obstructive pulmonary disease) Esophageal polyp ESRD (end stage renal disease) dialysis Thursday//Thursday ([place]) THIS WEEK D/T UPCOMING PROCEDURE ON 08/21/22 DIALYSIS , THU AND THU GERD (gastroesophageal reflux disease) History of abdominal paracentesis Hyperlipidemia Hypertension Hypothyroidism Interstitial lung disease Multiple pulmonary nodules determined by computed tomography of lung Nausea Non-ischemic cardiomyopathy Non-small cell lung cancer (NSCLC) dx 04/2019; s/p XRT; RML, RLL. Follows with [facility]/Onc, R-Onc On home oxygen therapy 2L O2 HS Poor historian Splenomegaly, not elsewhere classified w/ multiple hypodense masses stable on fall 2019 imaging and present since at least 2005 Thrombocytopenia chronic, 2/2 cirrhosis. Surgical History H/O partial thyroidectomy GOITER History of bronchoscopy History of cardiac cath 2013- NO STENTS History of colonoscopy History of esophagogastroduodenoscopy (EGD) History of tooth extraction Hx of lumpectomy LEFT S/P arteriovenous (AV) fistula creation left arm > upper S/P laparoscopic cholecystectomy 06/2020 [facility] Family History Other Family history non-contributory No family history of adverse response to anesthesia Social History Smoking Status: Unknown if ever smoked Tobacco Type: Cigarettes Preferred Language: Occitan Communication Ability: Effective 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 I do note that vital signs seem stable with good oxygenation listed to be on room air. Results & Data Vital Signs (Past 12 Hours) Vital Signs Temp Pulse Pulse Resp BP BP Pulse Ox 12/15/22 07:52 36.4 C L 77 18 102/55 L 100 12/15/22 07:31 75 12/15/22 05:19 04/10/23 05:19 36.6 C 79 16 124/53 L 98 12/15/22 03:59 76 12/15/22 04:01 12/15/22 04:00 76 23 134/60 97 12/15/22 03:02 71 20 124/62 99 12/15/22 01:20 77 20 100 12/15/22 01:10 76 26 H 99 12/15/22 01:00 76 20 99 12/15/22 01:00 120/52 L 12/15/22 00:50 76 18 99 12/15/22 00:40 75 17 99 12/15/22 00:30 74 18 100 12/15/22 00:30 119/50 L 12/15/22 00:20 72 19 98 12/15/22 00:10 69 20 99 12/15/22 00:00 67 21 100 12/15/22 00:00 120/51 L 12/14/22 23:50 69 26 H 99 12/14/22 23:40 67 19 100 12/14/22 23:30 67 19 100 12/14/22 23:30 93/41 L 12/14/22 23:20 67 20 100 12/14/22 23:10 69 18 96 12/14/22 23:00 68 19 96 12/14/22 23:00 109/49 L 12/14/22 22:50 68 20 96 12/14/22 22:40 69 19 94 12/14/22 22:30 69 19 94 12/14/22 22:30 92/45 L 12/14/22 22:20 71 20 96 12/14/22 22:10 70 18 95 12/14/22 22:00 72 25 H 100 12/14/22 21:50 72 21 99 12/14/22 21:45 72 19 99 12/14/22 21:45 119/53 L 12/14/22 21:40 72 19 100 12/14/22 21:37 123/58 L 12/14/22 21:37 73 18 99 12/14/22 21:34 73 21 99 Pulse Ox O2 Del Method O2 Del Method O2 Flow Rate O2 Flow Rate 12/15/22 07:52 Nasal Cannula 1 12/15/22 07:31 12/15/22 05:19 Nasal Cannula 1 12/15/22 05:19 Nasal Cannula 1 12/15/22 03:59 12/15/22 04:01 98 Nasal Cannula 2 12/15/22 04:00 Nasal Cannula 2 12/15/22 03:02 Room Air 12/15/22 01:20 12/15/22 01:10 12/15/22 01:00 12/15/22 01:00 12/15/22 00:50 12/15/22 00:40 12/15/22 00:30 12/15/22 00:30 12/15/22 00:20 12/15/22 00:10 12/15/22 00:00 12/15/22 00:00 12/14/22 23:50 12/14/22 23:40 12/14/22 23:30 12/14/22 23:30 12/14/22 23:20 12/14/22 23:10 12/14/22 23:00 12/14/22 23:00 12/14/22 22:50 12/14/22 22:40 12/14/22 22:30 12/14/22 22:30 12/14/22 22:20 12/14/22 22:10 12/14/22 22:00 12/14/22 21:50 12/14/22 21:45 12/14/22 21:45 12/14/22 21:40 12/14/22 21:37 12/14/22 21:37 12/14/22 21:34 Laboratory Results Laboratory Results - last 24 hr 12/14/22 12/14/22 12/14/22 20:15 20:15 Unknown WBC 7.96 RBC 4.65 Hgb 11.8 L Hct 40.1 MCV 86.2 MCH 25.4 MCHC 29.4 L RDW Std Deviation 62.7 H RDW Coeff of Dave 20.0 H Plt Count 160 MPV 11.0 Immature Gran % (Auto) 2.0 Neut % (Auto) 77.9 Lymph % (Auto) 11.6 [place]house % (Auto) 6.8 Eos % (Auto) 1.3 Baso % (Auto) 0.4 Neut # (Auto) 6.21 Lymph # (Auto) 0.92 L [place] # (Auto) 0.54 Eos # (Auto) 0.10 Baso # (Auto) 0.03 Immature Gran # (Auto) 0.16 Tear Drop Cells Sodium 136 Potassium 5.8 H Chloride 99 Carbon Dioxide 24 Anion Gap 13 H BUN 55 H Creatinine 6.86 H* Est Cr Clr Drug Dosing 5.0 Est GFR ( Amer) 6.8 Est GFR (Non-Af Amer) 5.8 BUN/Creatinine Ratio 8.0 L Glucose 92 POC Glucose Lactate Calcium 8.7 Magnesium 1.9 Total Bilirubin 1.3 H AST 15 ALT 6 L Alkaline Phosphatase 152 H Ammonia Total Protein 6.7 Albumin 3.6 Globulin 3.1 Albumin/Globulin Ratio 1.2 TSH 7.126 H Free T4 1.09 SARS-CoV-2, RNA, NAAT 12/15/22 12/15/22 12/15/22 00:15 02:45 02:45 WBC RBC Hgb Hct MCV MCH MCHC RDW Std Deviation RDW Coeff of Dave Plt Count MPV Immature Gran % (Auto) Neut % (Auto) Lymph % (Auto) [place] % (Auto) Eos % (Auto) Baso % (Auto) Neut # (Auto) Lymph # (Auto) [place] # (Auto) Eos # (Auto) Baso # (Auto) Immature Gran # (Auto) Tear Drop Cells Sodium Potassium 5.7 H Chloride Carbon Dioxide Anion Gap BUN Creatinine Est Cr Clr Drug Dosing Est GFR ( Amer) Est GFR (Non-Af Amer) BUN/Creatinine Ratio Glucose POC Glucose 113 H Lactate 1.3 Calcium Magnesium Total Bilirubin AST ALT Alkaline Phosphatase Ammonia Total Protein Albumin Globulin Albumin/Globulin Ratio TSH Free T4 SARS-CoV-2, RNA, NAAT 12/15/22 12/15/22 12/15/22 02:45 04:24 04:24 WBC 5.08 RBC 2.96 L Hgb 7.7 L D Hct 25.5 L MCV 86.1 MCH 26.0 MCHC 30.2 L RDW Std Deviation 60.6 H RDW Coeff of Dave 19.4 H Plt Count 92 L MPV 11.7 Immature Gran % (Auto) 2.6 Neut % (Auto) 89.6 Lymph % (Auto) 3.5 [place] % (Auto) 3.7 Eos % (Auto) 0.2 Baso % (Auto) 0.4 Neut # (Auto) 4.55 Lymph # (Auto) 0.18 L [place] # (Auto) 0.19 Eos # (Auto) 0.01 Baso # (Auto) 0.02 Immature Gran # (Auto) 0.13 Tear Drop Cells 1+ Sodium 135 L Potassium 5.8 H Chloride 99 Carbon Dioxide 24 Anion Gap 12 H BUN 55 H Creatinine 7.04 H* Est Cr Clr Drug Dosing 4.9 Est GFR ( Amer) 6.6 Est GFR (Non-Af Amer) 5.7 BUN/Creatinine Ratio 7.8 L Glucose 169 H POC Glucose Lactate Calcium 7.8 L Magnesium Total Bilirubin AST ALT Alkaline Phosphatase Ammonia 29.0 Total Protein Albumin Globulin Albumin/Globulin Ratio TSH Free T4 SARS-CoV-2, RNA, NAAT 12/15/22 12/15/22 05:07 Unknown WBC RBC Hgb Hct MCV MCH MCHC RDW Std Deviation RDW Coeff of Dave Plt Count MPV Immature Gran % (Auto) Neut % (Auto) Lymph % (Auto) [place] % (Auto) Eos % (Auto) Baso % (Auto) Neut # (Auto) Lymph # (Auto) [place] # (Auto) Eos # (Auto) Baso # (Auto) Immature Gran # (Auto) Tear Drop Cells Sodium Potassium Chloride Carbon Dioxide Anion Gap BUN Creatinine Est Cr Clr Drug Dosing Est GFR ( Amer) Est GFR (Non-Af Amer) BUN/Creatinine Ratio Glucose POC Glucose 182 H Lactate Calcium Magnesium Total Bilirubin AST ALT Alkaline Phosphatase Ammonia Total Protein Albumin Globulin Albumin/Globulin Ratio TSH Free T4 SARS-CoV-2, RNA, NAAT NEGATIVE Diagnostic Findings Head CT 12/14/22 20:05 Exam(s): CT HEAD Without Contrast History: Reason for exam: Seizure. Exam: CT HEAD Without Contrast Technique more: CTDI is 37.75 mGy and DLP is 614.27 mGy-cm. Technique more: Automated exposure control was utilized for the study. A dose lowering technique was utilized adhering to the principles of ALARA. Comparison: CT head 04/30/2015 Findings: Right superior frontal probable 1 cm mass with surrounding extensive vasogenic edema. Metastases is suspected. Recommend follow-up MRI with contrast. Mild effacement of the sulci. Negative for midline shift. Remaining aguilar-white matter differentiation is normal. Paranasal sinuses, mastoid air cells are clear. Trace fluid in the inferior left mastoid air cells. Mild cerumen in left greater than right external auditory canal. Impression: 1. Right superior frontal 1 cm slightly hyperdense mass with extensive surrounding vasogenic edema. Suspect metastases or tumor. Recommend follow-up MRI with contrast. Electronically signed by: Francisco Gallagher MD 12/14/22 22:17 PM Abdomen/Pelvis CT 12/14/22 20:08 Exam(s): CT ABDOMEN + PELVIS With Contrast IV Amt: 86ml History: Reason for exam: Renal failure, abd pain, breast CA. Exam: CT ABDOMEN + PELVIS With Contrast Technique more: CTDI is 37.75 mGy and DLP is 614.27 mGy-cm. Patient received 86ml of IV contrast Technique more: Automated exposure control was utilized for the study. A dose lowering technique was utilized adhering to the principles of ALARA. Comparison: CT abdomen pelvis 05/03/2014 Findings: Lung bases: Partially seen large necrotic mass measuring approximately 7. 5 cm overlying the right hemidiaphragm. Additional masses partially included in the field of view. Basilar increased septal thickening is seen. Recommend correlation with CT chest and/or perhaps PET/CT. Distal heart and esophagus: Cardiomegaly. Left and right coronary calcification. Small hiatal hernia. Liver: Heterogeneous appearance to the liver faint hyperenhancing foci of the left and right lobe. Prominent splenic and portal vein. Gallbladder: Status post cholecystectomy. Negative for ductal dilation. Portal vein is patent. Spleen: Markedly enlarged with multiple splenic low-density foci. Nodular densities in the inferior perisplenic region potentially representing Pancreas: Slightly prominent without any focal finding. Adrenals: Normal Kidneys: Severe atrophy of the sioux kidneys. Retroperitoneum peripheral atherosclerotic calcification of abdominal aorta with moderate to severe stenosis near the aortic bifurcation and proximal left greater than right common iliac artery. Severe stenosis near iliac bifurcation. Bowel: Scattered gas and stool in colon. Nondistended transverse colon with small amount of fat within the mucosal wall suggesting chronic inflammation. Caliber of the small bowel loops is normal. Pelvis: Uterus is unremarkable. Partially distended urinary bladder. Pelvic sidewall, inguinal region are normal. Bones: Mild convex left curvature of the lumbar spine. Probable bone islands in anterior left iliac bone near the superior aspect of the SI joint. Impression: 1. Right lower lobe large necrotic mass partially included in the field of view overlying the right hemidiaphragm measuring at least 7.5 cm. Recommend correlation with CT chest and or perhaps PET/CT. Tomorrow metastases is suspected. 2. Heterogeneous foci in the liver and low density in spleen also suspicious for metastases. 3. Status post cholecystectomy. 4. Severe atrophy of bilateral sioux kidneys. 5. Atherosclerotic disease of abdominal aorta, aortic bifurcation and common iliac arteries. 6. Lumbar spine degenerative changes. Electronically signed by: Francisco Gallagher MD 12/14/22 22:35 PM Chest X-Ray 12/14/22 23:33 XR chest 1V portable HISTORY: 62 years-old Female tachypnea acute shortness of breath COMPARISON: Chest CT 12/03/2022 TECHNIQUE: AP view of the chest FINDINGS: Cardiac silhouette is enlarged. Unchanged bilateral hilar enlargement. Masslike opacity of the medial right lung base/right infrahilar distribution is again noted measuring up to approximately 6.5 cm. Extensive reticular interstitial opacities are again noted throughout the lungs, left greater than right. Degenerative changes of the shoulders and spine. Surgical clips of the left lung base and left axilla with left axillary stent graft. IMPRESSION: 1. No acute processes of the chest. 2. Masslike opacity of the medial right lung base/right infrahilar distribution redemonstrated measuring up to approximately 6.5 cm, better characterized on the chest CT from 12/03/2022. 3. Left greater than right mixed interstitial and alveolar opacities appear unchanged. ACT 112: Negative or not required by law. The above report was generated using voice recognition software. It may contain grammatical, syntax or spelling errors. Electronically signed by: Jesse Plunkett M.D. 12/15/2022 8:00 AM PG Care Time/CCT Total # of Minutes Spent Total Time Spent with Patient: Total time spent is greater than 50% in coordination of care (as documented) at patient's floor/unit and/or counseling patient: [place] [address] IN/OBS CONSULT LVL 3,45M Patient Type New History Expanded Problem Focused Medical Decision Making High Complexity Diagnoses Mass of right lung R91.8 Metastasis to brain C79.31 H/O mastectomy Z90.10 Anemia D64.9 Thrombocytopenia D69.6
[2022-12-15 10:50] LABS: Reticulocyte % 2.7 % (0.5-2.0); Reticulocytes # 0.08 10^6/uL (0.02-0.10)
--- NOTE | 2022-12-15 12:26 | Consultation Report ---
NEPHROLOGY CONSULTATION NOTE REASON FOR CONSULTATION: Dialysis patient admitted with new onset seizure from likely metastatic lesion to the brain. HISTORY OF PRESENT ILLNESS: The patient is a 62-year-old female with end-stage renal disease, on hemodialysis Thursday, Thursday, Thursday as well as end-stage COPD/interstitial lung disease, on home oxygen, history of non-small cell lung cancer, status post radiation as well as history of left breast cancer, status post surgery and chemoradiation, cirrhosis. Also has a history of diffuse pulmonary vasculitis/alveolar hemorrhage in the past. The patient is extremely cachectic and very frail and is always short of breath from her end-stage COPD. However, she is quite compliant with dialysis and never misses dialysis. She presented to the hospital because of seizure episode at home. The patient has also had declining cognitive status for the last few weeks. Seizure episode was witnessed at home and apparently was of generalized tonic-clonic type. She had more seizure in the Emergency Department also. Lorazepam and Keppra was given in the Emergency Department as well as Decadron. CT scan of the brain shows vasogenic edema with right superior frontal hyperdense mass, most likely metastasis. She is getting dialysis as I speak right now. Her blood pressure, so far is within stable range. The AV fistula is working. PAST MEDICAL AND SURGICAL HISTORY: Already reviewed in H and P. Other medical problems include hypertension, chronic diastolic heart failure secondary to nonischemic cardiomyopathy with preserved ejection fraction of 55%, coronary artery disease, peripheral vascular disease, hypothyroidism, cirrhosis, chronic anemia, chronic thrombocytopenia, mastectomy, thyroidectomy, vascular procedures, back surgery. REVIEW OF SYSTEMS: Unable to obtain as the patient is barely keeping her eyes open. ALLERGIES: List was reviewed from H and P and the medicine reconciliation list. MEDICATIONS: Home medication list was also reviewed in detail and is as per the H and P and the reconciliation list. FAMILY HISTORY: Negative for renal disease or dialysis. SOCIAL HISTORY: The patient was a heavy smoker in the past. She is and lives with her spouse. She is disabled for a long time. She uses continuous oxygen at home. PHYSICAL EXAMINATION: GENERAL: A middle-aged white female, who appears chronically ill. She is very cachectic and only weighs 37 kilos. VITAL SIGNS: Blood pressure is 112/53, pulse rate 80, temperature 36.5, 100% on 2 L oxygen. CHEST: Bilateral decreased breath sounds, prolonged expiratory wheezing. Occasional rhonchi bilaterally. CARDIOVASCULAR: S1 and S2, regular. ABDOMEN: Soft, nontender, slightly distended. EXTREMITIES: Show no edema. AV fistula is working fine. LABORATORY TEST: CT head and CT abdomen and pelvis was reviewed. She has a possible metastatic brain lesion as well as a large necrotic mass in the right hemidiaphragm. ASSESSMENT AND PLAN: A 62-year-old female with end-stage renal disease, end- stage lung disease and extremely cachectic and poor functional status. Now admitted with new onset seizure. The working diagnosis at this time is she has metastatic brain lesion causing seizure and also has a large mass in her right hemithorax. I have been consulted for dialysis management. 1. End-stage renal disease. Today is her regular dialysis day and we will do it for 3 hours 30 minutes on a 2k bath and take about 2 to 2.5 kilo off. Her cardiopulmonary reserve is extremely poor and she easily goes into pulmonary edema. 2. Seizure episode. At this point, this is attributed to possible metastatic brain lesion. I was asked whether she can have an MRI with contrast. I would strongly avoid this as there is no real proven antidote for the MRI contrast. We would also be obligated to do daily dialysis. As much as possible, it is better to obtain further information through CT scan with IV contrast that is totally acceptable. I have known this patient for many years now. If she really indeed has metastatic brain lesion, she will be best served with palliative medicine and conservative management. Given her overall disease burden and her extremely frail status, I really do not believe she is a candidate for aggressive treatment for her metastatic cancer. Thank you very much for the consult. Job ID: [id number] [facility]
[2022-12-15] MEDS ORDERED: LORazepam 2 MG/1 ML VIAL IV STA (14:53)
--- NOTE | 2022-12-15 14:55 | Hospitalist Progress Note ---
Date of Service December 15, 2022 Assessment & Plan (1) New onset seizure: Plan: Likely from increased intracranial pressure secondary to tumorigenic edema Likely brain mets secondary to probable recurrent lung malignancy with probable hepatic mets as well, past history radiation EEG has been normal Awaiting MRI of the brain without contrast Appreciate neurology input and recommendation We will continue Keppra to 250 mg Q6 hourly for now for seizure Decadron to decrease the edema Seizure precautions Chronic diastolic heart failure, some congestion on CXR Remains stable Patient family requesting updates from providers. Ms. Yareli Grant (daughter), contact #[phone]. Mr. Danilo Grant (), contact # [phone]. (2) Acute encephalopathy: Plan: Likely secondary to postictal status and is complicated by use of narcotic pain medication and anxiolytics (3) Metastasis to brain: Plan: 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 We will get MRI to evaluate the brain lesion better We cannot do any MRI with contrast due to complications and side effect as per risk modeler Radiation oncology and Oncology consultations Re: Metastatic lung cancer Family open to Palliative care consultation if recommended by above specialties as per discussion. (4) ESRD (end stage renal disease) on dialysis: Plan: Has been on dialysis for a while Has hyperkalemia and also increasing BUN and creatinine Bicarb and IV insulin for hyperkalemia Nephrology consultation Re: Dialysis management Appreciate nephrology input and recommendation (5) COPD (chronic obstructive pulmonary disease): Plan: History of COPD and also non-small cell lung cancer of the lung Also interstitial disease in the lung is complicating COPD and shortness of br eath Has chronic respiratory failure on oxygen (6) Nodular goiter: (7) Mass of right lung: Plan: History of non-small cell cancer of the lung (8) Non-small cell lung cancer (NSCLC): (9) Interstitial lung disease: Plan Other medical conditions are as follows Left breast cancer sp surgery/chemoradiation Hypothyroidism, TSH slightly elevated Chronic anemia, hemoglobin at baseline Past tobacco abuse DVT prophylaxis. SCDs RE brain tumor DNR as per patient's daughter. Admission and Anticipated Discharge Date Admission Date: December 15, 2022 Subjective The patient was seen and examined in medical telemetry unit She has been complaining of generalized discomfort Denies any headache, blurred vision, any numbness and or tingling in the extremities Did not have any more seizure No fever and or chills but remains generally very weak and lethargic Review of Systems Review of Systems: All systems reviewed and are unremarkable except as noted below Neurologic: Alert, awake and oriented x3. Generally weak Physical Exam Physical Exam: Lying in bed with some distress Constitutional: + ill appearing and average body habitus Eyes: PERRL, conjunctivae normal, anicteric sclerae ENMT: external ear and nose normal, oropharynx normal Respiratory: no respiratory distress Auscultation: + diminished lung sounds and + crackles (Minimal crackles bibasally more on the right than the left) Cardiovascular: Rate/Rhythm: regular rate and regular rhythm; not tachycardic Heart Sounds: normal S1 and normal S2; no murmur Extremities: no edema Gastrointestinal (Abdomen): Inspection/Auscultation: normal bowel sounds; abdomen not distended Percussion/Palpation: + abdomen tender and abdomen soft Musculoskeletal: No acute arthritis involving any joint Neurologic: Alert and awake. Pleasantly confused. Generally weak and lethargic. Lymphatic: no cervical or axillary lymphadenopathy Results & Data Results & Data Vital Signs (Past 12 Hours) Vital Signs Temp Pulse Pulse Pulse Resp BP BP 12/15/22 14:14 36.6 C 86 18 140/51 L 12/15/22 13:43 36.5 C 82 129/57 L 12/15/22 13:30 83 99/52 L 12/15/22 13:00 83 109/55 L 12/15/22 12:30 80 104/49 L 12/15/22 12:00 83 127/60 12/15/22 11:30 81 108/53 L 12/15/22 11:00 78 103/50 L 12/15/22 10:30 80 112/53 L 12/15/22 10:06 80 118/54 L 12/15/22 09:53 36.5 C 87 12/15/22 09:11 12/15/22 07:52 36.4 C L 77 18 102/55 L 12/15/22 07:31 75 12/15/22 05:19 12/15/22 05:19 36.6 C 79 16 124/53 L 12/15/22 03:59 76 12/15/22 04:01 12/15/22 04:00 76 23 134/60 12/15/22 03:02 71 20 124/62 Pulse Ox Pulse Ox O2 Del Method O2 Del Method O2 Flow Rate O2 Flow Rate 12/15/22 14:14 100 Nasal Cannula 2 12/15/22 13:43 12/15/22 13:30 12/15/22 13:00 12/15/22 12:30 12/15/22 12:00 12/15/22 11:30 12/15/22 11:00 12/15/22 10:30 12/15/22 10:06 12/15/22 09:53 12/15/22 09:11 Room Air 12/15/22 07:52 100 Nasal Cannula 1 12/15/22 07:31 12/15/22 05:19 Nasal Cannula 1 12/15/22 05:19 98 Nasal Cannula 1 12/15/22 03:59 12/15/22 04:01 98 Nasal Cannula 2 12/15/22 04:00 97 Nasal Cannula 2 12/15/22 03:02 99 Room Air Laboratory Results Short CBC 12/14/22 12/15/22 Range/Units 20:15 04:24 WBC 7.96 5.08 (4.8-10.8) K/ul Hgb 11.8 L 7.7 L D (12.0-16.0) g/dl Hct 40.1 25.5 L (37.0-47.0) % Plt Count 160 92 L (130-400) K/uL BMP 12/14/22 12/15/22 12/15/22 20:15 02:45 04:24 Sodium 136 135 L Potassium 5.8 H 5.7 H 5.8 H Chloride 99 99 Carbon Dioxide 24 24 BUN 55 H 55 H Creatinine 6.86 H* 7.04 H* Glucose 92 169 H Calcium 8.7 7.8 L Liver Function 12/14/22 Range/Units 20:15 Total Bilirubin 1.3 H (0.2-1.0) mg/dl AST 15 (13-39) U/L ALT 6 L (7-52) U/L Alkaline Phosphatase 152 H (34-104) U/L Albumin 3.6 (3.4-5.0) gm/dl Medications Administered Current Inpatient Medications Acetaminophen (Acetaminophen 500 Mg Tab) 500 mg PO Q6H PRN PRN Reason: pain/fever Stop: 01/14/23 03:27 Famotidine (Famotidine 20 Mg Tab) 20 mg PO HS [facility] Stop: 01/14/23 20:59 Fluticasone/Vilanterol (Fluticasone/Vilanterol 200/25mcg 14 Puffs/Inhaler) 1 puffs INH QAM [facility] Stop: 01/14/23 08:59 Last Admin: 12/15/22 07:58 Dose: Not Given Levetiracetam 1,000 mg/ Sodium (Chloride) 110 mls @ 440 mls/hr IV Q24H [facility] Stop: 01/14/23 20:59 Dexamethasone 4 mg/ Syringe 1 mls @ 1 mls/min IV Q6H [facility] Stop: 01/14/23 05:59 Last Admin: 12/15/22 14:35 Dose: 1 mls/min Promethazine HCl 6.25 mg/ (Sodium Chloride) 50.25 mls @ 201 mls/hr IV Q6H PRN PRN Reason: Nausea And Vomiting Stop: 01/14/23 03:27 Levothyroxine Sodium (Levothyroxine Sodium 75 Mcg Tablet) 75 mcg PO DAILYBB [facility] Stop: 01/14/23 06:29 Last Admin: 12/15/22 05:53 Dose: Not Given Lorazepam (Lorazepam 2 Mg/1 Ml Vial) 1 mg IV Q10M PRN PRN Reason: seizures Stop: 01/14/23 03:27 Pantoprazole Sodium (Pantoprazole 40 Mg Tab) 40 mg PO DAILYBB [facility] Stop: 01/14/23 06:29 Last Admin: 12/15/22 05:53 Dose: Not Given Simvastatin (Simvastatin 20 Mg Tab) 20 mg PO HS [facility] Stop: 01/14/23 20:59 Sucralfate (Sucralfate 1 Gm/10 Ml Udc) 1 gm PO ACHS [facility] Stop: 01/14/23 07:29 Last Admin: 12/15/22 11:11 Dose: Not Given (5) COPD (chronic obstructive pulmonary disease) COPD type: COPD with acute exacerbation Qualified Code(s): J44.1 - Chronic obstructive pulmonary disease with (acute) exacerbation (8) Non-small cell lung cancer (NSCLC) Laterality: right Qualified Code(s): C34.91 - Malignant neoplasm of unspecified part of right bronchus or lung
--- NOTE | 2022-12-15 17:26 | Magnetic Resonance Report ---
MRI OF THE BRAIN WITHOUT IV CONTRAST CLINICAL HISTORY: Seizure. COMPARISON STUDY: CT of the brain dated 12/14/2022. TECHNIQUE: MRI of the brain was performed utilizing various T1 and T2-weighted sequences in the axial , sagittal, and coronal planes. IV contrast was not administered for this examination. The examinatio n is significantly degraded by motion artifact. The examination is suboptimal without IV contrast. FINDINGS: Brain parenchyma: There is a large focus of edema centered in the high right frontoparietal region wi th effacement of the overlying cortical sulci in the right lateral ventricle. No midline shift is see n. Question an underlying mass lesion on axial T2 image #18. No hemorrhage is identified. There is no restricted diffusion typical for acute ischemia. There is age-related involutional change noting mil d microangiopathic disease. No extra-axial fluid collection is seen. The cerebellar tonsils are ann-marie l in configuration. Ventricles, sulci, and cisterns: Prominent secondary to involutional change. Pituitary and sella: Unremarkable. Intracranial vasculature: Normal flow voids are maintained at the skull base. Orbits: The bony orbits are grossly intact. Orbital contents are normal in appearance. Sinuses and mastoids: Clear. Calvarium: Unremarkable. Cervical cord: Partially visualized cervical spinal cord is normal in morphology and signal intensity . A calcification is noted at the craniocervical junction. IMPRESSION: 1. The examination is degraded by motion artifact. The examination is also significantly suboptimal w ithout IV contrast. 2. Again seen is a large focus of edema within the high right frontoparietal region. This remains hig hly suspicious for underlying mass lesion or metastatic disease. This cannot be further evaluated wit hout IV contrast. 2. There is effacement of the overlying cortical sulci. No midline shift is seen. 3. No additional similar appearing foci of edema are identified throughout the left hemisphere. 4. There is no hemorrhage or evidence of acute ischemia. ACT 112: Negative or not required by law. Electronically signed by: Fortunato Morris M.D. 12/15/2022 5:24 PM
[2022-12-15] MEDS: FAMOTIDINE 20 MG TAB PO SCH (21:02)
[2022-12-15] MEDS: ACETAMINOPHEN 500 MG TAB PO PRN (21:02)
[2022-12-15] MEDS: levETIRAcetam 1,000 MG in 0.9 % SODIUM CHLORIDE 100 ML IV SCH (21:02)
[2022-12-15] MEDS: SIMVASTATIN 20 MG TAB PO SCH (21:02)
--- NOTE | 2022-12-15 23:39 | Electrocardiogram Report ---
Test Reason : Blood Pressure : / mmHG Vent. Rate : 078 BPM Atrial Rate : 078 BPM P-R Int : 162 ms QRS Dur : 074 ms QT Int : 388 ms P-R-T Axes : 033 020 066 degrees QTc Int : 442 ms Poor data quality, interpretation may be adversely affected Normal sinus rhythm Possible Left atrial enlargement Low voltage QRS Cannot rule out Anterior infarct , age undetermined Abnormal ECG When compared with ECG of 03-DEC-2022 09:12, T wave amplitude has increased in Inferior leads Nonspecific T wave abnormality now evident in Anterior leads Confirmed by Сергей Wilkerson ([id number]) on 12/15/2022 11:39:08 PM Referred By: REFERRED SELF Confirmed By:Сергей Wilkerson
[2022-12-16] MEDS: dexAMETHasone 4 MG in SYRINGE 0 ML IV SCH ×3 (05:06→18:32)
[2022-12-16] MEDS: LEVOTHYROXINE SODIUM 75 MCG TABLET PO SCH (05:06)
[2022-12-16] MEDS: PANTOprazole 40 MG TAB PO SCH (05:06)
[2022-12-16 06:43] LABS: Basophils # (auto) 0.01 K/uL (0-0.2); Basophils % (auto) 0.2 %; Hematocrit (blood only) 24.1 % (37.0-47.0); Hemoglobin 7.2 g/dl (12.0-16.0); Immature Granulocytes # (auto) 0.11 K/uL (0.01-0.20); Immature Granulocytes % (auto) 2.3 %; Lymphocytes # (auto) 0.18 K/uL (1.2-3.4); Lymphocytes % (auto) 3.8 %; Mean Corpuscular Hemoglobin 25.7 pg (25.0-34.0); Mean Corpuscular Hgb Conc 29.9 g/dL (32.0-36.0); Mean Corpuscular Volume 86.1 fL (80.0-100.0); Mean Platelet Volume 9.6 fL (9.4-12.4); Monocytes # (auto) 0.19 K/uL (0.11-0.59); Neutrophils # (auto) 4.31 K/uL (1.40-6.50); Neutrophils % (auto) 89.7 %; Platelet Count 80 K/uL (130-400); RDW Coefficient of Variation 19.2 % (11.5-14.5); RDW Standard Deviation 60.4 fL (36.4-46.3)
[2022-12-16 06:55] LABS: BUN Creatinine Ratio 7.6 (10-20); Calcium 7.8 mg/dl (8.6-10.3); Creatinine Clr Calc Pharmacy 9.2 ml/min; Est GFR (African American) 13.2 ml/min; Est GFR (Non-African American) 11.4 ml/min; Magnesium 1.9 mg/dl (1.7-2.4); Phosphorus 6.3 mg/dl (2.5-4.9); Potassium 5.1 mmol/L (3.5-5.1)
[2022-12-16 07:11] LABS: Hypochromasia Present; Tear Drop Cells 1+
[2022-12-16] MEDS: SUCRALFATE 1 GM/10 ML UDC PO SCH ×4 (08:39→19:42)
[2022-12-16] MEDS: FLUTICASONE/VILANTEROL 200/25MCG 14 PUFFS/INHALER INH SCH (08:39)
[2022-12-16] MEDS: ACETAMINOPHEN 500 MG TAB PO PRN ×2 (08:40→19:42)
--- NOTE | 2022-12-16 09:38 | Nephrology Progress Note ---
Date of Service December 16, 2022 Assessment & Plan Admission and Anticipated Discharge Date Admission Date: December 15, 2022 Subjective S----Had dialysis yesterday. No new issues. MRI was not of great quality. More interactive PHYSICAL EXAMINATION: GENERAL: A middle-aged white female, who appears chronically ill. She is very cachectic and only weighs 37 kilos. CHEST: Bilateral decreased breath sounds, prolonged expiratory wheezing. Occasional rhonchi bilaterally. CARDIOVASCULAR: S1 and S2, regular. ABDOMEN: Soft, nontender, slightly distended. EXTREMITIES: Show no edema. AV fistula is working fine. LABORATORY TEST: CT head and CT abdomen and pelvis was reviewed. She has a possible metastatic brain lesion as well as a large necrotic mass in the right hemidiaphragm. ASSESSMENT AND PLAN: A 62-year-old female with end-stage renal disease, end- stage lung disease and extremely cachectic and poor functional status. Now admitted with new onset seizure. The working diagnosis at this time is she has metastatic brain lesion causing seizure and also has a large mass in her right hemithorax. I have been consulted for dialysis management. 1. End-stage renal disease. tomorrow will do regular dialysis day and we will do it for 3 hours 30 minutes on a 2k bath and take about 2 to 2.5 kilo off. Her cardiopulmonary reserve is extremely poor and she easily goes into pulmonary edema. 2. Seizure episode. At this point, this is attributed to possible metastatic brain lesion.I was asked whether she can have an MRI with contrast. As much as possible try to obtain information through CT with iv contrast. But if not enough can use Second generation MRI contrast to avoid the risk of NSF. We would also be obligated to do daily dialysis after MRI contrast which is not ideal in current situation. I have known this patient for many years now. If she really indeed has metastatic brain lesion, she will be best served with palliative medicine and conservative management. Given her overall disease burden ( ESRD, End stage Lung, Cirrhosis ) and her extremely frail status, I really do not believe she is a candidate for aggressive treatment for her metastatic cancer. . Results & Data Vital Signs (Past 12 Hours) Vital Signs Temp Pulse Pulse Pulse Resp BP Pulse Ox 12/16/22 07:30 36.3 C L 80 16 120/55 L 99 12/16/22 07:18 78 12/16/22 04:05 36.4 C L 81 16 131/66 100 12/16/22 02:52 12/15/22 23:15 36.4 C L 87 16 135/66 99 12/15/22 22:00 85 12/15/22 21:44 Pulse Ox O2 Del Method O2 Del Method O2 Flow Rate O2 Flow Rate 12/16/22 07:30 Nasal Cannula 2 12/16/22 07:18 12/16/22 04:05 Nasal Cannula 2 12/16/22 02:52 100 Nasal Cannula 2 12/15/22 23:15 Nasal Cannula 2 12/15/22 22:00 12/15/22 21:44 Nasal Cannula 2
--- NOTE | 2022-12-16 11:29 | Neurology Progress Note ---
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 The localization is difficult because the patient had head and eyes turning to the left with right arm and leg seizure activity. CT scan shows a right frontal lesion with mass effect which could be metastases. if the seizure origin was coming from the right frontal I would expect the head turned to the left and the left arm and leg have seizure activity. if the seizure activity was coming from the left hemisphere than the right arm and leg would have seizure activity but the head and eyes would turn to the right. A stroke could have the head and eyes turned towards the side of the stroke. She has an acute encephalopathy likely postictal effect plus Ativan affect. She could also be sleepy from cerebral edema creating pressure. Recommendations: 1. If able to take p.o., consider giving levetiracetam 250 mg p.o. twice daily 2. continue Decadron as per Oncology 3. Consider CT scan of the head with contrast. Overall, I spent a total of 35 minutes with this case including review of records, review of MRI films, direct evaluation the patient at bedside, and discussion of the case with the patient and RN at bedside , the patient's and daughter, and Dr. Washburn, including differential diagnosis and treatment options. Admission and Anticipated Discharge Date Admission Date: December 15, 2022 Subjective Patient is much more alert and able to focus and speak. MRI of the brain without contrast ( nephrology insisted that gadolinium not be given to this patient) showed a large right frontal area of swelling with a probable focal lesion within (but we can't know of the exact size without contrast). No other abnormal areas were seen. I reviewed these films , and discussed them with the patient and her family in the room. Blood pressure is 116/58. CBC shows a significant anemia. No further seizures since admission. Interestingly, EEG yesterday, despite her imaging findings showed no focal abnormalities. There were no potentially epileptogenic discharges. Results & Data Vital Signs (Past 12 Hours) Vital Signs Temp Pulse Pulse Pulse Resp BP Pulse Ox 12/16/22 11:06 36.2 C L 82 22 116/58 L 99 12/16/22 10:36 04/11/23 07:30 36.3 C L 80 16 120/55 L 99 12/16/22 07:18 78 12/16/22 04:05 36.4 C L 81 16 131/66 100 12/16/22 02:52 Pulse Ox O2 Del Method O2 Del Method O2 Flow Rate O2 Flow Rate 12/16/22 11:06 Nasal Cannula 2 12/16/22 10:36 Nasal Cannula 2 12/16/22 07:30 Nasal Cannula 2 12/16/22 07:18 12/16/22 04:05 Nasal Cannula 2 12/16/22 02:52 100 Nasal Cannula 2 Exam (Neuro) Physical Exam: She is awake and alert. Speech is without obvious dysarthria. She is sitting up in bed without issue. There is no abnormal involuntary movements. Extraocular eye muscles are intact without nystagmus. There is no facial droop. PG Care Time/CCT Total # of Minutes Spent Total Time Spent with Patient: Total time spent is greater than 50% in coordination of care (as documented) at patient's floor/unit and/or counseling patient: Coding Level of Care Code 32539 SUB INP/OBS CARE 2/35MIN Diagnoses New onset seizure R56.9 Acute encephalopathy G93.40 Metastasis to brain C79.31
[2022-12-16] MEDS: CALCIUM ACETATE 667 MG CAP/TAB PO SCH ×2 (12:08→16:46)
[2022-12-16] MEDS ORDERED: OPTIRAY 350 100ml IV ONE (13:54)
--- NOTE | 2022-12-16 14:18 | Palliative Care Consultation ---
Date of Consultation December 16, 2022 Assessment & Plan (1) Palliative care by specialist: Met with pt family. Provided overview of Palliative Medicine, a subspecialty that provides specialized medical care for people living with a serious illness by offering a focus on quality of life. Palliative Medicine is often conflated with hospice: I advised patient/family that Palliative and hospice can be partners but we are not the same. It is important to understand the difference so that we may be informed, and not afraid. Palliative Medicine works to improve QOL through reduction of symptom burden/more control over their illness, for both the patient and family. Palliative medicine clinicians are board certified, specially-trained and another member of the patient's medical care team. We often provide an extra layer of support because our care is based on the needs of the patient, not the prognosis; as such, it's appropriate at any age/advancing stage of a serious illness and can be provided along with curative treatment. Palliative Medicine clinicians are also trained in advanced communication methodologies, to facilitate complex discussions about advanced illness planning, which are needed to help assure that the treatment choices match the patient's goals, aka delivering Goal Concordant care. Finally, we discussed that hospice is a visiting nurse service that focuses on care delivered at the very end of life for patients with terminal illness, with life expectancy less than 6 month. (2) Advanced care planning/counseling discussion: ACP discussion face to face with pt and family (there were 7 family members present: daughters and grand daughters) at bedside x 30min: We reviewed that all chronic/progressive disease has a declining trajectory over time where facets of patient self-identity and independence are lost. Every acute event leads to a further decline, resulting- many times, in a new baseline. Advised that the greatest priority is to determine what matters most to pt, then family and to develop a plan of care that is aligned with those priorities. Advance illness planning conversations are conducted to review goals and expectations, support shared decision-making, and engage in disease specific advance care planning. This type of advance care planning is sometimes referred to as 'preparedness planning. It is used to review the risks and benefits of offered therapy, elicit and deepen understanding of the underlying illness and therapeutic options, ensure adequate psychosocial support, address existential concerns and coping, and engage in end-of-life planning. Preparedness planning is not meant to replace informed consent discussions. Palliative medicine plays a role in the process of deepening a patients understanding of this specific medical intervention and ensuring this treatment aligns with their goals of care remains a central tenet of the planning conversation. Pt and family perceive that she has not been told about her results: "she doesn't know the cancer is all through her and in her brain and that's what cau sed the seizures." However when further discussing with pt she indicated having heard the seizures might be from a cancer and she can't have chem because she is on HD. She also asks if she had chemo would she lose her hair. She states she was told she might have RT but they wanted a CT head and she is waiting to hear more from Rad Onc later today. Pt is unsure about what the current findings mean as far as prognosis. She tells me she has felt herself growing weaker, more SOB for months. She watched her stomach grow larger and more bloated appearing. She has had worsening abd pain but did not seek further eval of same. She is ECOG PS 4 at present and her helps with nearly all ADLs. She can feed herself but has trouble if cups are too heavy. She has been losing some weight. She spen ds most of the day resting. Despite supplemental O2 she is more SOB even at rest and this worsens with minimal exertion or conversation. Her is not here for this discussion and she would like to revisit a review of test results and what they mean for her moving forward when he returns tomorrow. We agreed she would ask nursing to page me when he arrives as she is unsure of his ETA. Family will discuss a time for them all to be here tonight and inform nursing. (3) Cancer related pain: Begin Oxy 5mg PO q2h prn pain or dyspnea She has used OxyContin in past without issues She does not tolerate MS: "It makes me real mean." Avoid use of morphine in this patient with advanced renal disease/nephropathy. Pt cannot have morphine because of the end stage renal failure - it is recommended that morphine (and codeine) are avoided in renal failure/dialysis patients, because when renal failure patients take morphine, their toxic metabolites, which are renally excreted, accumulate and can quickly cause over-opiation. Over opiation would be easily done with the use of a medication that pt cannot properly excrete. (4) Dyspnea and respiratory abnormalities: See #3 (5) New onset seizure: (6) Metastasis to brain: (7) Non-small cell lung cancer (NSCLC): Laterality: right Qualified Code(s): C34.91 - Malignant neoplasm of unspecified part of right bronchus or lung (8) Cerebral edema: (9) Interstitial lung disease: likely vasculitis in origin, biopsy demonstrated diffuse alveolar damage, ?HD related (10) Acute on chronic respiratory failure with hypoxia and hypercapnia: Plan Cancer pain mgt reccs as noted above. Pt would like meeting tomorrow when arrives. I have updated nursing and primary team, onc, rad onc. Thank you for allowing us to participate in the ongoing care of this patient. Please don't hesitate to call or page with any additional concerns. Dr. Judi Naidu [facility] Director, Palliative Care History of Present Illness Reason for Consultation: Goals of care Requesting Physician: Maddison Attending Physician: Иван Washburn MD History of Present Illness Mary Lou is a 62-year-old female with history of breast cancer in 2000, Stage I. She underwent breast conserving surgery followed by chemotherapy and then radiation. She then was diagnosed with an adenocarcinoma of the lung in 2019, Stage I, for which she had SBRT at [facility].She was discharged from recent admission with plans for immediate follow up with her [facility] team for further evaluation but developed seizures prompting current admission. Family reports seizure at home (increasing weakness at home over the last few days, +generalized tonic-clonic seizures witnessed at home) and then a seizure witnessed in the emergency department. Studies have been done revealing a mass of the right frontal lobe probable brain metastasis.There is surrounding vasogenic edema. She was started on Keppra and dexamethasone, oncology, Rad Onc, Neuro and nephro consults ahve been completed. Oncologic History * The previous treatment for adenocarcinoma of the right middle lobe, Stage IA 3, 05/02/2019-05/13/2019 with definitive SBRT to right middle lobe lung lesion 5000 cGy in 5 fractions. (Dr. Goldstein). * She is s/p treatment for 2000 poorly differentiated infiltrating ductal left breast carcinoma stage [id number] / I. She had breast conservative surgery followed by [facility] chemotherapy for 6 cycles then status post 11/10/2020 completion of radiation therapy 6120 cGy (Dr. [place]) Extensive PMH: COPD-smoking related, ILD ( Her pulmonary biopsies in the past have been consistent with a vasculitic process.), +chronic home O2, HTN, chronic diastolic HFpEF, non-ischemic cardiomyopathy (TTE EF 55-60%, 2019); CAD/PVD; ESRD on HD; LEFT breast cancer s/p surgery/chemoradiation; NSCLC s/p RT; GERD, gastroparesis; hypothyroidism, cirrhosis, chronic anemia (baseline hemoglobin 8- 9), chronic thrombocytopenia, hx pulmonary vasculitis as per records, past tobacco abuse. CT chest showed 1. Interval expansion of the right middle lobe with a lobular low-density focus which measures 6.5 x 4.9 cm. This is surrounded by the hyperdense material within the right middle lobe seen on the prior study. A cystic/heterogeneous mass of the right middle lobe is the diagnosis of exclusion. This could also represent multiple dilated impacted right middle lobe bronchi. Therefore, follow-up bronchoscopy recommended. 2. The irregular mixed density focus within the base of the right lower lobe has also slightly increased in size and now measures 3.9 x 2.1 cm. 3. Diffuse interlobular septal thickening and near diffuse groundglass airspace opacities are again noted. 4. No change in the hyperdense mediastinal and bilateral hilar lymphadenopathy. 5. Stable cardiomegaly. MRI Brain this admission: 1. The examination is degraded by motion artifact. The examination is also significantly suboptimal without IV contrast. 2. Again seen is a large focus of edema within the high right frontoparietal region. This remains highly suspicious for underlying mass lesion or metastatic disease. This cannot be further evaluated without IV contrast. 2. There is effacement of the overlying cortical sulci. No midline shift is seen. 3. No additional similar appearing foci of edema are identified throughout the left hemisphere. 4. There is no hemorrhage or evidence of acute ischemia. From [facility] Rad Onc Note 07/21/2022: RADIATION ONCOLOGY FOLLOW-UP NOTE [facility] Name: Mary Lou Grant : 1960 Mary Lou Grant was seen in follow-up in Radiation Oncology at [facility] on 07/21/2022. REFERRING PHYSICIAN: César Barnes MD DISEASE STATUS: No Evidence of Disease (ELIANA) SITE OF MALIGNANCY: Right Middle Lobe Lung, 2.3cm HISTOPATHOLOGY: NSCLC, Adenocarcinoma, Moderately Differentiated, EGFR/ALK/ROS1 negative, PDL1<1% STAGE: Cancer Staging Primary malignant neoplasm of right middle lobe of lung (HCC) Staging form: Lung, AJCC 8th Edition - Clinical: Stage IA3 (cT1c, cN0, cM0) - Signed by Lilibeth Almazan MD on 04/18/2019 Staging comments: Adenocarcinoma, EGFR/ALK/ROS1 negative, PDL1<1% CURRENT THERAPY: Clinico-radiographic Survaillance PRIOR THERAPY: 05/02/2019-05/13/2019 Definitive SBRT to Right Middle Lobe Lung 5000 cGy in 5 fractions DIAGNOSTIC HISTORY: 04/29/2017 CT thorax, non-contrast,Spiculated nodule in the right lower lobe with central lucencies/cavitation, unchanged. Diagnostic considerations would include infectious etiology. Neoplastic etiology is not excluded. Interlobular septal thickening, ground-glass opacities. Diagnostic considerations would include infection versus inflammation. Pulmonary edema and/or hemorrhage can also have similar appearance. Mediastinal lymphadenopathy; lymph nodes are higher in density. 06/03/2017 PET-CTminimally cavitary, poorly defined, approximately 29.9 x 27.9 mm right lower lobe nodule/lung mass with FDG intensity at 2.96. There are several smaller lung nodules which do not have significant FDG uptake. Electrical And Instrumentation Manager of this is the largest medial, right lower lobe nodule measuring 5.7mm and limited FDG uptake of 1.08 SUV max versus background lung activity at 1.15 SUV max. 08/24/2018 CT thorax, non-contrast,Increase in size of solid right middle lobe nodule now measuring up to 1.9 cm. No significant change of irregular cavitary lesion at the right lower lobe measuring up to 2.8 cm since PET-CT 06/03/2017 09/06/2018 Bronchoscopy, attempted biopsy, negative for malignancy 11/10/2018 CT thorax, non-contrast, notingIrregular nodule tangential to the right major fissure image 120/240 series 2 measuring 2.2 x 1.6 centimeters with air bronchograms and with tenting of the fissure, this previously measured 1.7 x 1.9 centimeters. Irregular cavitary nodule of the right lower lobe measuring 2.4 x 2.3 centimeters, previously measuring 2.8 x 2.7 centimeters. 02/15/2019 CT CAP, indication= lung nodule surveillance and RUQ pain,significant enlargement of the spiculated mass within the posterior aspect the lateral segment of the right middle lobe abutting the major fissure seen on series 4, image 68 and series 601, image 99. The mass now measures 2.3 x 2.1 x 1.7 cm. Spiculated right lower lobe lung mass again demonstrates a small internal focus of cavitation versus bronchiectasis. The adjacent inflammation appears more solid than on the prior studies. This remains concerning for a primary lung neoplasm as well. This lesion measures 2.5 x 2.3 x 1.7 cm. 03/02/2019 PET-CT,Metabolically active right middle lobe (2.3 cm) SUV max 10.4and right lower lobe (2.6 cm) SUV max 4.7 nodules suspicious for malignancy. No metabolically active lymph nodes or extrathoracic metastases. 03/23/2019 Bronchoscopy and biopsy, diagnosing NSCLC, adenocarcinoma in RML, the RLL was also sampled resultsLimited sample of bronchial wall with hemosiderosis, insufficient for diagnosis. 04/08/2019 CT head with and without contrast, notingNo acute intracranial abnormality is identified. Mild nonspecific periventricular hypodensity, most commonly associated with chronic small vessel ischemic changes. Intracranial atherosclerotic disease. Moderate opacification of the left sphenoid sinus, worrisome for sinusitis. Post Treatment Response/Survaillance Imaging and Diagnostic Workup: 07/13/2019 CT thorax without contrast, Grossly unchanged right middle lobe and right lower lobe spiculated masses.Postobstructive pneumonia/atelectasis seen in the right lower lobe. Chronic diffuse interstitial lung disease. Stable / chronic hypodense splenic lesions. 09/05/2019 CT thorax without contrast, New lobar atelectasis lateral segment right middle lobe, could be obscuring previous mass Otherwise no significant changes, including stable spiculated 2.5 cm mass right lower lobe.No pleural effusions. No adenopathy. 09/21/2019 PET-CT, Metabolically-active right middle lobe mass, consistent with biopsy-proven malignancy. Endoluminal opacification of the mass with abrupt bronchial cut off and complete collapse of the middle lobe. Response to therapy: Interval calcification, decrease in size and metabolic activity of right lower lobe mass.Stable splenomegaly with innumerable hypodense nodules. 10/05/2019 Bronchoscopy and biopsy, A completely obstructing airway abnormality was found in the lateral segment of the right middle lobe (B4) and inthe medial segment of the right middle lobe (B5). Obstruction appeared to be of white possibly granulation tissue and there were mucoidsecretions in the RML as well. After biopsies and an attempt at openingthe airway, we were unable to traverse the obstruction in either the lateral or medial segments, although more definitive subsegments were visualized of the RML, pathology from biopsy chronic inflammation, brushings and lavage atypical cells. 01/09/2020 CT thorax, Treated lung cancer in the right middle lobe shows no progression from 09/21/2019, probably decreased in size from the prior exam. Continue follow-up as per the clinical protocol. The right lower lobe mass lesion appears relatively stable over the most recent studies and is compatible with residua of the right lower lobe mass seen in this location on 06/21/2016. Correlation with remote medical records would be helpful to explain the previ ous treatment of this lesion. Calcifications in the lungs likely combination of dystrophic calcification and "metastatic" pulmonary calcification in the context of end-stage renal disease. Chronic pulmonary interstitial edema, similar to prior studies. Mild COPD. Cardiomegaly. Heavy atherosclerotic disease. Splenomegaly with multiple nodular hypoattenuating lesions of the spleen of unclear etiology however with long-term stability. 07/11/2020 CT thorax, Treated lung cancer in the right middle lobe shows no progression from most recent exams, relatively decreased from pretreatment imaging. Additional calcified masslike structure in the right lower lobe shows long-term stability, likely consequence of old, focal lung injury and metastatic pulmonary calcification. Pulmonary interstitial edema relatively improved. Residual interlobular septal thickening may reflect lymphedema rather than cardiogenic edema. New small volume ascites. 01/09/2021 CT thorax, Stable treated lung cancer in the right middle lobe showing no progression or change from the most recent exam. Stable calcified mass right lower lobe. Pulmonary calcinosis sequela. Renal atrophy. 07/17/2021 CT thorax, Stable hypodense lesion in a chronically collapsed and calcified right middle lobe, likely representing treated tumor. Stable calcified spiculated mass in the right lower lobe. Stable size of multiple additional nod ules and subpleural calcified consolidations in both lungs. OTHER ONCOLOGIC DIAGNOSIS: 2000 History of left sided breast cancer, s/p lumpectomy chemotherapy and radiation, completing from 09/24/2000-11/10/2000, delivered 4680cGy in 180cGy/fractions to Left whole breast followed by 1440cGy lumpectomy boost INTERVAL HISTORY: Patient returns for follow up. Doing well no new symptoms Jesus/sob at baseline +chronic cough IMAGIN07/21/2022 CT thorax, radiology report not available at clinic visit, scan reviewed and compared to prior imaging and in context of radiation treatment plan Stable post treatment changes Stable size of RLL mass being followed ASSESSMENT: 62F diagnosed with Right Middle Lobe Lung, 2.3cm, NSCLC, Adenocarcinoma, Moderately Differentiated, EGFR/ALK/ROS1 negative, PDL1<1%, Stage IA3 (cT1c, cN0, cM0), Adenocarcinoma, EGFR/ALK/ROS1 negative, PDL1<1%, s/p 05/02/2019- 05/13/2019 Definitive SBRT to Right Middle Lobe Lung 5000 cGy in 5 fractions, with equivocal imaging findings, concern for recurrence on PET, s/p bronch and biopsy noting chronic inflammation on biopsy, lavage and brushings noting atypical cells Stability in treated lesion and evolution of post radiation changes Continue surveillance, move to q12 months Health Maintenance and Age Appropriate Screening per PCP PLAN: 1. Return in [address] thorax Allergies Allergy/AdvReac Type Severity Reaction Status Date / Time aspirin Allergy Severe EDEMA Verified 12/14/22 22:48 FACE/LIPS/TONGUE dipyridamole Allergy Severe "Bad Verified 12/14/22 22:48 reaction" per records naproxen Allergy Severe EDEMA Verified 12/14/22 22:48 FACE/LIPS/TONGUE atropine Allergy Intermediate Dyspnea/WHE Verified 12/14/22 22:48 EZING vancomycin Allergy Intermediate Rash/tommy Verified 12/14/22 22:48 syndrome maprotiline Allergy Unknown Unknown Verified 12/14/22 22:48 latex Allergy Unknown Verified 12/14/22 22:49 valacyclovir [From Valtrex] AdvReac Severe "FREAKED Verified 12/14/22 22:48 OUT HAD TO BE HOSPITALIZED". linezolid AdvReac Intermediate Thrombocyto Verified 12/14/22 22:48 penia salicylates AdvReac Intermediate Gastrointestinal Verified 12/14/22 22:48 Upset Home Medications Medication Instructions Recorded Confirmed Type albuterol sulfate 2.5 mg/3 mL 2.5 mg inhalation DIRECTED PRN 11/02/18 12/14/22 History (0.083 %) solution for nebulization Shortness Of Breath Or Wheezing hydralazine 25 mg tablet 25 mg PO TID 11/02/18 12/14/22 History levothyroxine 75 mcg tablet 75 mcg PO QAM 11/02/18 12/14/22 History simvastatin 20 mg tablet 20 mg PO HS 11/02/18 12/14/22 History amlodipine 10 mg tablet 10 mg PO QAM 07/14/19 12/14/22 History pantoprazole 40 mg tablet,delayed 40 mg PO DAILYBB 07/14/19 12/14/22 History release metoprolol succinate 25 mg 25 mg PO QAM 11/19/19 12/14/22 History tablet,extended release 24 hr (Toprol XL) calcium acetate(phosphat bind) 667 667 mg PO TIDM 05/20/21 12/14/22 History mg capsule famotidine 20 mg tablet 20 mg PO HS 10/18/21 12/14/22 History aprepitant 80 mg capsule (Emend) 80 mg PO QA 12/03/22 12/14/22 History benzonatate 200 mg capsule 200 mg PO TID PRN Cough 12/03/22 12/14/22 History fluticasone furoate 200 1 inh inhalation QA 12/03/22 12/14/22 History mcg-vilanterol 25 mcg/dose inhalation powder (Breo Ellipta) sucralfate 100 mg/mL oral 10 ml PO QID #420 mL 12/03/22 12/14/22 Rx suspension (Carafate) Patient History Medical History (Updated 12/16/22 @ 15:55 by Judi Naidu, LESTER) Acute on chronic respiratory failure with hypoxia and hypercapnia Advanced care planning/counseling discussion Anemia of chronic renal failure AV fistula LUE Breast cancer DX 2000 s/p chemo/xrt CAD (coronary artery disease) Cancer related pain Chronic diarrhea Chronic hypoxemic respiratory failure Cirrhosis per records COPD (chronic obstructive pulmonary disease) Discussion about advance care planning held with family member Dyspnea and respiratory abnormalities Esophageal polyp ESRD (end stage renal disease) dialysis Thursday//Thursday ([place]) THIS WEEK D/T UPCOMING PROCEDURE ON 08/21/22 DIALYSIS , THU AND SAT GERD (gastroesophageal reflux disease) History of abdominal paracentesis Hyperlipidemia Hypertension Hypothyroidism Interstitial lung disease Multiple pulmonary nodules determined by computed tomography of lung Nausea Non-ischemic cardiomyopathy Non-small cell lung cancer (NSCLC) dx 04/2019; s/p XRT; RML, RLL. Follows with [facility]/Onc, R-Onc On home oxygen therapy 2L O2 HS Palliative care by specialist [place] historian Splenomegaly, not elsewhere classified w/ multiple hypodense masses stable on fall 2019 imaging and present since at least 2005 Thrombocytopenia chronic, 2/2 cirrhosis. Surgical History H/O partial thyroidectomy GOITER History of bronchoscopy History of cardiac cath 2013- NO STENTS History of colonoscopy History of esophagogastroduodenoscopy (EGD) History of tooth extraction Hx of lumpectomy LEFT S/P arteriovenous (AV) fistula creation left arm > upper S/P laparoscopic cholecystectomy 06/2020 [facility] Family History Other Family history non-contributory No family history of adverse response to anesthesia Social History Smoking Status: Unknown if ever smoked Tobacco Type: Cigarettes Preferred Language: Hungarian Communication Ability: Effective Systems Testing Laboratory Technician Required: No Beliefs That Will Affect Care: None marital status: Current Living Situation: Spouse and Family current occupational status: disabled How many Children do You have: 2 Other Information That Helps Us Care for You: No Feels Safe at Home: Yes Assistive Devices: Oxygen - Continuous Review of Systems Review of Systems: All systems reviewed & are unremarkable except as noted in Subjective Gastrointestinal: c/o abd pain Physical Exam Constitutional: + ill appearing, + cachectic and + frail appearing Eyes: PERRL, conjunctivae normal, anicteric sclerae ENMT: Mouth: + edentulous and + poor dentition Neck: trachea midline, no thyromegaly Respiratory: + respiratory distress (mild at rest, slightly increased with prolonged conversation) and + uses accessory muscles Auscultation: + diminished lung sounds (I< E,), + crackles and + rales +pursed lip breathing Cardiovascular: Rate/Rhythm: + tachycardic and + irregularly irregular S1, loud S2 No gross JVD Gastrointestinal (Abdomen): slightly distended, ++TTP, generalized discomfort Musculoskeletal: generalized weakness Skin: +pallor, cool to touch Neurologic: AAOx3 Results & Data Vital Signs (Past 12 Hours) Vital Signs Temp Pulse Pulse Pulse Resp BP Pulse Ox 12/16/22 11:06 36.2 C L 82 22 116/58 L 99 12/16/22 10:36 12/16/22 07:30 36.3 C L 80 16 120/55 L 99 12/16/22 07:18 78 12/16/22 04:05 36.4 C L 81 16 131/66 100 12/16/22 02:52 Pulse Ox O2 Del Method O2 Del Method O2 Flow Rate O2 Flow Rate 12/16/22 11:06 Nasal Cannula 2 12/16/22 10:36 Nasal Cannula 2 12/16/22 07:30 Nasal Cannula 2 12/16/22 07:18 12/16/22 04:05 Nasal Cannula 2 12/16/22 02:52 100 Nasal Cannula 2 Laboratory Results data reviewed, see HPI Diagnostic Findings data reviewed: [facility] via EMR Link; see HPI PG Care Time/CCT Total # of Minutes Spent Total Time Spent: 115 Total Time Spent with Patient: Total time spent is greater than 50% in coordination of care (as documented) at patient's floor/unit and/or counseling patient: I spent 115 minutes overall addressing this case: 25 in medical data review/discussion with referring provider(s) and/or preparation for the visit - extensive review of [facility] and OSH records, imaging, pathology 25 in direct interaction with the patient 30 Advance Care Planning/Goals of Care discussions as detailed above in note (must be >16min) 15 in subsequent review and synthesis of assessment and plan 20 in communicating with other providers regarding the patient's case: primary team, oncology, rad onc, nursing Prolonged Care Time Prolonged Care Time: Yes Advanced Care Planning 93068 Advanced Care Planning 30 [place] [address] IN/OBS CONSULT LVL 5,80M Patient Type New History Comprehensive Exam Comprehensive Medical Decision Making High Complexity Diagnoses Palliative care by specialist Z51.5 Advanced care planning/counseling discussion Z71.89 Cancer related pain G89.3 Dyspnea and respiratory abnormalities R06.00; R06.89 New onset seizure R56.9 Metastasis to brain C79.31 Non-small cell lung cancer (NSCLC) C34.91 Laterality: right Cerebral edema G93.6 Interstitial lung disease J84.9 Acute on chronic respiratory failure with hypoxia and hypercapnia J96.21; J96.22 Additional Codes Advanced Care Planning - [id number] Advanced Care Planning 30 Min: [id number] Advanced Care Planning 30 Min ([id number]) Prolonged Care Time - Prolonged Care Time: Yes ([id number])
[2022-12-16] MEDS ORDERED: oxyCODONE HCL IR 5 MG TAB (IMMEDIATE RELEASE) PO STA (15:06)
--- NOTE | 2022-12-16 15:15 | CT Scan Report ---
CT SCAN OF THE BRAIN WITH IV CONTRAST CLINICAL HISTORY: Intracranial mass. COMPARISON STUDY: Unenhanced CT of the brain dated 12/24/2022. MRI of the brain dated 12/15/2022. TECHNIQUE: Axial CT scan of the brain is performed from the vertex to the skull base following the IV administration of 94 cc of Optiray 350. A dose lowering technique was utilized adhering to the [facility] of [place]. IV contrast was administered without complication. CT DOSE: 638.56 mGycm FINDINGS: Brain parenchyma: Again seen is significant edema within the high right frontoparietal region. A 1.5 cm enhancing mass lesion is seen in the right frontal lobe on axial image #24. There is effacement of the overlying cortical sulci and the right lateral ventricle. There is no significant right to left midline shift. No additional enhancing lesion is identified by CT. Minimal microangiopathic change is observed. There is evidence of hemorrhage on this contrast-enhanced examination. There is no evidenc e the acute territorial ischemia by CT criteria. No extra-axial fluid collection is seen. Ventricles, sulci, cisterns: Normal configuration. See above. Intracranial vasculature: There is atherosclerotic calcification of the cavernous carotid arteries. Calvarium: Unremarkable. Sinuses and mastoids: The visualized paranasal sinuses are clear. There are trace mastoid effusions. Orbits: The bony orbits are grossly intact. IMPRESSION: 1. There is a 1.5 cm enhancing lesion seen in the high right frontal lobe with significant surroundin g edema as above. This could represent a primary glial neoplasm versus metastatic disease. 2. The degree of edema is similar to yesterday. 3. No additional enhancing lesion is identified by CT. 4. There is no hemorrhage or evidence of acute territorial ischemia by CT criteria. ACT 112: Negative or not required by law. Electronically signed by: Fortunato Morris M.D. 12/16/2022 3:13 PM
--- NOTE | 2022-12-16 17:09 | Hospitalist Progress Note ---
Date of Service December 16, 2022 Assessment & Plan (1) New onset seizure: Plan: Likely from increased intracranial pressure secondary to tumorigenic edema Likely brain mets secondary to probable recurrent lung malignancy with probable hepatic mets as well, past history radiation EEG has been normal Awaiting MRI of the brain without contrast Appreciate neurology input and recommendation We will continue Keppra to 250 mg Q6 hourly for now for seizure Decadron to decrease the edema Seizure precautions MRI of the head without contrast and CT of the head with contrast confirmed 1.5 cm enhancing lesion seen in the right high frontal lobe with significant surrounding edema She remains stable without any more episodes of seizure Chronic diastolic heart failure, some congestion on CXR Remains stable Denies any cardiac symptoms Patient family requesting updates from providers. Ms. Yareli Grant (daughter), contact #[phone]. Mr. Danilo Grant (), contact # [phone]. 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 We will get MRI to evaluate the brain lesion better We cannot do any MRI with contrast due to complications and side effect as per demolitionist Radiation oncology and Oncology consultations Re: Metastatic lung cancer Appreciate palliative care input and recommendation Repeat CT head with contrast confirmed metastatic disease with vasogenic edema in the brain as above Appreciate radiation oncology input (4) ESRD (end stage renal disease) on dialysis: Plan: Has been on dialysis for a while Has hyperkalemia and also increasing BUN and creatinine Bicarb and IV insulin for hyperkalemia Nephrology consultation Re: Dialysis management Appreciate nephrology input and recommendation We will continue dialysis (5) COPD (chronic obstructive pulmonary disease): Plan: History of COPD and also non-small cell lung cancer of the lung Also interstitial disease in the lung is complicating COPD and shortness of breath Has chronic respiratory failure on oxygen (6) Nodular goiter: (7) Mass of right lung: Plan: History of non-small cell cancer of the lung (8) Non-small cell lung cancer (NSCLC): Plan: Right middle lobe bronchial biopsy confirmed adenocarcinoma in 20 17 (9) Interstitial lung disease: Plan Other medical conditions are as follows Left breast cancer sp surgery/chemoradiation Hypothyroidism, TSH slightly elevated Chronic anemia, hemoglobin at baseline Past tobacco abuse DVT prophylaxis. SCDs RE brain tumor DNR as per patient's daughter. Discussed with the family members Prognosis remains guarded Admission and Anticipated Discharge Date Admission Date: December 15, 2022 Subjective The patient was seen and examined in medical telemetry unit She has been complaining of generalized discomfort Denies any headache, blurred vision, any numbness and or tingling in the extremities Did not have any more seizure No fever and or chills but remains generally very weak and lethargic 12/16/2022 The patient was seen and examined in medical telemetry unit She remains very weak and lethargic and her condition has not changed since admission Did not have any more seizure since admission Denies any shortness of breath, pain, nausea and or vomiting Review of Systems Review of Systems: All systems reviewed and are unremarkable except as noted below Neurologic: Alert, awake and oriented x3. Generally weak Physical Exam Physical Exam: Lying in bed with some distress due to weakness and minimal shortness of breath Constitutional: + ill appearing and average body habitus Eyes: PERRL, conjunctivae normal, anicteric sclerae ENMT: external ear and nose normal, oropharynx normal Respiratory: no respiratory distress Auscultation: + diminished lung sounds and + crackles (Minimal crackles bibasally more on the right than the left) Cardiovascular: Rate/Rhythm: regular rate and regular rhythm; not tachycardic Heart Sounds: normal S1 and normal S2; no murmur Extremities: no edema Gastrointestinal (Abdomen): Inspection/Auscultation: normal bowel sounds; abdomen not distended Percussion/Palpation: + abdomen tender and abdomen soft Musculoskeletal: No acute arthritis involving any joint Neurologic: Alert and awake. Generally very weak and lethargic Lymphatic: no cervical or axillary lymphadenopathy Results & Data Results & Data Vital Signs (Past 12 Hours) Vital Signs Temp Pulse Pulse Pulse Resp BP Pulse Ox 12/16/22 15:21 36.7 C 85 20 140/56 L 99 12/16/22 11:06 36.2 C L 82 22 116/58 L 99 12/16/22 10:36 12/16/22 07:30 36.3 C L 80 16 120/55 L 99 12/16/22 07:18 78 O2 Del Method O2 Flow Rate 12/16/22 15:21 Nasal Cannula 2 12/16/22 11:06 Nasal Cannula 2 12/16/22 10:36 Nasal Cannula 2 12/16/22 07:30 Nasal Cannula 2 12/16/22 07:18 Laboratory Results Short CBC 12/16/22 Range/Units 06:08 WBC 4.80 (4.8-10.8) K/ul Hgb 7.2 L (12.0-16.0) g/dl Hct 24.1 L (37.0-47.0) % Plt Count 80 L (130-400) K/uL BMP 12/16/22 06:08 Sodium 140 Potassium 5.1 Chloride 104 Carbon Dioxide 26 BUN 30 H D Creatinine 3.94 H D Glucose 178 H Calcium 7.8 L Medications Administered Current Inpatient Medications Acetaminophen (Acetaminophen 500 Mg Tab) 500 mg PO Q6H PRN PRN Reason: pain/fever Stop: 01/14/23 03:27 Last Admin: 12/16/22 08:40 Dose: 500 mg Calcium Acetate (Calcium Acetate 667 Mg Cap/Tab) 667 mg PO TIDM KAVON Stop: 01/15/23 11:59 Last Admin: 12/16/22 16:46 Dose: 667 mg Epoetin Rc (Epoetin Rc 20,000 Units/Ml Vial) 20,000 units IV ONE ONE Stop: 12/17/22 07:01 Famotidine (Famotidine 20 Mg Tab) 20 mg PO HS KAVON Stop: 01/14/23 20:59 Last Admin: 12/15/22 21:02 Dose: 20 mg Fluticasone/Vilanterol (Fluticasone/Vilanterol 200/25mcg 14 Puffs/Inhaler) 1 puffs INH QAM KAVON Stop: 01/14/23 08:59 Last Admin: 12/16/22 08:39 Dose: 1 puffs Levetiracetam 1,000 mg/ Sodium (Chloride) 110 mls @ 440 mls/hr IV Q24H KAVON Stop: 01/14/23 20:59 Last Infusion: 12/15/22 21:19 Dose: Infused Dexamethasone 4 mg/ Syringe 1 mls @ 1 mls/min IV Q6H KAVON Stop: 01/14/23 05:59 Last Admin: 12/16/22 11:47 Dose: 1 mls/min Promethazine HCl 6.25 mg/ (Sodium Chloride) 50.25 mls @ 201 mls/hr IV Q6H PRN PRN Reason: Nausea And Vomiting Stop: 01/14/23 03:27 Sodium Chloride (Nss 1000ml) 1,000 mls @ 0 mls/hr IV .Q0M PRN PRN Reason: For Hemodialysis Use ONLY Stop: 12/17/22 12:59 Levothyroxine Sodium (Levothyroxine Sodium 75 Mcg Tablet) 75 mcg PO DAILYBB [facility] Stop: 01/14/23 06:29 Last Admin: 12/16/22 05:06 Dose: 75 mcg Lorazepam (Lorazepam 2 Mg/1 Ml Vial) 1 mg IV Q10M PRN PRN Reason: seizures Stop: 01/14/23 03:27 Oxycodone HCl (Oxycodone Hcl Ir 5 Mg Tab (Immediate Release)) 5 mg PO Q2H PRN PRN Reason: Pain or dyspnea Stop: 12/30/22 16:59 Pantoprazole Sodium (Pantoprazole 40 Mg Tab) 40 mg PO DAILYBB [facility] Stop: 01/14/23 06:29 Last Admin: 12/16/22 05:06 Dose: 40 mg Simvastatin (Simvastatin 20 Mg Tab) 20 mg PO HS KAVON Stop: 01/14/23 20:59 Last Admin: 12/15/22 21:02 Dose: 20 mg Sucralfate (Sucralfate 1 Gm/10 Ml Udc) 1 gm PO ACHS KAVON Stop: 01/14/23 07:29 Last Admin: 12/16/22 16:46 Dose: 1 gm (5) COPD (chronic obstructive pulmonary disease) COPD type: COPD with acute exacerbation Qualified Code(s): J44.1 - Chronic obstructive pulmonary disease with (acute) exacerbation (8) Non-small cell lung cancer (NSCLC) Laterality: right Qualified Code(s): C34.91 - Malignant neoplasm of unspecified part of right bronchus or lung
[2022-12-16] MEDS: levETIRAcetam 1,000 MG in 0.9 % SODIUM CHLORIDE 100 ML IV SCH (19:41)
[2022-12-16] MEDS: FAMOTIDINE 20 MG TAB PO SCH (19:42)
[2022-12-16] MEDS: SIMVASTATIN 20 MG TAB PO SCH (19:42)
[2022-12-17] MEDS: dexAMETHasone 4 MG in SYRINGE 0 ML IV SCH ×4 (00:07→17:15)
[2022-12-17] MEDS: PANTOprazole 40 MG TAB PO SCH (05:47)
[2022-12-17] MEDS: LEVOTHYROXINE SODIUM 75 MCG TABLET PO SCH (05:47)
--- NOTE | 2022-12-17 05:49 | Hospitalist Progress Note ---
Date of Service December 16, 2022 Assessment & Plan (1) Non-small cell lung cancer (NSCLC): Plan: On further review, the primary lung lesion may actually be in the same vicinity as her previously irradiated lesion and thus represent local relapse. There is a secondary lesion removed from that somewhat. CT scans do suggest pathologic adenopathy in the mediastinum, though the calcification could reflect nonmalignant issues there. Certainly would need tissue confirmation but overall there continues to be a very strong suggestions of a lung cancer, probably recurrence of her non-small cell lung cancer, associated with potential metastasis to nodes, brain, and poss ibly elsewhere On steroids there has been significant apparent improvement in her mental status creating cautious optimism that the radiation to the lesion in the brain could help to stabilize her from a neurological standpoint. If so, would not completely exclude further work-up to define her disease at least setting the stage for cautious discussions of the pros and cons of treatment beyond pa lliative care thereafter. I spoke quite frankly with the patient, her 2 daughters, friend, and sister who were with her. Outlined that she seems to have stage IV disease though whether this is oligometastatic to the brain or includes metastases to the liver and/or spleen is unclear from the somewhat mixed interpretations of her successive abdominal CTs. Emphasized that we probably cannot offer curative therapy, that she is not a good surgical candidate, and that her significant comorbidities particularly with respect to renal dysfunction, cirrhosis, pancytopenia, and COPD could make her much more prone to morbidity and even mortality related to any aggressive chemotherapy program. Noted that there might be non chemotherapy options identified by NGS testing of her tissue and that indeed we are not yet sure of her histology so when available that may take us a different directions in terms of prognostic expectation. However, I overall repetitively emphasized that it would be important to understand the potential risk to quality and even quantity of life with aggressive treatment in the setting where the "big picture" may be difficult to change given the combination of what looks like an aggressive relapse set against performance status compromise. Patient is nevertheless desirous of at least going forward with further explorations and at this point while she is somewhat simplistic in her understanding of her medical situation, she seems to have at least basically intact medical decision making. 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 Under standing that we cannot completely exclude a primary BLUEPRINTING MACHINE OPERATOR process, do not think she would be a good neurosurgical candidate and statistically/epidemiological, radiologically there is a strong suggestion of a primary lung malignancy and thus we should be able to make tissue diagnosis elsewhere. Empiric radiation with an ongoing steroid taper and anticonvulsant coverage woulod seem the most immediate priority. If/as she shows continued stability particularly as we taper her off of steroids, could follow that up with a PET scan and possibly marrow aspiration and biopsy as separately discussed. The PET scan could highlight whether or not there is more extensive involvement in the abdomen, the degree to which there is activity in the mediastinal nodes, and certainly would be expected to confirm the likely malignant nature of at least 1 if not both of her lung lesions. This could in turn help define optimal approach for a tissue diagnosis which would be pivotal in overall prognostication and any discussion of treatment choices. That tissue could be processed for PDL1 and other relevant genomic alteration expression that could open the door for some discussions of perhaps less toxic a nd sometimes significantly effective immune therapy or targeted options. Nevertheless, I have tried to temper any optimism that that engenders with the admonition that it as if not more important to be thinking about quality of life in the near term as she makes decisions as to how aggressively to pursue diagnostic and ultimately potential therapeutic intervention. Would suggest that a rehab stay could also be worthwhile to try to optimize her basic performance status issues as we make those decisions about next steps in care (2) Pancytopenia: Plan: Hypoproductive normocytic anemia in conjunction with moderate thrombocytopenia. The former may in large part reflect renal dysfunction but could certainly mask another primary hematologic disorder. The latter may be a consequence of sequestration. Nutritional studies are intact though low normal B12 level will be followed up with a methylmalonic acid to make sure it is functionally adequate. If anything, she is iron overloaded with markedly elevated ferritin but good range percent saturation. If we were to consider pursuing beyond the simple palliative combination of radiation to the brain and otherwise symptomatic management, may want to consider marrow aspiration and biopsy to assure that there are no other issues within the marrow that lie behind the dual cytopenias. No immediate need of transfusion or other urgent intervention, this potentially could be pursued as an outpatient Plan Would suggest that we proceed with empiric radiation to the BLUEPRINTING MACHINE OPERATOR lesion followed by dexamethasone taper Would aim towards discharge to rehab for assessment of how optimally we can restore performance status If she affirms her desire to continue at least for now with further diagnostic work-up setting the stage for possible treatment discussions, would consider outpatient PET scan and bone marrow aspiration/biopsy to better define the extent of her disease and as well what lies behind her dual cytopenias With those results we could more specifically discuss how to approach a potential tissue biopsy if that remains relevant to decision making. With tissue biopsy, NGS studies, better definition of her hematologic status, and assessment of the degree to which she can improve her functionality we could potentially discuss specific treatment interventions particularly with respect to any noncytotoxic interventions indicated by the NGS studies. However, we will continue to work with the patient and her family emphasizing that there may be advantages to a more simplistic/conservative approach of symptom oriented therapy only in terms of preserving quality of life now for what is not likely to be an easily addressed malignancy particularly against the background of essentially multiorgan dysfunction Admission and Anticipated Discharge Date Admission Date: December 15, 2022 Subjective Sitting in bed, alert, seems in no acute distress. Physical Exam Physical Exam: Vital signs stable, moves all 4 extremities without difficulty, no meningismus, no respiratory distress, speech is fluent and appropriate though perhaps somewhat simplistic in her interpretations and responses Results & Data Results & Data Vital Signs (Past 12 Hours) Vital Signs Temp Pulse Pulse Resp BP Pulse Ox Pulse Ox 12/17/22 03:30 97 12/17/22 03:26 36.7 C 80 20 124/60 90 12/17/22 03:18 97 12/16/22 23:51 36.7 C 79 20 121/46 L 92 12/16/22 22:00 88 12/16/22 21:03 12/16/22 19:52 36.6 C 90 20 158/48 H 99 O2 Del Method O2 Del Method O2 Flow Rate O2 Flow Rate 12/17/22 03:30 Nasal Cannula 2 12/17/22 03:26 Nasal Cannula 2 12/17/22 03:18 Nasal Cannula 2 12/16/22 23:51 Nasal Cannula 12/16/22 22:00 12/16/22 21:03 Nasal Cannula 2 12/16/22 19:52 Nasal Cannula 2 PG Care Time/CCT Total # of Minutes Spent Total Time Spent with Patient: Total time spent is greater than 50% in coordination of care (as documented) at patient's floor/unit and/or counseling patient: Coding [place] [address] SUB INP/OBS CARE 2/35MIN Patient Type Established History Problem Focused Exam Problem Focused Medical Decision Making High Complexity Diagnoses Non-small cell lung cancer (NSCLC) C34.91 Laterality: right Pancytopenia D61.818 (1) Non-small cell lung cancer (NSCLC) Laterality: right Qualified Code(s): C34.91 - Malignant neoplasm of unspecified part of right bronchus or lung
[2022-12-17 06:38] LABS: Hematocrit (blood only) 23.4 % (37.0-47.0); Hemoglobin 6.9 g/dl (12.0-16.0); Mean Corpuscular Hemoglobin 25.7 pg (25.0-34.0); Mean Corpuscular Hgb Conc 29.5 g/dL (32.0-36.0); Mean Platelet Volume 10.6 fL (9.4-12.4); Platelet Count 76 K/uL (130-400); RDW Coefficient of Variation 18.8 % (11.5-14.5); RDW Standard Deviation 60.8 fL (36.4-46.3); Red Blood Count 2.69 M/uL (4.20-5.40); White Blood Count 5.75 K/ul (4.8-10.8)
[2022-12-17 06:50] LABS: BUN Creatinine Ratio 10.5 (10-20); Calcium 7.2 mg/dl (8.6-10.3); Creatinine Clr Calc Pharmacy 6.6 ml/min; Est GFR (Non-African American) 7.7 ml/min; Potassium 5.8 mmol/L (3.5-5.1)
[2022-12-17] MEDS ORDERED: EPOETIN ALFA 20,000 UNITS/ML VIAL IV ONE (07:00)
[2022-12-17] MEDS ORDERED: SODIUM CHLORIDE 0.9% 1000ML 1,000 ML IV PRN (07:00)
[2022-12-17 07:01] LABS: Hypochromasia Present; Immature Granulocytes # (auto) 0.11 K/uL (0.01-0.20); Immature Granulocytes % (auto) 1.9 %; Lymphocytes # (auto) 0.13 K/uL (1.2-3.4); Lymphocytes % (auto) 2.3 %; Monocytes # (auto) 0.18 K/uL (0.11-0.59); Monocytes % (auto) 3.1 %; Neutrophils # (auto) 5.33 K/uL (1.40-6.50); Neutrophils % (auto) 92.7 %; Tear Drop Cells 1+
[2022-12-17] MEDS: CALCIUM ACETATE 667 MG CAP/TAB PO SCH ×3 (07:59→17:15)
[2022-12-17] MEDS: SUCRALFATE 1 GM/10 ML UDC PO SCH ×4 (07:59→21:45)
[2022-12-17] MEDS: FLUTICASONE/VILANTEROL 200/25MCG 14 PUFFS/INHALER INH SCH (08:00)
[2022-12-17] MEDS ORDERED: SODIUM CHLORIDE 0.9% 250 ML IV PRN (08:28)
--- NOTE | 2022-12-17 10:02 | Dialysis Progress Note ---
Date of Service December 17, 2022 Assessment & Plan Admission and Anticipated Discharge Date Admission Date: December 15, 2022 Subjective Subjective S----Seen During Dialysis today. No new issues. had CT head with contrast and palliative med also saw the patient. More interactive PHYSICAL EXAMINATION: GENERAL: A middle-aged white female, who appears chronically ill. She is very cachectic and only weighs 37 kilos. CHEST: Bilateral decreased breath sounds, prolonged expiratory wheezing. Occasional rhonchi bilaterally. CARDIOVASCULAR: S1 and S2, regular. ABDOMEN: Soft, nontender, slightly distended. EXTREMITIES: Show no edema. AV fistula is working fine. LABORATORY TEST: CT head and CT abdomen and pelvis was reviewed. She has a possible metastatic brain lesion as well as a large necrotic mass in the right hemidiaphragm. ASSESSMENT AND PLAN: A 62-year-old female with end-stage renal disease, end- stage lung disease and extremely cachectic and poor functional status. Now admitted with new onset seizure. The working diagnosis at this time is she has metastatic brain lesion causing seizure and also has a large mass in her right hemithorax. I have been consulted for dialysis management. 1. End-stage renal disease.Katey do regular dialysis today and we will do it for 3 hours on a 2k bath and take about 2 to 2.5 kilo off. Her cardiopulmonary reserve is extremely poor and she easily goes into pulmonary edema. 2. Seizure episode. At this point, this is attributed to possible metastatic brain lesion.I was asked whether she can have an MRI with contrast. As much as possible try to obtain information through CT with iv contrast. But if not enough can use Second generation MRI contrast to avoid the risk of NSF. We would also be obligated to do daily dialysis after MRI contrast which is not ideal in current situation. I have known this patient for many years now. If she really indeed has metastatic brain lesion, she will be best served with palliative medicine and conservative management. Given her overall disease burden ( ESRD, End stage Lung, Cirrhosis ) and her extremely frail status, I really do not believe she is a candidate for aggressive treatment for her metastatic cancer. Results & Data Vital Signs (Past 12 Hours) Vital Signs Temp Pulse Pulse Resp BP BP Pulse Ox 12/17/22 09:30 64 116/53 L 12/17/22 09:00 71 109/56 L 12/17/22 08:56 103 H 12/17/22 08:30 74 115/60 12/17/22 08:22 36.4 C L 74 12/17/22 07:52 36.6 C 73 16 122/50 L 100 12/17/22 03:30 97 12/17/22 03:26 36.7 C 80 20 124/60 90 12/17/22 03:18 12/16/22 23:51 36.7 C 79 20 121/46 L 92 Pulse Ox O2 Del Method O2 Del Method O2 Flow Rate O2 Flow Rate 12/17/22 09:30 12/17/22 09:00 12/17/22 08:56 12/17/22 08:30 12/17/22 08:22 12/17/22 07:52 Nasal Cannula 2 12/17/22 03:30 Nasal Cannula 2 12/17/22 03:26 Nasal Cannula 2 12/17/22 03:18 97 Nasal Cannula 2 12/16/22 23:51 Nasal Cannula
--- NOTE | 2022-12-17 15:31 | Hospitalist Progress Note ---
Date of Service December 17, 2022 Assessment & Plan (1) New onset seizure: Plan: Likely from increased intracranial pressure secondary to tumorigenic edema Likely brain mets secondary to probable recurrent lung malignancy with probable hepatic mets as well, past history radiation EEG has been normal Awaiting MRI of the brain without contrast Appreciate neurology input and recommendation We will continue Keppra to 250 mg Q6 hourly for now for seizure Decadron to decrease the edema Seizure precautions MRI of the head without contrast and CT of the head with contrast confirmed 1.5 cm enhancing lesion seen in the right high frontal lobe with significant surrounding edema She remains stable without any more episodes of seizure No more seizures Palliative care encounter Appreciate palliative care input and recommendation Likely to need placement on discharge Chronic diastolic heart failure, some congestion on CXR Remains stable Denies any cardiac symptoms Hemoglobin dropped to 6.9 Likely secondary to ongoing cancer No evidence of bleeding Will give 1 unit of PRBC Monitor CBC (2) Acute encephalopathy: Plan: Likely secondary to postictal status and is complicated by use of narcotic pain medication and anxiolytics Secondary to metastatic lesion in the brain with edema Acute encephalopathy is resolved (3) Metastasis to brain: Plan: 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 We will get MRI to evaluate the brain lesion better We cannot do any MRI with contrast due to complications and side effect 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 Radiation oncology and Oncology consultations Re: Metastatic lung cancer Appreciate palliative care input and recommendation Repeat CT head with contrast confirmed metastatic disease with vasogenic edema in the brain as above Appreciate radiation oncology input Will have radiotherapy to shrink the metastatic tumor and edema Continue Decadron for now (4) ESRD (end stage renal disease) on dialysis: Plan: Has been on dialysis for a while Has hyperkalemia and also increasing BUN and creatinine Bicarb and IV insulin for hyperkalemia Nephrology consultation Re: Dialysis management Appreciate nephrology input and recommendation We will continue dialysis (5) COPD (chronic obstructive pulmonary disease): Plan: History of COPD and also non-small cell lung cancer of the lung Also interstitial disease in the lung is complicating COPD and shortness of breath Has chronic respiratory failure on oxygen (6) Nodular goiter: (7) Mass of right lung: Plan: History of non-small cell cancer of the lung (8) Non-small cell lung cancer (NSCLC): Plan: Right middle lobe bronchial biopsy confirmed adenocarcinoma in 20 17 (9) Interstitial lung disease: Plan Other medical conditions are as follows Left breast cancer sp surgery/chemoradiation Hypothyroidism, TSH slightly elevated Chronic anemia, hemoglobin at baseline Past tobacco abuse DVT prophylaxis. SCDs RE brain tumor DNR as per patient's daughter. Discussed with the family members Prognosis remains guarded Patient family requesting updates from providers. Ms. Yareli Grant (daughter), contact #[phone]. Mr. Danilo Grant (), contact # [phone]. Admission and Anticipated Discharge Date Admission Date: December 15, 2022 Subjective The patient was seen and examined in medical telemetry unit She has been complaining of generalized discomfort Denies any headache, blurred vision, any numbness and or tingling in the extremities Did not have any more seizure No fever and or chills but remains generally very weak and lethargic 12/16/2022 The patient was seen and examined in medical telemetry unit She remains very weak and lethargic and her condition has not changed since admission Did not have any more seizure since admission Denies any shortness of breath, pain, nausea and or vomiting 12/17/2022 The patient was seen and examined in medical telemetry unit in presence of the family members She has been weak and lethargic and her condition has not changed Remains generally weak and the hemoglobin noted to be low at 6.9 No more seizures Review of Systems Review of Systems: All systems reviewed and are unremarkable except as noted below Neurologic: Alert, awake and oriented x3. Generally weak Physical Exam Physical Exam: Lying in bed with some distress due to weakness and minimal shortness of breath Constitutional: + ill appearing and average body habitus Eyes: PERRL, conjunctivae normal, anicteric sclerae ENMT: external ear and nose normal, oropharynx normal Respiratory: no respiratory distress Auscultation: + diminished lung sounds and + crackles (Minimal crackles bibasally more on the right than the left) Cardiovascular: Rate/Rhythm: regular rate and regular rhythm; not tachycardic Heart Sounds: normal S1 and normal S2; no murmur Extremities: no edema Gastrointestinal (Abdomen): Inspection/Auscultation: normal bowel sounds; abdomen not distended Percussion/Palpation: + abdomen tender and abdomen soft Musculoskeletal: No acute arthritis involving any joint Neurologic: Alert, awake and oriented x3. Generally very weak Lymphatic: no cervical or axillary lymphadenopathy Results & Data Results & Data Vital Signs (Past 12 Hours) Vital Signs Temp Pulse Pulse Resp BP BP Pulse Ox 12/17/22 12:45 36.8 C 88 18 114/68 93 12/17/22 11:35 36.4 C L 78 124/58 L 12/17/22 11:30 82 108/55 L 12/17/22 11:00 70 110/53 L 12/17/22 07:45 12/17/22 10:30 78 121/62 12/17/22 10:00 83 114/58 L 12/17/22 09:30 64 116/53 L 12/17/22 09:00 71 109/56 L 12/17/22 08:56 103 H 12/17/22 08:30 74 115/60 12/17/22 08:22 36.4 C L 74 12/17/22 07:52 36.6 C 73 16 122/50 L 100 12/17/22 03:30 97 12/17/22 03:26 36.7 C 80 20 124/60 90 O2 Del Method O2 Flow Rate 12/17/22 12:45 Nasal Cannula 2 12/17/22 11:35 12/17/22 11:30 12/17/22 11:00 12/17/22 07:45 Nasal Cannula 2 12/17/22 10:30 12/17/22 10:00 12/17/22 09:30 12/17/22 09:00 12/17/22 08:56 12/17/22 08:30 12/17/22 08:22 12/17/22 07:52 Nasal Cannula 2 12/17/22 03:30 Nasal Cannula 2 12/17/22 03:26 Nasal Cannula 2 Laboratory Results Short CBC 12/17/22 Range/Units 06:03 WBC 5.75 (4.8-10.8) K/ul Hgb 6.9 L* (12.0-16.0) g/dl Hct 23.4 L (37.0-47.0) % Plt Count 76 L (130-400) K/uL BMP 12/17/22 06:03 Sodium 134 L Potassium 5.8 H Chloride 101 Carbon Dioxide 22 BUN 57 H D Creatinine 5.44 H* D Glucose 191 H Calcium 7.2 L Medications Administered Current Inpatient Medications Acetaminophen (Acetaminophen 500 Mg Tab) 500 mg PO Q6H PRN PRN Reason: pain/fever Stop: 01/14/23 03:27 Last Admin: 12/16/22 19:42 Dose: 500 mg Calcium Acetate (Calcium Acetate 667 Mg Cap/Tab) 667 mg PO TIDM [facility] Stop: 01/15/23 11:59 Last Admin: 12/17/22 12:23 Dose: 667 mg Famotidine (Famotidine 20 Mg Tab) 20 mg PO HS [facility] Stop: 01/14/23 20:59 Last Admin: 12/16/22 19:42 Dose: 20 mg Fluticasone/Vilanterol (Fluticasone/Vilanterol 200/25mcg 14 Puffs/Inhaler) 1 puffs INH QAM [facility] Stop: 01/14/23 08:59 Last Admin: 12/17/22 08:00 Dose: 1 puffs Levetiracetam 1,000 mg/ Sodium (Chloride) 110 mls @ 440 mls/hr IV Q24H [facility] Stop: 01/14/23 20:59 Last Infusion: 12/16/22 20:05 Dose: Infused Dexamethasone 4 mg/ Syringe 1 mls @ 1 mls/min IV Q6H [facility] Stop: 01/14/23 05:59 Last Admin: 12/17/22 12:23 Dose: 1 mls/min Promethazine HCl 6.25 mg/ (Sodium Chloride) 50.25 mls @ 201 mls/hr IV Q6H PRN PRN Reason: Nausea And Vomiting Stop: 01/14/23 03:27 Sodium Chloride (Nss) 250 mls @ 15 mls/hr IV .[id number] PRN PRN Reason: For Transfusion Duration Stop: 12/17/22 18:29 Levothyroxine Sodium (Levothyroxine Sodium 75 Mcg Tablet) 75 mcg PO DAILYBB [facility] Stop: 01/14/23 06:29 Last Admin: 12/17/22 05:47 Dose: 75 mcg Lorazepam (Lorazepam 2 Mg/1 Ml Vial) 1 mg IV Q10M PRN PRN Reason: seizures Stop: 01/14/23 03:27 Oxycodone HCl (Oxycodone Hcl Ir 5 Mg Tab (Immediate Release)) 5 mg PO Q2H PRN PRN Reason: Pain or dyspnea Stop: 12/30/22 16:59 Pantoprazole Sodium (Pantoprazole 40 Mg Tab) 40 mg PO DAILYBB [facility] Stop: 01/14/23 06:29 Last Admin: 12/17/22 05:47 Dose: 40 mg Simvastatin (Simvastatin 20 Mg Tab) 20 mg PO HS [facility] Stop: 01/14/23 20:59 Last Admin: 12/16/22 19:42 Dose: 20 mg Sucralfate (Sucralfate 1 Gm/10 Ml Udc) 1 gm PO ACHS [facility] Stop: 01/14/23 07:29 Last Admin: 12/17/22 12:22 Dose: 1 gm (5) COPD (chronic obstructive pulmonary disease) COPD type: COPD with acute exacerbation Qualified Code(s): J44.1 - Chronic obstructive pulmonary disease with (acute) exacerbation (8) Non-small cell lung cancer (NSCLC) Laterality: right Qualified Code(s): C34.91 - Malignant neoplasm of unspecified part of right bronchus or lung
--- NOTE | 2022-12-17 17:14 | Radiation Oncology Progress Nt ---
Date of Service December 17, 2022 Assessment & Plan (1) Non-small cell lung cancer (NSCLC): (2) Metastasis to brain: Plan Assessment: Ms. Grant is a 62-year-old female with end-stage renal disease on dialysis and cirrhosis who presents with a history of breast cancer treated with surgery, chemotherapy and radiation therapy (2000) and more recently early stage lung cancer treatment lung SBRT (2018). The patient was admitted to the hospital due to a seizure at home. The patient was then subsequently brought to the emergency room and admitted to the hospital. Neuroimaging studies include CT head with contrast and MRI brain without contrast due to her end-stage renal disease which suggest either a solitary brain metastasis versus primary glial mass neoplasm. The patient has been evaluated by both palliative care and medical oncology. Medical oncology has recommended consideration for stereotactic treatment to the solitary brain metastasis followed by rehab and potential consideration of a diagnostic work-up if the patient is doing well. I am now seeing the patient back in follow-up evaluation in the inpatient setting to discuss treatment options with the patient and her family. Plan: 1. Proceed with stereotactic radiosurgery to solitary brain lesion. Plan for 3 fractions. Can be done in the outpatient setting. Consent obtained from today. 2. CT simulation for treatment planning for radiation therapy to be completed either or Thursday. IV contrast. I have communicated with Dr. Marr who has indicated that it should be okay to use IV contrast for hard CT simulation scan. Dr. Washburn will prescribe Ativan prior to simulation due to claustrophobia. 3. Continue dexamethasone 4 mg every 6 hours. Defer seizure medications to neurology. 4. Patient and family encouraged to call us with any further questions or concerns. Discussion: I explained the indications, alternatives, benefits, risks and side effects of external beam radiation therapy. I explain the most common side effects including but not limited to skin erythema, skin break down, hair loss, radiation necrosis, fatigue, short-term memory loss, decreased neurocognitive performance, cerebral edema, hearing loss, damage to cochlea structures, seizures, loss of sensory and or motor function. I explained the treatment planning process and what to expect before during and after treatment. Admission and Anticipated Discharge Date Admission Date: December 15, 2022 Subjective Decreased appetite with weight loss and general malaise over the past few weeks. Abdominal pain. Evaluation by primary care physician (Dr. Barnes). 12/03/2022. CT of the chest. IMPRESSION: 1. Interval expansion of the right middle lobe with a lobular low-density focus which measures 6.5 x 4.9 cm. This is surrounded by the hyperdense material within the right middle lobe seen on the prior study. A cystic heterogeneous mass of the right middle lobe is the diagnosis of exclusion. This could also represent multiple dilated impacted right middle lobe bronchi. Therefore, follow-up bronchoscopy recommended. 2. The irregular mixed density focus within the base of the right lower lobe has also slightly increased in size and now measures 3.9 x 2.1 cm. 3. Diffuse interlobular septal thickening and near diffuse groundglass airspace opacities are again noted. 4. No change in the hyperdense mediastinal and bilateral hilar lymphadenopathy. 5. Stable cardiomegaly. 12/03/2022. CT of abdomen and pelvis. IMPRESSION: 1. No acute infectious or inflammatory findings are identified in the abdomen or pelvis. 2. The liver is cirrhotic in morphology and heterogeneous in attenuation. 3. Splenomegaly and a small amount of pelvic ascites indicate portal hypertension. 4. There is a 1.5 cm indeterminate lesion in the lower pole of left kidney. This is new from 05/20/2021 and does not represent a simple cyst. A renal neoplasm is not excluded. An ultrasound of the kidneys is recommended for further evaluation. 5. Cardiomegaly with evidence of anemia and fluid overload/congestive change. Bibasilar groundglass opacity likely represent pulmonary edema and clinical correlation will be required. 6. There is an approximately 6.5 x 4 cm lobulated hypodense septated lesion in the right middle lobe which is new from 05/20/2021. This is pathologically indeterminant and a neoplasm is not excluded. Pulmonology follow up isrecommended. 7. Additional hyperdense opacities at the right lung base are again noted. These have modestly increased in size from previous. See report of chest CT performed concurrently for detailed pulmonary findings. 12/14/2022. On sent of seizures. 12/14/2022. Head CT. Without contrast. Right superior frontal 1 cm slightly hyperdense mass with extensive surrounding vasogenic edema. Suspect metastasis or tumor. Recommend MRI. 12/14/2022. CT of abdomen and pelvis. Impression: 1. Right lower lobe large necrotic mass partially included in the field of view overlying the right hemidiaphragm measuring at least 7.5 cm. Recommend correlation with CT chest and or perhaps PET/CT. Tomorrow metastases is suspected. 2. Heterogeneous foci in the liver and low density in spleen also suspicious for metastases. 3. Status post cholecystectomy. 4. Severe atrophy of bilateral [place] kidneys. 5. Atherosclerotic disease of abdominal aorta, aortic bifurcation and common iliac arteries. 6. Lumbar spine degenerative changes. Allergies 12/15/2022. MRI brain. IMPRESSION: 1. The examination is degraded by motion artifact. The examination is also significantly suboptimal without IV contrast. 2. Again seen is a large focus of edema within the high right frontoparietal region. This remains highly suspicious for underlying mass lesion or metastatic disease. This cannot be further evaluated without IV contrast. 2. There is effacement of the overlying cortical sulci. No midline shift is seen. 3. No additional similar appearing foci of edema are identified throughout the left hemisphere. 4. There is no hemorrhage or evidence of acute ischemia. 12/16/2022. CT head with contrast. IMPRESSION: 1. There is a 1.5 cm enhancing lesion seen in the high right frontal lobe with significant surrounding edema as above. This could represent a primary glial neoplasm versus metastatic disease. 2. The degree of edema is similar to yesterday. 3. No additional enhancing lesion is identified by CT. 4. There is no hemorrhage or evidence of acute territorial ischemia by CT criteria. 12/17/2022. Medical oncology consultation by Dr. Hubbard. 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 Followed by rehab. Followed by potential staging studies and potential biopsy if appropriate. Otherwise palliative in past supportive care is appropriate 2. Radiation History 11/10/2000. Status post completion of radiation therapy to the left breast. [facility] This was a poorly differentiated infiltrating ductal carcinoma in the upper outer quadrant. Stage [id number]. Stage I. She had breast conservative surgery followed by CMF chemotherapy for 6 cycles. Then radiation. Adenocarcinoma of the right middle lobe. Stage IA 3. 05/02/2019-05/13/2019. Definitive SBRT to right middle lobe lung lesion. [facility] Review of Systems Review of Systems: Patient's mentation is better. She is doing overall better. She denies any focal neurologic deficits. Physical Exam 2 Constitutional: WD/WN, vitals as above Psychiatric: A+Ox3, euthymic affect Results & Data Vital Signs (Past 12 Hours) Vital Signs Temp Pulse Pulse Resp BP BP Pulse Ox 12/17/22 16:38 36.9 C 92 H 16 126/52 L 96 12/17/22 14:25 85 12/17/22 12:45 36.8 C 88 18 114/68 93 12/17/22 11:35 36.4 C L 78 124/58 L 12/17/22 11:30 82 108/55 L 12/17/22 11:00 70 110/53 L 12/17/22 07:45 12/17/22 10:30 78 121/62 12/17/22 10:00 83 114/58 L 12/17/22 09:30 64 116/53 L 12/17/22 09:00 71 109/56 L 12/17/22 08:56 103 H 12/17/22 08:30 74 115/60 12/17/22 08:22 36.4 C L 74 12/17/22 07:52 36.6 C 73 16 122/50 L 100 O2 Del Method O2 Flow Rate 12/17/22 16:38 Room Air 12/17/22 14:25 12/17/22 12:45 Nasal Cannula 2 12/17/22 11:35 12/17/22 11:30 12/17/22 11:00 12/17/22 07:45 Nasal Cannula 2 12/17/22 10:30 12/17/22 10:00 12/17/22 09:30 12/17/22 09:00 12/17/22 08:56 12/17/22 08:30 12/17/22 08:22 12/17/22 07:52 Nasal Cannula 2 PG Care Time/CCT Total # of Minutes Spent Total Time Spent with Patient: Total time spent is greater than 50% in coordination of care (as documented) at patient's floor/unit and/or counseling patient: Coding Level of Care Code 68130 SUB INP/OBS CARE 3/50MIN Diagnoses Non-small cell lung cancer (NSCLC) C34.91 Laterality: right Metastasis to brain C79.31 (1) Non-small cell lung cancer (NSCLC) Laterality: right Qualified Code(s): C34.91 - Malignant neoplasm of unspecified part of right bronchus or lung
[2022-12-17] MEDS: FAMOTIDINE 20 MG TAB PO SCH (21:45)
[2022-12-17] MEDS: SIMVASTATIN 20 MG TAB PO SCH (21:45)
[2022-12-18] MEDS: levETIRAcetam 1,000 MG in 0.9 % SODIUM CHLORIDE 100 ML IV SCH ×2 (00:42→20:39)
[2022-12-18] MEDS: dexAMETHasone 4 MG in SYRINGE 0 ML IV SCH ×4 (00:43→17:27)
[2022-12-18] MEDS: LEVOTHYROXINE SODIUM 75 MCG TABLET PO SCH (05:41)
[2022-12-18] MEDS: PANTOprazole 40 MG TAB PO SCH (05:42)
[2022-12-18] MEDS: SUCRALFATE 1 GM/10 ML UDC PO SCH ×4 (08:28→20:39)
[2022-12-18] MEDS: FLUTICASONE/VILANTEROL 200/25MCG 14 PUFFS/INHALER INH SCH (08:30)
[2022-12-18] MEDS: CALCIUM ACETATE 667 MG CAP/TAB PO SCH ×3 (08:30→17:26)
[2022-12-18 08:45] LABS: Calcium 7.8 mg/dl (8.6-10.3); Creatinine Clr Calc Pharmacy 9.8 ml/min; Est GFR (African American) 14.2 ml/min; Est GFR (Non-African American) 12.2 ml/min; Magnesium 1.7 mg/dl (1.7-2.4); Phosphorus 3.1 mg/dl (2.5-4.9); Potassium 4.6 mmol/L (3.5-5.1)
[2022-12-18] MEDS ORDERED: LORazepam 2 MG/1 ML VIAL IV STA (09:18)
[2022-12-18 09:48] LABS: Hematocrit (blood only) 32.6 % (37.0-47.0); Hemoglobin 10.1 g/dl (12.0-16.0); Mean Corpuscular Hemoglobin 26.6 pg (25.0-34.0); Platelet Count 68 K/uL (130-400); RDW Coefficient of Variation 17.4 % (11.5-14.5); RDW Standard Deviation 54.7 fL (36.4-46.3); Red Blood Count 3.79 M/uL (4.20-5.40); White Blood Count 5.79 K/ul (4.8-10.8)
[2022-12-18 09:59] LABS: Basophils # (auto) 0.02 K/uL (0-0.2); Basophils % (auto) 0.3 %; Immature Granulocytes # (auto) 0.33 K/uL (0.01-0.20); Immature Granulocytes % (auto) 5.7 %; Lymphocytes # (auto) 0.12 K/uL (1.2-3.4); Lymphocytes % (auto) 2.1 %; Monocytes # (auto) 0.19 K/uL (0.11-0.59); Monocytes % (auto) 3.3 %; Neutrophils # (auto) 5.13 K/uL (1.40-6.50); Neutrophils % (auto) 88.6 %
--- NOTE | 2022-12-18 10:15 | Nephrology Progress Note ---
Date of Service December 18, 2022 Assessment & Plan Admission and Anticipated Discharge Date Admission Date: December 15, 2022 Subjective [facility], [id number] Dialysis Progress Note Subjective S---- No new issues. No issues with Dialysis yesterday. Getting Radiation oNc Tretament for brain lesion PHYSICAL EXAMINATION: GENERAL: A middle-aged white female, who appears chronically ill. She is very cachectic and only weighs 37 kilos. CHEST: Bilateral decreased breath sounds, prolonged expiratory wheezing. Occasional rhonchi bilaterally. CARDIOVASCULAR: S1 and S2, regular. ABDOMEN: Soft, nontender, slightly distended. EXTREMITIES: Show no edema. AV fistula is working fine. LABORATORY TEST: CT head and CT abdomen and pelvis was reviewed. She has a possible metastatic brain lesion as well as a large necrotic mass in the right hemidiaphragm. ASSESSMENT AND PLAN: A 62-year-old female with end-stage renal disease, end- stage lung disease and extremely cachectic and poor functional status. Now admitted with new onset seizure. The working diagnosis at this time is she has metastatic brain lesion causing seizure and also has a large mass in her right hemithorax. I have been consulted for dialysis management. 1. End-stage renal disease.Will do regular dialysis tomorrow and we will do it for 3 hours on a 2k bath and take about 2 to 2.5 kilo off. Her cardiopulmonary reserve is extremely poor and she easily goes into pulmonary edema. 2. Seizure episode. At this point, this is attributed to possible metastatic brain lesion. Getting rad Onc Tretament. No issues with Iv contrast as her kidneys are totally Non functional. Results & Data Vital Signs (Past 12 Hours) Vital Signs Temp Pulse Pulse Resp BP BP Pulse Ox 12/18/22 09:33 12/18/22 08:14 36.9 C 83 18 157/68 H 94 12/18/22 07:32 81 12/18/22 03:40 36.6 C 84 16 143/65 H 93 12/17/22 23:00 88 12/17/22 23:00 12/17/22 23:36 36.5 C 81 16 144/63 H 91 12/17/22 23:05 36.4 C L 85 16 146/54 H 91 12/17/22 22:42 36.5 C 85 20 137/46 L 97 O2 Del Method O2 Flow Rate 12/18/22 09:33 Nasal Cannula 2 12/18/22 08:14 Nasal Cannula 2 12/18/22 07:32 12/18/22 03:40 Room Air 12/17/22 23:00 12/17/22 23:00 Nasal Cannula 2 12/17/22 23:36 2 12/17/22 23:05 2 12/17/22 22:42 Nasal Cannula 2
--- NOTE | 2022-12-18 10:38 | Neurology Progress Note ---
Date of Service December 18, 2022 Assessment & Plan (1) New onset seizure: (2) Acute encephalopathy: (3) Metastasis to brain: Plan The patient had new onset seizure December 14 at home and then again in the emergency room. She has had no seizures since admission on levetiracetam The seizure was likely from the right frontal lesion seen on CT and MRI. This is likely metastasis from the lung. she had confusion which is markedly improved. Recommendations: 1. Consider changing levetiracetam to 250 mg p.o. twice daily. 2. continue Decadron as per Oncology 3. Radiation to the tumor as per Radiation Oncology Overall, I spent a total of 35 minutes with this case including review of records, direct evaluation the patient at bedside, and discussion of the case with the patient and RN at bedside , and Dr. Washburn, including differential diagnosis and treatment options. Admission and Anticipated Discharge Date Admission Date: December 15, 2022 Subjective Patient is in some pain with her abdomen and has some nausea. Otherwise she has no headache or neck pain. She has some blurry vision but notes cataracts. she weighs about 80 lb now and tells me that her "normal weight" is about 100. Blood pressure is 167/88 and Laboratory studies reveal anemia ( improved from yesterday after EPO) Radiation oncology is going to be radiating the right frontal lesion seen with CT scan of the head and contrast. She has been on Decadron and as the swelling reduces she will be more alert. The patient has had no further seizures since admission. Results & Data Vital Signs (Past 12 Hours) Vital Signs Temp Pulse Pulse Resp BP BP Pulse Ox 12/18/22 09:33 12/18/22 08:14 36.9 C 83 18 157/68 H 94 12/18/22 07:32 81 12/18/22 03:40 36.6 C 84 16 143/65 H 93 12/17/22 23:00 88 12/17/22 23:00 12/17/22 23:36 36.5 C 81 16 144/63 H 91 12/17/22 23:05 36.4 C L 85 16 146/54 H 91 12/17/22 22:42 36.5 C 85 20 137/46 L 97 O2 Del Method O2 Flow Rate 12/18/22 09:33 Nasal Cannula 2 12/18/22 08:14 Nasal Cannula 2 12/18/22 07:32 12/18/22 03:40 Room Air 12/17/22 23:00 12/17/22 23:00 Nasal Cannula 2 12/17/22 23:36 2 12/17/22 23:05 2 12/17/22 22:42 Nasal Cannula 2 Exam (Neuro) Physical Exam: She is very awake and alert today with normal speech and mentation. Mood and affect are normal appropriate. Thought processes are intact and she has reasonable long and short-term memory. Extraocular eye muscles are intact without nystagmus. There is no facial droop. Without tricks arms are is no drift and there is no ataxia or tremor. Strength is close to 5/5 diffusely in the right arm and leg and 4+/ 5 in the left arm and leg. PG Care Time/CCT Total # of Minutes Spent Total Time Spent with Patient: Total time spent is greater than 50% in coordination of care (as documented) at patient's floor/unit and/or counseling patient: Coding Level of Care Code 29461 SUB INP/OBS CARE 2/35MIN Diagnoses New onset seizure R56.9 Acute encephalopathy G93.40 Metastasis to brain C79.31 Time Spent (min) 35
--- NOTE | 2022-12-18 12:39 | Communication Note ---
Date of Service: December 18, 2022 Palliative Medicine Sign Off Note Patient was seen/evaluated and initial ACP/GOC were held with her and family. She would like to explore cancer directed therapy options. She remains undecided re SNF rehab placement. Would note that SNF rehab for this HD patient may be hard to find locally unless there is a SNF willing to transport her TIW to HD or has HD capacity on site. This may impact her decision as well. Palliative Medicine will sign off as GOC have been clarified and she has no new or acute palliative medicine need at this time. Thank you for allowing us to participate in the ongoing care of this patient. Please don't hesitate to call or page with any additional concerns. Dr. Judi Naidu DNP Director, Palliative Care
--- NOTE | 2022-12-18 16:39 | Hospitalist Progress Note ---
Date of Service December 18, 2022 Assessment & Plan (1) New onset seizure: Plan: Likely from increased intracranial pressure secondary to tumorigenic edema Likely brain mets secondary to probable recurrent lung malignancy with probable hepatic mets as well, past history radiation EEG has been normal Awaiting MRI of the brain without contrast Appreciate neurology input and recommendation We will continue Keppra to 250 mg Q6 hourly for now for seizure Decadron to decrease the edema Seizure precautions MRI of the head without contrast and CT of the head with contrast confirmed 1.5 cm enhancing lesion seen in the right high frontal lobe with significant surrounding edema She remains stable without any more episodes of seizure No more seizures-we will continue with the current medications Palliative care encounter Appreciate palliative care input and recommendation Likely to need placement on discharge PT OT recommended home Likely discharge home tomorrow following first dose of radiation therapy in the brain Chronic diastolic heart failure, some congestion on CXR Remains stable Denies any cardiac symptoms No signs and or symptoms of fluid overload Hemoglobin dropped to 6.9 Likely secondary to ongoing cancer No evidence of bleeding Will give 1 unit of PRBC Hemoglobin went up to 10.1 following 1 unit of blood transfusion and the platelet remains low at 68 (2) Acute encephalopathy: Plan: Likely secondary to postictal status and is complicated by use of narcotic pain medication and anxiolytics Secondary to metastatic lesion in the brain with edema Acute encephalopathy is resolved (3) Metastasis to brain: Plan: 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 We will get MRI to evaluate the brain lesion better We cannot do any MRI with contrast due to complications and side effect as per head waiter Radiation oncology and Oncology consultations Re: Metastatic lung cancer Appreciate palliative care input and recommendation Repeat CT head with contrast confirmed metastatic disease with vasogenic edema in the brain as above Appreciate radiation oncology input Will have radiotherapy to shrink the metastatic tumor and edema Continue Decadron for now Will have radiation therapy tomorrow (4) ESRD (end stage renal disease) on dialysis: Plan: Has been on dialysis for a while Has hyperkalemia and also increasing BUN and creatinine Bicarb and IV insulin for hyperkalemia Nephrology consultation Re: Dialysis management Appreciate nephrology input and recommendation We will continue dialysis-as an outpatient (5) COPD (chronic obstructive pulmonary disease): Plan: History of COPD and also non-small cell lung cancer of the lung Also interstitial disease in the lung is complicating COPD and shortness of breath Has chronic respiratory failure on oxygen (6) Nodular goiter: (7) Mass of right lung: Plan: History of non-small cell cancer of the lung (8) Non-small cell lung cancer (NSCLC): Plan: Right middle lobe bronchial biopsy confirmed adenocarcinoma in 20 17 (9) Interstitial lung disease: Plan Other medical conditions are as follows Left breast cancer sp surgery/chemoradiation Hypothyroidism, TSH slightly elevated Chronic anemia, hemoglobin at baseline Past tobacco abuse DVT prophylaxis. SCDs RE brain tumor DNR as per patient's daughter. Discussed with the family members Prognosis remains guarded Patient family requesting updates from providers. Ms. Yareli Grant (daughter), contact #[phone]. Mr. Danilo Grant (), contact # [phone]. Admission and Anticipated Discharge Date Admission Date: December 15, 2022 Subjective The patient was seen and examined in medical telemetry unit She has been complaining of generalized discomfort Denies any headache, blurred vision, any numbness and or tingling in the extremities Did not have any more seizure No fever and or chills but remains generally very weak and lethargic 12/16/2022 The patient was seen and examined in medical telemetry unit She remains very weak and lethargic and her condition has not changed since admission Did not have any more seizure since admission Denies any shortness of breath, pain, nausea and or vomiting 12/17/2022 The patient was seen and examined in medical telemetry unit in presence of the family members She has been weak and lethargic and her condition has not changed Remains generally weak and the hemoglobin noted to be low at 6.9 No more seizures 12/18/2022 The patient was seen and examined in medical telemetry unit She has been feeling a little better but is still has profound weakness She has had 2 episodes of small amount of blood in the sputum last evening and this morning No increasing shortness of breath Review of Systems Review of Systems: All systems reviewed and are unremarkable except as noted below Neurologic: Alert, awake and oriented x3. Generally weak Physical Exam Physical Exam: Lying in bed with some distress due to weakness and minimal shortness of breath Constitutional: + ill appearing and average body habitus Eyes: PERRL, conjunctivae normal, anicteric sclerae ENMT: external ear and nose normal, oropharynx normal Respiratory: no respiratory distress Auscultation: + diminished lung sounds and + crackles (Minimal crackles bibasally more on the right than the left) Cardiovascular: Rate/Rhythm: regular rate and regular rhythm; not tachycardic Heart Sounds: normal S1 and normal S2; no murmur Extremities: no edema Gastrointestinal (Abdomen): Inspection/Auscultation: normal bowel sounds; abdomen not distended Percussion/Palpation: + abdomen tender and abdomen soft Musculoskeletal: No acute arthritis involving any joint Neurologic: Alert, awake and oriented x3. Generally very weak and lethargic Lymphatic: no cervical or axillary lymphadenopathy Results & Data Results & Data Vital Signs (Past 12 Hours) Vital Signs Temp Pulse Pulse Resp BP Pulse Ox O2 Del Method 12/18/22 15:41 36.4 C L 92 H 19 159/67 H 97 Nasal Cannula 12/18/22 15:22 81 12/18/22 11:21 36.5 C 81 20 159/69 H 99 Nasal Cannula 12/18/22 09:33 Nasal Cannula 12/18/22 08:14 36.9 C 83 18 157/68 H 94 Nasal Cannula 12/18/22 07:32 81 O2 Flow Rate 12/18/22 15:41 2 12/18/22 15:22 12/18/22 11:21 2 12/18/22 09:33 2 12/18/22 08:14 2 12/18/22 07:32 Laboratory Results Short CBC 12/18/22 12/18/22 Range/Units 08:00 09:06 WBC Cancelled 5.79 Hgb Cancelled 10.1 L D Hct Cancelled 32.6 L Plt Count Cancelled 68 L BMP 12/18/22 08:00 Sodium 138 Potassium 4.6 D Chloride 104 Carbon Dioxide 23 BUN 41 H Creatinine 3.72 H D Glucose 200 H Calcium 7.8 L Medications Administered Current Inpatient Medications Acetaminophen (Acetaminophen 500 Mg Tab) 500 mg PO Q6H PRN PRN Reason: pain/fever Stop: 01/14/23 03:27 Last Admin: 12/16/22 19:42 Dose: 500 mg Calcium Acetate (Calcium Acetate 667 Mg Cap/Tab) 667 mg PO TIDM KAVON Stop: 01/15/23 11:59 Last Admin: 12/18/22 11:24 Dose: 667 mg Famotidine (Famotidine 20 Mg Tab) 20 mg PO HS [facility] Stop: 01/14/23 20:59 Last Admin: 12/17/22 21:45 Dose: 20 mg Fluticasone/Vilanterol (Fluticasone/Vilanterol 200/25mcg 14 Puffs/Inhaler) 1 puffs INH QAM [facility]ON Stop: 01/14/23 08:59 Last Admin: 12/18/22 08:30 Dose: 1 puffs Levetiracetam 1,000 mg/ Sodium (Chloride) 110 mls @ 440 mls/hr IV Q24H [facility] Stop: 01/14/23 20:59 Last Infusion: 12/18/22 01:07 Dose: Infused Dexamethasone 4 mg/ Syringe 1 mls @ 1 mls/min IV Q6H [facility] Stop: 01/14/23 05:59 Last Admin: 12/18/22 11:24 Dose: 1 mls/min Promethazine HCl 6.25 mg/ (Sodium Chloride) 50.25 mls @ 201 mls/hr IV Q6H PRN PRN Reason: Nausea And Vomiting Stop: 01/14/23 03:27 Levothyroxine Sodium (Levothyroxine Sodium 75 Mcg Tablet) 75 mcg PO DAILYBB [facility] Stop: 01/14/23 06:29 Last Admin: 12/18/22 05:41 Dose: 75 mcg Lorazepam (Lorazepam 2 Mg/1 Ml Vial) 1 mg IV Q10M PRN PRN Reason: seizures Stop: 01/14/23 03:27 Oxycodone HCl (Oxycodone Hcl Ir 5 Mg Tab (Immediate Release)) 5 mg PO Q2H PRN PRN Reason: Pain or dyspnea Stop: 12/30/22 16:59 Pantoprazole Sodium (Pantoprazole 40 Mg Tab) 40 mg PO DAILYBB [facility] Stop: 01/14/23 06:29 Last Admin: 12/18/22 05:42 Dose: 40 mg Simvastatin (Simvastatin 20 Mg Tab) 20 mg PO HS [facility] Stop: 01/14/23 20:59 Last Admin: 12/17/22 21:45 Dose: 20 mg Sucralfate (Sucralfate 1 Gm/10 Ml Udc) 1 gm PO ACHS [facility] Stop: 01/14/23 07:29 Last Admin: 12/18/22 11:23 Dose: 1 gm (5) COPD (chronic obstructive pulmonary disease) COPD type: COPD with acute exacerbation Qualified Code(s): J44.1 - Chronic obstructive pulmonary disease with (acute) exacerbation (8) Non-small cell lung cancer (NSCLC) Laterality: right Qualified Code(s): C34.91 - Malignant neoplasm of unspecified part of right bronchus or lung
[2022-12-18] MEDS ORDERED: ALBUT/IPRATROP 3MG/0.5MG NEB 3 ML VIAL NEB PRN (20:38)
[2022-12-18] MEDS: SIMVASTATIN 20 MG TAB PO SCH (20:39)
[2022-12-18] MEDS: FAMOTIDINE 20 MG TAB PO SCH (20:39)
[2022-12-18] MEDS: ALBUT/IPRATROP 3MG/0.5MG NEB 3 ML VIAL NEB SCH (20:52)
[2022-12-19] MEDS: dexAMETHasone 4 MG in SYRINGE 0 ML IV SCH ×5 (00:30→23:59)
[2022-12-19] MEDS: PANTOprazole 40 MG TAB PO SCH (05:51)
[2022-12-19] MEDS: LEVOTHYROXINE SODIUM 75 MCG TABLET PO SCH (05:51)
[2022-12-19] MEDS: ALBUT/IPRATROP 3MG/0.5MG NEB 3 ML VIAL NEB SCH ×3 (07:01→20:13)
[2022-12-19] MEDS: SUCRALFATE 1 GM/10 ML UDC PO SCH ×4 (10:38→20:55)
[2022-12-19] MEDS: CALCIUM ACETATE 667 MG CAP/TAB PO SCH ×3 (10:38→17:02)
--- NOTE | 2022-12-19 10:56 | Dialysis Progress Note ---
Date of Service December 19, 2022 Assessment & Plan Admission and Anticipated Discharge Date Admission Date: December 15, 2022 Subjective Subjective S----Seen During Dialysis today. No new issues. had Cancer directed XRT treatment earlier today. no SOB PHYSICAL EXAMINATION: GENERAL: A middle-aged white female, who appears chronically ill. She is very cachectic and only weighs 37 kilos. CHEST: Bilateral decreased breath sounds, prolonged expiratory wheezing. Occasional rhonchi bilaterally. CARDIOVASCULAR: S1 and S2, regular. ABDOMEN: Soft, nontender, slightly distended. EXTREMITIES: Show no edema. AV fistula is working fine. LABORATORY TEST: CT head and CT abdomen and pelvis was reviewed. She has a possible metastatic brain lesion as well as a large necrotic mass in the right hemidiaphragm. ASSESSMENT AND PLAN: A 62-year-old female with end-stage renal disease, end- stage lung disease and extremely cachectic and poor functional status. Now admitted with new onset seizure. The working diagnosis at this time is she has metastatic brain lesion causing seizure and also has a large mass in her right hemithorax. I have been consulted for dialysis management. 1. End-stage renal disease.Will do regular dialysis today and we will do it for 3 hours on a 2k bath and take about 2 to 2.5 kilo off. Her cardiopulmonary reserve is extremely poor and she easily goes into pulmonary edema. 2. Seizure episode. At this point, this is attributed to possible metastatic brain lesion.She has decided to do radiation Rx for this. Results & Data Vital Signs (Past 12 Hours) Vital Signs Temp Pulse Pulse Pulse Resp BP BP 12/19/22 10:30 77 125/57 L 12/19/22 10:00 92 H 136/61 12/19/22 09:30 77 124/59 L 12/19/22 09:15 83 138/65 12/19/22 09:05 36.8 C 86 12/19/22 08:09 36.3 C L 81 20 157/74 H 12/19/22 07:53 78 12/19/22 07:01 85 17 12/19/22 03:00 36.5 C 80 18 158/67 H Pulse Ox O2 Del Method O2 Flow Rate 12/19/22 10:30 12/19/22 10:00 12/19/22 09:30 12/19/22 09:15 12/19/22 09:05 12/19/22 08:09 100 Nasal Cannula 2 12/19/22 07:53 12/19/22 07:01 94 Nasal Cannula 12/19/22 03:00 100 Nasal Cannula 2
[2022-12-19] MEDS: FLUTICASONE/VILANTEROL 200/25MCG 14 PUFFS/INHALER INH SCH (13:02)
--- NOTE | 2022-12-19 16:41 | Hospitalist Progress Note ---
Date of Service December 19, 2022 Assessment & Plan (1) New onset seizure: Plan: Likely from increased intracranial pressure secondary to tumorigenic edema Likely brain mets secondary to probable recurrent lung malignancy with probable hepatic mets as well, past history radiation EEG has been normal Awaiting MRI of the brain without contrast Appreciate neurology input and recommendation We will continue Keppra to 250 mg Q6 hourly for now for seizure Decadron to decrease the edema Seizure precautions MRI of the head without contrast and CT of the head with contrast confirmed 1.5 cm enhancing lesion seen in the right high frontal lobe with significant surrounding edema She remains stable without any more episodes of seizure No more seizures-we will continue with the current medications Has had radiation treatment to the brain today-no more seizures Keppra has been reduced to 250 mg twice daily as per neurologist Palliative care encounter Appreciate palliative care input and recommendation Likely to need placement on discharge PT OT recommended home Likely discharge home tomorrow following first dose of radiation therapy in the brain Not yet decided whether she will be going home or needs to go to [facility]/personal long-term with hospice We will discuss with the family members tomorrow in detail Chronic diastolic heart failure, some congestion on CXR Remains stable Denies any cardiac symptoms No signs and or symptoms of fluid overload Hemoglobin dropped to 6.9 Likely secondary to ongoing cancer No evidence of bleeding Will give 1 unit of PRBC Hemoglobin went up to 10.1 following 1 unit of blood transfusion and the platelet remains low at 68 (2) Acute encephalopathy: Plan: Likely secondary to postictal status and is complicated by use of narcotic pain medication and anxiolytics Secondary to metastatic lesion in the brain with edema Acute encephalopathy is resolved (3) Metastasis to brain: Plan: 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 We will get MRI to evaluate the brain lesion better We cannot do any MRI with contrast due to complications and side effect as per tag maker Radiation oncology and Oncology consultations Re: Metastatic lung cancer Appreciate palliative care input and recommendation Repeat CT head with contrast confirmed metastatic disease with vasogenic edema in the brain as above Appreciate radiation oncology input Will have radiotherapy to shrink the metastatic tumor and edema Continue Decadron for now Will have radiation therapy tomorrow Has a radiation to the brain today and will continue as an outpatient (4) ESRD (end stage renal disease) on dialysis: Plan: Has been on dialysis for a while Has hyperkalemia and also increasing BUN and creatinine Bicarb and IV insulin for hyperkalemia Nephrology consultation Re: Dialysis management Appreciate nephrology input and recommendation We will continue dialysis-as an outpatient (5) COPD (chronic obstructive pulmonary disease): Plan: History of COPD and also non-small cell lung cancer of the lung Also interstitial disease in the lung is complicating COPD and shortness of breath Has chronic respiratory failure on oxygen (6) Nodular goiter: (7) Mass of right lung: Plan: History of non-small cell cancer of the lung (8) Non-small cell lung cancer (NSCLC): Plan: Right middle lobe bronchial biopsy confirmed adenocarcinoma in 20 17 (9) Interstitial lung disease: Plan Other medical conditions are as follows Left breast cancer sp surgery/chemoradiation Hypothyroidism, TSH slightly elevated Chronic anemia, hemoglobin at baseline Past tobacco abuse DVT prophylaxis. SCDs RE brain tumor DNR as per patient's daughter. Discussed with the family members Prognosis remains guarded Patient family requesting updates from providers. Ms. Yareli Grant (daughter), contact #[phone]. Mr. Danilo Grant (), contact # [phone]. Admission and Anticipated Discharge Date Admission Date: December 15, 2022 Subjective The patient was seen and examined in medical telemetry unit She has been complaining of generalized discomfort Denies any headache, blurred vision, any numbness and or tingling in the extremities Did not have any more seizure No fever and or chills but remains generally very weak and lethargic 12/16/2022 The patient was seen and examined in medical telemetry unit She remains very weak and lethargic and her condition has not changed since admission Did not have any more seizure since admission Denies any shortness of breath, pain, nausea and or vomiting 12/17/2022 The patient was seen and examined in medical telemetry unit in presence of the family members She has been weak and lethargic and her condition has not changed Remains generally weak and the hemoglobin noted to be low at 6.9 No more seizures 12/18/2022 The patient was seen and examined in medical telemetry unit She has been feeling a little better but is still has profound weakness She has had 2 episodes of small amount of blood in the sputum last evening and this morning No increasing shortness of breath 12/19/2022 The patient was seen and examined in medical telemetry unit She complains of weakness and tiredness Status post radiation treatment to the brain and status post dialysis Review of Systems Review of Systems: All systems reviewed and are unremarkable except as noted below Respiratory: Minimal shortness of breath at rest Neurologic: Generally very weak and lethargy Physical Exam Physical Exam: Lying in bed with some distress due to weakness and minimal shortness of breath Constitutional: + ill appearing and average body habitus Eyes: PERRL, conjunctivae normal, anicteric sclerae ENMT: external ear and nose normal, oropharynx normal Respiratory: no respiratory distress Auscultation: + diminished lung sounds and + crackles (Minimal crackles bibasally more on the right than the left) Cardiovascular: Rate/Rhythm: regular rate and regular rhythm; not tachycardic Heart Sounds: normal S1 and normal S2; no murmur Extremities: no edema Gastrointestinal (Abdomen): Inspection/Auscultation: normal bowel sounds; abdomen not distended Percussion/Palpation: + abdomen tender and abdomen soft Lymphatic: no cervical or axillary lymphadenopathy Results & Data Results & Data Vital Signs (Past 12 Hours) Vital Signs Temp Pulse Pulse Resp BP BP Pulse Ox 12/19/22 15:53 36.7 C 88 19 153/54 H 100 12/19/22 15:36 88 12/19/22 13:19 81 17 94 12/19/22 12:50 36.5 C 80 18 146/94 H 99 12/19/22 12:19 36.4 C L 68 154/42 H 12/19/22 12:00 80 112/50 L 12/19/22 11:30 79 121/55 L 12/19/22 11:11 12/19/22 11:00 71 131/56 L 12/19/22 10:30 77 125/57 L 12/19/22 10:00 92 H 136/61 12/19/22 09:30 77 124/59 L 12/19/22 09:15 83 138/65 12/19/22 09:05 36.8 C 86 12/19/22 08:09 36.3 C L 81 20 157/74 H 100 12/19/22 07:53 78 12/19/22 07:01 85 17 94 O2 Del Method O2 Flow Rate 12/19/22 15:53 Nasal Cannula 2 12/19/22 15:36 12/19/22 13:19 Nasal Cannula 2 12/19/22 12:50 Nasal Cannula 2 12/19/22 12:19 12/19/22 12:00 12/19/22 11:30 12/19/22 11:11 Nasal Cannula 2 12/19/22 11:00 12/19/22 10:30 12/19/22 10:00 12/19/22 09:30 12/19/22 09:15 12/19/22 09:05 12/19/22 08:09 Nasal Cannula 2 12/19/22 07:53 12/19/22 07:01 Nasal Cannula Medications Administered Current Inpatient Medications Acetaminophen (Acetaminophen 500 Mg Tab) 500 mg PO Q6H PRN PRN Reason: pain/fever Stop: 01/14/23 03:27 Last Admin: 12/16/22 19:42 Dose: 500 mg Albuterol (Albut/Ipratrop 3mg/0.5mg Neb 3 Ml Vial) 3 ml NEB TIDR KAVON; Protocol Stop: 01/17/23 20:59 Last Admin: 12/19/22 13:19 Dose: 3 ml Albuterol (Albut/Ipratrop 3mg/0.5mg Neb 3 Ml Vial) 3 ml NEB Q4R PRN; Protocol PRN Reason: Shortness Of Breath Or Wheezing Stop: 01/17/23 22:59 Calcium Acetate (Calcium Acetate 667 Mg Cap/Tab) 667 mg PO TIDM [facility] Stop: 01/15/23 11:59 Last Admin: 12/19/22 13:02 Dose: 667 mg Famotidine (Famotidine 20 Mg Tab) 20 mg PO HS [facility] Stop: 01/14/23 20:59 Last Admin: 12/18/22 20:39 Dose: 20 mg Fluticasone/Vilanterol (Fluticasone/Vilanterol 200/25mcg 14 Puffs/Inhaler) 1 puffs INH QAM [facility] Stop: 01/14/23 08:59 Last Admin: 12/19/22 13:02 Dose: 1 puffs Dexamethasone 4 mg/ Syringe 1 mls @ 1 mls/min IV Q6H [facility] Stop: 01/14/23 05:59 Last Admin: 12/19/22 13:27 Dose: 1 mls/min Promethazine HCl 6.25 mg/ (Sodium Chloride) 50.25 mls @ 201 mls/hr IV Q6H PRN PRN Reason: Nausea And Vomiting Stop: 01/14/23 03:27 Levetiracetam (Levetiracetam 250 Mg Tab) 250 mg PO BID [facility] Stop: 01/19/23 08:59 Levothyroxine Sodium (Levothyroxine Sodium 75 Mcg Tablet) 75 mcg PO DAILYBB [facility] Stop: 01/14/23 06:29 Last Admin: 12/19/22 05:51 Dose: 75 mcg Lorazepam (Lorazepam 2 Mg/1 Ml Vial) 1 mg IV Q10M PRN PRN Reason: seizures Stop: 01/14/23 03:27 Oxycodone HCl (Oxycodone Hcl Ir 5 Mg Tab (Immediate Release)) 5 mg PO Q2H PRN PRN Reason: Pain or dyspnea Stop: 12/30/22 16:59 Pantoprazole Sodium (Pantoprazole 40 Mg Tab) 40 mg PO DAILYBB [facility] Stop: 01/14/23 06:29 Last Admin: 12/19/22 05:51 Dose: 40 mg Simvastatin (Simvastatin 20 Mg Tab) 20 mg PO HS [facility] Stop: 01/14/23 20:59 Last Admin: 12/18/22 20:39 Dose: 20 mg Sucralfate (Sucralfate 1 Gm/10 Ml Udc) 1 gm PO ACHS [facility] Stop: 01/14/23 07:29 Last Admin: 12/19/22 13:02 Dose: 1 gm (5) COPD (chronic obstructive pulmonary disease) COPD type: COPD with acute exacerbation Qualified Code(s): J44.1 - Chronic obstructive pulmonary disease with (acute) exacerbation (8) Non-small cell lung cancer (NSCLC) Laterality: right Qualified Code(s): C34.91 - Malignant neoplasm of unspecifi ed part of right bronchus or lung
[2022-12-19] MEDS: FAMOTIDINE 20 MG TAB PO SCH (20:55)
[2022-12-19] MEDS: SIMVASTATIN 20 MG TAB PO SCH (22:36)
[2022-12-20] MEDS: PANTOprazole 40 MG TAB PO SCH (05:58)
[2022-12-20] MEDS: dexAMETHasone 4 MG in SYRINGE 0 ML IV SCH ×4 (05:58→23:31)
[2022-12-20] MEDS: LEVOTHYROXINE SODIUM 75 MCG TABLET PO SCH (05:58)
[2022-12-20] MEDS: ALBUT/IPRATROP 3MG/0.5MG NEB 3 ML VIAL NEB SCH ×3 (07:17→19:21)
[2022-12-20] MEDS: CALCIUM ACETATE 667 MG CAP/TAB PO SCH ×3 (08:45→16:58)
[2022-12-20] MEDS: FLUTICASONE/VILANTEROL 200/25MCG 14 PUFFS/INHALER INH SCH (08:45)
[2022-12-20] MEDS: SUCRALFATE 1 GM/10 ML UDC PO SCH ×4 (08:45→21:16)
[2022-12-20] MEDS: levETIRAcetam 250 MG TAB PO SCH ×2 (08:45→21:16)
--- NOTE | 2022-12-20 16:54 | Hospitalist Progress Note ---
Date of Service December 20, 2022 Assessment & Plan (1) New onset seizure: Plan: Likely from increased intracranial pressure secondary to tumorigenic edema Likely brain mets secondary to probable recurrent lung malignancy with probable hepatic mets as well, past history radiation EEG has been normal Awaiting MRI of the brain without contrast Appreciate neurology input and recommendation We will continue Keppra to 250 mg Q6 hourly for now for seizure Decadron to decrease the edema Seizure precautions MRI of the head without contrast and CT of the head with contrast confirmed 1.5 cm enhancing lesion seen in the right high frontal lobe with significant surrounding edema She remains stable without any more episodes of seizure No more seizures-we will continue with the current medications Has had radiation treatment to the brain today-no more seizures Keppra has been reduced to 250 mg twice daily as per neurologist No more seizures since admission-continue current management Palliative care encounter Appreciate palliative care input and recommendation Likely to need placement on discharge PT OT recommended home Likely discharge home tomorrow following first dose of radiation therapy in the brain Not yet decided whether she will be going home or needs to go to senior care/personal usp with hospice We will discuss with the family members tomorrow in detail Likely decision on Thursday about discharging her home or to facility Chronic diastolic heart failure, some congestion on CXR Remains stable Denies any cardiac symptoms No signs and or symptoms of fluid overload Remains stable Hemoglobin dropped to 6.9 Likely secondary to ongoing cancer No evidence of bleeding Will give 1 unit of PRBC Hemoglobin went up to 10.1 following 1 unit of blood transfusion and the platelet remains low at 68 (2) Acute encephalopathy: Plan: Likely secondary to postictal status and is complicated by use of narcotic pain medication and anxiolytics Secondary to metastatic lesion in the brain with edema Acute encephalopathy is resolved (3) Metastasis to brain: Plan: 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 We will get MRI to evaluate the brain lesion better We cannot do any MRI with contrast due to complications and side effect as per [employer] Radiation oncology and Oncology consultations Re: Metastatic lung cancer Appreciate palliative care input and recommendation Repeat CT head with contrast confirmed metastatic disease with vasogenic edema in the brain as above Appreciate radiation oncology input Will have radiotherapy to shrink the metastatic tumor and edema Continue Decadron for now Will have radiation therapy tomorrow Has a radiation to the brain today and will continue as an outpatient (4) ESRD (end stage renal disease) on dialysis: Plan: Has been on dialysis for a while Has hyperkalemia and also increasing BUN and creatinine Bicarb and IV insulin for hyperkalemia Nephrology consultation Re: Dialysis management Appreciate nephrology input and recommendation We will continue dialysis-as an outpatient (5) COPD (chronic obstructive pulmonary disease): Plan: History of COPD and also non-small cell lung cancer of the lung Also interstitial disease in the lung is complicating COPD and shortness of breath Has chronic respiratory failure on oxygen (6) Nodular goiter: (7) Mass of right lung: Plan: History of non-small cell cancer of the lung (8) Non-small cell lung cancer (NSCLC): Plan: Right middle lobe bronchial biopsy confirmed adenocarcinoma in 20 17 (9) Interstitial lung disease: Plan Other medical conditions are as follows Left breast cancer sp surgery/chemoradiation Hypothyroidism, TSH slightly elevated Chronic anemia, hemoglobin at baseline Past tobacco abuse DVT prophylaxis. SCDs RE brain tumor DNR as per patient's daughter. Discussed with the family members Prognosis remains guarded Patient family requesting updates from providers. Ms. Yareli Grant (daughter), contact #[phone]. Mr. Danilo Grant (), contact # [phone]. Discussed with the family members-possible discharge on Thursday Admission and Anticipated Discharge Date Admission Date: December 15, 2022 Subjective The patient was seen and examined in medical telemetry unit She has been complaining of generalized discomfort Denies any headache, blurred vision, any numbness and or tingling in the extremities Did not have any more seizure No fever and or chills but remains generally very weak and lethargic 12/16/2022 The patient was seen and examined in medical telemetry unit She remains very weak and lethargic and her condition has not changed since admission Did not have any more seizure since admission Denies any shortness of breath, pain, nausea and or vomiting 12/17/2022 The patient was seen and examined in medical telemetry unit in presence of the family members She has been weak and lethargic and her condition has not changed Remains generally weak and the hemoglobin noted to be low at 6.9 No more seizures 12/18/2022 The patient was seen and examined in medical telemetry unit She has been feeling a little better but is still has profound weakness She has had 2 episodes of small amount of blood in the sputum last evening and this morning No increasing shortness of breath 12/19/2022 The patient was seen and examined in medical telemetry unit She complains of weakness and tiredness Status post radiation treatment to the brain and status post dialysis 12/20/2022 The patient was seen and examined in medical telemetry unit She remains weak and lethargic Discussed with the family members for possible decision on Thursday about going home or to facility Review of Systems Review of Systems: All systems reviewed and are unremarkable except as noted below Respiratory: Minimal shortness of breath at rest Neurologic: Generally very weak and lethargy Physical Exam Physical Exam: Lying in bed with some distress due to weakness and minimal shortness of breath Constitutional: + ill appearing and average body habitus Eyes: PERRL, conjunctivae normal, anicteric sclerae ENMT: external ear and nose normal, oropharynx normal Respiratory: no respiratory distress Auscultation: + diminished lung sounds and + crackles (Minimal crackles bibasally more on the right than the left) Cardiovascular: Rate/Rhythm: regular rate and regular rhythm; not tachycardic Heart Sounds: normal S1 and normal S2; no murmur Extremities: no edema Gastrointestinal (Abdomen): Inspection/Auscultation: normal bowel sounds; abdomen not distended Percussion/Palpation: + abdomen tender and abdomen soft Lymphatic: no cervical or axillary lymphadenopathy Results & Data Results & Data Vital Signs (Past 12 Hours) Vital Signs Temp Pulse Pulse Pulse Resp BP Pulse Ox 12/20/22 16:30 88 12/20/22 15:39 36.9 C 84 20 162/61 H 95 12/20/22 08:45 12/20/22 11:30 36.9 C 83 19 164/62 H 100 12/20/22 11:08 97 H 18 98 12/20/22 08:01 37 C 83 18 160/66 H 98 12/20/22 07:17 82 16 99 12/20/22 07:16 83 O2 Del Method O2 Flow Rate 12/20/22 16:30 12/20/22 15:39 Nasal Cannula 2 12/20/22 08:45 Nasal Cannula 2 12/20/22 11:30 Nasal Cannula 2 12/20/22 11:08 Nasal Cannula 2 12/20/22 08:01 Nasal Cannula 2 12/20/22 07:17 Nasal Cannula 2 12/20/22 07:16 Medications Administered Current Inpatient Medications Acetaminophen (Acetaminophen 500 Mg Tab) 500 mg PO Q6H PRN PRN Reason: pain/fever Stop: 01/14/23 03:27 Last Admin: 12/16/22 19:42 Dose: 500 mg Albuterol (Albut/Ipratrop 3mg/0.5mg Neb 3 Ml Vial) 3 ml NEB TIDR [facility]; Protocol Stop: 01/17/23 20:59 Last Admin: 12/20/22 11:08 Dose: 3 ml Albuterol (Albut/Ipratrop 3mg/0.5mg Neb 3 Ml Vial) 3 ml NEB Q4R PRN; Protocol PRN Reason: Shortness Of Breath Or Wheezing Stop: 01/17/23 22:59 Calcium Acetate (Calcium Acetate 667 Mg Cap/Tab) 667 mg PO TIDM [facility] Stop: 01/15/23 11:59 Last Admin: 12/20/22 12:56 Dose: 667 mg Famotidine (Famotidine 20 Mg Tab) 20 mg PO HS [facility] Stop: 01/14/23 20:59 Last Admin: 12/19/22 20:55 Dose: 20 mg Fluticasone/Vilanterol (Fluticasone/Vilanterol 200/25mcg 14 Puffs/Inhaler) 1 puffs INH QAM [facility] Stop: 01/14/23 08:59 Last Admin: 12/20/22 08:45 Dose: 1 puffs Dexamethasone 4 mg/ Syringe 1 mls @ 1 mls/min IV Q6H [facility] Stop: 01/14/23 05:59 Last Admin: 12/20/22 12:56 Dose: 1 mls/min Promethazine HCl 6.25 mg/ (Sodium Chloride) 50.25 mls @ 201 mls/hr IV Q6H PRN PRN Reason: Nausea And Vomiting Stop: 01/14/23 03:27 Levetiracetam (Levetiracetam 250 Mg Tab) 250 mg PO BID [facility] Stop: 01/19/23 08:59 Last Admin: 12/20/22 08:45 Dose: 250 mg Levothyroxine Sodium (Levothyroxine Sodium 75 Mcg Tablet) 75 mcg PO DAILYBB [facility] Stop: 01/14/23 06:29 Last Admin: 12/20/22 05:58 Dose: 75 mcg Lorazepam (Lorazepam 2 Mg/1 Ml Vial) 1 mg IV Q10M PRN PRN Reason: seizures Stop: 01/14/23 03:27 Oxycodone HCl (Oxycodone Hcl Ir 5 Mg Tab (Immediate Release)) 5 mg PO Q2H PRN PRN Reason: Pain or dyspnea Stop: 12/30/22 16:59 Pantoprazole Sodium (Pantoprazole 40 Mg Tab) 40 mg PO DAILYBB [facility] Stop: 01/14/23 06:29 Last Admin: 12/20/22 05:58 Dose: 40 mg Simvastatin (Simvastatin 20 Mg Tab) 20 mg PO HS [facility] Stop: 01/14/23 20:59 Last Admin: 12/19/22 22:36 Dose: 20 mg Sucralfate (Sucralfate 1 Gm/10 Ml Udc) 1 gm PO ACHS [facility] Stop: 01/14/23 07:29 Last Admin: 12/20/22 12:56 Dose: 1 gm (5) COPD (chronic obstructive pulmonary disease) COPD type: COPD with acute exacerbation Qualified Code(s): J44.1 - Chronic obstructive pulmonary disease with (acute) exacerbation (8) Non-small cell lung cancer (NSCLC) Laterality: right Qualified Code(s): C34.91 - Malignant neoplasm of unspecified part of right bronchus or lung
[2022-12-20] MEDS: SIMVASTATIN 20 MG TAB PO SCH (21:16)
[2022-12-20] MEDS: FAMOTIDINE 20 MG TAB PO SCH (21:17)
[2022-12-21] MEDS: PANTOprazole 40 MG TAB PO SCH (06:06)
[2022-12-21] MEDS: LEVOTHYROXINE SODIUM 75 MCG TABLET PO SCH (06:06)
[2022-12-21] MEDS: dexAMETHasone 4 MG in SYRINGE 0 ML IV SCH ×4 (06:07→23:35)
[2022-12-21 06:16] LABS: Hemoglobin 8.7 g/dl (12.0-16.0); Mean Corpuscular Hemoglobin 26.8 pg (25.0-34.0); Mean Corpuscular Hgb Conc 31.1 g/dL (32.0-36.0); Mean Corpuscular Volume 86.2 fL (80.0-100.0); Mean Platelet Volume 11.6 fL (9.4-12.4); Platelet Count 58 K/uL (130-400); RDW Coefficient of Variation 18.3 % (11.5-14.5); RDW Standard Deviation 56.8 fL (36.4-46.3); Red Blood Count 3.25 M/uL (4.20-5.40); White Blood Count 6.43 K/ul (4.8-10.8)
[2022-12-21 06:35] LABS: BUN Creatinine Ratio 14.5 (10-20); Calcium 7.7 mg/dl (8.6-10.3); Creatinine Clr Calc Pharmacy 7.5 ml/min; Est GFR (African American) 9.4 ml/min; Est GFR (Non-African American) 8.1 ml/min; Potassium 4.8 mmol/L (3.5-5.1)
[2022-12-21 06:43] LABS: Basophilic Stippling 1+; Basophils # (auto) 0.02 K/uL (0-0.2); Basophils % (auto) 0.3 %; Immature Granulocytes # (auto) 0.37 K/uL (0.01-0.20); Immature Granulocytes % (auto) 5.8 %; Lymphocytes # (auto) 0.07 K/uL (1.2-3.4); Lymphocytes % (auto) 1.1 %; Monocytes # (auto) 0.24 K/uL (0.11-0.59); Monocytes % (auto) 3.7 %; Neutrophils # (auto) 5.73 K/uL (1.40-6.50); Neutrophils % (auto) 89.1 %
[2022-12-21] MEDS: ALBUT/IPRATROP 3MG/0.5MG NEB 3 ML VIAL NEB SCH ×3 (07:08→20:39)
[2022-12-21] MEDS: FLUTICASONE/VILANTEROL 200/25MCG 14 PUFFS/INHALER INH SCH (08:35)
[2022-12-21] MEDS: SUCRALFATE 1 GM/10 ML UDC PO SCH ×4 (08:35→20:14)
[2022-12-21] MEDS: CALCIUM ACETATE 667 MG CAP/TAB PO SCH ×3 (08:36→16:51)
[2022-12-21] MEDS: levETIRAcetam 250 MG TAB PO SCH ×2 (08:36→20:14)
--- NOTE | 2022-12-21 13:19 | Hospitalist Progress Note ---
Date of Service December 21, 2022 Assessment & Plan (1) New onset seizure: Plan: Likely from increased intracranial pressure secondary to tumorigenic edema Likely brain mets secondary to probable recurrent lung malignancy with probable hepatic mets as well, past history radiation EEG has been normal Awaiting MRI of the brain without contrast Appreciate neurology input and recommendation We will continue Keppra to 250 mg Q6 hourly for now for seizure Decadron to decrease the edema Seizure precautions MRI of the head without contrast and CT of the head with contrast confirmed 1.5 cm enhancing lesion seen in the right high frontal lobe with significant surrounding edema She remains stable without any more episodes of seizure No more seizures-we will continue with the current medications Has had radiation treatment to the brain today-no more seizures Keppra has been reduced to 250 mg twice daily as per neurologist Remains stable Palliative care encounter Appreciate palliative care input and recommendation Likely to need placement on discharge PT OT recommended home Likely discharge home tomorrow following first dose of radiation therapy in the brain Not yet decided whether she will be going home or needs to go to halfway/personal longterm with hospice We will discuss with the family members tomorrow in detail Likely decision on Thursday about discharging her home or to facility Chronic diastolic heart failure, some congestion on CXR Remains stable Denies any cardiac symptoms No signs and or symptoms of fluid overload Denies any shortness of breath and/or increasing edema Hemoglobin dropped to 6.9 Likely secondary to ongoing cancer No evidence of bleeding Will give 1 unit of PRBC Hemoglobin went up to 10.1 following 1 unit of blood transfusion and the platelet remains low at 68 (2) Acute encephalopathy: Plan: Likely secondary to postictal status and is complicated by use of narcotic pain medication and anxiolytics Secondary to metastatic lesion in the brain with edema Acute encephalopathy is resolved (3) Metastasis to brain: Plan: 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 We will get MRI to evaluate the brain lesion better We cannot do any MRI with contrast due to complications and side effect as per [employer] Radiation oncology and Oncology consultations Re: Metastatic lung cancer Appreciate palliative care input and recommendation Repeat CT head with contrast confirmed metastatic disease with vasogenic edema in the brain as above Appreciate radiation oncology input Will have radiotherapy to shrink the metastatic tumor and edema Continue Decadron for now We will discussed with radiation oncology about the schedule of further radiation (4) ESRD (end stage renal disease) on dialysis: Plan: Has been on dialysis for a while Has hyperkalemia and also increasing BUN and creatinine Bicarb and IV insulin for hyperkalemia Nephrology consultation Re: Dialysis management Appreciate nephrology input and recommendation We will continue dialysis-as an outpatient (5) COPD (chronic obstructive pulmonary disease): Plan: History of COPD and also non-small cell lung cancer of the lung Also interstitial disease in the lung is complicating COPD and shortness of breath Has chronic respiratory failure on oxygen (6) Nodular goiter: (7) Mass of right lung: Plan: History of non-small cell cancer of the lung (8) Non-small cell lung cancer (NSCLC): Plan: Right middle lobe bronchial biopsy confirmed adenocarcinoma in 20 17 (9) Interstitial lung disease: Plan Other medical conditions are as follows Left breast cancer sp surgery/chemoradiation Hypothyroidism, TSH slightly elevated Chronic anemia, hemoglobin at baseline Past tobacco abuse DVT prophylaxis. SCDs RE brain tumor DNR as per patient's daughter. Discussed with the family members Prognosis remains guarded Patient family requesting updates from providers. Ms. Yareli Grant (daughter), contact #[phone]. Mr. Danilo Grant (), contact # [phone]. Discussed with the family members-possible discharge on Thursday Admission and Anticipated Discharge Date Admission Date: December 15, 2022 Subjective The patient was seen and examined in medical telemetry unit She has been complaining of generalized discomfort Denies any headache, blurred vision, any numbness and or tingling in the extremities Did not have any more seizure No fever and or chills but remains generally very weak and lethargic 12/16/2022 The patient was seen and examined in medical telemetry unit She remains very weak and lethargic and her condition has not changed since admission Did not have any more seizure since admission Denies any shortness of breath, pain, nausea and or vomiting 12/17/2022 The patient was seen and examined in medical telemetry unit in presence of the family members She has been weak and lethargic and her condition has not changed Remains generally weak and the hemoglobin noted to be low at 6.9 No more seizures 12/18/2022 The patient was seen and examined in medical telemetry unit She has been feeling a little better but is still has profound weakness She has had 2 episodes of small amount of blood in the sputum last evening and this morning No increasing shortness of breath 12/19/2022 The patient was seen and examined in medical telemetry unit She complains of weakness and tiredness Status post radiation treatment to the brain and status post dialysis 12/20/2022 The patient was seen and examined in medical telemetry unit She remains weak and lethargic Discussed with the family members for possible decision on Thursday about going home or to facility 12/21/2022 The patient was seen and examined in medical telemetry unit She remains weak and lethargic but is out of bed on a chair today Abdomen is slightly distended but has had bowel movement Complained to have some nausea Review of Systems Review of Systems: All systems reviewed and are unremarkable except as noted below Respiratory: Minimal shortness of breath at rest Neurologic: Generally very weak and lethargy Physical Exam Physical Exam: Lying in bed with some distress due to weakness and minimal shortness of breath Constitutional: + ill appearing and average body habitus Eyes: PERRL, conjunctivae normal, anicteric sclerae ENMT: external ear and nose normal, oropharynx normal Respiratory: no respiratory distress Auscultation: + diminished lung sounds and + crackles (Minimal crackles bibasally more on the right than the left) Cardiovascular: Rate/Rhythm: regular rate and regular rhythm; not tachycardic Heart Sounds: normal S1 and normal S2; no murmur Extremities: no edema Gastrointestinal (Abdomen): Inspection/Auscultation: + abdomen distended and normal bowel sounds Percussion/Palpation: + abdomen tender and abdomen soft Musculoskeletal: No acute arthritis involving any of the joint Neurologic: Alert, awake and oriented x3. Generally very weak and lethargic Lymphatic: no cervical or axillary lymphadenopathy Results & Data Results & Data Vital Signs (Past 12 Hours) Vital Signs Temp Pulse Pulse Pulse Resp BP Pulse Ox 12/21/22 12:32 85 22 99 12/21/22 11:39 12/21/22 11:07 36.7 C 78 20 155/60 H 100 12/21/22 07:19 36.6 C 86 16 117/67 92 12/21/22 07:24 12/21/22 06:17 77 12/21/22 07:09 95 H 16 99 12/21/22 03:22 36.6 C 86 20 167/70 H 99 12/21/22 01:40 86 Pulse Ox O2 Del Method O2 Flow Rate O2 Flow Rate 12/21/22 12:32 Nasal Cannula 2 12/21/22 11:39 99 2 12/21/22 11:07 Nasal Cannula 2 12/21/22 07:19 Nasal Cannula 2 12/21/22 07:24 Nasal Cannula 2 12/21/22 06:17 12/21/22 07:09 Nasal Cannula 2 12/21/22 03:22 Nasal Cannula 2 12/21/22 01:40 Laboratory Results Short CBC 12/21/22 Range/Units 05:37 WBC 6.43 (4.8-10.8) K/ul Hgb 8.7 L (12.0-16.0) g/dl Hct 28.0 L (37.0-47.0) % Plt Count 58 L (130-400) K/uL BMP 12/21/22 05:37 Sodium 134 L Potassium 4.8 Chloride 100 Carbon Dioxide 19 L BUN 76 H Creatinine 5.25 H* Glucose 218 H Calcium 7.7 L Medications Administered Current Inpatient Medications Acetaminophen (Acetaminophen 500 Mg Tab) 500 mg PO Q6H PRN PRN Reason: pain/fever Stop: 01/14/23 03:27 Last Admin: 12/16/22 19:42 Dose: 500 mg Albuterol (Albut/Ipratrop 3mg/0.5mg Neb 3 Ml Vial) 3 ml NEB TIDR [facility]; Protocol Stop: 01/17/23 20:59 Last Admin: 12/21/22 12:32 Dose: 3 ml Albuterol (Albut/Ipratrop 3mg/0.5mg Neb 3 Ml Vial) 3 ml NEB Q4R PRN; Protocol PRN Reason: Shortness Of Breath Or Wheezing Stop: 01/17/23 22:59 Calcium Acetate (Calcium Acetate 667 Mg Cap/Tab) 667 mg PO TIDM [facility] Stop: 01/15/23 11:59 Last Admin: 12/21/22 12:48 Dose: 667 mg Famotidine (Famotidine 20 Mg Tab) 20 mg PO HS [facility] Stop: 01/14/23 20:59 Last Admin: 12/20/22 21:17 Dose: 20 mg Fluticasone/Vilanterol (Fluticasone/Vilanterol 200/25mcg 14 Puffs/Inhaler) 1 puffs INH QAM [facility] Stop: 01/14/23 08:59 Last Admin: 12/21/22 08:35 Dose: 1 puffs Dexamethasone 4 mg/ Syringe 1 mls @ 1 mls/min IV Q6H [facility] Stop: 01/14/23 05:59 Last Admin: 12/21/22 12:48 Dose: 1 mls/min Promethazine HCl 6.25 mg/ (Sodium Chloride) 50.25 mls @ 201 mls/hr IV Q6H PRN PRN Reason: Nausea And Vomiting Stop: 01/14/23 03:27 Levetiracetam (Levetiracetam 250 Mg Tab) 250 mg PO BID [facility] Stop: 01/19/23 08:59 Last Admin: 12/21/22 08:36 Dose: 250 mg Levothyroxine Sodium (Levothyroxine Sodium 75 Mcg Tablet) 75 mcg PO DAILYBB [facility] Stop: 01/14/23 06:29 Last Admin: 12/21/22 06:06 Dose: 75 mcg Lorazepam (Lorazepam 2 Mg/1 Ml Vial) 1 mg IV Q10M PRN PRN Reason: seizures Stop: 01/14/23 03:27 Oxycodone HCl (Oxycodone Hcl Ir 5 Mg Tab (Immediate Release)) 5 mg PO Q2H PRN PRN Reason: Pain or dyspnea Stop: 12/30/22 16:59 Pantoprazole Sodium (Pantoprazole 40 Mg Tab) 40 mg PO DAILYBB [facility] Stop: 01/14/23 06:29 Last Admin: 12/21/22 06:06 Dose: 40 mg Simvastatin (Simvastatin 20 Mg Tab) 20 mg PO HS [facility] Stop: 01/14/23 20:59 Last Admin: 12/20/22 21:16 Dose: 20 mg Sucralfate (Sucralfate 1 Gm/10 Ml Udc) 1 gm PO ACHS [facility] Stop: 01/14/23 07:29 Last Admin: 12/21/22 12:48 Dose: 1 gm (5) COPD (chronic obstructive pulmonary disease) COPD type: COPD with acute exacerbation Qualified Code(s): J44.1 - Chronic obstructive pulmonary disease with (acute) exacerbation (8) Non-small cell lung cancer (NSCLC) Laterality: right Qualified Code(s): C34.91 - Malignant neoplasm of unspecified part of right bronchus or lung
[2022-12-21] MEDS: CARBAMIDE PEROXIDE 6.5% 15 ML BTL OT SCH (20:14)
[2022-12-21] MEDS: FAMOTIDINE 20 MG TAB PO SCH (20:14)
[2022-12-21] MEDS: SIMVASTATIN 20 MG TAB PO SCH (20:14)
[2022-12-22] MEDS: LEVOTHYROXINE SODIUM 75 MCG TABLET PO SCH (06:01)
[2022-12-22] MEDS: PANTOprazole 40 MG TAB PO SCH (06:01)
[2022-12-22] MEDS: dexAMETHasone 4 MG in SYRINGE 0 ML IV SCH ×3 (06:31→18:34)
[2022-12-22] MEDS: ALBUT/IPRATROP 3MG/0.5MG NEB 3 ML VIAL NEB SCH ×3 (06:55→19:59)
[2022-12-22] MEDS ORDERED: SODIUM CHLORIDE 0.9% 1000ML 1,000 ML IV PRN ×2 (07:00→07:57)
[2022-12-22] MEDS: CARBAMIDE PEROXIDE 6.5% 15 ML BTL OT SCH ×2 (08:53→20:40)
[2022-12-22] MEDS: FLUTICASONE/VILANTEROL 200/25MCG 14 PUFFS/INHALER INH SCH (08:53)
[2022-12-22] MEDS: CALCIUM ACETATE 667 MG CAP/TAB PO SCH ×3 (08:54→15:52)
[2022-12-22] MEDS: levETIRAcetam 250 MG TAB PO SCH ×2 (08:54→20:41)
[2022-12-22] MEDS: SUCRALFATE 1 GM/10 ML UDC PO SCH ×4 (08:54→20:41)
--- NOTE | 2022-12-22 15:06 | Hospitalist Progress Note ---
Date of Service December 22, 2022 Assessment & Plan (1) New onset seizure: Plan: Likely from increased intracranial pressure secondary to tumorigenic edema Likely brain mets secondary to probable recurrent lung malignancy with probable hepatic mets as well, past history radiation EEG has been normal Awaiting MRI of the brain without contrast Appreciate neurology input and recommendation We will continue Keppra to 250 mg Q6 hourly for now for seizure Decadron to decrease the edema Seizure precautions MRI of the head without contrast and CT of the head with contrast confirmed 1.5 cm enhancing lesion seen in the right high frontal lobe with significant surrounding edema She remains stable without any more episodes of seizure No more seizures-we will continue with the current medications Has had radiation treatment to the brain today-no more seizures Keppra has been reduced to 250 mg twice daily as per neurologist Remains free of any seizures Palliative care encounter Appreciate palliative care input and recommendation Likely to need placement on discharge PT OT recommended home Likely discharge home tomorrow following first dose of radiation therapy in the brain Not yet decided whether she will be going home or needs to go to halfway/personal snf with hospice We will discuss with the family members tomorrow in detail Likely decision on Thursday about discharging her home or to facility Chronic diastolic heart failure, some congestion on CXR Remains stable Denies any cardiac symptoms No signs and or symptoms of fluid overload Denies any shortness of breath and/or increasing edema Hemoglobin dropped to 6.9 Likely secondary to ongoing cancer No evidence of bleeding Will give 1 unit of PRBC Hemoglobin went up to 10.1 following 1 unit of blood transfusion and the platelet remains low at 68 We will check labs tomorrow again (2) Acute encephalopathy: Plan: Likely secondary to postictal status and is complicated by use of narcotic pain medication and anxiolytics Secondary to metastatic lesion in the brain with edema Acute encephalopathy is resolved (3) Metastasis to brain: Plan: 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 We will get MRI to evaluate the brain lesion better We cannot do any MRI with contrast due to complications and side effect as per development administrator Radiation oncology and Oncology consultations Re: Metastatic lung cancer Appreciate palliative care input and recommendation Repeat CT head with contrast confirmed metastatic disease with vasogenic edema in the brain as above Appreciate radiation oncology input Will have radiotherapy to shrink the metastatic tumor and edema Continue Decadron for now We will discussed with radiation oncology about the schedule of further radiation Discussed with Dr. Leslie-Will need 3 total treatment every other day which can be done as an inpatient or outpatient (4) ESRD (end stage renal disease) on dialysis: Plan: Has been on dialysis for a while Has hyperkalemia and also increasing BUN and creatinine Bicarb and IV insulin for hyperkalemia Nephrology consultation Re: Dialysis management Appreciate nephrology input and recommendation We will continue dialysis-as an outpatient-we will have dialysis today (5) COPD (chronic obstructive pulmonary disease): Plan: History of COPD and also non-small cell lung cancer of the lung Also interstitial disease in the lung is complicating COPD and shortness of breath Has chronic respiratory failure on oxygen (6) Nodular goiter: (7) Mass of right lung: Plan: History of non-small cell cancer of the lung (8) Non-small cell lung cancer (NSCLC): Plan: Right middle lobe bronchial biopsy confirmed adenocarcinoma in 20 17 (9) Interstitial lung disease: Plan Other medical conditions are as follows Left breast cancer sp surgery/chemoradiation Hypothyroidism, TSH slightly elevated Chronic anemia, hemoglobin at baseline Past tobacco abuse DVT prophylaxis. SCDs RE brain tumor DNR as per patient's daughter. Discussed with the family members Prognosis remains guarded Patient family requesting updates from providers. Ms. Yareli Grant (daughter), contact #[phone]. Mr. Danilo Grant (), contact # [phone]. Discussed with the family members-possible discharge on Thursday Admission and Anticipated Discharge Date Admission Date: December 15, 2022 Subjective The patient was seen and examined in medical telemetry unit She has been complaining of generalized discomfort Denies any headache, blurred vision, any numbness and or tingling in the extremities Did not have any more seizure No fever and or chills but remains generally very weak and lethargic 12/16/2022 The patient was seen and examined in medical telemetry unit She remains very weak and lethargic and her condition has not changed since admission Did not have any more seizure since admission Denies any shortness of breath, pain, nausea and or vomiting 12/17/2022 The patient was seen and examined in medical telemetry unit in presence of the family members She has been weak and lethargic and her condition has not changed Remains generally weak and the hemoglobin noted to be low at 6.9 No more seizures 12/18/2022 The patient was seen and examined in medical telemetry unit She has been feeling a little better but is still has profound weakness She has had 2 episodes of small amount of blood in the sputum last evening and this morning No increasing shortness of breath 12/19/2022 The patient was seen and examined in medical telemetry unit She complains of weakness and tiredness Status post radiation treatment to the brain and status post dialysis 12/20/2022 The patient was seen and examined in medical telemetry unit She remains weak and lethargic Discussed with the family members for possible decision on Thursday about going home or to facility 12/21/2022 The patient was seen and examined in medical telemetry unit She remains weak and lethargic but is out of bed on a chair today Abdomen is slightly distended but has had bowel movement Complained to have some nausea 12/22/2022 The patient was seen and examined in medical telemetry unit She has been stable and remains weak and lethargic Will have radiation treatment as per radiation therapist but not yet scheduled The family members and the patient will decide disposition Review of Systems Review of Systems: All systems reviewed and are unremarkable except as noted below Respiratory: Minimal shortness of breath at rest Neurologic: Generally very weak and lethargy Physical Exam Physical Exam: Lying in bed with some distress due to weakness and minimal shortness of breath Constitutional: + ill appearing and average body habitus Eyes: PERRL, conjunctivae normal, anicteric sclerae ENMT: external ear and nose normal, oropharynx normal Respiratory: no respiratory distress Auscultation: + diminished lung sounds and + crackles (Minimal crackles bibasally more on the right than the left) Cardiovascular: Rate/Rhythm: regular rate and regular rhythm; not tachycardic Heart Sounds: normal S1 and normal S2; no murmur Extremities: no edema Gastrointestinal (Abdomen): Inspection/Auscultation: + abdomen distended and normal bowel sounds Percussion/Palpation: + abdomen tender and abdomen soft Musculoskeletal: Generally weak and lethargic Neurologic: Alert, awake and oriented x3. Generally very weak and lethargic Lymphatic: no cervical or axillary lymphadenopathy Results & Data Results & Data Vital Signs (Past 12 Hours) Vital Signs Temp Pulse Pulse Pulse Resp BP Pulse Ox 12/22/22 14:23 86 12/22/22 14:39 36.6 C 81 18 161/69 H 100 12/22/22 11:20 36.5 C 88 18 154/63 H 98 12/22/22 08:00 12/22/22 08:03 36.6 C 93 H 18 172/70 H 100 12/22/22 07:27 84 18 99 12/22/22 06:02 79 12/22/22 03:13 36.5 C 87 20 168/62 H 95 O2 Del Method O2 Flow Rate 12/22/22 14:23 12/22/22 14:39 Nasal Cannula 2 12/22/22 11:20 Nasal Cannula 2 12/22/22 08:00 Nasal Cannula 2 12/22/22 08:03 Nasal Cannula 2 12/22/22 07:27 Nasal Cannula 2 12/22/22 06:02 12/22/22 03:13 Nasal Cannula 2 Diagnostic Findings Current Inpatient Medications Acetaminophen (Acetaminophen 500 Mg Tab) 500 mg PO Q6H PRN PRN Reason: pain/fever Stop: 01/14/23 03:27 Last Admin: 12/16/22 19:42 Dose: 500 mg Albuterol (Albut/Ipratrop 3mg/0.5mg Neb 3 Ml Vial) 3 ml NEB TIDR KAVON; Protocol Stop: 01/17/23 20:59 Last Admin: 12/22/22 13:46 Dose: 3 ml Albuterol (Albut/Ipratrop 3mg/0.5mg Neb 3 Ml Vial) 3 ml NEB Q4R PRN; Protocol PRN Reason: Shortness Of Breath Or Wheezing Stop: 01/17/23 22:59 Calcium Acetate (Calcium Acetate 667 Mg Cap/Tab) 667 mg PO TIDM KAVON Stop: 01/15/23 11:59 Last Admin: 12/22/22 11:26 Dose: 667 mg Carbamide Peroxide (Carbamide Peroxide 6.5% 15 Ml Btl) 2 drops OT BID KAVON Stop: 12/25/22 20:59 Last Admin: 12/22/22 08:53 Dose: 2 drops Famotidine (Famotidine 20 Mg Tab) 20 mg PO HS KAVON Stop: 01/14/23 20:59 Last Admin: 12/21/22 20:14 Dose: 20 mg Fluticasone/Vilanterol (Fluticasone/Vilanterol 200/25mcg 14 Puffs/Inhaler) 1 pu ffs INH QAM KAVON Stop: 01/14/23 08:59 Last Admin: 12/22/22 08:53 Dose: 1 puffs Dexamethasone 4 mg/ Syringe 1 mls @ 1 mls/min IV Q6H KAVON Stop: 01/14/23 05:59 Last Admin: 12/22/22 11:26 Dose: 1 mls/min Promethazine HCl 6.25 mg/ (Sodium Chloride) 50.25 mls @ 201 mls/hr IV Q6H PRN PRN Reason: Nausea And Vomiting Stop: 01/14/23 03:27 Levetiracetam (Levetiracetam 250 Mg Tab) 250 mg PO BID [facility] Stop: 01/19/23 08:59 Last Admin: 12/22/22 08:54 Dose: 250 mg Levothyroxine Sodium (Levothyroxine Sodium 75 Mcg Tablet) 75 mcg PO DAILYBB [facility] Stop: 01/14/23 06:29 Last Admin: 12/22/22 06:01 Dose: 75 mcg Lorazepam (Lorazepam 2 Mg/1 Ml Vial) 1 mg IV Q10M PRN PRN Reason: seizures Stop: 01/14/23 03:27 Oxycodone HCl (Oxycodone Hcl Ir 5 Mg Tab (Immediate Release)) 5 mg PO Q2H PRN PRN Reason: Pain or dyspnea Stop: 12/30/22 16:59 Pantoprazole Sodium (Pantoprazole 40 Mg Tab) 40 mg PO DAILYBB [facility] Stop: 01/14/23 06:29 Last Admin: 12/22/22 06:01 Dose: 40 mg Simvastatin (Simvastatin 20 Mg Tab) 20 mg PO HS [facility] Stop: 01/14/23 20:59 Last Admin: 12/21/22 20:14 Dose: 20 mg Sucralfate (Sucralfate 1 Gm/10 Ml Udc) 1 gm PO ACHS [facility] Stop: 01/14/23 07:29 Last Admin: 12/22/22 11:25 Dose: 1 gm (5) COPD (chronic obstructive pulmonary disease) COPD type: COPD with acute exacerbation Qualified Code(s): J44.1 - Chronic obstructive pulmonary disease with (acute) exacerbation (8) Non-small cell lung cancer (NSCLC) Laterality: right Qualified Code(s): C34.91 - Malignant neoplasm of unspecified part of right bronchus or lung
--- NOTE | 2022-12-22 16:21 | Nephrology Progress Note ---
Date of Service December 22, 2022 Assessment & Plan (1) ESRD (end stage renal disease) on dialysis: Plan: on MWF HD > -for routine treatment today w/ goal UF 2.5L; pt is still quite prone to pulmonary edema and will continue supportive HD -next HD for 12/24 or as needs dictate -no indication for GRACIE today; will verify w/ her OP composing room machinist whether ESAs are used in her care as OP Admission and Anticipated Discharge Date Admission Date: December 15, 2022 Subjective seen in rounds early afternoon > slightly increased WOB (seen prior to dialysis) w/o distress. no uncontrolled pain; wondering when next XRT is Review of Systems Review of Systems: All systems reviewed & are unremarkable except as noted in Subjective Physical Exam Constitutional: well developed, + cachectic, + frail appearing and cooperative; no acute distress Eyes: EOM intact bilaterally ENMT: Ears: no external ear abnormality Nose: no external nose abnormality Mouth: + dry oral mucous membranes Neck: no nuchal rigidity Respiratory: normal respiratory effort Auscultation: + diminished lung sounds Cardiovascular: RRR, no murmur, no edema Extremities: + AV fistula Gastrointestinal (Abdomen): Inspection/Auscultation: + abdomen distended and normal bowel sounds Percussion/Palpation: abdomen soft; abdomen nontender Musculoskeletal: Extremities: strength 5/5 throughout Skin: no rashes, warm and dry Neurologic: yao, fluent speech, no tremor Psychiatric: Orientation: alert and oriented x 3 Results & Data Vital Signs (Past 12 Hours) Vital Signs Temp Pulse Pulse Resp BP Pulse Ox O2 Del Method 12/22/22 14:23 86 12/22/22 14:39 36.6 C 81 18 161/69 H 100 Nasal Cannula 12/22/22 11:20 36.5 C 88 18 154/63 H 98 Nasal Cannula 12/22/22 08:00 Nasal Cannula 12/22/22 08:03 36.6 C 93 H 18 172/70 H 100 Nasal Cannula 12/22/22 07:27 84 18 99 Nasal Cannula 12/22/22 06:02 79 O2 Flow Rate 12/22/22 14:23 12/22/22 14:39 2 12/22/22 11:20 2 12/22/22 08:00 2 12/22/22 08:03 2 12/22/22 07:27 2 12/22/22 06:02 Laboratory Results 12/21/22 05:37 12/21/22 05:37
[2022-12-22] MEDS: FAMOTIDINE 20 MG TAB PO SCH (20:41)
[2022-12-22] MEDS: SIMVASTATIN 20 MG TAB PO SCH (20:41)
[2022-12-23] MEDS: dexAMETHasone 4 MG in SYRINGE 0 ML IV SCH ×5 (00:04→23:54)
[2022-12-23] MEDS: PANTOprazole 40 MG TAB PO SCH (06:05)
[2022-12-23] MEDS: LEVOTHYROXINE SODIUM 75 MCG TABLET PO SCH (06:05)
[2022-12-23 06:24] LABS: Hematocrit (blood only) 27.5 % (37.0-47.0); Hemoglobin 8.6 g/dl (12.0-16.0); Mean Corpuscular Hemoglobin 27.1 pg (25.0-34.0); Mean Corpuscular Hgb Conc 31.3 g/dL (32.0-36.0); Mean Corpuscular Volume 86.8 fL (80.0-100.0); Mean Platelet Volume 10.3 fL (9.4-12.4); Platelet Count 48 K/uL (130-400); RDW Coefficient of Variation 18.9 % (11.5-14.5); RDW Standard Deviation 58.7 fL (36.4-46.3); Red Blood Count 3.17 M/uL (4.20-5.40); White Blood Count 8.22 K/ul (4.8-10.8)
[2022-12-23 06:40] LABS: Calcium 7.6 mg/dl (8.6-10.3); Creatinine Clr Calc Pharmacy 9.6 ml/min; Est GFR (African American) 12.8 ml/min
[2022-12-23] MEDS: ALBUT/IPRATROP 3MG/0.5MG NEB 3 ML VIAL NEB SCH ×3 (06:55→19:27)
[2022-12-23 07:13] LABS: Basophils # (auto) 0.02 K/uL (0-0.2); Basophils % (auto) 0.2 %; Immature Granulocytes # (auto) 0.46 K/uL (0.01-0.20); Immature Granulocytes % (auto) 5.6 %; Lymphocytes # (auto) 0.09 K/uL (1.2-3.4); Lymphocytes % (auto) 1.1 %; Monocytes # (auto) 0.38 K/uL (0.11-0.59); Monocytes % (auto) 4.6 %; Neutrophils # (auto) 7.27 K/uL (1.40-6.50); Neutrophils % (auto) 88.5 %
[2022-12-23] MEDS: SUCRALFATE 1 GM/10 ML UDC PO SCH ×4 (07:52→21:19)
[2022-12-23] MEDS: CALCIUM ACETATE 667 MG CAP/TAB PO SCH ×3 (07:53→17:01)
[2022-12-23] MEDS: CARBAMIDE PEROXIDE 6.5% 15 ML BTL OT SCH ×2 (07:53→21:19)
[2022-12-23] MEDS: FLUTICASONE/VILANTEROL 200/25MCG 14 PUFFS/INHALER INH SCH (07:53)
[2022-12-23] MEDS: levETIRAcetam 250 MG TAB PO SCH ×2 (07:53→21:19)
[2022-12-23] MEDS ORDERED: CYANOCOBALAMIN 1000 MCG/ML VIAL IM ONE (08:30)
[2022-12-23] MEDS: FOLIC ACID 1 MG TAB PO SCH (10:17)
--- NOTE | 2022-12-23 17:46 | Hospitalist Progress Note ---
Date of Service December 23, 2022 Assessment & Plan (1) New onset seizure: Plan: Likely from increased intracranial pressure secondary to tumorigenic edema Likely brain mets secondary to probable recurrent lung malignancy with probable hepatic mets as well, past history radiation EEG has been normal Awaiting MRI of the brain without contrast Appreciate neurology input and recommendation We will continue Keppra to 250 mg Q6 hourly for now for seizure Decadron to decrease the edema Seizure precautions MRI of the head without contrast and CT of the head with contrast confirmed 1.5 cm enhancing lesion seen in the right high frontal lobe with significant surrounding edema She remains stable without any more episodes of seizure No more seizures-we will continue with the current medications Has had radiation treatment to the brain today-no more seizures Keppra has been reduced to 250 mg twice daily as per neurologist Remains free of any seizures Palliative care encounter Appreciate palliative care input and recommendation Likely to need placement on discharge PT OT recommended home Likely discharge home tomorrow following first dose of radiation therapy in the brain Not yet decided whether she will be going home or needs to go to jail/personal fci with hospice We will discuss with the family members tomorrow in detail Wants to go home with home health nurse-not yet under hospice care Discharged home after completion of radiation treatment Chronic diastolic heart failure, some congestion on CXR Remains stable Denies any cardiac symptoms No signs and or symptoms of fluid overload Denies any shortness of breath and/or increasing edema Hemoglobin dropped to 6.9 Likely secondary to ongoing cancer No evidence of bleeding Will give 1 unit of PRBC Hemoglobin went up to 10.1 following 1 unit of blood transfusion and the platele t remains low at 68 We will check labs tomorrow again-stable at 8.6 (2) Acute encephalopathy: Plan: Likely secondary to postictal status and is complicated by use of narcotic pain medication and anxiolytics Secondary to metastatic lesion in the brain with edema Acute encephalopathy is resolved (3) Metastasis to brain: Plan: 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 Leslie and she will have completed radiation treatment starting on Thursday, Thursday and finishing on Thursday. She can be discharged home following radiation treatment (4) ESRD (end stage renal disease) on dialysis: Plan: Has been on dialysis for a while Has hyperkalemia and also increasing BUN and creatinine Bicarb and IV insulin for hyperkalemia Nephrology consultation Re: Dialysis management Appreciate nephrology input and recommendation We will continue dialysis-as an outpatient-we will have dialysis today (5) COPD (chronic obstructive pulmonary disease): Plan: History of COPD and also non-small cell lung cancer of the lung Also interstitial disease in the lung is complicating COPD and shortness of breath Has chronic respiratory failure on oxygen (6) Nodular goiter: (7) Mass of right lung: Plan: History of non-small cell cancer of the lung (8) Non-small cell lung cancer (NSCLC): Plan: Right middle lobe bronchial biopsy confirmed adenocarcinoma in 20 17 (9) Interstitial lung disease: Plan Other medical conditions are as follows Left breast cancer sp surgery/chemoradiation Hypothyroidism, TSH slightly elevated Chronic anemia, hemoglobin at baseline Past tobacco abuse DVT prophylaxis. SCDs RE brain tumor DNR as per patient's daughter. Discussed with the family members Prognosis remains guarded Patient family requesting updates from providers. Ms. Yareli Grant (daughter), contact #[phone]. Mr. Danilo Grant (), contact # [phone]. She wants to leave following radiation treatment Admission and Anticipated Discharge Date Admission Date: December 15, 2022 Subjective The patient was seen and examined in medical telemetry unit She has been complaining of generalized discomfort Denies any headache, blurred vision, any numbness and or tingling in the extremities Did not have any more seizure No fever and or chills but remains generally very weak and lethargic 12/16/2022 The patient was seen and examined in medical telemetry unit She remains very weak and lethargic and her condition has not changed since admission Did not have any more seizure since admission Denies any shortness of breath, pain, nausea and or vomiting 12/17/2022 The patient was seen and examined in medical telemetry unit in presence of the family members She has been weak and lethargic and her condition has not changed Remains generally weak and the hemoglobin noted to be low at 6.9 No more seizures 12/18/2022 The patient was seen and examined in medical telemetry unit She has been feeling a little better but is still has profound weakness She has had 2 episodes of small amount of blood in the sputum last evening and this morning No increasing shortness of breath 12/19/2022 The patient was seen and examined in medical telemetry unit She complains of weakness and tiredness Status post radiation treatment to the brain and status post dialysis 12/20/2022 The patient was seen and examined in medical telemetry unit She remains weak and lethargic Discussed with the family members for possible decision on Thursday about going home or to facility 12/21/2022 The patient was seen and examined in medical telemetry unit She remains weak and lethargic but is out of bed on a chair today Abdomen is slightly distended but has had bowel movement Complained to have some nausea 12/22/2022 The patient was seen and examined in medical telemetry unit She has been stable and remains weak and lethargic Will have radiation treatment as per radiation therapist but not yet scheduled The family members and the patient will decide disposition 12/23/2022 The patient was seen and examined in medical telemetry unit She has been stable with moderate shortness of breath at rest and weakness She wants to have radiation treatment before discharge Review of Systems Review of Systems: All systems reviewed and are unremarkable except as noted below Respiratory: Minimal shortness of breath at rest Neurologic: Generally very weak and lethargy Physical Exam Physical Exam: Lying in bed with some distress due to weakness and minimal shortness of breath Constitutional: + ill appearing and average body habitus Eyes: PERRL, conjunctivae normal, anicteric sclerae ENMT: external ear and nose normal, oropharynx normal Respiratory: no respiratory distress Auscultation: + diminished lung sounds and + crackles (Minimal crackles bibasally more on the right than the left) Cardiovascular: Rate/Rhythm: regular rate and regular rhythm; not tachycardic Heart Sounds: normal S1 and normal S2; no murmur Extremities: no edema Gastrointestinal (Abdomen): Inspection/Auscultation: + abdomen distended and normal bowel sounds Percussion/Palpation: + abdomen tender and abdomen soft Musculoskeletal: No acute arthritis involving any joint Neurologic: normal touch/pain/proprioception and moves all extremities; no focal motor deficits Generally very weak and lethargic Psychiatric: A+Ox3, euthymic affect Lymphatic: no cervical or axillary lymphadenopathy Results & Data Results & Data Vital Signs (Past 12 Hours) Vital Signs Temp Pulse Pulse Resp BP Pulse Ox O2 Del Method 12/23/22 15:49 36.6 C 87 16 167/71 H 94 Nasal Cannula 12/23/22 15:41 90 12/23/22 13:02 84 18 96 Nasal Cannula 12/23/22 11:21 36.7 C 83 16 165/63 H 95 Nasal Cannula 12/23/22 10:21 Nasal Cannula 12/23/22 08:11 36.8 C 88 16 156/52 H 96 Nasal Cannula 12/23/22 07:40 90 12/23/22 06:55 84 18 97 Nasal Cannula O2 Flow Rate 12/23/22 15:49 1 12/23/22 15:41 12/23/22 13:02 1 12/23/22 11:21 1 12/23/22 10:21 2 12/23/22 08:11 1 12/23/22 07:40 12/23/22 06:55 2 Laboratory Results Short CBC 12/23/22 Range/Units 05:52 WBC 8.22 (4.8-10.8) K/ul Hgb 8.6 L (12.0-16.0) g/dl Hct 27.5 L (37.0-47.0) % Plt Count 48 L (130-400) K/uL BMP 12/23/22 05:52 Sodium 137 Potassium 4.0 Chloride 100 Carbon Dioxide 25 BUN 65 H Creatinine 4.06 H Glucose 169 H Calcium 7.6 L Medications Administered Current Inpatient Medications Acetaminophen (Acetaminophen 500 Mg Tab) 500 mg PO Q6H PRN PRN Reason: pain/fever Stop: 01/14/23 03:27 Last Admin: 12/16/22 19:42 Dose: 500 mg Albuterol (Albut/Ipratrop 3mg/0.5mg Neb 3 Ml Vial) 3 ml NEB TIDR KAVON; Protocol Stop: 01/17/23 20:59 Last Admin: 12/23/22 13:01 Dose: 3 ml Albuterol (Albut/Ipratrop 3mg/0.5mg Neb 3 Ml Vial) 3 ml NEB Q4R PRN; Protocol PRN Reason: Shortness Of Breath Or Wheezing Stop: 01/17/23 22:59 Calcium Acetate (Calcium Acetate 667 Mg Cap/Tab) 667 mg PO TIDM [facility] Stop: 01/15/23 11:59 Last Admin: 12/23/22 17:01 Dose: 667 mg Carbamide Peroxide (Carbamide Peroxide 6.5% 15 Ml Btl) 2 drops OT BID [facility] Stop: 12/25/22 20:59 Last Admin: 12/23/22 07:53 Dose: 2 drops Famotidine (Famotidine 20 Mg Tab) 20 mg PO HS [facility] Stop: 01/14/23 20:59 Last Admin: 12/22/22 20:41 Dose: 20 mg Fluticasone/Vilanterol (Fluticasone/Vilanterol 200/25mcg 14 Puffs/Inhaler) 1 puffs INH QAM [facility] Stop: 01/14/23 08:59 Last Admin: 12/23/22 07:53 Dose: 1 puffs Folic Acid (Folic Acid 1 Mg Tab) 1 mg PO QAM [facility] Stop: 01/22/23 08:59 Last Admin: 12/23/22 10:17 Dose: 1 mg Dexamethasone 4 mg/ Syringe 1 mls @ 1 mls/min IV Q6H [facility] Stop: 01/14/23 05:59 Last Admin: 12/23/22 17:02 Dose: 1 mls/min Promethazine HCl 6.25 mg/ (Sodium Chloride) 50.25 mls @ 201 mls/hr IV Q6H PRN PRN Reason: Nausea And Vomiting Stop: 01/14/23 03:27 Levetiracetam (Levetiracetam 250 Mg Tab) 250 mg PO BID [facility] Stop: 01/19/23 08:59 Last Admin: 12/23/22 07:53 Dose: 250 mg Levothyroxine Sodium (Levothyroxine Sodium 75 Mcg Tablet) 75 mcg PO DAILYBB [facility] Stop: 01/14/23 06:29 Last Admin: 12/23/22 06:05 Dose: 75 mcg Lorazepam (Lorazepam 2 Mg/1 Ml Vial) 1 mg IV Q10M PRN PRN Reason: seizures Stop: 01/14/23 03:27 Oxycodone HCl (Oxycodone Hcl Ir 5 Mg Tab (Immediate Release)) 5 mg PO Q2H PRN PRN Reason: Pain or dyspnea Stop: 12/30/22 16:59 Pantoprazole Sodium (Pantoprazole 40 Mg Tab) 40 mg PO DAILYBB [facility] Stop: 01/14/23 06:29 Last Admin: 12/23/22 06:05 Dose: 40 mg Simvastatin (Simvastatin 20 Mg Tab) 20 mg PO HS [facility] Stop: 01/14/23 20:59 Last Admin: 12/22/22 20:41 Dose: 20 mg Sucralfate (Sucralfate 1 Gm/10 Ml Udc) 1 gm PO ACHS [facility] Stop: 01/14/23 07:29 Last Admin: 12/23/22 17:01 Dose: 1 gm (5) COPD (chronic obstructive pulmonary disease) COPD type: COPD with acute exacerbation Qualified Code(s): J44.1 - Chronic obstructive pulmonary disease with (acute) exacerbation (8) Non-small cell lung cancer (NSCLC) Laterality: right Qualified Code(s): C34.91 - Malignant neoplasm of unspecified part of right bronchus or lung
[2022-12-23] MEDS ORDERED: SODIUM CHLORIDE 0.65% NA SOLN 45 ML (OCEAN) ONE (18:17)
[2022-12-23] MEDS: SIMVASTATIN 20 MG TAB PO SCH (21:19)
[2022-12-23] MEDS: FAMOTIDINE 20 MG TAB PO SCH (21:19)
[2022-12-23] MEDS ORDERED: OXYMETAZOLINE 0.05% 30 ML BTL ONE (21:35)
[2022-12-24] MEDS ORDERED: LORazepam 2 MG/1 ML VIAL IV STA (05:41)
[2022-12-24] MEDS ORDERED: XOPENEX/ATROVENT 1.25mg/0.5MG NEB COMBO NEB PRN (05:42)
[2022-12-24] MEDS: oxyCODONE HCL IR 5 MG TAB (IMMEDIATE RELEASE) PO PRN ×2 (05:54→19:52)
[2022-12-24] MEDS: dexAMETHasone 4 MG in SYRINGE 0 ML IV SCH ×3 (06:31→17:20)
[2022-12-24] MEDS: PANTOprazole 40 MG TAB PO SCH (06:31)
[2022-12-24] MEDS: LEVOTHYROXINE SODIUM 75 MCG TABLET PO SCH (06:31)
[2022-12-24] MEDS: LEVALBUTEROL 1.25MG/0.5ML NEB INH SCH ×3 (07:07→19:57)
[2022-12-24] MEDS: IPRATROPIUM BROMIDE NEB SOLN 0.02% 2.5 ML VIAL INH SCH ×3 (07:07→19:57)
[2022-12-24] MEDS ORDERED: SODIUM CHLORIDE 0.9% 1000ML 1,000 ML IV PRN (07:48)
[2022-12-24] MEDS: FOLIC ACID 1 MG TAB PO SCH (08:19)
[2022-12-24] MEDS: FLUTICASONE/VILANTEROL 200/25MCG 14 PUFFS/INHALER INH SCH (08:19)
[2022-12-24] MEDS: levETIRAcetam 250 MG TAB PO SCH ×2 (08:20→19:53)
[2022-12-24] MEDS: SUCRALFATE 1 GM/10 ML UDC PO SCH ×4 (08:20→19:52)
[2022-12-24] MEDS: CARBAMIDE PEROXIDE 6.5% 15 ML BTL OT SCH ×2 (08:20→19:53)
[2022-12-24] MEDS: CALCIUM ACETATE 667 MG CAP/TAB PO SCH ×3 (08:20→17:19)
[2022-12-24 08:22] LABS: HBSAG NON-REACTIVE (NON-REACTIVE)
[2022-12-24] MEDS ORDERED: XOPENEX/ATROVENT 1.25mg/0.5MG NEB COMBO NEB SCH (09:00)
[2022-12-24 09:19] LABS: Hemoglobin 8.7 g/dl (12.0-16.0); Mean Corpuscular Hemoglobin 27.1 pg (25.0-34.0); Mean Corpuscular Hgb Conc 31.1 g/dL (32.0-36.0); Mean Corpuscular Volume 87.2 fL (80.0-100.0); Platelet Count 59 K/uL (130-400); RDW Coefficient of Variation 19.4 % (11.5-14.5); RDW Standard Deviation 61.3 fL (36.4-46.3); Red Blood Count 3.21 M/uL (4.20-5.40); White Blood Count 18.31 K/ul (4.8-10.8)
[2022-12-24 09:24] LABS: BUN Creatinine Ratio 18.6 (10-20); Calcium 7.3 mg/dl (8.6-10.3); Creatinine Clr Calc Pharmacy 7.1 ml/min; Est GFR (African American) 8.4 ml/min; Est GFR (Non-African American) 7.3 ml/min; Potassium 5.4 mmol/L (3.5-5.1)
--- NOTE | 2022-12-24 12:29 | Dialysis Progress Note ---
Date of Service December 24, 2022 Assessment & Plan (1) ESRD (end stage renal disease) on dialysis: Plan: on MWF HD > -for routine treatment today w/ goal UF 2.5L; pt is still quite prone to pulmonary edema and will continue supportive HD > she may need an extra tx t omorrow as hypotension is limiting UF today -next HD for 12/26 at the latest or sooner as needs dictate -no indication for GRACIE today; will verify w/ her OP groundman whether ESAs are used in her care as OP >>larger in crease in WBC noted ? source Admission and Anticipated Discharge Date Admission Date: December 15, 2022 Subjective seen and evaluated on dialysis. slept poorly d/t nosebleeds ON. also tells me she had some dyspnea ON. for XRT later today Review of Systems Review of Systems: All systems reviewed & are unremarkable except as noted in Subjective Physical Exam Constitutional: well developed, + acute distress (mildly increased WOB), + cachectic, + frail appearing and cooperative Eyes: EOM intact bilaterally ENMT: Ears: no external ear abnormality Nose: no external nose abnormality Mouth: + dry oral mucous membranes Neck: no nuchal rigidity Respiratory: + labored breathing and + tachypneic; + abnormal respiratory effort and no cough Auscultation: + diminished lung sounds Cardiovascular: RRR, no murmur, no edema Extremities: + AV fistula Gastrointestinal (Abdomen): Inspection/Auscultation: + abdomen distended and normal bowel sounds Percussion/Palpation: abdomen soft; abdomen nontender Musculoskeletal: Extremities: strength 5/5 throughout Skin: no rashes, warm and dry Psychiatric: Orientation: alert and oriented x 3 Results & Data Vital Signs (Past 12 Hours) Vital Signs Temp Pulse Pulse Pulse Resp BP BP 12/24/22 11:30 90 100/59 L 12/24/22 11:00 85 83/48 L 12/24/22 10:30 81 98/50 L 12/24/22 10:00 97 H 108/48 L 12/24/22 09:30 87 140/61 12/24/22 08:00 12/24/22 09:10 36.6 C 87 12/24/22 08:00 36.7 C 86 88 20 148/56 H 12/24/22 07:59 94 H 20 12/24/22 07:30 116 H 12/24/22 03:49 36.6 C 84 20 178/64 H Pulse Ox O2 Del Method O2 Flow Rate 12/24/22 11:30 12/24/22 11:00 12/24/22 10:30 12/24/22 10:00 12/24/22 09:30 12/24/22 08:00 Nasal Cannula 2 12/24/22 09:10 12/24/22 08:00 98 Nasal Cannula 2 12/24/22 07:59 97 Nasal Cannula 2 12/24/22 07:30 12/24/22 03:49 95 Nasal Cannula 2 Laboratory Results 12/24/22 08:37 12/24/22 08:37
[2022-12-24] MEDS ORDERED: ALUMINUM/MAGNESIUM/SIMETH (MAALOX MAX) 30 ML UDC PO PRN (15:23)
--- NOTE | 2022-12-24 18:44 | Hospitalist Progress Note ---
Date of Service December 24, 2022 Assessment & Plan (1) New onset seizure: Plan: Likely from increased intracranial pressure secondary to tumorigenic edema Secondary to brain metastasis --EEG:this EEG was normal during wakefulness and light sleep. Despite her CT scan showing a right frontal mass with edema, no focal abnormalities, potentially epileptogenic discharges, or abnormal slow activity was seen. --MRI Brain:The examination is degraded by motion artifact. The examination is also significantly suboptimal without IV contrast. Again seen is a large focus of edema within the high right frontoparietal region. This remains highly suspicious for underlying mass lesion or metastatic disease. This cannot be further evaluated without IV contrast. There is effacement of the overlying cortical sulci. No midline shift is seen. No additional similar appearing foci of edema are identified throughout the left hemisphere. -- Continue Keppra Continue Decadron Appreciate neurology input Seizure precautions Continue radiation therapy for brain metastasis Appreciate palliative care input and recommendation Likely will need placement on discharge PT OT recommended home We will discuss with neurology/oncology regarding steroid taper Leukocytosis Afebrile ? Secondary to steroids We will obtain chest x-ray, procalcitonin tomorrow Monitor Chronic diastolic heart failure, some congestion on CXR Remains stable Denies any cardiac symptoms No signs and or symptoms of fluid overload Denies any shortness of breath and/or increasing edema Anemia of chronic disease Thrombocytopenia Hb 6.9>8.7 S/P 1 unit PRBC No active bleeding issues Monitor CBC (2) Acute encephalopathy: Plan: Likely secondary to postictal status and is complicated by use of narcotic pain medication and anxiolytics Secondary to metastatic lesion in the brain with edema Acute encephalopathy resolved (3) Metastasis to brain: Plan: 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, liver and spleen MRI brain as above Radiation oncology and Oncology Input appreciated Appreciate palliative care input and recommendation Repeat CT head with contrast confirmed metastatic disease with vasogenic edema in the brain Appreciate radiation oncology input Continue radiation therapy Also on Decadron (4) ESRD (end stage renal disease) on dialysis: Plan: ESRD Hyperkalemia Received Bicarb and IV insulin for hyperkalemia Appreciate Nephrology Input Continue dialysis per nephrology (5) COPD (chronic obstructive pulmonary disease): Plan: H/O COPD and also non-small cell lung cancer of the lung Also interstitial disease in the lung is complicating COPD and shortness of breath chronic respiratory failure on oxygen (6) Nodular goiter: (7) Mass of right lung: Plan: History of non-small cell cancer of the lung (8) Non-small cell lung cancer (NSCLC): Plan: Right middle lobe bronchial biopsy confirmed adenocarcinoma in 2017 (9) Interstitial lung disease: Plan Other medical conditions Left breast cancer sp surgery/chemoradiation Hypothyroidism, TSH slightly elevated Chronic anemia, hemoglobin at baseline Past tobacco abuse DVT prophylaxis SCDs RE brain tumor, anemia, thrombocytopenia CODE STATUS DNI/DNR Admission and Anticipated Discharge Date Admission Date: December 15, 2022 Subjective Patient is seen and examined at bedside Had dialysis and radiation therapy this morning Reports mild frontal headache, feels tired Also reports chronic heartburn, chronic abdominal pain and nausea Denies any other complaints Family at bedside Review of Systems Review of Systems: All systems reviewed & are unremarkable except as noted in Subjective Physical Exam Physical Exam: Physical Exam: Vitals signs as noted above General Appearance: Ill-appearing, frail, thin, no apparent distress Head: normocephalic, Atraumatic Eyes: normal inspection, EOMI Neck: supple, Trachea midline Respiratory/Chest: Decreased breath sounds, bilateral crackles, No accessory muscle use Cardiovascular: S1, S2, No murmur Abdomen/GI:Soft, Non tender, distended-chronic per patient, bowel sounds present Extremities/Musculoskeletal:normal inspection, no edema Neurologic/Psych:AAOX3, grossly no focal neurological deficits Skin: normal color, warm Results & Data Results & Data Vital Signs (Past 12 Hours) Vital Signs Temp Pulse Pulse Pulse Resp BP BP 12/24/22 18:21 75 12/24/22 15:27 36.4 C L 96 H 18 162/61 H 12/24/22 13:55 76 18 12/24/22 12:20 36.5 C 88 12/24/22 12:00 79 102/54 L 12/24/22 11:30 90 100/59 L 12/24/22 11:00 85 83/48 L 12/24/22 10:30 81 98/50 L 12/24/22 10:00 97 H 108/48 L 12/24/22 09:30 87 140/61 12/24/22 08:00 12/24/22 09:10 36.6 C 87 12/24/22 08:00 36.7 C 86 88 20 12/24/22 07:59 94 H 20 12/24/22 07:30 116 H BP Pulse Ox O2 Del Method O2 Flow Rate 12/24/22 18:21 12/24/22 15:27 97 Room Air 12/24/22 13:55 97 Nasal Cannula 2 12/24/22 12:20 161/64 H 12/24/22 12:00 12/24/22 11:30 12/24/22 11:00 12/24/22 10:30 12/24/22 10:00 12/24/22 09:30 12/24/22 08:00 Nasal Cannula 2 12/24/22 09:10 12/24/22 08:00 148/56 H 98 Nasal Cannula 2 12/24/22 07:59 97 Nasal Cannula 2 12/24/22 07:30 Laboratory Results Short CBC 12/24/22 Range/Units 08:37 WBC 18.31 H (4.8-10.8) K/ul Hgb 8.7 L (12.0-16.0) g/dl Hct 28.0 L (37.0-47.0) % Plt Count 59 L (130-400) K/uL BMP 12/24/22 08:37 Sodium 134 L Potassium 5.4 H D Chloride 99 Carbon Dioxide 22 BUN 106 H D Creatinine 5.71 H* D Glucose 232 H Calcium 7.3 L (5) COPD (chronic obstructive pulmonary disease) COPD type: COPD with acute exacerbation Qualified Code(s): J44.1 - Chronic obstructive pulmonary disease with (acute) exacerbation (8) Non-small cell lung cancer (NSCLC) Laterality: right Qualified Code(s): C34.91 - Malignant neoplasm of unspecified part of right bronchus or lung
[2022-12-24] MEDS: SIMVASTATIN 20 MG TAB PO SCH (19:52)
[2022-12-24] MEDS: FAMOTIDINE 20 MG TAB PO SCH (19:53)
[2022-12-25] MEDS: dexAMETHasone 4 MG in SYRINGE 0 ML IV SCH ×3 (00:11→11:58)
[2022-12-25] MEDS: IPRATROPIUM BROMIDE NEB SOLN 0.02% 2.5 ML VIAL INH SCH ×3 (05:18→19:50)
[2022-12-25] MEDS: LEVALBUTEROL 1.25MG/0.5ML NEB INH SCH ×3 (05:18→19:50)
[2022-12-25] MEDS: LEVOTHYROXINE SODIUM 75 MCG TABLET PO SCH (06:06)
[2022-12-25] MEDS: PANTOprazole 40 MG TAB PO SCH ×5 (06:06→21:09)
--- NOTE | 2022-12-25 07:27 | Hospitalist Progress Note ---
Date of Service December 25, 2022 Assessment & Plan (1) Pancytopenia: Plan: Pancytopenia may be multifactorial. Markedly elevated methylmalonic acid despite "normal" B12 level does suggest a deficiency and she is now on combination folic acid and vitamin B12 which will need to repeat on a weekly basis. May be some interaction with medications as well. Radiation is not covering a large amount of her marrow but there could be an abscopal effect. Renal failure certainly impacts upon erythropoiesis. Counts seem to be stabilizing and will continue to monitor (2) Metastasis to brain: Plan: Will complete radiation to the brain soon. I have asked my office to be working on an outpatient PET scan and also to schedule her a follow-up appointment with me the week of January 05 (I am away next week). At that time we can reassess her overall performance status and how desirous she is of moving forward with aggressive diagnostic and therapeutic intervention. Continue to discuss that there may be pros and cons to active treatment beyond palliative care Plan Need to continue vitamin B12 on a weekly basis and daily folic acid I will be away next week but I am asking my office to continue to work on an outpatient PET scan and arrange for an office visit with me week after next anticipating that she will be discharged in the interim Discussions willl continue to focus on the broad questions as to how aggressively we should intervene in a patient with poor performance status. We will need to see her functionality, specific integrity of her metabolic system, and her overall desires for degree of therapeutic intervention when we follow-up in the office to determine if we should proceed with at least biopsy to better define her disease and offer specific prognostic assessment and outline of potential treatment inventions. I will "sign off" for now but I am available by telephone through the weekend. The patient remains hospitalized next week, Dr. Cormier will be available for any new questions or issues. I will have her tentatively scheduled to see me as an outpatient upon my return Admission and Anticipated Discharge Date Admission Date: December 15, 2022 Subjective Status quo, some mild headache and nausea Physical Exam Physical Exam: VSS No major changes in exam. Alert, appropriate in speech, no meningismus, no focality to her neuro exam Results & Data Results & Data Vital Signs (Past 12 Hours) Vital Signs Temp Pulse Pulse Resp BP Pulse Ox O2 Del Method 12/25/22 05:20 82 18 97 Nasal Cannula 12/25/22 02:51 36.5 C 65 16 100/56 L 97 Room Air 12/25/22 01:30 72 12/24/22 23:48 Nasal Cannula 12/24/22 22:13 36.5 C 74 16 103/55 L 98 Nasal Cannula 12/24/22 19:57 16 96 Nasal Cannula 12/24/22 19:48 36.4 C L 75 16 98/40 L 97 Nasal Cannula O2 Flow Rate 12/25/22 05:20 2 12/25/22 02:51 12/25/22 01:30 12/24/22 23:48 2 12/24/22 22:13 2 12/24/22 19:57 2 12/24/22 19:48 2 PG Care Time/CCT Total # of Minutes Spent Total Time Spent with Patient: Total time spent is greater than 50% in coordination of care (as documented) at patient's floor/unit and/or counseling patient: Coding Level of Care Code 29034 SUB INP/OBS CARE 25MIN Diagnoses Pancytopenia D61.818 Metastasis to brain C79.31
[2022-12-25 07:30] LABS: Hematocrit (blood only) 19.1 % (37.0-47.0); Hemoglobin 5.7 g/dl (12.0-16.0)
[2022-12-25 07:32] LABS: Calcium 7.3 mg/dl (8.6-10.3); Magnesium 1.7 mg/dl (1.7-2.4); Mean Corpuscular Hemoglobin 27.1 pg (25.0-34.0); Mean Corpuscular Hgb Conc 29.8 g/dL (32.0-36.0); Platelet Count 48 K/uL (130-400); Potassium 5.1 mmol/L (3.5-5.1); RDW Coefficient of Variation 19.9 % (11.5-14.5); RDW Standard Deviation 65.3 fL (36.4-46.3); White Blood Count 8.81 K/ul (4.8-10.8)
[2022-12-25 07:40] LABS: Anisocytosis Present; Basophils # (auto) 0.03 K/uL (0-0.2); Basophils % (auto) 0.3 %; Immature Granulocytes # (auto) 0.58 K/uL (0.01-0.20); Immature Granulocytes % (auto) 6.6 %; Lymphocytes # (auto) 0.15 K/uL (1.2-3.4); Lymphocytes % (auto) 1.7 %; Monocytes # (auto) 0.53 K/uL (0.11-0.59); Neutrophils # (auto) 7.52 K/uL (1.40-6.50); Neutrophils % (auto) 85.4 %; Polychromasia 1+; Tear Drop Cells 1+
[2022-12-25 07:43] LABS: BUN Creatinine Ratio 16.5 (10-20); Creatinine Clr Calc Pharmacy 9.9 ml/min; Est GFR (African American) 12.8 ml/min
[2022-12-25] MEDS ORDERED: SODIUM CHLORIDE 0.9% 250 ML IV PRN ×2 (07:49→17:36)
[2022-12-25] MEDS: CALCIUM ACETATE 667 MG CAP/TAB PO SCH ×3 (07:54→16:52)
[2022-12-25] MEDS: CARBAMIDE PEROXIDE 6.5% 15 ML BTL OT SCH (07:54)
[2022-12-25] MEDS: SUCRALFATE 1 GM/10 ML UDC PO SCH ×4 (07:54→21:10)
[2022-12-25] MEDS: FLUTICASONE/VILANTEROL 200/25MCG 14 PUFFS/INHALER INH SCH (07:55)
[2022-12-25] MEDS: FOLIC ACID 1 MG TAB PO SCH (07:55)
[2022-12-25] MEDS: levETIRAcetam 250 MG TAB PO SCH ×2 (07:55→21:08)
--- NOTE | 2022-12-25 08:05 | XRay Report ---
XR chest 1V portable HISTORY: Leukocytosis COMPARISON: Chest 12/14/2022. FINDINGS: No pneumothorax. No pleural effusions. The heart remains mildly enlarged. Diffuse interstit ial thickening has slightly improved. There are suture material within the left lung base and a left axillary vascular stent. Calcifications within the aortic knob. Rounded opacity within the right medi al lung base persist. There are old, healed right-sided rib fractures. Prior cholecystectomy. IMPRESSION: 1. Slight improvement in the interstitial thickening which may represent resolving pulmonary edema. 2. No change in the focal rounded opacity within the right medial lung base which has a masslike appe arance. ACT 112: Negative or not required by law. Electronically signed by: Chucho Umana M.D. 12/25/2022 8:04 AM
[2022-12-25 14:25] LABS: Hematocrit (blood only) 23.5 % (37.0-47.0); Hemoglobin 7.6 g/dl (12.0-16.0)
--- NOTE | 2022-12-25 15:52 | Hospitalist Progress Note ---
Date of Service December 25, 2022 Assessment & Plan (1) New onset seizure: Plan: Likely from increased intracranial pressure secondary to tumorigenic edema Secondary to brain metastasis --EEG:this EEG was normal during wakefulness and light sleep. Despite her CT scan showing a right frontal mass with edema, no focal abnormalities, potentially epileptogenic discharges, or abnormal slow activity was seen. --MRI Brain:The examination is degraded by motion artifact. The examination is also significantly suboptimal without IV contrast. Again seen is a large focus of edema within the high right frontoparietal region. This remains highly suspicious for underlying mass lesion or metastatic disease. This cannot be further evaluated without IV contrast. There is effacement of the overlying cortical sulci. No midline shift is seen. No additional similar appearing foci of edema are identified throughout the left hemisphere. -- Continue Keppra Continue Decadron>> changed to p.o. Appreciate neurology input Seizure precautions Continue radiation therapy for brain metastasis Appreciate palliative care input and recommendation Likely will need placement on discharge PT OT recommended home --Plan to start Decadron taper course upon discharge: 40 mg p.o. 4 times daily for 7 days, then 3 times daily for 7 days, then twice daily for 7 days, daily for 7 days and stop Acute on chronic anemia Thrombocytopenia Likely multifactorial--CKD, anemia of chronic disease, possible inherent bone marrow disorder/infiltration with malignancy Continue weekly vitamin B12 and daily folic acid supplements Monitor H&H and transfuse PRBCs as needed S/P 2 units PRBCs We will repeat CT abdomen/pelvis, CT head--pending to rule out bleeding source Leukocytosis Afebrile ? 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, liver and spleen MRI brain as above Radiation oncology and Oncology Input appreciated Appreciate palliative care input and recommendation Repeat CT head with contrast confirmed metastatic disease with vasogenic edema in the brain Appreciate radiation oncology input Continue radiation therapy Also on Decadron Needs PET scan and further evaluation as outpatient (4) ESRD (end stage renal disease) on dialysis: Plan: ESRD Hyperkalemia Received Bicarb and IV insulin for hyperkalemia Appreciate Nephrology Input Continue dialysis per nephrology (5) COPD (chronic obstructive pulmonary disease): Plan: H/O COPD and also non-small cell lung cancer of the lung Also interstitial disease in the lung is complicating COPD and shortness of breath chronic respiratory failure on oxygen (6) Nodular goiter: (7) Mass of right lung: Plan: History of non-small cell cancer of the lung (8) Non-small cell lung cancer (NSCLC): Plan: Right middle lobe bronchial biopsy confirmed adenocarcinoma in 2017 (9) Interstitial lung disease: Plan Other medical conditions Left breast cancer sp surgery/chemoradiation Hypothyroidism, TSH slightly elevated Chronic anemia, hemoglobin at baseline Past tobacco abuse DVT prophylaxis SCDs RE brain tumor, anemia, thrombocytopenia CODE STATUS DNI/DNR Admission and Anticipated Discharge Date Admission Date: December 15, 2022 Subjective Patient is seen and examined at bedside Reports chronic intermittent minimal hemoptysis for about 2 months Otherwise denies no bleeding issues Still has minimal headache Chronic heartburn, chronic abdominal pain and nausea Discussed with oncology today Hb dropped to 5.7 this morning, improved to 7.6 after 1 unit PRBC transfusion Review of Systems Review of Systems: All systems reviewed & are unremarkable except as noted in Subjective Physical Exam Physical Exam: Physical Exam: Vitals signs as noted above General Appearance: Ill-appearing, frail, thin, no apparent distress Head: normocephalic, Atraumatic Eyes: normal inspection, EOMI Neck: supple, Trachea midline Respiratory/Chest:Coarse breath sounds, No accessory muscle use Cardiovascular: S1, S2, No murmur Abdomen/GI:Soft, Non tender, distended-chronic per patient, bowel sounds present Extremities/Musculoskeletal:normal inspection, no edema Neurologic/Psych:AAOX3, grossly no focal neurological deficits Skin: normal color, warm Results & Data Results & Data Vital Signs (Past 12 Hours) Vital Signs Temp Pulse Pulse Pulse Resp BP BP 12/25/22 15:05 36.5 C 94 H 20 12/25/22 13:43 72 16 12/25/22 13:23 36.4 C L 70 18 124/68 12/25/22 11:59 36.4 C L 74 18 105/50 L 12/25/22 10:59 36.5 C 72 18 118/52 L 12/25/22 10:29 36.4 C L 68 18 116/50 L 12/25/22 10:14 36.5 C 70 18 113/50 L 12/25/22 09:53 36.4 C L 75 16 101/51 L 12/25/22 08:49 12/25/22 08:11 65 12/25/22 07:02 36.5 C 71 16 91/53 L 12/25/22 05:20 82 18 BP Pulse Ox O2 Del Method O2 Flow Rate 12/25/22 15:05 118/48 L 96 Nasal Cannula 2 12/25/22 13:43 98 Nasal Cannula 2 12/25/22 13:23 100 2 12/25/22 11:59 100 2 12/25/22 10:59 96 2 12/25/22 10:29 98 2 12/25/22 10:14 100 2 12/25/22 09:53 97 12/25/22 08:49 Nasal Cannula 2 12/25/22 08:11 12/25/22 07:02 99 Nasal Cannula 2 12/25/22 05:20 97 Nasal Cannula 2 Laboratory Results Short CBC 12/25/22 12/25/22 Range/Units 06:49 14:04 WBC 8.81 (4.8-10.8) K/ul Hgb 5.7 L* D 7.6 L (12.0-16.0) g/dl Hct 19.1 L* 23.5 L (37.0-47.0) % Plt Count 48 L (130-400) K/uL BMP 12/25/22 06:49 Sodium 137 Potassium 5.1 Chloride 99 Carbon Dioxide 25 BUN 67 H D Creatinine 4.06 H D Glucose 193 H Calcium 7.3 L (5) COPD (chronic obstructive pulmonary disease) COPD type: COPD with acute exacerbation Qualified Code(s): J44.1 - Chronic obstructive pulmonary disease with (acute) exacerbation (8) Non-small cell lung cancer (NSCLC) Laterality: right Qualified Code(s): C34.91 - Malignant neoplasm of unspecified part of right bronchus or lung
[2022-12-25] MEDS: dexAMETHasone 4 MG TAB PO SCH ×2 (16:58→21:07)
--- NOTE | 2022-12-25 17:16 | CT Scan Report ---
CT head/brain wo con CLINICAL HISTORY: 62 years-old Female with Headache, nausea. Acute headache with nausea TECHNIQUE: Multiple axial CT images of the head were obtained without contrast. A dose lowering tech nique was utilized adhering to the principles of ALARA. COMPARISON: 12/16/2022 FINDINGS: 1.5 cm intra-axial mass within the superior right frontal lobe is similar in size to the prior study. A large amount of surrounding vasogenic edema with gyral expansion partial sulcal effacement is agai n noted. No significant midline shift, hydrocephalus or herniation. Involutional changes with suggest ion of mild chronic microvascular ischemic disease. Subcentimeter hypodense focus of the left caudate nuclear head and right lentiform nuclei appears sta ble. Unchanged calcification within the right posterior medullary brainstem on image 5. The calvarium is intact. The paranasal sinuses, mastoid air cells, and middle ear cavities are clear. IMPRESSION: 1. Stable exam from the study obtained 12/16/2022. There is a 1.5 cm intra-axial mass again noted with in the superior right frontal lobe with significant surrounding vasogenic edema. 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 2. No intracranial hemorrhage, midline shift or hydrocephalus. ACT 112: Negative or not required by law. The above report was generated using voice recognition software. It may contain grammatical, syntax o r spelling errors. Electronically signed by: Jesse Plunkett M.D. 12/25/2022 5:15 PM
--- NOTE | 2022-12-25 17:29 | CT Scan Report ---
ABDOMEN AND PELVIS CT WITHOUT CONTRAST CT DOSE: 803.62 mGy.cm HISTORY: Acute generalized abdominal pain with distention and anemia Abdominal distention, anemia TECHNIQUE: Multiaxial CT images of the abdomen and pelvis were performed without contrast. A dose lo wering technique was utilized adhering to the principles of ALARA. COMPARISON STUDY: CT abdomen and pelvis 12/14/2022, 12/03/2022 FINDINGS: Cardiomegaly with trace pericardial effusion and coronary artery calcifications. Trace righ t and small left pleural effusions. Bibasilar consolidation with intralobular septal thickening, grou ndglass densities and bronchial wall thickening. Hyperdense mediastinal and hilar lymphadenopathy. Lo bular low-density focus within the right middle lobe measuring approximately 6 cm again noted surroun ded by hyperdense material. Hyperdense irregular focus in the right lower lobe is again noted on imag e 26 which also appears stable. Mildly progressed bibasilar consolidation. The spleen is enlarged measuring 17.7 cm in length and again appears diffusely heterogeneous. Unremar kable unenhanced pancreas and adrenal glands. Cholecystectomy. Cirrhotic morphology of the liver. No hepatic mass identified. Severe atrophy of the kidneys again noted. 4 mm calcification of the interpo lar right kidney. Simple and complex renal cysts. There is an acute 6.3 x 4.5 x 7.7 cm left retroperi toneal hemorrhagic focus on image 158 case in the left kidney with a moderate amount of hemorrhage ex tending into the left hemipelvis retroperitoneum. Small amount of hemoperitoneum within the pelvis. D ecompressed urinary bladder. Unremarkable uterus. Distended debris-filled stomach suggestive of recent meal. Severe atherosclerosis of the aorta again noted. No bowel obstruction or bowel wall thickening. There is moderate colonic fecal retention. Sylvia nflamed appendix. Mild generalized body wall edema. Asymmetry of the left breast parenchyma. Small fa t filled supraumbilical hernia. Degenerative changes of the spine, pelvis and hips. IMPRESSION: 1. Acute left-sided retroperitoneal hemorrhage encasing the atrophic left kidney suggestive of a subc apsular bleed with moderate amount of hemorrhage extending into the left pericolic gutter and pelvis. 2. Trace right and small left pleural effusions with progressive bibasilar consolidation. Additional stable findings of the lungs with masslike opacities within the right lung base. Please refer to the chest CT from 12/03/2022 for additional discussion. 3. Cirrhotic liver. 4. No bowel obstruction or bowel wall thickening. 5. Splenomegaly. 6. Additional findings as above. ACT 112: Negative or not required by law. The above report was generated using voice recognition software. It may contain grammatical, syntax o r spelling errors. Electronically signed by: Jesse Plunkett M.D. 12/25/2022 5:26 PM
--- NOTE | 2022-12-25 18:26 | Communication Note ---
Date of Service: December 25, 2022 CT abdomen showed acute left-sided retroperitoneal hemorrhage encasing the atrophic left kidney suggestive of subcapsular bleed. Discussed with general s [place]ina on-call Dr. Alexis. He recommended to discuss with interventional radiologist to see if they can provide any intervention as usually the condition is surgically nonoperative. Discussed with Dr.Kari Mcmullen interventional radiologist service loss control consultant at [facility]. Advised to get CTA to further evaluate the source of bleeding. Discussed with daub color mixer on-call who agrees with contrast imaging given the scenario. We will transfuse 1 unit of PRBC now. Check PT/INR. Will consider FFP if INR elevated. We will also transfuse 1 unit platelets. Updated patient at bedside who agrees with transfer if accepted. Currently no beds available at [facility]. Will await for CTA abdomen and consider possible transfer/further discuss with interventional radiologist based on the results. We will transfer patient to PCU for closer monitoring. We will repeat CT abdomen tomorrow. Will keep her NPO after midnight.
--- NOTE | 2022-12-25 18:39 | Communication Note ---
Date of Service: December 25, 2022 Was informed by transfer center that currently no beds available at [facility]. Patient prefers to be transferred to [place] if needed.
[2022-12-25 19:33] LABS: INR 1.1 (0.9-1.1); Prothrombin Time 11.8 Seconds (9.0-12.0)
[2022-12-25] MEDS ORDERED: OPTIRAY 320 500ml IV ONE (19:33)
--- NOTE | 2022-12-25 20:55 | Surgery Consultation ---
Date of Consultation December 25, 2022 Assessment & Plan (1) Retroperitoneal bleed: I have discussed this case with the hospitalist service. I have noted to them that the treatment of retroperitoneal bleeds is rarely operative. I did recommend to them that they continue to transfuse blood products. It appears that the they have ordered additional packed red blood cells as well as platelet transfusion. As noted they have already checked coagulation studies and the INR is noted to be essentially normal at 1.1. The hospitalist has conveyed to me that they have discussed the case with interventional radiology at [facility] in [place], [place]. They have recommended the patient get a CT angiogram of the abdomen pelvis to see if there is any extravasation and if so consideration will be given to transferring the patient for IR/embolization therapies are available. Following my initial visit with the patient the patient's CT angiogram of the abdomen pelvis returned and patient was noted to have hemorrhage noted in the left retroperitoneum but there is no definite evidence of active bleeding. There is also note of a subcapsular hematoma involving the left kidney. It is in the best interest of the patient to have her blood counts corrected with transfusion of blood products as noted above. If the patient does continue to bleed consideration should be given to transferring the patient to a tertiary care center as noted above where IR capabilities with embolization are available as the patient is a poor surgical candidate due to her numerous underlying medical comorbidities. This was discussed with the hospitalist on-call this evening. It is noteworthy to mention that the patient appears to be hemodynamically stable with a blood pressure of 147/51 and is not tachycardic with a pulse of 88. She was not complaining of any lightheadedness or dizziness or worsening abdominal pain. History of Present Illness Reason for Consultation: Retroperitoneal hemorrhage Attending Physician: Janes Sal MD History of Present Illness This is a 62-year-old female with an underlying history of non-small cell lung cancer. Per reports the patient has concern for metastatic disease to the brain and liver. Patient also has a history in the past of breast cancer for which she underwent surgery as well as chemotherapy and radiation. The patient was admitted to [facility] on 12/15/2022. At that time reports said that the patient had decreased cognition and the family is concerned that there is potential seizure activity. The patient underwent a brain MRI that showed a large focus of edema in the right frontal parietal region which is highly suspicious for underlying metastatic disease. The patient has been seen this admission by oncology and plans are for patient to undergo radiation to the brain at some point. It is noteworthy to mention that she also has end-stage renal disease and has been undergoing dialysis since being in the hospital. Earlier today on 12/25/[address] a CT scan of the abdomen and pelvis. This scan was prompted as the patient was noted to have a drop in her hemoglobin and hematocrit. This scan showed the patient had an acute left-sided retroperitoneal hemorrhage encasing an atrophic left kidney which was suggestive of a subcapsular bleed with a mild amount of hemorrhage extending into the left paracolic gutter. General surgery was consulted for further advice. It was recommended that patient be transferred to a center with IR capabilities where potential embolization could be employed as retroperitoneal bleeds are rarely operated on. It was also recommended that coagulation studies be checked and patient be transfused with appropriate blood products. I did visit with the patient at the bedside. She notes that she has chronic abdominal pain that has been present for months and notes that she does not have any worsening abdominal pain. She specifically denies any back or flank pain. At the time of my exam the patient did not report any lightheadedness or dizziness. Review of patient's labs today show her white blood cell count is 8.8. Earlier today the patient had a hemoglobin of 5.7 and she was transfused packed red blood cells and her hemoglobin has risen to 7.6. The patient's platelet count today was also noted to be 48,000. Additional labs today include an INR which is noted to be 1.1. Her sodium and potassium are both noted to be normal. Her BUN and creatinine are 67 and 4.0 review of blood product summary transfusion show the patient did receive 1 unit of packed red blood cells on 12/17/2022. Today she has only received thus far 1 unit of packed red blood cells At the time of my interview the patient was resting comfortably in bed and she was in no distress. Allergies Allergy/AdvReac Type Severity Reaction Status Date / Time aspirin Allergy Severe EDEMA Verified 12/14/22 22:48 FACE/LIPS/TONGUE dipyridamole Allergy Severe "Bad Verified 12/14/22 22:48 reaction" per records naproxen Allergy Severe EDEMA Verified 12/14/22 22:48 FACE/LIPS/TONGUE atropine Allergy Intermediate Dyspnea/WHE Verified 12/14/22 22:48 EZING vancomycin Allergy Intermediate Rash/tommy Verified 12/14/22 22:48 syndrome maprotiline Allergy Unknown Unknown Verified 12/14/22 22:48 latex Allergy Unknown Verified 12/14/22 22:49 valacyclovir [From Valtrex] AdvReac Severe "FREAKED Verified 12/14/22 22:48 OUT HAD TO BE HOSPITALIZED". linezolid AdvReac Intermediate Thrombocyto Verified 12/14/22 22:48 penia salicylates AdvReac Intermediate Gastrointestinal Verified 12/14/22 22:48 Upset Home Medications Medication Instructions Recorded Confirmed Type albuterol sulfate 2.5 mg/3 mL 2.5 mg inhalation DIRECTED PRN 11/02/18 12/14/22 History (0.083 %) solution for nebulization Shortness Of Breath Or Wheezing hydralazine 25 mg tablet 25 mg PO TID 11/02/18 12/14/22 History levothyroxine 75 mcg tablet 75 mcg PO QAM 11/02/18 12/14/22 History simvastatin 20 mg tablet 20 mg PO HS 11/02/18 12/14/22 History amlodipine 10 mg tablet 10 mg PO QAM 07/14/19 12/14/22 History pantoprazole 40 mg tablet,delayed 40 mg PO DAILYBB 07/14/19 12/14/22 History release metoprolol succinate 25 mg 25 mg PO QAM 11/19/19 12/14/22 History tablet,extended release 24 hr (Toprol XL) calcium acetate(phosphat bind) 667 667 mg PO TIDM 05/20/21 12/14/22 History mg capsule famotidine 20 mg tablet 20 mg PO HS 10/18/21 12/14/22 History aprepitant 80 mg capsule (Emend) 80 mg PO QAM 12/03/22 12/14/22 History benzonatate 200 mg capsule 200 mg PO TID PRN Cough 12/03/22 12/14/22 History fluticasone furoate 200 1 inh inhalation QAM 12/03/22 12/14/22 History mcg-vilanterol 25 mcg/dose inhalation powder (Breo Ellipta) sucralfate 100 mg/mL oral 10 ml PO QID #420 mL 12/03/22 12/14/22 Rx suspension (Carafate) Patient History Medical History Acute on chronic respiratory failure with hypoxia and hypercapnia Advanced care planning/counseling discussion Anemia of chronic renal failure AV fistula LUE Breast cancer DX 2000 s/p chemo/xrt CAD (coronary artery disease) Cancer related pain Chronic diarrhea Chronic hypoxemic respiratory failure Cirrhosis per records COPD (chronic obstructive pulmonary disease) Discussion about advance care planning held with family member Dyspnea and respiratory abnormalities Esophageal polyp ESRD (end stage renal disease) dialysis Thursday//Thursday ([facility]) THIS WEEK D/T UPCOMING PROCEDURE ON 08/21/22 DIALYSIS , THU AND THU GERD (gastroesophageal reflux disease) History of abdominal paracentesis Hyperlipidemia Hypertension Hypothyroidism Interstitial lung disease Multiple pulmonary nodules determined by computed tomography of lung Nausea Non-ischemic cardiomyopathy Non-small cell lung cancer (NSCLC) dx 04/2019; s/p XRT; RML, RLL. Follows with [facility], R-Onc On home oxygen therapy 2L O2 HS Palliative care by specialist Poor historian Splenomegaly, not elsewhere classified w/ multiple hypodense masses stable on fall 2019 imaging and present since at least 2005 Thrombocytopenia chronic, 2/2 cirrhosis. Surgical History H/O partial thyroidectomy GOITER History of bronchoscopy History of cardiac cath 2013- NO STENTS History of colonoscopy History of esophagogastroduodenoscopy (EGD) History of tooth extraction Hx of lumpectomy LEFT S/P arteriovenous (AV) fistula creation left arm > upper S/P laparoscopic cholecystectomy 06/2020 [facility] Family History Other Family history non-contributory No family history of adverse response to anesthesia Social History Smoking Status: Unknown if ever smoked Tobacco Type: Cigarettes Preferred Language: Syriac Communication Ability: Effective Mental Health Aide Required: No Beliefs That Will Affect Care: None marital status: Current Living Situation: Spouse and Family current occupational status: disabled How many Children do You have: 2 Feels Safe at Home: Yes Assistive Devices: Oxygen - Continuous Review of Systems Constitutional: no fever and no chills Ear, Nose, Mouth, Throat: no hearing loss Respiratory: + cough; no dyspnea Cardiovascular: no chest pain Gastrointestinal: + abdominal pain (Patient reports chronic back pain that is no worse today than usual); no nausea and no vomiting Genitourinary: End-stage renal disease Musculoskeletal: no back pain Integumentary: no rash Neurologic: no localized weakness Physical Exam Constitutional: + thin; no acute distress Eyes: no conjunctival abnormality ENMT: Ears: no hearing impairment Mouth: no oropharynx abnormality Neck: trachea midline Respiratory: normal respiratory effort; no respiratory distress and no labored breathing Cardiovascular: Rate/Rhythm: regular rate and regular rhythm Vessels: dorsalis pedis pulses present Gastrointestinal (Abdomen): Abdomen is mildly distended but soft. Bowel sounds are present. There is no pain with palpation. There is no rebound tenderness or guarding or other signs of peritonitis. There is no ecchymosis of patient's flanks bilateral Musculoskeletal: No calf tenderness. Feet are warm and well-perfused Skin: no rashes Neurologic: moves all extremities Psychiatric: A+Ox3, euthymic affect Genitourinary: No CVA tenderness bilaterally. Results & Data Vital Signs (Past 12 Hours) Vital Signs Temp Pulse Pulse Pulse Resp BP BP 12/25/22 20:20 36.8 C 95 H 12/25/22 19:51 36.6 C 84 18 158/64 H 12/25/22 19:50 93 H 20 12/25/22 15:00 82 12/25/22 15:05 36.5 C 94 H 20 12/25/22 13:43 72 16 12/25/22 13:23 36.4 C L 70 18 124/68 12/25/22 11:59 36.4 C L 74 18 105/50 L 12/25/22 10:59 36.5 C 72 18 118/52 L 12/25/22 10:29 36.4 C L 68 18 116/50 L 12/25/22 10:14 36.5 C 70 18 113/50 L 12/25/22 09:53 36.4 C L 75 16 101/51 L BP Pulse Ox O2 Del Method O2 Flow Rate 12/25/22 20:20 148/57 H 95 Nasal Cannula 2 12/25/22 19:51 97 Nasal Cannula 2 12/25/22 19:50 95 Nasal Cannula 2 12/25/22 15:00 12/25/22 15:05 118/48 L 96 Nasal Cannula 2 12/25/22 13:43 98 Nasal Cannula 2 12/25/22 13:23 100 2 12/25/22 11:59 100 2 12/25/22 10:59 96 2 12/25/22 10:29 98 2 12/25/22 10:14 100 2 12/25/22 09:53 97 PG Care Time/CCT Total # of Minutes Spent Total Time Spent with Patient: Total time spent is greater than 50% in coordination of care (as documented) at patient's floor/unit and/or counseling patient: Coding Level of Care Code 50745 IN/OBS CONSULT LVL 5,80M Diagnoses Retroperitoneal bleed R58
[2022-12-25] MEDS: FAMOTIDINE 20 MG TAB PO SCH (21:07)
[2022-12-25] MEDS: SIMVASTATIN 20 MG TAB PO SCH (21:08)
--- NOTE | 2022-12-25 21:12 | CT Scan Report ---
Exam(s): CTA ABDOMEN + PELVIS With Contrast EXAM: CT Angiography Abdomen and Pelvis With Intravenous Contrast CLINICAL HISTORY: Reason for exam: Retroperitoneal Hemorrhage. TECHNIQUE: Axial computed tomographic angiography images of the abdomen and pelvis with intravenous contrast. CTDI is 22 mGy and DLP is 263 mGy-cm. Automated exposure control was utilized for the study. A dose lowering technique was utilized adhering to the principles of ALARA. MIP reconstructed images were created and reviewed. CONTRAST: 113 cc of Optiray 320 COMPARISON: CT abdomen/pelvis on 12/14/2022 FINDINGS: VASCULATURE: Aorta: Atherosclerotic changes of the vasculature. Mild aneurysmal dilatations of the abdominal aorta. Similar moderate stenoses in the mid and distal abdominal aorta. No abdominal aortic dissection. Celiac trunk and mesenteric arteries: See below. Renal arteries: No acute findings. No occlusion or significant stenosis. Iliac arteries: Moderate to severe stenosis at the origin of the left common iliac artery. Moderate stenosis at the origin of the SMA. Lung bases: Heterogeneous masslike consolidation again noted in the right middle lobe and patchy consolidations and groundglass opacities in bilateral lower lobes, concerning for an infectious/inflammatory process and/or neoplasm. Pleural space: Small left and trace right pleural effusions. Heart: Mild cardiomegaly. Trace pericardial fluid. ABDOMEN: Liver: Cirrhotic liver. Gallbladder and bile ducts: Prior cholecystectomy. No ductal dilation. Pancreas: Unremarkable. No ductal dilation. No mass. Spleen: Hypodense small lesions again seen throughout the spleen. Splenomegaly. Adrenals: Unremarkable. No mass. Kidneys and ureters: Severely atrophic right kidney with nonspecific small hypodense lesions. Probable subcapsular hematoma involving the left kidney. Stomach and bowel: Diverticulosis without evidence of diverticulitis. No small bowel obstruction. PELVIS: Appendix: Normal appendix. Bladder: Underdistended bladder limits evaluation. Reproductive: Unremarkable as visualized. Subperitoneal space: Small amount of presacral fluid. ABDOMEN and PELVIS: Intraperitoneal space: Small amount of fluid in the pelvis. No free air. Retroperitoneal space: Hemorrhage in the left retroperitoneum. No definite evidence for active bleeding. Bones/joints: Mild curvature of the spine. No acute fracture. No dislocation. Soft tissues: Body wall edema. Lymph nodes: Unremarkable. No enlarged lymph nodes. IMPRESSION: 1. Moderate to severe stenosis at the origin of the left common iliac artery. Moderate stenosis at the origin of the SMA. 2. Hemorrhage in the left retroperitoneum. No definite evidence for active bleeding. 3. Severely atrophic right kidney with nonspecific small hypodense lesions. Probable subcapsular hematoma involving the left kidney. 4. Heterogeneous masslike consolidation again noted in the right middle lobe and patchy consolidations and groundglass opacities in bilateral lower lobes, concerning for an infectious/inflammatory process and/or neoplasm. 5. Hypodense small lesions again seen throughout the spleen. Splenomegaly. 6. Atherosclerotic changes of the vasculature. Mild aneurysmal dilatations of the abdominal aorta. Similar moderate stenoses in the mid and distal abdominal aorta. No abdominal aortic dissection. 7. Small left and trace right pleural effusions. Electronically signed by: Delgado Muhammad M.D. 12/25/22 21:11 PM
[2022-12-26] MEDS: LEVOTHYROXINE SODIUM 75 MCG TABLET PO SCH (06:05)
[2022-12-26 06:08] LABS: Basophils # (auto) 0.04 K/uL (0-0.2); Basophils % (auto) 0.3 %; Hematocrit (blood only) 26.8 % (37.0-47.0); Hemoglobin 9.1 g/dl (12.0-16.0); Immature Granulocytes # (auto) 0.62 K/uL (0.01-0.20); Immature Granulocytes % (auto) 4.9 %; Lymphocytes # (auto) 0.07 K/uL (1.2-3.4); Lymphocytes % (auto) 0.6 %; Mean Corpuscular Hemoglobin 28.9 pg (25.0-34.0); Mean Corpuscular Volume 85.1 fL (80.0-100.0); Mean Platelet Volume 10.5 fL (9.4-12.4); Monocytes # (auto) 0.93 K/uL (0.11-0.59); Monocytes % (auto) 7.4 %; Neutrophils % (auto) 86.8 %; Platelet Count 52 K/uL (130-400); RDW Coefficient of Variation 16.1 % (11.5-14.5); RDW Standard Deviation 49.5 fL (36.4-46.3); Red Blood Count 3.15 M/uL (4.20-5.40); White Blood Count 12.56 K/ul (4.8-10.8)
[2022-12-26 06:27] LABS: BUN Creatinine Ratio 17.9 (10-20); Calcium 7.2 mg/dl (8.6-10.3); Creatinine Clr Calc Pharmacy 7.9 ml/min; Est GFR (African American) 9.5 ml/min; Est GFR (Non-African American) 8.2 ml/min; Potassium 5.3 mmol/L (3.5-5.1)
--- NOTE | 2022-12-26 07:02 | Surgery Progress Note ---
Date of Service December 26, 2022 Assessment & Plan (1) Retroperitoneal bleed: Plan: No extravasation seen on recent CT scan with IV contrast. Hemoglobin now over 9 after transfusion. Recommend supportive care. She is a nonoperative candidate and retroperitoneal bleeds are not generally explored. If she rebleeds recommendation to be transferred to a tertiary center for interventional radiology. We will sign off. Please call if we can assist. Admission and Anticipated Discharge Date Admission Date: December 15, 2022 Subjective Patient seen. No new abdominal complaints. Some left flank tenderness but overall states she is about at her baseline. Physical Exam Physical Exam: Alert. No acute distress Abdomen is soft. She does have a visible and palpable hematoma it is minimally tender. Results & Data Vital Signs (Past 12 Hours) Vital Signs Temp Pulse Pulse Pulse Resp BP BP 12/26/22 03:00 36.8 C 83 24 12/26/22 01:30 36.6 C 87 24 142/80 H 12/26/22 01:24 36.6 C 88 20 133/84 12/26/22 00:24 36.4 C L 85 17 118/55 L 12/25/22 23:24 36.6 C 87 14 159/55 H 12/25/22 23:00 90 12/25/22 20:42 91 H 12/25/22 22:54 36.7 C 87 14 139/61 12/25/22 22:39 36.7 C 87 14 154/54 H 12/25/22 22:22 36.9 C 91 H 15 152/52 H 12/25/22 22:02 36.7 C 88 17 148/56 H 12/25/22 21:58 36.7 C 89 14 146/52 H 12/25/22 21:28 36.7 C 92 H 14 145/53 H 12/25/22 20:20 12/25/22 21:13 36.8 C 88 14 147/51 H 12/25/22 20:54 37.1 C 93 H 23 139/52 L 12/25/22 20:20 36.8 C 95 H 12/25/22 19:51 36.6 C 84 18 158/64 H 12/25/22 19:50 93 H 20 BP Pulse Ox O2 Del Method O2 Flow Rate 12/26/22 03:00 138/51 L 97 Nasal Cannula 2 04/21/23 01:30 100 12/26/22 01:24 100 2 12/26/22 00:24 100 2 12/25/22 23:24 100 2 12/25/22 23:00 12/25/22 20:42 12/25/22 22:54 99 2 12/25/22 22:39 96 2 12/25/22 22:22 94 2 12/25/22 22:02 95 2 12/25/22 21:58 95 12/25/22 21:28 96 2 12/25/22 20:20 Nasal Cannula 2 12/25/22 21:13 95 2 12/25/22 20:54 93 2 12/25/22 20:20 148/57 H 95 Nasal Cannula 2 12/25/22 19:51 97 Nasal Cannula 2 12/25/22 19:50 95 Nasal Cannula 2 PG Care Time/CCT Total # of Minutes Spent Total Time Spent with Patient: Total time spent is greater than 50% in coordination of care (as documented) at patient's floor/unit and/or counseling patient: Coding Level of Care Code 39161 SUB INP/OBS CARE 2/35MIN Diagnoses Retroperitoneal bleed R58
[2022-12-26] MEDS: IPRATROPIUM BROMIDE NEB SOLN 0.02% 2.5 ML VIAL INH SCH ×3 (07:22→19:10)
[2022-12-26] MEDS: LEVALBUTEROL 1.25MG/0.5ML NEB INH SCH ×3 (07:22→19:10)
[2022-12-26] MEDS ORDERED: SODIUM CHLORIDE 0.9% 1000ML 1,000 ML IV PRN (08:04)
[2022-12-26] MEDS: SUCRALFATE 1 GM/10 ML UDC PO SCH ×4 (08:21→20:46)
[2022-12-26] MEDS: levETIRAcetam 250 MG TAB PO SCH ×2 (08:22→20:45)
[2022-12-26] MEDS: FOLIC ACID 1 MG TAB PO SCH (08:22)
[2022-12-26] MEDS: CALCIUM ACETATE 667 MG CAP/TAB PO SCH ×3 (08:22→17:36)
[2022-12-26] MEDS: FLUTICASONE/VILANTEROL 200/25MCG 14 PUFFS/INHALER INH SCH (08:22)
[2022-12-26] MEDS: dexAMETHasone 4 MG TAB PO SCH ×4 (08:22→20:45)
[2022-12-26] MEDS: PANTOprazole 40 MG TAB PO SCH ×2 (08:22→20:46)
--- NOTE | 2022-12-26 13:30 | CT Scan Report ---
ABDOMEN AND PELVIS CT WITHOUT CONTRAST CT DOSE: 266.08 mGy.cm HISTORY: Acute generalized abdominal pain with reported retroperitoneal hemorrhage Retroperitoneal b leed TECHNIQUE: Multiaxial CT images of the abdomen and pelvis were performed without contrast. A dose lo wering technique was utilized adhering to the principles of ALARA. COMPARISON STUDY: CTA abdomen and pelvis 12/25/2022 FINDINGS: Cardiomegaly with trace pericardial effusion and coronary artery calcifications. Trace pleu ral effusions. Bibasilar consolidation with intralobular septal thickening, groundglass densities and bronchial wall thickening. Hyperdense mediastinal and hilar lymphadenopathy. Lobular low-density foc us within the right middle lobe measuring approximately 6 cm again noted surrounded by hyperdense mat erial. Hyperdense irregular focus in the right lower lobe is again noted which also appears stable. S imilar-appearing bibasilar consolidation. The spleen is enlarged measuring 17.7 cm in length and again appears diffusely heterogeneous. Unremar kable unenhanced pancreas and adrenal glands. Cholecystectomy. Cirrhotic morphology of the liver. No hepatic mass identified. Severe atrophy of the kidneys again noted. 4 mm calcification of the interpo lar right kidney. Simple and complex renal cysts. There is an acute 6.7 x 5.9 x 8.3 cm left retroperi toneal hemorrhagic focus on image 160. Measured in a similar fashion on the 12/25/2022 exam this measu red 6.3 x 4.5 x 7.7 cm. Again, this encases the atrophic left kidney with a moderate amount of hemorr andrew again seen extending into the left hemipelvis retroperitoneum, mildly progressed from 12/25/2022. Moderate amount of hemoperitoneum within the pelvis. Decompressed urinary bladder. Unremarkable uter us. Severe atherosclerosis of the aorta again noted with stenoses of the branch vessels.. No bowel obstru ction or bowel wall thickening. There is moderate colonic fecal retention. Noninflamed appendix. Mild generalized body wall edema. Small fat filled supraumbilical hernia. Degenerative changes of the spi ne, pelvis and hips. IMPRESSION: 1. Large acute retroperitoneal hemorrhage encasing the atrophic left kidney has increased in size fro m the 12/25/2022 exam's and again demonstrates intrapelvic extension with increasing moderate hemoperi toneum. No active extravasation identified on today's exam. 2. Stable appearance of the lung bases. 3. Cirrhotic liver. 4. Unchanged appearance of the spleen with splenomegaly. 5. Additional findings as above. ACT 112: Negative or not required by law. The above report was generated using voice recognition software. It may contain grammatical, syntax o r spelling errors. Electronically signed by: Jesse Plunkett M.D. 12/26/2022 1:28 PM
[2022-12-26] MEDS ORDERED: SODIUM CHLORIDE 0.9% 250 ML IV PRN ×2 (14:17→23:55)
[2022-12-26 14:36] LABS: Hematocrit (blood only) 28.2 % (37.0-47.0); Hemoglobin 9.5 g/dl (12.0-16.0); Mean Corpuscular Hgb Conc 33.7 g/dL (32.0-36.0); Mean Platelet Volume 11.4 fL (9.4-12.4); Platelet Count 53 K/uL (130-400); RDW Coefficient of Variation 16.7 % (11.5-14.5); RDW Standard Deviation 51.7 fL (36.4-46.3); Red Blood Count 3.28 M/uL (4.20-5.40); White Blood Count 12.79 K/ul (4.8-10.8)
--- NOTE | 2022-12-26 18:28 | Nephrology Progress Note ---
Date of Service December 26, 2022 Assessment & Plan (1) ESRD (end stage renal disease) on dialysis: Plan: on MWF HD > -had routine tx today 3 hrs >> tried for longer but ended early or routine treatment today w/ goal UF 2.5L; >pt is quite prone to pulmonary edema and will continue supportive HD > she may need an extra tx tomorrow as hypotension is limiting UF today >> wrote for 1.5 hrs (she declined 2 hrs) and 1 L UF for December 27 -no indication for GRACIE today; will verify w/ her OP network support technician whether ESAs are used in her care as OP > With acute retroperitoneal hemorrhage, no heparin in dialysis; may need more frequent treatments during this timeframe where she is getting frequent transfusions of platelets and packed red cells; await dispo regarding further management of retroperitoneal hemorrhage Admission and Anticipated Discharge Date Admission Date: December 15, 2022 Subjective seen after HD and XRT; feels her breathign is ok; tolerated only 900 ml UF d/t hypotension; getting plts; f/u CT scan w/ increase in L retroperitoneal hemorrhage and hemoperitoneum; she denies abdominal pain or N Review of Systems Review of Systems: All systems reviewed & are unremarkable except as noted in Subjective Physical Exam Constitutional: well developed, + acute distress (again mildly increased WOB), + cachectic, + frail appearing and cooperative Eyes: EOM intact bilaterally ENMT: Ears: no external ear abnormality Nose: no external nose abnormality Mouth: + dry oral mucous membranes Neck: no nuchal rigidity Respiratory: + labored breathing and + tachypneic; + abnormal respiratory effort and no cough Auscultation: + diminished lung sounds Cardiovascular: RRR, no murmur, no edema Extremities: + AV fistula Gastrointestinal (Abdomen): Inspection/Auscultation: + abdomen distended and normal bowel sounds Percussion/Palpation: abdomen soft; abdomen nontender Musculoskeletal: Extremities: strength 5/5 throughout Skin: no rashes, warm and dry Psychiatric: Orientation: alert and oriented x 3 Results & Data Vital Signs (Past 12 Hours) Vital Signs Temp Pulse Pulse Pulse Resp BP BP 12/26/22 18:13 36.9 C 85 20 148/63 H 12/26/22 17:58 36.8 C 89 20 142/61 H 12/26/22 17:41 36.8 C 86 20 157/63 H 12/26/22 16:13 36.6 C 78 19 158/55 H 12/26/22 12:20 36.3 C L 75 143/58 H 12/26/22 11:30 83 116/51 L 12/26/22 11:00 85 106/52 L 12/26/22 10:30 79 108/53 L 12/26/22 10:57 85 81/49 L 12/26/22 10:18 89 91/44 L 12/26/22 10:00 93 H 88/45 L 12/26/22 08:50 36.3 C L 85 12/26/22 09:30 90 95/48 L 12/26/22 09:00 83 137/57 L 12/26/22 08:00 76 12/26/22 08:00 12/26/22 07:30 36.5 C 83 19 175/68 H 12/26/22 07:22 82 22 Pulse Ox O2 Del Method O2 Flow Rate 12/26/22 18:13 93 12/26/22 17:58 12/26/22 17:41 96 2 12/26/22 16:13 95 Nasal Cannula 2 12/26/22 12:20 12/26/22 11:30 12/26/22 11:00 12/26/22 10:30 12/26/22 10:57 12/26/22 10:18 12/26/22 10:00 12/26/22 08:50 12/26/22 09:30 12/26/22 09:00 12/26/22 08:00 12/26/22 08:00 Nasal Cannula 2 12/26/22 07:30 99 Nasal Cannula 2 12/26/22 07:22 94 Nasal Cannula 2 Laboratory Results 12/26/22 14:14 12/26/22 05:29
--- NOTE | 2022-12-26 18:31 | Hospitalist Progress Note ---
Date of Service December 26, 2022 Assessment & Plan (1) New onset seizure: Plan: Likely from increased intracranial pressure secondary to tumorigenic edema Secondary to brain metastasis --EEG:this EEG was normal during wakefulness and light sleep. Despite her CT scan showing a right frontal mass with edema, no focal abnormalities, potentially epileptogenic discharges, or abnormal slow activity was seen. --MRI Brain:The examination is degraded by motion artifact. The examination is also significantly suboptimal without IV contrast. Again seen is a large focus of edema within the high right frontoparietal region. This remains highly suspicious for underlying mass lesion or metastatic disease. This cannot be further evaluated without IV contrast. There is effacement of the overlying cortical sulci. No midline shift is seen. No additional similar appearing foci of edema are identified throughout the left hemisphere. -- Continue Keppra Continue Decadron>> changed to p.o. Appreciate neurology input Seizure precautions Continue radiation therapy for brain metastasis Appreciate palliative care input and recommendation Likely will need placement on discharge PT OT recommended home --Plan to start Decadron taper course upon discharge: 40 mg p.o. 4 times daily for 7 days, then 3 times daily for 7 days, then twice daily for 7 days, daily for 7 days and stop Acute retroperitoneal hemorrhage with hemoperitoneum Acute blood loss anemia In setting of chronic thrombocytopenia --CTA:Moderate to severe stenosis at the origin of the left common iliac artery. Moderate stenosis at the origin of the SMA. Hemorrhage in the left retroperitoneum. No definite evidence for active bleeding. Severely atrophic right kidney with nonspecific small hypodense lesions. Probable subcapsular hematoma involving the left kidney. Heterogeneous masslike consolidation again noted in the right middle lobe and patchy consolidations and groundglass opacities in bilateral lower lobes, concerning for an infectious/inflammatory process and/or neoplasm. Hypodense small lesions again seen throughout the spleen. Splenomegaly. Atherosclerotic changes of the vasculature. Mild aneurysmal dilatations of the abdominal aorta. Similar moderate stenoses in the mid and distal abdominal aorta. No abdominal aortic dissection. Small left and trace right pleural effusions. --CT ABD:Large acute retroperitoneal hemorrhage encasing the atrophic left kidney has increased in size from the 12/25/2022 exam's and again demonstrates intrapelvic extension with increasing moderate hemoperitoneum. No active extravasation identified on today's exam. Stable appearance of the lung bases. Cirrhotic liver. Unchanged appearance of the spleen with splenomegaly. --INR normal --S/P PRBC, platelet transfusion Monitor H&H and transfuse as needed Appreciate surgery input No extravasation seen on CT Conservative management with transfusion as needed for now Discussed with interventional radiology on 12/25/2022(Dr.Kari Mcmullen) and 12/26/2022 (Dr.Mark Uribe)--recommends conservative management We will consider repeat CT imaging as needed Acute on chronic anemia Thrombocytopenia Likely multifactorial--acute retroperitoneal hemorrhage, CKD, anemia of chronic disease, possible inherent bone marrow disorder/infiltration with malignancy Continue weekly vitamin B12 and daily folic acid supplements Monitor H&H and transfuse PRBCs as needed S/P PRBCs Chronic diastolic heart failure, some congestion on CXR Remains stable Denies any cardiac symptoms No signs and or symptoms of fluid overload Denies any shortness of breath and/or increasing edema (2) Acute encephalopathy: Plan: Likely secondary to postictal status and is complicated by use of narcotic pain medication and anxiolytics Secondary to metastatic lesion in the brain with edema Acute encephalopathy resolved (3) Metastasis to brain: Plan: 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, liver and spleen MRI brain as above Radiation oncology and Oncology Input appreciated Appreciate palliative care input and recommendation Repeat CT head with contrast confirmed metastatic disease with vasogenic edema in the brain Appreciate radiation oncology input Continue radiation therapy Also on Decadron Needs PET scan and further evaluation as outpatient (4) ESRD (end stage renal disease) on dialysis: Plan: ESRD Hyperkalemia Received Bicarb and IV insulin for hyperkalemia Appreciate Nephrology Input Continue dialysis per nephrology (5) COPD (chronic obstructive pulmonary disease): Plan: H/O COPD and also non-small cell lung cancer of the lung Also interstitial disease in the lung is complicating COPD and shortness of breath chronic respiratory failure on oxygen (6) Nodular goiter: (7) Mass of right lung: Plan: History of non-small cell cancer of the lung (8) Non-small cell lung cancer (NSCLC): Plan: Right middle lobe bronchial biopsy confirmed adenocarcinoma in 2017 (9) Interstitial lung disease: Plan Other medical conditions Left breast cancer sp surgery/chemoradiation Hypothyroidism, TSH slightly elevated Chronic anemia, hemoglobin at baseline Past tobacco abuse DVT prophylaxis SCDs RE brain tumor, anemia, thrombocytopenia CODE STATUS DNI/DNR Poor prognosis Admission and Anticipated Discharge Date Admission Date: December 15, 2022 Subjective Patient is seen and examined at bedside Had hemodialysis earlier today States having heartburn, minimal hemoptysis Also reports left-sided flank pain associated with nausea No other new complaints Discussed with [facility] today Review of Systems Review of Systems: All systems reviewed & are unremarkable except as noted in Subjective Physical Exam Physical Exam: Physical Exam: Vitals signs as noted above General Appearance: Ill-appearing, frail, thin, no apparent distress Head: normocephalic, Atraumatic Eyes: normal inspection, EOMI Neck: supple, Trachea midline Respiratory/Chest:Coarse breath sounds, No accessory muscle use Cardiovascular: S1, S2, No murmur Abdomen/GI:Soft, Non tender, distended-chronic per patient, bowel sounds present Extremities/Musculoskeletal:normal inspection, no edema Neurologic/Psych:AAOX3, grossly no focal neurological deficits Skin: normal color, warm Results & Data Results & Data Vital Signs (Past 12 Hours) Vital Signs Temp Pulse Pulse Pulse Resp BP BP 12/26/22 18:13 36.9 C 85 20 148/63 H 12/26/22 17:58 36.8 C 89 20 142/61 H 12/26/22 17:41 36.8 C 86 20 157/63 H 12/26/22 16:13 36.6 C 78 19 158/55 H 12/26/22 12:20 36.3 C L 75 143/58 H 12/26/22 11:30 83 116/51 L 12/26/22 11:00 85 106/52 L 12/26/22 10:30 79 108/53 L 12/26/22 10:57 85 81/49 L 12/26/22 10:18 89 91/44 L 12/26/22 10:00 93 H 88/45 L 12/26/22 08:50 36.3 C L 85 12/26/22 09:30 90 95/48 L 12/26/22 09:00 83 137/57 L 12/26/22 08:00 76 12/26/22 08:00 12/26/22 07:30 36.5 C 83 19 175/68 H 12/26/22 07:22 82 22 Pulse Ox O2 Del Method O2 Flow Rate 12/26/22 18:13 93 12/26/22 17:58 12/26/22 17:41 96 2 12/26/22 16:13 95 Nasal Cannula 2 12/26/22 12:20 12/26/22 11:30 12/26/22 11:00 12/26/22 10:30 12/26/22 10:57 12/26/22 10:18 12/26/22 10:00 12/26/22 08:50 12/26/22 09:30 12/26/22 09:00 12/26/22 08:00 12/26/22 08:00 Nasal Cannula 2 12/26/22 07:30 99 Nasal Cannula 2 12/26/22 07:22 94 Nasal Cannula 2 Laboratory Results Short CBC 12/26/22 12/26/22 Range/Units 05:29 14:14 WBC 12.56 H 12.79 H (4.8-10.8) K/ul Hgb 9.1 L 9.5 L (12.0-16.0) g/dl Hct 26.8 L 28.2 L (37.0-47.0) % Plt Count 52 L 53 L (130-400) K/uL BMP 12/26/22 05:29 Sodium 134 L Potassium 5.3 H Chloride 98 Carbon Dioxide 21 BUN 93 H D Creatinine 5.20 H* D Glucose 207 H Calcium 7.2 L (5) COPD (chronic obstructive pulmonary disease) COPD type: COPD with acute exacerbation Qualified Code(s): J44.1 - Chronic obstructive pulmonary disease with (acute) exacerbation (8) Non-small cell lung cancer (NSCLC) Laterality: right Qualified Code(s): C34.91 - Malignant neoplasm of unspecified part of right bronchus or lung
[2022-12-26] MEDS: SIMVASTATIN 20 MG TAB PO SCH (20:46)
[2022-12-26] MEDS: FAMOTIDINE 20 MG TAB PO SCH (20:46)
[2022-12-26 21:44] LABS: Hematocrit (blood only) 22.4 % (37.0-47.0); Hemoglobin 7.6 g/dl (12.0-16.0)
[2022-12-27] MEDS: LEVOTHYROXINE SODIUM 75 MCG TABLET PO SCH (05:37)
[2022-12-27] MEDS ORDERED: SODIUM CHLORIDE 0.9% 1000ML 1,000 ML IV PRN (07:00)
[2022-12-27] MEDS: IPRATROPIUM BROMIDE NEB SOLN 0.02% 2.5 ML VIAL INH SCH ×3 (07:07→20:26)
[2022-12-27] MEDS: LEVALBUTEROL 1.25MG/0.5ML NEB INH SCH ×3 (07:07→20:26)
[2022-12-27 07:10] LABS: Hematocrit (blood only) 28.2 % (37.0-47.0); Hemoglobin 9.8 g/dl (12.0-16.0); Mean Corpuscular Hemoglobin 29.3 pg (25.0-34.0); Mean Corpuscular Hgb Conc 34.8 g/dL (32.0-36.0); Mean Corpuscular Volume 84.2 fL (80.0-100.0); Mean Platelet Volume 12.9 fL (9.4-12.4); Platelet Count 64 K/uL (130-400); RDW Coefficient of Variation 16.1 % (11.5-14.5); RDW Standard Deviation 48.6 fL (36.4-46.3); Red Blood Count 3.35 M/uL (4.20-5.40)
[2022-12-27 07:33] LABS: BUN Creatinine Ratio 15.2 (10-20); Calcium 7.5 mg/dl (8.6-10.3); Creatinine Clr Calc Pharmacy 12.1 ml/min; Est GFR (African American) 15.3 ml/min; Est GFR (Non-African American) 13.2 ml/min; Potassium 4.5 mmol/L (3.5-5.1)
[2022-12-27] MEDS: SUCRALFATE 1 GM/10 ML UDC PO SCH ×4 (08:06→20:59)
[2022-12-27] MEDS: CALCIUM ACETATE 667 MG CAP/TAB PO SCH ×3 (08:06→16:38)
[2022-12-27] MEDS: FLUTICASONE/VILANTEROL 200/25MCG 14 PUFFS/INHALER INH SCH (08:07)
[2022-12-27] MEDS: dexAMETHasone 4 MG TAB PO SCH ×4 (08:08→20:58)
[2022-12-27] MEDS: levETIRAcetam 250 MG TAB PO SCH ×2 (08:08→20:58)
[2022-12-27] MEDS: FOLIC ACID 1 MG TAB PO SCH (08:08)
[2022-12-27] MEDS: PANTOprazole 40 MG TAB PO SCH ×2 (08:09→20:59)
--- NOTE | 2022-12-27 10:37 | Nephrology Progress Note ---
Date of Service December 27, 2022 Assessment & Plan (1) ESRD (end stage renal disease) on dialysis: Plan: on MWF HD > -had routine tx yesterday -Electrolytes are stable and volume status appears good. -no indication for GRACIE today; > With acute retroperitoneal hemorrhage, no heparin in dialysis; may need more frequent treatments during this timeframe where she is getting frequent transfusions of platelets and packed red cells; await dispo regarding further management of retroperitoneal hemorrhage Admission and Anticipated Discharge Date Admission Date: December 15, 2022 Subjective Seen for ESRD. No shortness of breath. She is on chronic oxygen nasal cannula. She had dialysis yesterday. Review of Systems Review of Systems: All other systems were reviewed and negative except as noted in HPI Physical Exam Physical Exam: General exam: Appears comfortable, no acute distress on oxygen nasal cannula HEENT: Pupils are equal and reactive to light Neck: No JVD, neck is supple trachea is midline Respiratory system: Clear breath sounds bilaterally. Gastrointestinal: Abdomen is soft, non distended, non tender, bowel sounds are present CVS: Regular rate and rhythm. No murmurs, rubs or gallops Musculoskeletal: No joint or muscle tenderness Extremities: Non tender, no edema, peripheral pulses are present Neuro: Oriented, no tremors, no focal neurological deficits Skin: No rashes Results & Data Vital Signs (Past 12 Hours) Vital Signs Temp Pulse Pulse Pulse Resp BP BP 12/27/22 08:00 12/27/22 07:07 84 18 12/27/22 07:05 36.7 C 84 19 166/62 H 12/27/22 05:00 36.7 C 84 24 144/63 H 12/27/22 04:13 36.7 C 86 24 144/59 H 12/27/22 03:13 36.5 C 89 22 148/81 H 12/27/22 02:43 36.5 C 90 18 148/79 H 12/27/22 02:28 36.7 C 89 20 141/56 H 12/27/22 03:33 36.7 C 91 H 16 12/27/22 02:07 36.7 C 90 16 157/79 H 12/26/22 23:00 101 H 12/26/22 23:33 36.7 C 94 H 16 150/75 H 12/26/22 22:38 36.6 C 89 15 155/66 H BP Pulse Ox O2 Del Method O2 Flow Rate 04/22/23 08:00 Nasal Cannula 2 12/27/22 07:07 96 Nasal Cannula 2 12/27/22 07:05 95 Nasal Cannula 2 12/27/22 05:00 97 2 12/27/22 04:13 97 2 12/27/22 03:13 96 2 12/27/22 02:43 95 2 12/27/22 02:28 95 2 12/27/22 03:33 131/47 L 95 Nasal Cannula 2 12/27/22 02:07 94 12/26/22 23:00 12/26/22 23:33 96 Nasal Cannula 2 12/26/22 22:38 97 Nasal Cannula Laboratory Results 12/27/22 06:30 12/26/22 12/27/22 14:14 06:30 WBC 12.79 H 10.90 H RBC 3.28 L 3.35 L MCV 86.0 84.2 MCH 29.0 29.3 MCHC 33.7 34.8 RDW Std Deviation 51.7 H 48.6 H RDW Coeff of Dave 16.7 H 16.1 H Plt Count 53 L 64 L MPV 11.4 12.9 H
[2022-12-27 14:15] LABS: Hematocrit (blood only) 25.6 % (37.0-47.0); Hemoglobin 8.8 g/dl (12.0-16.0)
--- NOTE | 2022-12-27 16:57 | CT Scan Report ---
ABDOMEN AND PELVIS CT WITHOUT CONTRAST CT DOSE: 251.95 mGy.cm HISTORY: Retroperitoneal Hemorrhage TECHNIQUE: Multiaxial CT images of the abdomen and pelvis were performed without contrast. A dose lo wering technique was utilized adhering to the principles of ALARA. COMPARISON STUDY: 12/26/2022. FINDINGS: Cardiomegaly with trace pericardial effusion and coronary artery calcifications. Trace pleu ral effusions. Bibasilar consolidation with intralobular septal thickening, groundglass densities and bronchial wall thickening. Hyperdense mediastinal and hilar lymphadenopathy. Lobular low-density foc us within the right middle lobe measuring approximately 6 cm again noted surrounded by hyperdense mat erial. Hyperdense irregular focus in the right lower lobe is again noted which also appears stable. S imilar-appearing bibasilar consolidation. The spleen is enlarged measuring 17.7 cm in length and agai n appears diffusely heterogeneous. Unremarkable unenhanced pancreas and adrenal glands. Cholecystecto my. Cirrhotic morphology of the liver. No hepatic mass identified. Severe atrophy of the kidneys agai n noted. 4 mm calcification of the interpolar right kidney. Simple and complex renal cysts. There is an acute 6.7 x 5.9 x 8.3 cm left retroperitoneal hemorrhagic focus on image 160. This is stable in si ze. Again, this encases the atrophic left kidney with a moderate amount of hemorrhage again seen exte nding into the left hemipelvis retroperitoneum, mildly progressed from 12/25/2022. Moderate amount of hemoperitoneum within the pelvis. Decompressed urinary bladder. Unremarkable uterus. Severe atheroscl erosis of the aorta again noted with stenoses of the branch vessels.. No bowel obstruction or bowel w all thickening. There is moderate colonic fecal retention. Noninflamed appendix. Mild generalized bod y wall edema. Small fat filled supraumbilical hernia. Degenerative changes of the spine, pelvis and h ips. IMPRESSION: 1. Large acute retroperitoneal hemorrhage encasing the atrophic left kidney appears stable in size fr om yesterday's exam and again demonstrates intrapelvic extension with mildly decreased hemoperitoneum . 2. Stable appearance of the lung bases. 3. Cirrhotic liver. 4. Unchanged appearance of the spleen with splenomegaly. 5. Additional findings as above. ACT 112: Negative or not required by law. The above report was generated using voice recognition software. It may contain grammatical, syntax o r spelling errors. Electronically signed by: Jesse Plunkett M.D. 12/27/2022 4:54 PM
--- NOTE | 2022-12-27 17:48 | Hospitalist Progress Note ---
Date of Service December 27, 2022 Assessment & Plan (1) New onset seizure: Plan: Likely from increased intracranial pressure secondary to tumorigenic edema Secondary to brain metastasis --EEG:this EEG was normal during wakefulness and light sleep. Despite her CT scan showing a right frontal mass with edema, no focal abnormalities, potentially epileptogenic discharges, or abnormal slow activity was seen. --MRI Brain:The examination is degraded by motion artifact. The examination is also significantly suboptimal without IV contrast. Again seen is a large focus of edema within the high right frontoparietal region. This remains highly suspicious for underlying mass lesion or metastatic disease. This cannot be further evaluated without IV contrast. There is effacement of the overlying cortical sulci. No midline shift is seen. No additional similar appearing foci of edema are identified throughout the left hemisphere. -- Continue Keppra Continue Decadron>> changed to p.o. Appreciate neurology input Seizure precautions Continue radiation therapy for brain metastasis Appreciate palliative care input and recommendation Likely will need placement on discharge PT OT recommended home --Plan to start Decadron taper course upon discharge: 40 mg p.o. 4 times daily for 7 days, then 3 times daily for 7 days, then twice daily for 7 days, daily for 7 days and stop -- Next radiation therapy on Thursday Acute retroperitoneal hemorrhage with hemoperitoneum Acute blood loss anemia In setting of chronic thrombocytopenia --CTA:Moderate to severe stenosis at the origin of the left common iliac artery. Moderate stenosis at the origin of the SMA. Hemorrhage in the left retroperitoneum. No definite evidence for active bleeding. Severely atrophic right kidney with nonspecific small hypodense lesions. Probable subcapsular hematoma involving the left kidney. Heterogeneous masslike consolidation again noted in the right middle lobe and patchy consolidations and groundglass opacities in bilateral lower lobes, concerning for an infectious/inflammatory process and/or neoplasm. Hypodense small lesions again seen throughout the spleen. Splenomegaly. Atherosclerotic changes of the vasculature. Mild aneurysmal dilatations of the abdominal aorta. Similar moderate stenoses in the mid and distal abdominal aorta. No abdominal aortic dissection. Small left and trace right pleural effusions. --CT ABD:Large acute retroperitoneal hemorrhage encasing the atrophic left kidney has increased in size from the 12/25/2022 exam's and again demonstrates intrapelvic extension with increasing moderate hemoperitoneum. No active extravasation identified on today's exam. Stable appearance of the lung bases. Cirrhotic liver. Unchanged appearance of the spleen with splenomegaly. --INR normal --S/P PRBC, platelet transfusion Monitor H&H and transfuse as needed Appreciate surgery input No extravasation seen on CT Conservative management with transfusion as needed for now Discussed with interventional radiology on 12/25/2022(Dr.Kari Mcmullen) and 12/26/2022 (Dr.Mark Uribe)--recommends conservative management Repeat CT abdomen showed mildly decreased hemoperitoneum today Acute on chronic anemia Thrombocytopenia Likely multifactorial--acute retroperitoneal hemorrhage, CKD, anemia of chronic disease, possible inherent bone marrow disorder/infiltration with malignancy Continue weekly vitamin B12 and daily folic acid supplements Monitor H&H and transfuse PRBCs as needed S/P PRBCs Chronic diastolic heart failure, some congestion on CXR Remains stable Denies any cardiac symptoms No signs and or symptoms of fluid overload Denies any shortness of breath and/or increasing edema (2) Acute encephalopathy: Plan: Likely secondary to postictal status and is complicated by use of narcotic pain medication and anxiolytics Secondary to metastatic lesion in the brain with edema Acute encephalopathy resolved (3) Metastasis to brain: Plan: 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, liver and spleen MRI brain as above Radiation oncology and Oncology Input appreciated Appreciate palliative care input and recommendation Repeat CT head with contrast confirmed metastatic disease with vasogenic edema in the brain Appreciate radiation oncology input Continue radiation therapy Also on Decadron Needs PET scan and further evaluation as outpatient (4) ESRD (end stage renal disease) on dialysis: Plan: ESRD Hyperkalemia Received Bicarb and IV insulin for hyperkalemia Appreciate Nephrology Input Continue dialysis per nephrology (5) COPD (chronic obstructive pulmonary disease): Plan: H/O COPD and also non-small cell lung cancer of the lung Also interstitial disease in the lung is complicating COPD and shortness of breath chronic respiratory failure on oxygen (6) Nodular goiter: (7) Mass of right lung: Plan: History of non-small cell cancer of the lung (8) Non-small cell lung cancer (NSCLC): Plan: Right middle lobe bronchial biopsy confirmed adenocarcinoma in 2017 (9) Interstitial lung disease: Plan Other medical conditions Left breast cancer sp surgery/chemoradiation Hypothyroidism, TSH slightly elevated Chronic anemia, hemoglobin at baseline Past tobacco abuse DVT prophylaxis SCDs RE brain tumor, anemia, thrombocytopenia CODE STATUS DNI/DNR Poor prognosis Admission and Anticipated Discharge Date Admission Date: December 15, 2022 Subjective Patient is seen and examined at bedside No significant change symptomatically from yesterday Repeat CT abdomen showed mildly decreased hemoperitoneum No cheryl bleeding issues Still has left-sided flank pain Denies any chest pain, dyspnea Review of Systems Review of Systems: All systems reviewed & are unremarkable except as noted in Subjective Physical Exam Physical Exam: Physical Exam: Vitals signs as noted above General Appearance: Ill-appearing, frail, thin, no apparent distress Head: normocephalic, Atraumatic Eyes: normal inspection, EOMI Neck: supple, Trachea midline Respiratory/Chest:Coarse breath sounds, No accessory muscle use Cardiovascular: S1, S2, No murmur Abdomen/GI:Soft, Non tender, distended-chronic per patient, bowel sounds present Extremities/Musculoskeletal:normal inspection, no edema Neurologic/Psych:AAOX3, grossly no focal neurological deficits Skin: normal color, warm Results & Data Results & Data Vital Signs (Past 12 Hours) Vital Signs Temp Pulse Pulse Resp BP Pulse Ox O2 Del Method 12/27/22 15:48 36.6 C 90 22 176/68 H 95 Nasal Cannula 12/27/22 13:32 84 18 96 12/27/22 11:44 36.6 C 91 H 18 168/68 H 95 Nasal Cannula 12/27/22 08:00 Nasal Cannula 12/27/22 07:07 84 18 96 Nasal Cannula 12/27/22 07:05 36.7 C 84 19 166/62 H 95 Nasal Cannula O2 Flow Rate 12/27/22 15:48 2 12/27/22 13:32 2 12/27/22 11:44 2 12/27/22 08:00 2 12/27/22 07:07 2 12/27/22 07:05 2 Laboratory Results Short CBC 12/26/22 12/27/22 12/27/22 Range/Units 21:20 06:30 13:59 WBC 10.90 H (4.8-10.8) K/ul Hgb 7.6 L 9.8 L 8.8 L (12.0-16.0) g/dl Hct 22.4 L 28.2 L 25.6 L (37.0-47.0) % Plt Count 64 L (130-400) K/uL BMP 12/27/22 06:30 Sodium 138 Potassium 4.5 Chloride 99 Carbon Dioxide 27 BUN 53 H D Creatinine 3.49 H D Glucose 166 H Calcium 7.5 L (5) COPD (chronic obstructive pulmonary disease) COPD type: COPD with acute exacerbation Qualified Code(s): J44.1 - Chronic obstructive pulmonary disease with (acute) exacerbation (8) Non-small cell lung cancer (NSCLC) Laterality: right Qualified Code(s): C34.91 - Malignant neoplasm of unspecified part of right bronchus or lung
[2022-12-27] MEDS: FAMOTIDINE 20 MG TAB PO SCH (20:58)
[2022-12-27] MEDS: SIMVASTATIN 20 MG TAB PO SCH (20:59)
[2022-12-27 23:33] LABS: Hematocrit (blood only) 24.4 % (37.0-47.0); Hemoglobin 8.2 g/dl (12.0-16.0)
[2022-12-28] MEDS: LEVOTHYROXINE SODIUM 75 MCG TABLET PO SCH (05:59)
[2022-12-28 06:27] LABS: Hematocrit (blood only) 24.3 % (37.0-47.0); Hemoglobin 8.3 g/dl (12.0-16.0); Mean Corpuscular Hemoglobin 28.9 pg (25.0-34.0); Mean Corpuscular Hgb Conc 34.2 g/dL (32.0-36.0); Mean Corpuscular Volume 84.7 fL (80.0-100.0); Mean Platelet Volume 10.6 fL (9.4-12.4); Platelet Count 45 K/uL (130-400); RDW Coefficient of Variation 16.5 % (11.5-14.5); RDW Standard Deviation 51.2 fL (36.4-46.3); Red Blood Count 2.87 M/uL (4.20-5.40); White Blood Count 9.93 K/ul (4.8-10.8)
[2022-12-28 06:39] LABS: Calcium 7.6 mg/dl (8.6-10.3)
[2022-12-28 06:45] LABS: BUN Creatinine Ratio 16.8 (10-20); Creatinine Clr Calc Pharmacy 8.9 ml/min; Est GFR (African American) 10.6 ml/min; Est GFR (Non-African American) 9.1 ml/min
[2022-12-28] MEDS ORDERED: dexAMETHasone 4 MG in SYRINGE 0 ML IV ONE (06:45)
[2022-12-28] MEDS: MAGNESIUM SULFATE / D5W 1 GM/100 ML BAG IV SCH ×2 (06:48→08:29)
--- NOTE | 2022-12-28 06:53 | Communication Note ---
Date of Service: December 28, 2022 6:30 AM Patient with sudden onset shortness of breath and worsening hypoxemia. Tachypneic and tachycardic. O2 sats 80s on 100% on NRBM as per RN. Some hemoptysis chest pain as per patient. Chest x-ray as per my interpretation bilateral infiltrates, congestion AP Respiratory failure Multifactorial: pulmonary congestion, history ESRD Hemoptysis BiPAP baseline ABG IV Decadron 1 dose now and neb treatment for hemoptysis CT chest once respiratory status stable May need Pulmonary evaluation Contact Nephrology to coordinate emergent hemodialysis this weekend. ADDENDUM : Case discussed with Dr. Contreras of Nephrology. He will contact dialysis nurse.
[2022-12-28] MEDS: IPRATROPIUM BROMIDE NEB SOLN 0.02% 2.5 ML VIAL INH SCH ×3 (07:06→19:20)
[2022-12-28] MEDS: LEVALBUTEROL 1.25MG/0.5ML NEB INH SCH ×3 (07:06→19:20)
[2022-12-28] MEDS ORDERED: BENZONATATE 100 MG CAPSULE PO PRN (07:13)
[2022-12-28 07:34] LABS: iSTAT Allen Test Pass; iSTAT Art Bld Gas pCO2 Correct 51 mmHg (35-46); iSTAT Art Bld Gas pH Corrected 7.289 (7.35-7.45); iSTAT Arterial Blood Gas HCO3 25 meg/L (19-24); iSTAT Arterial Blood Gas pCO2 54 mmHg (35-46); iSTAT Arterial Blood Gas pH 7.28 (7.35-7.45); iSTAT Arterial Blood Gas pO2 152 mmHg (80-95); iSTAT Arterial Blood Gas pO2 C 147; iSTAT Carbon Dioxide 26 mmol/L (24-31); iSTAT FiO2 40 %; iSTAT Hematocrit 31 % (37-47); iSTAT Hemoglobin 10.5 g/dl (12.0-16.0); iSTAT Potassium 5.3 mmol/L (3.3-5.0); iSTAT Site R Radial; iSTAT Sodium 132 mmol/L (135-144)
[2022-12-28] MEDS ORDERED: BENZONATATE 100 MG CAPSULE PO ONE (08:00)
--- NOTE | 2022-12-28 08:08 | XRay Report ---
XR chest 1V portable HISTORY: 62 years-old Female sob acute shortness of breath COMPARISON: CT abdomen and pelvis 12/27/2022, chest CT 12/03/2022 TECHNIQUE: AP view of the chest FINDINGS: Cardiac silhouette is enlarged. Increased density of the lung bases with masslike opacities of the ri ght lung base is again noted. Small pleural effusions. Progressively worsened mixed interstitial and alveolar opacities. No pneumothorax. Degenerative changes of the shoulders and spine with surgical cl ips of the left breast and stent grafts within the left upper extremity. IMPRESSION: 1. Cardiomegaly with progressive mixed interstitial and alveolar opacities suggestive of pulmonary ed julio cesar versus multifocal pneumonia. 2. Small pleural effusions. 3. Masslike opacity of the right lung base again noted. ACT 112: Negative or not required by law. The above report was generated using voice recognition software. It may contain grammatical, syntax o r spelling errors. Electronically signed by: Jesse Plunkett M.D. 12/28/2022 8:07 AM
[2022-12-28] MEDS ORDERED: SODIUM CHLORIDE 0.9% 1000ML 1,000 ML IV PRN (08:11)
[2022-12-28] MEDS: FOLIC ACID 1 MG TAB PO SCH (08:30)
[2022-12-28] MEDS: PANTOprazole 40 MG TAB PO SCH (08:30)
[2022-12-28] MEDS: FLUTICASONE/VILANTEROL 200/25MCG 14 PUFFS/INHALER INH SCH (08:30)
[2022-12-28] MEDS: SUCRALFATE 1 GM/10 ML UDC PO SCH ×4 (08:30→21:29)
[2022-12-28] MEDS: CALCIUM ACETATE 667 MG CAP/TAB PO SCH ×3 (08:30→16:40)
[2022-12-28 08:57] LABS: Magnesium 1.8 mg/dl (1.7-2.4)
[2022-12-28] MEDS ORDERED: MIDODRINE HCL 10 MG TAB PO STA (09:08)
--- NOTE | 2022-12-28 10:58 | Nephrology Progress Note ---
Date of Service December 28, 2022 Assessment & Plan (1) ESRD (end stage renal disease) on dialysis: Plan: on MWF HD > -had routine tx Thursday. She was hypoxic this morning and needed BIPAP. We are attempting dialysis today for 3hrs and target UF 2.5 litres. -no indication for GRACIE today; > With acute retroperitoneal hemorrhage, no heparin in dialysis; may need more frequent treatments during this timeframe where she is getting frequent transfusions of platelets and packed red cells; await dispo regarding further management of retroperitoneal hemorrhage Admission and Anticipated Discharge Date Admission Date: December 15, 2022 Subjective Seen for ESRD. Patient seen and examined on dialysis. she was unresposive at 45 minutes and dialysis was paused. Patient woke up again and dialysis resumed with lower UF goal. Review of Systems Review of Systems: All other systems were reviewed and negative except as noted in HPI Physical Exam Physical Exam: General exam: Appears comfortable, on BIPAP HEENT: Pupils are equal and reactive to light Neck: No JVD, neck is supple trachea is midline Respiratory system: Clear breath sounds bilaterally. Gastrointestinal: Abdomen is soft, non distended, non tender, bowel sounds are present CVS: Regular rate and rhythm. No murmurs, rubs or gallops Musculoskeletal: No joint or muscle tenderness Extremities: Non tender, no edema, peripheral pulses are present Neuro: no tremors, no focal neurological deficits Skin: No rashes Results & Data Vital Signs (Past 12 Hours) Vital Signs Temp Pulse Pulse Pulse Resp BP Pulse Ox 12/28/22 08:00 12/28/22 07:40 117 H 28 H 128/66 100 12/28/22 07:07 129 H 29 H 100 12/28/22 07:06 129 H 27 H 100 12/28/22 03:00 36.5 C 74 12 122/80 96 12/27/22 23:00 80 O2 Del Method O2 Flow Rate FiO2 12/28/22 08:00 BiPAP 40 12/28/22 07:40 BiPAP 40 12/28/22 07:07 40 12/28/22 07:06 BiPAP 40 12/28/22 03:00 Nasal Cannula 2 12/27/22 23:00 Laboratory Results 12/28/22 06:14 12/28/22 06:14 WBC 9.93 RBC 2.87 L MCV 84.7 MCH 28.9 MCHC 34.2 RDW Std Deviation 51.2 H RDW Coeff of Dave 16.5 H Plt Count 45 L MPV 10.6
[2022-12-28] MEDS ORDERED: dexAMETHasone 4 MG TAB PO SCH (12:00)
[2022-12-28] MEDS ORDERED: MoRPHine SULFATE 2 MG/ML CARP ONE (12:29)
[2022-12-28] MEDS: levETIRAcetam 250 MG TAB PO SCH ×2 (12:30→21:28)
[2022-12-28] MEDS ORDERED: MoRPHine SULFATE 2 MG/ML CARP IV STA (12:31)
--- NOTE | 2022-12-28 14:19 | Electrocardiogram Report ---
Test Reason : Blood Pressure : / mmHG Vent. Rate : 139 BPM Atrial Rate : 139 BPM P-R Int : 148 ms QRS Dur : 084 ms QT Int : 302 ms P-R-T Axes : 023 004 109 degrees QTc Int : 459 ms Poor data quality, interpretation may be adversely affected Unable to interpret Confirmed by Denny Chris ([id number]) on 12/28/2022 2:19:25 PM Referred By: REFERRED SELF Confirmed By:Denny Chris
--- NOTE | 2022-12-28 15:17 | Hospitalist Progress Note ---
Date of Service December 28, 2022 Assessment & Plan (1) New onset seizure: Plan: New onset seizure Secondary to increased intracranial pressure secondary to tumorigenic edema Secondary to brain metastasis --EEG:this EEG was normal during wakefulness and light sleep. Despite her CT scan showing a right frontal mass with edema, no focal abnormalities, potentially epileptogenic discharges, or abnormal slow activity was seen. --MRI Brain:The examination is degraded by motion artifact. The examination is also significantly suboptimal without IV contrast. Again seen is a large focus of edema within the high right frontoparietal region. This remains highly suspicious for underlying mass lesion or metastatic disease. This cannot be further evaluated without IV contrast. There is effacement of the overlying cortical sulci. No midline shift is seen. No additional similar appearing foci of edema are identified throughout the left hemisphere. -- Continue Keppra Continue Decadron Appreciate neurology input Seizure precautions Continue radiation therapy for brain metastasis Appreciate palliative care input and recommendation Likely will need placement on discharge PT OT recommended home --Plan to start Decadron taper course upon discharge: 40 mg p.o. 4 times daily for 7 days, then 3 times daily for 7 days, then twice daily for 7 days, daily for 7 days and stop -- Radiation therapy per oncology Acute retroperitoneal hemorrhage with hemoperitoneum Acute blood loss anemia In setting of chronic thrombocytopenia --CTA:Moderate to severe stenosis at the origin of the left common iliac artery. Moderate stenosis at the origin of the SMA. Hemorrhage in the left retroperitoneum. No definite evidence for active bleeding. Severely atrophic right kidney with nonspecific small hypodense lesions. Probable subcapsular hematoma involving the left kidney. Heterogeneous masslike consolidation again noted in the right middle lobe and patchy consolidations and groundglass opacities in bilateral lower lobes, concerning for an infectious/inflammatory process and/or neoplasm. Hypodense small lesions again seen throughout the spleen. Splenomegaly. Atherosclerotic changes of the vasculature. Mild aneurysmal dilatations of the abdominal aorta. Similar moderate stenoses in the mid and distal abdominal aorta. No abdominal aortic dissection. Small left and trace right pleural effusions. --CT ABD:Large acute retroperitoneal hemorrhage encasing the atrophic left kidney has increased in size from the 12/25/2022 exam's and again demonstrates intrapelvic extension with increasing moderate hemoperitoneum. No active extravasation identified on today's exam. Stable appearance of the lung bases. Cirrhotic liver. Unchanged appearance of the spleen with splenomegaly. --INR normal --S/P PRBC, platelet transfusion Monitor H&H and transfuse as needed Appreciate surgery input No extravasation seen on CT Conservative management with transfusion as needed for now Discussed with interventional radiology on 12/25/2022(Dr.Kari Mcmullen) and 12/26/2022 (Dr.Mark Uribe)--recommends conservative management Repeat CT abdomen showed mildly decreased hemoperitoneum on 12/27/22 Acute on chronic respiratory failure with hypoxia Volume overload --CXR:Cardiomegaly with progressive mixed interstitial and alveolar opacities suggestive of pulmonary edema versus multifocal pneumonia. Small pleural effusions. Masslike opacity of the right lung base again noted. Patient had significant worsening shortness of breath associated with hypoxia, tachypnea and tachycardia overnight and was initially placed on nonrebreather and later on BiPAP Discussed with nephrology today for urgent hemodialysis Patient had 2 episodes of syncope while getting hemodialysis and so was discontinued due to intolerance Currently on BiPAP Offered transfer to tertiary care facility for further care--Patient and patient's daughter (POA) prefers not not to be transferred to tertiary care facility for escalation of care (possible CRRT, IR intervention) Patient and family prefers to be DNI/DNR. Patient's daughter informs that her mother had undergone through lot of suffering Patient/Family understands her critical condition and agrees with current management Acute GI bleeding Not on anticoagulation Normal INR Started on IV Protonix GI consulted High threshold for transfusion currently as patient is volume overloaded, Intolerance to dialysis today Patient aware of critical condition and is ok with no transfusion currently Repeat H&H: 10.3/29.6 Acute on chronic anemia Thrombocytopenia Likely multifactorial--acute retroperitoneal hemorrhage, CKD, anemia of chronic disease, possible inherent bone marrow disorder/infiltration with malignancy Continue weekly vitamin B12 and daily folic acid supplements Monitor H&H and transfuse PRBCs as needed if clinically appropriate S/P PRBCs Chronic diastolic heart failure, some congestion on CXR Remains stable Denies any cardiac symptoms No signs and or symptoms of fluid overload Denies any shortness of breath and/or increasing edema (2) Acute encephalopathy: Plan: Likely secondary to postictal status and is complicated by use of narcotic pain medication and anxiolytics Secondary to metastatic lesion in the brain with edema Acute encephalopathy resolved (3) Metastasis to brain: Plan: 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, liver and spleen MRI brain as above Radiation oncology and Oncology Input appreciated Appreciate palliative care input and recommendation Repeat CT head with contrast confirmed metastatic disease with vasogenic edema in the brain Appreciate radiation oncology input Continue radiation therapy Also on Decadron Needs PET scan and further evaluation as outpatient (4) ESRD (end stage renal disease) on dialysis: Plan: ESRD Hyperkalemia Received Bicarb and IV insulin for hyperkalemia Appreciate Nephrology Input Continue dialysis per nephrology Intolerance to dialysis today Very poor prognosis (5) COPD (chronic obstructive pulmonary disease): Plan: H/O COPD and also non-small cell lung cancer of the lung Also interstitial disease in the lung is complicating COPD and shortness of breath chronic respiratory failure on oxygen (6) Nodular goiter: (7) Mass of right lung: Plan: History of non-small cell cancer of the lung (8) Non-small cell lung cancer (NSCLC): Plan: Right middle lobe bronchial biopsy confirmed adenocarcinoma in 2017 (9) Interstitial lung disease: Plan Other medical conditions Left breast cancer sp surgery/chemoradiation Hypothyroidism, TSH slightly elevated Past tobacco abuse DVT prophylaxis SCDs RE brain tumor, anemia, thrombocytopenia, GI bleed CODE STATUS DNI/DNR Prognosis is guarded Admission and Anticipated Discharge Date Admission Date: December 15, 2022 Subjective Patient is seen and examined at bedside Patient had significant worsening shortness of breath associated with hypoxia, tachypnea and tachycardia overnight and was initially placed on nonrebreather and later on BiPAP Discussed with nephrology for urgent hemodialysis Patient had 2 episodes of syncope while getting hemodialysis and so was discontinued due to intolerance Patient also had a bloody bowel movement today Currently on BiPAP, still has respiratory distress CODE STATUS DNI DNR Discussed with patient's family at bedside in detail Clinically deteriorating Review of Systems Review of Systems: All systems reviewed & are unremarkable except as noted in Subjective Physical Exam Physical Exam: Physical Exam: Vitals signs as noted above General Appearance: Ill-appearing, frail, thin, mild respiratory distress Head: normocephalic, Atraumatic Eyes: normal inspection, EOMI Neck: supple, Trachea midline Respiratory/Chest:Coarse breath sounds, minimal accessory muscle use Cardiovascular: S1, S2, No murmur Abdomen/GI:Soft, Non tender, distended-chronic per patient, bowel sounds present Extremities/Musculoskeletal:normal inspection, no edema Neurologic/Psych:AAOX2, grossly no focal neurological deficits Skin: normal color, warm Results & Data Results & Data Vital Signs (Past 12 Hours) Vital Signs Temp Pulse Pulse Pulse Pulse Resp BP 12/28/22 12:30 36.6 C 99 H 12/28/22 12:00 71 152/76 H 12/28/22 11:30 102 H 98/68 L 12/28/22 12:55 102 H 34 H 12/28/22 12:54 102 H 34 H 12/28/22 12:45 105 H 24 12/28/22 11:00 55 L 114/58 L 12/28/22 10:30 68 133/85 12/28/22 10:15 94 H 112/63 12/28/22 09:58 36.5 C 91 H 12/28/22 10:59 100 H 27 H 12/28/22 08:00 12/28/22 07:40 117 H 28 H 12/28/22 07:07 129 H 29 H 12/28/22 07:06 129 H 27 H BP Pulse Ox O2 Del Method FiO2 12/28/22 12:30 99/64 L 12/28/22 12:00 12/28/22 11:30 12/28/22 12:55 100 BiPAP 50 12/28/22 12:54 100 50 12/28/22 12:45 153/83 H 100 BiPAP 50 12/28/22 11:00 12/28/22 10:30 12/28/22 10:15 12/28/22 09:58 12/28/22 10:59 100 100 12/28/22 08:00 BiPAP 40 12/28/22 07:40 128/66 100 BiPAP 40 12/28/22 07:07 100 40 12/28/22 07:06 100 BiPAP 40 Laboratory Results Short CBC 12/27/22 12/28/22 Range/Units 22:51 06:14 WBC 9.93 (4.8-10.8) K/ul Hgb 8.2 L 8.3 L (12.0-16.0) g/dl Hct 24.4 L 24.3 L (37.0-47.0) % Plt Count 45 L (130-400) K/uL BMP 12/28/22 06:14 Sodium 136 Potassium 5.0 Chloride 98 Carbon Dioxide 25 BUN 80 H D Creatinine 4.75 H* D Glucose 147 H Calcium 7.6 L (5) COPD (chronic obstructive pulmonary disease) COPD type: COPD with acute exacerbation Qualified Code(s): J44.1 - Chronic obstructive pulmonary disease with (acute) exacerbation (8) Non-small cell lung cancer (NSCLC) Laterality: right Qualified Code(s): C34.91 - Malignant neoplasm of unspecified part of right bronchus or lung
[2022-12-28 15:28] LABS: Hematocrit (blood only) 29.6 % (37.0-47.0); Hemoglobin 10.3 g/dl (12.0-16.0)
[2022-12-28] MEDS: PANTOprazole 40 MG in SYRINGE 0 ML IV SCH ×2 (16:40→22:18)
[2022-12-28] MEDS: dexAMETHasone 4 MG in SYRINGE 0 ML IV SCH ×2 (16:40→22:17)
--- NOTE | 2022-12-28 17:10 | CT Scan Report ---
CT chest diagnostic wo con CT DOSE: 184.16 mGy.cm CLINICAL HISTORY: 62 years-old Female with hemoptysis (once px breathing stable). Acute hemoptysis TECHNIQUE: Multiaxial CT images of the chest were performed without contrast. A dose lowering techni que was utilized adhering to the principles of ALARA. COMPARISON: Chest radiograph of same day, CT abdomen and pelvis 12/27/2022, 12/26/2022, 12/25/2022, ches t CT 12/03/2022 FINDINGS: Heterogeneous splenomegaly. Partially imaged acute retroperitoneal hematoma centered within the left upper quadrant abdomen again noted. Unchanged appearance of the liver. Subcutaneous edema/c ontusion of the lateral left abdominal wall is partially imaged. Moderate cardiomegaly with trace pericardial effusion. Moderate coronary artery calcifications. Ather osclerosis of the aorta without aneurysm. Dilated pulmonary arteries suggestive of pulmonary arterial hypertension. Hyperdense mediastinal and hilar lymph nodes are again noted. Left subclavian vascular stent graft. Small pleural effusions. No pneumothorax. Diffuse intralobular septal thickening with diffuse groundg lass densities again noted, progressed from 12/03/2022 with new dependent predominant consolidation, m ost pronounced within the lower lobes. Hyperdense material within the dependent lower lobes is again noted. Pulmonary emphysema with bronchial wall thickening. Expansion of the right middle lobe with a lobular low-density focus similar prior measuring 5.8 x 4.4 cm, previously measured at 6.5 x 4.9 cm. This is surrounded by hyperdense material within the right middle lobe. Irregular mixed density focus within the basal right lower lobe again noted measuring 4 cm on image 168, stable. No acute fracture identified. IMPRESSION: 1. Partially imaged acute retroperitoneal hematoma centered around the left kidney is again noted. Pl ease refer to the numerous CT abdomen and pelvis studies obtained over the past several days. 2. Cardiomegaly with small pleural effusions. Intralobular septal thickening with progressive diffuse groundglass densities suggestive of worsening pulmonary edema. 3. There are new patchy bilateral airspace opacities, most pronounced within the lower lobes suspicio us for superimposed pneumonia versus aspiration. 4. Lobular low-density mass within the right middle lobe shunting by hyperdense material is again not ed measuring up to approximately 6 cm. A cystic mass of the right middle lobe is again the diagnosis of exclusion. If not already conducted, correlation with bronchoscopy recommended. 5. Stable 4 cm hyperdense focus of the basal right lower lobe. ACT 112: Negative or not required by law. Electronically signed by: Jesse Plunkett M.D. 12/28/2022 5:09 PM
--- NOTE | 2022-12-28 20:43 | Communication Note ---
Date of Service: December 28, 2022 Patient with cough symptoms productive of junky brown sputum. CT chest in a.m. showed "new patchy bilateral airspace opacities, most pronounced within the lower lobes suspicious for superimposed pneumonia versus aspiration." AP HCAP, possible sepsis CS, Ertapenem Addendum : Notified by RN of lab inability to draw blood cultures due to diff icult extraction.
[2022-12-28] MEDS: SIMVASTATIN 20 MG TAB PO SCH (21:29)
[2022-12-28] MEDS: FAMOTIDINE 20 MG TAB PO SCH (21:32)
[2022-12-28] MEDS ORDERED: levETIRAcetam 250 MG in 0.9 % SODIUM CHLORIDE 100 ML IV STA (21:50)
[2022-12-28 22:08] LABS: Hematocrit (blood only) 24.2 % (37.0-47.0); Hemoglobin 8.4 g/dl (12.0-16.0)
[2022-12-28] MEDS: ERTAPENEM SODIUM 500 MG in SYRINGE 0 ML IV SCH (22:17)
[2022-12-29] MEDS: ACETAMINOPHEN 500 MG TAB PO PRN (00:43)
[2022-12-29] MEDS: LEVALBUTEROL 1.25MG/0.5ML NEB INH SCH ×3 (05:25→19:14)
[2022-12-29] MEDS: IPRATROPIUM BROMIDE NEB SOLN 0.02% 2.5 ML VIAL INH SCH ×3 (05:25→19:14)
[2022-12-29] MEDS: LEVOTHYROXINE SODIUM 75 MCG TABLET PO SCH (06:03)
[2022-12-29 06:27] LABS: iSTAT Allen Test Pass; iSTAT Art Bld Gas pCO2 Correct 39 mmHg (35-46); iSTAT Art Bld Gas pH Corrected 7.463 (7.35-7.45); iSTAT Arterial Blood Gas HCO3 28 meg/L (19-24); iSTAT Arterial Blood Gas pCO2 40 mmHg (35-46); iSTAT Arterial Blood Gas pH 7.45 (7.35-7.45); iSTAT Arterial Blood Gas pO2 67 mmHg (80-95); iSTAT Arterial Blood Gas pO2 C 64; iSTAT Carbon Dioxide 29 mmol/L (24-31); iSTAT FiO2 30 %; iSTAT Hematocrit 20 % (37-47); iSTAT Hemoglobin 6.8 g/dl (12.0-16.0); iSTAT Potassium 4.9 mmol/L (3.3-5.0); iSTAT Site R Radial; iSTAT Sodium 135 mmol/L (135-144)
[2022-12-29 07:13] LABS: Hematocrit (blood only) 21.5 % (37.0-47.0); Hemoglobin 7.3 g/dl (12.0-16.0); Mean Corpuscular Hemoglobin 29.1 pg (25.0-34.0); Mean Corpuscular Volume 85.7 fL (80.0-100.0); Mean Platelet Volume 12.4 fL (9.4-12.4); Platelet Count 68 K/uL (130-400); RDW Coefficient of Variation 16.6 % (11.5-14.5); RDW Standard Deviation 51.4 fL (36.4-46.3); Red Blood Count 2.51 M/uL (4.20-5.40); White Blood Count 9.74 K/ul (4.8-10.8)
[2022-12-29 07:31] LABS: BUN Creatinine Ratio 17.8 (10-20); Calcium 7.3 mg/dl (8.6-10.3); Creatinine Clr Calc Pharmacy 10.5 ml/min; Est GFR (Non-African American) 11.2 ml/min; Potassium 5.3 mmol/L (3.5-5.1)
[2022-12-29 07:51] LABS: INR 1.1 (0.9-1.1); Prothrombin Time 11.6 Seconds (9.0-12.0)
[2022-12-29] MEDS: levETIRAcetam 250 MG TAB PO SCH ×2 (07:58→21:09)
[2022-12-29] MEDS: PANTOprazole 40 MG in SYRINGE 0 ML IV SCH ×2 (07:58→21:08)
--- NOTE | 2022-12-29 07:58 | Pulmonary Consultation ---
Date of Consultation December 29, 2022 Assessment & Plan (1) Acute and chronic respiratory failure with hypoxia: (2) Pulmonary edema: (3) ESRD (end stage renal disease) on dialysis: (4) COPD (chronic obstructive pulmonary disease): (5) Non-small cell lung cancer (NSCLC): Laterality: right Qualified Code(s): C34.91 - Malignant neoplasm of unspecified part of right bronchus or lung (6) CHF (congestive heart failure): (7) Metastasis to brain: (8) New onset seizure: Plan IMPRESSION: Unfortunate 62-year-old female with advanced metastatic cancer with new brain lesion resulting in breakthrough seizure activity who has since developed retroperitoneal bleed requiring transfusion and who has subsequently become hemodialysis intolerant and was rapid response x2 yesterday while undergoing hemodialysis treatment. Pulmonary medicine consulted for additional recommendations in this unfortunately complex individual. RECOMMENDATIONS: 1. Acute on chronic hypoxic respiratory failure - * Likely secondary to pulmonary edema. * CT imaging studies reviewed which feels worsening pulmonary edema on a patient with underlying interstitial lung disease as well as large RIGHT-sided lung mass. * Unfortunately, the patient has multiple ongoing conditions from pulmonary's perspective including COPD, interstitial lung disease, and primary lung CA with large mass. The patient has done surprisingly well to this point with these comorbid conditions, however she is now intolerant of hemodialysis so they are unable to remove fluid which is unfortunately resulted in pulmonary edema which has resulted in worsening hypoxia. While NPPV is a temporizing measure for this patient, if they are unable to remove volume, this is not a long-term option for the patient. Additionally, the patient is now requiring blood products which will only worsen her volume status. * I did have a lengthy discussion with the patient and her daughter at bedside and discussed as much. They recognize the multitude of underlying conditions which are contributing to her decline. * We did discuss that from a pulmonary perspective, we can continue with BiPAP as needed. I did report that if the patient were to require require endotracheal intubation, this would not be a lifesaving measure overall as the patient still has multiple conditions that are essentially uncorrectable moving forward. We did explain that if the patient were to undergo intubation, she would still have metastatic lung cancer as well as end-stage renal disease requiring hemodialysis. * Patient was appropriately emotional during these conversations. The daughter is at bedside to offer support. We did discuss that options moving forward may be best suited to focus on a more comfort approach. * Will engage palliative medicine again as I feel they could provide appropriate care for the patient moving forward. 2. COPD - * Greater than [id number] history of smoking. * Currently on Breo Ellipta and albuterol rescue inhaler at home. * Follows primarily with [facility], but has recently seen our practice in office. * She has not had pulmonary function testing performed in 2019. They have been ordered, but are pending at this point. 3. Chronic respiratory failure with hypoxia - * On a baseline of 2 L at all times. Per outpatient notes, the patient had not been consistent with her supplemental oxygen. * Currently requiring 4 L at this time. 4. RIGHT middle lobe and RIGHT lower lobe mass - * Known adenocarcinoma of the RIGHT lobe being followed by [facility] hematology/oncology and radiation oncology. * No need or advantage for pulmonary intervention at this time. The lesions are obviously metastatic at this point and the patient is likely past the point of ongoing aggressive intervention. Thank you for allowing us to participate in the care of this complex patient. We will continue to follow with the patient for now. Supervising Physician Co-Signing Physician Notes Patient seen and examined. EMR reviewed. Discussed with JYOTI and agree with assessment plan as noted. Met with patient as well as with , daughter, and grandson at bedside. We discussed her current situation. Her CT scan appears to be consistent with pulmonary edema. I advised her that if we are unable to perform dialysis, is unlikely that respiratory adjuvants are going to be successful in improving her overall respiratory status. In addition, it is unlikely that we would be able to get her out of the hospital. We discussed multiple end-of-life issues including potential palliative care if dialysis is unable to be continued. She understands the severity of her illness and is interested in comfort care but for right now would like to focus on doing everything that she can to try and improve. I do not think noninvasive positive pressure ventilation or intubation mechanical ventilation would offer any significant benefit as it would not be a bridge to improving her ability to tolerate dialysis. Her family appears to understand. I did advise the patient that we have very good medications to treat symptoms at the end of life. She is taken it under advisement and we will continue to see what progress she makes over the next several days. An additional 30 minutes critical care time including end-of-life issues was spent in evaluation management and stabilization of this patient History of Present Illness Reason for Consultation: Acute respiratory failure Attending Physician: Janes Sal MD History of Present Illness Patient is an unfortunate 62-year-old female with a significant past medical history of non-small cell lung cancer of the RIGHT middle lobe diagnosed in 2017, interstitial lung disease, COPD, end-stage renal disease on hemodialysis Thursday/Thursday/Thursday, coronary artery disease, CHF. The patient presented to this institution on 12/15 with a new onset seizure and found to have new metastatic lesion to the brain. She underwent palliative stereotactic radiation treatments to the brain as well as dose of Decadron. She was also found to have an acute retroperitoneal hemorrhage with hemoperitoneum. There is no active extravasation noted on scan. The case was initially discussed with interventional radiology, however they recommended conservative measures. Patient has had pancytopenia and is now requiring transfusions. Unfortunately, the patient has now become intolerant of dialysis. She was a rapid response x2 yesterday during dialysis. Unfortunately, the patient's oxygen requirement has worsened and she is now requiring BiPAP. Pulmonary medicine consulted for additional recommendations. Upon evaluation at bedside, the patient is awake, alert, and oriented with family at bedside. She reports that she is feeling in no distress at this time with her breathing. We did discuss hospitalization and her decline. The patient becomes incredibly emotional and states "I do not want to ." Her daughter is at bedside and offered support. Otherwise, the patient offers no new complaints at this time. Allergies Allergy/AdvReac Type Severity Reaction Status Date / Time aspirin Allergy Severe EDEMA Verified 12/14/22 22:48 FACE/LIPS/TONGUE dipyridamole Allergy Severe "Bad Verified 12/14/22 22:48 reaction" per records naproxen Allergy Severe EDEMA Verified 12/14/22 22:48 FACE/LIPS/TONGUE atropine Allergy Intermediate Dyspnea/WHE Verified 12/14/22 22:48 EZING vancomycin Allergy Intermediate Rash/tommy Verified 12/14/22 22:48 syndrome maprotiline Allergy Unknown Unknown Verified 12/14/22 22:48 latex Allergy Unknown Verified 12/14/22 22:49 valacyclovir [From Valtrex] AdvReac Severe "FREAKED Verified 12/14/22 22:48 OUT HAD TO BE HOSPITALIZED". linezolid AdvReac Intermediate Thrombocyto Verified 12/14/22 22:48 penia salicylates AdvReac Intermediate Gastrointestinal Verified 12/14/22 22:48 Upset Home Medications Medication Instructions Recorded Confirmed Type albuterol sulfate 2.5 mg/3 mL 2.5 mg inhalation DIRECTED PRN 11/02/18 12/14/22 History (0.083 %) solution for nebulization Shortness Of Breath Or Wheezing hydralazine 25 mg tablet 25 mg PO TID 11/02/18 12/14/22 History levothyroxine 75 mcg tablet 75 mcg PO QAM 11/02/18 12/14/22 History simvastatin 20 mg tablet 20 mg PO HS 11/02/18 12/14/22 History amlodipine 10 mg tablet 10 mg PO QAM 07/14/19 12/14/22 History pantoprazole 40 mg tablet,delayed 40 mg PO DAILYBB 07/14/19 12/14/22 History release metoprolol succinate 25 mg 25 mg PO QAM 11/19/19 12/14/22 History tablet,extended release 24 hr (Toprol XL) calcium acetate(phosphat bind) 667 667 mg PO TIDM 05/20/21 12/14/22 History mg capsule famotidine 20 mg tablet 20 mg PO HS 10/18/21 12/14/22 History aprepitant 80 mg capsule (Emend) 80 mg PO QAM 12/03/22 12/14/22 History benzonatate 200 mg capsule 200 mg PO TID PRN Cough 12/03/22 12/14/22 History fluticasone furoate 200 1 inh inhalation QA 12/03/22 12/14/22 History mcg-vilanterol 25 mcg/dose inhalation powder (Breo Ellipta) sucralfate 100 mg/mL oral 10 ml PO QID #420 mL 12/03/22 12/14/22 Rx suspension (Carafate) Patient History Medical History (Updated 12/29/22 @ 13:14 by Judi Naidu DNP) Acute on chronic respiratory failure with hypoxia and hypercapnia Advanced care planning/counseling discussion Anemia of chronic renal failure Anxiety AV fistula LUE Breast cancer DX 2000 s/p chemo/xrt CAD (coronary artery disease) Cancer related pain Chronic diarrhea Chronic hypoxemic respiratory failure Cirrhosis per records COPD (chronic obstructive pulmonary disease) Discussion about advance care planning held with family member Dyspnea and respiratory abnormalities Esophageal polyp ESRD (end stage renal disease) dialysis Thursday//Thursday ([place]) THIS WEEK D/T UPCOMING PROCEDURE ON 08/21/22 DIALYSIS , THU AND THU GERD (gastroesophageal reflux disease) History of abdominal paracentesis Hyperlipidemia Hypertension Hypothyroidism Interstitial lung disease Multiple pulmonary nodules determined by computed tomography of lung Nausea Non-ischemic cardiomyopathy Non-small cell lung cancer (NSCLC) dx 04/2019; s/p XRT; RML, RLL. Follows with [facility], R-Onc On home oxygen therapy 2L O2 HS Palliative care by specialist Poor historian Splenomegaly, not elsewhere classified w/ multiple hypodense masses stable on fall 2019 imaging and present since at least 2005 Thrombocytopenia chronic, 2/2 cirrhosis. Surgical History H/O partial thyroidectomy GOITER History of bronchoscopy History of cardiac cath 2013- NO STENTS History of colonoscopy History of esophagogastroduodenoscopy (EGD) History of tooth extraction Hx of lumpectomy LEFT S/P arteriovenous (AV) fistula creation left arm > upper S/P laparoscopic cholecystectomy 06/2020 [facility] Family History Other Family history non-contributory No family history of adverse response to anesthesia Social History Smoking Status: Unknown if ever smoked Tobacco Type: Cigarettes Preferred Language: Georgian Communication Ability: Effective [employer] Required: No Beliefs That Will Affect Care: Spiritual marital status: Current Living Situation: Spouse and Family current occupational status: disabled How many Children do You have: 2 Feels Safe at Home: Yes Assistive Devices: Oxygen - Continuous Review of Systems Review of Systems: A complete 10 point review of systems was reviewed with the patient with pertinent positives and negatives as per history of present illness. All else were negative. Physical Exam Physical Exam: VITAL SIGNS - Vital signs and nursing notes were reviewed. GENERAL - 62-year-old female appearing her stated age who is in no acute distress. Communicates well with provider and answers questions appropriately. NOSE - Midline and without cyanosis. MOUTH/OROPHARYNX - Without perioral cyanosis. NECK - Neck with FROM. LUNGS - Auscultation reveals diminished breath sounds with bibasilar rales. CARDIAC - RRR with S1/S2. No murmur, rubs, or gallops appreciated. ABDOMEN - Abdominal inspection demonstrates protuberant abdomen. BS normoactive all four quadrants. No TTP. Ascitic abdomen. EXTREMITIES - No peripheral cyanosis. No pretibial edema present. +3/5 radial palpated throughout. PSYCH - A&Ox3 and cooperates fully with examiner. Pt is very pleasant and interacts well with examiner. Results & Data Results & Data Vital Signs (Past 12 Hours) Vital Signs Temp Pulse Pulse Pulse Resp BP Pulse Ox 12/29/22 07:51 36.9 C 90 85 18 144/82 H 100 12/29/22 05:26 70 15 100 12/29/22 05:26 72 12 100 12/29/22 03:33 12/29/22 02:36 36.3 C L 77 20 130/76 100 12/29/22 02:13 82 22 100 12/28/22 23:00 75 12/29/22 00:41 86 23 99 12/28/22 20:00 12/28/22 22:36 36.3 C L 88 22 123/53 L 100 12/28/22 22:42 90 18 100 O2 Del Method O2 Flow Rate FiO2 12/29/22 07:51 Nasal Cannula 4 12/29/22 05:26 30 12/29/22 05:26 BiPAP 30 12/29/22 03:33 30 12/29/22 02:36 BiPAP 30 12/29/22 02:13 30 12/28/22 23:00 12/29/22 00:41 30 12/28/22 20:00 BiPAP 30 12/28/22 22:36 BiPAP 30 12/28/22 22:42 30 PG Care Time/CCT Total # of Minutes Spent Total Time Spent with Patient: Total time spent is greater than 50% in coordination of care (as documented) at patient's floor/unit and/or counseling patient: Coding Level of Care Code 99772 CRITICAL CARE 1ST 30-74M Diagnoses Acute and chronic respiratory failure with hypoxia J96.21 Pulmonary edema J81.1 ESRD (end stage renal disease) on dialysis N18.6; Z99.2 COPD (chronic obstructive pulmonary disease) J44.9 Non-small cell lung cancer (NSCLC) C34.91 Laterality: right CHF (congestive heart failure) I50.9 Metastasis to brain C79.31 New onset seizure R56.9
[2022-12-29] MEDS: FLUTICASONE/VILANTEROL 200/25MCG 14 PUFFS/INHALER INH SCH (07:59)
[2022-12-29] MEDS: dexAMETHasone 4 MG in SYRINGE 0 ML IV SCH ×4 (08:00→21:07)
[2022-12-29] MEDS: SUCRALFATE 1 GM/10 ML UDC PO SCH ×4 (08:04→21:08)
[2022-12-29] MEDS: CALCIUM ACETATE 667 MG CAP/TAB PO SCH ×3 (08:04→16:51)
[2022-12-29] MEDS: FOLIC ACID 1 MG TAB PO SCH (08:04)
--- NOTE | 2022-12-29 08:35 | Nephrology Progress Note ---
Date of Service December 29, 2022 Assessment & Plan Admission and Anticipated Discharge Date Admission Date: December 15, 2022 Subjective Assessment & Plan (1) ESRD (end stage renal disease) on dialysis: Plan: on MWF HD normally Had a very difficult dialysis yesterday--coded and Unresponsive. Now also has issues with Bleeding. Resp failure. She is just too unstable for dialysis at this time. will try again tomorrow if we are still planning to do dialysis. Subjective Seen for ESRD. very weak and Sick. She is crying and saying " I dont want to and please do everything you can" . Very difficult dialysis yesterday. Review of Systems Review of Systems: All other systems were reviewed and negative except as noted in HPI Physical Exam Physical Exam: General exam: Appears comfortable, on BIPAP HEENT: Pupils are equal and reactive to light Neck: No JVD, neck is supple trachea is midline Respiratory system: Clear breath sounds bilaterally. Gastrointestinal: Abdomen is soft, non distended, non tender, bowel sounds are present CVS: Regular rate and rhythm. No murmurs, rubs or gallops Musculoskeletal: No joint or muscle tenderness Extremities: Non tender, no edema, peripheral pulses are present Neuro: no tremors, no focal neurological deficits Skin: No rashes Results & Data Vital Signs (Past 12 Hours) Vital Signs Temp Pulse Pulse Pulse Resp BP Pulse Ox 12/29/22 07:51 36.9 C 90 85 18 144/82 H 100 12/29/22 05:26 70 15 100 12/29/22 05:26 72 12 100 12/29/22 03:33 12/29/22 02:36 36.3 C L 77 20 130/76 100 12/29/22 02:13 82 22 100 12/28/22 23:00 75 12/29/22 00:41 86 23 99 12/28/22 22:36 36.3 C L 88 22 123/53 L 100 12/28/22 22:42 90 18 100 O2 Del Method O2 Flow Rate FiO2 12/29/22 07:51 Nasal Cannula 4 12/29/22 05:26 30 12/29/22 05:26 BiPAP 30 12/29/22 03:33 30 12/29/22 02:36 BiPAP 30 12/29/22 02:13 30 12/28/22 23:00 12/29/22 00:41 30 12/28/22 22:36 BiPAP 30 12/28/22 22:42 30
--- NOTE | 2022-12-29 09:17 | Gastrointestinal Consultation ---
Date of Consultation December 29, 2022 Assessment & Plan (1) Retroperitoneal bleed: Pt is a 62 yo female seen today for 1 episode of BRBPR w formed stool. Abd soft, non tender, rectal exam w soft, brown stools wo blood noted. She has complicated medical hx w new onset seizure, hx of diastoic HF, COPD/ILD on O2, ESRD, on HD, CAD, PVD, L breast ca s/p sx and XRT. 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 She is anemia but likely related to chronic diseases and L retroperitoneal hemorrhage. Suspect rectal bleeding may be related to hemorrhoids vs perianal causes. Given her unstable medical issues, will defer endoscopic intervention. Pls continue for further s/s of GI bleeding. May cover w PPI BID for now. Recall GI prn. Supervising Physician Co-Signing Physician Notes Attg add: I interviewed and examined pt, reviewed chart and labs. Pt with small volume rectal bleeding, anemia, recent R/P hemorrhage. Plan as above. History of Present Illness Reason for Consultation: GI bleed Requesting Physician: Dr. Janes Sal Attending Physician: Dr. Cronell Hayes History of Present Illness Pt is a 62 yo female w new onset seizure, hx of diastoic HF, COPD/ILD, ESRD, on HD, CAD, PVD, L breast ca s/p sx and XRT seen today for GI bleeding. Pt has an episode of large BM yesterday and RN noticed bright red blood on stool. Stool is otherwise formed, and not dark/black or tarry. She does have hemorrhoids and prior rectal bleeding at home. Denies associated abd pain, n/v. Pt is anemic w most recent H/H of 03/27. She has a large L retroperitoneal hemorrhage encasing L kidney. INR 1.1. 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 Respiratory status worsen as well. Prior EGD/colonoscopy in 2020, 2021 showed gastric polyps, gastritis, colon polyps Allergies Allergy/AdvReac Type Severity Reaction Status Date / Time aspirin Allergy Severe EDEMA Verified 12/14/22 22:48 FACE/LIPS/TONGUE dipyridamole Allergy Severe "Bad Verified 12/14/22 22:48 reaction" per records naproxen Allergy Severe EDEMA Verified 12/14/22 22:48 FACE/LIPS/TONGUE atropine Allergy Intermediate Dyspnea/WHE Verified 12/14/22 22:48 EZING vancomycin Allergy Intermediate Rash/tommy Verified 12/14/22 22:48 syndrome maprotiline Allergy Unknown Unknown Verified 12/14/22 22:48 latex Allergy Unknown Verified 12/14/22 22:49 valacyclovir [From Valtrex] AdvReac Severe "FREAKED Verified 12/14/22 22:48 OUT HAD TO BE HOSPITALIZED". linezolid AdvReac Intermediate Thrombocyto Verified 12/14/22 22:48 penia salicylates AdvReac Intermediate Gastrointestinal Verified 12/14/22 22:48 Upset Home Medications Medication Instructions Recorded Confirmed Type albuterol sulfate 2.5 mg/3 mL 2.5 mg inhalation DIRECTED PRN 11/02/18 12/14/22 History (0.083 %) solution for nebulization Shortness Of Breath Or Wheezing hydralazine 25 mg tablet 25 mg PO TID 11/02/18 12/14/22 History levothyroxine 75 mcg tablet 75 mcg PO QAM 11/02/18 12/14/22 History simvastatin 20 mg tablet 20 mg PO HS 11/02/18 12/14/22 History amlodipine 10 mg tablet 10 mg PO QAM 07/14/19 12/14/22 History pantoprazole 40 mg tablet,delayed 40 mg PO DAILYBB 07/14/19 12/14/22 History release metoprolol succinate 25 mg 25 mg PO QAM 11/19/19 12/14/22 History tablet,extended release 24 hr (Toprol XL) calcium acetate(phosphat bind) 667 667 mg PO TIDM 05/20/21 12/14/22 History mg capsule famotidine 20 mg tablet 20 mg PO HS 10/18/21 12/14/22 History aprepitant 80 mg capsule (Emend) 80 mg PO QAM 12/03/22 12/14/22 History benzonatate 200 mg capsule 200 mg PO TID PRN Cough 12/03/22 12/14/22 History fluticasone furoate 200 1 inh inhalation QAM 12/03/22 12/14/22 History mcg-vilanterol 25 mcg/dose inhalation powder (Breo Ellipta) sucralfate 100 mg/mL oral 10 ml PO QID #420 mL 12/03/22 12/14/22 Rx suspension (Carafate) Patient History Medical History Acute on chronic respiratory failure with hypoxia and hypercapnia Advanced care planning/counseling discussion Anemia of chronic renal failure AV fistula LUE Breast cancer DX 2000 s/p chemo/xrt CAD (coronary artery disease) Cancer related pain Chronic diarrhea Chronic hypoxemic respiratory failure Cirrhosis per records COPD (chronic obstructive pulmonary disease) Discussion about advance care planning held with family member Dyspnea and respiratory abnormalities Esophageal polyp ESRD (end stage renal disease) dialysis Thursday//Thursday ([place]) THIS WEEK D/T UPCOMING PROCEDURE ON 08/21/22 DIALYSIS , THU AND THU GERD (gastroesophageal reflux disease) History of abdominal paracentesis Hyperlipidemia Hypertension Hypothyroidism Interstitial lung disease Multiple pulmonary nodules determined by computed tomography of lung Nausea Non-ischemic cardiomyopathy Non-small cell lung cancer (NSCLC) dx 04/2019; s/p XRT; RML, RLL. Follows with [facility], R-Onc On home oxygen therapy 2L O2 HS Palliative care by specialist Poor historian Splenomegaly, not elsewhere classified w/ multiple hypodense masses stable on fall 2019 imaging and present since at least 2005 Thrombocytopenia chronic, 2/2 cirrhosis. Surgical History H/O partial thyroidectomy GOITER History of bronchoscopy History of cardiac cath 2013- NO STENTS History of colonoscopy History of esophagogastroduodenoscopy (EGD) History of tooth extraction Hx of lumpectomy LEFT S/P arteriovenous (AV) fistula creation left arm > upper S/P laparoscopic cholecystectomy 06/2020 [facility] Family History Other Family history non-contributory No family history of adverse response to anesthesia Social History Smoking Status: Unknown if ever smoked Tobacco Type: Cigarettes Preferred Language: Wallisian Communication Ability: Effective Pest Control Specialist Required: No Beliefs That Will Affect Care: Spiritual marital status: Current Living Situation: Spouse and Family current occupational status: disabled How many Children do You have: 2 Feels Safe at Home: Yes Assistive Devices: Oxygen - Continuous Review of Systems Review of Systems: All systems reviewed & are unremarkable except as noted in HPI & below Physical Exam Constitutional: + thin, + frail appearing and comfortable Eyes: PERRL, conjunctivae normal, anicteric sclerae ENMT: external ear and nose normal, oropharynx normal Respiratory: + accessory muscles used, diminished overall lung sounds Cardiovascular: RRR, no murmur, no edema Gastrointestinal (Abdomen): normal bowel sounds, soft, nontender, no hepatosplenomegaly Rectal Exam: + hemorrhoids brown stool in rectal vault, no blood noted Skin: no rashes, warm and dry no jaundice Psychiatric: A+Ox3, euthymic affect Lymphatic: no lymphedema Results & Data Vital Signs (Past 12 Hours) Vital Signs Temp Pulse Pulse Pulse Resp BP Pulse Ox 12/29/22 07:51 36.9 C 90 85 18 144/82 H 100 12/29/22 05:26 70 15 100 12/29/22 05:26 72 12 100 12/29/22 03:33 12/29/22 02:36 36.3 C L 77 20 130/76 100 12/29/22 02:13 82 22 100 12/28/22 23:00 75 12/29/22 00:41 86 23 99 12/28/22 22:36 36.3 C L 88 22 123/53 L 100 12/28/22 22:42 90 18 100 O2 Del Method O2 Flow Rate FiO2 12/29/22 07:51 Nasal Cannula 4 12/29/22 05:26 30 12/29/22 05:26 BiPAP 30 12/29/22 03:33 30 12/29/22 02:36 BiPAP 30 12/29/22 02:13 30 12/28/22 23:00 12/29/22 00:41 30 12/28/22 22:36 BiPAP 30 12/28/22 22:42 30
--- NOTE | 2022-12-29 11:43 | Palliative Care Progress Note ---
Date of Service December 29, 2022 Assessment & Plan (1) Palliative care by specialist: Plan: Met with pt/family. Provided overview of Palliative Medicine, a subspecialty that provides specialized medical care for people living with a serious illness by offering a focus on quality of life. Palliative Medicine is often conflated with hospice: I advised patient/family that Palliative and hospice can be partners but we are not the same. It is important to understand the difference so that we may be informed, and not afraid. Palliative Medicine works to improve QOL through reduction of symptom burden/more control over their illness, for both the patient and family. Palliative medicine clinicians are board certified, specially-trained and another member of the patient's medical care team. We often provide an extra layer of support because our care is based on the needs of the patient, not the prognosis; as such, it's appropriate at any age/advancing stage of a serious illness and can be provided along with curative treatment. Palliative Medicine clinicians are also trained in advanced communication methodologies, to facilitate complex discussions about advanced illness planning, which are needed to help assure that the treatment choices match the patient's goals, aka delivering Goal Concordant care. Finally, we discussed that hospice is a visiting nurse service that focuses on care delivered at the very end of life for patients with terminal illness, with life expectancy less than 6 month. For Oncology Patients: Patient's Palliative Prognostic Score (PaP) Score = 16.5 points / Interpretation:30-day survival probability <30% (0 - 5.5: 30-day survival probability >70% | 5.6 - 11.0: 30-day survival probability 30-70% | 11.1 - 17.5: 30-day survival probability <30%) Patient's Palliative Prognostic Index (PPI) Score = 11 points / Note:If the PPI is greater than 6.0, survival is less than three weeks (Sensitivity - 80%; Specificity - 85%). (2) Advanced care planning/counseling discussion: Plan: I met with Mrs. Grant and family: , dtrs x3, grandson x1 at bedside, face to face to 60min: We had a detailed conversation Re goals of care, her advancing end organ failure issues and her cancer. We reviewed that all chronic/progressive disease has a declining trajectory over time where facets of patient self-identity and independence are lost. Every acute event leads to a further decline, resulting- many times, in a new baseline. Advised that the greatest priority is to determine what matters most to pt, then family and to develop a plan of care that is aligned with those priorities. asked about the status of her cancer and what RX she would be getting. We reviewed that some cancer patients have a poor prognosis from diagnosis e.g. lung cancer, pancreatic cancer and most biliary tract cancers, and any patient with metastatic solid cancer, acute leukemia or high grade lymphoma who will not be receiving systemic chemotherapy has a prognosis of less than 6 months. Notable exceptions to this are patients with metastatic breast or prostate cancer as these cancers may have an indolent course. Lastly, I reviewed that the single most important predictive factor in cancer is performance status: a measure of how much a patient can do for themselves, their activity and energy level. If patients are spending more than 50% of their time in a chair or lying down, prognosis is estimated to be about 3 months or less. Mary Lou is PS 3-4, not improving, with worsening functional status. Mary Lou is very scared to and this is her rationale for continuing to desire full code and aggressive medical care. She understands she may code again on HD but feels we wouldnt offer HD if we didnt think it would help her live and "get better." Ultimately she may not be able to transition her mindset to end of life until medical teams stop offering interventions felt to be hi risk/low yield - being offered these interventions is creating disruption in her process of coming to understand the terminal nature of her illnesses. We spoke about going home with hospice and shifting the focus to be about maximizing time with family. She kept saying she isnt ready to and views staying full code as fighting. I advised her sometimes what we are fighting for shifts ie from cure to comfort or from hi risk to quality of life/family time. I asked them to further discuss as a family. We discussed CPR survival: only about 10% of patients who have [id number] sudden cardiac arrest survive to hospital disc harge, with many survivors having neurologic impairment. This rate is even lower among patients with serious coexisting conditions, ie chance of survival to hospital discharge for in-hospital CPR in older people is low to moderate (15%) and decreases with age, comorbidities, performance status and frailty: for pts > 70 yo, more than half of the patients who initially survived resuscitation in the hospital before hospital discharge. The pooled survival to discharge after in-hospital CPR was 18% for patients between 70 and 79 years old, 15% for patients between 80 and 89 years old and 11% for patients of 90 years and older. (Jose NIX, Juan LJ, Domitila F, et al. Trends in short- and long-term survival among [id number] cardiac arrest patients alive at hospital arrival. C irculation 2014;130:8610-8721. AND Zo Charles, Mali T, Angelo R, et al. Performance of clinical risk scores to predict mortality and neurological outcome in cardiac arrest patients. Resuscitation 2019;136:21-29.) I told them I feel the window of time we have is growing shorter, and at this junction it is more a question of where does she want to be at the end of her life. Palliative prognostics support a short anticipated survival which may further decrease if she has another arrest during HD. If HD was stopped I anticipate survival of days to a week. This meeting was extremely emotional and tearful. At one point pt was sobbing as she admitted she was afraid to and of dying. Her dtr laid in bed next to her and provided additional comfort. They all expressed their unwavering love and devotion to patient and repeatedly assured her they do not want to see her suffer and feel that continued aggressive interventions sush as hi risk HD + full code, etc would not be in line with the comfort and peaceful EOL they wish for her to have at home, with the family there to support her through the final chapter of life. I will try to follow up tomorrow. I left them with my contact info. They were all appreciative of the conversation. Additionally, dtrs stated they have FMLA forms from [employer] that they need completed : forms completed by me and hand delivered to daughters. (3) Anxiety: Plan: due to progressive worsening medical illness. She would like to try prn Ativan, will order trial of Ativan 0.5mg PO q6h prn for anxiety, panic or insomnia. (4) Cancer related pain: Plan: patient states she is having pain but meds for now are adequate, does not want changes (5) Nausea: Plan: Will add trial of IV Zofran prn (6) ESRD (end stage renal disease) on dialysis: (7) Dyspnea and respiratory abnormalities: (8) Acute and chronic respiratory failure with hypoxia: (9) Acute on chronic respiratory failure with hypoxia and hypercapnia: (10) Retroperitoneal bleed: (11) Pulmonary edema: (12) Metastasis to brain: (13) Non-small cell lung cancer (NSCLC): (14) Interstitial lung disease: Plan Extensive family meeting as noted above. No decision on code, wants to stay full code/aggressive care for now. Family does not agree and desire a DNR/DNI + comfort focus however they want patient to be in agreement. Daughters asking for their FMLA forms to be completed, pending arrival via fax from [facility] HR - primary team/CM to handle Ativan for anxiety/insomnia and Zofran IV for nausea have been ordered She does not want any change to cancer pain regimen for now She understands hi mortality risk of coding again during HD and nevertheless she wants to proceed with HD and any other therapies which are offered. She believes that if therapies are being offered it is medical teams feel they will make her better and this aligns with her desired goal of care, "to get better." Would rnote the best interest standards re CPR and other invasive treatments that are sometimes desired no matter how small the benefits and how high the burdens. In these cases, patient preferences should generally be honored, but clinical judgment must still be exercised to maximize benefit and minimize harm. "Doing everything" does not mean everything beyond which there is no medical benefit - this falls into a best interest standard: Do that which will maximize good and limit harm. This requires a heavy dependence on Quality of Life issues. Providers are under no obligation to provide/offer treatments that will not meet the humanistic goals of medicine: to make better or cure. I have updated nursing, primary team, CCM and nephrology. Thank you for allowing us to participate in the ongoing care of this patient. Please don't hesitate to call or page with any additional concerns. Dr. Judi Naidu DNP Director, Palliative Care Admission and Anticipated Discharge Date Admission Date: December 15, 2022 Subjective Pall Med asked to re enage with pt this admission due to further continued decline. 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 Had episode of BRBPR, noted to be anemic which may be due to her chronic diseases and she has a has a large L retroperitoneal hemorrhage encasing L goldie santacruz. GI eval was done and they noted the rectal bleeding may be related to hemorrhoids vs perianal causes however given her unstable medical issues, endoscopic intervention is deferred. Nephrology notes reviewed, pt tearful and requesting "do everything I want to live." She is now HD intolerant, therefore unable to remove fluid which led to pulmonary edema with subsequent worsening hypoxia; pulm med has trialed some BiPAP but noted further aggressive care such as ventilator support will not improve, reverse or cure her overall terminal issues. Numerous family meetings have been held with pt an family by primary team pulmonary med and nephrology. Review of Systems Review of Systems: All systems reviewed & are unremarkable except as noted in Subjective Physical Exam Constitutional: + acute distress, + cachectic and + frail appearing Eyes: PERRL, conjunctivae normal, anicteric sclerae ENMT: Mouth: + dry oral mucous membranes, + edentulous and + poor dentition Neck: normal visual inspection Respiratory: + uses accessory muscles, + prolonged expiratory phase and + pursed lip breathing Cardiovascular: Rate/Rhythm: + tachycardic Gastrointestinal (Abdomen): Inspection/Auscultation: + abdomen distended Percussion/Palpation: + abdomen tender, + guarding and + abdomen rigid Musculoskeletal: generalized weakness Skin: + turgor decreased, + skin tightening, + skin atrophy and + dry skin Neurologic: normal touch/pain/proprioception Psychiatric: Eye Contact: + fair eye contact Cognition: recent memory grossly intact, remote memory grossly intact and attention grossly intact Insight: + limited insight Judgment: + poor judgement Results & Data Vital Signs (Past 12 Hours) Vital Signs Temp Pulse Pulse Pulse Resp BP Pulse Ox 12/29/22 11:27 36.4 C L 89 20 130/59 L 99 12/29/22 08:00 12/29/22 07:51 36.9 C 90 85 18 144/82 H 100 12/29/22 05:26 70 15 100 12/29/22 05:26 72 12 100 12/29/22 03:33 12/29/22 02:36 36.3 C L 77 20 130/76 100 12/29/22 02:13 82 22 100 12/29/22 00:41 86 23 99 O2 Del Method O2 Flow Rate FiO2 12/29/22 11:27 Nasal Cannula 4 12/29/22 08:00 Nasal Cannula 4 12/29/22 07:51 Nasal Cannula 4 12/29/22 05:26 30 12/29/22 05:26 BiPAP 30 12/29/22 03:33 30 12/29/22 02:36 BiPAP 30 12/29/22 02:13 30 12/29/22 00:41 30 Laboratory Results data reviewed Diagnostic Findings data reviewed PG Care Time/CCT Total # of Minutes Spent Total Time Spent: 98 Total Time Spent with Patient: Total time spent is greater than 50% in coordination of care (as documented) at patient's floor/unit and/or counseling patient: 60min face to face for ACP 38min with patient, chart review, discussion with specialists Advanced Care Planning 28179 Advanced Care Planning 30 Min 88808 Advanced Care Planning Additional 30 Min [place] [address] SUB INP/OBS CARE 3/50MIN Patient Type Established History Comprehensive Exam Comprehensive Medical Decision Making High Complexity Diagnoses Palliative care by specialist Z51.5 Advanced care planning/counseling discussion Z71.89 Anxiety F41.9 Cancer related pain G89.3 Nausea R11.0 ESRD (end stage renal disease) on dialysis N18.6; Z99.2 Dyspnea and respiratory abnormalities R06.00; R06.89 Acute and chronic respiratory failure with hypoxia J96.21 Acute on chronic respiratory failure with hypoxia and hypercapnia J96.21; J96.22 Retroperitoneal bleed R58 Pulmonary edema J81.1 Metastasis to brain C79.31 Non-small cell lung cancer (NSCLC) C34.91 Laterality: right Interstitial lung disease J84.9 Additional Codes Advanced Care Planning - 18095 Advanced Care Planning 30 Min: 36933 Advanced Care Planning 30 Min ([id number]) Advanced Care Planning - 38271 Advanced Care Planning Additional 30 Min: 56695 Advanced Care Planning Additional 30 Min ([id number]) (13) Non-small cell lung cancer (NSCLC) Laterality: right Qualified Code(s): C34.91 - Malignant neoplasm of unspecified part of right bronchus or lung
--- NOTE | 2022-12-29 17:24 | Hospitalist Progress Note ---
Date of Service December 29, 2022 Assessment & Plan (1) New onset seizure: Plan: New onset seizure Secondary to increased intracranial pressure secondary to tumorigenic edema Secondary to brain metastasis --EEG:this EEG was normal during wakefulness and light sleep. Despite her CT scan showing a right frontal mass with edema, no focal abnormalities, potentially epileptogenic discharges, or abnormal slow activity was seen. --MRI Brain:The examination is degraded by motion artifact. The examination is also significantly suboptimal without IV contrast. Again seen is a large focus of edema within the high right frontoparietal region. This remains highly suspicious for underlying mass lesion or metastatic disease. This cannot be further evaluated without IV contrast. There is effacement of the overlying cortical sulci. No midline shift is seen. No additional similar appearing foci of edema are identified throughout the left hemisphere. -- Continue Keppra Continue Decadron Appreciate neurology input Seizure precautions Continue radiation therapy for brain metastasis Appreciate palliative care input and recommendation Likely will need placement on discharge PT OT recommended home --Plan to start Decadron taper course upon discharge: 40 mg p.o. 4 times daily for 7 days, then 3 times daily for 7 days, then twice daily for 7 days, daily for 7 days and stop -- Radiation therapy per oncology Acute retroperitoneal hemorrhage with hemoperitoneum Acute blood loss anemia In setting of chronic thrombocytopenia --CTA:Moderate to severe stenosis at the origin of the left common iliac artery. Moderate stenosis at the origin of the SMA. Hemorrhage in the left retroperitoneum. No definite evidence for active bleeding. Severely atrophic right kidney with nonspecific small hypodense lesions. Probable subcapsular hematoma involving the left kidney. Heterogeneous masslike consolidation again noted in the right middle lobe and patchy consolidations and groundglass opacities in bilateral lower lobes, concerning for an infectious/inflammatory process and/or neoplasm. Hypodense small lesions again seen throughout the spleen. Splenomegaly. Atherosclerotic changes of the vasculature. Mild aneurysmal dilatations of the abdominal aorta. Similar moderate stenoses in the mid and distal abdominal aorta. No abdominal aortic dissection. Small left and trace right pleural effusions. --CT ABD:Large acute retroperitoneal hemorrhage encasing the atrophic left kidney has increased in size from the 12/25/2022 exam's and again demonstrates intrapelvic extension with increasing moderate hemoperitoneum. No active extravasation identified on today's exam. Stable appearance of the lung bases. Cirrhotic liver. Unchanged appearance of the spleen with splenomegaly. --INR normal --S/P PRBC, platelet transfusion Monitor H&H and transfuse as needed Appreciate surgery input No extravasation seen on CT Conservative management with transfusion as needed for now Discussed with interventional radiology on 12/25/2022(Dr.Kari Mcmullen) and 12/26/2022 (Dr.Mark Uribe)--recommends conservative management Repeat CT abdomen showed mildly decreased hemoperitoneum on 12/27/22 Appreciate palliative care input Acute on chronic respiratory failure with hypoxia Volume overload likely secondary to pulmonary edema --CXR:Cardiomegaly with progressive mixed interstitial and alveolar opacities suggestive of pulmonary edema versus multifocal pneumonia. Small pleural effusions. Masslike opacity of the right lung base again noted. Patient had significant worsening shortness of breath associated with hypoxia, tachypnea and tachycardia overnight and was initially placed on nonrebreather and later on BiPAP Discussed with nephrology today for urgent hemodialysis Patient had 2 episodes of syncope while getting hemodialysis and so was discontinued due to intolerance Currently on BiPAP Offered transfer to tertiary care facility for further care--Patient and patient's daughter (POA) prefers not not to be transferred to tertiary care facility for escalation of care (possible CRRT, IR intervention) Patient and family prefers to be DNI/DNR. Patient's daughter informs that her mother had undergone through lot of suffering Patient/Family understands her critical condition and agrees with current management Patient is unstable for dialysis today, nephrology plans to retry dialysis tomorrow if remains stable Appreciate pulmonary input Acute GI bleeding Not on anticoagulation Normal INR Appreciate GI Input Patient aware of critical condition and is ok with no transfusion currently Noted Hb drop but too risky to transfuse given dialysis patient in volume overload status Given patient's critical condition, GI defers any endoscopic interventions currently Continue IV Protonix Acute on chronic anemia Thrombocytopenia Likely multifactorial--acute retroperitoneal hemorrhage, CKD, anemia of chronic disease, possible inherent bone marrow disorder/infiltration with malignancy Continue weekly vitamin B12 and daily folic acid supplements Monitor H&H and transfuse PRBCs as needed if clinically appropriate S/P PRBCs Chronic diastolic heart failure, some congestion on CXR Remains stable Denies any cardiac symptoms No signs and or symptoms of fluid overload Denies any shortness of breath and/or increasing edema (2) Acute encephalopathy: Plan: Likely secondary to postictal status and is complicated by use of narcotic pain medication and anxiolytics Secondary to metastatic lesion in the brain with edema Acute encephalopathy resolved (3) Metastasis to brain: Plan: 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, liver and spleen MRI brain as above Radiation oncology and Oncology Input appreciated Appreciate palliative care input and recommendation Repeat CT head with contrast confirmed metastatic disease with vasogenic edema in the brain Appreciate radiation oncology input Continue radiation therapy Also on Decadron Needs PET scan and further evaluation as outpatient (4) ESRD (end stage renal disease) on dialysis: Plan: ESRD Hyperkalemia Received Bicarb and IV insulin for hyperkalemia Appreciate Nephrology Input Continue dialysis per nephrology Intolerance to dialysis today Very poor prognosis (5) COPD (chronic obstructive pulmonary disease): Plan: H/O COPD and also non-small cell lung cancer of the lung Also interstitial disease in the lung is complicating COPD and shortness of breath chronic respiratory failure on oxygen (6) Nodular goiter: (7) Mass of right lung: Plan: History of non-small cell cancer of the lung (8) Non-small cell lung cancer (NSCLC): Plan: Right middle lobe bronchial biopsy confirmed adenocarcinoma in 2017 (9) Interstitial lung disease: Plan Other medical conditions Left breast cancer sp surgery/chemoradiation Hypothyroidism, TSH slightly elevated Past tobacco abuse DVT prophylaxis SCDs RE brain tumor, anemia, thrombocytopenia, GI bleed CODE STATUS DNI/DNR Prognosis is guarded Admission and Anticipated Discharge Date Admission Date: December 15, 2022 Subjective Patient is seen and examined at bedside Remains critical States having left flank pain controlled with medications No bleeding issues today Denies any shortness of breath today Saturating low 90s on 4 L supplemental oxygen Discussed with palliative care and GI today Family at bedside Review of Systems Review of Systems: All systems reviewed & are unremarkable except as noted in Subjective Physical Exam Physical Exam: Physical Exam: Vitals signs as noted above General Appearance: Ill-appearing, frail, thin, mild respiratory distress Head: normocephalic, Atraumatic Eyes: normal inspection, EOMI Neck: supple, Trachea midline Respiratory/Chest:Coarse breath sounds, no accessory muscle use Cardiovascular: S1, S2, No murmur Abdomen/GI:Soft, Non tender, distended, bowel sounds present Extremities/Musculoskeletal:normal inspection, no edema Neurologic/Psych:AAOX2, grossly no focal neurological deficits Skin: normal color, warm Results & Data Results & Data Vital Signs (Past 12 Hours) Vital Signs Temp Pulse Pulse Pulse Resp BP Pulse Ox 12/29/22 15:57 36.6 C 91 H 18 123/65 93 12/29/22 13:32 64 18 98 12/29/22 11:27 36.4 C L 89 20 130/59 L 99 12/29/22 08:00 12/29/22 07:51 36.9 C 90 85 18 144/82 H 100 12/29/22 05:26 70 15 100 12/29/22 05:26 72 12 100 O2 Del Method O2 Flow Rate FiO2 12/29/22 15:57 Nasal Cannula 12/29/22 13:32 Nasal Cannula 4 12/29/22 11:27 Nasal Cannula 4 12/29/22 08:00 Nasal Cannula 4 12/29/22 07:51 Nasal Cannula 4 12/29/22 05:26 30 12/29/22 05:26 BiPAP 30 Laboratory Results Short CBC 12/28/22 12/29/22 Range/Units 21:21 06:51 WBC 9.74 (4.8-10.8) K/ul Hgb 8.4 L 7.3 L (12.0-16.0) g/dl Hct 24.2 L 21.5 L (37.0-47.0) % Plt Count 68 L D (130-400) K/uL BMP 12/29/22 06:51 Sodium 139 Potassium 5.3 H Chloride 98 Carbon Dioxide 26 BUN 71 H Creatinine 3.99 H D Glucose 101 H Calcium 7.3 L (5) COPD (chronic obstructive pulmonary disease) COPD type: COPD with acute exacerbation Qualified Code(s): J44.1 - Chronic obstructive pulmonary disease with (acute) exacerbation (8) Non-small cell lung cancer (NSCLC) Laterality: right Qualified Code(s): C34.91 - Malignant neoplasm of unspecified part of right bronchus or lung
[2022-12-29] MEDS: ERTAPENEM SODIUM 500 MG in SYRINGE 0 ML IV SCH (21:07)
[2022-12-29] MEDS: SIMVASTATIN 20 MG TAB PO SCH (21:08)
[2022-12-29] MEDS: FAMOTIDINE 20 MG TAB PO SCH (21:09)
[2022-12-30] MEDS: oxyCODONE HCL IR 5 MG TAB (IMMEDIATE RELEASE) PO PRN (00:18)
[2022-12-30] MEDS: LEVALBUTEROL 1.25MG/0.5ML NEB INH SCH ×4 (01:03→19:03)
[2022-12-30] MEDS: IPRATROPIUM BROMIDE NEB SOLN 0.02% 2.5 ML VIAL INH SCH ×4 (01:03→19:03)
[2022-12-30] MEDS: HYDROmorphone INJ 0.5 MG/0.5 ML SYR IV PRN ×3 (02:23→21:29)
[2022-12-30] MEDS: LEVOTHYROXINE SODIUM 75 MCG TABLET PO SCH (05:50)
[2022-12-30 06:42] LABS: Hematocrit (blood only) 20.8 % (37.0-47.0); Hemoglobin 6.8 g/dl (12.0-16.0); Mean Corpuscular Hemoglobin 28.9 pg (25.0-34.0); Mean Corpuscular Hgb Conc 32.7 g/dL (32.0-36.0); Mean Corpuscular Volume 88.5 fL (80.0-100.0); Mean Platelet Volume 12.4 fL (9.4-12.4); Platelet Count 47 K/uL (130-400); RDW Coefficient of Variation 16.3 % (11.5-14.5); RDW Standard Deviation 52.1 fL (36.4-46.3); Red Blood Count 2.35 M/uL (4.20-5.40); White Blood Count 10.71 K/ul (4.8-10.8)
[2022-12-30 06:47] LABS: BUN Creatinine Ratio 19.2 (10-20); Calcium 7.1 mg/dl (8.6-10.3); Creatinine Clr Calc Pharmacy 8.1 ml/min; Est GFR (African American) 9.5 ml/min; Est GFR (Non-African American) 8.2 ml/min; Potassium 6.2 mmol/L (3.5-5.1)
[2022-12-30] MEDS ORDERED: DEXTROSE 50% 50 ML SYRINGE IV ONE (06:48)
[2022-12-30] MEDS ORDERED: SODIUM BICARB 8.4% INJ 50 MEQ/50 ML SYR IV STA (06:48)
[2022-12-30] MEDS ORDERED: STAT IV STA (06:49)
[2022-12-30] MEDS ORDERED: CALCIUM GLUCONATE 10% 1,000 MG in DEXTROSE 5% 50 ML IV ONE (06:49)
[2022-12-30] MEDS ORDERED: INSULIN HUMAN REGULAR PER UNIT 5 UNITS in SYRINGE 4.95 ML IV ONE (06:55)
[2022-12-30] MEDS: SUCRALFATE 1 GM/10 ML UDC PO SCH (07:25)
--- NOTE | 2022-12-30 08:51 | Pulmonology Progress Note ---
Date of Service December 30, 2022 Assessment & Plan (1) Acute and chronic respiratory failure with hypoxia: (2) Pulmonary edema: (3) ESRD (end stage renal disease) on dialysis: (4) COPD (chronic obstructive pulmonary disease): (5) Non-small cell lung cancer (NSCLC): Laterality: right Qualified Code(s): C34.91 - Malignant neoplasm of unspecified part of right bronchus or lung (6) CHF (congestive heart failure): (7) Metastasis to brain: (8) New onset seizure: Plan IMPRESSION: Unfortunate 62-year-old female with advanced metastatic cancer with new brain lesion resulting in breakthrough seizure activity who has since developed retroperitoneal bleed requiring transfusion and who has subsequently become hemodialysis intolerant and was rapid response x2 yesterday while undergoing hemodialysis treatment. Pulmonary medicine consulted for additional recommendations in this unfortunately complex individual. RECOMMENDATIONS: 1. Acute on chronic hypoxic respiratory failure - * Likely secondary to pulmonary edema. * CT imaging studies reviewed which feels worsening pulmonary edema on a patient with underlying interstitial lung disease as well as large RIGHT-sided lung mass. * Unfortunately, the patient has multiple ongoing conditions from pulmonary's perspective including COPD, interstitial lung disease, and primary lung CA with large mass. The patient has done surprisingly well to this point with these comorbid conditions, however she is now intolerant of hemodialysis so they are unable to remove fluid which is unfortunately resulted in pulmonary edema which has resulted in worsening hypoxia. While NPPV is a temporizing measure for this patient, if they are unable to remove volume, this is not a long-term option for the patient. Additionally, the patient is now requiring blood products which will only worsen her volume status. * I did have a lengthy discussion with the patient and her daughter at bedside and discussed as much. They recognize the multitude of underlying conditions which are contributing to her decline. * We did discuss that from a pulmonary perspective, we can continue with BiPAP as needed. I did report that if the patient were to require require endotracheal intubation, this would not be a lifesaving measure overall as the patient still has multiple conditions that are essentially uncorrectable moving forward. We did explain that if the patient were to undergo intubation, she would still have metastatic lung cancer as well as end-stage renal disease requiring hemodialysis. * After initial conversation, concerns was that the patient would now be undergoing hemodialysis today and the patient is at a very fragile state and had actually been a rapid response x2 during her last dialysis treatment. During this conversation, she had initially indicated that she wanted us to perform everything including intubation, chest compressions, etc. I did have this conversation with her daughters present at bedside. I did discuss that I would change orders to reflect full code. * I was contacted by nursing staff and reported that when she attempted to provide the patient with her morning medications, that she now is requesting that she does not undergo dialysis or radiation treatments today and is requesting more of a comfort approach. I did present back to bedside and had extensive conversation with the patient and her family including her daughters and . At this point, the patient reports that she does not want any further invasive management. She specifically reports that she would no longer want dialysis or radiation therapy. She does understand that transitioning away from this approach would mean that we have excepted that she is going to pass away and our goals of care would be focusing on symptom management for peaceful passing. She acknowledges this and is more focused on medications for anxiety at this point as she does admit that she is very anxious with the thought of passing away. I did discuss that once we initiate certain medication therapies, the patient may not be able to engage as well with her family, specifically benzodiazepines and narcotics. She and family acknowledge this and reports that she has had Ativan before and would prefer to start with this medication. We did discuss continuing other medications including antibiotics or other nonlife sustaining medications. They agree that they would rather have been discontinued at this point. I did provide the patient and family support to the best of my capability. We will discuss medication placements with palliative care given her significant renal dysfunction. Patient and family are comfortable with the decision making at this point. Orders placed in the system to reflect DNR/DNI status. 2. COPD - * Greater than [id number] history of smoking. * Currently on Breo Ellipta and albuterol rescue inhaler at home. * Follows primarily with [facility], but has recently seen our practice in office. * She has not had pulmonary function testing performed in 2019. They have been ordered, but are pending at this point. 3. Chronic respiratory failure with hypoxia - * Utilized for palliation as needed. 4. RIGHT middle lobe and RIGHT lower lobe mass - * Known adenocarcinoma of the RIGHT lobe being followed by [facility] hematology/oncology and radiation oncology. * No need or advantage for pulmonary intervention at this time. The lesions are obviously metastatic at this point and the patient is likely past the point of ongoing aggressive intervention. Thank you for allowing us to participate in the care of this complex patient. Pulmonary medicine will sign off at this time. Admission and Anticipated Discharge Date Admission Date: December 15, 2022 Supervising Physician Co-Signing Physician Notes Discussed with JYOTI and agree with assessment plan as noted. The patient appears to be clinically worsening. Unclear if she would tolerate additional dialysis. Again there is no role for respiratory adjuncts including BiPAP or mechanical intubation if the patient is unable to tolerate dialysis. Agree with plans to proceed with comfort care. Palliative care engaged. Pulmonary will sign off. Feel free to contact us with additional questions Subjective Patient was seen and evaluated at bedside. Overnight events were noted. Patient is now utilizing BiPAP. She reports that her work of breathing continues to worsen Physical Exam Physical Exam: VITAL SIGNS - Vital signs and nursing notes were reviewed. GENERAL - 62-year-old female appearing her stated age who is in no acute distress. Communicates well with provider and answers questions appropriately. LUNGS - Auscultation reveals diminished breath sounds with bibasilar rales. CARDIAC - RRR with S1/S2. No murmur, rubs, or gallops appreciated. PSYCH - A&Ox3 and cooperates fully with examiner. Results & Data Results & Data Vital Signs (Past 12 Hours) Vital Signs Temp Pulse Pulse Pulse Resp BP Pulse Ox 12/30/22 07:43 36.6 C 103 H 22 153/35 H 99 12/30/22 07:01 96 H 17 95 12/29/22 23:00 85 12/30/22 02:21 37 C 99 H 24 131/80 98 12/30/22 01:04 100 H 24 12/30/22 00:12 94 H 25 H 96 12/29/22 22:58 36.7 C 89 16 119/63 95 O2 Del Method O2 Flow Rate FiO2 12/30/22 07:43 Nasal Cannula 4 12/30/22 07:01 Nasal Cannula 4 12/29/22 23:00 12/30/22 02:21 Nasal Cannula 4 12/30/22 01:04 Nasal Cannula 4 12/30/22 00:12 30 12/29/22 22:58 Nasal Cannula 2 PG Care Time/CCT Total # of Minutes Spent Total Time Spent with Patient: Total time spent is greater than 50% in coordination of care (as documented) at patient's floor/unit and/or counseling patient: Coding Level of Care Code 38016 SUB INP/OBS CARE MIN Diagnoses Acute and chronic respiratory failure with hypoxia J96.21 Pulmonary edema J81.1 ESRD (end stage renal disease) on dialysis N18.6; Z99.2 COPD (chronic obstructive pulmonary disease) J44.9 Non-small cell lung cancer (NSCLC) C34.91 Laterality: right CHF (congestive heart failure) I50.9 Metastasis to brain C79.31 New onset seizure R56.9
[2022-12-30] MEDS ORDERED: ONDANSETRON INJ 2 MG/ML 2 ML VIAL IV PRN (10:22)
--- NOTE | 2022-12-30 10:44 | Communication Note ---
Date of Service: December 30, 2022 Pall Med Brief Note Advised by pulm med pt has elected comfort care and desires dc home with hospice. I have written comfort med orders Care mgt to coordinate hospice dc Please note: I am out of office tomorrow 12/31 - 01/03, returning Thursday01/05/23. Dr Valero will be covering Palliative med. Thank you for allowing us to participate in the ongoing care of this patient. Please don't hesitate to call or page with any additional concerns. Dr. Judi Naidu DNP Director, Palliative Care
[2022-12-30] MEDS: FLUTICASONE/VILANTEROL 200/25MCG 14 PUFFS/INHALER INH SCH (10:58)
[2022-12-30] MEDS: dexAMETHasone 4 MG in SYRINGE 0 ML IV SCH ×4 (10:58→21:07)
[2022-12-30] MEDS: levETIRAcetam 250 MG TAB PO SCH ×2 (10:58→21:07)
--- NOTE | 2022-12-30 11:03 | Nephrology Progress Note ---
Date of Service December 30, 2022 Assessment & Plan Admission and Anticipated Discharge Date Admission Date: December 15, 2022 Subjective Assessment & Plan (1) ESRD (end stage renal disease) on dialysis: Plan: on MWF HD normally Had a very difficult dialysis Thursday--coded and Unresponsive. Now also has issues with Bleeding. Resp failure. Went to see her to say formal elioe. Now on comforat care. I have seen for many years. very tearful and crying. No more dialysis. Subjective Seen for ESRD. very weak and Sick. Went to see her to say formal goodchrise. Now on comforat care. I have seen for many years. very tearful and crying. Review of Systems Review of Systems: All other systems were reviewed and negative except as noted in HPI Physical Exam Physical Exam: General exam: Appears comfortable, on BIPAP HEENT: Pupils are equal and reactive to light Neck: No JVD, neck is supple trachea is midline Respiratory system: Clear breath sounds bilaterally. Gastrointestinal: Abdomen is soft, non distended, non tender, bowel sounds are present CVS: Regular rate and rhythm. No murmurs, rubs or gallops Musculoskeletal: No joint or muscle tenderness Extremities: Non tender, no edema, peripheral pulses are present Neuro: no tremors, no focal neurological deficits Skin: No rashes Results & Data Vital Signs (Past 12 Hours) Vital Signs Temp Pulse Pulse Pulse Resp BP Pulse Ox 12/30/22 07:43 36.6 C 103 H 22 153/35 H 99 12/30/22 07:01 96 H 17 95 12/30/22 02:21 37 C 99 H 24 131/80 98 12/30/22 01:04 100 H 24 12/30/22 00:12 94 H 25 H 96 O2 Del Method O2 Flow Rate FiO2 12/30/22 07:43 Nasal Cannula 4 12/30/22 07:01 Nasal Cannula 4 12/30/22 02:21 Nasal Cannula 4 12/30/22 01:04 Nasal Cannula 4 12/30/22 00:12 30
--- NOTE | 2022-12-30 11:59 | Palliative Care Progress Note ---
Date of Service December 30, 2022 Assessment & Plan (1) Palliative care by specialist: (2) Cancer related pain: (3) Dyspnea and respiratory abnormalities: (4) Anxiety: (5) ESRD (end stage renal disease) on dialysis: (6) Acute and chronic respiratory failure with hypoxia: (7) Acute on chronic respiratory failure with hypoxia and hypercapnia: (8) Retroperitoneal bleed: (9) Pulmonary edema: (10) Non-small cell lung cancer (NSCLC): (11) Metastasis to brain: (12) Interstitial lung disease: Plan Transitioned to comfort care, elected DNR/DNI Disposition unclear: the family and pt want to remain at [facility] for EOL care She is not a GIP candidate at this time - does not meet GIP criteria Orders written I have discussed this case numerous times through the day with nursing, CM, primary team and pulmonary med. please note: I am out of office 12/31 - 01/03, Dr Valero is covering for any urgent /acute needs Thank you for allowing us to participate in the ongoing care of this patient. Please don't hesitate to call or page with any additional concerns. Dr. Judi Naidu DNP Director, Palliative Care Admission and Anticipated Discharge Date Admission Date: December 15, 2022 Subjective Alerted by nursing and car mgt that pt and family state they were given a choice for dc home with hospice, SNF with hospice or EOL care here in hospital. they have elected in hospital EOL care and are declining home hospice option. She has been refusing some meds today and asking for intermittent BiPAP to relieve some panic/air hunger remains very anxious and fearful of EOL transition Review of Systems Review of Systems: All systems reviewed & are unremarkable except as noted in Subjective Results & Data Vital Signs (Past 12 Hours) Vital Signs Temp Pulse Pulse Pulse Resp BP Pulse Ox 12/30/22 07:43 36.6 C 103 H 22 153/35 H 99 12/30/22 07:01 96 H 17 95 12/30/22 02:21 37 C 99 H 24 131/80 98 12/30/22 01:04 100 H 24 12/30/22 00:12 94 H 25 H 96 O2 Del Method O2 Flow Rate FiO2 12/30/22 07:43 Nasal Cannula 4 12/30/22 07:01 Nasal Cannula 4 12/30/22 02:21 Nasal Cannula 4 12/30/22 01:04 Nasal Cannula 4 12/30/22 00:12 30 PG Care Time/CCT Total # of Minutes Spent Total Time Spent: 60 Total Time Spent with Patient: Total time spent is greater than 50% in coordination of care (as documented) at patient's floor/unit and/or counseling patient: [place] [address] SUB INP/OBS CARE 3/50MIN Patient Type Established History Comprehensive Medical Decision Making Moderate Complexity Diagnoses Palliative care by specialist Z51.5 Cancer related pain G89.3 Dyspnea and respiratory abnormalities R06.00; R06.89 Anxiety F41.9 ESRD (end stage renal disease) on dialysis N18.6; Z99.2 Acute and chronic respiratory failure with hypoxia J96.21 Acute on chronic respiratory failure with hypoxia and hypercapnia J96.21; J96.22 Retroperitoneal bleed R58 Pulmonary edema J81.1 Non-small cell lung cancer (NSCLC) C34.91 Laterality: right Metastasis to brain C79.31 Interstitial lung disease J84.9 (10) Non-small cell lung cancer (NSCLC) Laterality: right Qualified Code(s): C34.91 - Malignant neoplasm of unspecified part of right bronchus or lung
--- NOTE | 2022-12-30 17:55 | Hospitalist Progress Note ---
Date of Service December 30, 2022 Assessment & Plan (1) New onset seizure: Plan: New onset seizure Secondary to increased intracranial pressure secondary to tumorigenic edema Secondary to brain metastasis --EEG:this EEG was normal during wakefulness and light sleep. Despite her CT scan showing a right frontal mass with edema, no focal abnormalities, potentially epileptogenic discharges, or abnormal slow activity was seen. --MRI Brain:The examination is degraded by motion artifact. The examination is also significantly suboptimal without IV contrast. Again seen is a large focus of edema within the high right frontoparietal region. This remains highly suspicious for underlying mass lesion or metastatic disease. This cannot be further evaluated without IV contrast. There is effacement of the overlying cortical sulci. No midline shift is seen. No additional similar appearing foci of edema are identified throughout the left hemisphere. -- Continue Keppra, Decadron Appreciate neurology input Seizure precautions Appreciate palliative care input and recommendation PT OT recommended home --Plan to start Decadron taper course upon discharge: 40 mg p.o. 4 times daily for 7 days, then 3 times daily for 7 days, then twice daily for 7 days, daily for 7 days and stop -- Radiation therapy per oncology -- Currently on comfort measures -- Palliative care following Acute retroperitoneal hemorrhage with hemoperitoneum Acute blood loss anemia In setting of chronic thrombocytopenia --CTA:Moderate to severe stenosis at the origin of the left common iliac artery. Moderate stenosis at the origin of the SMA. Hemorrhage in the left retroperitoneum. No definite evidence for active bleeding. Severely atrophic right kidney with nonspecific small hypodense lesions. Probable subcapsular hematoma involving the left kidney. H eterogeneous masslike consolidation again noted in the right middle lobe and patchy consolidations and groundglass opacities in bilateral lower lobes, concerning for an infectious/inflammatory process and/or neoplasm. Hypodense small lesions again seen throughout the spleen. Splenomegaly. Atherosclerotic changes of the vasculature. Mild aneurysmal dilatations of the abdominal aorta. Similar moderate stenoses in the mid and distal abdominal aorta. No abdominal aortic dissection. Small left and trace right pleural effusions. --CT ABD:Large acute retroperitoneal hemorrhage encasing the atrophic left kidney has increased in size from the 12/25/2022 exam's and again demonstrates intrapelvic extension with increasing moderate hemoperitoneum. No active extravasation identified on today's exam. Stable appearance of the lung bases. Cirrhotic liver. Unchanged appearance of the spleen with splenomegaly. --INR normal --S/P PRBC, platelet transfusion Monitor H&H and transfuse as needed Appreciate surgery input No extravasation seen on CT Conservative management with transfusion as needed for now Discussed with interventional radiology on 12/25/2022(Dr.Kari Mcmullen) and 12/26/2022 (Dr.Mark Uribe)--recommends conservative management Repeat CT abdomen showed mildly decreased hemoperitoneum on 12/27/22 Appreciate palliative care input Acute on chronic respiratory failure with hypoxia Volume overload likely secondary to pulmonary edema --CXR:Cardiomegaly with progressive mixed interstitial and alveolar opacities suggestive of pulmonary edema versus multifocal pneumonia. Small pleural effusions. Masslike opacity of the right lung base again noted. Patient had significant worsening shortness of breath associated with hypoxia, tachypnea and tachycardia overnight and was initially placed on nonrebreather and later on BiPAP Discussed with nephrology today for urgent hemodialysis Patient had 2 episodes of syncope while getting hemodialysis and so was discontinued due to intolerance Currently on BiPAP Offered transfer to tertiary care facility for further care--Patient and patient's daughter (POA) prefers not not to be transferred to tertiary care facility for escalation of care (possible CRRT, IR intervention) Patient and family prefers to be DNI/DNR. Patient's daughter informs that her mother had undergone through lot of suffering Patient/Family understands her critical condition and agrees with current management Appreciate pulmonary input Now transition to comfort care Acute GI bleeding Not on anticoagulation Normal INR Appreciate GI Input Patient aware of critical condition and is ok with no transfusion currently Noted Hb drop but too risky to transfuse given dialysis patient in volume overload status Given patient's critical condition, GI defers any endoscopic interventions currently Was on IV Protonix Acute on chronic anemia Thrombocytopenia Likely multifactorial--acute retroperitoneal hemorrhage, CKD, anemia of chronic disease, possible inherent bone marrow disorder/infiltration with malignancy Continue weekly vitamin B12 and daily folic acid supplements Monitor H&H and transfuse PRBCs as needed if clinically appropriate S/P PRBCs Chronic diastolic heart failure, some congestion on CXR Remains stable Denies any cardiac symptoms No signs and or symptoms of fluid overload Denies any shortness of breath and/or increasing edema (2) Acute encephalopathy: Plan: Likely secondary to postictal status and is complicated by use of narcotic pain medication and anxiolytics Secondary to metastatic lesion in the brain with edema Acute encephalopathy resolved (3) Metastasis to brain: Plan: 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, liver and spleen MRI brain as above Radiation oncology and Oncology Input appreciated Appreciate palliative care input and recommendation Repeat CT head with contrast confirmed metastatic disease with vasogenic edema in the brain Appreciate radiation oncology input Was on radiation therapy Also on Decadron on comfort care currently (4) ESRD (end stage renal disease) on dialysis: Plan: ESRD Hyperkalemia Received Bicarb and IV insulin for hyperkalemia Appreciate Nephrology Input Continue dialysis per nephrology Intolerance to dialysis today Very poor prognosis (5) COPD (chronic obstructive pulmonary disease): Plan: H/O COPD and also non-small cell lung cancer of the lung Also interstitial disease in the lung is complicating COPD and shortness of breath chronic respiratory failure on oxygen (6) Nodular goiter: (7) Mass of right lung: Plan: History of non-small cell cancer of the lung (8) Non-small cell lung cancer (NSCLC): Plan: Right middle lobe bronchial biopsy confirmed adenocarcinoma in 2017 (9) Interstitial lung disease: Plan Other medical conditions Left breast cancer sp surgery/chemoradiation Hypothyroidism, TSH slightly elevated Past tobacco abuse DVT prophylaxis SCDs RE brain tumor, anemia, thrombocytopenia, GI bleed CODE STATUS DNI/DNR Prognosis is guarded on Comfort care Admission and Anticipated Discharge Date Admission Date: December 15, 2022 Subjective Patient is seen and examined at bedside Patient offers no complaints today Denies any abdominal pain, shortness of breath, chest pain Patient and family decided to be transition to comfort care today Discussed with multiple providers today Review of Systems Review of Systems: All systems reviewed & are unremarkable except as noted in Subjective Physical Exam Physical Exam: Physical Exam: Vitals signs as noted above General Appearance: Ill-appearing, frail, thin, mild respiratory distress Head: normocephalic, Atraumatic Eyes: normal inspection, EOMI Neck: supple, Trachea midline Respiratory/Chest:Coarse breath sounds, no accessory muscle use Cardiovascular: S1, S2, No murmur Abdomen/GI:Soft, Non tender, distended, bowel sounds present Extremities/Musculoskeletal:normal inspection, no edema Neurologic/Psych:AAOX2, grossly no focal neurological deficits Skin: normal color, warm Results & Data Results & Data Vital Signs (Past 12 Hours) Vital Signs Temp Pulse Pulse Resp BP Pulse Ox O2 Del Method 12/30/22 13:04 89 16 96 Nasal Cannula 12/30/22 08:00 BiPAP 12/30/22 07:43 36.6 C 103 H 22 153/35 H 99 Nasal Cannula 12/30/22 07:01 96 H 17 95 Nasal Cannula O2 Flow Rate 12/30/22 13:04 4 12/30/22 08:00 12/30/22 07:43 4 12/30/22 07:01 4 Laboratory Results Short CBC 12/30/22 Range/Units 06:15 WBC 10.71 (4.8-10.8) K/ul Hgb 6.8 L* (12.0-16.0) g/dl Hct 20.8 L* (37.0-47.0) % Plt Count 47 L (130-400) K/uL BMP 12/30/22 12/30/22 06:15 09:51 Sodium 138 Potassium 6.2 H* 6.2 H* Chloride 97 L Carbon Dioxide 26 BUN 99 H D Creatinine 5.16 H* D Glucose 181 H Calcium 7.1 L (5) COPD (chronic obstructive pulmonary disease) COPD type: COPD with acute exacerbation Qualified Code(s): J44.1 - Chronic obstructive pulmonary disease with (acute) exacerbation (8) Non-small cell lung cancer (NSCLC) Laterality: right Qualified Code(s): C34.91 - Malignant neoplasm of unspecified part of right bronchus or lung
[2022-12-30] MEDS ORDERED: FAMOTIDINE 20 MG in SYRINGE 3 ML IV ONE (20:30)
[2022-12-30] MEDS: FOLIC ACID 1 MG TAB PO SCH (23:40)
[2022-12-30] MEDS: CALCIUM ACETATE 667 MG CAP/TAB PO SCH (23:40)
[2022-12-30] MEDS: PANTOprazole 40 MG in SYRINGE 0 ML IV SCH (23:40)
[2022-12-31] MEDS: LORazepam 2 MG/1 ML VIAL IV PRN ×2 (01:26→16:44)
[2022-12-31] MEDS: LEVALBUTEROL 1.25MG/0.5ML NEB INH PRN ×2 (01:37→13:18)
[2022-12-31] MEDS: IPRATROPIUM BROMIDE NEB SOLN 0.02% 2.5 ML VIAL INH PRN ×2 (01:37→13:19)
[2022-12-31] MEDS: IPRATROPIUM BROMIDE NEB SOLN 0.02% 2.5 ML VIAL INH SCH (07:22)
[2022-12-31] MEDS: LEVALBUTEROL 1.25MG/0.5ML NEB INH SCH (07:22)
[2022-12-31] MEDS: dexAMETHasone 4 MG in SYRINGE 0 ML IV SCH ×4 (09:06→20:38)
[2022-12-31] MEDS: FLUTICASONE/VILANTEROL 200/25MCG 14 PUFFS/INHALER INH SCH (09:06)
[2022-12-31] MEDS: levETIRAcetam 250 MG TAB PO SCH (09:07)
[2022-12-31] MEDS ORDERED: FAMOTIDINE 20 MG in SYRINGE 3 ML IV ONE (09:38)
--- NOTE | 2022-12-31 09:55 | Nephrology Progress Note ---
Date of Service December 31, 2022 Assessment & Plan Admission and Anticipated Discharge Date Admission Date: December 15, 2022 Subjective Assessment & Plan (1) ESRD (end stage renal disease) on dialysis: Plan: on MWF HD normally Had a very difficult dialysis Thursday--coded and Unresponsive. Now also has issues with Bleeding. Resp failure. Went to see her to say formal goodbye. Now on comfort care. I have seen for many years. very tearful and crying. No more dialysis. Saw her today for emotional Support and discuss what happens after stopping dialysis. She has no residual renal function and many end stage problems. She will live likely days not weeks. from ESRD is peaceful with no pain and slowly goes to peaceful sleep and . Explained this to her. Subjective Seen for ESRD. very weak and Sick. Went to see her to say formal goodbye. Now on comfort care. I have seen for many years. very tearful and crying. Review of Systems Review of Systems: All other systems were reviewed and negative except as noted in HPI Physical Exam Physical Exam: General exam: Appears comfortable, on BIPAP HEENT: Pupils are equal and reactive to light Neck: No JVD, neck is supple trachea is midline Respiratory system: Clear breath sounds bilaterally. Gastrointestinal: Abdomen is soft, non distended, non tender, bowel sounds are present CVS: Regular rate and rhythm. No murmurs, rubs or gallops Musculoskeletal: No joint or muscle tenderness Extremities: Non tender, no edema, peripheral pulses are present Neuro: no tremors, no focal neurological deficits Skin: No rashes Results & Data Vital Signs (Past 12 Hours) Vital Signs Pulse Resp Pulse Ox O2 Del Method O2 Flow Rate 12/31/22 07:23 82 18 97 Nasal Cannula 4 12/31/22 01:39 76 18 93 Nasal Cannula 4
[2022-12-31] MEDS ORDERED: SUCRALFATE 1 GM TAB PO PRN (10:30)
--- NOTE | 2022-12-31 10:34 | Palliative Care Progress Note ---
Date of Service December 31, 2022 Assessment & Plan (1) Abdominal pain: Plan: with retroperitoneal bleed We discussed availability of medications and that she does not need to be in pain. Her daughter is concerned that she is not speaking up because she is afraid. We talked about her getting more sleepy regardless of medications with progressive uremia. We also discussed opportunity now while she is awake to have important discussions and not leave anything unsaid. After further discussion, it was decided that hydromorphone will be ordered routinely for her constant pain but she has opportunity to refuse if she doesn't want it. Will continue prn dosing as well. (2) Acute dyspnea: Plan: With COPD and heart failure She feels better with neb treatments. Continue neb treatments as tolerated On O2 (3) Palliative care encounter: Plan: Spoke with Mary Lou, her daughter and other family members at bedside. They were able to speak with Dr. Marr earlier this morning about what to expect. They do not have any further questions at this time. Discussed plan of care with transportation sales consultant and Anticipated Discharge Date Admission Date: December 15, 2022 Subjective Sitting on edge of bed. Short of breath after using commode. Complains of pain in her abdomen and indigestion. She has been reluctant to use pain medication and does not want to be sleepy. Review of Systems Review of Systems: ESAS Pain 2/3 Dyspnea 1/3 Nausea 1/3 Drowsiness 0/3 Physical Exam Constitutional: + ill appearing Respiratory: + uses accessory muscles Cardiovascular: Extremities: + edema Neurologic: moves all extremities and awake Results & Data Vital Signs (Past 12 Hours) Vital Signs Pulse Resp Pulse Ox O2 Del Method O2 Flow Rate 12/31/22 07:23 82 18 97 Nasal Cannula 4 12/31/22 01:39 76 18 93 Nasal Cannula 4 PG Care Time/CCT Total # of Minutes Spent Total Time Spent: 40 Total Time Spent with Patient: Total time spent is greater than 50% in coordination of care (as documented) at patient's floor/unit and/or counseling patient: [id number] symptom management, patient and family education and support, coordination of care Coding Level of Care Code 31374 SUB INP/OBS CARE 2/35MIN Diagnoses Abdominal pain R10.11 Abdominal location: right upper quadrant Acute dyspnea R06.00 Palliative care encounter Z51.5 (1) Abdominal pain Abdominal location: right upper quadrant Qualified Code(s): R10.11 - Right upper quadrant pain
[2022-12-31] MEDS: HYDROmorphone INJ 0.5 MG/0.5 ML SYR IV PRN (10:43)
[2022-12-31] MEDS: HYDROmorphone INJ 0.5 MG/0.5 ML SYR IV SCH ×3 (11:09→18:33)
--- NOTE | 2022-12-31 19:32 | Hospitalist Progress Note ---
Date of Service December 31, 2022 Assessment & Plan (1) New onset seizure: Plan: New onset seizure Secondary to increased intracranial pressure secondary to tumorigenic edema Secondary to brain metastases --EEG:this EEG was normal during wakefulness and light sleep. Despite her CT scan showing a right frontal mass with edema, no focal abnormalities, potentially epileptogenic discharges, or abnormal slow activity was seen. --MRI Brain:The examination is degraded by motion artifact. The examination is also significantly suboptimal without IV contrast. Again seen is a large focus of edema within the high right frontoparietal region. This remains highly suspicious for underlying mass lesion or metastatic disease. This cannot be further evaluated without IV contrast. There is effacement of the overlying cortical sulci. No midline shift is seen. No additional similar appearing foci of edema are identified throughout the left hemisphere. -- Continue Keppra, Decadron Appreciate neurology input Seizure precautions Appreciate palliative care input and recommendation PT OT recommended home --Previoiously planned to start Decadron taper course upon discharge: 40 mg p.o. 4 times daily for 7 days, then 3 times daily for 7 days, then twice daily for 7 days, daily for 7 days and stop -- Radiation therapy per oncology -- Currently on comfort measures -- Palliative care following Acute retroperitoneal hemorrhage with hemoperitoneum Acute blood loss anemia In setting of chronic thrombocytopenia --CTA:Moderate to severe stenosis at the origin of the left common iliac fannie ry. Moderate stenosis at the origin of the SMA. Hemorrhage in the left retroperitoneum. No definite evidence for active bleeding. Severely atrophic right kidney with nonspecific small hypodense lesions. Probable subcapsular hematoma involving the left kidney. Heterogeneous masslike consolidation again noted in the right middle lobe and patchy consolidations and groundglass opacities in bilateral lower lobes, concerning for an infectious/inflammatory process and/or neoplasm. Hypodense small lesions again seen throughout the spleen. Splenomegaly. Atherosclerotic changes of the vasculature. Mild aneurysmal dilatations of the abdominal aorta. Similar moderate stenoses in the mid and distal abdominal aorta. No abdominal aortic dissection. Small left and trace right pleural effusions. --CT ABD:Large acute retroperitoneal hemorrhage encasing the atrophic left kidney has increased in size from the 12/25/2022 exam's and again demonstrates intrapelvic extension with increasing moderate hemoperitoneum. No active extravasation identified on today's exam. Stable appearance of the lung bases. Cirrhotic liver. Unchanged appearance of the spleen with splenomegaly. --INR normal --S/P PRBC, platelet transfusion Monitor H&H and transfuse as needed Appreciate surgery input No extravasation seen on CT Conservative management with transfusion as needed for now Discussed with interventional radiology on 12/25/2022(Dr.Kari Mcmullen) and 12/26/2022 (Dr.Mark Uribe)--recommends conservative management Repeat CT abdomen showed mildly decreased hemoperitoneum on 12/27/22 Appreciate palliative care input Acute on chronic respiratory failure with hypoxia Volume overload likely secondary to pulmonary edema --CXR:Cardiomegaly with progressive mixed interstitial and alveolar opacities suggestive of pulmonary edema versus multifocal pneumonia. Small pleural effusions. Masslike opacity of the right lung base again noted. Patient had significant worsening shortness of breath associated with hypoxia, tachypnea and tachycardia overnight and was initially placed on nonrebreather and later on BiPAP Discussed with nephrology for urgent hemodialysis Patient had 2 episodes of syncope while getting hemodialysis and so was discontinued due to intolerance Then on BiPAP Offered transfer to tertiary care facility for further care--Patient and patient's daughter (POA) prefers not not to be transferred to tertiary care facility for escalation of care (possible CRRT, IR intervention) Patient and family prefers to be DNI/DNR. Patient's daughter informs that her mother had undergone through lot of suffering Patient/Family understands her critical condition and agrees with current management Appreciate pulmonary input Now transition to comfort care Acute GI bleeding Not on anticoagulation Normal INR Appreciate GI Input Patient aware of critical condition and is ok with no transfusion currently Noted Hb drop but too risky to transfuse given dialysis patient in volume overload status Given patient's critical condition, GI defers any endoscopic interventions currently Was on IV Protonix Acute on chronic anemia Thrombocytopenia Likely multifactorial--acute retroperitoneal hemorrhage, CKD, anemia of chronic disease, possible inherent bone marrow disorder/infiltration with malignancy Continue weekly vitamin B12 and daily folic acid supplements Monitor H&H and transfuse PRBCs as needed if clinically appropriate S/P PRBCs Chronic diastolic heart failure, some congestion on CXR Remains stable Denies any cardiac symptoms Denies any shortness of breath (2) Acute encephalopathy: Plan: Likely secondary to postictal status and is complicated by use of narcotic pain medication and anxiolytics Secondary to metastatic lesion in the brain with edema Acute encephalopathy resolved (3) Metastasis to brain: Plan: 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, liver and spleen MRI brain as above Radiation oncology and Oncology Input appreciated Appreciate palliative care input and recommendation Repeat CT head with contrast confirmed metastatic disease with vasogenic edema in the brain Appreciate radiation oncology input Was on radiation therapy Also on Decadron on comfort care currently (4) ESRD (end stage renal disease) on dialysis: Plan: ESRD Hyperkalemia Received Bicarb and IV insulin for hyperkalemia Appreciate Nephrology Input Was on dialysis per nephrology ->Intolerance to dialysis now Now on comfort care (5) COPD (chronic obstructive pulmonary disease): Plan: H/O COPD and also non-small cell lung cancer of the lung Also interstitial disease in the lung is complicating COPD chronic respiratory failure on oxygen (6) Nodular goiter: (7) Mass of right lung: Plan: History of non-small cell cancer of the lung (8) Non-small cell lung cancer (NSCLC): Plan: Right middle lobe bronchial biopsy confirmed adenocarcinoma in 2017 (9) Interstitial lung disease: Plan Other medical conditions Left breast cancer sp surgery/chemoradiation Hypothyroidism, TSH slightly elevated Past tobacco abuse DVT prophylaxis: SCDs RE brain tumor, anemia, thrombocytopenia, GI bleed CODE STATUS DNI/DNR, on Comfort care Admission and Anticipated Discharge Date Admission Date: December 15, 2022 Subjective Patient seen in follow up of ESRD, retroperitoneal bleed, now on comfort care Currently laying in bed, with her eyes closed, resting. Per family, she received some medication for anxiety earlier. Discussed with Dr. Valero, palliative medicine. Patient had some abdominal discomfort and nausea earlier this morning. Medications adjusted. Multiple family members present at the bedside. Pt appears quite comfortable at this time, not able to obtain ROS Review of Systems Review of Systems: Unobtainable due to cognitive status Physical Exam Physical Exam: General Appearance: chronically Ill-appearing, frail, thin, in NAD Head: normocephalic, Atraumatic Eyes: normal inspection, EOMI Neck: supple Respiratory/Chest:Coarse breath sounds, no accessory muscle use Cardiovascular: S1, S2, No murmur Abdomen/GI:Soft, Non tender, distended, bowel sounds present Extremities/Musculoskeletal:normal inspection, no edema Neurologic/Psych: drowsy, resting w/ eyes closed (received meds prior to exam) Skin: warm, jaundiced Results & Data Results & Data Vital Signs (Past 12 Hours) Vital Signs Temp Pulse Pulse Resp BP Pulse Ox O2 Del Method 12/31/22 13:19 92 H 20 96 Nasal Cannula 12/31/22 12:00 36.7 C 77 18 149/77 H 98 Room Air 12/31/22 08:30 Nasal Cannula O2 Flow Rate 12/31/22 13:19 4 12/31/22 12:00 12/31/22 08:30 4 Medications Administered Current Inpatient Medications Acetaminophen (Acetaminophen 500 Mg Tab) 500 mg PO Q6H PRN PRN Reason: pain/fever Stop: 01/14/23 03:27 Last Admin: 12/29/22 00:43 Dose: 500 mg Benzonatate (Benzonatate 100 Mg Capsule) 100 mg PO TID PRN PRN Reason: Cough Stop: 01/27/23 07:12 Fluticasone/Vilanterol (Fluticasone/Vilanterol 200/25mcg 14 Puffs/Inhaler) 1 puffs INH QAM [facility] Stop: 01/14/23 08:59 Last Admin: 12/31/22 09:06 Dose: 1 puffs Hydromorphone HCl (Hydromorphone Inj 0.5 Mg/0.5 Ml Syr) 0.25 mg IV Q1H PRN PRN Reason: Pain or dyspnea Stop: 01/13/23 01:31 Last Admin: 12/31/22 10:43 Dose: 0.25 mg Hydromorphone HCl (Hydromorphone Inj 0.5 Mg/0.5 Ml Syr) 0.5 mg IV Q4H [facility] Stop: 01/14/23 10:59 Last Admin: 12/31/22 18:33 Dose: Not Given Promethazine HCl 6.25 mg/ (Sodium Chloride) 50.25 mls @ 201 mls/hr IV Q6H PRN PRN Reason: Nausea And Vomiting Stop: 01/14/23 03:27 Dexamethasone 4 mg/ Syringe 1 mls @ 1 mls/min IV QID [facility] Stop: 01/27/23 16:59 Last Admin: 12/31/22 16:29 Dose: 1 mls/min Ipratropium [place] (Ipratropium [place] Neb Soln 0.02% 2.5 Ml Vial) 0.5 mg INH Q4H PRN PRN Reason: SOB or wheezing Stop: 01/23/23 05:44 Last Admin: 12/31/22 13:19 Dose: 0.5 mg Levalbuterol HCl (Levalbuterol 1.25mg/0.5ml Neb) 1.25 mg INH Q4H PRN PRN Reason: SOB or wheezing Stop: 01/23/23 05:44 Last Admin: 12/31/22 13:18 Dose: 1.25 mg Levetiracetam (Levetiracetam 250 Mg Tab) 250 mg PO BID [facility] Stop: 01/28/23 08:59 Last Admin: 12/31/22 09:07 Dose: 250 mg Lorazepam (Lorazepam 2 Mg/1 Ml Vial) 1 mg IV Q10M PRN PRN Reason: seizures Stop: 01/14/23 03:27 Lorazepam (Lorazepam 2 Mg/1 Ml Vial) 0.5 mg IV Q4H PRN PRN Reason: Anxiety/Agitation Stop: 01/29/23 10:21 Last Admin: 12/31/22 16:44 Dose: 0.5 mg Ondansetron HCl (Ondansetron Inj 2 Mg/Ml 2 Ml Vial) 4 mg IV Q4H PRN PRN Reason: Nausea &/or Vomiting Stop: 01/29/23 10:21 Last Admin: 12/31/22 13:36 Dose: 4 mg Sucralfate (Sucralfate 1 Gm Tab) 1 gm PO QID PRN PRN Reason: Indigestion Stop: 01/30/23 12:59 (5) COPD (chronic obstructive pulmonary disease) COPD type: COPD with acute exacerbation Qualified Code(s): J44.1 - Chronic obstructive pulmonary disease with (acute) exacerbation (8) Non-small cell lung cancer (NSCLC) Laterality: right Qualified Code(s): C34.91 - Malignant neoplasm of unspecified part of right bronchus or lung
[2022-12-31] MEDS: levETIRAcetam 250 MG in 0.9 % SODIUM CHLORIDE 100 ML IV SCH (21:37)
[2023-01-01] MEDS: HYDROmorphone INJ 0.5 MG/0.5 ML SYR IV SCH ×4 (00:24→11:17)
[2023-01-01] MEDS ORDERED: LORazepam 2 MG/1 ML VIAL IV STA (01:15)
[2023-01-01] MEDS: HYDROmorphone INJ 0.5 MG/0.5 ML SYR IV PRN ×2 (03:23→09:18)
[2023-01-01] MEDS: LORazepam 2 MG/1 ML VIAL IV PRN (03:45)
[2023-01-01] MEDS: dexAMETHasone 4 MG in SYRINGE 0 ML IV SCH ×2 (07:18→13:53)
[2023-01-01] MEDS: levETIRAcetam 250 MG in 0.9 % SODIUM CHLORIDE 100 ML IV SCH (08:15)
[2023-01-01] MEDS: FLUTICASONE/VILANTEROL 200/25MCG 14 PUFFS/INHALER INH SCH (10:30)
[2023-01-01] MEDS: LEVALBUTEROL 1.25MG/0.5ML NEB INH PRN (11:01)
[2023-01-01] MEDS: IPRATROPIUM BROMIDE NEB SOLN 0.02% 2.5 ML VIAL INH PRN (11:01)
--- NOTE | 2023-01-01 12:08 | Hospitalist Progress Note ---
Date of Service January 01, 2023 Assessment & Plan (1) New onset seizure: Plan: New onset seizure Secondary to increased intracranial pressure secondary to tumorigenic edema Secondary to brain metastasis --EEG:this EEG was normal during wakefulness and light sleep. Despite her CT scan showing a right frontal mass with edema, no focal abnormalities, potentially epileptogenic discharges, or abnormal slow activity was seen. --MRI Brain:The examination is degraded by motion artifact. The examination is also significantly suboptimal without IV contrast. Again seen is a large focus of edema within the high right frontoparietal region. This remains highly suspicious for underlying mass lesion or metastatic disease. This cannot be further evaluated without IV contrast. There is effacement of the overlying cortical sulci. No midline shift is seen. No additional similar appearing foci of edema are identified throughout the left hemisphere. -- Uche Arreguin Appreciate neurology input Seizure precautions Appreciate palliative care input and recommendation PT OT recommended home -- Radiation therapy per oncology -- Currently on comfort measures -- Palliative care following Acute retroperitoneal hemorrhage with hemoperitoneum Acute blood loss anemia In setting of chronic thrombocytopenia --CTA:Moderate to severe stenosis at the origin of the left common iliac artery. Moderate stenosis at the origin of the SMA. Hemorrhage in the left retroperitoneum. No definite evidence for active bleeding. Severely atrophic right kidney with nonspecific small hypodense lesions. Probable subcapsular hematoma involving the left kidney. Heterogeneous masslike consolidation again noted in the right middle lobe and patchy consolidations and groundglass opacities in bilateral lower lobes, concerning for an infectious/inflammatory process and/or neoplasm. Hypodense small lesions again seen throughout the spleen. Splenomegaly. Atherosclerotic changes of the vasculature. Mild aneurysmal dilatations of the abdominal aorta. Similar moderate stenoses in the mid and distal abdominal aorta. No abdominal aortic dissection. Small left and trace right pleural effusions. --CT ABD:Large acute retroperitoneal hemorrhage encasing the atrophic left kidney has increased in size from the 12/25/2022 exam's and again demonstrates intrapelvic extension with increasing moderate hemoperitoneum. No active extravasation identified on today's exam. Stable appearance of the lung bases. Cirrhotic liver. Unchanged appearance of the spleen with splenomegaly. --INR normal --S/P PRBC, platelet transfusion Monitor H&H and transfuse as needed Appreciate surgery input No extravasation seen on CT Conservative management with transfusion as needed for now Discussed with interventional radiology on 12/25/2022 (Dr.Kari Mcmullen) and 12/26/2022 (Dr.Mark Uribe)-- recommends conservative management Repeat CT abdomen showed mildly decreased hemoperitoneum on 12/27/22 Appreciate palliative care input Acute on chronic respiratory failure with hypoxia Volume overload likely secondary to pulmonary edema --CXR:Cardiomegaly with progressive mixed interstitial and alveolar opacities suggestive of pulmonary edema versus multifocal pneumonia. Small pleural effusions. Masslike opacity of the right lung base again noted. Patient had significant worsening shortness of breath associated with hypoxia, tachypnea and tachycardia overnight and was initially placed on nonrebreather and later on BiPAP Discussed with nephrology for urgent hemodialysis Patient had 2 episodes of syncope while getting hemodialysis and so was discontinued due to intolerance Then on BiPAP Offered transfer to tertiary care facility for further care--Patient and patient's daughter (POA) prefers not not to be transferred to tertiary care facility for escalation of care (possible CRRT, IR intervention) Patient and family prefers to be DNI/DNR. Patient's daughter informs that her mother had undergone through lot of suffering Patient/Family understands her critical condition and agrees with current management Appreciate pulmonary input Now on comfort care Acute GI bleeding Not on anticoagulation Normal INR Appreciate GI Input Patient aware of critical condition and is ok with no transfusion currently Noted Hb drop but too risky to transfuse given dialysis patient in volume overload status Given patient's critical condition, GI defers any endoscopic interventions currently Was on IV Protonix Acute on chronic anemia Thrombocytopenia Likely multifactorial--acute retroperitoneal hemorrhage, CKD, anemia of chronic disease, possible inherent bone marrow disorder/infiltration with malignancy Continue weekly vitamin B12 and daily folic acid supplements Monitor H&H and transfuse PRBCs as needed if clinically appropriate S/P PRBCs Chronic diastolic heart failure, some congestion on CXR Expected to worsen when not able to do dialysis (2) Acute encephalopathy: Plan: Likely secondary to postictal status and is complicated by use of narcotic pain medication and anxiolytics Secondary to metastatic lesion in the brain with edema Acute encephalopathy resolved -> now on comfort acre and encephalopathic (3) Metastasis to brain: Plan: 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, liver and spleen MRI brain as above Radiation oncology and Oncology Input appreciated Appreciate palliative care input and recommendation Repeat CT head with contrast confirmed metastatic disease with vasogenic edema in the brain Appreciate radiation oncology input Was on radiation therapy Also on Decadron on comfort care currently (4) ESRD (end stage renal disease) on dialysis: Plan: ESRD Hyperkalemia Received Bicarb and IV insulin for hyperkalemia Appreciate Nephrology Input Was on dialysis per nephrology ->Intolerance to dialysis now Now on comfort care (5) COPD (chronic obstructive pulmonary disease): Plan: H/O COPD and also non-small cell lung cancer of the lung Also interstitial disease in the lung is complicating COPD chronic respiratory failure on oxygen (6) Nodular goiter: (7) Mass of right lung: Plan: History of non-small cell cancer of the lung (8) Non-small cell lung cancer (NSCLC): Plan: Right middle lobe bronchial biopsy confirmed adenocarcinoma in 2017 (9) Interstitial lung disease: Plan Other medical conditions Left breast cancer sp surgery/chemoradiation Hypothyroidism, TSH slightly elevated Past tobacco abuse DVT prophylaxis: SCDs RE brain tumor, anemia, thrombocytopenia CODE STATUS DNI/DNR, on Comfort care Admission and Anticipated Discharge Date Admission Date: December 15, 2022 Subjective Patient seen in follow up of lung ca w/ metastases to brain, ESRD, retroperitoneal bleed, now on comfort care Currently laying in bed, with her eyes closed, resting. Family at the bedside. Per family, patient has not been talking, however she has been comfortable. Dr. Vlaero, palliative medicine, following closely. Pt appears quite comfortable at this time, not able to obtain ROS Review of Systems Review of Systems: Unobtainable due to cognitive status Physical Exam Physical Exam: General Appearance: chronically Ill-appearing, frail, thin, in NAD Head: normocephalic, Atraumatic Eyes: normal inspection, EOMI Neck: supple Respiratory/Chest:Coarse breath sounds, no accessory muscle use Cardiovascular: S1, S2, No murmur Abdomen/GI:Soft, Non tender, distended, bowel sounds present Extremities/Musculoskeletal:normal inspection, no edema Neurologic/Psych: drowsy, resting w/ eyes closed (received meds prior to exam) Skin: warm Results & Data Results & Data Vital Signs (Past 12 Hours) Vital Signs Resp O2 Del Method O2 Flow Rate 01/01/23 11:01 16 Nasal Cannula 4 01/01/23 08:21 Nasal Cannula 4 Medications Administered Current Inpatient Medications Acetaminophen (Acetaminophen 500 Mg Tab) 500 mg PO Q6H PRN PRN Reason: pain/fever Stop: 01/14/23 03:27 Last Admin: 12/29/22 00:43 Dose: 500 mg Benzonatate (Benzonatate 100 Mg Capsule) 100 mg PO TID PRN PRN Reason: Cough Stop: 01/27/23 07:12 Fluticasone/Vilanterol (Fluticasone/Vilanterol 200/25mcg 14 Puffs/Inhaler) 1 puffs INH QAM [facility] Stop: 01/14/23 08:59 Last Admin: 01/01/23 10:30 Dose: Not Given Hydromorphone HCl (Hydromorphone Inj 0.5 Mg/0.5 Ml Syr) 1 mg IV Q4H [facility] Stop: 01/15/23 13:22 Last Admin: 01/01/23 13:52 Dose: 1 mg Hydromorphone HCl (Hydromorphone Inj 0.5 Mg/0.5 Ml Syr) 0.5 mg IV Q1H PRN PRN Reason: Pain or dyspnea Stop: 01/13/23 01:31 Promethazine HCl 6.25 mg/ (Sodium Chloride) 50.25 mls @ 201 mls/hr IV Q6H PRN PRN Reason: Nausea And Vomiting Stop: 01/14/23 03:27 Dexamethasone 4 mg/ Syringe 1 mls @ 1 mls/min IV QID [facility] Stop: 01/27/23 16:59 Last Admin: 01/01/23 13:53 Dose: 1 mls/min Levetiracetam 250 mg/ Sodium (Chloride) 102.5 mls @ 420 mls/hr IV Q12H [facility] Stop: 01/30/23 20:59 Last Infusion: 01/01/23 08:31 Dose: Infused Ipratropium Senatobia (Ipratropium Senatobia Neb Soln 0.02% 2.5 Ml Vial) 0.5 mg INH Q4H PRN PRN Reason: SOB or wheezing Stop: 01/23/23 05:44 Last Admin: 01/01/23 11:01 Dose: 0.5 mg Levalbuterol HCl (Levalbuterol 1.25mg/0.5ml Neb) 1.25 mg INH Q4H PRN PRN Reason: SOB or wheezing Stop: 01/23/23 05:44 Last Admin: 01/01/23 11:01 Dose: 1.25 mg Levetiracetam (Levetiracetam 250 Mg Tab) 250 mg PO BID KAVON Stop: 01/28/23 08:59 Last Admin: 12/31/22 09:07 Dose: 250 mg Lorazepam (Lorazepam 2 Mg/1 Ml Vial) 1 mg IV Q10M PRN PRN Reason: seizures Stop: 01/14/23 03:27 Last Admin: 01/01/23 09:14 Dose: 1 mg Lorazepam (Lorazepam 2 Mg/1 Ml Vial) 0.5 mg IV Q4H KAVON Stop: 01/31/23 13:29 Last Admin: 01/01/23 13:51 Dose: 0.5 mg Ondansetron HCl (Ondansetron Inj 2 Mg/Ml 2 Ml Vial) 4 mg IV Q4H PRN PRN Reason: Nausea &/or Vomiting Stop: 01/29/23 10:21 Last Admin: 12/31/22 13:36 Dose: 4 mg Sucralfate (Sucralfate 1 Gm Tab) 1 gm PO QID PRN PRN Reason: Indigestion Stop: 01/30/23 12:59 Last Admin: 01/01/23 01:38 Dose: 1 gm (5) COPD (chronic obstructive pulmonary disease) COPD type: COPD with acute exacerbation Qualified Code(s): J44.1 - Chronic obstructive pulmonary disease with (acute) exacerbation (8) Non-small cell lung cancer (NSCLC) Laterality: right Qualified Code(s): C34.91 - Malignant neoplasm of unspecified part of right bronchus or lung
[2023-01-01] MEDS ORDERED: HYDROmorphone INJ 0.5 MG/0.5 ML SYR IV SCH (13:30)
[2023-01-01] MEDS ORDERED: LORazepam 2 MG/1 ML VIAL IV SCH (13:30)
[2023-01-01] MEDS ORDERED: HYDROmorphone INJ 0.5 MG/0.5 ML SYR IV PRN (13:30)
--- NOTE | 2023-01-01 13:51 | Palliative Care Progress Note ---
Date of Service January 01, 2023 Assessment & Plan (1) Abdominal pain: Plan: with retroperitoneal bleed Pain with even light touch to abdomen Increase routine dosing of hydromorphone to 1mg Increase prn dose to 0.5mg with ESRD, she is at risk for opioid toxicity (2) Seizure: Plan: New onset seizures with brain metastases and vasogenic edema Possible breakthrough with IV keppra Given seizures, history of anxiety and risk of myoclonus with opioid toxicity, will start routine lorazepam Discussed increased sedation with family. They would prefer that she be comfortable, even if more lethargic. They understand that she will have increased lethargy with progressive uremia. (3) Palliative care encounter: Plan: Focus of care is comfort and symptom management. Multiple family members at bedside and all in agreement with adjustment of medications. Palliative care will follow. She is likely to within the next day or two Admission and Anticipated Discharge Date Admission Date: December 15, 2022 Subjective More lethargic. Nods to some questions but not necessarily consistent. Family concerned that she did not have adequate pain control overnight. They also note frequent episodes of seizures. These were not witnessed by staff. Review of Systems Review of Systems: Unobtainable due to reduced consciousness Physical Exam Constitutional: + ill appearing ENMT: Mouth: + dry oral mucous membranes facial grimace Respiratory: normal respiratory effort; no labored breathing no audible tracheal secretions Cardiovascular: Extremities: no edema Gastrointestinal (Abdomen): distended, tender to palpation Musculoskeletal: Extremities: + muscle atrophy Neurologic: no myoclonus noted Results & Data Vital Signs (Past 12 Hours) Vital Signs Resp O2 Del Method O2 Flow Rate 01/01/23 11:01 16 Nasal Cannula 4 01/01/23 08:21 Nasal Cannula 4 PG Care Time/CCT Total # of Minutes Spent Total Time Spent with Patient: Total time spent is greater than 50% in coordination of care (as documented) at patient's floor/unit and/or counseling patient: Coding Level of Care Code 64115 SUB INP/OBS CARE 2/35MIN Diagnoses Abdominal pain R10.11 Abdominal location: right upper quadrant Seizure R56.9 Palliative care encounter Z51.5 (1) Abdominal pain Abdominal location: right upper quadrant Qualified Code(s): R10.11 - Right upper quadrant pain
--- NOTE | 2023-01-01 16:45 | Hospitalist Progress Note ---
Date of Service January 01, 2023 Assessment & Plan Admission and Anticipated Discharge Date Admission Date: December 15, 2022 Subjective NOTE Notified by nursing staff that patient ceased to breathe at 3:57 PM. On my exam, patient is lying in bed, does not respond to voice or touch. No breath sounds, no heart sounds, no radial or carotid pulses. Pupils fixed and dilated. Family present at the bedside. MD Nahum Results & Data Results & Data Vital Signs (Past 12 Hours) Vital Signs Resp O2 Del Method O2 Flow Rate 01/01/23 11:01 16 Nasal Cannula 4 01/01/23 08:21 Nasal Cannula 4
--- NOTE | 2023-01-01 16:46 | Discharge Summary ---
Date of Service January 01, 2023 Admission HPI Per Admitting Provider History obtained from patient's family and records. Unable to obtain history from patient secondary to obtunded state. Medical history significant for chronic respiratory failure secondary to COPD/ILD on home O2, hypertension, chronic diastolic HF 2 to non-ischemic cardiomyopathy (TTE EF 55-60%, 2019), CAD/PVD as per records, ESRD on hemodialysis, left breast cancer sp surgery/chemoradiation , non-small cell lung cancer status post radiation, GERD, gastroparesis as per records, hypothyroidism, cirrhosis, chronic anemia (baseline hemoglobin 8-9), chronic thrombocytopenia, hx pulmonary vasculitis as per records, past tobacco abuse. Last confinement May 2021 for respiratory failure secondary to missed dialysis. Patient noted to have gradual slowing in cognition the last few weeks as per family. No complaints of headache. Patient never complaints as per family. Patient seen at the ER 2 weeks ago for abdominal pain complaints. CT chest showed 1. Interval expansion of the right middle lobe with a lobular low-density focus which measures 6.5 x 4.9 cm. This is surrounded by the hyperdense material within the right middle lobe seen on the prior study. A cystic/heterogeneous mass of the right middle lobe is the diagnosis of exclusion. This could also represent multiple dilated impacted right middle lobe bronchi. Therefore, follow-up bronchoscopy recommended. 2. The irregular mixed density focus within the base of the right lower lobe has also slightly increased in size and now measures 3.9 x 2.1 cm. 3. Diffuse interlobular septal thickening and near diffuse groundglass airspace opacities are again noted. 4. No change in the hyperdense mediastinal and bilateral hilar lymphadenopathy. 5. Stable cardiomegaly. Patient [place] [facility] [place] the following day for abnormal CT chest. Provider contemplated referral to patient's as per note. [facility] oncologist and radiation oncologist Patient prescribed Levaquin for Serratia marcescens on sputum CS. Provider also got in touch with PCPs office due to concerns about patient mentation. PCP appointment scheduled for this week as per daughter. Increasing weakness at home over the last few days. Last night, patient turned her head to the left. Generalized tonic-clonic seizures witnessed at home. Patient noted to be disoriented. More seizures noted at the ER as per family. Lorazepam and Keppra administered at the ER. Decadron administered at the ER with note of frontal lobe mass on CT with vasogenic edema Patient family adamantly refused C transfer recommendation from ER provider. MEDICAL HISTORY: As above. Hemodialysis MWF SURGERIES: Mastectomy, thyroidectomy, vascular procedures, back surgery. FAMILY HISTORY: Breast cancer, stroke. PERSONAL AND SOCIAL HISTORY: Past tobacco abuse. No chronic intake of alcohol. Disabled. Admission Exam Per Admitting Provider GENERAL: Obtunded, chronically ill, underweight, no respiratory distress SKIN: Pallor, warm HEENT: Pale palpebral conjunctivae, ptosis, dry buccal mucosa NECK : Supple, no tenderness CHEST : Decreased breath sounds, no tenderness HEART : RRR, systolic murmur ABDOMEN: Some distention, nontender EXTREMITIES : No LE swelling/tenderness, no other conspicuous deformities noted NEUROLOGIC : Obtunded, no facial asymmetry, gait and stance not assessed Principal Diagnosis Metastatic lung cancer, brain metastasis with new onset of seizure ESRD on HD Retroperitoneal bleed, thrombocytopenia Discharge Exam Notified by nursing staff that patient ceased to breathe at 3:57 PM. On my exam, patient is lying in bed, does not respond to voice or touch. No breath sounds, no heart sounds, no radial or carotid pulses. Pupils fixed and dilated. Discharge Data Allergies Allergy/AdvReac Type Severity Reaction Status Date / Time aspirin Allergy Severe EDEMA Verified 12/14/22 22:48 FACE/LIPS/TONGUE dipyridamole Allergy Severe "Bad Verified 12/14/22 22:48 reaction" per records naproxen Allergy Severe EDEMA Verified 12/14/22 22:48 FACE/LIPS/TONGUE atropine Allergy Intermediate Dyspnea/WHE Verified 12/14/22 22:48 EZING vancomycin Allergy Intermediate Rash/tommy Verified 12/14/22 22:48 syndrome maprotiline Allergy Unknown Unknown Verified 12/14/22 22:48 latex Allergy Unknown Verified 12/14/22 22:49 valacyclovir [From Valtrex] AdvReac Severe "FREAKED Verified 12/14/22 22:48 OUT HAD TO BE HOSPITALIZED". linezolid AdvReac Intermediate Thrombocyto Verified 12/14/22 22:48 penia salicylates AdvReac Intermediate Gastrointestinal Verified 12/14/22 22:48 Upset Consultations 12/14/22 23:58 ED Decision to Admit Stat 12/15/22 01:03 Consult Oncology Routine Consult Radiation Oncology Routine 12/15/22 03:28 Consult Nephrology Routine Consult Neurology Routine 12/16/22 11:51 Consult Palliative Care Routine 12/25/22 17:37 Consult General Surgery Routine 12/28/22 15:26 Consult Gastroenterology Routine 12/29/22 07:41 Consult Pulmonology Routine Ordered Studies 12/14/22 20:05 CT head/brain wo con Stat 12/14/22 20:08 CT abd pelvis IV con only Stat 12/15/22 09:37 MRI Brain [MR brain wo con] Urgent 12/16/22 11:50 CT head/brain w con Urgent 12/19/22 07:45 CT guide rad therapy head Routine 12/25/22 08:30 CT abd pelvis wo con Urgent CT head/brain wo con Urgent 12/25/22 18:17 CTA abdomen pelvis w con [CT angio abdomen pelvis w con] Stat 12/26/22 07:00 CT abd pelvis wo con Routine 12/27/22 14:28 CT abd pelvis wo con Urgent 12/28/22 06:51 CT chest diagnostic wo con Urgent Hospital Course (1) New onset seizure: 01/01 - patient has been on comfort care, and surrounded by her family. this afternoon, at 3:57 PM. New onset seizure Secondary to increased intracranial pressure secondary to tumorigenic edema Secondary to brain metastasis --EEG:this EEG was normal during wakefulness and light sleep. Despite her CT scan showing a right frontal mass with edema, no focal abnormalities, potentially epileptogenic discharges, or abnormal slow activity was seen. --MRI Brain:The examination is degraded by motion artifact. The examination is also significantly suboptimal without IV contrast. Again seen is a large focus of edema within the high right frontoparietal region. This remains highly suspicious for underlying mass lesion or metastatic disease. This cannot be further evaluated without IV contrast. There is effacement of the overlying cortical sulci. No midline shift is seen. No additional similar appearing foci of edema are identified throughout the left hemisphere. -- Continue Keppra, Decadron Appreciate neurology input Seizure precautions Appreciate palliative care input and recommendation PT OT recommended home -- Radiation therapy per oncology -- Currently on comfort measures -- Palliative care following Acute retroperitoneal hemorrhage with hemoperitoneum Acute blood loss anemia In setting of chronic thrombocytopenia --CTA:Moderate to severe stenosis at the origin of the left common iliac artery. Moderate stenosis at the origin of the SMA. Hemorrhage in the left retroperitoneum. No definite evidence for active bleeding. Severely atrophic right kidney with nonspecific small hypodense lesions. Probable subcapsular hematoma involving the left kidney. Heterogeneous masslike consolidation again noted in the right middle lobe and patchy consolidations and groundglass opacities in bilateral lower lobes, concerning for an infectious/inflammatory process and/or neoplasm. Hypodense small lesions again seen throughout the spleen. Splenomegaly. Atherosclerotic changes of the vasculature. Mild aneurysmal dilatations of the abdominal aorta. Similar moderate stenoses in the mid and distal abdominal aorta. No abdominal aortic dissection. Small left and trace right pleural effusions. --CT ABD:Large acute retroperitoneal hemorrhage encasing the atrophic left kidney has increased in size from the 12/25/2022 exam's and again demonstrates intrapelvic extension with increasing moderate hemoperitoneum. No active extravasation identified on today's exam. Stable appearance of the lung bases. Cirrhotic liver. Unchanged appearance of the spleen with splenomegaly. --INR normal --S/P PRBC, platelet transfusion Monitor H&H and transfuse as needed Appreciate surgery input No extravasation seen on CT Conservative management with transfusion as needed for now Discussed with interventional radiology on 12/25/2022 (Dr.Kari Mcmullen) and 12/26/2022 (Dr.Mark Uribe)-- recommends conservative management Repeat CT abdomen showed mildly decreased hemoperitoneum on 12/27/22 Appreciate palliative care input Now on comfort care Acute on chronic respiratory failure with hypoxia Volume overload likely secondary to pulmonary edema --CXR:Cardiomegaly with progressive mixed interstitial and alveolar opacities suggestive of pulmonary edema versus multifocal pneumonia. Small pleural effusions. Masslike opacity of the right lung base again noted. Patient had significant worsening shortness of breath associated with hypoxia, tachypnea and tachycardia overnight and was initially placed on nonrebreather and later on BiPAP Discussed with nephrology for urgent hemodialysis Patient had 2 episodes of syncope while getting hemodialysis and so was discontinued due to intolerance Then on BiPAP Offered transfer to tertiary care facility for further care--Patient and patient's daughter (POA) prefers not not to be transferred to tertiary care facility for escalation of care (possible CRRT, IR intervention) Patient and family prefers to be DNI/DNR. Patient's daughter informs that her mother had undergone through lot of suffering Patient/Family understands her critical condition and agrees with current management Appreciate pulmonary input Now on comfort care Acute GI bleeding Not on anticoagulation Normal INR Appreciate GI Input Patient aware of critical condition and is ok with no transfusion currently Noted Hb drop but too risky to transfuse given dialysis patient in volume overload status Given patient's critical condition, GI defers any endoscopic interventions currently Was on IV Protonix Now on comfort care Acute on chronic anemia Thrombocytopenia Likely multifactorial--acute retroperitoneal hemorrhage, CKD, anemia of chronic disease, possible inherent bone marrow disorder/infiltration with malignancy vitamin B12 and daily folic acid supplements Monitor H&H and transfuse PRBCs as needed if clinically appropriate S/P PRBCs Now on comfort care Chronic diastolic heart failure, some congestion on CXR Pt on comfort care (2) Acute encephalopathy: Likely secondary to postictal status and is complicated by use of narcotic pain medication and anxiolytics Secondary to metastatic lesion in the brain with edema Acute encephalopathy resolved -> now on comfort care (3) Metastasis to brain: 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, liver and spleen MRI brain as above Radiation oncology and Oncology Input appreciated Appreciate palliative care input and recommendation Repeat CT head with contrast confirmed metastatic disease with vasogenic edema in the brain Appreciate radiation oncology input Was on radiation therapy Also on Decadron on comfort care now (4) ESRD (end stage renal disease) on dialysis: ESRD Hyperkalemia Received Bicarb and IV insulin for hyperkalemia Appreciate Nephrology Input Was on dialysis per nephrology ->Intolerance to dialysis now Now on comfort care (5) COPD (chronic obstructive pulmonary disease): H/O COPD and also non-small cell lung cancer of the lung Also interstitial disease in the lung is complicating COPD chronic respiratory failure on oxygen (6) Nodular goiter: (7) Mass of right lung: History of non-small cell cancer of the lung (8) Non-small cell lung cancer (NSCLC): Right middle lobe bronchial biopsy confirmed adenocarcinoma in 2017 (9) Interstitial lung disease: Plan Other medical conditions Left breast cancer sp surgery/chemoradiation Hypothyroidism, TSH slightly elevated Past tobacco abuse Total Time Total Time Spent Total Time Spent (In Minutes): 40 Discharge Plan Discharge Items Patient Disposition: Discharge Diagnosis: Metastatic lung cancer, brain metastasis with new onset of seizure ESRD on HD Retroperitoneal bleed, thrombocytopenia Other Date/Time: 01/01/23 15:57
== END 2023-01-01 16:30 | disposition expired | DRG 54 ==
LOC: ED 19:21 → EDINP 12-15 00:59 → SUATTDRO 12-15 00:59 → 2N 12-15 03:29 → 2W 12-15 19:10 → 2S 12-25 20:36